=== PATIENT | male | born 1960 | race African-American/Black ===

== ENCOUNTER 2020-09-11 14:27 | Inpatient (IN) | payer MEDICAID, OTHER, SELFPAY ==
--- NOTE | 2020-09-11 18:25 | PC.NURSE ---
PATIENT'S VISUAL MERCHANDISING ASSISTANT EBENEZER CALLS AT THIS TIME INQUIRING ON STATUS OF PATIENT. EBENEZER LEAVES NUMBER TO CALL IF PATIENT IS ADMITTED, OR IF DISCHARGED FOR RIDE: [phone]
[2020-09-11 18:49] VITALS: BP 136/95; PULSE 124; RESP 18; TEMP 37.1; O2SAT 99; BMI 19.4
[2020-09-11] MEDS: 0.9 % Sodium Chloride 1,000 ML 999 ML IVCONT ×2 (20:47→23:33)
[2020-09-11 21:17] LABS: Basophils Percent Auto 0.5 % (0-2); MANUAL DIFF FLAG SCAN; Mean Corpuscular Hemoglobin 20.2 pg (27.0-33.0); SCAN SMEAR FLAG 1
[2020-09-11 21:19] LABS: Eosinophils Absolute Auto 0.3 X10*3/uL (0.0-0.4); Eosinophils Percent Auto 4.4 % (0-4); Hematocrit 30.9 % (42-52); Imm Gran Abs Auto 0.01 X10*3/uL (0.00-0.03); Imm Gran Pct Auto 0.2 % (0.0-0.4); Lymphocytes Percent Auto 16.2 % (20-40); Mean Corpuscular HGB Conc 32.4 g/dl (31.0-36.0); Monocytes Absolute Auto 0.6 X10*3/uL (0.1-1.2); Monocytes Percent Auto 10.3 % (2-11); Neutrophils Absolute Auto 4.2 X10*3/uL (2.0-8.3); Neutrophils Percent Auto 68.4 % (45-73); Red Blood Count 4.94 X10*6/uL (4.60-5.80); Red Cell Distribution Width 18.3 % (11.0-16.0); White Blood Count 6.1 X10*3/uL (4.8-10.8)
[2020-09-11 21:22] LABS: INTERNATIONAL NORM RATIO 2.1 (0.9-1.1); Prothrombin Time 24.6 SEC (10.8-13.0)
[2020-09-11 21:34] LABS: Alanine Aminotransferase 55 U/L (0-40); Albumin Level 3.2 g/dL (3.5-5.0); Alkaline Phosphatase 100 U/L (39-117); Anion Gap 16 (12-20); Aspartate Amino Transferase 66 U/L (5-37); Bilirubin Direct 3.8 mg/dL (0.0-0.5); Bilirubin Total 5.9 mg/dL (0.0-1.0); Blood Urea Nitrogen 33 mg/dL (9-16); Calcium 8.3 mg/dL (8.4-10.2); Carbon Dioxide 23 mmol/L (22-29); Chloride 95 mmol/L (96-108); Creatinine Clr Calc Pharmacy 41.8; Estimated Glomerular Filt Rate 47; Glucose Random 90 mg/dL (60-115); Lipase 53 U/L (8-78); Sodium 130 mmol/L (135-145); Total Protein 7.2 g/dL (6.5-8.0)
[2020-09-11 21:35] LABS: Mean Corpuscular Volume 62.6 fL (80-98)
[2020-09-11 21:36] LABS: NRBC Pct Auto 2.8 /100WBC (0.0-0.2); PLT ABN DIST 1; Platelet Count 78 X10*3/uL (160-400)
[2020-09-11 21:38] LABS: SLIDE REVIEW VERIFIED
[2020-09-11 22:04] LABS: Glucose Urine UA NEG (NEG); Leukocyte Esterase Urine NEG (NEG); Nitrite Urine POS (NEG); PH 5.5 (5.0-8.0); Urine Blood NEG (NEG); Urine Ketones NEG (NEG); Urine Protein TRACE MG/DL (NEG-TRACE)
[2020-09-11 22:05] LABS: Appearance Urine CLEAR; Color Urine YELLOW
[2020-09-11 22:11] LABS: Bacteria Urine 1+ /LPF; RBC Urine 0 /HPF (0); Squamous Epithelial Cell Urine TRACE /LPF; WBC Urine 0 /HPF (0-4)
--- NOTE | 2020-09-11 22:34 | CT_ITS ---
EXAMINATION: CT ABDOMEN AND PELVIS WITHOUT CONTRAST CLINICAL INFORMATION: Abdominal pain COMPARISON: None TECHNIQUE: Multidetector volumetric imaging was performed from the superior aspect of the liver through the pubic symphysis. Sagittal and coronal reformatted images were obtained on the technologist's workstation. This CT examination was performed using dose optimization techniques as appropriate, variously including the following: *Automated exposure control *Adjustment of mA and/or kV according to patient size (this includes techniques or standardized protocols for targeted exams where dose is matched to indication/reason for exam; i.e. extremities or head) *Use of iterative reconstruction technique DLP: 404 mGy-cm FINDINGS: LUNG BASES: Trace right pleural effusion. Cardiomegaly. Small pericardial effusion. LIVER, GALLBLADDER, AND BILIARY TREE: The liver is normal in size, shape, and attenuation. No focal hepatic lesion or biliary ductal dilatation is present. The gallbladder is unremarkable. PANCREAS: Grossly unremarkable. SPLEEN: Unremarkable. ADRENAL GLANDS: Unremarkable. KIDNEYS AND URETERS: The kidneys are normal in size, shape, and attenuation. No hydronephrosis, hydroureter, or calculi seen. No perinephric stranding. BLADDER: Partially distended with mildly thick-walled appearance. GASTROINTESTINAL TRACT: No evidence of bowel obstruction. There is mild mural prominence of the ascending colon, of uncertain clinical significance without focal luminal distention. Appendix is suspected to be nondilated. There is a moderate volume of ascites. No free air is seen. ABDOMINAL WALL: No significant hernia is appreciated. LYMPH NODES: Normal. VASCULAR: Mild scattered atherosclerotic calcifications noted. PELVIC VISCERA: Unremarkable. OSSEOUS STRUCTURES: Unremarkable. IMPRESSION: 1. Moderate volume ascites. 2. Mild mural prominence of the ascending colon, of uncertain clinical significance due to incomplete distention. In the proper clinical setting, a colitis cannot be excluded. This could also be reactive in the setting of ascites. 3. Cardiomegaly with small pericardial effusion. Trace right pleural effusion.
[2020-09-11 23:55] VITALS: BP 114/91; PULSE 100; RESP 16; TEMP 35.7; O2SAT 100
[2020-09-12] VITALS (14 sets, daily range): BP systolic 90–129; BP diastolic 61–80; PULSE 62–132; RESP 14–18; TEMP 35.3–37.1; O2SAT 98–100; BMI 20.9
--- NOTE | 2020-09-12 00:18 | ED_ITS ---
HPI - Abdominal Pain General Chief Complaint: Abdominal Pain Stated Complaint: LOW ABD PAIN,SEEN FOR SAME Time Seen by Provider: 09/11/20 20:06 History of Present Illness HPI narrative: Patient presents to ED for mild lower abdominal pain. Patient states also feeling constipated. Patient states no nausea, vomiting, fever, or chills. Patient denies any hematuria, flank pain, fever, or chills. Pain started today MD elicited complaint: abdominal pain Location: RLQ and LLQ Quality: sharp Radiation: none Related Data Home Medications Medication Instructions Recorded Confirmed benztropine 2 mg PO BID 09/12/20 09/12/20 digoxin [Digitek] 125 mcg PO DAILY 09/12/20 09/12/20 metoprolol tartrate 25 mg PO BID 09/12/20 09/12/20 midodrine 5 mg PO TID 09/12/20 09/12/20 omeprazole 40 mg PO DAILY 09/12/20 09/12/20 risperidone 2 mg PO BID 09/12/20 09/12/20 warfarin 7.5 mg PO DAILY 09/12/20 09/12/20 Allergies Allergy/AdvReac Type Severity Reaction Status Date / Time Fish Containing Products Allergy Unknown UNKNOWN Unverified 09/11/20 18:52 PEPPERS, JALAPENO Allergy Unknown UNKNOWN Uncoded 09/11/20 18:52 Review of Systems Review of Systems Yes all other systems are reviewed and are negative Constitutional: Reports as per HPI, Reports no additional constitutional complaints, Denies anorexia, Denies body ache(s), Denies chills, Denies fatigue, Denies increased appetite and Denies lethargy Eyes: Reports as per HPI and Reports no additional eye complaints Reports system reviewed and no additional complaints, except as documented and Reports as per HPI Cardiovascular: Reports as per HPI and Reports no additional cardiovascular complaints Respiratory: Reports as per HPI and Reports no additional respiratory complaints Gastrointestinal: Reports abdominal pain, Denies belching, Denies melena, Denies bloating, Denies hematochezia, Denies change in bowel habits, Denies tenesmus, Denies change in stool character, Denies coffee ground emesis and Reports constipation Genitourinary: Reports no additional male genitourinary complaints and Reports as per HPI Comments: dysuria Musculoskeletal: Reports no additional musculoskeletal complaints and Reports as per HPI Reports system reviewed and no additional complaints, except as documented and Denies confusion Psychiatric: Denies confusion Endocrine: Denies fatigue Physical Exam Vital Signs: Vital Signs: Vital Signs Temp Pulse Resp BP Pulse Ox 09/11/20 23:55 96.3 F L 100 16 114/91 H 100 09/11/20 18:49 98.7 F 124 H 18 136/95 H 99 Body Mass Index 19.4 Const: General: cooperative, healthy appearing, comfortable, no acute distress, well developed, alert, awake and Physically active; No acute distress or confusion Orientation/consciousness: patient oriented x3 and No confusion HENMT: Head: Yes normal to inspection Eyes: General: appearance normal, both eyes and all related structures Neck: Neck: Yes normal visual inspection, Yes full ROM, Yes no lymphadenopathy, No positive Brudzinski's sign and No positive Kernig's sign Chest: Chest palpation & inspection: normal inspection of the chest and normal palpation of entire chest wall Resp: Effort & Inspection: normal respiratory effort, able to speak in complete sentences, normal respiratory pattern, no audible wheezes, no cough, respiratory effort not decreased, no grunting, no nasal flaring and no paradoxical thoraco-abdom movements Cardio: Jugular venous distension: no JVD Heart sounds: S1 normal heart sound present and S2 normal heart sound present GI: Inspection: Yes distended ( history of ascites. Liver failure.) Palpation (GI): Soft to palpation, not firm, Tenderness to palpation present (GI) (mild) in the LLQ and in the RLQ, no guarding and not rigid : General: No CVA tenderness and Yes no CVA tenderness Back/Spine/Pelvis: Back: no CVA tenderness, No CVA tenderness and No back tenderness Skin: General skin exam: no rashes or lesions noted Neuro: General: patient oriented x3, CN's II-XI intact bilaterally and No confusion Cranial nerves: Yes CN's II-XII intact bilaterally Extrem: General: Yes normal to inspection, Yes full ROM and Yes capillary refill normal Psych: Appearance: grossly normal, well kempt and not disheveled Course Course Course Narrative: although patient has only mild left quadrant tenderness, p atient present with CT scan to rule out any diverticulitis any medical/surgical emergency. Patient given IV fluids. Reevaluation(s) Reevaluation #1: Patient labs show initial RUDY. Patient given 2 bags of fluid and will repeat chemistry. Patient's urine came back positive for UTI. CT scan shows moderate ascite. presently history physical exam does not indicate SBP. Patient does not have any gauring, rigindity, or perioneal signs. Patient is afebrile, and negative elevated white blood cell count. Once again patient states mild pain was only in the left and right lower quadrant. Patient was given colace. patient was adamant that he was constipated. patient had bowel movement after taking colace. Time: 00:25 Reevaluation #2: patient after 2 bags of fluid creatinine is still elevated. Patient if still in acute kidney Failure. Case presented to hospitalist who evaluated patient and accepted the case. She agrees clinically patient does not present as SBP. CT scan negative for pyelonephritis. Negative for CVA or flanks. Abdomen on re-evaluation is benign and nontender Time: 02:29 MDM - Abdominal Pain MDM Narrative Medical decision making narrative: acute kidney failure. UTI. Patient will be admitted. Lab Data Result diagrams: 09/11/20 20:47 09/12/20 00:41 Labs: Lab Results 09/11/20 09/11/20 09/11/20 Range/Units 20:47 20:47 20:47 WBC 6.1 (4.8-10.8) X10*3/uL RBC 4.94 (4.60-5.80) X10*6/uL Hgb 10.0 L (14.0-18.0) g/dl Hct 30.9 L (42-52) % MCV 62.6 L (80-98) fL MCH 20.2 L (27.0-33.0) pg MCHC 32.4 (31.0-36.0) g/dl RDW 18.3 H (11.0-16.0) % Plt Count 78 L (160-400) X10*3/uL MPV Not Reportable Immature Gran % (Auto) 0.2 (0.0-0.4) % Neut % (Auto) 68.4 (45-73) % Lymph % (Auto) 16.2 L (20-40) % [place] % (Auto) 10.3 (2-11) % Eos % (Auto) 4.4 H (0-4) % Baso % (Auto) 0.5 (0-2) % Lymph # (Auto) 1.0 L (1.2-4.9) X10*3/uL [place] # (Auto) 0.6 (0.1-1.2) X10*3/uL Eos # (Auto) 0.3 (0.0-0.4) X10*3/uL Baso # (Auto) 0.0 (0.0-0.2) X10*3/uL Abs Immat Gran (auto) 0.01 (0.00-0.03) X10*3/uL Absolute Neuts (auto) 4.2 (2.0-8.3) X10*3/uL Absolute Nucleated RBC 0.170 H (0.0-0.012) X10*3/uL Nucleated RBC % (auto) 2.8 H (0.0-0.2) /100WBC Smear Tech's Comments VERIFIED PT 24.6 H (10.8-13.0) SEC INR 2.1 H (0.9-1.1) APTT 36.0 (24.1-38.0) SEC Sodium 130 L (135-145) mmol/L Potassium 4.0 (3.3-5.1) mmol/l Chloride 95 L (96-108) mmol/L Carbon Dioxide 23 (22-29) mmol/L Anion Gap 16 (12-20) BUN 33 H (9-16) mg/dL Creatinine 1.53 H (0.5-1.4) mg/dL Estim Creat Clear Calc 41.8 Estimated GFR 47 Random Glucose 90 (60-115) mg/dL Calcium 8.3 L (8.4-10.2) mg/dL Total Bilirubin 5.9 H (0.0-1.0) mg/dL Direct Bilirubin 3.8 H (0.0-0.5) mg/dL AST 66 H (5-37) U/L ALT 55 H (0-40) U/L Alkaline Phosphatase 100 (39-117) U/L Total Protein 7.2 (6.5-8.0) g/dL Albumin 3.2 L (3.5-5.0) g/dL Lipase 53 (8-78) U/L Urine Color Urine Appearance Urine pH (5.0-8.0) Ur Specific [place] (1.005-1.025) Urine Protein (NEG-TRACE) MG/DL Urine Glucose (UA) (NEG) MG/DL Urine Ketones (NEG) MG/DL Urine Blood (NEG) Urine Nitrite (NEG) Ur Leukocyte Esterase (NEG) Urine RBC (0) /HPF Urine WBC (0-4) /HPF Ur Squamous Epith Cells /LPF Urine Bacteria /LPF 09/11/20 09/11/20 09/12/20 Range/Units 21:55 21:55 00:41 WBC (4.8-10.8) X10*3/uL RBC (4.60-5.80) X10*6/uL Hgb (14.0-18.0) g/dl Hct (42-52) % MCV (80-98) fL MCH (27.0-33.0) pg MCHC (31.0-36.0) g/dl RDW (11.0-16.0) % Plt Count (160-400) X10*3/uL MPV Immature Gran % (Auto) (0.0-0.4) % Neut % (Auto) (45-73) % Lymph % (Auto) (20-40) % [place] % (Auto) (2-11) % Eos % (Auto) (0-4) % Baso % (Auto) (0-2) % Lymph # (Auto) (1.2-4.9) X10*3/uL [place] # (Auto) (0.1-1.2) X10*3/uL Eos # (Auto) (0.0-0.4) X10*3/uL Baso # (Auto) (0.0-0.2) X10*3/uL Abs Immat Gran (auto) (0.00-0.03) X10*3/uL Absolute Neuts (auto) (2.0-8.3) X10*3/uL Absolute Nucleated RBC (0.0-0.012) X10*3/uL Nucleated RBC % (auto) (0.0-0.2) /100WBC Smear Tech's Comments PT (10.8-13.0) SEC INR (0.9-1.1) APTT (24.1-38.0) SEC Sodium 131 L (135-145) mmol/L Potassium 3.6 (3.3-5.1) mmol/l Chloride 99 (96-108) mmol/L Carbon Dioxide 22 (22-29) mmol/L Anion Gap 14 (12-20) BUN 31 H (9-16) mg/dL Creatinine 1.42 H (0.5-1.4) mg/dL Estim Creat Clear Calc 45.1 Estimated GFR 51 Random Glucose 91 (60-115) mg/dL Calcium 7.8 L (8.4-10.2) mg/dL Total Bilirubin 5.5 H (0.0-1.0) mg/dL Direct Bilirubin (0.0-0.5) mg/dL AST 55 H (5-37) U/L ALT 50 H (0-40) U/L Alkaline Phosphatase 92 (39-117) U/L Total Protein 6.4 L (6.5-8.0) g/dL Albumin 2.9 L (3.5-5.0) g/dL Lipase (8-78) U/L Urine Color YELLOW Cancelled Urine Appearance CLEAR Cancelled Urine pH 5.5 Cancelled (5.0-8.0) Ur Specific [place] 1.020 Cancelled (1.005-1.025) Urine Protein TRACE Cancelled (NEG-TRACE) MG/DL Urine Glucose (UA) NEG Cancelled (NEG) MG/DL Urine Ketones NEG Cancelled (NEG) MG/DL Urine Blood NEG Cancelled (NEG) Urine Nitrite POS H Cancelled (NEG) Ur Leukocyte Esterase NEG Cancelled (NEG) Urine RBC 0 (0) /HPF Urine WBC 0 (0-4) /HPF Ur Squamous Epith Cells TRACE /LPF Urine Bacteria 1+ /LPF Discharge Plan Discharge Clinical Impression: Acute kidney failure, Acute UTI Patient Disposition: Admitted As Inpatient [facility] Social History Social History Alcohol intake: never Smoking Status: Never smoker Smoked in Last 30 Days: No Use of substances other than those prescribed or required for medical reasons: No Advance Directives: No Advance Directives Information Provided: No
[2020-09-12] MEDS: Docusate Sodium 100 MG CAPSULE PO (00:44)
[2020-09-12 01:09] LABS: Alanine Aminotransferase 50 U/L (0-40); Albumin Level 2.9 g/dL (3.5-5.0); Alkaline Phosphatase 92 U/L (39-117); Anion Gap 14 (12-20); Aspartate Amino Transferase 55 U/L (5-37); Bilirubin Total 5.5 mg/dL (0.0-1.0); Blood Urea Nitrogen 31 mg/dL (9-16); Calcium 7.8 mg/dL (8.4-10.2); Carbon Dioxide 22 mmol/L (22-29); Chloride 99 mmol/L (96-108); Creatinine Clr Calc Pharmacy 45.1; Estimated Glomerular Filt Rate 51; Glucose Random 91 mg/dL (60-115); Potassium 3.6 mmol/l (3.3-5.1); Sodium 131 mmol/L (135-145); Total Protein 6.4 g/dL (6.5-8.0)
--- NOTE | 2020-09-12 01:14 | PC.NURSE ---
pt ambulated to bathroom steady gait, +bm, tolerating po well. asking to go home. abd soft and nontener, nad.
--- NOTE | 2020-09-12 03:49 | P.HPIM_ITS ---
History of Present Illness Date of Service: 09/12/20 Chief Complaint: abdominal pain this is a 60-year-old male with history of CHF, atrial fib, who presents to the hospital with complaints of abdominal pain. although pt is awake, he is a poor historian. He is able to answer some questions but not all. He tells me that he has been having abdominal pain and constipated and takes Colace. He keeps repeating this statement. He is unable to follow my questions appropriately but is able to tell me that he has been having nausea vomiting and when asked reports that has not been eating and drinking well.pointed to the abdominal pain As PA all over his abdomen. pain for the past 3 weeks. Nausea and vomiting. Patient denied any fever or chills, no diarrhea or constipation. I am unable to obtain review of system due to patient's clinical Status. on arrival to the ED patient's temperature is 98.7?, pulse rate of 124 respiratory rate of 18 blood pressure 136/95 satting 99% on room air labs are significant for hemoglobin of 10 which is around his baseline, BUN of 31, creatinine of 1.42, sodium of 131, calcium 7.8, total bili of 5.5, direct bili of 3.8, AST of 55, ALT of 50, albumin of 2.9 CT abdomen showed moderate volume ascites, mild mural prominence of the ascending colon of uncertain clinical significance due to incomplete distention. In the proper clinical setting of colitis cannot be excluded. history is obtained from chart as patient not cooperating with history taking past medical history: Heart failure with with preserved ejection fraction AFib on warfarin, severe mitral stenosis, schizophrenia, history of TBI, history of congestive hepatic hepatopathy past surgical history: unknown family history: The patient is unable to provide any family history social history: Lives with his sister, history of alcohol abuse in the past but not currently. Rest of social history is on Review of Systems Review of Systems: Yes all other systems are reviewed and are negative Neurologic: Reports system reviewed and no additional complaints, except as documented PMFSH Social History Alcohol intake: never Smoking Status: Never smoker Smoked in Last 30 Days: No Use of substances other than those prescribed or required for medical reasons: No Advance Directives: No Advance Directives Information Provided: No Meds Allergies Allergy/AdvReac Type Severity Reaction Status Date / Time Fish Containing Products Allergy Unknown UNKNOWN Unverified 09/11/20 18:52 PEPPERS, JALAPENO Allergy Unknown UNKNOWN Uncoded 09/11/20 18:52 Home Medications Medication Instructions Recorded Confirmed Type benztropine 2 mg PO BID 09/12/20 09/12/20 History digoxin [Digitek] 125 mcg PO DAILY 09/12/20 09/12/20 History metoprolol tartrate 25 mg PO BID 09/12/20 09/12/20 History midodrine 5 mg PO TID 09/12/20 09/12/20 History omeprazole 40 mg PO DAILY 09/12/20 09/12/20 History risperidone 2 mg PO BID 09/12/20 09/12/20 History warfarin 7.5 mg PO DAILY 09/12/20 09/12/20 History Physical Exam Vital Signs and Narrative: Vital Signs: Last Vital Signs Temp 98.7 F 09/12/20 02:00 Pulse 98 09/12/20 02:00 Resp 14 09/12/20 02:00 BP 110/80 09/12/20 02:00 Pulse Ox 98 09/12/20 02:00 Body Mass Index 19.4 Eyes: General: appearance normal, both eyes and all related structures Pupils: Equal, round and reactive pupils present Resp: Effort & Inspection: normal respiratory effort and able to speak in complete sentences Auscultation: clear to auscultation bilaterally Cardio: Rate: regular rate Rhythm: regular rhythm GI: Other: abdomen is soft but tender throughout, no rebound or guarding Palpation (GI): Soft to palpation Auscultation: normal bowel sounds Skin: General skin exam: no rashes or lesions noted Neuro: Cranial nerves: Yes Equal, round and reactive pupils present Cognition (Neuro): normal cognition Extrem: General: Yes normal to inspection and Yes no pedal edema Results Labs Labs: Laboratory Tests 09/11/20 09/11/20 09/11/20 20:47 20:47 20:47 WBC 6.1 RBC 4.94 Hgb 10.0 L Hct 30.9 L MCV 62.6 L MCH 20.2 L MCHC 32.4 RDW 18.3 H Plt Count 78 L MPV Not Reportable Immature Gran % (Auto) 0.2 Neut % (Auto) 68.4 Lymph % (Auto) 16.2 L [place] % (Auto) 10.3 Eos % (Auto) 4.4 H Baso % (Auto) 0.5 Lymph # (Auto) 1.0 L [place] # (Auto) 0.6 Eos # (Auto) 0.3 Baso # (Auto) 0.0 Abs Immat Gran (auto) 0.01 Absolute Neuts (auto) 4.2 Absolute Nucleated RBC 0.170 H Nucleated RBC % (auto) 2.8 H Smear Tech's Comments VERIFIED PT 24.6 H INR 2.1 H APTT 36.0 Sodium 130 L Potassium 4.0 Chloride 95 L Carbon Dioxide 23 Anion Gap 16 BUN 33 H Creatinine 1.53 H Estim Creat Clear Calc 41.8 Estimated GFR 47 Random Glucose 90 Calcium 8.3 L Total Bilirubin 5.9 H Direct Bilirubin 3.8 H AST 66 H ALT 55 H Alkaline Phosphatase 100 Total Protein 7.2 Albumin 3.2 L Lipase 53 Urine Color Urine Appearance Urine pH Ur Specific [place] Urine Protein Urine Glucose (UA) Urine Ketones Urine Blood Urine Nitrite Ur Leukocyte Esterase Urine RBC Urine WBC Ur Squamous Epith Cells Urine Bacteria 09/11/20 09/11/20 09/12/20 21:55 21:55 00:41 WBC RBC Hgb Hct MCV MCH MCHC RDW Plt Count MPV Immature Gran % (Auto) Neut % (Auto) Lymph % (Auto) [place] % (Auto) Eos % (Auto) Baso % (Auto) Lymph # (Auto) [place] # (Auto) Eos # (Auto) Baso # (Auto) Abs Immat Gran (auto) Absolute Neuts (auto) Absolute Nucleated RBC Nucleated RBC % (auto) Smear Tech's Comments PT INR APTT Sodium 131 L Potassium 3.6 Chloride 99 Carbon Dioxide 22 Anion Gap 14 BUN 31 H Creatinine 1.42 H Estim Creat Clear Calc 45.1 Estimated GFR 51 Random Glucose 91 Calcium 7.8 L Total Bilirubin 5.5 H Direct Bilirubin AST 55 H ALT 50 H Alkaline Phosphatase 92 Total Protein 6.4 L Albumin 2.9 L Lipase Urine Color YELLOW Cancelled Urine Appearance CLEAR Cancelled Urine pH 5.5 Cancelled Ur Specific [place] 1.020 Cancelled Urine Protein TRACE Cancelled Urine Glucose (UA) NEG Cancelled Urine Ketones NEG Cancelled Urine Blood NEG Cancelled Urine Nitrite POS H Cancelled Ur Leukocyte Esterase NEG Cancelled Urine RBC 0 Urine WBC 0 Ur Squamous Epith Cells TRACE Urine Bacteria 1+ Imaging CT scan - abdomen: Radiologist's impression: IMPRESSION: 1. Moderate volume ascites. 2. Mild mural prominence of the ascending colon, of uncertain clinical significance due to incomplete distention. In the proper clinical setting, a colitis cannot be excluded. This could also be reactive in the setting of ascites. 3. Cardiomegaly with small pericardial effusion. Trace right pleural effusion. Assessment and Plan (1) Colitis: Status: Acute (2) Acute kidney failure: Status: Acute (3) Acute UTI: Status: Acute (4) Afib: Status: Acute (5) CHF (congestive heart failure): Status: Acute 60-year-old male who presented to the hospital with complaints of abdominal pain found to have RUDY as well as colitis # abdominal pain - most likely secondary to colitis versus ascites, SBP less likely, - patient has no leukocytosis, afebrile - no abdominal rebound or guard - CT finding as above Plan - will start him on Flagyl and ceftriaxone # RUDY - most likely prerenal secondary to dehydration and poor oral intake - improved with IV fluids given in the ED - will continue IV fluid - urine sodium creatinine - follow BMP # UTI - patient urine positive for nitrates although no WBC and leukocyte Estrace plan - will start patient ceftriaxone for the above which will cover his UT # AFib - rate controlled - on warfarin with a therapeutic INR of 2.1 - will continue warfarin, and metoprolol # history of CHF with preserved ejection fraction - no acute exacerbate - continue metoprolol and digoxin DVT prophylaxis: Warfarin date of service 09/12/2020
[2020-09-12 06:44] LABS: Prothrombin Time 24.3 SEC (10.8-13.0)
[2020-09-12] MEDS: Enoxaparin Sodium 40 MG/0.4 ML SYRINGE SUBCUT (06:50)
[2020-09-12] MEDS: 0.9 % Sodium Chloride 1,000 ML 100 ML IVCONT ×2 (07:00→16:32)
[2020-09-12] MEDS: cefTRIAXone sodium 1 GM in 0.9 % Sodium Chloride 50 ML IV (07:00)
[2020-09-12] MEDS: metroNIDAZOLE/NS 500 MG/100 ML PIGGYBACK 100 MG IV ×2 (07:37→15:00)
[2020-09-12] MEDS: Digoxin 0.125 MG TABLET PO (08:23)
[2020-09-12] MEDS: Midodrine HCl 5 MG TABLET PO ×3 (08:24→22:17)
[2020-09-12] MEDS: risperiDONE 2 MG TABLET PO ×2 (08:24→22:20)
[2020-09-12] MEDS: Omeprazole 40 MG CAPSULE.DR PO (08:24)
[2020-09-12] MEDS: Metoprolol Tartrate 25 MG TABLET PO ×2 (08:24→22:20)
[2020-09-12 08:39] LABS: C Reactive Protein 2.03 mg/dL (< or = 0.50)
--- NOTE | 2020-09-12 08:48 | MHC.CM.PN ---
pt lives c his uncle and sister in their home. he reports that he is independent in his care. his family can help him c any additional needs he may have at dc including a ride home. pt denies the need for vna at dc. dc plan is home c family, no svcs. cm to cont. to follow.
[2020-09-12 10:09] LABS: INTERNATIONAL NORM RATIO 2.1 (0.9-1.1); Prothrombin Time 25.1 SEC (10.8-13.0)
[2020-09-12 12:29] LABS: Leukocytes Stool Qualitative NEGATIVE (NEGATIVE)
[2020-09-12] MEDS: Warfarin Sodium 7.5 MG TABLET PO (14:55)
--- NOTE | 2020-09-12 15:28 | P.PNIM_ITS ---
Subjective Subjective Date of Service: 09/12/20 Interval History: c/o abd pain but otherwise a very poor historian and as such ROS is limited Physical Exam Vital Signs: Vital Signs: Vital Signs Temp Pulse Resp BP Pulse Ox 09/12/20 14:56 102 H 90/61 09/12/20 12:00 97.2 F 62 18 118/74 98 09/12/20 08:24 92 129/80 09/12/20 08:23 92 09/12/20 07:25 97.2 F 92 18 129/80 99 09/12/20 05:31 97.8 F 115 H 18 113/76 100 09/12/20 02:00 98.7 F 98 14 110/80 98 09/11/20 23:55 96.3 F L 100 16 114/91 H 100 09/11/20 18:49 98.7 F 124 H 18 136/95 H 99 Body Mass Index 20.9 Const: General: no acute distress Resp: Effort & Inspection: normal respiratory effort Auscultation: clear to auscultation bilaterally Cardio: Rate: regular rate Rhythm: regular rhythm GI: Inspection: Yes normal to inspection Palpation (GI): Tenderness to palpation present (GI) (generazlied) with no rebound tenderness Extrem: General: Yes no clubbing, cyanosis or edema Objective Data Current Medications Generic Name Dose Route Start Last Admin Trade Name Freq PRN Reason Stop Dose Admin Acetaminophen 650 mg 09/12/20 05:30 Acetaminophen 325 Mg Tablet PO Q6H PRN Pain, Mild (Pain Scale 1-3) Digoxin 0.125 mg 09/12/20 09:00 09/12/20 08:23 Digoxin 0.125 Mg Tablet PO 0.125 mg DAILY EUSEBIO Administration Docusate Sodium 100 mg 09/12/20 05:30 Docusate Sodium 100 Mg Capsule PO DAILY PRN Constipation Sodium Chloride 1,000 mls @ 100 mls/hr 09/12/20 05:30 09/12/20 07:00 Ns IVCONT 100 mls/hr .Q10H EUSEBIO Administration Ceftriaxone Sodium 1 gm/ 50 mls @ 100 mls/hr 09/12/20 06:00 09/12/20 07:36 Sodium Chloride IV Infused Q24H EUSEBIO Infusion Metronidazole 500 mg in 100 mls @ 100 mls/hr 09/12/20 06:00 09/12/20 15:00 Flagyl IV 100 mls/hr Q8H EUSEBIO Administration Metoprolol Tartrate 25 mg 09/12/20 09:00 09/12/20 08:24 Metoprolol Tartrate 25 Mg Tablet PO 25 mg BID EUSEBIO Administration Protocol Midodrine 5 mg 09/12/20 09:00 09/12/20 14:56 Midodrine Hcl 5 Mg Tablet PO 5 mg TID EUSEBIO Administration Omeprazole 40 mg 09/12/20 09:00 09/12/20 08:24 Omeprazole 40 Mg Capsule.Dr PO 40 mg DAILY EUSEBIO Administration Ondansetron HCl 4 mg 09/12/20 05:30 Ondansetron Hcl 4 Mg/2 Ml Vial IVPUSH Q8H PRN Nausea and Vomiting Risperidone 2 mg 09/12/20 09:00 09/12/20 08:24 Risperidone 2 Mg Tablet PO 2 mg BID EUSEBIO Administration Sodium Chloride 3 ml 09/12/20 08:00 09/12/20 15:01 0.9 % Sodium Chloride Flush 3 Ml Syringe IVFLUSH Not Given QSHIFT [facility] Warfarin Sodium 7.5 mg 09/12/20 16:00 09/12/20 14:55 Warfarin Sodium 7.5 Mg Tablet PO 7.5 mg DAILY@1600 EUSEBIO Administration Labs CBC & Chem 7: 09/11/20 20:47 09/12/20 00:41 Labs: Laboratory Results - last 24 hr 09/11/20 09/11/20 09/11/20 20:47 20:47 20:47 MCV 62.6 L MCH 20.2 L MCHC 32.4 RDW 18.3 H Plt Count 78 L MPV Not Reportable Immature Gran % (Auto) 0.2 Neut % (Auto) 68.4 Lymph % (Auto) 16.2 L [place] % (Auto) 10.3 Eos % (Auto) 4.4 H Baso % (Auto) 0.5 Lymph # (Auto) 1.0 L [place] # (Auto) 0.6 Eos # (Auto) 0.3 Baso # (Auto) 0.0 Abs Immat Gran (auto) 0.01 Absolute Neuts (auto) 4.2 Absolute Nucleated RBC 0.170 H Nucleated RBC % (auto) 2.8 H Smear Tech's Comments VERIFIED PT 24.6 H INR 2.1 H APTT 36.0 Anion Gap 16 Estim Creat Clear Calc 41.8 Estimated GFR 47 Random Glucose 90 Calcium 8.3 L Total Bilirubin 5.9 H Direct Bilirubin 3.8 H AST 66 H ALT 55 H Alkaline Phosphatase 100 C-Reactive Protein Total Protein 7.2 Albumin 3.2 L Lipase 53 Urine Color Urine Appearance Urine pH Ur Specific [place] Urine Protein Urine Glucose (UA) Urine Ketones Urine Blood Urine Nitrite Ur Leukocyte Esterase Urine RBC Urine WBC Ur Squamous Epith Cells Urine Bacteria Stool Leukocytes, Qual 09/11/20 09/11/20 09/12/20 21:55 21:55 00:41 MCV MCH MCHC RDW Plt Count MPV Immature Gran % (Auto) Neut % (Auto) Lymph % (Auto) [place] % (Auto) Eos % (Auto) Baso % (Auto) Lymph # (Auto) [place] # (Auto) Eos # (Auto) Baso # (Auto) Abs Immat Gran (auto) Absolute Neuts (auto) Absolute Nucleated RBC Nucleated RBC % (auto) Smear Tech's Comments PT INR APTT Anion Gap 14 Estim Creat Clear Calc 45.1 Estimated GFR 51 Random Glucose 91 Calcium 7.8 L Total Bilirubin 5.5 H Direct Bilirubin AST 55 H ALT 50 H Alkaline Phosphatase 92 C-Reactive Protein 2.03 H Total Protein 6.4 L Albumin 2.9 L Lipase Urine Color YELLOW Cancelled Urine Appearance CLEAR Cancelled Urine pH 5.5 Cancelled Ur Specific [place] 1.020 Cancelled Urine Protein TRACE Cancelled Urine Glucose (UA) NEG Cancelled Urine Ketones NEG Cancelled Urine Blood NEG Cancelled Urine Nitrite POS H Cancelled Ur Leukocyte Esterase NEG Cancelled Urine RBC 0 Urine WBC 0 Ur Squamous Epith Cells TRACE Urine Bacteria 1+ Stool Leukocytes, Qual 09/12/20 09/12/20 09/12/20 06:01 08:40 09:18 MCV MCH MCHC RDW Plt Count MPV Immature Gran % (Auto) Neut % (Auto) Lymph % (Auto) [place] % (Auto) Eos % (Auto) Baso % (Auto) Lymph # (Auto) [place] # (Auto) Eos # (Auto) Baso # (Auto) Abs Immat Gran (auto) Absolute Neuts (auto) Absolute Nucleated RBC Nucleated RBC % (auto) Smear Tech's Comments PT 24.3 H 25.1 H INR 2.0 H 2.1 H APTT Anion Gap Estim Creat Clear Calc Estimated GFR Random Glucose Calcium Total Bilirubin Direct Bilirubin AST ALT Alkaline Phosphatase C-Reactive Protein Total Protein Albumin Lipase Urine Color Urine Appearance Urine pH Ur Specific [place] Urine Protein Urine Glucose (UA) Urine Ketones Urine Blood Urine Nitrite Ur Leukocyte Esterase Urine RBC Urine WBC Ur Squamous Epith Cells Urine Bacteria Stool Leukocytes, Qual NEGATIVE Microbiology Microbiology Results: Microbiology 09/11/20 22:05 Urine clean catch - Clean Catch Midstream Urine Culture - Preliminary No growth to date. Progress Note: A&P (1) Colitis: Status: Acute Assessment and Plan: hospital d#2 60yo M with schizophrenia, HFpEF, mitral stenosis, pHTN p/w abd pain admitted for colitis, [place] 60-year-old male who presented to the hospital with complaints of abdominal pain found to have RUDY as well as colitis # abd pain # colitis # ascites - suspect colitis, less likely SBP. ceftriaxone + metronidazole d#2. check stool Cx, C diff, WBCs - GI consultation - to consider paracentesis? hx congestive hepatopathy # RUDY - suspect prerenal, improving. d/c IV fluids given hx CHF # AF - continue metoprolol - continue warfarin, INR therapeutic # HFpEF - continue metoprolol, digoxin - avoid fluid overload # history of CHF with preserved ejection fraction - no acute exacerbation - continue metoprolol and digoxin
--- NOTE | 2020-09-12 16:03 | MHC.PIE ---
P: ~1600; Patient is hypothermic, Temp 95.5 rectally. I: Assessment, vitals. Dr. Lopez notified. Stat COVID test ordered. Bear huger placed on patient. E: Patient awake, A/O to person/place, vague to situation. Patient denies sob, chest pain or dizziness. Extremities cool to touch, sclera jaundice. Will transfer patient to pod c. Next nurse to re-evaluate.
[2020-09-12 19:11] LABS: SARS COV2 PCR INHOUSE NEGATIVE (Negative)
[2020-09-12] MEDS: Acetaminophen 325 MG TABLET 650 MG PO (22:19)
[2020-09-13] VITALS (9 sets, daily range): BP systolic 100–123; BP diastolic 71–86; PULSE 77–111; RESP 16–18; TEMP 35.6–36.4; O2SAT 97–100; BMI 22.2
[2020-09-13] MEDS: metroNIDAZOLE/NS 500 MG/100 ML PIGGYBACK 100 MG IV ×4 (00:42→21:19)
[2020-09-13] MEDS: 0.9 % Sodium Chloride Flush 3 ML SYRINGE IVFLUSH ×4 (02:20→21:20)
[2020-09-13] MEDS: cefTRIAXone sodium 1 GM in 0.9 % Sodium Chloride 50 ML IV (06:38)
[2020-09-13 06:46] LABS: Hematocrit 28.4 % (42-52); Hemoglobin 9.4 g/dl (14.0-18.0); Imm Gran Abs Auto 0.01 X10*3/uL (0.00-0.03); Imm Gran Pct Auto 0.2 % (0.0-0.4); MANUAL DIFF FLAG SCAN; Mean Corpuscular HGB Conc 33.1 g/dl (31.0-36.0); Mean Corpuscular Hemoglobin 20.5 pg (27.0-33.0); Red Blood Count 4.59 X10*6/uL (4.60-5.80); SCAN SMEAR FLAG 1; White Blood Count 5.1 X10*3/uL (4.8-10.8)
[2020-09-13 06:49] LABS: Basophils Percent Auto 0.6 % (0-2); Eosinophils Absolute Auto 0.4 X10*3/uL (0.0-0.4); Eosinophils Percent Auto 7.2 % (0-4); Lymphocytes Percent Auto 18.7 % (20-40); Monocytes Absolute Auto 0.6 X10*3/uL (0.1-1.2); Monocytes Percent Auto 11.7 % (2-11); Neutrophils Absolute Auto 3.2 X10*3/uL (2.0-8.3); Neutrophils Percent Auto 61.6 % (45-73); Red Cell Distribution Width 18.2 % (11.0-16.0)
[2020-09-13] MEDS: Docusate Sodium 100 MG CAPSULE PO (06:54)
[2020-09-13 07:06] LABS: Mean Corpuscular Volume 61.9 fL (80-98); Platelet Count 73 X10*3/uL (160-400)
[2020-09-13 07:07] LABS: PLT ABN DIST 1
[2020-09-13 07:09] LABS: Anion Gap 12 (12-20); Blood Urea Nitrogen 28 mg/dL (9-16); Calcium 7.5 mg/dL (8.4-10.2); Carbon Dioxide 22 mmol/L (22-29); Chloride 103 mmol/L (96-108); Creatinine Clr Calc Pharmacy 54.7; Estimated Glomerular Filt Rate 55; Glucose Random 75 mg/dL (60-115); NRBC Pct Auto 1.8 /100WBC (0.0-0.2); Potassium 3.4 mmol/l (3.3-5.1); Sodium 134 mmol/L (135-145)
--- NOTE | 2020-09-13 07:43 | MHC.PIE ---
P: PATIENT HAS HEART RATE 120-130, DOUBLE CHECKED FOR 120 BY AUSCULTATION, IRREGULARLY IRREGULAR, IS NOT A TELEMETRY PATIENT, HAS HISTORY OF A-FIB AND HISTORY OF HFPEF. 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 BREATHING IS EASY AND REGULAR, CLEAR LUNG SOUNDS WITH DIM BASES AND SPO2 IS 100% ON ROOM AIR. PATIENT WITH IVF RUNNING AT 100 CC/ HOUR, HAS APPARENT JVD. DISCUSSED WITH MD, NEW ORDER FOR TELEMETRY, PATIENT HR SEEN TO BE 125-143 ON MONITOR. ADMINISTERED SCHEDULED METOPROLOL. NEW ORDER FOR ONE TIME TYLENOL FOR 8/10 PAIN. E: PATIENT MOVED OUT OF COVID UNIT HIS TEST RETURNED NEGATIVE.
[2020-09-13 07:45] LABS: SLIDE REVIEW VERIFIED
[2020-09-13 08:21] LABS: INTERNATIONAL NORM RATIO 1.9 (0.9-1.1); Prothrombin Time 22.9 SEC (10.8-13.0)
[2020-09-13] MEDS: Metoprolol Tartrate 25 MG TABLET PO ×2 (09:44→21:20)
[2020-09-13] MEDS: Omeprazole 40 MG CAPSULE.DR PO (09:45)
[2020-09-13] MEDS: Digoxin 0.125 MG TABLET PO (09:45)
[2020-09-13] MEDS: risperiDONE 2 MG TABLET PO ×2 (09:45→21:20)
[2020-09-13] MEDS: Midodrine HCl 5 MG TABLET PO ×3 (09:45→21:20)
--- NOTE | 2020-09-13 10:15 | P.PNIM_ITS ---
Subjective Subjective Date of Service: 09/13/20 Interval History: Abd pain improved. 2 episodes diarrhea yesterday morning. Denies fever Denies chest pain Denies dyspnea or edema Denies hematochezia Physical Exam Vital Signs: Vital Signs: Vital Signs Temp Pulse Resp BP Pulse Ox 09/13/20 09:45 78 123/82 09/13/20 09:44 78 123/82 09/13/20 07:38 97.3 F 101 H 18 118/79 100 09/13/20 03:38 96.0 F L 88 16 121/71 99 09/12/20 23:39 97.8 F 99 18 106/63 99 09/12/20 22:20 132 H 98/80 09/12/20 22:17 132 H 98/80 09/12/20 20:00 98.1 F 120 H 18 98/80 100 09/12/20 18:38 98.3 F 09/12/20 16:14 95.9 F L 09/12/20 15:51 95.5 F L 80 18 117/65 100 09/12/20 14:56 102 H 90/61 09/12/20 12:00 97.2 F 62 18 118/74 98 Body Mass Index 22.2 Const: General: no acute distress Resp: Effort & Inspection: normal respiratory effort Auscultation: clear to auscultation bilaterally Cardio: Rate: regular rate Rhythm: regular rhythm GI: Inspection: Yes normal to inspection Palpation (GI): minimally tender epigastrium Extrem: General: Yes no clubbing, cyanosis or edema Psych: limited insight Objective Data Current Medications Generic Name Dose Route Start Last Admin Trade Name Eloy PRN Reason Stop Dose Admin Acetaminophen 650 mg 09/12/20 05:30 Acetaminophen 325 Mg Tablet PO Q6H PRN Pain, Mild (Pain Scale 1-3) Digoxin 0.125 mg 09/12/20 09:00 09/13/20 09:45 Digoxin 0.125 Mg Tablet PO 0.125 mg DAILY EUSEBIO Administration Docusate Sodium 100 mg 09/12/20 05:30 09/13/20 06:54 Docusate Sodium 100 Mg Capsule PO 100 mg DAILY PRN Administration Constipation Ceftriaxone Sodium 1 gm/ 50 mls @ 100 mls/hr 09/12/20 06:00 09/13/20 07:51 Sodium Chloride IV Infused Q24H EUSEBIO Infusion Metronidazole 500 mg in 100 mls @ 100 mls/hr 09/12/20 06:00 09/13/20 07:44 Flagyl IV 100 mls/hr Q8H EUSEBIO Administration Metoprolol Tartrate 25 mg 09/12/20 09:00 09/13/20 09:44 Metoprolol Tartrate 25 Mg Tablet PO 25 mg BID EUSEBIO Administration Protocol Midodrine 5 mg 09/12/20 09:00 09/13/20 09:45 Midodrine Hcl 5 Mg Tablet PO 5 mg TID EUSEBIO Administration Omeprazole 40 mg 09/12/20 09:00 09/13/20 09:45 Omeprazole 40 Mg Capsule. PO 40 mg DAILY EUSEBIO Administration Ondansetron HCl 4 mg 09/12/20 05:30 Ondansetron Hcl 4 Mg/2 Ml Vial IVPUSH Q8H PRN Nausea and Vomiting Risperidone 2 mg 09/12/20 09:00 09/13/20 09:45 Risperidone 2 Mg Tablet PO 2 mg BID EUSEBIO Administration Sodium Chloride 3 ml 09/12/20 08:00 09/13/20 07:51 0.9 % Sodium Chloride Flush 3 Ml Syringe IVFLUSH 3 ml QSHIFT EUSEBIO Administration Warfarin Sodium 7.5 mg 09/12/20 16:00 09/12/20 14:55 Warfarin Sodium 7.5 Mg Tablet PO 7.5 mg DAILY@1600 EUSEBIO Administration Labs CBC & Chem 7: 09/13/20 05:38 09/13/20 05:38 Labs: Laboratory Results - last 24 hr 09/12/20 09/12/20 09/12/20 08:40 16:50 18:08 MCV MCH MCHC RDW Plt Count MPV Immature Gran % (Auto) Neut % (Auto) Lymph % (Auto) [place] % (Auto) Eos % (Auto) Baso % (Auto) Lymph # (Auto) [place] # (Auto) Eos # (Auto) Baso # (Auto) Abs Immat Gran (auto) Absolute Neuts (auto) Absolute Nucleated RBC Nucleated RBC % (auto) Smear Tech's Comments PT INR Anion Gap Estim Creat Clear Calc Estimated GFR Random Glucose Calcium Stool Leukocytes, Qual NEGATIVE Coronavirus (PCR) Cancelled NEGATIVE 09/13/20 09/13/20 09/13/20 05:38 05:38 07:53 MCV 61.9 L MCH 20.5 L MCHC 33.1 RDW 18.2 H Plt Count 73 L MPV Not Reportable Immature Gran % (Auto) 0.2 Neut % (Auto) 61.6 Lymph % (Auto) 18.7 L [place] % (Auto) 11.7 H Eos % (Auto) 7.2 H Baso % (Auto) 0.6 Lymph # (Auto) 1.0 L [place] # (Auto) 0.6 Eos # (Auto) 0.4 Baso # (Auto) 0.0 Abs Immat Gran (auto) 0.01 Absolute Neuts (auto) 3.2 Absolute Nucleated RBC 0.090 H Nucleated RBC % (auto) 1.8 H Smear Tech's Comments VERIFIED PT 22.9 H INR 1.9 H Anion Gap 12 Estim Creat Clear Calc 54.7 Estimated GFR 55 Random Glucose 75 Calcium 7.5 L Stool Leukocytes, Qual Coronavirus (PCR) Microbiology Microbiology Results: Microbiology 09/12/20 09:55 Stool Stool Culture - Preliminary No stool pathogens to date. 09/11/20 22:05 Urine clean catch - Clean Catch Midstream Urine Culture - Final No growth. Progress Note: A&P (1) Colitis: Status: Acute Assessment and Plan: hospital d#3 60yo M with schizophrenia, HFpEF, mitral stenosis, pHTN, AF p/w abd pain admitted for colitis, RUDY # colitis - ceftriaxone + metronidazole d#2 - stool WBCs, Cx negative to date; awaiting C diff PCR # ascites - to consider paracentesis? hx congestive hepatopathy. GI Consultation # RUDY - prerenal, improving with fluids # AF - continue metoprolol - continue warfarin, INR 1.9 today # HFpEF - continue metoprolol, digoxin - avoid fluid overload
[2020-09-13 11:57] LABS: CDIFF Ag Negative (Negative); CDIFF Internal ctrl Dots and bkg OK (V); CDiff Toxin Negative (Negative)
--- NOTE | 2020-09-13 13:29 | MHC.CM.PN ---
per rounds no dc date at this time cm will contiinue to follow
[2020-09-13] MEDS: Warfarin Sodium 7.5 MG TABLET PO (15:55)
--- NOTE | 2020-09-13 17:41 | PM.EVENT ---
Event Note Event Note: GI Consult-Full note dictated. Hx via patient(limited), RN, and EMR. Imp: 60 yo with some reported diarrhea, although not having much in the way of loose stools today. There has been no sign of bleeding, N/V, nor fevers. His abdominal exam is soft with good BS, but with possibly some component of ascites in relation to his right-sided heart failure. His CT showed very nonspecific changes in the right colon but not definitive for colitis. This may have represented some underdistention of the colon or some colonic wall edema in relation to his right-sided heart failure. I don't think he has any definitive colitis at this time based on his clinical history and CT findings. Rec: Observe, check stool specs for C&S and Cdiff when they become available, I would hold antibiotics at this time, and allow diet as tolerated. I don't think he needs a colonoscopy at this time.Please call me if things worsen from a GI standpoint. Thanks.
--- NOTE | 2020-09-13 21:41 | CONS_ITS ---
DATE OF SERVICE: 09/13/2020 REQUESTING PHYSICIAN: Jayson Lopez MD REASON FOR CONSULTATION: Diarrhea and abnormal CT scan of colon. HISTORY OF PRESENT ILLNESS: This has been obtained from the patient, who is not a very good historian, from his nurse, and from the medical record. The patient is a 60-year-old male, admitted to the hospital on September 12, for evaluation of some abdominal discomfort. He reports some small amount of loose bowel movements. He describes the abdominal discomfort as somewhat generalized in the lower abdomen. He denies any associated nausea, vomiting, nor fevers. He has not noticed any hematochezia nor melena. He reports that his appetite is fair. He presently denies any significant abdominal pain. According to the nursing staff and the patient, he has had about 1 or 2 small bowel movements today. He has been eating fairly well. CURRENT MEDICATIONS: Include IV ceftriaxone, IV Flagyl, metoprolol, digoxin, midodrine, omeprazole, risperidone, warfarin, Colace p.r.n., Zofran p.r.n., and acetaminophen p.r.n. PAST MEDICAL HISTORY: Rheumatic heart disease with some right-sided heart failure, schizophrenia. He has some chronically elevated LFTs with a component of passive liver congestion in relation to right-sided heart failure. Atrial fibrillation. Congestive heart failure. Mitral valve stenosis. Elevated LFTs with some jaundice in relation to right-sided heart failure. He has had surgery on his leg in relation to an injury. He has a history of ascites. He has some type of a history of traumatic brain injury. There is no reported AR, diabetes, nor stroke. SOCIAL HISTORY: He lives with his sister. He does not smoke. There is a significant amount of alcohol. He is originally from [facility]. FAMILY HISTORY: Noncontributory. REVIEW OF SYSTEMS: CONSTITUTIONAL: He has been feeling somewhat weak and tired. CARDIAC: No chest pain. PULMONARY: No coughing nor hemoptysis. GI: As above. PHYSICAL EXAMINATION: GENERAL: The patient is alert, pleasant, comfortable appearing male, in no distress. SKIN: Warm and dry. HEENT: Anicteric sclerae. NECK: Supple. ABDOMEN: Soft and slightly distended. Bowel sounds are normal. There is no focal mass, rebound, or guarding. He may have some ascites based on his exam. LABORATORY DATA: White blood cell count 5.1, hemoglobin 9.4, platelets 72,000. In May, had a hemoglobin of 10.7 and on admission 2 days ago, his hemoglobin was 10.0. His sodium was 134, potassium 3.4, chloride 103, CO2 of 22, BUN 28, creatinine 1.3. LFTs from yesterday showed a total bilirubin of 5.5, AST 55, ALT 50, albumin 2.9. He did have a CAT scan of the abdomen and pelvis 2 days ago on admission, which revealed a trace right pleural effusion and cardiomegaly. There was a small pericardial effusion. Liver appeared normal without any biliary disease nor masses. The GI tract was notable for some mild bowel wall thickening in the ascending colon, but this was of uncertain clinical significance. There was no sign of any bowel obstruction, abscess, nor any definitive colitis. IMPRESSION: In regard to the patient's presentation and abnormal CAT scan report, in which there were some very mild changes involving the ascending colon, I suspect that he does not have actual colitis given no reported significant diarrhea and the clinical history. I suspect the CAT scan findings are in relation to either underdistention or possibly some component of bowel wall edema in relation to the right-sided heart failure. I do not think this represents inflammatory bowel disease nor infectious colitis. In this regard, I would recommend stopping his antibiotics, checking stool specimens for any type of pathogens such as culture and sensitivity and Clostridium difficile. I would allow him to eat as tolerated. I do not think a colonoscopy is required at this time. I would continue to observe him. Certainly, if anything changes for the worse with increasing diarrhea or other obvious signs of colitis, we could then always proceed with a colonoscopy at that time if need be. However, at this point, I do not think that is necessary. In regard to the passive right-sided heart failure, this seems to be stable based on his clinical appearance. He clearly does have some ascites and ongoing jaundice, but he has had this in the past as well. I do not think any other workup is required for that. MD GAMALIEL Luna/DEYANIRA / [phone]
[2020-09-14] VITALS (13 sets, daily range): BP systolic 106–130; BP diastolic 65–84; PULSE 65–103; RESP 16–20; TEMP 35.8–37.1; O2SAT 98–100; BMI 21.7
[2020-09-14] MEDS: metroNIDAZOLE/NS 500 MG/100 ML PIGGYBACK 100 MG IV (05:20)
[2020-09-14] MEDS: cefTRIAXone sodium 1 GM in 0.9 % Sodium Chloride 50 ML IV (05:20)
[2020-09-14 06:54] LABS: Basophils Percent Auto 0.6 % (0-2); Hemoglobin 9.8 g/dl (14.0-18.0); Imm Gran Abs Auto 0.01 X10*3/uL (0.00-0.03); Imm Gran Pct Auto 0.2 % (0.0-0.4); MANUAL DIFF FLAG SCAN; SCAN SMEAR FLAG 1
[2020-09-14 06:56] LABS: Eosinophils Absolute Auto 0.3 X10*3/uL (0.0-0.4); Eosinophils Percent Auto 6.6 % (0-4); Hematocrit 29.8 % (42-52); Lymphocytes Absolute Auto 0.9 X10*3/uL (1.2-4.9); Lymphocytes Percent Auto 17.5 % (20-40); Mean Corpuscular HGB Conc 32.9 g/dl (31.0-36.0); Mean Corpuscular Hemoglobin 20.4 pg (27.0-33.0); Monocytes Absolute Auto 0.5 X10*3/uL (0.1-1.2); Monocytes Percent Auto 9.7 % (2-11); Neutrophils Absolute Auto 3.3 X10*3/uL (2.0-8.3); Neutrophils Percent Auto 65.4 % (45-73); Red Cell Distribution Width 18.2 % (11.0-16.0)
[2020-09-14 06:57] LABS: INTERNATIONAL NORM RATIO 2.6 (0.9-1.1); Prothrombin Time 30.9 SEC (10.8-13.0)
[2020-09-14 07:12] LABS: Anion Gap 14 (12-20); Blood Urea Nitrogen 23 mg/dL (9-16); Calcium 7.9 mg/dL (8.4-10.2); Carbon Dioxide 23 mmol/L (22-29); Chloride 101 mmol/L (96-108); Creatinine Clr Calc Pharmacy 57.8; Estimated Glomerular Filt Rate 60; Glucose Random 93 mg/dL (60-115); Potassium 3.8 mmol/l (3.3-5.1); Sodium 134 mmol/L (135-145)
[2020-09-14 07:24] LABS: Mean Corpuscular Volume 62.1 fL (80-98)
[2020-09-14 07:25] LABS: NRBC Pct Auto 1.2 /100WBC (0.0-0.2); PLT ABN DIST 1
[2020-09-14] MEDS: Digoxin 0.125 MG TABLET PO (08:34)
[2020-09-14] MEDS: Metoprolol Tartrate 25 MG TABLET PO ×2 (08:35→21:09)
[2020-09-14] MEDS: 0.9 % Sodium Chloride Flush 3 ML SYRINGE IVFLUSH ×3 (08:35→21:10)
[2020-09-14] MEDS: risperiDONE 2 MG TABLET PO ×2 (08:35→21:09)
[2020-09-14] MEDS: Midodrine HCl 5 MG TABLET PO ×3 (08:35→21:09)
[2020-09-14] MEDS: Omeprazole 40 MG CAPSULE.DR PO (08:35)
[2020-09-14 08:57] LABS: Platelet Count 73 X10*3/uL (160-400); SLIDE REVIEW VERIFIED
[2020-09-14] MEDS: Furosemide 20 MG/2 ML VIAL IVPUSH ×2 (10:32→16:39)
--- NOTE | 2020-09-14 13:46 | P.PNIM_ITS ---
Subjective Subjective Date of Service: 09/13/20 Interval History: C/o leg swelling + abd distension. Denies fever Denies chest pain Denies dyspnea or edema Denies hematochezia, no further diarrhea Physical Exam Vital Signs: Vital Signs: Vital Signs Temp Pulse Resp BP Pulse Ox 09/14/20 11:22 98.2 F 65 20 129/69 98 09/14/20 08:35 103 H 130/84 09/14/20 08:34 103 H 09/14/20 07:49 98.7 F 103 H 20 130/84 100 09/14/20 03:36 98.5 F 87 18 110/77 100 09/14/20 00:50 123/82 09/14/20 00:00 98.3 F 84 18 100 09/13/20 21:20 82 120/86 09/13/20 19:40 96.7 F L 82 18 120/86 100 09/13/20 16:00 97.2 F 102 H 18 110/80 97 09/13/20 15:55 111 H 100/80 Body Mass Index 21.7 Const: General: no acute distress Resp: Effort & Inspection: normal respiratory effort Auscultation: clear to auscultation bilaterally Cardio: Rate: regular rate Rhythm: regular rhythm GI: Inspection: Yes normal to inspection Palpation (GI): minimally tender epigastrium with mild distension Extrem: 1+ pitting edema bilateral lower extremities, symmetric Psych: limited insight Objective Data Current Medications Generic Name Dose Route Start Last Admin Trade Name Freq PRN Reason Stop Dose Admin Acetaminophen 650 mg 09/12/20 05:30 Acetaminophen 325 Mg Tablet PO Q6H PRN Pain, Mild (Pain Scale 1-3) Digoxin 0.125 mg 09/12/20 09:00 09/14/20 08:34 Digoxin 0.125 Mg Tablet PO 0.125 mg DAILY EUSEBIO Administration Docusate Sodium 100 mg 09/12/20 05:30 09/13/20 06:54 Docusate Sodium 100 Mg Capsule PO 100 mg DAILY PRN Administration Constipation Furosemide 20 mg 09/14/20 10:25 09/14/20 10:32 Furosemide 20 Mg/2 Ml Vial IVPUSH 20 mg BID@0900,1800 [facility] Administration Protocol Metoprolol Tartrate 25 mg 09/12/20 09:00 09/14/20 08:35 Metoprolol Tartrate 25 Mg Tablet PO 25 mg BID EUSEBIO Administration Protocol Midodrine 5 mg 09/12/20 09:00 09/14/20 08:35 Midodrine Hcl 5 Mg Tablet PO 5 mg TID EUSEBIO Administration Omeprazole 40 mg 09/12/20 09:00 09/14/20 08:35 Omeprazole 40 Mg Capsule.Dr PO 40 mg DAILY EUSEBIO Administration Ondansetron HCl 4 mg 09/12/20 05:30 Ondansetron Hcl 4 Mg/2 Ml Vial IVPUSH Q8H PRN Nausea and Vomiting Risperidone 2 mg 09/12/20 09:00 09/14/20 08:35 Risperidone 2 Mg Tablet PO 2 mg BID EUSEBIO Administration Sodium Chloride 3 ml 09/12/20 08:00 09/14/20 08:35 0.9 % Sodium Chloride Flush 3 Ml Syringe IVFLUSH 3 ml QSHIFT [facility] Administration Warfarin Sodium 7.5 mg 09/12/20 16:00 09/13/20 15:55 Warfarin Sodium 7.5 Mg Tablet PO 7.5 mg DAILY@1600 [facility] Administration Labs CBC & Chem 7: 09/14/20 05:51 09/14/20 05:51 Microbiology Microbiology Results: Microbiology 09/12/20 09:55 Stool Stool Culture - Preliminary No stool pathogens to date. 09/11/20 22:05 Urine clean catch - Clean Catch Midstream Urine Culture - Final No growth. Assessment and Plan (1) CHF (congestive heart failure): Status: Acute Assessment and Plan: hospital d#4 60yo M with schizophrenia, HFpEF, mitral stenosis, pHTN, AF p/w abd pain admitted for suspected colitis, RUDY # acute/chornic HFpEF - will give IV furosemide, trend I/O + BNP + BMP + Mg - continue metoprolol # colitis, not - per GI unlikely; will observe off of ABX [got 2d of ceftriaxone + azithr omycin] - negative stool WBCs/C diff/Cx # ascites - diureses as above. likely congestive hepatopathy. therapeutic paracentesis if worsens # RUDY - prerenal; resolved # AF - continue metoprolol + digoxin - continue warfarin, INR therapeutic today
[2020-09-14] MEDS: Warfarin Sodium 7.5 MG TABLET PO (16:39)
[2020-09-14] MEDS: Docusate Sodium 100 MG CAPSULE PO (16:39)
--- NOTE | 2020-09-14 18:33 | PC.NURSE ---
Patient with ascites, distended firm abdomen. c/o feeling tight in my stomach and legs . notified this am, at bedside for assessment. lungs diminished throughout, pitting edema +1 noted to lower arms/hands & legs. 20mg iv lasix started bid for today. pt putting out what seems to be a good amount of urine, however unable to measure d/t non-compliance with urinal. urinal provided at bedside as well as in the bathroom with frequent reminding.
[2020-09-15] VITALS (10 sets, daily range): BP systolic 108–135; BP diastolic 66–86; PULSE 59–126; RESP 16–25; TEMP 35.9–36.7; O2SAT 98–100; BMI 21.5
[2020-09-15 06:30] LABS: Basophils Percent Auto 0.4 % (0-2); Imm Gran Abs Auto 0.01 X10*3/uL (0.00-0.03); Imm Gran Pct Auto 0.2 % (0.0-0.4); MANUAL DIFF FLAG SCAN; Monocytes Absolute Auto 0.5 X10*3/uL (0.1-1.2); SCAN SMEAR FLAG 1
[2020-09-15 06:32] LABS: Eosinophils Absolute Auto 0.4 X10*3/uL (0.0-0.4); Eosinophils Percent Auto 7.6 % (0-4); Hemoglobin 9.4 g/dl (14.0-18.0); Lymphocytes Absolute Auto 0.9 X10*3/uL (1.2-4.9); Lymphocytes Percent Auto 16.6 % (20-40); Mean Corpuscular HGB Conc 32.4 g/dl (31.0-36.0); Mean Corpuscular Hemoglobin 20.1 pg (27.0-33.0); Monocytes Percent Auto 8.5 % (2-11); NRBC Pct Auto 0.9 /100WBC (0.0-0.2); Neutrophils Absolute Auto 3.6 X10*3/uL (2.0-8.3); Neutrophils Percent Auto 66.7 % (45-73); Red Blood Count 4.68 X10*6/uL (4.60-5.80); Red Cell Distribution Width 18.2 % (11.0-16.0); White Blood Count 5.4 X10*3/uL (4.8-10.8)
[2020-09-15 06:40] LABS: INTERNATIONAL NORM RATIO 4.4 (0.9-1.1); Prothrombin Time 52.5 SEC (10.8-13.0)
[2020-09-15 06:43] LABS: C Reactive Protein 1.44 mg/dL (< or = 0.50); Magnesium 1.6 mg/dL (1.6-2.6)
[2020-09-15 06:47] LABS: B Type Natriuretic Peptide 1537 pg/mL (<100)
[2020-09-15 07:10] LABS: PLT ABN DIST 1; Platelet Count 68 X10*3/uL (160-400)
[2020-09-15] MEDS: risperiDONE 2 MG TABLET PO ×2 (07:39→20:13)
[2020-09-15] MEDS: Metoprolol Tartrate 25 MG TABLET PO ×2 (07:39→20:13)
[2020-09-15] MEDS: Omeprazole 40 MG CAPSULE.DR PO (07:40)
[2020-09-15] MEDS: Digoxin 0.125 MG TABLET PO (07:40)
[2020-09-15] MEDS: Midodrine HCl 5 MG TABLET PO ×3 (07:40→20:13)
[2020-09-15] MEDS: 0.9 % Sodium Chloride Flush 3 ML SYRINGE IVFLUSH ×2 (07:41→15:57)
[2020-09-15] MEDS: Furosemide 20 MG/2 ML VIAL IVPUSH ×2 (07:42→17:14)
[2020-09-15 07:48] LABS: SLIDE REVIEW VERIFIED
[2020-09-15 09:29] LABS: Anion Gap 14 (12-20); Blood Urea Nitrogen 20 mg/dL (9-16); Carbon Dioxide 24 mmol/L (22-29); Chloride 99 mmol/L (96-108); Creatinine Clr Calc Pharmacy 58.3; Estimated Glomerular Filt Rate > 60; Glucose Random 95 mg/dL (60-115); Potassium 3.3 mmol/l (3.3-5.1); Sodium 134 mmol/L (135-145)
--- NOTE | 2020-09-15 10:17 | HO.PM.IMPN ---
Subjective Subjective Date of Service: 09/15/20 Interval History: Abd + leg swelling improved. Denies fever Denies chest pain Denies dyspnea or edema Denies hematochezia, no further diarrhea. Keeps asking for laxatives though having multiple BMs/d Physical Exam Vital Signs: Vital Signs: Vital Signs Temp Pulse Resp BP Pulse Ox 09/15/20 08:00 98.0 F 126 H 16 108/86 98 09/15/20 07:40 125 H 108/86 09/15/20 07:39 125 H 108/86 09/15/20 03:55 96.7 F L 100 18 124/82 09/14/20 23:49 96.9 F 82 16 106/73 100 09/14/20 21:09 94 110/65 09/14/20 20:00 96.5 F L 94 18 110/65 100 09/14/20 19:19 96.5 F L 94 18 110/65 100 09/14/20 16:39 86 125/66 09/14/20 15:53 97.6 F 86 20 125/66 99 09/14/20 11:22 98.2 F 65 20 129/69 98 Body Mass Index 21.5 Const: General: no acute distress Resp: Effort & Inspection: normal respiratory effort Auscultation: clear to auscultation bilaterally Cardio: Rate: regular rate Rhythm: regular rhythm GI: Inspection: Yes normal to inspection Palpation (GI): soft, non-tender Extrem: trace edema bilateral lower extremities, symmetric Psych: limited insight Objective Data Current Medications Generic Name Dose Route Start Last Admin Trade Name Freq PRN Reason Stop Dose Admin Acetaminophen 650 mg 09/12/20 05:30 Acetaminophen 325 Mg Tablet PO Q6H PRN Pain, Mild (Pain Scale 1-3) Digoxin 0.125 mg 09/12/20 09:00 09/15/20 07:40 Digoxin 0.125 Mg Tablet PO 0.125 mg DAILY EUSEBIO Administration Docusate Sodium 100 mg 09/12/20 05:30 09/14/20 16:39 Docusate Sodium 100 Mg Capsule PO 100 mg DAILY PRN Administration Constipation Furosemide 20 mg 09/14/20 10:25 09/15/20 07:42 Furosemide 20 Mg/2 Ml Vial IVPUSH 20 mg BID@0900,1800 EUSEBIO Administration Protocol Metoprolol Tartrate 25 mg 09/12/20 09:00 09/15/20 07:39 Metoprolol Tartrate 25 Mg Tablet PO 25 mg BID EUSEBIO Administration Protocol Midodrine 5 mg 09/12/20 09:00 09/15/20 07:40 Midodrine Hcl 5 Mg Tablet PO 5 mg TID EUSEBIO Administration Omeprazole 40 mg 09/12/20 09:00 09/15/20 07:40 Omeprazole 40 Mg Capsule.Dr PO 40 mg DAILY EUSEBIO Administration Ondansetron HCl 4 mg 09/12/20 05:30 Ondansetron Hcl 4 Mg/2 Ml Vial IVPUSH Q8H PRN Nausea and Vomiting Risperidone 2 mg 09/12/20 09:00 09/15/20 07:39 Risperidone 2 Mg Tablet PO 2 mg BID EUSEBIO Administration Sodium Chloride 3 ml 09/12/20 08:00 09/15/20 07:41 0.9 % Sodium Chloride Flush 3 Ml Syringe IVFLUSH 3 ml QSHIFT EUSEBIO Administration Warfarin Sodium 7.5 mg 09/12/20 16:00 09/14/20 16:39 Warfarin Sodium 7.5 Mg Tablet PO 7.5 mg DAILY@1600 EUSEBIO Administration Labs CBC & Chem 7: 09/15/20 05:47 09/15/20 05:47 Microbiology Microbiology Results: Microbiology 09/12/20 09:55 Stool Stool Culture - Final 09/11/20 22:05 Urine clean catch - Clean Catch Midstream Urine Culture - Final No growth. Assessment and Plan (1) CHF (congestive heart failure): Status: Acute Assessment and Plan: hospital d#4 60yo M with schizophrenia, HFpEF, mitral stenosis, pHTN, AF p/w abd pain admitted for suspected colitis, RUDY # acute/chronic HFpEF - continue IV furosemide, switch to PO furosemide tomorrow, trend I/O + BNP + BMP + Mg - continue metoprolol # colitis, not - negative stool WBCs/C diff/Cx, ceftriaxone + azithromycin d/c'ed after 2d # ascites - due to congestive hepatopathy. continue diuresis. no paracentesis indicated # RUDY - prerenal; resolved # AF - continue metoprolol + digoxin - hold warfarin for INR 4.4 today, likely antibiotic effect, recheck INR tomorrow # chronic anemia - Hb stable # thrombocytopenia - recheck platelets in am, consider heme consult if drops further
[2020-09-15 10:20] LABS: Creatinine Urine 55.42 mg/dL
[2020-09-15] MEDS: Docusate Sodium 100 MG CAPSULE PO (20:14)
[2020-09-16] VITALS (7 sets, daily range): BP systolic 112–141; BP diastolic 76–90; PULSE 75–108; RESP 16–20; TEMP 35.9–36.7; O2SAT 97–100
[2020-09-16] MEDS: 0.9 % Sodium Chloride Flush 3 ML SYRINGE IVFLUSH ×4 (00:02→23:57)
[2020-09-16 07:17] LABS: Hemoglobin 9.5 g/dl (14.0-18.0); Imm Gran Abs Auto 0.01 X10*3/uL (0.00-0.03); Imm Gran Pct Auto 0.2 % (0.0-0.4); MANUAL DIFF FLAG SCAN; Mean Corpuscular Hemoglobin 20.1 pg (27.0-33.0); SCAN SMEAR FLAG 1
[2020-09-16 07:19] LABS: Basophils Percent Auto 0.6 % (0-2); Eosinophils Absolute Auto 0.6 X10*3/uL (0.0-0.4); Eosinophils Percent Auto 10.6 % (0-4); Lymphocytes Absolute Auto 0.9 X10*3/uL (1.2-4.9); Lymphocytes Percent Auto 17.2 % (20-40); Mean Corpuscular HGB Conc 32.8 g/dl (31.0-36.0); Monocytes Absolute Auto 0.5 X10*3/uL (0.1-1.2); Monocytes Percent Auto 9.8 % (2-11); NRBC Pct Auto 0.8 /100WBC (0.0-0.2); Neutrophils Absolute Auto 3.3 X10*3/uL (2.0-8.3); Neutrophils Percent Auto 61.6 % (45-73); Red Blood Count 4.72 X10*6/uL (4.60-5.80); Red Cell Distribution Width 18.1 % (11.0-16.0); White Blood Count 5.3 X10*3/uL (4.8-10.8)
[2020-09-16 07:21] LABS: Mean Corpuscular Volume 61.4 fL (80-98); PLT ABN DIST 1; Platelet Count 74 X10*3/uL (160-400)
[2020-09-16 07:24] LABS: INTERNATIONAL NORM RATIO 3.5 (0.9-1.1); Prothrombin Time 42.6 SEC (10.8-13.0)
[2020-09-16 07:45] LABS: B Type Natriuretic Peptide 1638 pg/mL (<100)
[2020-09-16 07:54] LABS: SLIDE REVIEW VERIFIED
[2020-09-16 07:54] LABS: Anion Gap 13 (12-20); Blood Urea Nitrogen 17 mg/dL (9-16); Calcium 8.1 mg/dL (8.4-10.2); Carbon Dioxide 27 mmol/L (22-29); Chloride 98 mmol/L (96-108); Creatinine Clr Calc Pharmacy 65.3; Estimated Glomerular Filt Rate > 60; Glucose Random 60 mg/dL (60-115); Magnesium 1.3 mg/dL (1.6-2.6); Sodium 135 mmol/L (135-145)
[2020-09-16] MEDS: Omeprazole 40 MG CAPSULE.DR PO (08:47)
[2020-09-16] MEDS: Digoxin 0.125 MG TABLET PO (08:47)
[2020-09-16] MEDS: risperiDONE 2 MG TABLET PO ×2 (08:47→21:31)
[2020-09-16] MEDS: Midodrine HCl 5 MG TABLET PO ×3 (08:47→21:32)
[2020-09-16] MEDS: Metoprolol Tartrate 25 MG TABLET PO ×2 (08:48→21:31)
[2020-09-16] MEDS: Potassium Chloride ER 20 MEQ TAB.ER.PRT 40 MEQ PO (08:48)
[2020-09-16] MEDS: Furosemide 20 MG/2 ML VIAL IVPUSH (08:48)
[2020-09-16] MEDS: Acetaminophen 325 MG TABLET 650 MG PO (08:52)
[2020-09-16] MEDS: Magnesium Sulfate/H2O 2 GM/50 ML PIGGYBACK IV ×2 (10:21→12:02)
--- NOTE | 2020-09-16 11:02 | MHC.CM.PN ---
Per ROUNDS discussion Patient is likely to be ready for dc tomorrow and will need Heart Failure Teaching. PCP is listed as Dr. Peggy Garcia. Patient is still receiving IV Dieresis. CM will follow.
--- NOTE | 2020-09-16 12:59 | HO.PM.IMPN ---
Subjective Subjective Date of Service: 09/16/20 Interval History: Abd + leg swelling continues to improve. Denies fever Denies chest pain Denies dyspnea Physical Exam Vital Signs: Vital Signs: Vital Signs Temp Pulse Resp BP Pulse Ox 09/16/20 08:47 98 09/16/20 07:50 97.0 F 91 20 120/81 100 09/16/20 04:00 96.6 F L 80 16 119/78 99 09/15/20 23:28 97.6 F 92 16 116/85 100 09/15/20 20:13 59 117/80 09/15/20 19:48 96.8 F 59 16 117/80 100 09/15/20 16:00 97.0 F 114 H 25 H 100 09/15/20 15:54 112 H 108/79 Body Mass Index 21.5 Const: General: no acute distress Resp: Effort & Inspection: normal respiratory effort Auscultation: clear to auscultation bilaterally Cardio: Rate: regular rate Rhythm: regular rhythm GI: Inspection: Yes normal to inspection Palpation (GI): soft, non-tender, mildly distended Extrem: trace edema bilateral lower extremities, symmetric Psych: limited insight Objective Data Current Medications Generic Name Dose Route Start Last Admin Trade Name Freq PRN Reason Stop Dose Admin Acetaminophen 650 mg 09/12/20 05:30 09/16/20 08:52 Acetaminophen 325 Mg Tablet PO 650 mg Q6H PRN Administration Pain, Mild (Pain Scale 1-3) Digoxin 0.125 mg 09/12/20 09:00 09/16/20 08:47 Digoxin 0.125 Mg Tablet PO 0.125 mg DAILY EUSEBIO Administration Docusate Sodium 100 mg 09/12/20 05:30 09/15/20 20:14 Docusate Sodium 100 Mg Capsule PO 100 mg DAILY PRN Administration Constipation Furosemide 20 mg 09/14/20 10:25 09/16/20 08:48 Furosemide 20 Mg/2 Ml Vial IVPUSH 20 mg BID@0900,1800 EUSEBIO Administration Protocol Magnesium Sulfate 2 gm in 50 mls @ 25 mls/hr 09/16/20 10:15 09/16/20 12:02 IV 09/16/20 14:14 25 mls/hr Q2H EUSEBIO Administration Metoprolol Tartrate 25 mg 09/12/20 09:00 09/16/20 08:48 Metoprolol Tartrate 25 Mg Tablet PO 25 mg BID [facility] Administration Protocol Midodrine 5 mg 09/12/20 09:00 09/16/20 08:47 Midodrine Hcl 5 Mg Tablet PO 5 mg TID EUSEBIO Administration Omeprazole 40 mg 09/12/20 09:00 09/16/20 08:47 Omeprazole 40 Mg Capsule. PO 40 mg DAILY EUSEBIO Administration Ondansetron HCl 4 mg 09/12/20 05:30 Ondansetron Hcl 4 Mg/2 Ml Vial IVPUSH Q8H PRN Nausea and Vomiting Risperidone 2 mg 09/12/20 09:00 09/16/20 08:47 Risperidone 2 Mg Tablet PO 2 mg BID EUSEBIO Administration Sodium Chloride 3 ml 09/12/20 08:00 09/16/20 08:48 0.9 % Sodium Chloride Flush 3 Ml Syringe IVFLUSH 3 ml QSHIFT [facility] Administration Warfarin Sodium 7.5 mg 09/12/20 16:00 09/14/20 16:39 Warfarin Sodium 7.5 Mg Tablet PO 7.5 mg DAILY@1600 [facility] Administration Labs CBC & Chem 7: 09/16/20 05:27 09/16/20 05:26 Microbiology Microbiology Results: Microbiology 09/12/20 09:55 Stool Stool Culture - Final 09/11/20 22:05 Urine clean catch - Clean Catch Midstream Urine Culture - Final No growth. Laboratory Results - last 24 hr 09/16/20 09/16/20 09/16/20 05:26 05:27 05:27 WBC RBC Hgb Hct MCV MCH MCHC RDW Plt Count MPV Immature Gran % (Auto) Neut % (Auto) Lymph % (Auto) Travis % (Auto) Eos % (Auto) Baso % (Auto) Lymph # (Auto) Travis # (Auto) Eos # (Auto) Baso # (Auto) Abs Immat Gran (auto) Absolute Neuts (auto) Absolute Nucleated RBC Nucleated RBC % (auto) Smear Tech's Comments PT 42.6 H INR 3.5 H Sodium 135 Potassium 3.0 L Chloride 98 Carbon Dioxide 27 Anion Gap 13 BUN 17 H Creatinine 1.09 Estim Creat Clear Calc 65.3 Estimated GFR > 60 Random Glucose 60 D Calcium 8.1 L Magnesium 1.3 L* B-Natriuretic Peptide 1638 H 09/16/20 05:27 WBC 5.3 RBC 4.72 Hgb 9.5 L Hct 29.0 L MCV 61.4 L MCH 20.1 L MCHC 32.8 RDW 18.1 H Plt Count 74 L MPV Not Reportable Immature Gran % (Auto) 0.2 Neut % (Auto) 61.6 Lymph % (Auto) 17.2 L Travis % (Auto) 9.8 Eos % (Auto) 10.6 H Baso % (Auto) 0.6 Lymph # (Auto) 0.9 L Travis # (Auto) 0.5 Eos # (Auto) 0.6 H Baso # (Auto) 0.0 Abs Immat Gran (auto) 0.01 Absolute Neuts (auto) 3.3 Absolute Nucleated RBC 0.040 H Nucleated RBC % (auto) 0.8 H Smear Tech's Comments VERIFIED PT INR Sodium Potassium Chloride Carbon Dioxide Anion Gap BUN Creatinine Estim Creat Clear Calc Estimated GFR Random Glucose Calcium Magnesium B-Natriuretic Peptide Assessment and Plan (1) CHF (congestive heart failure): Status: Acute Assessment and Plan: hospital d#5 60yo M with schizophrenia, HFpEF, mitral stenosis, pHTN, AF p/w abd pain admitted for suspected colitis but more likely ascites/volume overlioad RUDY, resolved # acute/chronic HFpEF - continue IV furosemide for 1 more day, switch to PO furosemide tomorrow - continue metoprolol # hypoK - replete, recheck in am # hypoMg - replete, recheck in am - continue IV furosemide, switch to PO furosemide tomorrow, trend I/O + BNP + BMP + Mg - continue metoprolol # colitis, not - negative stool WBCs/C diff/Cx, ceftriaxone + azithromycin d/c'ed after 2d # ascites - due to congestive hepatopathy. continue diuresis. no paracentesis indicated # RUDY - prerenal; resolved # AF - continue metoprolol + digoxin - hold warfarin for INR 3.5 today, likely antibiotic effect, recheck INR tomorrow # chronic anemia - Hb stable # thrombocytopenia - stable, recheck CBC in am
[2020-09-16] MEDS: Furosemide 20 MG/2 ML VIAL 40 MG IVPUSH (16:17)
[2020-09-16] MEDS: Docusate Sodium 100 MG CAPSULE PO (17:41)
[2020-09-17] VITALS (7 sets, daily range): BP systolic 96–126; BP diastolic 67–86; PULSE 79–109; RESP 18–20; TEMP 36.3–36.5; O2SAT 99–100; BMI 21.2
--- NOTE | 2020-09-17 04:45 | PC.NURSE ---
Alert and oriented x 2-3, forgetful at times. Denied chest pain or shortness of breath. Ambulates independently. Putting out adequate amount of urine. Controlled A-fib on tele. No acute issues noted overnight. Will continue care plan.
[2020-09-17 06:40] LABS: Hemoglobin 9.1 g/dl (14.0-18.0); Imm Gran Abs Auto 0.01 X10*3/uL (0.00-0.03); Imm Gran Pct Auto 0.2 % (0.0-0.4); MANUAL DIFF FLAG SCAN; SCAN SMEAR FLAG 1
[2020-09-17 06:43] LABS: Basophils Percent Auto 0.4 % (0-2); Eosinophils Absolute Auto 0.7 X10*3/uL (0.0-0.4); Eosinophils Percent Auto 13.3 % (0-4); Lymphocytes Absolute Auto 0.9 X10*3/uL (1.2-4.9); Lymphocytes Percent Auto 17.6 % (20-40); Mean Corpuscular HGB Conc 32.5 g/dl (31.0-36.0); Monocytes Absolute Auto 0.6 X10*3/uL (0.1-1.2); Monocytes Percent Auto 12.9 % (2-11); NRBC Pct Auto 0.8 /100WBC (0.0-0.2); Neutrophils Absolute Auto 2.7 X10*3/uL (2.0-8.3); Neutrophils Percent Auto 55.6 % (45-73); PLT CLUMP 1; Red Blood Count 4.55 X10*6/uL (4.60-5.80); Red Cell Distribution Width 18.4 % (11.0-16.0)
[2020-09-17 07:02] LABS: INTERNATIONAL NORM RATIO 2.7 (0.9-1.1); Prothrombin Time 32.7 SEC (10.8-13.0)
[2020-09-17 07:05] LABS: Anion Gap 13 (12-20); Blood Urea Nitrogen 18 mg/dL (9-16); Calcium 8.1 mg/dL (8.4-10.2); Carbon Dioxide 28 mmol/L (22-29); Chloride 99 mmol/L (96-108); Creatinine Clr Calc Pharmacy 66.5; Estimated Glomerular Filt Rate > 60; Glucose Random 76 mg/dL (60-115); Magnesium 1.9 mg/dL (1.6-2.6); Potassium 3.5 mmol/l (3.3-5.1); Sodium 136 mmol/L (135-145)
[2020-09-17 07:06] LABS: B Type Natriuretic Peptide 1423 pg/mL (<100)
[2020-09-17 07:20] LABS: Mean Corpuscular Volume 61.5 fL (80-98)
[2020-09-17 07:21] LABS: PLT ABN DIST 1
[2020-09-17 07:26] LABS: Platelet Count 71 X10*3/uL (160-400); SLIDE REVIEW VERIFIED
[2020-09-17] MEDS: Metoprolol Tartrate 25 MG TABLET PO ×2 (08:29→20:20)
[2020-09-17] MEDS: Midodrine HCl 5 MG TABLET PO ×3 (08:29→20:20)
[2020-09-17] MEDS: Furosemide 40 MG TABLET PO (08:29)
[2020-09-17] MEDS: Digoxin 0.125 MG TABLET PO (08:29)
[2020-09-17] MEDS: Omeprazole 40 MG CAPSULE.DR PO (08:29)
--- NOTE | 2020-09-17 08:29 | P.CDIC_ITS ---
CDI Concurrent Query Service Date: 09/17/20 Documentation Clarification: Please clarify if you are treating a proba ble/suspected/likely or confirmed: Consistency and clarity of documenation: Urinary tract infection Please specify if known PLEASE DO NOT DELETE/MODIFY EXISTING CONTENT Additional information is needed in order to code to the highest accuracy and appropriate Severity of Illness (SOI). Please clarify the information noted below in your progress notes and discharge summary. Risk Factors/Clinical Indicators/Treatments CDS: Kymberly Whaley Contact Number: Please Review the information above and exercise your independent professional judgment in responding to the query. If you concur, pleas document in the PROGRESS NOTES and DISCHARGE SUMMARY. If you do not agree with the query, please document in the query above. THIS QUERY IS PART OF THE PERMANENT MEDICAL RECORD
[2020-09-17] MEDS: risperiDONE 2 MG TABLET PO ×2 (08:30→20:20)
[2020-09-17] MEDS: 0.9 % Sodium Chloride Flush 3 ML SYRINGE IVFLUSH ×2 (08:31→15:57)
--- NOTE | 2020-09-17 08:36 | P.CDIC_ITS ---
CDI Concurrent Query Service Date: 09/19/20 Documentation Clarification: Please clarify if you are treating a proba ble/suspected/likely or confirmed: Malnutrition, mild, moderate or severe Please specify if known or other Mild Protein-Calorie malnutrition Provider Response: Mild Protein-Calorie Malnutrition PLEASE DO NOT DELETE/MODIFY EXISTING CONTENT Additional information is needed in order to code to the highest accuracy and appropriate Severity of Illness (SOI). Please clarify the information noted below in your progress notes and discharge summary. Risk Factors/Clinical Indicators/Treatments Body mass index: 19.4 Albumin 3.2 Nutrition adding 240 Ensure BID, Na, 2 gm diet. CDS: Kymberly Whaley CCS, CDIS Contact Number: [phone] Please Review the information above and exercise your independent professional judgment in responding to the query. If you concur, pleas document in the PROGRESS NOTES and DISCHARGE SUMMARY. If you do not agree with the query, please document in the query above. THIS QUERY IS PART OF THE PERMANENT MEDICAL RECORD
--- NOTE | 2020-09-17 16:53 | P.PNIM_ITS ---
Subjective Subjective Date of Service: 09/17/20 Interval History: seen and examined denies cp or breathing troubles reports constipation and swelling doesnt feel ready for discharge home Review of Systems General - no fevers or chills Cardiovascular - no chest pain Respiratory - no shortness of breath or cough Abdominal- no abdominal pain, nausea, vomiting, diarrhea; constipation ext - significant edema bilateral LE Physical Exam Vital Signs: Vital Signs: Vital Signs Temp Pulse Resp BP Pulse Ox 09/17/20 16:33 97.5 F 90 20 126/75 100 09/17/20 12:00 97.7 F 90 20 119/86 100 09/17/20 07:23 97.6 F 109 H 20 125/80 100 09/17/20 03:45 97.3 F 85 18 108/76 100 09/17/20 00:00 97.6 F 79 19 100/68 99 09/16/20 21:31 102 H 09/16/20 19:11 97.6 F 108 H 18 141/87 H 100 Body Mass Index 21.2 General - no acute distress, appears comfortable Cardiovascular - s1s2, IRR; +JVD Lungs - dim, no significant rales appreciated Abdomen - soft, nontender, no rebound regarding Extremities - 2-3+ bilateral PE Neuro - awake and alert, no focal deficits psych - limited insight Objective Data Current Medications Generic Name Dose Route Start Last Admin Trade Name Eloy PRN Reason Stop Dose Admin Acetaminophen 650 mg 09/12/20 05:30 09/16/20 08:52 Acetaminophen 325 Mg Tablet PO 650 mg Q6H PRN Administration Pain, Mild (Pain Scale 1-3) Bumetanide 1 mg 09/17/20 18:00 Bumetanide 1 Mg/4 Ml Vial IVPUSH BID@0800,1800 [facility] Protocol Digoxin 0.125 mg 09/12/20 09:00 09/17/20 08:29 Digoxin 0.125 Mg Tablet PO 0.125 mg DAILY EUSEBIO Administration Docusate Sodium 100 mg 09/12/20 05:30 09/16/20 17:41 Docusate Sodium 100 Mg Capsule PO 100 mg DAILY PRN Administration Constipation Metoprolol Tartrate 25 mg 09/12/20 09:00 09/17/20 08:29 Metoprolol Tartrate 25 Mg Tablet PO 25 mg BID EUSEBIO Administration Protocol Midodrine 5 mg 09/12/20 09:00 09/17/20 14:21 Midodrine Hcl 5 Mg Tablet PO 5 mg TID EUSEBIO Administration Omeprazole 40 mg 09/12/20 09:00 09/17/20 08:29 Omeprazole 40 Mg Capsule.Dr PO 40 mg DAILY EUSEBIO Administration Ondansetron HCl 4 mg 09/12/20 05:30 Ondansetron Hcl 4 Mg/2 Ml Vial IVPUSH Q8H PRN Nausea and Vomiting Risperidone 2 mg 09/12/20 09:00 09/17/20 08:30 Risperidone 2 Mg Tablet PO 2 mg BID EUSEBIO Administration Sodium Chloride 3 ml 09/12/20 08:00 09/17/20 15:57 0.9 % Sodium Chloride Flush 3 Ml Syringe IVFLUSH 3 ml QSHIFT EUSEBIO Administration Warfarin Sodium 7.5 mg 09/12/20 16:00 09/14/20 16:39 Warfarin Sodium 7.5 Mg Tablet PO 7.5 mg DAILY@1600 EUSEBIO Administration Labs CBC & Chem 7: 09/17/20 05:36 09/17/20 05:36 Microbiology Microbiology Results: Microbiology 09/12/20 09:55 Stool Stool Culture - Final 09/11/20 22:05 Urine clean catch - Clean Catch Midstream Urine Culture - Final No growth. Assessment and Plan (1) CHF (congestive heart failure): Status: Acute Assessment and Plan: hospital d#5 60yo M with schizophrenia, HFpEF, mitral stenosis, pHTN, AF who p/w abodminal pain which was initially thought to be secondary to colitis, but likely 2/2 to ascites/fluid overload. 1 Acute on chronic HFpEF change to IV bumex 1mg BID, po bumex (previously on this) in a day or two. If no improvement, may need bumex drip / cardiology consult continue bb 2. HypoK/HypoMg resolved will give 40meq po K, anticipate dropping with continuation of iv diuresis 3. ? Colitis on CT scan negative stool studies 4. Ascites due to congestive hepatopathy. continue diuresis. no paracentesis indicated no abd pain today 5. URDY resolved with diuresis 6. AF continue metoprolol + digoxin restart coumadin 7. chronic anemia Hb stable 8. thrombocytopenia stable Full Code DVT pptx, Coumadin
[2020-09-17] MEDS: Lactulose 20 GM/30 ML SOLUTION PO (17:13)
[2020-09-17] MEDS: Bumetanide 1 MG/4 ML VIAL IVPUSH (17:13)
[2020-09-17] MEDS: Warfarin Sodium 7.5 MG TABLET PO (17:41)
[2020-09-18] MEDS: 0.9 % Sodium Chloride Flush 3 ML SYRINGE IVFLUSH ×2 (00:54→08:43)
[2020-09-18 03:19] VITALS: BP 109/68; PULSE 83; RESP 18; TEMP 36.6; O2SAT 100
[2020-09-18 06:00] VITALS: BMI 20.8
[2020-09-18 06:58] LABS: INTERNATIONAL NORM RATIO 2.3 (0.9-1.1); Prothrombin Time 27.9 SEC (10.8-13.0)
[2020-09-18 07:58] VITALS: BP 114/81; PULSE 85; RESP 18; TEMP 36.5; O2SAT 100
[2020-09-18 08:42] VITALS: BP 114/81; PULSE 85
[2020-09-18] MEDS: risperiDONE 2 MG TABLET PO (08:42)
[2020-09-18] MEDS: Metoprolol Tartrate 25 MG TABLET PO (08:42)
[2020-09-18] MEDS: Digoxin 0.125 MG TABLET PO (08:42)
[2020-09-18] MEDS: Midodrine HCl 5 MG TABLET PO (08:42)
[2020-09-18] MEDS: Bumetanide 1 MG/4 ML VIAL IVPUSH (08:43)
[2020-09-18] MEDS: Omeprazole 40 MG CAPSULE.DR PO (08:43)
[2020-09-18] MEDS: Docusate Sodium 100 MG/10 ML LIQUID PO (09:03)
[2020-09-18 11:23] VITALS: BP 114/81; PULSE 94; RESP 18; TEMP 36.8; O2SAT 99
--- NOTE | 2020-09-18 11:41 | MHC.CM.NN ---
PT DCD HOME WITHOUT [facility]CE[facility] ,PTS INSURANCE DOES NOT COVER VNA
--- NOTE | 2020-09-18 11:54 | MHC.CM.PN ---
[facility] WILL ARRANGE FOR PTS INR TO BE DRAWN ON WEDNESDAY
--- NOTE | 2020-09-19 18:21 | PM.DS ---
DS: Providers Provider Date of admission: 09/12/20 03:46 Primary care physician: Peggy Benites MD Consults: 09/12/20 15:42 Consult to Gastroenterology Routine Consulting Provider: [facility] Reason for consultation: colitis? ascitis? Attending physician on discharge: Anthony Mcbride Anticipated date of discharge: 09/18/20 DS: Diagnosis Discharge Diagnosis (1) CHF (congestive heart failure): Status: Acute DS: Summary Hospital Course Hospital Course: From the admission H&P: this is a 60-year-old male with history of CHF, atrial fib, who presents to the hospital with complaints of abdominal pain. although pt is awake, he is a poor historian. He is able to answer some questions but not all. He tells me that he has been having abdominal pain and constipated and takes Colace. He keeps repeating this statement. He is unable to follow my questions appropriately but is able to tell me that he has been having nausea vomiting and when asked reports that has not been eating and drinking well.pointed to the abdominal pain As PA all over his abdomen. pain for the past 3 weeks. Nausea and vomiting. Patient denied any fever or chills, no diarrhea or constipation. I am unable to obtain review of system due to patient's clinical Status. on arrival to the ED patient's temperature is 98.7?, pulse rate of 124 respiratory rate of 18 blood pressure 136/95 satting 99% on room air labs are significant for hemoglobin of 10 which is around his baseline, BUN of 31, creatinine of 1.42, sodium of 131, calcium 7.8, total bili of 5.5, direct bili of 3.8, AST of 55, ALT of 50, albumin of 2.9 CT abdomen showed moderate volume ascites, mild mural prominence of the ascending colon of uncertain clinical significance due to incomplete distention. In the proper clinical setting of colitis cannot be excluded. history is obtained from chart as patient not cooperating with history taking past medical history: Heart failure with with preserved ejection fraction AFib on warfarin, severe mitral stenosis, schizophrenia, history of TBI, history of congestive hepatic hepatopathy Hposital Course: patient's initial presentation was suspicious for urinary tract infection versus colitis. Upon further review and hospital course, these were found to be negative and subsequently antibiotics were discontinued. Rather his presenting abdominal pain was attributed to fluid overload and congestive a hepatopathy secondary to acute on chronic congestive heart failure. Was initiated on IV Lasix and this was subsequently changed to IV Bumex. Over the course of 6 days in the hospital, he had significant improvement in his swelling as well as resolution of his abdominal symptoms. He will be transitioned back to his Bumex 2 mg daily. He is to continue his Coumadin as usual. His INR can be checked Wednesday09/23/2020. Time Spent with Patient Time attestation: Total time spent providing and/or coordinating discharge services: Physical Exam Vital Signs: Vital Signs: Body Mass Index 20.8 General - no acute distress, appears comfortable Cardiovascular - s1s2, IRR; +JVD Lungs - clear, no rales Abdomen - soft, nontender, no rebound regarding Extremities - edema improved Neuro - awake and alert, no focal deficits psych - limited insight Discharge Plan Discharge Patient Disposition: Home, Self-Care Referrals: Peggy Benites MD [Primary Care Provider] - Discharge Medications: New bumetanide 2 mg tablet 2 mg PO DAILY Qty: 60 RF: 0 Continued warfarin 7.5 mg Tablet 7.5 mg PO DAILY RF: 0 midodrine 5 mg Tablet 5 mg PO TID RF: 0 omeprazole 40 mg Capsule,Delayed Release(Dr/Ec) 40 mg PO DAILY RF: 0 risperidone 2 mg Tablet 2 mg PO BID RF: 0 benztropine 2 mg Tablet 2 mg PO BID RF: 0 digoxin [Digitek] 125 mcg (0.125 mg) Tablet 125 mcg PO DAILY RF: 0 metoprolol tartrate 25 mg Tablet 25 mg PO BID RF: 0 Discharge Orders: Discharge Order (Routine); Ordered 09/18/20 Ordered By: Anthony Mcbride Diet: advance to your usual diet Activity on Discharge: As tolerated Discharge Date/Time: 09/18/20 13:41 Visit Report Forms: Patient Portal Discharge page Care Plan Goals: To stay out of the hospital Health Concerns: CHF Plan of Treatment: Take Bumex 2mg daily
== END 2020-09-18 13:41 | disposition home or self-care (01) | DRG 194 ==
LOC: HO.ED 09-12 03:25 → HO.IMC 09-12 04:16
PROVIDERS: Family Medicine; Physician Assistant; Physician Assistant Medical; Admitting Provider Internal Medicine; Emergency Provider Emergency Medicine; PCP Internal Medicine; Visit Provider Family Medicine
DX: I50.33 Acute on chronic diastolic (congestive) heart failure (principal); N17.9 Acute kidney failure, unspecified; D69.6 Thrombocytopenia, unspecified; E83.42 Hypomagnesemia; F20.9 Schizophrenia, unspecified; E44.1 Mild protein-calorie malnutrition; I48.91 Unspecified atrial fibrillation; R18.8 Other ascites; K76.1 Chronic passive congestion of liver; E87.6 Hypokalemia; D64.9 Anemia, unspecified; Z20.828 Contact with and (suspected) exposure to other viral communicable diseases; Z68.1 Body mass index [BMI] 19.9 or less, adult; Z79.01 Long term (current) use of anticoagulants; Z79.899 Other long term (current) drug therapy
CPT/HCPCS: 36415; 74176; 80048; 80053; 80076; 81001; 81003; 83690; 83735; 83880; 84300; 85025; 85060; 85610; 85730; 86140; 87045; 87046; 87086; 87324; 87449; 87635; 89055; 96360; 96361; 97161; 99284; 99285; J1650; J1940; J3475

== ENCOUNTER 2020-09-29 09:23 | Inpatient (IN) | payer MEDICAID, OTHER, SELFPAY ==
[2020-09-29] VITALS (11 sets, daily range): BP systolic 113–130; BP diastolic 65–93; PULSE 68–128; RESP 14–20; TEMP 36.2–37.1; O2SAT 93–99; BMI 23.8
--- NOTE | 2020-09-29 09:28 | XR_ITS ---
EXAMINATION: XR CHEST CLINICAL INFORMATION: Shortness of breath COMPARISON: 07/25/2020 TECHNIQUE: Frontal view of the chest was obtained. FINDINGS: Cardiomegaly. Pulmonary vascularity within normal limits. No pulmonary edema. Lungs are clear. No pleural effusion or pneumothorax. XR/XR chest 1V IMPRESSION: Stable cardiomegaly without evidence of decompensated heart failure.
--- NOTE | 2020-09-29 09:28 | ECG_ITS ---
Test Reason : ALLERGIC REACTION Blood Pressure : / mmHG Vent. Rate : 123 BPM Atrial Rate : 113 BPM P-R Int : 000 ms QRS Dur : 104 ms QT Int : 360 ms P-R-T Axes : 000 118 -31 degrees QTc Int : 515 ms Atrial fibrillation with rapid ventricular response Incomplete right bundle branch block Right axis deviation Nonspecific T wave abnormality Abnormal QRS-T angle, consider primary T wave abnormality Abnormal ECG When compared with ECG of 25-JUL-2020 13:11, Nonspecific T wave abnormality now evident in Lateral leads Heart rate has increased Referred By: Sada Garza Electronically Signed By:BRIONNA SHIN MD
--- NOTE | 2020-09-29 09:41 | ED.ALLEREA ---
HPI - Allergic Reaction General Chief complaint: Allergic Reaction Stated complaint: allergic reaction Time Seen by Provider: 09/29/20 09:26 Source: patient Mode of arrival: EMS Limitations: no limitations History of Present Illness HPI narrative: this is a 60-year-old male with history of right-sided heart failure, schizophrenia, rheumatic heart disease, hepatic encephalopathy, atrial fibrillation, congestive heart failure. Came to the emergency department by EMS for allergic reaction to unknown offending agent patient had swelling of the tongue swelling of the face, patient initially reportedly by EMS was in tripod position, hypotensive, patient was given by EMS Solu-Medrol 125 mg, and Pepcid, and Benadryl 50 mg IV, and I a.m. 0.3 epinephrine and patient was transported to the emergency department, patient initially with swollen face / labs/throat /minor wheezing /minor stridor. patient was monitored for few minutes showed progressively improving. MD complaint: allergic reaction Onset (ago): hour(s) (1) Exposure: unknown Symptoms: facial swelling, lip swelling, difficulty swallowing, difficulty breathing, tongue swelling, hoarseness and other ( Hypotension.) Severity: similar to previous episodes Treatment prior to arrival: benadryl, epinephrine, bronchodilator, oxygen and steroids Previous Allergic Reaction History: anaphylaxis Related Data Home Medications Medication Instructions Recorded Confirmed benztropine 2 mg PO BID 09/12/20 09/12/20 digoxin [Digitek] 125 mcg PO DAILY 09/12/20 09/12/20 metoprolol tartrate 25 mg PO BID 09/12/20 09/12/20 midodrine 5 mg PO TID 09/12/20 09/12/20 omeprazole 40 mg PO DAILY 09/12/20 09/12/20 risperidone 2 mg PO BID 09/12/20 09/12/20 warfarin 7.5 mg PO DAILY 09/12/20 09/12/20 Previous Rx's Medication Instructions Recorded bumetanide 2 mg PO DAILY #60 tab 09/18/20 Allergies Allergy/AdvReac Type Severity Reaction Status Date / Time Fish Containing Products Allergy Unknown UNKNOWN Verified 09/12/20 07:09 PEPPERS, JALAPENO Allergy Unknown UNKNOWN Uncoded 09/12/20 07:09 Review of Systems Review of Systems: All other systems are reviewed and are negative Constitutional: Reports as per HPI and Reports no additional constitutional complaints Eyes: Reports as per HPI and Reports no additional eye complaints Reports system reviewed and no additional complaints, except as documented Cardiovascular: Reports as per HPI and Reports no additional cardiovascular complaints Respiratory: Reports as per HPI and Reports no additional respiratory complaints Gastrointestinal: Reports as per HPI and Reports no additional gastrointestinal complaints Genitourinary: Reports no additional female genitourinary complaints Musculoskeletal: Reports no additional musculoskeletal complaints Skin/Breast: Reports system reviewed and no additional complaints, except as docu Psychiatric: Reports no additional psychiatric complaints Endocrine: Reports no additional endocrine complaints Hematologic/Lymphatic: Reports no additional hematologic/lymphatic complaints Allergic/Immunologic: Reports no additional allergic/immunologic complaints Reports system reviewed and no additional complaints, except as documented and Reports Abnormal speech present [facility] Past Medical History Medical History Afib CHF (congestive heart failure) Hepatic encephalopathy Quit consuming alcohol in remote past Schizophrenia Severe mitral valve stenosis Traumatic brain injury Social History Social History Household Members: Other Housing: House Alcohol intake: never Smoking Status: Former smoker Use of substances other than those prescribed or required for medical reasons: No Advance Directives: No Advance Directives Information Provided: No service: No Current occupational status: unemployed Physical Exam Vital Signs: Vital Signs: Vital Signs Temp Pulse Resp BP Pulse Ox 09/29/20 10:55 112 H 14 125/93 H 99 09/29/20 10:54 98.8 F 68 18 121/79 96 09/29/20 09:27 98 F 128 H 18 114/85 98 Body Mass Index 23.8 vital signs have been reviewed as normal and appeared to be correct. Blood pressure normal. Tachycardia. Respiration rate normal. Temperature normal. Oxygen saturation normal. Appearance: Alert. Oriented with mild acute respiratory distress. Head: Normal external exam. Normocephalic. Atraumatic. No Gerber signs noted. No raccoon eyes noted Eyes: PERRLA. EOMI. Conjunctiva and sclera normal. Eyelids normal. ENT: EAC normal. TM's Normal. Pharynx normal. Uvula midline. Moist mucous membranes. No trismus noted. No drooling noted. No muffled voice noted. Neck: Normal inspection. Neck supple. FROM. No adenopathy. Thyroid Normal. No meningeal signs. No neck mass noted. no stridor, positive gag reflex. CVS: Tachycardia, irregular regular heart rate.. Heart sound normal. No murmurs noted. Pulses normal throughout. Respiratory: Mild respiratory distress. Painless inspiration. Breath sounds normal. No wheezes/rales/rhonchi noted. Chest nontender. No accessory muscle usage noted or decreased air movement noted. Abdomen: Soft and nontender. Bowel sounds normal in all 4 quadrants. distention noted secondary to ascites. No organomegaly noted. No visible injury noted. Back: No CVA tenderness. Full range of motion noted. Skin: Skin warm and dry. Normal skin color. Normal skin turgor. No rashes/lesions/lacerations noted. significant penile edema. Extremities: lower extremity +2 edema as a part of diffuse anasarca. Extremities exhibit normal range of motion. Extremities nontender. : Severe swelling and edema to the penis and scrotum as a part of generalized edema. Neuro: Oriented . No motor deficit. No sensory deficit. Reflexes normal. Course Course Course Narrative: 60 years old male presented with anaphylaxis reaction of unknown of offending agent, received epinephrine /albuterol/ Benadryl by EMS, patient started to improve in the emergency department. Cardiac monitoring, upper airway monitoring, if patient remains stable in the emergency department likely he will need observation for 24 hours. MDM - Allergic Reaction MDM Narrative Medical decision making narrative: assessment and plan. 60-year-old male presented with unknown offending agent, patient initially was hypotensive, with difficulty breathing, with facial swelling. Patient was given at the scene by EMS Solu-Medrol / epinephrine /albuterol/ Benadryl IV. Patient has been monitored in the emergency department. Patient has been stable with continuous monitoring his vital sign and air way Diffuse anasarca likely due to diffuse liver problem. Hypokalemia will replace potassium. Lab Data Result diagrams: 09/29/20 10:58 09/29/20 10:58 Labs: Lab Results 09/29/20 09/29/20 09/29/20 Range/Units 10:58 10:58 10:58 WBC 4.7 L (4.8-10.8) X10*3/uL RBC 4.81 (4.60-5.80) X10*6/uL Hgb 9.7 L (14.0-18.0) g/dl Hct 29.8 L (42-52) % MCV 62.0 L (80-98) fL MCH 20.2 L (27.0-33.0) pg MCHC 32.6 (31.0-36.0) g/dl RDW 19.9 H (11.0-16.0) % Plt Count 135 L D (160-400) X10*3/uL MPV Not Reportable Immature Gran % (Auto) 0.2 (0.0-0.4) % Neut % (Auto) 64.2 (45-73) % Lymph % (Auto) 17.6 L (20-40) % [place] % (Auto) 9.3 (2-11) % Eos % (Auto) 8.1 H (0-4) % Baso % (Auto) 0.6 (0-2) % Lymph # (Auto) 0.8 L (1.2-4.9) X10*3/uL [place] # (Auto) 0.4 (0.1-1.2) X10*3/uL Eos # (Auto) 0.4 (0.0-0.4) X10*3/uL Baso # (Auto) 0.0 (0.0-0.2) X10*3/uL Abs Immat Gran (auto) 0.01 (0.00-0.03) X10*3/uL Absolute Neuts (auto) 3.0 (2.0-8.3) X10*3/uL Absolute Nucleated RBC 0.230 H (0.0-0.012) X10*3/uL Nucleated RBC % (auto) 4.9 H (0.0-0.2) /100WBC Smear Tech's Comments VERIFIED PT (10.8-13.0) SEC INR (0.9-1.1) Sodium 131 L (135-145) mmol/L Potassium 2.9 L (3.3-5.1) mmol/l Chloride 95 L (96-108) mmol/L Carbon Dioxide 21 L (22-29) mmol/L Anion Gap 18 (12-20) BUN 31 H D (9-16) mg/dL Creatinine 1.74 H (0.5-1.4) mg/dL Estim Creat Clear Calc 43.2 Estimated GFR 41 Random Glucose 122 H D (60-115) mg/dL Calcium 7.3 L (8.4-10.2) mg/dL B-Natriuretic Peptide 2674 H (<100) pg/mL Lipase 77 (8-78) U/L 09/29/20 Range/Units 11:29 WBC (4.8-10.8) X10*3/uL RBC (4.60-5.80) X10*6/uL Hgb (14.0-18.0) g/dl Hct (42-52) % MCV (80-98) fL MCH (27.0-33.0) pg MCHC (31.0-36.0) g/dl RDW (11.0-16.0) % Plt Count (160-400) X10*3/uL MPV Immature Gran % (Auto) (0.0-0.4) % Neut % (Auto) (45-73) % Lymph % (Auto) (20-40) % [place] % (Auto) (2-11) % Eos % (Auto) (0-4) % Baso % (Auto) (0-2) % Lymph # (Auto) (1.2-4.9) X10*3/uL [place] # (Auto) (0.1-1.2) X10*3/uL Eos # (Auto) (0.0-0.4) X10*3/uL Baso # (Auto) (0.0-0.2) X10*3/uL Abs Immat Gran (auto) (0.00-0.03) X10*3/uL Absolute Neuts (auto) (2.0-8.3) X10*3/uL Absolute Nucleated RBC (0.0-0.012) X10*3/uL Nucleated RBC % (auto) (0.0-0.2) /100WBC Smear Tech's Comments PT 31.1 H (10.8-13.0) SEC INR 2.6 H (0.9-1.1) Sodium (135-145) mmol/L Potassium (3.3-5.1) mmol/l Chloride (96-108) mmol/L Carbon Dioxide (22-29) mmol/L Anion Gap (12-20) BUN (9-16) mg/dL Creatinine (0.5-1.4) mg/dL Estim Creat Clear Calc Estimated GFR Random Glucose (60-115) mg/dL Calcium (8.4-10.2) mg/dL B-Natriuretic Peptide (<100) pg/mL Lipase (8-78) U/L ECG Data Interpretation: atrial fibrillation with rapid ventricular response at 123 beats per minute, right ventricular hypertrophy, diffuse nonspecific T-wave flattening on V5, V6, III, AVF. Critical Care Time Critical Care Time Total Critical Care Time: 60 Attestation: Patient needed critical care level monitoring with direct care at the bedside, Reviewing labs. Discharge Plan Discharge Clinical Impression: Anaphylaxis, Angioedema, Anasarca, Acute hypokalemia Patient Disposition: Admitted As Inpatient
[2020-09-29] MEDS: Famotidine/PF 20 MG/2 ML VIAL IVPUSH ×2 (09:43→20:53)
[2020-09-29] MEDS: Lidocaine HCl 2 % Urojet 10 ML JEL.PF.APP TOPICAL (10:10)
[2020-09-29 11:12] LABS: Imm Gran Abs Auto 0.01 X10*3/uL (0.00-0.03); Imm Gran Pct Auto 0.2 % (0.0-0.4); MANUAL DIFF FLAG SCAN; SCAN SMEAR FLAG 1
[2020-09-29 11:14] LABS: Basophils Percent Auto 0.6 % (0-2); Eosinophils Absolute Auto 0.4 X10*3/uL (0.0-0.4); Eosinophils Percent Auto 8.1 % (0-4); Hematocrit 29.8 % (42-52); Hemoglobin 9.7 g/dl (14.0-18.0); Lymphocytes Absolute Auto 0.8 X10*3/uL (1.2-4.9); Lymphocytes Percent Auto 17.6 % (20-40); Mean Corpuscular HGB Conc 32.6 g/dl (31.0-36.0); Mean Corpuscular Hemoglobin 20.2 pg (27.0-33.0); Monocytes Absolute Auto 0.4 X10*3/uL (0.1-1.2); Monocytes Percent Auto 9.3 % (2-11); Neutrophils Percent Auto 64.2 % (45-73); PLT CLUMP 1; Red Blood Count 4.81 X10*6/uL (4.60-5.80); Red Cell Distribution Width 19.9 % (11.0-16.0)
[2020-09-29 11:17] LABS: NRBC Pct Auto 4.9 /100WBC (0.0-0.2); PLT ABN DIST 1
[2020-09-29 11:34] LABS: Platelet Count 135 X10*3/uL (160-400); White Blood Count 4.7 X10*3/uL (4.8-10.8)
[2020-09-29 11:35] LABS: SLIDE REVIEW VERIFIED
[2020-09-29 11:38] LABS: Anion Gap 18 (12-20); Blood Urea Nitrogen 31 mg/dL (9-16); Calcium 7.3 mg/dL (8.4-10.2); Carbon Dioxide 21 mmol/L (22-29); Chloride 95 mmol/L (96-108); Creatinine Clr Calc Pharmacy 43.2; Estimated Glomerular Filt Rate 41; Glucose Random 122 mg/dL (60-115); Lipase 77 U/L (8-78); Potassium 2.9 mmol/l (3.3-5.1); Sodium 131 mmol/L (135-145)
[2020-09-29 11:40] LABS: B Type Natriuretic Peptide 2674 pg/mL (<100)
[2020-09-29 11:59] LABS: INTERNATIONAL NORM RATIO 2.6 (0.9-1.1); Prothrombin Time 31.1 SEC (10.8-13.0)
--- NOTE | 2020-09-29 12:04 | PC.NURSE ---
DR SALINAS AT THE BEDSIDE FOR ADMISSION EVALUATION
--- NOTE | 2020-09-29 12:55 | P.HPIM_ITS ---
History of Present Illness Date of Service: 09/29/20 Chief Complaint: shortness of breath this is a 60-year-old male with history of TBI, CHF, AFib on Coumadin, schizophrenia who was brought to the emergency department for shortness of breath. EMS indicated to the emergency department that he was found in the tripod position and noted to have swelling of his lips. he was given epinephrine due to concern for anaphylaxis /angioedema. in the emergency department he was given Solu-Medrol, famotidine, epinephrine, Benadryl. His breathing significantly improved and swelling reportedly also improved. chest x-ray was unremarkable. He was referred for admission. On exam he was noted to have significant anasarca, BNP returned elevated at 2674. creatinine was also noted to be elevated at 1.74. Given patient's underlying psychiatric history and history of TBI he is unable to provide any significant history. Review of Systems Review of Systems: Yes Unobtainable due to mental condition PMFSH Medical History Afib CHF (congestive heart failure) Hepatic encephalopathy Quit consuming alcohol in remote past Schizophrenia Severe mitral valve stenosis Traumatic brain injury Functional capacity: independent ambulation Pertinent family history: This was reviewed with the patient and he is unable to provide any significant medical history Social History Household Members: Other Housing: House Alcohol intake: never Smoking Status: Former smoker Use of substances other than those prescribed or required for medical reasons: No Advance Directives: No Advance Directives Information Provided: No service: No Current occupational status: unemployed Meds Allergies Allergy/AdvReac Type Severity Reaction Status Date / Time Fish Containing Products Allergy Unknown UNKNOWN Verified 09/12/20 07:09 PEPPERS, JALAPENO Allergy Unknown UNKNOWN Uncoded 09/12/20 07:09 Home Medications Medication Instructions Recorded Confirmed Type benztropine 2 mg PO BID 09/12/20 09/12/20 History digoxin [Digitek] 125 mcg PO DAILY 09/12/20 09/12/20 History metoprolol tartrate 25 mg PO BID 09/12/20 09/12/20 History midodrine 5 mg PO TID 09/12/20 09/12/20 History omeprazole 40 mg PO DAILY 09/12/20 09/12/20 History risperidone 2 mg PO BID 09/12/20 09/12/20 History warfarin 7.5 mg PO DAILY 09/12/20 09/12/20 History Physical Exam Vital Signs and Narrative: Vital Signs: Last Vital Signs Temp 98.8 F 09/29/20 10:54 Pulse 112 H 09/29/20 10:55 Resp 14 09/29/20 10:55 BP 125/93 H 09/29/20 10:55 Pulse Ox 99 09/29/20 10:55 Body Mass Index 23.8 Const: General: alert and awake; No acute distress Nutritional Appearance: well nourished HENMT: Head: Yes normocephalic and Yes atraumatic Eyes: Sclerae: sclerae normal Chest: Chest palpation & inspection: normal inspection of the chest Resp: Effort & Inspection: normal respiratory effort and no respiratory distress Auscultation: clear to auscultation bilaterally Cardio: Rate: tachycardic Rhythm: abnormal rhythm irregularly irregular GI: Palpation (GI): Soft to palpation and nontender : Other: Alegre present draining small amount of clear urine Skin: General skin exam: no rashes or lesions noted Neuro: Cranial nerves: Yes CN's II-XII intact bilaterally and Yes Bilaterally intact EOM present Extrem: Other: anasarca General: Yes normal to inspection Results Labs Labs: Laboratory Tests 09/29/20 09/29/20 09/29/20 10:58 10:58 10:58 WBC 4.7 L RBC 4.81 Hgb 9.7 L Hct 29.8 L MCV 62.0 L MCH 20.2 L MCHC 32.6 RDW 19.9 H Plt Count 135 L D MPV Not Reportable Immature Gran % (Auto) 0.2 Neut % (Auto) 64.2 Lymph % (Auto) 17.6 L [place] % (Auto) 9.3 Eos % (Auto) 8.1 H Baso % (Auto) 0.6 Lymph # (Auto) 0.8 L [place] # (Auto) 0.4 Eos # (Auto) 0.4 Baso # (Auto) 0.0 Abs Immat Gran (auto) 0.01 Absolute Neuts (auto) 3.0 Absolute Nucleated RBC 0.230 H Nucleated RBC % (auto) 4.9 H Smear Tech's Comments VERIFIED PT INR Sodium 131 L Potassium 2.9 L Chloride 95 L Carbon Dioxide 21 L Anion Gap 18 BUN 31 H D Creatinine 1.74 H Estim Creat Clear Calc 43.2 Estimated GFR 41 Random Glucose 122 H D Calcium 7.3 L B-Natriuretic Peptide 2674 H Lipase 77 09/29/20 11:29 WBC RBC Hgb Hct MCV MCH MCHC RDW Plt Count MPV Immature Gran % (Auto) Neut % (Auto) Lymph % (Auto) [place] % (Auto) Eos % (Auto) Baso % (Auto) Lymph # (Auto) [place] # (Auto) Eos # (Auto) Baso # (Auto) Abs Immat Gran (auto) Absolute Neuts (auto) Absolute Nucleated RBC Nucleated RBC % (auto) Smear Tech's Comments PT 31.1 H INR 2.6 H Sodium Potassium Chloride Carbon Dioxide Anion Gap BUN Creatinine Estim Creat Clear Calc Estimated GFR Random Glucose Calcium B-Natriuretic Peptide Lipase Assessment and Plan (1) Anasarca: Status: Acute this is a 60-year-old male with history of heart failure with preserved ejection fraction, atrial fibrillation on Coumadin, severe mitral stenosis, branden izophrenia, history of TBI who was brought by ambulance to the emergency department for shortness of breath initially thought to be secondary to anaphylaxis/ angioedema found to be in CHF acute on chronic heart failure with preserved ejection fraction recurrent admissions for the same IV Bumex cardiology consult Alegre to monitor fluid status, low-sodium diet ?repeat echo- will defer to cardiology angioedema unclear precipitant not requiring supplemental oxygen, managing secretions continue IV Pepcid, Benadryl atrial fibrillation with rapid ventricular response likely precipitated by epinephrine will give dose of IV metoprolol and resume home p.o. digoxin, metoprolol continue anticoagulation with Coumadin, INR therapeutic at 2.6 hypokalemia likely related to diuretics tele monitoring replace, follow potassium daily acute kidney injury ?cardiorenal/decreased perfusion continue diuresis monitor renal function closely consider Nephrology consult if no improvement abdominal pain likely related to fluid overload should improve with diuresis no evidence of infection at this time thrombocytopenia chronic follow CBC schizophrenia continue risperidone, benztropine low BP continue home dose of midodrine DVT prophylaxis- coumadin this case was discussed with Dr. Cantrell
[2020-09-29 12:58] LABS: SARS COV2 PCR INHOUSE NEGATIVE (Negative)
[2020-09-29] MEDS: Potassium Chloride/H20 10 MEQ/100 ML PIGGYBACK 100 MEQ IV ×2 (13:44→14:55)
[2020-09-29] MEDS: Potassium Chloride ER 20 MEQ TAB.ER.PRT 40 MEQ PO (13:47)
[2020-09-29] MEDS: Potassium Chloride ER 20 MEQ TAB.ER.PRT PO (13:49)
[2020-09-29] MEDS: Metoprolol Tartrate 5 MG in 0.9 % Sodium Chloride 50 ML 200 MG IV (13:50)
[2020-09-29] MEDS: Bumetanide 1 MG/4 ML VIAL IVPUSH (13:56)
--- NOTE | 2020-09-29 15:15 | PC.NURSE ---
2ND CALL TO FLOOR, RN UNAVAILABLE FOR REPORT.
--- NOTE | 2020-09-29 17:03 | PM.EVENT ---
Event Note Event Note: 60-year-old gentleman with past medical history significant for right-sided heart failure with preserved EF, history of atrial fibrillation on Coumadin, severe mitral stenosis, schizophrenia presented to [facility] due to shortness of breath patient was noted to have lip swelling shortness of breath and EMS felt that patient has anaphylactic reaction and was treated with epinephrine IV steroids and Pepcid patient's lip swelling resolved in the ER patient complaining of abdominal discomfort otherwise he denies any shortness of breath and is not aware what happened to him earlier on examination patient has generalized anasarca assessment and plan acute on chronic heart failure with preserved EF patient was recently discharged from hospital with similar presentation and did not respond to IV Lasix ever patient will be treated with IV Bumex will continue Alegre catheter for fluid monitoring will obtain a Cardiology consultation echocardiogram due to recurrent a INR. Question angioedema unclear precipitant as per family patient had prior episode of angioedema of unknown causes will continue IV Pepcid and Benadryl acute kidney injury likely related to cardiorenal syndrome patient be continued on diuretics follow renal function closely. Abdominal pain patient was recently evaluated for similar presentation by Dr. Alberto and it was felt that patient ascites and bowel edema was related to fluid overload no further intervention was recommended will continue IV diuretics and follow clinical course chronic hypotension will continue midodrin
[2020-09-29] MEDS: Docusate Sodium 100 MG CAPSULE PO (17:27)
[2020-09-29] MEDS: diphenhydrAMINE HCL 25 MG TABLET PO ×2 (17:28→20:53)
[2020-09-29] MEDS: Midodrine HCl 5 MG TABLET PO ×2 (17:40→20:52)
[2020-09-29] MEDS: Warfarin Sodium 7.5 MG TABLET PO (17:41)
[2020-09-29] MEDS: 0.9 % Sodium Chloride Flush 3 ML SYRINGE IVFLUSH ×2 (17:41→20:54)
--- NOTE | 2020-09-29 19:53 | PC.NURSE ---
shift grossly edematous +4 pitting edema in legs, sob on exertion, lung sounds clear, poor urine output noted in wiley; updated dr garcia; dr saldivar at bedside at 1830 with mercedes paul; orders for 2 mg iv bumex; report given to oncoming rn cory;
[2020-09-29] MEDS: Bumetanide 1 MG/4 ML VIAL 2 MG IVPUSH (20:48)
[2020-09-29] MEDS: Metoprolol Tartrate 25 MG TABLET PO (20:49)
[2020-09-29] MEDS: risperiDONE 2 MG TABLET PO (20:53)
[2020-09-29] MEDS: Benztropine Mesylate 1 MG TABLET 2 MG PO (20:53)
[2020-09-29] MEDS: Acetaminophen 325 MG TABLET 650 MG PO (21:05)
[2020-09-30] VITALS (9 sets, daily range): BP systolic 98–114; BP diastolic 60–84; PULSE 79–102; RESP 16–20; TEMP 35.6–36.6; O2SAT 96–100
[2020-09-30] MEDS: Bumetanide 1 MG/4 ML VIAL 2 MG IVPUSH ×3 (00:04→21:12)
[2020-09-30] MEDS: Morphine Sulfate 2 MG/ML CARTRIDGE 1 MG IVPUSH (00:37)
[2020-09-30] MEDS: Albuterol Sulfate (0.042%) 1.25 MG/3 ML VIAL.NEB INHALE (02:48)
--- NOTE | 2020-09-30 05:00 | ECG_ITS ---
Test Reason : CP Blood Pressure : / mmHG Vent. Rate : 087 BPM Atrial Rate : 250 BPM P-R Int : 000 ms QRS Dur : 100 ms QT Int : 424 ms P-R-T Axes : 000 083 027 degrees QTc Int : 510 ms Atrial fibrillation with premature ventricular or aberrantly conducted complexes Incomplete right bundle branch block Nonspecific T wave abnormality Abnormal ECG When compared with ECG of 29-SEP-2020 09:39, Heart rate has decreased with with premature ventricular or aberrantly conducted complexes Referred By: Jose Luis Cantrell Electronically Signed By:BRIONNA SHIN MD
[2020-09-30 06:52] LABS: Anion Gap 18 (12-20); Blood Urea Nitrogen 32 mg/dL (9-16); Calcium 7.5 mg/dL (8.4-10.2); Carbon Dioxide 19 mmol/L (22-29); Chloride 97 mmol/L (96-108); Creatinine Clr Calc Pharmacy 48.8; Estimated Glomerular Filt Rate 47; Glucose Random 125 mg/dL (60-115); Potassium 3.9 mmol/l (3.3-5.1); Sodium 130 mmol/L (135-145)
[2020-09-30 06:54] LABS: B Type Natriuretic Peptide 3067 pg/mL (<100)
[2020-09-30 06:58] LABS: INTERNATIONAL NORM RATIO 1.9 (0.9-1.1); Prothrombin Time 23.1 SEC (10.8-13.0)
[2020-09-30] MEDS: 0.9 % Sodium Chloride Flush 3 ML SYRINGE IVFLUSH ×2 (08:20→16:16)
[2020-09-30] MEDS: Famotidine/PF 20 MG/2 ML VIAL IVPUSH ×2 (08:28→21:13)
[2020-09-30] MEDS: Benztropine Mesylate 1 MG TABLET 2 MG PO ×2 (08:29→21:13)
[2020-09-30] MEDS: risperiDONE 2 MG TABLET PO ×2 (08:29→21:13)
[2020-09-30] MEDS: Metoprolol Tartrate 25 MG TABLET PO (08:29)
[2020-09-30] MEDS: diphenhydrAMINE HCL 25 MG TABLET PO ×3 (08:29→21:13)
[2020-09-30] MEDS: Digoxin 0.125 MG TABLET PO (08:29)
[2020-09-30] MEDS: Midodrine HCl 5 MG TABLET PO (08:29)
--- NOTE | 2020-09-30 10:00 | CA_ITS ---
Transthoracic Echocardiogram Limited Patient (Last, First, Middle): Jose Ferris, Gender: Male Date of : 1960 Age: 60 Procedure Date: 09/30/2020 Procedure Type: Transthoracic Echocardiogram Limited Location: [facility] [place] Height: 162.56 cm Weight: 63.5 kg BSA: 1.68 m2 Heart Rate: bpm BP: 118 / 66 mmHg Belt Operator: Referring MD: Elder Mcdonald MD Symptoms: Right heart failure. Assess RV and PA pressures. Study Quality: Good ECG Rhythm: Atrial Fibrillation Findings Left Ventricle Normal left ventricular cavity size. There is normal left ventricular wall thickness. The left ventricular systolic function is low normal. The visually estimated ejection fraction is between 50-55%. There is a flattened septum in systole and diastole consistent with right ventricular pressure and volume overload. Diastolic function is indeterminate on the basis of available data. Right Ventricle Moderately increased right ventricular cavity size. There is severely decreased right ventricular systolic function. Atria Severe biatrial enlargement. Mitral Valve The mitral valve appears rheumatic. Tricuspid Valve There is moderate to severe tricuspid valve regurgitation. Significantly elevated right atrial pressure. Mild pulmonary hypertension is present. Venous The inferior vena cava is dilated and does not collapse with inspiration. Pericardium/Pleural Small to moderate pericardial effusion. No obvious tamponade physiology. Prior Study Comparison Significant changes compared to prior study dated: 05/07/2020. Severe RV dysfunction, small to moderate pericardial effusion, moderate to severe tricuspid valve regurgitation. Measurements 2D Linear Measurements RVIDd: 3.13 RVIDd Index: 1.86 IVSd: 0.82 0.6-0.9/0.6-1.0 cm LVIDd: 5.67 3.9-5.3/4.2-5.9 cm LVIDd Index: 3.38 2.4-3.2/2.2-3.1 cm/m2 LVIDs: 3.55 2.0-3.6 cm LVPWd: 0.92 0.7-1.1 cm LV Mass: 233.40 67-162/88-224 g LV Mass Index: 138.93 43-95/49-115 g/m2 Tricuspid Valve TR Pk Zaheer: 2.29 TR Pk Grad: 21.00 RVSP: 36.00 Updated in Other Vendor System with Status of Final Elder Mcdonald MD electronically signed on 09/30/2020 7:41:50 PM with status of Final
--- NOTE | 2020-09-30 10:39 | PM.CNCAR ---
History of Present Illness History of Present Illness Date of Consult: September 30, 2020 Requesting physician: Jose Luis Cantrell Chief complaint: Generalized anasarca, Anaphylaxis, Afib w/RVR Narrative: 60-year-old gentleman with known mitral stenosis due to rheumatic heart disease and known atrial fibrillation. He has background of schizophrenia and was deemed not a good candidate for any mitral valve interventions. He has been admitted to [facility] multiple times with heart failure. He is a poor historian. He is now admitted with what appears like generalized anasarca as well as concerns for anaphylaxis. No new medications were added as per discussion with the medical staff. He is saying his abdomen is distended and he has abdominal pain. He also has significant edema involving his lower extremities as well as genitalia. He is denying any other symptoms. Medication compliance is always a question in him but it appears he has been taking medications and his INR has been therapeutic. Review of Systems Review of Systems: Limited due to schizophrenia and being a poor historian. He is complaining of abdominal pain and distension and concern about lower extremity edema. [facility] Past Medical History Medical History (Updated 09/30/20 @ 10:47 by Elder Mcdonald MD) Afib CHF (congestive heart failure) Hepatic encephalopathy Quit consuming alcohol in remote past Schizophrenia Severe mitral valve stenosis Traumatic brain injury Functional capacity: independent ambulation Social History Social History Household Members: Family Housing: House Do you presently have visiting nurse or other home services: No Alcohol intake: never Smoking Status: Former smoker Use of substances other than those prescribed or required for medical reasons: No Currently Displaying Signs/Symptoms of Drug Intoxication Withdrawal: No Have you been hit, kicked, punched, or otherwise hurt by someone within the past year? If so, by whom?: No Do you feel safe in your current relationship?: No Is there a partner from a previous relationship who is making you feel unsafe now?: No Are you made to feel afraid or neglected: No Spiritual Healthcare Practices: confucianism Advance Directives: No Advance Directives Information Provided: No Advance Directives on File: No Do you have thoughts of harming others: None Do you have a plan to hurt others: No Plan Recently lost weight without trying: No service: No Current occupational status: unemployed Meds Allergies Allergy/AdvReac Type Severity Reaction Status Date / Time Fish Containing Products Allergy Unknown UNKNOWN Verified 09/12/20 07:09 PEPPERS, JALAPENO Allergy Unknown UNKNOWN Uncoded 09/12/20 07:09 Home Medications Medication Instructions Recorded Confirmed Type benztropine 2 mg PO BID 09/12/20 09/29/20 History digoxin [Digitek] 125 mcg PO DAILY 09/12/20 09/29/20 History metoprolol tartrate 25 mg PO BID 09/12/20 09/29/20 History midodrine 5 mg PO TID 09/12/20 09/29/20 History omeprazole 40 mg PO DAILY 09/12/20 09/29/20 History risperidone 2 mg PO BID 09/12/20 09/29/20 History warfarin 7.5 mg PO DAILY 09/12/20 09/29/20 History Physical Exam Vital Signs: Vital Signs: Vital Signs Temp Pulse Resp BP Pulse Ox 09/30/20 08:29 98 09/30/20 07:23 97.4 F 93 20 113/60 96 09/30/20 03:06 97.6 F 79 16 106/82 96 09/30/20 00:37 18 09/30/20 00:00 96.1 F L 80 18 102/84 100 09/29/20 20:52 96 130/82 09/29/20 20:49 96 130/82 09/29/20 20:00 18 123/85 09/29/20 19:35 97.2 F 105 H 18 113/65 98 09/29/20 17:40 87 120/78 09/29/20 17:30 84 20 93 09/29/20 16:00 98 F 91 18 128/93 H 09/29/20 13:57 97.8 F 18 119/92 H 96 09/29/20 10:55 112 H 14 125/93 H 99 09/29/20 10:54 98.8 F 68 18 121/79 96 Body Mass Index 23.8 GENERAL APPEARANCE: in no acute distress. HEENT: unremarkable. HEAD: normocephalic, atraumatic. NECK/THYROID: no carotid bruit, JVD 14 cm water. SKIN: no suspicious lesions, warm and dry. HEART: Early diastolic murmur at the apex, irregularly irregular rhythm, S1, S2 normal. LUNGS: mild expiratory wheezes. ABDOMEN: distended, tense, dull to percussion in flanks. EXTREMITIES: no clubbing, cyanosis. Significant edema of scrotum as well as lower extremities. PERIPHERAL PULSES: equal. NEUROLOGIC: Oriented to self. Moving all extremities. Results Labs and Meds Result diagrams: 09/29/20 10:58 09/30/20 05:44 Lab results: Laboratory Results - last 24 hr 09/29/20 09/29/20 09/29/20 10:58 10:58 10:58 WBC 4.7 L RBC 4.81 Hgb 9.7 L Hct 29.8 L MCV 62.0 L MCH 20.2 L MCHC 32.6 RDW 19.9 H Plt Count 135 L D MPV Not Reportable Immature Gran % (Auto) 0.2 Neut % (Auto) 64.2 Lymph % (Auto) 17.6 L Woodson % (Auto) 9.3 Eos % (Auto) 8.1 H Baso % (Auto) 0.6 Lymph # (Auto) 0.8 L Woodson # (Auto) 0.4 Eos # (Auto) 0.4 Baso # (Auto) 0.0 Abs Immat Gran (auto) 0.01 Absolute Neuts (auto) 3.0 Absolute Nucleated RBC 0.230 H Nucleated RBC % (auto) 4.9 H Smear Tech's Comments VERIFIED PT INR Sodium 131 L Potassium 2.9 L Chloride 95 L Carbon Dioxide 21 L Anion Gap 18 BUN 31 H D Creatinine 1.74 H Estim Creat Clear Calc 43.2 Estimated GFR 41 Random Glucose 122 H D Calcium 7.3 L B-Natriuretic Peptide 2674 H Lipase 77 Coronavirus (PCR) 09/29/20 09/29/20 09/30/20 11:01 11:29 05:44 WBC RBC Hgb Hct MCV MCH MCHC RDW Plt Count MPV Immature Gran % (Auto) Neut % (Auto) Lymph % (Auto) Woodson % (Auto) Eos % (Auto) Baso % (Auto) Lymph # (Auto) Woodson # (Auto) Eos # (Auto) Baso # (Auto) Abs Immat Gran (auto) Absolute Neuts (auto) Absolute Nucleated RBC Nucleated RBC % (auto) Smear Tech's Comments PT 31.1 H INR 2.6 H Sodium Potassium Chloride Carbon Dioxide Anion Gap BUN Creatinine Estim Creat Clear Calc Estimated GFR Random Glucose Calcium B-Natriuretic Peptide 3067 H Lipase Coronavirus (PCR) NEGATIVE 09/30/20 09/30/20 05:44 05:44 WBC RBC Hgb Hct MCV MCH MCHC RDW Plt Count MPV Immature Gran % (Auto) Neut % (Auto) Lymph % (Auto) Woodson % (Auto) Eos % (Auto) Baso % (Auto) Lymph # (Auto) Woodson # (Auto) Eos # (Auto) Baso # (Auto) Abs Immat Gran (auto) Absolute Neuts (auto) Absolute Nucleated RBC Nucleated RBC % (auto) Smear Tech's Comments PT 23.1 H D INR 1.9 H Sodium 130 L Potassium 3.9 D Chloride 97 Carbon Dioxide 19 L Anion Gap 18 BUN 32 H Creatinine 1.54 H Estim Creat Clear Calc 48.8 Estimated GFR 47 Random Glucose 125 H Calcium 7.5 L B-Natriuretic Peptide Lipase Coronavirus (PCR) Assessment and Plan (1) Anasarca: Status: Acute (2) Afib: Status: Acute (3) CHF (congestive heart failure): Status: Acute (4) Severe mitral valve stenosis: Status: Acute 60-year-old gentleman complex cardiovascular issues including severe mitral stenosis due to rheumatic heart disease, previous history of congestive heart failure, chronic atrial fibrillation for which he has been on Coumadin, digoxin and metoprolol and schizophrenia/traumatic brain injury who is here with the diffuse anasarca. There is also some concern for an allergic reaction and he received treatment for anaphylaxis. He is significantly volume overloaded by exam and has diffuse edema everywhere. I agree with IV diuretics. He has AFib with RVR but I think we should not titrate beta-blockers right now. I think we should assess the RV with a limited echocardiogram to make sure there is no significant RV dysfunction. If he does not have significant RV issues then I will titrate beta-blockers as we diurese him. If on the other hand he has significant RV dysfunction than I will not titrate beta-blockers. Please do not use Cardizem in him for AFib with RVR. Continue digoxin for now. My hope is that with diuresis we can improve his forward flow and hopefully his rapid ventricular response will improve. he also is on midodrine which I am not sure why he was started on. I will look into this and if there is no obvious indications then this must be stopped. 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 Thank you for allowing me to participate in the care of your patient. Please feel free to contact me if you have any questions.
--- NOTE | 2020-09-30 11:25 | HO.PM.IMPN ---
Physical Exam Vital Signs: Vital Signs: Vital Signs Temp Pulse Resp BP Pulse Ox 09/30/20 08:29 98 09/30/20 07:23 97.4 F 93 20 113/60 96 09/30/20 03:06 97.6 F 79 16 106/82 96 09/30/20 00:37 18 09/30/20 00:00 96.1 F L 80 18 102/84 100 09/29/20 20:52 96 130/82 09/29/20 20:49 96 130/82 09/29/20 20:00 18 123/85 09/29/20 19:35 97.2 F 105 H 18 113/65 98 09/29/20 17:40 87 120/78 09/29/20 17:30 84 20 93 09/29/20 16:00 98 F 91 18 128/93 H 09/29/20 13:57 97.8 F 18 119/92 H 96 Body Mass Index 23.8 Const: General: alert and awake; No acute distress Nutritional Appearance: well nourished HENMT: Head: Yes normocephalic and Yes atraumatic Eyes: Sclerae: sclerae normal Chest: Chest palpation & inspection: normal inspection of the chest Resp: Effort & Inspection: normal respiratory effort and no respiratory distress Auscultation: clear to auscultation bilaterally Cardio: Rate: tachycardic Rhythm: abnormal rhythm irregularly irregular GI: Palpation (GI): Soft to palpation and nontender : Other: Alegre present draining small amount of clear urine Skin: General skin exam: no rashes or lesions noted Neuro: Cranial nerves: Yes CN's II-XII intact bilaterally and Yes Bilaterally intact EOM present Extrem: Other: anasarca General: Yes normal to inspection Objective Data Current Medications Generic Name Dose Route Start Last Admin Trade Name Freq PRN Reason Stop Dose Admin Acetaminophen 650 mg 09/29/20 16:30 09/29/20 21:05 Acetaminophen 325 Mg Tablet PO 650 mg Q6H PRN Administration Pain, Mild (Pain Scale 1-3) Benztropine Mesylate 2 mg 09/29/20 21:00 09/30/20 08:29 Benztropine Mesylate 1 Mg Tablet PO 2 mg BID EUSEBIO Administration Bumetanide 2 mg 09/29/20 18:30 09/30/20 08:28 Bumetanide 1 Mg/4 Ml Vial IVPUSH 2 mg BID EUSEBIO Administration Protocol Digoxin 0.125 mg 09/30/20 09:00 09/30/20 08:29 Digoxin 0.125 Mg Tablet PO 0.125 mg DAILY EUSEBIO Administration Diphenhydramine HCl 25 mg 09/29/20 16:30 09/30/20 08:29 Diphenhydramine Hcl 25 Mg Tablet PO 10/01/20 16:29 25 mg TID EUSEBIO Administration Docusate Sodium 100 mg 09/29/20 16:30 09/29/20 17:27 Docusate Sodium 100 Mg Capsule PO 100 mg DAILY PRN Administration Constipation Famotidine 20 mg 09/29/20 21:00 09/30/20 08:28 Famotidine/Pf 20 Mg/2 Ml Vial IVPUSH 20 mg BID EUSEBIO Administration Metoprolol Tartrate 25 mg 09/29/20 21:00 09/30/20 08:29 Metoprolol Tartrate 25 Mg Tablet PO 25 mg BID EUSEBIO Administration Protocol Midodrine 5 mg 09/29/20 16:30 09/30/20 08:29 Midodrine Hcl 5 Mg Tablet PO 5 mg TID EUSEBIO Administration Ondansetron HCl 4 mg 09/29/20 16:30 Ondansetron Hcl 4 Mg/2 Ml Vial IVPUSH Q8H PRN Nausea and Vomiting Pharmacy Consult 1 each 09/29/20 10:47 Consult Rx Perform Med Rec MISCELLANE ONCE PRN Consult order Risperidone 2 mg 09/29/20 21:00 09/30/20 08:29 Risperidone 2 Mg Tablet PO 2 mg BID EUSEBIO Administration Sodium Chloride 3 ml 09/29/20 16:30 09/30/20 08:20 0.9 % Sodium Chloride Flush 3 Ml Syringe IVFLUSH 3 ml QSHIFT EUSEBIO Administration Warfarin Sodium 7.5 mg 09/29/20 18:00 09/29/20 17:41 Warfarin Sodium 7.5 Mg Tablet PO 7.5 mg DAILY@1800 EUSEBIO Administration Labs CBC & Chem 7: 09/29/20 10:58 09/30/20 05:44 Assessment and Plan (1) Anasarca: Status: Acute Assessment and Plan: 60-year-old male with history of heart failure with preserved ejection fraction, atrial fibrillation on Coumadin, severe mitral stenosis, schizophrenia, history of TBI who was brought by ambulance to the emergency department for shortness of breath initially thought to be secondary to anaphylaxis/ angioedema found to be in CHF acute on chronic heart failure with preserved ejection fraction recurrent admissions for the same IV Bumex cardiology consult input noted Alegre to monitor fluid status, low-sodium diet limited echo to evaluate RV monitor weight and I/O angioedema unclear precipitant not requiring supplemental oxygen, managing secretions continue IV Pepcid, Benadryl atrial fibrillation with rapid ventricular response likely precipitated by epinephrine continue digoxin, avoid titrating BB per cardiology. Avoid Cardizem continue coumadin hypokalemia--Resolved, follow closely while on diuretic acute kidney injury ?cardiorenal/decreased perfusion, improved continue diuresis monitor renal function closely consider Nephrology consult if no improvement abdominal pain likely related to fluid overload should improve with diuresis no evidence of infection at this time thrombocytopenia chronic follow CBC schizophrenia continue risperidone, benztropine low BP continue home dose of midodrine DVT prophylaxis- coumadin this case was discussed with Dr. Cantrell
--- NOTE | 2020-09-30 12:13 | MHC.CM.PN ---
CM met with patient at the bedside who is independent, lives with his sister Michelle and nephew Syed. Patient does have a guardian on file. Discussed discharge plan, discharge home to sister and nephew with services from [facility] [employer]. Nephew Syed will provide transport [phone]. CM will continue to follow for discharge needs.
[2020-09-30] MEDS: Warfarin Sodium 7.5 MG TABLET PO (16:16)
[2020-10-01] VITALS (7 sets, daily range): BP systolic 110–182; BP diastolic 68–93; PULSE 57–108; RESP 16–22; TEMP 36.1–36.6; O2SAT 97–100
[2020-10-01] MEDS: 0.9 % Sodium Chloride Flush 3 ML SYRINGE IVFLUSH ×3 (00:29→16:05)
[2020-10-01 06:30] LABS: Hemoglobin 9.3 g/dl (14.0-18.0); Mean Corpuscular HGB Conc 33.2 g/dl (31.0-36.0); Mean Corpuscular Hemoglobin 20.2 pg (27.0-33.0); PLT CLUMP 1; Red Blood Count 4.61 X10*6/uL (4.60-5.80); Red Cell Distribution Width 19.6 % (11.0-16.0)
[2020-10-01 06:33] LABS: Mean Corpuscular Volume 60.7 fL (80-98); NRBC Pct Auto 3.4 /100WBC (0.0-0.2); PLT ABN DIST 1
[2020-10-01 06:55] LABS: Anion Gap 19 (12-20); Blood Urea Nitrogen 38 mg/dL (9-16); Calcium 7.3 mg/dL (8.4-10.2); Carbon Dioxide 19 mmol/L (22-29); Chloride 97 mmol/L (96-108); Creatinine Clr Calc Pharmacy 50.8; Estimated Glomerular Filt Rate 49; Glucose Random 93 mg/dL (60-115); Potassium 3.7 mmol/l (3.3-5.1); Sodium 131 mmol/L (135-145)
[2020-10-01 07:34] LABS: Platelet Count 122 X10*3/uL (160-400)
[2020-10-01] MEDS: Bumetanide 1 MG/4 ML VIAL 2 MG IVPUSH ×2 (09:10→21:31)
[2020-10-01] MEDS: risperiDONE 2 MG TABLET PO ×2 (09:13→21:32)
[2020-10-01] MEDS: Benztropine Mesylate 1 MG TABLET 2 MG PO ×2 (09:13→21:32)
[2020-10-01] MEDS: Famotidine/PF 20 MG/2 ML VIAL IVPUSH ×2 (09:14→21:31)
[2020-10-01] MEDS: diphenhydrAMINE HCL 25 MG TABLET PO ×2 (09:14→16:01)
[2020-10-01] MEDS: Digoxin 0.125 MG TABLET PO (09:14)
[2020-10-01 09:32] LABS: INTERNATIONAL NORM RATIO 2.1 (0.9-1.1); Prothrombin Time 25.6 SEC (10.8-13.0)
--- NOTE | 2020-10-01 11:43 | HO.PM.IMPN ---
Subjective Subjective Date of Service: 10/01/20 Interval History: Seen in f/u for heart failure, anasarca. Still fairly swollen. confused Review of Systems confused Review of Systems: Yes Unobtainable due to mental status Physical Exam Vital Signs: Vital Signs: Vital Signs Temp Pulse Resp BP Pulse Ox 10/01/20 11:28 97.2 F 98 19 127/87 100 10/01/20 08:00 97.8 F 108 H 22 H 161/90 H 100 10/01/20 04:04 110/68 10/01/20 03:53 96.9 F 104 H 22 H 182/93 H 100 09/30/20 23:22 96.8 F 95 18 114/80 100 09/30/20 19:51 97.8 F 79 20 110/65 100 09/30/20 15:25 97.8 F 79 20 101/70 100 Body Mass Index 23.8 General: Alert, no oriented, no distress Resp: rales at bases CVS: ireg, meenu 2+ leg edema GI: +BS, NT, no distention Skin: No rash Neuro: motor grossly intact, yet confused Psych: flat affect Const: General: alert : Other: Extrem: Other: anasarca Objective Data Current Medications Generic Name Dose Route Start Last Admin Trade Name Freq PRN Reason Stop Dose Admin Acetaminophen 650 mg 09/29/20 16:30 09/29/20 21:05 Acetaminophen 325 Mg Tablet PO 650 mg Q6H PRN Administration Pain, Mild (Pain Scale 1-3) Benztropine Mesylate 2 mg 09/29/20 21:00 10/01/20 09:13 Benztropine Mesylate 1 Mg Tablet PO 2 mg BID EUSEBIO Administration Bumetanide 2 mg 09/29/20 18:30 10/01/20 09:10 Bumetanide 1 Mg/4 Ml Vial IVPUSH 2 mg BID EUSEBIO Administration Protocol Digoxin 0.125 mg 09/30/20 09:00 10/01/20 09:14 Digoxin 0.125 Mg Tablet PO 0.125 mg DAILY EUSEBIO Administration Diphenhydramine HCl 25 mg 09/29/20 16:30 10/01/20 09:14 Diphenhydramine Hcl 25 Mg Tablet PO 10/01/20 16:29 25 mg TID EUSEBIO Administration Docusate Sodium 100 mg 09/29/20 16:30 09/29/20 17:27 Docusate Sodium 100 Mg Capsule PO 100 mg DAILY PRN Administration Constipation Famotidine 20 mg 09/29/20 21:00 10/01/20 09:14 Famotidine/Pf 20 Mg/2 Ml Vial IVPUSH 20 mg BID EUSEBIO Administration Ondansetron HCl 4 mg 09/29/20 16:30 Ondansetron Hcl 4 Mg/2 Ml Vial IVPUSH Q8H PRN Nausea and Vomiting Pharmacy Consult 1 each 09/29/20 10:47 Consult Rx Perform Med Rec MISCELLANE ONCE PRN Consult order Risperidone 2 mg 09/29/20 21:00 10/01/20 09:13 Risperidone 2 Mg Tablet PO 2 mg BID EUSEBIO Administration Sodium Chloride 3 ml 09/29/20 16:30 10/01/20 09:14 0.9 % Sodium Chloride Flush 3 Ml Syringe IVFLUSH 3 ml QSHIFT EUSEBIO Administration Warfarin Sodium 7.5 mg 09/29/20 18:00 09/30/20 16:16 Warfarin Sodium 7.5 Mg Tablet PO 7.5 mg DAILY@1800 EUSEBIO Administration Labs CBC & Chem 7: 10/01/20 05:17 10/01/20 05:17 Assessment and Plan (1) Anasarca: Status: Acute Assessment and Plan: 60-year-old male with history of heart failure with preserved ejection fraction, atrial fibrillation on Coumadin, severe mitral stenosis, schizophrenia, history of TBI who was brought by ambulance to the emergency department for shortness of breath initially thought to be secondary to anaphylaxis/ angioedema found to be in CHF acute on chronic heart failure with preserved ejection fraction recurrent admissions for the same IV Bumex cardiology consult input noted Codey to monitor fluid status, low-sodium diet monitor weight and I/O avoid titrating BB due RV issues avoid CCB angioedema unclear precipitant, seems to have resolved atrial fibrillation rate seems ok continue digoxin, avoid titrating BB per cardiology. Avoid Cardizem continue coumadin hypokalemia--Resolved, follow closely while on diuretic acute kidney injury ?cardiorenal/decreased perfusion, improved continue diuresis monitor renal function closely consider Nephrology consult if no improvement abdominal pain likely related to fluid overload should improve with diuresis no evidence of infection at this time thrombocytopenia chronic follow CBC schizophrenia continue risperidone, benztropine low BP continue home dose of midodrine DVT prophylaxis- coumadin this case was discussed with Dr. Cantrell
--- NOTE | 2020-10-01 11:46 | P.PNCAR_ITS ---
Subjective Subjective Interval history: Was agitated this morning. Currently sleeping. Review of Systems Review of Systems Review of systems limited due to somnolence Physical Exam Vital Signs: Vital Signs Temp Pulse Resp BP Pulse Ox 10/01/20 11:28 97.2 F 98 19 127/87 100 10/01/20 08:00 97.8 F 108 H 22 H 161/90 H 100 10/01/20 04:04 110/68 10/01/20 03:53 96.9 F 104 H 22 H 182/93 H 100 09/30/20 23:22 96.8 F 95 18 114/80 100 09/30/20 19:51 97.8 F 79 20 110/65 100 09/30/20 15:25 97.8 F 79 20 101/70 100 Body Mass Index 23.8 GENERAL APPEARANCE: in no acute distress, sleepy but arousable. HEENT: unremarkable. HEAD: normocephalic, atraumatic. NECK/THYROID: no carotid bruit, JVD + SKIN: no suspicious lesions, warm and dry. HEART: diastolic murmur at the apex, irregularly irregular rhythm, S1, S2 normal. LUNGS: clear to auscultation bilaterally. ABDOMEN: tense, distended. EXTREMITIES: no clubbing, cyanosis. 1 to 2+ edema. PERIPHERAL PULSES: equal. NEUROLOGIC: sleepy and drowsy this morning. Arousable. Moving all extremities. Results Labs and Meds Result diagrams: 10/01/20 05:17 10/01/20 05:17 Lab results: Laboratory Results - last 24 hr 10/01/20 10/01/20 10/01/20 05:17 05:17 05:17 WBC 9.0 RBC 4.61 Hgb 9.3 L Hct 28.0 L MCV 60.7 L MCH 20.2 L MCHC 33.2 RDW 19.6 H Plt Count 122 L MPV Not Reportable Absolute Nucleated RBC 0.310 H Nucleated RBC % (auto) 3.4 H PT 25.6 H INR 2.1 H Sodium 131 L Potassium 3.7 Chloride 97 Carbon Dioxide 19 L Anion Gap 19 BUN 38 H Creatinine 1.48 H Estim Creat Clear Calc 50.8 Estimated GFR 49 Random Glucose 93 Calcium 7.3 L Cardiology Testing Echo: other (Left Ventricle Normal left ventricular cavity size. There is normal left ventricular wall thickness. The left ventricular systolic function is low normal. The visually estimated ejection fraction is between 50-55%. There is a flattened septum in systole and diastole consistent with right ventric) Progress Note: A&P Assessment and plan (1) Severe mitral valve stenosis: Status: Acute (2) Anaphylaxis: Status: Acute (3) Anasarca: Status: Acute (4) Afib: Status: Acute (5) Right ventricular failure: Status: Acute Assessment and Plan: 60-year-old gentleman with complex cardiovascular issues including severe rheumatic mitral valve stenosis for which she was deemed not a candidate for any interventions due to history of traumatic band injury and schizophrenia. He is presenting now with significant edema all over the body and severe RV dysfuncti on on echocardiogram. He was on midodrine for unclear reasons and was on metoprolol and digoxin for atrial fibrillation. Given RV dysfunction have stopped his beta-tammy right now. I think we continue the IV diuretics for now. He should have a digoxin level checked tomorrow morning. If he has AFib with RVR, please do not push IV metoprolol or Cardizem because he will not tolerate that. Clinically still volume overloaded and I think we continue the diuretics. His electrolytes need to be monitored closely as he is on digoxin. In particular hypokalemia can increase chance of dig toxicity in him. He came with the concern for angioedema and lip swelling. He is currently on Benadryl and Pepcid. He is very somnolent and quite agitated. I think we should reconsider using further Benadryl in him. We will follow along with you. Thank you for allowing me to participate in the care of your patient. Please feel free to contact me if you have any questions. Fall Risk Details Current Medications: Current Medications Generic Name Dose Route Start Last Admin Trade Name Freq PRN Reason Stop Dose Admin Acetaminophen 650 mg 09/29/20 16:30 09/29/20 21:05 Acetaminophen 325 Mg Tablet PO 650 mg Q6H PRN Administration Pain, Mild (Pain Scale 1-3) Benztropine Mesylate 2 mg 09/29/20 21:00 10/01/20 09:13 Benztropine Mesylate 1 Mg Tablet PO 2 mg BID EUSEBIO Administration Bumetanide 2 mg 09/29/20 18:30 10/01/20 09:10 Bumetanide 1 Mg/4 Ml Vial IVPUSH 2 mg BID EUSEBIO Administration Protocol Digoxin 0.125 mg 09/30/20 09:00 10/01/20 09:14 Digoxin 0.125 Mg Tablet PO 0.125 mg DAILY EUSEBIO Administration Diphenhydramine HCl 25 mg 09/29/20 16:30 10/01/20 09:14 Diphenhydramine Hcl 25 Mg Tablet PO 10/01/20 16:29 25 mg TID EUSEBIO Administration Docusate Sodium 100 mg 09/29/20 16:30 09/29/20 17:27 Docusate Sodium 100 Mg Capsule PO 100 mg DAILY PRN Administration Constipation Famotidine 20 mg 09/29/20 21:00 10/01/20 09:14 Famotidine/Pf 20 Mg/2 Ml Vial IVPUSH 20 mg BID EUSEBIO Administration Ondansetron HCl 4 mg 09/29/20 16:30 Ondansetron Hcl 4 Mg/2 Ml Vial IVPUSH Q8H PRN Nausea and Vomiting Pharmacy Consult 1 each 09/29/20 10:47 Consult Rx Perform Med Rec MISCELLANE ONCE PRN Consult order Risperidone 2 mg 09/29/20 21:00 10/01/20 09:13 Risperidone 2 Mg Tablet PO 2 mg BID EUSEBIO Administration Sodium Chloride 3 ml 09/29/20 16:30 10/01/20 09:14 0.9 % Sodium Chloride Flush 3 Ml Syringe IVFLUSH 3 ml QSHIFT EUSEBIO Administration Warfarin Sodium 7.5 mg 09/29/20 18:00 09/30/20 16:16 Warfarin Sodium 7.5 Mg Tablet PO 7.5 mg DAILY@1800 EUSEBIO Administration Time Spent With Patient Time: Total time spent is greater than 50% in coordination of care (as documented) at patient's floor/unit and/or counseling patient: Time with patient: less than 15 minutes
--- NOTE | 2020-10-01 15:34 | MHC.CM.PN ---
THERESE called Darlin Regalado from [facility] at [facility] at [phone]. LM patient admitted for CHF.
--- NOTE | 2020-10-01 17:52 | PM.EVENT ---
Event Note Event Note: I had goals of care conversation with patient's brother Dionna Ferris (HCP) over the phone at phone number [phone] during which time we discussed patient's ongoing medical issues and overall poor prognosis with progressive heart failure and progressive confusion and further discussed risks and benefits of CPR and intubation and brother concluded that CPR and mechanical ventilation would not be in the brother's interest and therefore elected for DNR/DNI. CHICA Ahumada was part of the conversation. Will change status to DNR and try and get form faxed to brother in the AM.
[2020-10-01] MEDS: Warfarin Sodium 7.5 MG TABLET PO (17:53)
--- NOTE | 2020-10-01 18:23 | PC.NURSE ---
This RN witnessed conversation with Dionna Navarreten (Jose's brother/HCP) and Dr. Gonzalez in which the decision was made to change code status to DNR/DNI.
[2020-10-02] VITALS (9 sets, daily range): BP systolic 110–135; BP diastolic 69–82; PULSE 73–127; RESP 12–20; TEMP 36.1–36.6; O2SAT 97–100
[2020-10-02] MEDS: 0.9 % Sodium Chloride Flush 3 ML SYRINGE IVFLUSH ×4 (00:54→21:53)
[2020-10-02] MEDS: LORazepam 2 MG/ML VIAL 1 MG IVPUSH (01:44)
--- NOTE | 2020-10-02 09:15 | P.PNCAR_ITS ---
Subjective Subjective Interval history: Congestive heart failure follow up. Sleepy, moaning. Still with anasarca, JVD. No acute resp distress noted. Review of Systems Review of Systems Yes Unobtainable due to mental condition Physical Exam Vital Signs: Vital Signs Temp Pulse Resp BP Pulse Ox 10/02/20 07:01 97.8 F 100 16 135/69 100 10/02/20 03:36 97.2 F 86 18 120/82 98 10/01/20 23:07 97.8 F 57 16 130/80 99 10/01/20 20:00 106 H 147/74 H 97 10/01/20 16:00 97.1 F 68 22 H 119/76 100 10/01/20 11:28 97.2 F 98 19 127/87 100 Body Mass Index 23.8 Const Other: Sleepy, moans with trying to awaken him. No acute distress noted. Not following commands at this time HENMT Other: JVD present to jawline Head: Yes normal to inspection Neck Carotids: carotid upstroke abnormal Resp Effort & Inspection: normal respiratory effort and no retractions Auscultation: crackles (anterior chest, dim bases posteriorly), no rhonchi and no wheezes Cardio Rate: abnormal rate (irregular rapid, no distinct murmur noted) Heart sounds: S1 normal heart sound present and S2 normal heart sound present Peripheral pulses: Peripheral pulses 2+ throughout (Tight lower leg edema, Pitting edema over body, +2 of lateral chest ) GI Inspection: Yes normal to inspection Skin General skin exam: no rashes or lesions noted Extrem General: No cyanosis and Yes edema Results Labs and Meds Result diagrams: 10/01/20 05:17 10/01/20 05:17 Lab results: Laboratory Results - last 24 hr 10/01/20 10/01/20 05:17 05:17 Smear Path Review SEE NOTE PT 25.6 H INR 2.1 H Progress Note: A&P Assessment and plan (1) Right ventricular failure: Status: Acute Assessment and Plan: Hx of diastolic HF. Admit with concern for anaphylaxis which was treated, then noted to have acute on chronic CHF. Has generalized anasarca which persists. He is being diuresed with IV Bumex and fluid balance neg 4 liters since admit. Echo showed EF 50-55%, RV pressure overload, severe decrease in RV systolic function, severe biatrial enlargement, mod to severe TR, small to mod effusion. He has carrie oing JVD, rales, edema on exam. Needs further diuresis. Continue Bumex 2 mg bid. Ongoing strict I+O monitoring. Close monitoring of electrolyte and kidney function. Avoid BB/ CCB use due to acute HF. (2) Severe mitral valve stenosis: Status: Acute Assessment and Plan: Hx of severe MS - not noted on his limited echo. Not a candidate for surgical intervention due to his dementia, TBI. (3) Anasarca: Status: Acute (4) Afib: Status: Acute Assessment and Plan: Hx chronic afib, treated with rate control. Had been on Metoprolol and Digoxin. Metoprolol stopped this admit in setting of acute right HF. He continues on digoxin. Tele this am shows Afib, rates 105-120. Ongoing Tele monitoring. Will check Digoxin level. He is normally on coumadin for anticoagulation. INR elevated few days ago and coumadin held. INR 2.1 yesterday. Coumadin can be restarted. INR goal 2-3. (5) CHF (congestive heart failure): Status: Acute Fall Risk Details Current Medications: Current Medications Generic Name Dose Route Start Last Admin Trade Name Freq PRN Reason Stop Dose Admin Acetaminophen 650 mg 09/29/20 16:30 09/29/20 21:05 Acetaminophen 325 Mg Tablet PO 650 mg Q6H PRN Administration Pain, Mild (Pain Scale 1-3) Benztropine Mesylate 2 mg 09/29/20 21:00 10/01/20 21:32 Benztropine Mesylate 1 Mg Tablet PO 2 mg BID EUSEBIO Administration Bumetanide 2 mg 09/29/20 18:30 10/01/20 21:31 Bumetanide 1 Mg/4 Ml Vial IVPUSH 2 mg BID EUSEBIO Administration Protocol Digoxin 0.125 mg 09/30/20 09:00 10/01/20 09:14 Digoxin 0.125 Mg Tablet PO 0.125 mg DAILY EUSEBIO Administration Docusate Sodium 100 mg 09/29/20 16:30 09/29/20 17:27 Docusate Sodium 100 Mg Capsule PO 100 mg DAILY PRN Administration Constipation Famotidine 20 mg 09/29/20 21:00 10/01/20 21:31 Famotidine/Pf 20 Mg/2 Ml Vial IVPUSH 20 mg BID EUSEBIO Administration Ondansetron HCl 4 mg 09/29/20 16:30 Ondansetron Hcl 4 Mg/2 Ml Vial IVPUSH Q8H PRN Nausea and Vomiting Pharmacy Consult 1 each 09/29/20 10:47 Consult Rx Perform Med Rec MISCELLANE ONCE PRN Consult order Risperidone 2 mg 09/29/20 21:00 10/01/20 21:32 Risperidone 2 Mg Tablet PO 2 mg BID EUSEBIO Administration Sodium Chloride 3 ml 09/29/20 16:30 10/02/20 00:54 0.9 % Sodium Chloride Flush 3 Ml Syringe IVFLUSH 3 ml QSHIFT EUSEBIO Administration Warfarin Sodium 7.5 mg 09/29/20 18:00 10/01/20 17:53 Warfarin Sodium 7.5 Mg Tablet PO 7.5 mg DAILY@1800 EUSEBIO Administration Time Spent With Patient Time: 12 minutes with patient Time with patient: less than 15 minutes
[2020-10-02] MEDS: Bumetanide 1 MG/4 ML VIAL 2 MG IVPUSH ×2 (09:43→21:52)
[2020-10-02] MEDS: Famotidine/PF 20 MG/2 ML VIAL IVPUSH ×2 (09:44→21:53)
--- NOTE | 2020-10-02 10:57 | MHC.CM.PN ---
Male 60 DX HF. Code status change 10/01/20 DNR. Pt may need hospice. DP home with Family. Transportation will be provided by Nephew. CM will follow.
[2020-10-02] MEDS: risperiDONE 2 MG TABLET PO ×2 (11:01→21:52)
[2020-10-02] MEDS: Benztropine Mesylate 1 MG TABLET 2 MG PO ×2 (11:01→21:52)
[2020-10-02] MEDS: Digoxin 0.125 MG TABLET PO (11:01)
[2020-10-02 11:03] LABS: INTERNATIONAL NORM RATIO 3.3 (0.9-1.1); Prothrombin Time 40.2 SEC (10.8-13.0)
--- NOTE | 2020-10-02 11:59 | HO.PM.IMPN ---
Subjective Subjective Date of Service: 10/02/20 Interval History: Seen in f/u for heart failure exacerbation and progressive confusion. He reportedly was very agitated confused, restless overnight and was given ativan and is been fairly l Review of Systems Review of Systems: Yes Unobtainable due to mental status Physical Exam Vital Signs: Vital Signs: Vital Signs Temp Pulse Resp BP Pulse Ox 10/02/20 11:18 97.2 F 127 H 18 110/77 100 10/02/20 11:01 120 H 10/02/20 07:01 97.8 F 100 16 135/69 100 10/02/20 03:36 97.2 F 86 18 120/82 98 10/01/20 23:07 97.8 F 57 16 130/80 99 10/01/20 20:00 106 H 147/74 H 97 10/01/20 16:00 97.1 F 68 22 H 119/76 100 General: Very somnolent, easily aroused, confused Resp: rales at bases CVS: ireg, meenu 2+ leg edema GI: +BS, NT, no distention Skin: No rash Neuro: motor grossly intact, yet confused Psych: flat affect Objective Data Current Medications Generic Name Dose Route Start Last Admin Trade Name Freq PRN Reason Stop Dose Admin Acetaminophen 650 mg 09/29/20 16:30 09/29/20 21:05 Acetaminophen 325 Mg Tablet PO 650 mg Q6H PRN Administration Pain, Mild (Pain Scale 1-3) Benztropine Mesylate 2 mg 09/29/20 21:00 10/02/20 11:01 Benztropine Mesylate 1 Mg Tablet PO 2 mg BID EUSEBIO Administration Bumetanide 2 mg 09/29/20 18:30 10/02/20 09:43 Bumetanide 1 Mg/4 Ml Vial IVPUSH 2 mg BID EUSEBIO Administration Protocol Docusate Sodium 100 mg 09/29/20 16:30 09/29/20 17:27 Docusate Sodium 100 Mg Capsule PO 100 mg DAILY PRN Administration Constipation Famotidine 20 mg 09/29/20 21:00 10/02/20 09:44 Famotidine/Pf 20 Mg/2 Ml Vial IVPUSH 20 mg BID EUSEBIO Administration Ondansetron HCl 4 mg 09/29/20 16:30 Ondansetron Hcl 4 Mg/2 Ml Vial IVPUSH Q8H PRN Nausea and Vomiting Pharmacy Consult 1 each 09/29/20 10:47 Consult Rx Perform Med Rec MISCELLANE ONCE PRN Consult order Risperidone 2 mg 09/29/20 21:00 10/02/20 11:01 Risperidone 2 Mg Tablet PO 2 mg BID EUSEBIO Administration Sodium Chloride 3 ml 09/29/20 16:30 10/02/20 09:44 0.9 % Sodium Chloride Flush 3 Ml Syringe IVFLUSH 3 ml QSHIFT EUSEBIO Administration Warfarin Sodium 7.5 mg 09/29/20 18:00 10/01/20 17:53 Warfarin Sodium 7.5 Mg Tablet PO 7.5 mg DAILY@1800 EUSEBIO Administration Labs CBC & Chem 7: 10/01/20 05:17 10/01/20 05:17 Assessment and Plan (1) Anasarca: Status: Acute Assessment and Plan: 60-year-old male with history of heart failure with preserved ejection fraction, atrial fibrillation on Coumadin, severe mitral stenosis, schizophrenia, history of TBI who was brought by ambulance to the emergency department for shortness of breath initially thought to be secondary to anaphylaxis/ angioedema found to be in CHF acute on chronic heart failure with preserved ejection fraction recurrent admissions for the same IV Bumex cardiology consult input noted Alegre to monitor fluid status, low-sodium diet monitor weight and I/O avoid titrating BB due RV issues avoid CCB per card angioedema unclear precipitant, seems to have resolved atrial fibrillation rate seems --generally rate controlled when patient is not agitated. Continue BB. Cardiology want dig discontinued hypokalemia--Resolved, follow closely while on diuretic Acute kidney injury ?cardiorenal/decreased perfusion, improved continue diuresis monitor renal function closely consider Nephrology consult if no improvement abdominal pain likely related to fluid overload should improve with diuresis no evidence of infection at this time thrombocytopenia chronic follow CBC schizophrenia continue risperidone, benztropine low BP continue home dose of midodrine confusion/altered mental status--this has been an ongoing thing and is worsening..? due to acute illness, underlying congnitive impairment, check liver function and ammonia. His prognosis continue to be very bad.. DVT prophylaxis- coumadin this case was discussed with Dr. Cantrell
[2020-10-02 12:58] LABS: Ammonia 27 umol/L (13-55)
[2020-10-02 13:07] LABS: Alanine Aminotransferase 31 U/L (0-40); Albumin Level 2.9 g/dL (3.5-5.0); Alkaline Phosphatase 98 U/L (39-117); Aspartate Amino Transferase 44 U/L (5-37); Bilirubin Direct 2.5 mg/dL (0.0-0.5); Bilirubin Total 3.6 mg/dL (0.0-1.0); Total Protein 6.2 g/dL (6.5-8.0)
--- NOTE | 2020-10-02 18:17 | PC.NURSE ---
Attemted removing wiley at 0900 and using [place] cath on pt. Pt was voiding but became restless and agitated. . Pt bladder scanned for about 800mls. Notifed ricardo PAREDES to put wiley in. Put 18 uzbek in at 1445, pt tolerated ok.
[2020-10-02] MEDS: Morphine Sulfate 2 MG/ML CARTRIDGE IVPUSH (18:26)
[2020-10-03 03:33] VITALS: BP 120/85; PULSE 91; RESP 17; TEMP 36.3; O2SAT 100
[2020-10-03 06:47] LABS: Digoxin 0.3 ng/mL (0.8-2.0)
[2020-10-03 07:11] VITALS: BP 110/69; PULSE 86; RESP 18; TEMP 521.6; TEMP 971; O2SAT 100
[2020-10-03] MEDS: 0.9 % Sodium Chloride Flush 3 ML SYRINGE IVFLUSH ×3 (07:32→23:33)
[2020-10-03 08:00] VITALS: RESP 20
[2020-10-03 09:02] LABS: INTERNATIONAL NORM RATIO 3.8 (0.9-1.1)
[2020-10-03 09:36] LABS: Anion Gap 13 (12-20); Blood Urea Nitrogen 19 mg/dL (9-16); Carbon Dioxide 34 mmol/L (22-29); Chloride 98 mmol/L (96-108); Creatinine Clr Calc Pharmacy 89.6; Estimated Glomerular Filt Rate > 60; Glucose Random 68 mg/dL (60-115); Potassium 2.5 mmol/l (3.3-5.1); Sodium 142 mmol/L (135-145)
--- NOTE | 2020-10-03 10:05 | PM.PNCARD ---
Subjective Subjective Interval history: Cardiology follow up for HF exacerbation. Awake, no acute distress. Breathing more comfortable. Still has pitting edema. Sitter at his bedside Review of Systems Review of Systems Yes Unobtainable due to mental condition (confusion, TBI) Physical Exam Vital Signs: Vital Signs Temp Pulse Resp BP Pulse Ox 10/03/20 08:00 20 10/03/20 07:11 971 F H 86 18 110/69 100 10/03/20 03:33 97.4 F 91 17 120/85 100 10/02/20 23:57 97.0 F 86 16 128/78 99 10/02/20 19:36 12 10/02/20 19:05 97.6 F 98 18 124/74 100 10/02/20 18:26 20 10/02/20 15:02 97.1 F 73 20 112/76 97 10/02/20 11:18 97.2 F 127 H 18 110/77 100 10/02/20 11:01 120 H Body Mass Index 23.8 Const Other: Speaking but difficult to understand, unclear full orientation General: no acute distress, alert and awake HENMT Other: JVD present to jaw Neck Carotids: carotid upstroke abnormal Chest Other: pitting edema to each lateral thorax Resp Effort & Inspection: normal respiratory effort (HOB elevated, no cough, seems unlabored, Fine rales anterior upper chest) Auscultation: no rhonchi and no wheezes Cardio Rhythm: abnormal rhythm (irreg with afib) Heart sounds: S1 normal heart sound present (Known severe MS and mod to severe TR, no clear murmur noted) and S2 normal heart sound present GI Inspection: Yes normal to inspection Skin General skin exam: no rashes or lesions noted Extrem Other: generalized anasarca improving. Still with at least +1 pitting to lower legs and 2+ lateral chest stovall Results Labs and Meds Result diagrams: 10/01/20 05:17 10/03/20 08:07 Lab results: Laboratory Results - last 24 hr 10/02/20 10/02/20 10/02/20 10:33 12:07 12:07 PT 40.2 H D INR 3.3 H Sodium Potassium Chloride Carbon Dioxide Anion Gap BUN Creatinine Estim Creat Clear Calc Estimated GFR Random Glucose Calcium Total Bilirubin 3.6 H Direct Bilirubin 2.5 H AST 44 H ALT 31 Alkaline Phosphatase 98 Ammonia 27 Total Protein 6.2 L Albumin 2.9 L Digoxin 10/03/20 10/03/20 10/03/20 05:35 08:07 08:07 PT 46.0 H INR 3.8 H Sodium 142 Potassium 2.5 L* D Chloride 98 Carbon Dioxide 34 H Anion Gap 13 BUN 19 H Creatinine 0.84 Estim Creat Clear Calc 89.6 Estimated GFR > 60 Random Glucose 68 Calcium 7.0 L Total Bilirubin Direct Bilirubin AST ALT Alkaline Phosphatase Ammonia Total Protein Albumin Digoxin 0.3 L Progress Note: A&P Assessment and plan (1) CHF (congestive heart failure): Status: Acute Assessment and Plan: Admit with acute on chronic diastolic CHF, anasarca. Echo shows EF 50-55%, signs of volume overload, small to mod pericardial effusion, mod to severe TR. Being diuresed and gradually improving. Fluid balance Neg 10 liters since admit. Breathing seems less labored, still has JVD and generalized pitting edema. Electrolytes added to labs this am and K 2.5. Cortexed hospitalist with request for replacement. Continue IV Bumex. Ongoing Strict I+O monitoring, Daily weights, close monitoring of electrolyte and kidney function. (2) Right ventricular failure: Status: Acute (3) Severe mitral valve stenosis: Status: Acute Assessment and Plan: Followed as outpt in our office. Not a candidate for surgical intervention due to TBI, dementia. (4) Anasarca: Status: Acute (5) Acute hypokalemia: Status: Acute Assessment and Plan: K 2.5 today. Hospitalist confirmed he will order replacement. Needs close monitoring (6) Afib: Status: Acute Assessment and Plan: Hx chronic afib. Metoprolol held on admit due to CHF. Has been on digoxin for rate control. Rates have been elevated at times with his agitation. At rest, rates go into 80s. Dig level 0.3. Continue Digoxin at 0.125mg daily. Ongoing tele monitoring. On coumadin for anticoagulation. INR goal 2-3. INR today 3.3. adjustments managed by hospitalist. Fall Risk Details Current Medications: Current Medications Generic Name Dose Route Start Last Admin Trade Name Freq PRN Reason Stop Dose Admin Acetaminophen 650 mg 09/29/20 16:30 09/29/20 21:05 Acetaminophen 325 Mg Tablet PO 650 mg Q6H PRN Administration Pain, Mild (Pain Scale 1-3) Benztropine Mesylate 2 mg 09/29/20 21:00 10/02/20 21:52 Benztropine Mesylate 1 Mg Tablet PO 2 mg BID EUSEBIO Administration Bumetanide 2 mg 09/29/20 18:30 10/02/20 21:52 Bumetanide 1 Mg/4 Ml Vial IVPUSH 2 mg BID EUSEBIO Administration Protocol Docusate Sodium 100 mg 09/29/20 16:30 09/29/20 17:27 Docusate Sodium 100 Mg Capsule PO 100 mg DAILY PRN Administration Constipation Famotidine 20 mg 09/29/20 21:00 10/02/20 21:53 Famotidine/Pf 20 Mg/2 Ml Vial IVPUSH 20 mg BID EUSEBIO Administration Morphine Sulfate 2 mg 10/02/20 15:08 10/02/20 18:26 Morphine Sulfate 2 Mg/Ml Cartridge IVPUSH 2 mg Q6H PRN Administration Pain, Severe (Pain Scale 7-10) Ondansetron HCl 4 mg 09/29/20 16:30 Ondansetron Hcl 4 Mg/2 Ml Vial IVPUSH Q8H PRN Nausea and Vomiting Pharmacy Consult 1 each 09/29/20 10:47 Consult Rx Perform Med Rec MISCELLANE ONCE PRN Consult order Risperidone 2 mg 09/29/20 21:00 10/02/20 21:52 Risperidone 2 Mg Tablet PO 2 mg BID EUSEBIO Administration Sodium Chloride 3 ml 09/29/20 16:30 10/03/20 07:32 0.9 % Sodium Chloride Flush 3 Ml Syringe IVFLUSH 3 ml QSHIFT [facility] Administration Warfarin Sodium 7.5 mg 09/29/20 18:00 10/02/20 18:31 Warfarin Sodium 7.5 Mg Tablet PO Not Given DAILY@1800 [facility] Time Spent With Patient Time: Total time spent is greater than 50% in coordination of care (as documented) at patient's floor/unit and/or counseling patient: 12 Time with patient: less than 15 minutes
[2020-10-03] MEDS: Bumetanide 1 MG/4 ML VIAL 2 MG IVPUSH ×2 (10:34→22:14)
[2020-10-03] MEDS: Benztropine Mesylate 1 MG TABLET 2 MG PO ×2 (10:34→22:17)
[2020-10-03] MEDS: risperiDONE 2 MG TABLET PO ×2 (10:34→22:18)
[2020-10-03] MEDS: Famotidine/PF 20 MG/2 ML VIAL IVPUSH ×2 (10:34→22:18)
[2020-10-03] MEDS: Potassium Chloride/H20 10 MEQ/100 ML PIGGYBACK 100 MEQ IV ×2 (10:35→11:38)
[2020-10-03] MEDS: Potassium Chloride Packet 20 MEQ PACKET 40 MEQ PO ×3 (10:53→22:14)
[2020-10-03 10:59] LABS: Magnesium 1.3 mg/dL (1.6-2.6)
--- NOTE | 2020-10-03 11:38 | P.PNIM_ITS ---
Subjective Subjective Date of Service: 10/03/20 Interval History: Seen in follow up for HF exacerbation and increasing confusion. He is more alert today and phsycically look better, progressing to baseline. Breathing is more comfortable. swelling is less Review of Systems gen: no fever CV: +BROWNE, swelling in legs Neuro: confusion (close to baseline) Physical Exam Vital Signs: Vital Signs: Vital Signs Temp Pulse Resp BP Pulse Ox 10/03/20 08:00 20 10/03/20 07:11 971 F H 86 18 110/69 100 10/03/20 03:33 97.4 F 91 17 120/85 100 10/02/20 23:57 97.0 F 86 16 128/78 99 10/02/20 19:36 12 10/02/20 19:05 97.6 F 98 18 124/74 100 10/02/20 18:26 20 10/02/20 15:02 97.1 F 73 20 112/76 97 Body Mass Index 23.8 General: more alert, less confused, less agitation Resp: rales at bases CVS: ireg, meenu 2+ leg edema GI: +BS, NT, no distention Skin: No rash Neuro: motor grossly intact, less confused Psych: flat affect Objective Data Current Medications Generic Name Dose Route Start Last Admin Trade Name Freq PRN Reason Stop Dose Admin Acetaminophen 650 mg 09/29/20 16:30 09/29/20 21:05 Acetaminophen 325 Mg Tablet PO 650 mg Q6H PRN Administration Pain, Mild (Pain Scale 1-3) Benztropine Mesylate 2 mg 09/29/20 21:00 10/03/20 10:34 Benztropine Mesylate 1 Mg Tablet PO 2 mg BID EUSEBIO Administration Bumetanide 2 mg 09/29/20 18:30 10/03/20 10:34 Bumetanide 1 Mg/4 Ml Vial IVPUSH 2 mg BID EUSEBIO Administration Protocol Digoxin 0.125 mg 10/03/20 14:00 Digoxin 0.125 Mg Tablet PO DAILY EUSEBIO Docusate Sodium 100 mg 09/29/20 16:30 09/29/20 17:27 Docusate Sodium 100 Mg Capsule PO 100 mg DAILY PRN Administration Constipation Famotidine 20 mg 09/29/20 21:00 10/03/20 10:34 Famotidine/Pf 20 Mg/2 Ml Vial IVPUSH 20 mg BID EUSEBIO Administration Potassium Chloride 10 meq in 100 mls @ 100 mls/hr 10/03/20 10:30 10/03/20 10:35 IV 10/03/20 12:29 100 mls/hr Q1H EUSEBIO Administration Magnesium Sulfate 2 gm in 50 mls @ 25 mls/hr 10/03/20 11:19 IV 10/03/20 13:18 ONCE ONE Morphine Sulfate 2 mg 10/02/20 15:08 10/02/20 18:26 Morphine Sulfate 2 Mg/Ml Cartridge IVPUSH 2 mg Q6H PRN Administration Pain, Severe (Pain Scale 7-10) Ondansetron HCl 4 mg 09/29/20 16:30 Ondansetron Hcl 4 Mg/2 Ml Vial IVPUSH Q8H PRN Nausea and Vomiting Pharmacy Consult 1 each 09/29/20 10:47 Consult Rx Perform Med Rec MISCELLANE ONCE PRN Consult order Potassium Chloride 40 meq 10/03/20 10:30 10/03/20 10:53 Potassium Chloride Packet 20 Meq Packet PO 10/04/20 09:01 40 meq TID EUSEBIO Administration Risperidone 2 mg 09/29/20 21:00 10/03/20 10:34 Risperidone 2 Mg Tablet PO 2 mg BID EUSEBIO Administration Sodium Chloride 3 ml 09/29/20 16:30 10/03/20 07:32 0.9 % Sodium Chloride Flush 3 Ml Syringe IVFLUSH 3 ml QSHIFT EUSEBIO Administration Warfarin Sodium 7.5 mg 09/29/20 18:00 10/02/20 18:31 Warfarin Sodium 7.5 Mg Tablet PO Not Given DAILY@1800 [facility] Labs CBC & Chem 7: 10/01/20 05:17 10/03/20 08:07 Assessment and Plan (1) Anasarca: Status: Acute Assessment and Plan: 60-year-old male with history of heart failure with preserved ejection fraction, atrial fibrillation on Coumadin, severe mitral stenosis, schizophrenia, history of TBI who was brought by ambulance to the emergency department for shortness of breath initially thought to be secondary to anaphylaxis/ angioedema found to be in CHF acute on chronic right heart failure with preserved ejection fraction recurrent admissions for the same IV Bumex cardiology helping with management Alegre to monitor fluid status, low-sodium diet monitor weight and I/O avoid titrating BB due RV issues avoid CCB per card angioedema unclear precipitant, seems to have resolved atrial fibrillation rate seems --generally rate controlled when patient is not agitated. Continue BB. Continue Dig hypokalemia--2. 5 today, replace with IV and PO K, correct Magenesium as well. Repeat K at 2 pm Acute kidney injury ?cardiorenal/decreased perfusion, resolved monitor renal function closely abdominal pain--improved likely related to fluid overload should improve with diuresis no evidence of infection at this time thrombocytopenia chronic follow CBC schizophrenia continue risperidone, benztropine Low BP is better, off Midodrine as can worsen heart condition confusion/altered mental status--this has been an ongoing thing and is worsening..? due to acute illness, underlying congnitive impairment, check liver function and ammonia. His prognosis continue to be very bad.. DVT prophylaxis- coumadin this case was discussed with Dr. Cantrell
[2020-10-03 12:00] VITALS: BP 100/89; PULSE 68; RESP 18; TEMP 36.4; O2SAT 100
--- NOTE | 2020-10-03 12:18 | PC.NURSE ---
IV ACCESS NUMBER [id number] LEFT AC REMOVED,WAS LEAKING,APPEARED OUTDATED WITH SCANT YELLOW DRAINAGE. AREA CLINNED WITH ALCOHOL AND BETADINE,DSD APPLIED,SECURED WITH TEGADERM.
[2020-10-03] MEDS: Digoxin 0.125 MG TABLET PO (12:52)
[2020-10-03] MEDS: Magnesium Sulfate/H2O 2 GM/50 ML PIGGYBACK IV (12:52)
[2020-10-03 14:17] LABS: Anion Gap 16 (12-20); Carbon Dioxide 28 mmol/L (22-29); Chloride 98 mmol/L (96-108); Potassium 3.8 mmol/l (3.3-5.1); Sodium 138 mmol/L (135-145)
[2020-10-03 22:18] VITALS: BP 112/62; PULSE 69; RESP 17; TEMP 36.6; O2SAT 100
[2020-10-04] VITALS (7 sets, daily range): BP systolic 112–152; BP diastolic 66–82; PULSE 79–118; RESP 16–20; TEMP 36.6–37.1; O2SAT 98–100
[2020-10-04 08:57] LABS: Hematocrit 28.2 % (42-52); Hemoglobin 9.2 g/dl (14.0-18.0); Mean Corpuscular HGB Conc 32.6 g/dl (31.0-36.0); PLT CLUMP 1; Red Blood Count 4.59 X10*6/uL (4.60-5.80); Red Cell Distribution Width 20.3 % (11.0-16.0)
[2020-10-04 08:58] LABS: Mean Corpuscular Volume 61.4 fL (80-98); NRBC Pct Auto 1.4 /100WBC (0.0-0.2)
[2020-10-04 08:59] LABS: INTERNATIONAL NORM RATIO 3.1 (0.9-1.1); Prothrombin Time 37.2 SEC (10.8-13.0)
[2020-10-04 09:26] LABS: Platelet Count 116 X10*3/uL (160-400); White Blood Count 9.3 X10*3/uL (4.8-10.8)
--- NOTE | 2020-10-04 09:39 | P.PNCA_ITS ---
Subjective Subjective Interval history: Cardiology follow up for CHF exacerbation. Sleepy this am, moaning when I try to wake him. Breathing seems unlabored. Still has some anasarca but it is improving compared to prior days. Review of Systems Review of Systems Yes Unobtainable due to mental condition Physical Exam Vital Signs: Last Vital Signs Temp 98 F 10/04/20 07:48 Pulse 79 10/04/20 07:48 Resp 19 10/04/20 07:48 BP 152/74 H 10/04/20 07:48 Pulse Ox 98 10/04/20 07:48 Body Mass Index 23.8 Const Other: Sleepy, moans to attempt at waking him. No acute distress at present. HENMT Other: JVD to level of jaw Neck Carotids: carotid upstroke abnormal Resp Other: no cough, lungs with fine rales heard anteriorly upper lung jiang, more dim posterior lower lobes, no distinct rales posteriorly, some fine wheezes Effort & Inspection: normal respiratory effort Auscultation: no rhonchi Cardio Palpation: other (heart tones distant. Has known MS and TR, murmurs difficult to hear) GI Other: not distended, no facial grimace to palpation Other: Alegre cath in place, clear yellow urine Skin Other: Pitting edema of right arm, each sides of his chest stovall, legs less edematous General skin exam: no rashes or lesions noted Results Labs and Meds Result diagrams: 10/04/20 08:28 10/03/20 13:27 Lab results: Laboratory Results - last 24 hr 10/03/20 10/03/20 10/04/20 08:07 13:27 08:28 WBC 9.3 RBC 4.59 L Hgb 9.2 L Hct 28.2 L MCV 61.4 L MCH 20.0 L MCHC 32.6 RDW 20.3 H Plt Count 116 L MPV Not Reportable Absolute Nucleated RBC 0.130 H Nucleated RBC % (auto) 1.4 H PT INR Sodium 138 Potassium 3.8 D Chloride 98 Carbon Dioxide 28 Anion Gap 16 Magnesium 1.3 L* Crossmatch 10/04/20 10/04/20 08:28 08:33 WBC RBC Hgb Hct MCV MCH MCHC RDW Plt Count MPV Absolute Nucleated RBC Nucleated RBC % (auto) PT 37.2 H INR 3.1 H Sodium Potassium Chloride Carbon Dioxide Anion Gap Magnesium Crossmatch See Detail Progress Note: A&P Assessment and plan (1) CHF (congestive heart failure): Problem details: acute on chronic HFpEF Status: Acute Assessment and Plan: Continues to diurese well. Breathing seems more comfortable at present. Less edema, still has some pitting of right arm and lateral chest stovall. O2 sat 100% on RA. Fluid balance neg [id number] since admit. Echo had shown EF 50-55%, mod to severe TR, volume overload. Continue to diurese with IV Bumex. Strict I+O monitoring. Continue Alegre catheter for accurate I+O monitoring. Close monitori ng of electrolyte and kidney function. Electrolyte replacement as needed. Yesterday K was 2.5 and he did recieve supplement. Mag was 1.3 and he did recieve supplement. BMP and Mg ordered for this am. (2) Right ventricular failure: Status: Acute (3) Severe mitral valve stenosis: Status: Acute Assessment and Plan: Known hx severe MS. Not a surgical candidate due to dementia, TBI. Followed through our outpt office. (4) Anasarca: Status: Acute Assessment and Plan: Improving with diuresing. (5) Afib: Status: Acute Assessment and Plan: Chronic afib. Currently on Digoxin only for rate control. Tele showing afib rates 70-low 100s. Dig level 0.3 yesterday. Continue Digoxin. On coumadin for anticoagulation. INR goal 2-3. INR today 3.8. Coumadin is on hold. Plan to resume once INR in goal range. (6) Acute hypokalemia: Status: Acute Assessment and Plan: Treated with K supplements yesterday. Rechecking today. Fall Risk Details Current Medications: Current Medications Generic Name Dose Route Start Last Admin Trade Name Freq PRN Reason Stop Dose Admin Acetaminophen 650 mg 09/29/20 16:30 09/29/20 21:05 Acetaminophen 325 Mg Tablet PO 650 mg Q6H PRN Administration Pain, Mild (Pain Scale 1-3) Benztropine Mesylate 2 mg 09/29/20 21:00 10/03/20 22:17 Benztropine Mesylate 1 Mg Tablet PO 2 mg BID [facility] Administration Bumetanide 2 mg 09/29/20 18:30 10/03/20 22:14 Bumetanide 1 Mg/4 Ml Vial IVPUSH 2 mg BID EUSEBIO Administration Protocol Digoxin 0.125 mg 10/03/20 14:00 10/03/20 12:52 Digoxin 0.125 Mg Tablet PO 0.125 mg DAILY [facility] Administration Docusate Sodium 100 mg 09/29/20 16:30 09/29/20 17:27 Docusate Sodium 100 Mg Capsule PO 100 mg DAILY PRN Administration Constipation Famotidine 20 mg 09/29/20 21:00 10/03/20 22:18 Famotidine/Pf 20 Mg/2 Ml Vial IVPUSH 20 mg BID EUSEBIO Administration Morphine Sulfate 2 mg 10/02/20 15:08 10/02/20 18:26 Morphine Sulfate 2 Mg/Ml Cartridge IVPUSH 2 mg Q6H PRN Administration Pain, Severe (Pain Scale 7-10) Ondansetron HCl 4 mg 09/29/20 16:30 Ondansetron Hcl 4 Mg/2 Ml Vial IVPUSH Q8H PRN Nausea and Vomiting Pharmacy Consult 1 each 09/29/20 10:47 Consult Rx Perform Med Rec MISCELLANE ONCE PRN Consult order Risperidone 2 mg 09/29/20 21:00 10/03/20 22:18 Risperidone 2 Mg Tablet PO 2 mg BID EUSEBIO Administration Sodium Chloride 3 ml 09/29/20 16:30 10/03/20 23:33 0.9 % Sodium Chloride Flush 3 Ml Syringe IVFLUSH 3 ml QSHIFT [facility] Administration Warfarin Sodium 7.5 mg 09/29/20 18:00 10/02/20 18:31 Warfarin Sodium 7.5 Mg Tablet PO Not Given DAILY@1800 [facility] Time Spent With Patient Time: Total time spent is greater than 50% in coordination of care (as documented) at patient's floor/unit and/or counseling patient: 16 Time with patient: 15 - 24 minutes
[2020-10-04 09:45] LABS: Anion Gap 12 (12-20); Blood Urea Nitrogen 15 mg/dL (9-16); Calcium 7.5 mg/dL (8.4-10.2); Carbon Dioxide 33 mmol/L (22-29); Chloride 100 mmol/L (96-108); Estimated Glomerular Filt Rate > 60; Glucose Random 79 mg/dL (60-115); Magnesium 1.6 mg/dL (1.6-2.6); Potassium 3.5 mmol/l (3.3-5.1); Sodium 141 mmol/L (135-145)
[2020-10-04] MEDS: 0.9 % Sodium Chloride Flush 3 ML SYRINGE IVFLUSH ×2 (10:02→16:50)
[2020-10-04] MEDS: Potassium Chloride Packet 20 MEQ PACKET 40 MEQ PO ×2 (10:03→18:42)
[2020-10-04] MEDS: Digoxin 0.125 MG TABLET PO (10:03)
[2020-10-04] MEDS: risperiDONE 2 MG TABLET PO ×2 (10:03→20:39)
[2020-10-04] MEDS: Benztropine Mesylate 1 MG TABLET 2 MG PO ×2 (10:03→20:39)
[2020-10-04] MEDS: Bumetanide 1 MG/4 ML VIAL 2 MG IVPUSH ×2 (10:04→20:39)
[2020-10-04] MEDS: Famotidine/PF 20 MG/2 ML VIAL IVPUSH ×2 (10:04→20:39)
--- NOTE | 2020-10-04 12:01 | HO.PM.IMPN ---
Subjective Subjective Date of Service: 10/04/20 Interval History: f/u on CHF exacerbation. Overall better, sleepy in the morning but comfortable. Anasarc is visibly better Review of Systems gen: no fever cv: no chest pain, +scott Physical Exam Vital Signs: Vital Signs: Last Vital Signs Temp 98 F 10/04/20 11:33 Pulse 118 H 10/04/20 11:33 Resp 19 10/04/20 11:33 BP 120/82 10/04/20 11:33 Pulse Ox 100 10/04/20 11:33 Body Mass Index 23.8 General: more alert, less confused, less agitation Resp: rales at bases CVS: ireg, meenu 2+ leg edema GI: +BS, NT, no distention Skin: No rash Neuro: motor grossly intact, less confused Psych: flat affect Objective Data Current Medications Generic Name Dose Route Start Last Admin Trade Name Freq PRN Reason Stop Dose Admin Acetaminophen 650 mg 09/29/20 16:30 09/29/20 21:05 Acetaminophen 325 Mg Tablet PO 650 mg Q6H PRN Administration Pain, Mild (Pain Scale 1-3) Benztropine Mesylate 2 mg 09/29/20 21:00 10/04/20 10:03 Benztropine Mesylate 1 Mg Tablet PO 2 mg BID EUSEBIO Administration Bumetanide 2 mg 09/29/20 18:30 10/04/20 10:04 Bumetanide 1 Mg/4 Ml Vial IVPUSH 2 mg BID EUSEBIO Administration Protocol Digoxin 0.125 mg 10/03/20 14:00 10/04/20 10:03 Digoxin 0.125 Mg Tablet PO 0.125 mg DAILY [facility]SE[facility] Administration Docusate Sodium 100 mg 09/29/20 16:30 09/29/20 17:27 Docusate Sodium 100 Mg Capsule PO 100 mg DAILY PRN Administration Constipation Famotidine 20 mg 09/29/20 21:00 10/04/20 10:04 Famotidine/Pf 20 Mg/2 Ml Vial IVPUSH 20 mg BID EUSEBIO Administration Morphine Sulfate 2 mg 10/02/20 15:08 10/02/20 18:26 Morphine Sulfate 2 Mg/Ml Cartridge IVPUSH 2 mg Q6H PRN Administration Pain, Severe (Pain Scale 7-10) Ondansetron HCl 4 mg 09/29/20 16:30 Ondansetron Hcl 4 Mg/2 Ml Vial IVPUSH Q8H PRN Nausea and Vomiting Pharmacy Consult 1 each 09/29/20 10:47 Consult Rx Perform Med Rec MISCELLANE ONCE PRN Consult order Risperidone 2 mg 09/29/20 21:00 10/04/20 10:03 Risperidone 2 Mg Tablet PO 2 mg BID EUSEBIO Administration Sodium Chloride 3 ml 09/29/20 16:30 10/04/20 10:02 0.9 % Sodium Chloride Flush 3 Ml Syringe IVFLUSH 3 ml QSHIFT [facility] Administration Warfarin Sodium 7.5 mg 09/29/20 18:00 10/02/20 18:31 Warfarin Sodium 7.5 Mg Tablet PO Not Given DAILY@1800 [facility] Labs CBC & Chem 7: 10/04/20 08:28 10/04/20 08:28 Assessment and Plan (1) Anasarca: Status: Acute Assessment and Plan: 60-year-old male with history of heart failure with preserved ejection fraction, atrial fibrillation on Coumadin, severe mitral stenosis, schizophrenia, history of TBI who was brought by ambulance to the emergency department for shortness of breath initially thought to be secondary to anaphylaxis/ angioedema found to be in CHF acute on chronic right heart failure with preserved ejection fraction, anasarca recurrent admissions for the same making progress, thus far negative 11L IV Bumex cardiology helping with management Alegre to monitor fluid status, low-sodium diet monitor weight and I/O avoid titrating BB due RV issues avoid CCB per card keep eye on K angioedema unclear precipitant, seems to have resolved atrial fibrillation rate seems --generally rate controlled when patient is not agitated. Continue BB. Continue Dig hypokalemia--3.5 today, will give some today Acute kidney injury ?cardiorenal/decreased perfusion, resolved monitor renal function closely abdominal pain--improved likely related to fluid overload should improve with diuresis no evidence of infection at this time thrombocytopenia chronic follow CBC schizophrenia continue risperidone, benztropine Low BP is better, off Midodrine as can worsen heart condition confusion/altered mental status--this has been an ongoing thing and is worsening..? due to acute illness, underlying congnitive impairment, overall better DVT prophylaxis- coumadin this case was discussed with Dr. Cantrell
--- NOTE | 2020-10-04 15:39 | MHC.CM.PN ---
DP HOME WITH FAMILY VIA FAMILY TRANSPORT. PERMANENT [facility]IAN[facility] MEETING SCHEDULED FOR TODAY WILL BE RESCHEDULED.
[2020-10-04] MEDS: Magnesium Sulfate/H2O 2 GM/50 ML PIGGYBACK IV (18:43)
[2020-10-05] VITALS (8 sets, daily range): BP systolic 102–134; BP diastolic 61–85; PULSE 59–113; RESP 16–19; TEMP 35.8–36.7; O2SAT 97–100
[2020-10-05] MEDS: 0.9 % Sodium Chloride Flush 3 ML SYRINGE IVFLUSH ×4 (02:35→21:32)
--- NOTE | 2020-10-05 09:33 | PM.PNCARD ---
Subjective Subjective Interval history: f/u on CHF exacerbation. Sitting up, alert. No respiratory distress. Edema improving. Review of Systems Review of Systems Yes Unobtainable due to mental condition Physical Exam Vital Signs: Last Vital Signs Temp 98.0 F 10/05/20 08:00 Pulse 60 10/05/20 08:00 Resp 18 10/05/20 08:00 BP 124/85 10/05/20 08:00 Pulse Ox 98 10/05/20 08:00 Body Mass Index 23.8 Const Other: Awake, speech difficult to understand, unclear full orientation. Does report feeling weak. ZACARIAS, sitting on edge of bed. HENMT Other: Sitting, still has JVD present Neck Carotids: carotid upstroke abnormal Resp Other: less fine rales anteriorly, lungs posterior with dim bases Effort & Inspection: normal respiratory effort and not labored Auscultation: no rhonchi and no wheezes Cardio Other: Rapid and irregular Heart sounds: S1 normal heart sound present, S2 normal heart sound present and no murmurs GI Inspection: Yes normal to inspection Skin Other: Pitting edema of extremeties much improved. still has pitting edema to lateral chest stovall General skin exam: no rashes or lesions noted Results Labs and Meds Result diagrams: 10/04/20 08:28 10/04/20 08:28 Lab results: Laboratory Results - last 24 hr 10/04/20 10/04/20 08:28 08:33 Sodium 141 Potassium 3.5 Chloride 100 Carbon Dioxide 33 H Anion Gap 12 BUN 15 Creatinine 0.94 Estim Creat Clear Calc 80.0 Estimated GFR > 60 Random Glucose 79 Calcium 7.5 L D Magnesium 1.6 Blood Type B Positive Antibody Screen NEGATIVE Crossmatch See Detail Progress Note: A&P Assessment and plan (1) CHF (congestive heart failure): Problem details: acute on chronic HFpEF Status: Acute Assessment and Plan: Diuresing well. Condition gradually improving. Still has JVD and some pitting edema of lateral chest stovall. Breathing unlabored. Sat 98% on RA. No labs yet today for review. Fluid balance neg [id number] so far since admit. Continue IV Bumex through today. Can likely change to po Bumex tomorrow. Ongoing strict I+O monitoring, Close monitoring of electrolyte and kidney function. Electrolyte replacement as warranted. Increase mobility as tolerated. Recommend Home med mgt/ CHF education discussion with care providers prior to his discharge. (2) Right ventricular failure: Status: Acute (3) Severe mitral valve stenosis: Status: Acute Assessment and Plan: Known hx of severe MS. Not a candidate for surgical intervention due to dementia, TBI. Followed as outpt through our office (4) Afib: Status: Acute Assessment and Plan: Chronic afib. Tele showing Afib, rates up to 120s this am and up to 150 with activity. Is on Digoxin for rate control. Metoprolol had been held due to HF which is improving. Will restart Metoprolol tartrate 25mg bid. Continue Digoxin. Ongoing tele monitorin. On coumadin for anticoagulation. INR goal 2-3. Adjustments in dose managed by hospitalist. (5) Anasarca: Status: Acute (6) Acute hypokalemia: Status: Acute Assessment and Plan: Has had low K this admit, down to 2.5 which was treated with supplement. Recommend recheck today as he continues to recieve IV Bumex. Fall Risk Details Current Medications: Current Medications Generic Name Dose Route Start Last Admin Trade Name Freq PRN Reason Stop Dose Admin Acetaminophen 650 mg 09/29/20 16:30 09/29/20 21:05 Acetaminophen 325 Mg Tablet PO 650 mg Q6H PRN Administration Pain, Mild (Pain Scale 1-3) Benztropine Mesylate 2 mg 09/29/20 21:00 10/04/20 20:39 Benztropine Mesylate 1 Mg Tablet PO 2 mg BID EUSEBIO Administration Bumetanide 2 mg 09/29/20 18:30 10/04/20 20:39 Bumetanide 1 Mg/4 Ml Vial IVPUSH 2 mg BID EUSEBIO Administration Protocol Digoxin 0.125 mg 10/03/20 14:00 10/04/20 10:03 Digoxin 0.125 Mg Tablet PO 0.125 mg DAILY EUSEBIO Administration Docusate Sodium 100 mg 09/29/20 16:30 09/29/20 17:27 Docusate Sodium 100 Mg Capsule PO 100 mg DAILY PRN Administration Constipation Famotidine 20 mg 09/29/20 21:00 10/04/20 20:39 Famotidine/Pf 20 Mg/2 Ml Vial IVPUSH 20 mg BID EUSEBIO Administration Morphine Sulfate 2 mg 10/02/20 15:08 10/02/20 18:26 Morphine Sulfate 2 Mg/Ml Cartridge IVPUSH 2 mg Q6H PRN Administration Pain, Severe (Pain Scale 7-10) Ondansetron HCl 4 mg 09/29/20 16:30 Ondansetron Hcl 4 Mg/2 Ml Vial IVPUSH Q8H PRN Nausea and Vomiting Pharmacy Consult 1 each 09/29/20 10:47 Consult Rx Perform Med Rec MISCELLANE ONCE PRN Consult order Risperidone 2 mg 09/29/20 21:00 10/04/20 20:39 Risperidone 2 Mg Tablet PO 2 mg BID EUSEBIO Administration Sodium Chloride 3 ml 09/29/20 16:30 10/05/20 02:35 0.9 % Sodium Chloride Flush 3 Ml Syringe IVFLUSH 3 ml QSHIFT [facility] Administration Warfarin Sodium 7.5 mg 09/29/20 18:00 10/02/20 18:31 Warfarin Sodium 7.5 Mg Tablet PO Not Given DAILY@1800 [facility] Time Spent With Patient Time: Total time spent is greater than 50% in coordination of care (as documented) at patient's floor/unit and/or counseling patient: 15 Time with patient: 15 - 24 minutes
[2020-10-05] MEDS: Bumetanide 1 MG/4 ML VIAL 2 MG IVPUSH ×2 (09:54→21:28)
[2020-10-05] MEDS: Famotidine/PF 20 MG/2 ML VIAL IVPUSH ×2 (09:54→21:32)
[2020-10-05] MEDS: Benztropine Mesylate 1 MG TABLET 2 MG PO ×2 (09:54→21:30)
[2020-10-05] MEDS: risperiDONE 2 MG TABLET PO ×2 (09:54→21:30)
[2020-10-05] MEDS: Digoxin 0.125 MG TABLET PO (09:54)
--- NOTE | 2020-10-05 10:00 | HO.PM.IMPN ---
Subjective Subjective Date of Service: 10/05/20 Interval History: f/u on CHF exacerbation. Sitting up, alert. No respiratory distress. Edema improving. Review of Systems no sob no fever Physical Exam Vital Signs: Vital Signs: Last Vital Signs Temp 98.0 F 10/05/20 08:00 Pulse 60 10/05/20 08:00 Resp 18 10/05/20 08:00 BP 124/85 10/05/20 08:00 Pulse Ox 98 10/05/20 08:00 Body Mass Index 23.8 General: more alert, less confused, less agitation Resp: rales at bases CVS: ireg, meenu 2+ leg edema GI: +BS, NT, no distention Skin: No rash Neuro: motor grossly intact, less confused Psych: flat affect Objective Data Current Medications Generic Name Dose Route Start Last Admin Trade Name Freq PRN Reason Stop Dose Admin Acetaminophen 650 mg 09/29/20 16:30 09/29/20 21:05 Acetaminophen 325 Mg Tablet PO 650 mg Q6H PRN Administration Pain, Mild (Pain Scale 1-3) Benztropine Mesylate 2 mg 09/29/20 21:00 10/04/20 20:39 Benztropine Mesylate 1 Mg Tablet PO 2 mg BID EUSEBIO Administration Bumetanide 2 mg 09/29/20 18:30 10/04/20 20:39 Bumetanide 1 Mg/4 Ml Vial IVPUSH 2 mg BID EUSEBIO Administration Protocol Digoxin 0.125 mg 10/03/20 14:00 10/04/20 10:03 Digoxin 0.125 Mg Tablet PO 0.125 mg DAILY EUSE[facility] Administration Docusate Sodium 100 mg 09/29/20 16:30 09/29/20 17:27 Docusate Sodium 100 Mg Capsule PO 100 mg DAILY PRN Administration Constipation Famotidine 20 mg 09/29/20 21:00 10/04/20 20:39 Famotidine/Pf 20 Mg/2 Ml Vial IVPUSH 20 mg BID EUSEBIO Administration Morphine Sulfate 2 mg 10/02/20 15:08 10/02/20 18:26 Morphine Sulfate 2 Mg/Ml Cartridge IVPUSH 2 mg Q6H PRN Administration Pain, Severe (Pain Scale 7-10) Ondansetron HCl 4 mg 09/29/20 16:30 Ondansetron Hcl 4 Mg/2 Ml Vial IVPUSH Q8H PRN Nausea and Vomiting Pharmacy Consult 1 each 09/29/20 10:47 Consult Rx Perform Med Rec MISCELLANE ONCE PRN Consult order Risperidone 2 mg 09/29/20 21:00 10/04/20 20:39 Risperidone 2 Mg Tablet PO 2 mg BID EUSEBIO Administration Sodium Chloride 3 ml 09/29/20 16:30 10/05/20 02:35 0.9 % Sodium Chloride Flush 3 Ml Syringe IVFLUSH 3 ml QSHIFT [facility]SE[facility] Administration Warfarin Sodium 7.5 mg 09/29/20 18:00 10/02/20 18:31 Warfarin Sodium 7.5 Mg Tablet PO Not Given DAILY@1800 [facility] Labs CBC & Chem 7: 10/04/20 08:28 10/04/20 08:28 Assessment and Plan (1) Anasarca: Status: Acute Assessment and Plan: 60-year-old male with history of heart failure with preserved ejection fraction, atrial fibrillation on Coumadin, severe mitral stenosis, schizophrenia, history of TBI who was brought by ambulance to the emergency department for shortness of breath initially thought to be secondary to anaphylaxis/ angioedema found to be in CHF acute on chronic right heart failure with preserved ejection fraction, anasarca recurrent admissions for the same making progress, thus far negative 11L IV Bumex probably change to PO today cardiology helping with management Alegre to monitor fluid status, low-sodium diet monitor weight and I/O restarting low dose BB avoid CCB per card keep eye on K angioedema unclear precipitant, seems to have resolved atrial fibrillation rate seems --generally rate controlled when patient is not agitated. Continue BB. Continue Dig hypokalemia--3.5 today, will give some today Acute kidney injury ?cardiorenal/decreased perfusion, resolved monitor renal function closely abdominal pain--improved likely related to fluid overload should improve with diuresis no evidence of infection at this time thrombocytopenia chronic follow CBC schizophrenia continue risperidone, benztropine Low BP is better, off Midodrine as can worsen heart condition confusion/altered mental status--this has been an ongoing thing and is worsening..? due to acute illness, underlying congnitive impairment, overall better DVT prophylaxis- coumadin this case was discussed with Dr. Cantrell
[2020-10-05 11:27] LABS: Anion Gap 15 (12-20); Blood Urea Nitrogen 15 mg/dL (9-16); Calcium 7.6 mg/dL (8.4-10.2); Carbon Dioxide 30 mmol/L (22-29); Chloride 96 mmol/L (96-108); Creatinine Clr Calc Pharmacy 83.6; Estimated Glomerular Filt Rate > 60; Glucose Random 105 mg/dL (60-115); Potassium 3.8 mmol/l (3.3-5.1); Sodium 137 mmol/L (135-145)
[2020-10-05 11:39] LABS: INTERNATIONAL NORM RATIO 2.2 (0.9-1.1); Prothrombin Time 26.6 SEC (10.8-13.0)
[2020-10-05] MEDS: Metoprolol Tartrate 25 MG TABLET PO ×2 (11:48→21:30)
[2020-10-05] MEDS: Warfarin Sodium 7.5 MG TABLET PO (19:49)
[2020-10-06] VITALS (7 sets, daily range): BP systolic 90–145; BP diastolic 59–83; PULSE 62–112; RESP 14–20; TEMP 35.8–36.6; O2SAT 93–98
[2020-10-06] MEDS: Morphine Sulfate 2 MG/ML CARTRIDGE IVPUSH (01:47)
[2020-10-06] MEDS: Metoprolol Tartrate 25 MG TABLET PO (08:44)
[2020-10-06] MEDS: Famotidine/PF 20 MG/2 ML VIAL IVPUSH ×2 (08:45→21:12)
[2020-10-06] MEDS: risperiDONE 2 MG TABLET PO ×2 (08:45→21:12)
[2020-10-06] MEDS: Benztropine Mesylate 1 MG TABLET 2 MG PO ×2 (08:45→21:12)
[2020-10-06] MEDS: Digoxin 0.125 MG TABLET PO (08:45)
[2020-10-06] MEDS: Bumetanide 1 MG/4 ML VIAL 2 MG IVPUSH (08:45)
[2020-10-06] MEDS: 0.9 % Sodium Chloride Flush 3 ML SYRINGE IVFLUSH ×2 (08:45→16:12)
[2020-10-06 09:11] LABS: INTERNATIONAL NORM RATIO 1.9 (0.9-1.1); Prothrombin Time 22.4 SEC (10.8-13.0)
--- NOTE | 2020-10-06 09:47 | P.PNIM_ITS ---
Subjective Subjective Date of Service: 10/06/20 Interval History: f/u on CHF exacerbation. Sitting up, alert. No respiratory distress. He's at his baseline Review of Systems Review of Systems: Yes Unobtainable due to mental status Physical Exam Vital Signs: Vital Signs: Last Vital Signs Temp 97.7 F 10/06/20 07:36 Pulse 84 10/06/20 07:36 Resp 20 10/06/20 07:36 BP 116/77 10/06/20 07:36 Pulse Ox 98 10/06/20 07:36 General: more alert, less confused, less agitation Resp: rales at bases CVS: ireg, meenu 2+ leg edema GI: +BS, NT, no distention Skin: No rash Neuro: motor grossly intact, less confused Psych: flat affect Objective Data Current Medications Generic Name Dose Route Start Last Admin Trade Name Freq PRN Reason Stop Dose Admin Acetaminophen 650 mg 09/29/20 16:30 09/29/20 21:05 Acetaminophen 325 Mg Tablet PO 650 mg Q6H PRN Administration Pain, Mild (Pain Scale 1-3) Benztropine Mesylate 2 mg 09/29/20 21:00 10/06/20 08:45 Benztropine Mesylate 1 Mg Tablet PO 2 mg BID EUSEBIO Administration Bumetanide 2 mg 09/29/20 18:30 10/06/20 08:45 Bumetanide 1 Mg/4 Ml Vial IVPUSH 2 mg BID EUSEBIO Administration Protocol Digoxin 0.125 mg 10/03/20 14:00 10/06/20 08:45 Digoxin 0.125 Mg Tablet PO 0.125 mg DAILY [facility] Administration Docusate Sodium 100 mg 09/29/20 16:30 09/29/20 17:27 Docusate Sodium 100 Mg Capsule PO 100 mg DAILY PRN Administration Constipation Famotidine 20 mg 09/29/20 21:00 10/06/20 08:45 Famotidine/Pf 20 Mg/2 Ml Vial IVPUSH 20 mg BID EUSEBIO Administration Metoprolol Tartrate 25 mg 10/05/20 10:15 10/06/20 08:44 Metoprolol Tartrate 25 Mg Tablet PO 25 mg BID EUSE[facility] Administration Protocol Morphine Sulfate 2 mg 10/02/20 15:08 10/06/20 01:47 Morphine Sulfate 2 Mg/Ml Cartridge IVPUSH 2 mg Q6H PRN Administration Pain, Severe (Pain Scale 7-10) Ondansetron HCl 4 mg 09/29/20 16:30 Ondansetron Hcl 4 Mg/2 Ml Vial IVPUSH Q8H PRN Nausea and Vomiting Pharmacy Consult 1 each 09/29/20 10:47 Consult Rx Perform Med Rec MISCELLANE ONCE PRN Consult order Risperidone 2 mg 09/29/20 21:00 10/06/20 08:45 Risperidone 2 Mg Tablet PO 2 mg BID EUSE[facility] Administration Sodium Chloride 3 ml 09/29/20 16:30 10/06/20 08:45 0.9 % Sodium Chloride Flush 3 Ml Syringe IVFLUSH 3 ml QSHIFT [facility] Administration Warfarin Sodium 7.5 mg 09/29/20 18:00 10/05/20 19:49 Warfarin Sodium 7.5 Mg Tablet PO 7.5 mg DAILY@1800 [facility] Administration Labs CBC & Chem 7: 10/04/20 08:28 10/08/20 08:52 Assessment and Plan (1) Anasarca: Status: Acute (2) Afib: Status: Acute Assessment and Plan: 60-year-old male with history of heart failure with preserved ejection fraction, atrial fibrillation on Coumadin, severe mitral stenosis, schizophrenia, history of TBI who was brought by ambulance to the emergency department for shortness of breath initially thought to be secondary to anaphylaxis/ angioedema found to be in CHF acute on chronic right heart failure with preserved ejection fraction, a nasarca--seems compensated no recurrent admissions for the same making progress, thus far negative 16.3 L IV Bumex to PO Bumex toda cardiology helping with management Alegre to monitor fluid status, low-sodium diet monitor weight and I/O low dose BB avoid CCB per card keep eye on K, Mag angioedema unclear precipitant, seems to have resolved atrial fibrillation rate seems --generally rate controlled when patient is not agitated. Continue BB. Continue Dig. Contineu coumadin hypokalemia--3. today, will give some today Acute kidney injury ?cardiorenal/decreased perfusion, resolved monitor renal function closely abdominal pain--improved likely related to fluid overload should improve with diuresis no evidence of infection at this time thrombocytopenia chronic follow CBC schizophrenia continue risperidone, benztropine Low BP is better, off Midodrine as can worsen heart condition, BP has been better confusion: at baseline now with chroic schizophrenia and probable early dementia DVT prophylaxis- coumadin
[2020-10-06 10:22] LABS: Anion Gap 16 (12-20); Blood Urea Nitrogen 14 mg/dL (9-16); Calcium 8.2 mg/dL (8.4-10.2); Carbon Dioxide 27 mmol/L (22-29); Chloride 96 mmol/L (96-108); Creatinine Clr Calc Pharmacy 79.2; Estimated Glomerular Filt Rate > 60; Glucose Random 102 mg/dL (60-115); Magnesium 1.7 mg/dL (1.6-2.6); Potassium 3.6 mmol/l (3.3-5.1); Sodium 135 mmol/L (135-145)
[2020-10-06] MEDS: ondansetron HCL 4 MG/2 ML VIAL IVPUSH (17:25)
[2020-10-06] MEDS: Bumetanide 1 MG TABLET 2 MG PO (17:25)
[2020-10-06] MEDS: Warfarin Sodium 7.5 MG TABLET PO (17:25)
[2020-10-07 03:49] VITALS: BP 90/65; PULSE 95; RESP 18; TEMP 36.8; O2SAT 98
[2020-10-07] MEDS: 0.9 % Sodium Chloride Flush 3 ML SYRINGE IVFLUSH ×3 (04:32→17:21)
[2020-10-07 04:37] LABS: Glucose, Whole Blood 94 mg/dL (60-115)
[2020-10-07 07:02] VITALS: BP 96/60; PULSE 97; RESP 18; TEMP 36.6; O2SAT 96
[2020-10-07 09:30] VITALS: BP 120/72; PULSE 96
[2020-10-07] MEDS: Metoprolol Succinate ER 12.5 MG HALFTAB.ER.24H PO (09:30)
[2020-10-07] MEDS: Digoxin 0.125 MG TABLET PO (09:30)
[2020-10-07] MEDS: Bumetanide 1 MG TABLET 2 MG PO ×2 (09:30→17:21)
[2020-10-07] MEDS: Famotidine/PF 20 MG/2 ML VIAL IVPUSH ×2 (09:30→22:04)
[2020-10-07] MEDS: risperiDONE 2 MG TABLET PO ×2 (09:30→22:06)
[2020-10-07] MEDS: Benztropine Mesylate 1 MG TABLET 2 MG PO ×2 (09:31→22:05)
[2020-10-07 10:01] LABS: INTERNATIONAL NORM RATIO 2.8 (0.9-1.1); Prothrombin Time 33.7 SEC (10.8-13.0)
[2020-10-07 10:18] LABS: Anion Gap 12 (12-20); Blood Urea Nitrogen 18 mg/dL (9-16); C Reactive Protein 5.05 mg/dL (< or = 0.50); Carbon Dioxide 34 mmol/L (22-29); Chloride 96 mmol/L (96-108); Estimated Glomerular Filt Rate > 60; Glucose Random 83 mg/dL (60-115); Magnesium 1.5 mg/dL (1.6-2.6); Potassium 3.5 mmol/l (3.3-5.1); Sodium 138 mmol/L (135-145)
[2020-10-07 11:02] VITALS: BP 104/70; PULSE 82; RESP 19; TEMP 35.9; O2SAT 100
[2020-10-07 11:26] LABS: Erythrocyte Sedimentation Rate 13 MM/HR (0-15)
--- NOTE | 2020-10-07 11:34 | P.PNCA_ITS ---
Subjective Subjective Interval history: f/u on CHF exacerbation. Sitting up, Somnolent. denies any shortness of breath. Denies any palpitations. Complains of pain in the penis Review of Systems Review of Systems Yes Other ( difficult to obtain as patient drifts off to asleep) Constitutional: Reports malaise and Reports weakness Eyes: Reports no additional eye complaints Cardiovascular: Reports Abdominal Distension, Denies rapid heart rate, Denies leg edema, Denies dyspnea and Denies orthopnea Respiratory: Reports no additional respiratory complaints and Denies dyspnea Genitourinary: Reports genital pain Reports system reviewed and no additional complaints, except as documented, Reports confusion and Reports weakness Psychiatric: Reports confusion Physical Exam Vital Signs: Last Vital Signs Temp 96.7 F L 10/07/20 11:02 Pulse 82 10/07/20 11:02 Resp 19 10/07/20 11:02 BP 104/70 10/07/20 11:02 Pulse Ox 100 10/07/20 11:02 Body Mass Index 23.8 Const General: comfortable, no acute distress, confusion and ill appearing Nutritional Appearance: cachectic Orientation/consciousness: confusion HENMT Head: Yes normocephalic and Yes atraumatic Neck Neck: Yes trachea midline, Yes supple and Yes JVD ( prominent V-waves due to TR) Chest Chest palpation & inspection: normal inspection of the chest Resp Effort & Inspection: decreased respiratory effort Auscultation: no rales and diminished lung sounds Cardio Palpation: abnormal PMI displaced PMI and heave Rhythm: abnormal rhythm irregularly irregular Heart sounds: S1 normal heart sound present, S2 normal heart sound present and Murmur heart sound present diastolic holo and at the apex GI Inspection: Yes normal to inspection and Yes distended Auscultation: Hypoactive bowel sounds present Skin General skin exam: ecchymosis Neuro General: no focal motor deficits and confusion Speech: Other speech findings present (Neuro) Extrem General: No edema Psych Speech and movement: Slurred speech present Affect: Depressed mood present Results Labs and Meds Result diagrams: 10/04/20 08:28 10/07/20 08:58 Lab results: Laboratory Results - last 24 hr 10/07/20 10/07/20 10/07/20 04:32 08:54 08:58 ESR 13 PT 33.7 H D INR 2.8 H Sodium Potassium Chloride Carbon Dioxide Anion Gap BUN Creatinine Estim Creat Clear Calc Estimated GFR POC Glucose 94 Random Glucose Calcium Magnesium C-Reactive Protein 10/07/20 10/07/20 08:58 08:59 ESR PT INR Sodium 138 Cancelled Potassium 3.5 Cancelled Chloride 96 Cancelled Carbon Dioxide 34 H Cancelled Anion Gap 12 Cancelled BUN 18 H Cancelled Creatinine 1.09 Cancelled Estim Creat Clear Calc 69.0 Cancelled Estimated GFR > 60 Cancelled POC Glucose Random Glucose 83 Cancelled Calcium 8.0 L Cancelled Magnesium 1.5 L Cancelled C-Reactive Protein 5.05 H Progress Note: A&P Assessment and plan (1) Right ventricular failure: Status: Acute Assessment and Plan: severe right heart failure with RV enlargement and failure secondary to severe mitral stenosis. In the past as not being considered to be a candidate for mi tral valve intervention due to psychosocial issues. Currently today appears to be clinically euvolemic and well compensated. He has diuresed overall 17 L. not sure as to the reason for decompensation this time, related to social factors. Agree with switch to p.o. Bumex. Plan for discharge. Heart failure education should be provided. PT consult should be considered. Will sign of the case at current time. (2) Severe mitral valve stenosis: Status: Acute Assessment and Plan: Severe rheumatic mitral stenosis, causing heart failure syndrome. In the past as not been considered a candidate for mitral valve intervention. Continue Coumadin with target INR between 2 and 3. SBE prophylaxis as per ACC/ aha guidelines. Prognosis is guarded (3) Afib: Status: Acute Assessment and Plan: currently rate control on low-dose metoprolol and digoxin. Blood pressure is well optimized. Continue Coumadin with target INR between 2 and 3. Fall Risk Details Current Medications: Current Medications Generic Name Dose Route Start Last Admin Trade Name Freq PRN Reason Stop Dose Admin Acetaminophen 650 mg 09/29/20 16:30 09/29/20 21:05 Acetaminophen 325 Mg Tablet PO 650 mg Q6H PRN Administration Pain, Mild (Pain Scale 1-3) Benztropine Mesylate 2 mg 09/29/20 21:00 10/07/20 09:31 Benztropine Mesylate 1 Mg Tablet PO 2 mg BID EUSEBIO Administration Bumetanide 2 mg 10/06/20 17:00 10/07/20 09:30 Bumetanide 1 Mg Tablet PO 2 mg BID@0800,1700 EUSEBIO Administration Protocol Digoxin 0.125 mg 10/03/20 14:00 10/07/20 09:30 Digoxin 0.125 Mg Tablet PO 0.125 mg DAILY EUSEBIO Administration Docusate Sodium 100 mg 09/29/20 16:30 09/29/20 17:27 Docusate Sodium 100 Mg Capsule PO 100 mg DAILY PRN Administration Constipation Famotidine 20 mg 09/29/20 21:00 10/07/20 09:30 Famotidine/Pf 20 Mg/2 Ml Vial IVPUSH 20 mg BID EUSEBIO Administration Metoprolol Succinate 12.5 mg 10/07/20 09:00 10/07/20 09:30 Metoprolol Succinate Er 12.5 Mg Halftab.Er.24h PO 12.5 mg DAILY EUSEBIO Administration Protocol Morphine Sulfate 2 mg 10/02/20 15:08 10/06/20 01:47 Morphine Sulfate 2 Mg/Ml Cartridge IVPUSH 2 mg Q6H PRN Administration Pain, Severe (Pain Scale 7-10) Ondansetron HCl 4 mg 09/29/20 16:30 10/06/20 17:25 Ondansetron Hcl 4 Mg/2 Ml Vial IVPUSH 4 mg Q8H PRN Administration Nausea and Vomiting Pharmacy Consult 1 each 09/29/20 10:47 Consult Rx Perform Med Rec MISCELLANE ONCE PRN Consult order Risperidone 2 mg 09/29/20 21:00 10/07/20 09:30 Risperidone 2 Mg Tablet PO 2 mg BID EUSEBIO Administration Sodium Chloride 3 ml 09/29/20 16:30 10/07/20 09:31 0.9 % Sodium Chloride Flush 3 Ml Syringe IVFLUSH 3 ml QSHIFT EUSEBIO Administration Warfarin Sodium 7.5 mg 09/29/20 18:00 10/06/20 17:25 Warfarin Sodium 7.5 Mg Tablet PO 7.5 mg DAILY@1800 EUSEBIO Administration Time Spent With Patient Time: Total time spent is greater than 50% in coordination of care (as documented) at patient's floor/unit and/or counseling patient: Time with patient: 25 - 35 minutes
--- NOTE | 2020-10-07 13:01 | MHC.CM.PN ---
PT WILL BE DCD HOME WHEN MEDICALLY STABLE WILL BE FOLLOWED BY [facility]
--- NOTE | 2020-10-07 13:02 | MHC.CM.PN ---
PER ROUNDS DC EXPECTED TOWARD THE END OF THE WEEK ?STR PENDING PT EVAL
[2020-10-07 15:17] VITALS: BP 109/62; PULSE 102; RESP 18; TEMP 36.7; O2SAT 96
--- NOTE | 2020-10-07 16:50 | HO.PM.IMPN ---
Subjective Subjective Date of Service: 10/07/20 Interval History: Only c/o is of vague dysuria which he says has been present for a month. Denies dyspnea or edema but not a very reliable historian due to chronic mental illness. Physical Exam Vital Signs: Vital Signs: Last Vital Signs Temp 98.1 F 10/07/20 15:17 Pulse 102 H 10/07/20 15:17 Resp 18 10/07/20 15:17 BP 109/62 10/07/20 15:17 Pulse Ox 96 10/07/20 15:17 Body Mass Index 23.8 Const: General: cooperative and no acute distress Chest: Chest palpation & inspection: normal inspection of the chest Resp: Effort & Inspection: normal respiratory effort Auscultation: clear to auscultation bilaterally Cardio: Rate: Other (irregular) Rhythm: other GI: Palpation (GI): Soft to palpation and nontender Extrem: General: No edema Objective Data Current Medications Generic Name Dose Route Start Last Admin Trade Name Freq PRN Reason Stop Dose Admin Acetaminophen 650 mg 09/29/20 16:30 09/29/20 21:05 Acetaminophen 325 Mg Tablet PO 650 mg Q6H PRN Administration Pain, Mild (Pain Scale 1-3) Benztropine Mesylate 2 mg 09/29/20 21:00 10/07/20 09:31 Benztropine Mesylate 1 Mg Tablet PO 2 mg BID EUSEBIO Administration Bumetanide 2 mg 10/06/20 17:00 10/07/20 09:30 Bumetanide 1 Mg Tablet PO 2 mg BID@0800,1700 EUSEBIO Administration Protocol Digoxin 0.125 mg 10/03/20 14:00 10/07/20 09:30 Digoxin 0.125 Mg Tablet PO 0.125 mg DAILY EUSEBIO Administration Docusate Sodium 100 mg 09/29/20 16:30 09/29/20 17:27 Docusate Sodium 100 Mg Capsule PO 100 mg DAILY PRN Administration Constipation Famotidine 20 mg 09/29/20 21:00 10/07/20 09:30 Famotidine/Pf 20 Mg/2 Ml Vial IVPUSH 20 mg BID EUSEBIO Administration Metoprolol Succinate 12.5 mg 10/07/20 09:00 10/07/20 09:30 Metoprolol Succinate Er 12.5 Mg Halftab.Er.24h PO 12.5 mg DAILY EUSEBIO Administration Protocol Ondansetron HCl 4 mg 09/29/20 16:30 10/06/20 17:25 Ondansetron Hcl 4 Mg/2 Ml Vial IVPUSH 4 mg Q8H PRN Administration Nausea and Vomiting Pharmacy Consult 1 each 09/29/20 10:47 Consult Rx Perform Med Rec MISCELLANE ONCE PRN Consult order Risperidone 2 mg 09/29/20 21:00 10/07/20 09:30 Risperidone 2 Mg Tablet PO 2 mg BID EUSEBIO Administration Sodium Chloride 3 ml 09/29/20 16:30 10/07/20 09:31 0.9 % Sodium Chloride Flush 3 Ml Syringe IVFLUSH 3 ml QSHIFT EUSEBIO Administration Warfarin Sodium 7.5 mg 09/29/20 18:00 10/06/20 17:25 Warfarin Sodium 7.5 Mg Tablet PO 7.5 mg DAILY@1800 EUSEBIO Administration Labs CBC & Chem 7: 10/04/20 08:28 10/07/20 08:58 Assessment and Plan (1) Anasarca: Status: Acute Assessment and Plan: hospital d#9 60yo M with R-sided HF, AF on warfarin, sev mitral stenosis, schizophrenia, hx TBI brought in for possible angioedema but found to be in CHF # R-sided HF, acute/chronic - diuresed -18L this admission, changed IV to PO bumetanide - continue B-tammy, digoxin - appears euvolemic now # AF - rate controlled on metoprolol + digoxin - anticoagulated with warfarin and INR therapeutic # possible angioedema - unclear cause, not on an ROBBY-I, will check C4/ESR/CRP and refer to allergy as outpt # hypoK - repleted # RUDY - resolved, likely was cardiorenal # abd pain - likely due to cardiac ascites, resolved # thrombocytopenia - mild, resolved # schizophrenia - continue risperidone, benztropine # dispo - unfortunately no payor source for STR so best option is home with community navigator
[2020-10-07] MEDS: Warfarin Sodium 7.5 MG TABLET PO (17:21)
[2020-10-07 19:14] VITALS: BP 106/75; PULSE 94; RESP 18; TEMP 37.2; O2SAT 98
[2020-10-08] VITALS: BP 104/62; PULSE 96; RESP 18; TEMP 36.1; O2SAT 99
[2020-10-08] MEDS: 0.9 % Sodium Chloride Flush 3 ML SYRINGE IVFLUSH ×2 (00:14→09:05)
[2020-10-08 03:07] VITALS: BP 114/86; PULSE 104; RESP 16; TEMP 36.1; O2SAT 99
[2020-10-08 07:17] LABS: INTERNATIONAL NORM RATIO 3.7 (0.9-1.1); Prothrombin Time 45.1 SEC (10.8-13.0)
[2020-10-08 07:40] VITALS: BP 118/73; PULSE 97; RESP 20; TEMP 36.2; O2SAT 100
[2020-10-08] MEDS: risperiDONE 2 MG TABLET PO (09:05)
[2020-10-08] MEDS: Benztropine Mesylate 1 MG TABLET 2 MG PO (09:05)
[2020-10-08] MEDS: Bumetanide 1 MG TABLET 2 MG PO (09:05)
[2020-10-08 09:07] VITALS: BP 118/73; PULSE 97
[2020-10-08] MEDS: Digoxin 0.125 MG TABLET PO (09:07)
[2020-10-08] MEDS: Famotidine/PF 20 MG/2 ML VIAL IVPUSH (09:07)
[2020-10-08] MEDS: Metoprolol Succinate ER 12.5 MG HALFTAB.ER.24H PO (09:07)
[2020-10-08 09:27] LABS: Anion Gap 10 (12-20); Blood Urea Nitrogen 17 mg/dL (9-16); Calcium 8.1 mg/dL (8.4-10.2); Carbon Dioxide 36 mmol/L (22-29); Chloride 95 mmol/L (96-108); Creatinine Clr Calc Pharmacy 76.8; Estimated Glomerular Filt Rate > 60; Glucose Random 99 mg/dL (60-115); Magnesium 1.5 mg/dL (1.6-2.6); Potassium 3.7 mmol/l (3.3-5.1); Sodium 137 mmol/L (135-145)
--- NOTE | 2020-10-08 10:21 | PC.NURSE ---
Alegre removed at 1020 with minimal discomfort - patient due to void by 1620. Will continue to monitor.
[2020-10-08 11:20] VITALS: BP 109/77; PULSE 89; RESP 20; TEMP 36.8; O2SAT 98
--- NOTE | 2020-10-08 12:32 | PM.DS ---
DS: Providers Provider Date of admission: 09/29/20 12:33 Primary care physician: Rajan Brown MD Consults: 09/29/20 16:30 Consult to Cardiology Routine Consulting Provider: Kobe Melo Reason for consultation: chf Has provider been notified: No DS: Diagnosis Discharge Diagnosis (1) Anasarca: Status: Acute (2) Right ventricular failure: Status: Acute (3) Severe mitral valve stenosis: Status: Acute (4) Angioedema: Status: Acute (5) Acute hypokalemia: Status: Acute (6) Afib: Status: Acute (7) CHF (congestive heart failure): Status: Acute Problem details: acute on chronic HFpEF DS: Summary Hospital Course Hospital Course: The patient was admitted to the [facility] for decompensated heart failure. He was diuresed with IV bumetanide and transitioned to oral bumetanide at increased frequency from his home dose. Beta-tammy dosage was decreased due to soft blood pressure. He was continued on digoxin. As for atrial fibrillation, he was rate controlled on metoprolol and digoxin. Warfarin was continued; INR was supratherapeutic on the day of discharge and will need to be recheck daily unil it is less than 3 then resumed. As far possible angioedema, history is unclear and there is no known precipitant; he is not on an ROBBY-inhibitor. C4 level was checked and is pending at the time of discharge. He was started on cetirizine and prescribed an EpiPen; he should be referred to an construction site manager as an outpatient. Low potassium was repleted. Acute kidney injury on admission resolved with diuresis and was likely due to cardiorenal syndrome. Abdominal discomfort was attributed to cardiac ascites and resolved with diuresis. Unfortunately, due to limited insurance, there is no payor source for rehabilitation or visiting nursing services. He was discharged home with community navigator to follow-up. Time Spent with Patient Time attestation: Total time spent providing and/or coordinating discharge services: 40 Physical Exam Vital Signs: Vital Signs: Last Vital Signs Temp 98.2 F 10/08/20 11:20 Pulse 89 10/08/20 11:20 Resp 20 10/08/20 11:20 BP 109/77 10/08/20 11:20 Pulse Ox 98 10/08/20 11:20 Body Mass Index 23.8 Const: General: cooperative and no acute distress Chest: Chest palpation & inspection: normal inspection of the chest Resp: Effort & Inspection: normal respiratory effort Auscultation: clear to auscultation bilaterally Cardio: Rate: Other (irregular) Rhythm: other GI: Palpation (GI): Soft to palpation and nontender Extrem: General: No edema DS: Data Data Completed and Pending Labs on day of discharge: Laboratory Results - last 24 hr 10/04/20 10/07/20 10/08/20 08:33 08:58 06:06 PT 45.1 H D INR 3.7 H Sodium Potassium Chloride Carbon Dioxide Anion Gap BUN Creatinine Estim Creat Clear Calc Estimated GFR Random Glucose Calcium Magnesium Complement C4 21 Crossmatch See Detail 10/08/20 08:52 PT INR Sodium 137 Potassium 3.7 Chloride 95 L Carbon Dioxide 36 H Anion Gap 10 L BUN 17 H Creatinine 0.98 Estim Creat Clear Calc 76.8 Estimated GFR > 60 Random Glucose 99 Calcium 8.1 L Magnesium 1.5 L Complement C4 Crossmatch Discharge Plan Discharge Patient Disposition: Home Health Service Referrals: Brett Lewis DO [Physician] - Rajan Brown MD [Physician] - Kelvin Johnson MD [Physician] - Physician,Unknown [Primary Care Provider] - Jasper Campuzano [Physician] - (question of angioedema ) Discharge Medications: New metoprolol succinate 25 mg tablet extended release 24 hr 12.5 mg PO DAILY Qty: 15 RF: 1 bumetanide 1 mg Tablet 2 mg PO BID@0800,1700 Qty: 60 RF: 0 cetirizine 10 mg tablet 10 mg PO DAILY Qty: 30 RF: 0 epinephrine [EpiPen 2-Sumeet] 0.3 mg/0.3 mL auto-injector 0.3 mg IM Q10M PRN (Reason: anaphylaxis) Qty: 2 RF: 0 Continued omeprazole 40 mg Capsule,Delayed Release(Dr/Ec) 40 mg PO DAILY RF: 0 risperidone 2 mg Tablet 2 mg PO BID RF: 0 benztropine 2 mg Tablet 2 mg PO BID RF: 0 digoxin [Digitek] 125 mcg (0.125 mg) Tablet 125 mcg PO DAILY RF: 0 Held warfarin 7.5 mg Tablet 7.5 mg PO DAILY RF: 0 Hold Instructions: Resume on 10/10/20. hold until INR is <3, then resume Discontinued midodrine 5 mg Tablet 5 mg PO TID RF: 0 metoprolol tartrate 25 mg Tablet 25 mg PO BID RF: 0 bumetanide 2 mg tablet 2 mg PO DAILY Qty: 60 RF: 0 Discharge Orders: Discharge Order (Routine); Ordered 10/08/20 Ordered By: Jayson Lopez Diet: low salt diet Activity on Discharge: As tolerated Patient Instructions: Bumetanide (By mouth), Heart Failure (DC) Stand Alone Forms: Community Support Other Ambulatory Orders: Prothrombin Time INR (DAILY) Timeframe: 20201010 Facility: [facility] - Location: Laboratory Ordered By: Jayson Lopez Prothrombin Time INR (DAILY) Timeframe: 20201011 Facility: [facility] - Location: Laboratory Ordered By: Jayson Lopez Prothrombin Time INR (DAILY) Timeframe: 20201012 Facility: [facility] - Location: Laboratory Ordered By: Jayson Lopez Visit Report Forms: Patient Portal Discharge page Care Plan Goals: relief of swelling Health Concerns: heart failure, atrial fibrillation, possible angioedema Plan of Treatment: heart failure: bumetanide increased to 2 mg twice daily. limit sodium to 2000 mg/day. atrial fibrillation: metoprolol tartrate dose reduced to 12.5 mg daily. CHECK INR DAILY UNTIL <3 then resume warfarin at prior dosing. continue digoxin. follow up with Dr Johnson [place]] in 2 weeks. possible angioedema: follow up with Allergy [referred]. pending laboratory study: C4 level. Epi-pen prescribed in case of difficulty breathing. take cetirizine 10 mg daily.
--- NOTE | 2020-10-08 12:46 | MHC.CM.PN ---
pt dcd home with community navigation and daily inr thru [facility] pt lives with family
--- NOTE | 2020-10-08 12:52 | MHC.CM.PN ---
guardianship paperwork printed and placed in medical record
== END 2020-10-08 14:21 | disposition home health service (06) | DRG 194 ==
LOC: HO.ED 12:41 → HO.IMC 15:24
PROVIDERS: Internal Medicine; Nurse Practitioner Family; Physician Assistant Medical; Admitting Provider Hospitalist; Emergency Provider Emergency Medicine; Visit Provider Family Medicine
DX: I50.33 Acute on chronic diastolic (congestive) heart failure (principal); I95.89 Other hypotension; N17.9 Acute kidney failure, unspecified; D69.6 Thrombocytopenia, unspecified; F20.9 Schizophrenia, unspecified; I05.0 Rheumatic mitral stenosis; T78.3XXA Angioneurotic edema, initial encounter; I48.20 Chronic atrial fibrillation, unspecified; E87.6 Hypokalemia; Z20.828 Contact with and (suspected) exposure to other viral communicable diseases; Z87.820 Personal history of traumatic brain injury; Z79.01 Long term (current) use of anticoagulants; Z79.899 Other long term (current) drug therapy; Z66 Do not resuscitate
CPT/HCPCS: 36415; 71045; 80048; 80051; 80076; 80162; 82140; 82947; 83690; 83735; 83880; 85025; 85027; 85060; 85610; 85652; 86140; 86160; 86850; 86900; 86901; 86920; 86923; 93005; 93321; 94640; 96372; 96374; 96375; 99225; 99285; 99291; J2060; J2270; J2405; J3475; Q0163; U0003

== ENCOUNTER 2020-11-03 17:19 | Inpatient (IN) | payer MEDICAID, SELFPAY ==
--- NOTE | 2020-11-03 | CT_ITS ---
EXAMINATION: CT ABDOMEN AND PELVIS WITHOUT CONTRAST CLINICAL INFORMATION: Abdominal pain COMPARISON: 09/11/2020 TECHNIQUE: Multidetector volumetric imaging was performed from the superior aspect of the liver through the pubic symphysis. Sagittal and coronal reformatted images were obtained on the technologist's workstation. This CT examination was performed using dose optimization techniques as appropriate, variously including the following: *Automated exposure control *Adjustment of mA and/or kV according to patient size (this includes techniques or standardized protocols for targeted exams where dose is matched to indication/reason for exam; i.e. extremities or head) *Use of iterative reconstruction technique DLP: 436 mGy-cm FINDINGS: LUNG BASES: Small right pleural effusion, increased from prior, with adjacent subsegmental atelectasis. Cardiomegaly with partially visualized mild to moderate pericardial effusion. LIVER, GALLBLADDER, AND BILIARY TREE: The liver is normal in size, shape, and attenuation. No focal hepatic lesion or biliary ductal dilatation is present. The gallbladder is unremarkable. PANCREAS: There is a cystic lesion of the distal pancreas measuring up to 1.7 cm as seen on axial image 20/95, coronal image 39. This appears similar to prior study of 03/15/2020. SPLEEN: Unremarkable. ADRENAL GLANDS: Unremarkable. KIDNEYS AND URETERS: The kidneys are normal in size, shape, and attenuation. No hydronephrosis, hydroureter, or calculi seen. No perinephric stranding. BLADDER: Decompressed with a Alegre catheter. GASTROINTESTINAL TRACT: The small and large bowel are unremarkable. The appendix is unremarkable. Moderate volume of ascites is present. ABDOMINAL WALL: Anasarca is noted, increased from prior. LYMPH NODES: No lymphadenopathy is seen, though assessment is limited in the absence of intravenous contrast. VASCULAR: Grossly unremarkable on this noncontrast exam. PELVIC VISCERA: Unremarkable. OSSEOUS STRUCTURES: Unremarkable. CT/CT abdomen pelvis wo con IMPRESSION: 1. Moderate volume ascites, similar to 09/11/2020. Anasarca has increased since that time. 2. Small right pleural effusion, increased from prior. 3. Redemonstrated cardiomegaly. Partially visualized pericardial effusion, suspected to be small to moderate in volume. 4. Cystic lesion of the distal pancreas measuring up to 1.7 cm, similar to prior study of 03/15/2020. As noted at that time, this may be further assessed with MRI/MRCP.
[2020-11-03 17:34] VITALS: BP 90/60; PULSE 52; O2SAT 99; BMI 22.4
--- NOTE | 2020-11-03 18:25 | XR_ITS ---
EXAMINATION: XR CHEST CLINICAL INFORMATION: Evaluate for congestion, lower extremity swelling COMPARISON: 09/29/2020 TECHNIQUE: Frontal view of the chest was obtained. FINDINGS: Again noted is cardiomegaly without CHF. No effusions, infiltrates or lung masses are seen. Right basilar atelectasis is present. XR/XR chest 1V IMPRESSION: Cardiomegaly without CHF
--- NOTE | 2020-11-03 18:26 | ECG_ITS ---
Test Reason : URINE PROBLEM Blood Pressure : / mmHG Vent. Rate : 106 BPM Atrial Rate : 111 BPM P-R Int : 000 ms QRS Dur : 104 ms QT Int : 418 ms P-R-T Axes : 000 105 012 degrees QTc Int : 555 ms Atrial fibrillation with rapid ventricular response with premature ventricular or aberrantly conducted complexes Rightward axis Prolonged QT Abnormal ECG When compared with ECG of 30-SEP-2020 07:59, QT has lengthened Referred By: Anca Junior Electronically Signed By:THOMAS JIMENEZ MD
--- NOTE | 2020-11-03 18:29 | ED.MALEGU ---
HPI - Male Genitourinary General Chief complaint: Urogenital-Male Stated complaint: PENILE SWELLING,UNABLE TO URINATE Time Seen by Provider: 11/03/20 17:58 Source: EMS Mode of arrival: EMS Limitations: no limitations History of Present Illness HPI Narrative: 60 yo male with past medical history of afib on coumadin, CHF, TBI, schizophrenia here with penile swelling and difficulty urinating. Patient tells me he has had penile swelling for some time however worsened over the last few days. Only able to dribble urine and not empty his bladder. On bumex 2mg BID and compliant. Also c/o acute on chronic leg swelling and pain. No abdominal pain/shortness of breath or cough or chest pain. MD Complaint: testicle swelling Onset (ago): day(s) Duration: constant Location: penis Relieving factors: none Exacerbating factors: none Associated symptoms: Reports denies other symptoms Related Data Home Medications Medication Instructions Recorded Confirmed benztropine 2 mg PO BID 09/12/20 09/29/20 digoxin [Digitek] 125 mcg PO DAILY 09/12/20 09/29/20 omeprazole 40 mg PO DAILY 09/12/20 09/29/20 risperidone 2 mg PO BID 09/12/20 09/29/20 warfarin 7.5 mg PO DAILY 09/12/20 09/29/20 Previous Rx's Medication Instructions Recorded bumetanide 2 mg PO BID@0800,1700 #60 tab 10/08/20 cetirizine 10 mg PO DAILY #30 tab 10/08/20 epinephrine [EpiPen 2-Sumeet] 0.3 mg IM Q10M PRN #2 ea 10/08/20 metoprolol succinate 12.5 mg PO DAILY #15 tab 10/08/20 Allergies Allergy/AdvReac Type Severity Reaction Status Date / Time Fish Containing Products Allergy Unknown UNKNOWN Verified 09/12/20 07:09 PEPPERS, JALAPENO Allergy Unknown UNKNOWN Uncoded 09/12/20 07:09 Review of Systems Review of Systems: Yes all other systems are reviewed and are negative Constitutional: Constitutional: Reports no additional constitutional complaints, Denies body ache(s), Denies chills, Denies fever(s), Denies headache(s) and Denies weakness Eyes: Eyes: Reports no additional eye complaints and Denies change in vision ENT: Reports system reviewed and no additional complaints, except as documented, Denies dizziness, Denies headache(s), Denies nasal congestion, Denies nasal discharge and Denies neck pain Cardiovascular: Cardiovascular: Reports no additional cardiovascular complaints, Denies chest pain, Reports leg edema and Denies dyspnea Respiratory: Respiratory: Reports no additional respiratory complaints, Denies cough and Denies dyspnea Gastrointestinal: Gastrointestinal: Reports no additional gastrointestinal complaints, Denies abdominal pain, Denies diarrhea, Denies nausea and Denies vomiting Genitourinary: Genitourinary: Denies urinary incontinence Comments: Penile swelling, urine dribbling Musculoskeletal: Musculoskeletal: Reports no additional musculoskeletal complaints, Denies back pain, Denies arthralgias, Denies joint swelling, Denies neck pain, Denies numbness and Denies tingling Integumentary/Breasts: Skin/Breast: Reports system reviewed and no additional complaints, except as docu and Denies rash Neurologic: Reports system reviewed and no additional complaints, except as documented, Denies Abnormal speech present, Denies dizziness, Denies headache(s), Denies numbness, Denies tingling and Denies weakness PMFSH Past Medical History Attestation statement: The following information was validated with the patient. Source: old records reviewed and nursing notes reviewed Medical History Afib CHF (congestive heart failure) Hepatic encephalopathy Quit consuming alcohol in remote past Schizophrenia Severe mitral valve stenosis Traumatic brain injury Family History Family History Father No problems noted. Mother HTN (hypertension) Social History Social History Household Members: Family Housing: House Alcohol intake: never Smoking Status: Former smoker Smoked in Last 30 Days: No Use of substances other than those prescribed or required for medical reasons: No Advance Directives: No Advance Directives Information Provided: Yes service: No Current occupational status: unemployed Physical Exam Vital Signs: Vital Signs: Last Vital Signs Temp 98.0 F 11/03/20 21:21 Pulse 116 H 11/03/20 21:21 Resp 18 11/03/20 21:21 BP 122/68 11/03/20 21:21 Pulse Ox 98 11/03/20 21:21 Body Mass Index 22.4 Const: General: cooperative, healthy appearing, comfortable and no acute distress Orientation/consciousness: patient oriented x3 Limitations: no limitations HENMT: Head: Yes normal to inspection Ears: hearing grossly normal bilaterally General nose exam: Normal external nose present Face and sinus: Yes normal facial exam Mouth: Normal oral and palatal mucosa present Throat: Yes posterior oropharynx normal Eyes: General: appearance normal, both eyes and all related structures Pupils: Equal, round and reactive pupils present Neck: Neck: Yes normal visual inspection Chest: Chest palpation & inspection: normal inspection of the chest Resp: Effort & Inspection: normal respiratory effort Auscultation: clear to auscultation bilaterally Cardio: Rate: regular rate Rhythm: regular rhythm Peripheral pulses: Peripheral pulses 2+ throughout GI: Inspection: Yes normal to inspection Palpation (GI): Soft to palpation and nontender Auscultation: normal bowel sounds : Other: Extensive pitting edema of the scrotum and penis. Unable to retract foreskin or visualize urethra Back/Spine/Pelvis: Thoracic/Lumbar Spine: thoracic and lumbar spine normal to inspection Skin: General skin exam: no rashes or lesions noted Neuro: General: patient oriented x3, no focal motor deficits and normal sensation to monofilament Cranial nerves: Yes Equal, round and reactive pupils present Cognition (Neuro): normal cognition Speech: No Abnormal speech present Gait exam (Neuro): Normal gait present Motor exam (neuro): 5/5 motor strength present throughout Extrem: General: Yes edema (pitting edema to bilateral thighs extending to scrotum and penis. ) Course Course Course Narrative: 60 yo male here with LE swelling which extends to genitals now with difficulty voiding. Only able to dribble urine. PVR in ED >300ml. Patient will need wiley placement, labs, UA, EKG, CXR. 2029-Multiple attempts by nursing to place catheter but unable d/t swelling. Able to place a 14fr wiley catheter although difficult d/t swelling. . 2042-Labs show CAMERON at baseline, hyponatremia 126, RUDY, acute on chronic LFTS likely secondary to CHF, BNP 2580. EKG shows afib with rate 106. CXR c/w with central vascular congestion. Patient will need admission for fluid management. 2099-Discussed with Dr Solis who accepted admission. Add on troponin added per request and medicine will follow. Bumex 2mg IV ordered with gentle NSB 500ml. MDM - Male Genitourinary Medical Records Attestation: I reviewed the patient's medical records. Lab Data Attestation: I reviewed the patient's lab results. Result diagrams: 11/03/20 19:50 11/03/20 19:50 Labs: Lab Results 11/03/20 11/03/20 11/03/20 Range/Units 19:50 19:50 19:50 WBC 6.1 (4.8-10.8) X10*3/uL RBC 4.59 L (4.60-5.80) X10*6/uL Hgb 9.3 L (14.0-18.0) g/dl Hct 27.2 L (42-52) % MCV 59.3 L (80-98) fL MCH 20.3 L (27.0-33.0) pg MCHC 34.2 (31.0-36.0) g/dl RDW 21.3 H (11.0-16.0) % Plt Count 71 L D (160-400) X10*3/uL MPV Not Reportable Immature Gran % (Auto) Cancelled Neut % (Auto) Cancelled Lymph % (Auto) Cancelled [place] % (Auto) Cancelled Eos % (Auto) Cancelled Baso % (Auto) Cancelled Lymph # (Auto) Cancelled [place] # (Auto) Cancelled Eos # (Auto) Cancelled Baso # (Auto) Cancelled Abs Immat Gran (auto) Cancelled Absolute Neuts (auto) Cancelled Absolute Nucleated RBC 0.280 H (0.0-0.012) X10*3/uL Nucleated RBC % (auto) 4.6 H (0.0-0.2) /100WBC Neutrophils % (Manual) 68 (45-73) % Band Neutrophils % 0 L (3-5) % Lymphocytes % (Manual) 14 L (20-40) % Monocytes % (Manual) 12 H (2-11) % Eosinophils % (Manual) 6 H (0-4) % Abs Neuts (Manual) 4.1 (2.2-7.9) X10*3/uL Lymphocytes # (Manual) 0.9 (0.6-4.8) X10*3/uL Monocytes # (Manual) 0.7 (0.0-1.2) X10*3/uL Eosinophils # (Manual) 0.4 (0.0-0.8) X10*3/UL Nucleated RBCs 6 H (0-0) /100WBC Platelet Estimate DECREASED (NORMAL) Large Platelets PRESENT Plt Morphology Comment NOTED RBC Morphology NOTED Hypochromasia 2+ Microcytosis 2+ Target Cells 1+ Acanthocytes (Spur) 2+ PT (10.8-13.0) SEC INR (0.9-1.1) Hold Blue Top SEE NOTE Sodium 126 L (135-145) mmol/L Potassium 4.0 (3.3-5.1) mmol/l Chloride 91 L (96-108) mmol/L Carbon Dioxide 18 L (22-29) mmol/L Anion Gap 21 H (12-20) BUN 40 H D (9-16) mg/dL Creatinine 1.70 H (0.5-1.4) mg/dL Estim Creat Clear Calc 43.4 Estimated GFR 42 Random Glucose 67 (60-115) mg/dL Calcium 8.5 (8.4-10.2) mg/dL Magnesium 1.8 (1.6-2.6) mg/dL Total Bilirubin 8.7 H (0.0-1.0) mg/dL Direct Bilirubin 5.5 H (0.0-0.5) mg/dL AST 67 H (5-37) U/L ALT 62 H (0-40) U/L Alkaline Phosphatase 143 H D (39-117) U/L Troponin I High Sens (<3.5-35.0) ng/L B-Natriuretic Peptide (<100) pg/mL Total Protein 6.5 (6.5-8.0) g/dL Albumin 2.8 L (3.5-5.0) g/dL Urine Color Urine Appearance Urine pH (5.0-8.0) Ur Specific [place] (1.005-1.025) Urine Protein (NEG-TRACE) MG/DL Urine Glucose (UA) (NEG) MG/DL Urine Ketones (NEG) MG/DL Urine Blood (NEG) Urine Nitrite (NEG) Ur Leukocyte Esterase (NEG) Urine RBC (0) /HPF Urine WBC (0-4) /HPF Ur Squamous Epith Cells /LPF Urine Bacteria /LPF COVID-19 ([facility]) (Negative) COVID-19 Clin Com 11/03/20 11/03/20 11/03/20 Range/Units 19:50 19:50 19:55 WBC (4.8-10.8) X10*3/uL RBC (4.60-5.80) X10*6/uL Hgb (14.0-18.0) g/dl Hct (42-52) % MCV (80-98) fL MCH (27.0-33.0) pg MCHC (31.0-36.0) g/dl RDW (11.0-16.0) % Plt Count (160-400) X10*3/uL MPV Immature Gran % (Auto) Neut % (Auto) Lymph % (Auto) [place] % (Auto) Eos % (Auto) Baso % (Auto) Lymph # (Auto) [place] # (Auto) Eos # (Auto) Baso # (Auto) Abs Immat Gran (auto) Absolute Neuts (auto) Absolute Nucleated RBC (0.0-0.012) X10*3/uL Nucleated RBC % (auto) (0.0-0.2) /100WBC Neutrophils % (Manual) (45-73) % Band Neutrophils % (3-5) % Lymphocytes % (Manual) (20-40) % Monocytes % (Manual) (2-11) % Eosinophils % (Manual) (0-4) % Abs Neuts (Manual) (2.2-7.9) X10*3/uL Lymphocytes # (Manual) (0.6-4.8) X10*3/uL Monocytes # (Manual) (0.0-1.2) X10*3/uL Eosinophils # (Manual) (0.0-0.8) X10*3/UL Nucleated RBCs (0-0) /100WBC Platelet Estimate (NORMAL) Large Platelets Plt Morphology Comment RBC Morphology Hypochromasia Microcytosis Target Cells Acanthocytes (Spur) PT 37.2 H (10.8-13.0) SEC INR 3.1 H (0.9-1.1) Hold Blue Top Sodium (135-145) mmol/L Potassium (3.3-5.1) mmol/l Chloride (96-108) mmol/L Carbon Dioxide (22-29) mmol/L Anion Gap (12-20) BUN (9-16) mg/dL Creatinine (0.5-1.4) mg/dL Estim Creat Clear Calc Estimated GFR Random Glucose (60-115) mg/dL Calcium (8.4-10.2) mg/dL Magnesium (1.6-2.6) mg/dL Total Bilirubin (0.0-1.0) mg/dL Direct Bilirubin (0.0-0.5) mg/dL AST (5-37) U/L ALT (0-40) U/L Alkaline Phosphatase (39-117) U/L Troponin I High Sens 36.3 H (<3.5-35.0) ng/L B-Natriuretic Peptide 2580 H (<100) pg/mL Total Protein (6.5-8.0) g/dL Albumin (3.5-5.0) g/dL Urine Color YELLOW Urine Appearance CLEAR Urine pH 5.5 (5.0-8.0) Ur Specific [place] 1.020 (1.005-1.025) Urine Protein 1+ H (NEG-TRACE) MG/DL Urine Glucose (UA) NEG (NEG) MG/DL Urine Ketones NEG (NEG) MG/DL Urine Blood TRACE (NEG) Urine Nitrite NEG (NEG) Ur Leukocyte Esterase NEG (NEG) Urine RBC 1-4 (0) /HPF Urine WBC 0-2 (0-4) /HPF Ur Squamous Epith Cells TRACE /LPF Urine Bacteria TRACE /LPF COVID-19 ([facility]) (Negative) COVID-19 Clin Com 11/03/20 Range/Units 21:05 WBC (4.8-10.8) X10*3/uL RBC (4.60-5.80) X10*6/uL Hgb (14.0-18.0) g/dl Hct (42-52) % MCV (80-98) fL MCH (27.0-33.0) pg MCHC (31.0-36.0) g/dl RDW (11.0-16.0) % Plt Count (160-400) X10*3/uL MPV Immature Gran % (Auto) Neut % (Auto) Lymph % (Auto) [place] % (Auto) Eos % (Auto) Baso % (Auto) Lymph # (Auto) [place] # (Auto) Eos # (Auto) Baso # (Auto) Abs Immat Gran (auto) Absolute Neuts (auto) Absolute Nucleated RBC (0.0-0.012) X10*3/uL Nucleated RBC % (auto) (0.0-0.2) /100WBC Neutrophils % (Manual) (45-73) % Band Neutrophils % (3-5) % Lymphocytes % (Manual) (20-40) % Monocytes % (Manual) (2-11) % Eosinophils % (Manual) (0-4) % Abs Neuts (Manual) (2.2-7.9) X10*3/uL Lymphocytes # (Manual) (0.6-4.8) X10*3/uL Monocytes # (Manual) (0.0-1.2) X10*3/uL Eosinophils # (Manual) (0.0-0.8) X10*3/UL Nucleated RBCs (0-0) /100WBC Platelet Estimate (NORMAL) Large Platelets Plt Morphology Comment RBC Morphology Hypochromasia Microcytosis Target Cells Acanthocytes (Spur) PT (10.8-13.0) SEC INR (0.9-1.1) Hold Blue Top Sodium (135-145) mmol/L Potassium (3.3-5.1) mmol/l Chloride (96-108) mmol/L Carbon Dioxide (22-29) mmol/L Anion Gap (12-20) BUN (9-16) mg/dL Creatinine (0.5-1.4) mg/dL Estim Creat Clear Calc Estimated GFR Random Glucose (60-115) mg/dL Calcium (8.4-10.2) mg/dL Magnesium (1.6-2.6) mg/dL Total Bilirubin (0.0-1.0) mg/dL Direct Bilirubin (0.0-0.5) mg/dL AST (5-37) U/L ALT (0-40) U/L Alkaline Phosphatase (39-117) U/L Troponin I High Sens (<3.5-35.0) ng/L B-Natriuretic Peptide (<100) pg/mL Total Protein (6.5-8.0) g/dL Albumin (3.5-5.0) g/dL Urine Color Urine Appearance Urine pH (5.0-8.0) Ur Specific [place] (1.005-1.025) Urine Protein (NEG-TRACE) MG/DL Urine Glucose (UA) (NEG) MG/DL Urine Ketones (NEG) MG/DL Urine Blood (NEG) Urine Nitrite (NEG) Ur Leukocyte Esterase (NEG) Urine RBC (0) /HPF Urine WBC (0-4) /HPF Ur Squamous Epith Cells /LPF Urine Bacteria /LPF COVID-19 ([facility]) Negative (Negative) COVID-19 Clin Com See Note Imaging Data Chest x-ray: Attestation: I personally reviewed and interpreted this imaging study as follows: Radiologist's impression: EXAMINATION: XR CHEST CLINICAL INFORMATION: Evaluate for congestion, lower extremity swelling COMPARISON: 09/29/2020 TECHNIQUE: Frontal view of the chest was obtained. FINDINGS: Again noted is cardiomegaly without CHF. No effusions, infiltrates or lung masses are seen. Right basilar atelectasis is present. XR/XR chest 1V IMPRESSION: Cardiomegaly without CHF ECG Data Attestation: I personally reviewed and interpreted this ECG as follows: ECG interpretation date: 11/03/20 ECG interpretation time: 19:40 Interpretation: afib with rvr rate 106, normal qrs, normal qt Discharge Plan Discharge Clinical Impression: CHF (congestive heart failure), Anasarca, Acute retention of urine, Hyponatremia, RUDY (acute kidney injury), Elevated LFTs Prescriptions: No Action warfarin 7.5 mg Tablet 7.5 mg PO DAILY RF: 0 Hold Instructions: Resume on 10/10/20. hold until INR is <3, then resume omeprazole 40 mg Capsule,Delayed Release(Dr/Ec) 40 mg PO DAILY RF: 0 risperidone 2 mg Tablet 2 mg PO BID RF: 0 benztropine 2 mg Tablet 2 mg PO BID RF: 0 digoxin [Digitek] 125 mcg (0.125 mg) Tablet 125 mcg PO DAILY RF: 0 metoprolol succinate 25 mg tablet extended release 24 hr 12.5 mg PO DAILY Qty: 15 RF: 1 bumetanide 1 mg Tablet 2 mg PO BID@0800,1700 Qty: 60 RF: 0 cetirizine 10 mg tablet 10 mg PO DAILY Qty: 30 RF: 0 epinephrine [EpiPen 2-Sumeet] 0.3 mg/0.3 mL auto-injector 0.3 mg IM Q10M PRN (Reason: anaphylaxis) Qty: 2 RF: 0
[2020-11-03] MEDS: Lidocaine HCl 2 % Urojet 10 ML JEL.PF.APP TOPICAL ×2 (18:40→19:30)
--- NOTE | 2020-11-03 19:27 | PC.NURSE ---
providers at bedside attempting cath, urology has been called
[2020-11-03 20:01] LABS: Glucose Urine UA NEG (NEG); Leukocyte Esterase Urine NEG (NEG); Nitrite Urine NEG (NEG); PH 5.5 (5.0-8.0); Urine Blood TRACE (NEG); Urine Ketones NEG (NEG); Urine Protein 1+ MG/DL (NEG-TRACE)
[2020-11-03 20:01] LABS: Hemoglobin 9.3 g/dl (14.0-18.0)
[2020-11-03 20:03] LABS: Appearance Urine CLEAR; Color Urine YELLOW
[2020-11-03 20:03] LABS: Hematocrit 27.2 % (42-52); Mean Corpuscular HGB Conc 34.2 g/dl (31.0-36.0); Mean Corpuscular Hemoglobin 20.3 pg (27.0-33.0); Red Blood Count 4.59 X10*6/uL (4.60-5.80); Red Cell Distribution Width 21.3 % (11.0-16.0); White Blood Count 6.1 X10*3/uL (4.8-10.8)
[2020-11-03 20:07] LABS: INTERNATIONAL NORM RATIO 3.1 (0.9-1.1); Prothrombin Time 37.2 SEC (10.8-13.0)
[2020-11-03 20:09] LABS: Bacteria Urine TRACE /LPF; Squamous Epithelial Cell Urine TRACE /LPF; WBC Urine 0-2 /HPF (0-4)
[2020-11-03 20:20] LABS: Mean Corpuscular Volume 59.3 fL (80-98); NRBC Pct Auto 4.6 /100WBC (0.0-0.2); PLT ABN DIST 1; Platelet Count 71 X10*3/uL (160-400)
[2020-11-03 20:24] LABS: B Type Natriuretic Peptide 2580 pg/mL (<100)
[2020-11-03 20:28] LABS: Eosinophils Absolute Manual 0.4 X10*3/UL (0.0-0.8); Eosinophils Percent Manual 6 % (0-4); Lymphocytes Absolute Manual 0.9 X10*3/uL (0.6-4.8); Lymphocytes Percent Manual 14 % (20-40); Monocytes Absolute Manual 0.7 X10*3/uL (0.0-1.2); Monocytes Percent Manual 12 % (2-11); Neutrophils Percent Manual 68 % (45-73); Nucleated Red Blood Cells 6 /100WBC (0-0)
[2020-11-03 20:29] LABS: Hypochromasia 2+; Microcytosis 2+; RBC Morphology NOTED
[2020-11-03 20:30] LABS: Acanthocytes 2+; Target Cells 1+
[2020-11-03 20:31] LABS: Large Platelet PRESENT; Platelet Estimate DECREASED (NORMAL); Platelet Morphology Comment NOTED
[2020-11-03 20:32] LABS: Band Neutrophils Percent 0 % (3-5); Neutrophils Absolute Manual 4.1 X10*3/uL (2.2-7.9)
[2020-11-03 20:35] LABS: Alanine Aminotransferase 62 U/L (0-40); Albumin Level 2.8 g/dL (3.5-5.0); Alkaline Phosphatase 143 U/L (39-117); Anion Gap 21 (12-20); Aspartate Amino Transferase 67 U/L (5-37); Bilirubin Direct 5.5 mg/dL (0.0-0.5); Bilirubin Total 8.7 mg/dL (0.0-1.0); Blood Urea Nitrogen 40 mg/dL (9-16); Calcium 8.5 mg/dL (8.4-10.2); Carbon Dioxide 18 mmol/L (22-29); Chloride 91 mmol/L (96-108); Creatinine Clr Calc Pharmacy 43.4; Estimated Glomerular Filt Rate 42; Glucose Random 67 mg/dL (60-115); Magnesium 1.8 mg/dL (1.6-2.6); Sodium 126 mmol/L (135-145); Total Protein 6.5 g/dL (6.5-8.0)
[2020-11-03 21:03] VITALS: BP 114/86; PULSE 99; RESP 20; O2SAT 100
--- NOTE | 2020-11-03 21:06 | PC.NURSE ---
covid swab obtained
[2020-11-03] MEDS: 0.9 % Sodium Chloride 500 ML 999 ML IV (21:14)
[2020-11-03] MEDS: Bumetanide 1 MG/4 ML VIAL 2 MG IVPUSH ×2 (21:20→23:01)
[2020-11-03 21:21] VITALS: BP 122/68; PULSE 116; RESP 18; TEMP 36.7; O2SAT 98
--- NOTE | 2020-11-03 21:25 | PC.NURSE ---
iv inserted, pt medicated per order, pipe coremaker sinus tach 99-115, will continue to monitor.
[2020-11-03 21:26] LABS: COVID-19 Test Negative (Negative); IDNOW Serial# 9DD0AD1C
--- NOTE | 2020-11-03 21:35 | PC.NURSE ---
patient is an unreliable historian for medications as this nurse attempted to do med req with patient, pt did have 1 prescription bottle with him and was able to state he had taken that med at 8am this morning, this nurse reached out to sister dimas with patients permission [phone] who did not answer the phone to get a list of meds, will notify floor nurse upon admission.
[2020-11-03 21:38] LABS: Troponin-I High Sensitivity 36.3 ng/L (<3.5-35.0)
[2020-11-03 22:25] VITALS: BP 103/83; PULSE 109; RESP 16; O2SAT 99
--- NOTE | 2020-11-03 22:48 | PC.NURSE ---
report called, pt to be transported to the floor
[2020-11-03] MEDS: 0.9 % Sodium Chloride Flush 3 ML SYRINGE IVFLUSH (23:01)
[2020-11-03 23:02] VITALS: BP 118/78; PULSE 108; RESP 18; TEMP 36.7; O2SAT 99
[2020-11-04] VITALS (10 sets, daily range): BP systolic 103–146; BP diastolic 61–82; PULSE 55–102; RESP 16–20; TEMP 35.2–36.8; O2SAT 92–100; BMI 21.8
[2020-11-04 04:42] LABS: MANUAL DIFF FLAG SCAN; PLT ABN DIST 1; SCAN SMEAR FLAG 1
[2020-11-04 04:44] LABS: Basophils Absolute Auto 0.1 X10*3/uL (0.0-0.2); Basophils Percent Auto 0.9 % (0-2); Eosinophils Absolute Auto 0.8 X10*3/uL (0.0-0.4); Eosinophils Percent Auto 13.6 % (0-4); Hematocrit 28.9 % (42-52); Hemoglobin 9.4 g/dl (14.0-18.0); Imm Gran Abs Auto 0.02 X10*3/uL (0.00-0.03); Imm Gran Pct Auto 0.3 % (0.0-0.4); Lymphocytes Absolute Auto 0.9 X10*3/uL (1.2-4.9); Lymphocytes Percent Auto 15.9 % (20-40); Mean Corpuscular HGB Conc 32.5 g/dl (31.0-36.0); Mean Corpuscular Hemoglobin 20.1 pg (27.0-33.0); Mean Corpuscular Volume 61.9 fL (80-98); Monocytes Absolute Auto 0.9 X10*3/uL (0.1-1.2); Monocytes Percent Auto 15.5 % (2-11); NRBC Pct Auto 4.4 /100WBC (0.0-0.2); Neutrophils Absolute Auto 3.1 X10*3/uL (2.0-8.3); Neutrophils Percent Auto 53.8 % (45-73); Red Blood Count 4.67 X10*6/uL (4.60-5.80); Red Cell Distribution Width 21.7 % (11.0-16.0); White Blood Count 5.7 X10*3/uL (4.8-10.8)
[2020-11-04 05:01] LABS: Platelet Count 79 X10*3/uL (160-400)
[2020-11-04 05:02] LABS: SLIDE REVIEW VERIFIED
[2020-11-04 05:04] LABS: Anion Gap 19 (12-20); Blood Urea Nitrogen 40 mg/dL (9-16); Calcium 8.1 mg/dL (8.4-10.2); Carbon Dioxide 15 mmol/L (22-29); Chloride 95 mmol/L (96-108); Creatinine Clr Calc Pharmacy 46.7; Estimated Glomerular Filt Rate 45; Glucose Random 99 mg/dL (60-115); Potassium 3.9 mmol/l (3.3-5.1); Sodium 125 mmol/L (135-145)
--- NOTE | 2020-11-04 05:17 | P.HPHOSP_ITS ---
History of Present Illness Date of Service: 11/03/20 Chief Complaint: lower extremity swelling this is a 60-year-old male with past medical history of CHF with preserved ejection fraction, AFib on warfarin, severe mitral stenosis, schizophrenia, history of TBI, history of congestive hepatic disease who presents to the hospital with complaints of lower extremity edema up to the scrotum. Patient reports that this started about a week ago, he is not cooperative although alert and oriented x3. He is also complaining of diffuse abdominal pain and distension, that has not changed, he feels very constipated although last bowel movement was the day prior to arrival, he denies any fever, chills, no chest pain, shortness of breath, no diarrhea constipation, he endorses nausea and vomiting, reports difficulty urinating due to the swelling in his scrotum. He otherwise denies any other symptoms on arrival to the ED hemodynamically stable with no significant abnormal vitals, labs are significant for hemoglobin of 9.4, hematocrit of 28.9 (around his baseline), PT of 37, INR 3.1, sodium of 125 ( 137 on 10/08 ), BUN of 40, creatinine of 1.70 ( baseline is around 0.98 from 10/08), bilirubin of 8.7, di rect bili of 5.5, AST of 67 ALT of 62, alk-phos of 143, high sensitivity troponin of 36.3, BNP of 2580, albumin of 2.8, urine that is negative, chest x- ray that shows cardiomegaly without CHF, CT abdomen showed moderate volume ascites, anasarca has increased since last CT which was 09/11, small right pleural effusion, redemonstration of cardiomegaly, partially visualized pericardial effusion suspected to be small to moderate in volume. Cystic lesion of the distal pancreas which was present previously past medical history: Heart failure with with preserved ejection fraction, AFib on warfarin, severe mitral stenosis, schizophrenia, history of TBI, history of congestive hepatopathy past surgical history: unknown family history: The patient is unable to provide any family history social history: Lives with his sister, history of alcohol abuse in the past but not currently. Review of Systems Review of Systems: Yes all other systems are reviewed and are negative Constitutional: Constitutional: Denies headache(s) and Denies weakness ENT: Denies dizziness and Denies headache(s) Musculoskeletal: Musculoskeletal: Denies numbness and Denies tingling Neurologic: Reports system reviewed and no additional complaints, except as documented, Denies Abnormal speech present, Denies dizziness, Denies headache(s), Denies numbness, Denies tingling and Denies weakness PMF Medical History Afib CHF (congestive heart failure) Hepatic encephalopathy Quit consuming alcohol in remote past Schizophrenia Severe mitral valve stenosis Traumatic brain injury Family History Father No problems noted. Mother HTN (hypertension) Social History Household Members: Family Housing: House Alcohol intake: never Smoking Status: Never smoker Smoked in Last 30 Days: No Use of substances other than those prescribed or required for medical reasons: No Currently Displaying Signs/Symptoms of Drug Intoxication Withdrawal: No Have you been hit, kicked, punched, or otherwise hurt by someone within the past year? If so, by whom?: No Do you feel safe in your current relationship?: No Current Relationship Are you made to feel afraid or neglected: No Advance Directives: No Advance Directives Information Provided: Yes Do you have thoughts of harming others: None Do you have a plan to hurt others: No Plan service: No Current occupational status: unemployed Meds Allergies Allergy/AdvReac Type Severity Reaction Status Date / Time Fish Containing Products Allergy Unknown UNKNOWN Verified 09/12/20 07:09 PEPPERS, JALAPENO Allergy Unknown UNKNOWN Uncoded 09/12/20 07:09 Home Medications Medication Instructions Recorded Confirmed Type benztropine 2 mg PO BID 09/12/20 09/29/20 History digoxin [Digitek] 125 mcg PO DAILY 09/12/20 09/29/20 History omeprazole 40 mg PO DAILY 09/12/20 09/29/20 History risperidone 2 mg PO BID 09/12/20 09/29/20 History warfarin 7.5 mg PO DAILY 09/12/20 09/29/20 History Physical Exam Vital Signs and Narrative: Vital Signs: Last Vital Signs Temp 97.8 F 11/04/20 03:19 Pulse 102 H 11/04/20 03:19 Resp 16 11/04/20 03:19 BP 103/77 11/04/20 03:19 Pulse Ox 97 11/04/20 03:19 Body Mass Index 22.4 Const: General: cooperative and no acute distress Orientation/consciousness: patient oriented x3 HENMT: Other: JVD present Eyes: General: appearance normal, both eyes and all related structures Pupils: Equal, round and reactive pupils present Resp: Effort & Inspection: normal respiratory effort and able to speak in complete sentences Auscultation: clear to auscultation bilaterally Cardio: Rate: regular rate Rhythm: regular rhythm GI: Other: very hard abdomen, no significant distension, no significant tenderness on palpation, no rebound, no guarding Auscultation: normal bowel sounds Skin: General skin exam: no rashes or lesions noted Neuro: General: patient oriented x3 Cranial nerves: Yes Equal, round and reactive pupils present Cognition (Neuro): normal cognition Speech: No Abnormal speech present Extrem: Other: 3+ pedal edema General: Yes normal to inspection Results Labs CBC and Chem 7: 11/04/20 04:12 11/04/20 04:12 Labs: Laboratory Results - last 24 hr 11/03/20 11/03/20 11/03/20 19:50 19:50 19:50 MCV 59.3 L MCH 20.3 L MCHC 34.2 RDW 21.3 H Plt Count 71 L D MPV Not Reportable Immature Gran % (Auto) Cancelled Neut % (Auto) Cancelled Lymph % (Auto) Cancelled [place] % (Auto) Cancelled Eos % (Auto) Cancelled Baso % (Auto) Cancelled Lymph # (Auto) Cancelled [place] # (Auto) Cancelled Eos # (Auto) Cancelled Baso # (Auto) Cancelled Abs Immat Gran (auto) Cancelled Absolute Neuts (auto) Cancelled Absolute Nucleated RBC 0.280 H Nucleated RBC % (auto) 4.6 H Neutrophils % (Manual) 68 Band Neutrophils % 0 L Lymphocytes % (Manual) 14 L Monocytes % (Manual) 12 H Eosinophils % (Manual) 6 H Abs Neuts (Manual) 4.1 Lymphocytes # (Manual) 0.9 Monocytes # (Manual) 0.7 Eosinophils # (Manual) 0.4 Nucleated RBCs 6 H Platelet Estimate DECREASED Large Platelets PRESENT Plt Morphology Comment NOTED RBC Morphology NOTED Hypochromasia 2+ Microcytosis 2+ Target Cells 1+ Acanthocytes (Spur) 2+ Smear Tech's Comments PT INR Hold Blue Top SEE NOTE Anion Gap 21 H Estim Creat Clear Calc 43.4 Estimated GFR 42 Random Glucose 67 Calcium 8.5 Magnesium 1.8 Total Bilirubin 8.7 H Direct Bilirubin 5.5 H AST 67 H ALT 62 H Alkaline Phosphatase 143 H D Troponin I High Sens B-Natriuretic Peptide Total Protein 6.5 Albumin 2.8 L Urine Color Urine Appearance Urine pH Ur Specific [place] Urine Protein Urine Glucose (UA) Urine Ketones Urine Blood Urine Nitrite Ur Leukocyte Esterase Urine RBC Urine WBC Ur Squamous Epith Cells Urine Bacteria COVID-19 ([facility]) COVID-19 [employer] 11/03/20 11/03/20 11/03/20 19:50 19:50 19:55 MCV MCH MCHC RDW Plt Count MPV Immature Gran % (Auto) Neut % (Auto) Lymph % (Auto) [place] % (Auto) Eos % (Auto) Baso % (Auto) Lymph # (Auto) [place] # (Auto) Eos # (Auto) Baso # (Auto) Abs Immat Gran (auto) Absolute Neuts (auto) Absolute Nucleated RBC Nucleated RBC % (auto) Neutrophils % (Manual) Band Neutrophils % Lymphocytes % (Manual) Monocytes % (Manual) Eosinophils % (Manual) Abs Neuts (Manual) Lymphocytes # (Manual) Monocytes # (Manual) Eosinophils # (Manual) Nucleated RBCs Platelet Estimate Large Platelets Plt Morphology Comment RBC Morphology Hypochromasia Microcytosis Target Cells Acanthocytes (Spur) Smear Tech's Comments PT 37.2 H INR 3.1 H Hold Blue Top Anion Gap Estim Creat Clear Calc Estimated GFR Random Glucose Calcium Magnesium Total Bilirubin Direct Bilirubin AST ALT Alkaline Phosphatase Troponin I High Sens 36.3 H B-Natriuretic Peptide 2580 H Total Protein Albumin Urine Color YELLOW Urine Appearance CLEAR Urine pH 5.5 Ur Specific [place] 1.020 Urine Protein 1+ H Urine Glucose (UA) NEG Urine Ketones NEG Urine Blood TRACE Urine Nitrite NEG Ur Leukocyte Esterase NEG Urine RBC 1-4 Urine WBC 0-2 Ur Squamous Epith Cells TRACE Urine Bacteria TRACE COVID-19 ([facility]) COVID-19 [employer] 11/03/20 11/04/20 11/04/20 21:05 04:12 04:12 MCV 61.9 L MCH 20.1 L MCHC 32.5 RDW 21.7 H Plt Count 79 L MPV Not Reportable Immature Gran % (Auto) 0.3 Neut % (Auto) 53.8 Lymph % (Auto) 15.9 L [place] % (Auto) 15.5 H Eos % (Auto) 13.6 H Baso % (Auto) 0.9 Lymph # (Auto) 0.9 L [place] # (Auto) 0.9 Eos # (Auto) 0.8 H Baso # (Auto) 0.1 Abs Immat Gran (auto) 0.02 Absolute Neuts (auto) 3.1 Absolute Nucleated RBC 0.250 H Nucleated RBC % (auto) 4.4 H Neutrophils % (Manual) Band Neutrophils % Lymphocytes % (Manual) Monocytes % (Manual) Eosinophils % (Manual) Abs Neuts (Manual) Lymphocytes # (Manual) Monocytes # (Manual) Eosinophils # (Manual) Nucleated RBCs Platelet Estimate Large Platelets Plt Morphology Comment RBC Morphology Hypochromasia Microcytosis Target Cells Acanthocytes (Spur) Smear Tech's Comments VERIFIED PT INR Hold Blue Top Anion Gap 19 Estim Creat Clear Calc 46.7 Estimated GFR 45 Random Glucose 99 D Calcium 8.1 L Magnesium Total Bilirubin Direct Bilirubin AST ALT Alkaline Phosphatase Troponin I High Sens B-Natriuretic Peptide Total Protein Albumin Urine Color Urine Appearance Urine pH Ur Specific [place] Urine Protein Urine Glucose (UA) Urine Ketones Urine Blood Urine Nitrite Ur Leukocyte Esterase Urine RBC Urine WBC Ur Squamous Epith Cells Urine Bacteria COVID-19 ([facility]) Negative COVID-19 Clin Com See Note Imaging Radiologist's Impressions: Impressions Abdomen/Pelvis CT 11/03/20 00:00 IMPRESSION: 1. Moderate volume ascites, similar to 09/11/2020. Anasarca has increased since that time. 2. Small right pleural effusion, increased from prior. 3. Redemonstrated cardiomegaly. Partially visualized pericardial effusion, suspected to be small to moderate in volume. 4. Cystic lesion of the distal pancreas measuring up to 1.7 cm, similar to prior study of 03/15/2020. As noted at that time, this may be further assessed with MRI/MRCP. Chest X-Ray 11/03/20 18:25 IMPRESSION: Cardiomegaly without CHF Assessment and Plan (1) CHF (congestive heart failure): Problem details: acute on chronic HFpEF Status: Acute (2) Hyponatremia: Status: Acute (3) RUDY (acute kidney injury): Status: Acute (4) Elevated LFTs: Status: Acute (5) Right ventricular failure: Status: Acute (6) Severe mitral valve stenosis: Status: Acute (7) Anasarca: Status: Acute (8) Afib: Status: Acute # acute CHF exacerbation - presents with lower extremity edema, anasarca that has worsened from prior presentation, elevated BNP, mildly elevated troponin, pleural effusion on CT findings as well as pericardial effusion - patient on Bumex 2 mg b.i.d. and reports compliance plan: - Will start him on Bumex 2 mg IV b.i.d. - follow I&O, low-sodium diet, daily weight - echocardiogram - cardiology consulted - admit to telemetry # abdominal pain - most likely secondary to ascites, SBP less likely, - patient has no leukocytosis, afebrile - no abdominal rebound or guarding - CT finding as above Plan - may require therapeutic paracentesis prior to discharge - supportive measure # RUDY - most likely prerenal due to CHF exacerbation - will follow BMP # hyponatremia - unclear etiology - normal in the past plan: - Consult Nephrology, follow BMP, will not start him on fluids given his CHF exacerbation # elevated LFTs including hyperbilirubinemia - unclear etiology, CT abdomen does show pancreatic lesion with no hepatic steatosis - patient does have congestive hepatopathy which may be contributing to the elevated bilirubin although appears to be acute since last discharge plan: - Follow bilirubin - if continues to increase, will consult Gastroenterology, possible MRCP ERCP as recommended by CT # AFib - rate controlled - on warfarin with a therapeutic INR - will continue warfarin, and metoprolol DVT prophylaxis: Warfarin
[2020-11-04 07:16] LABS: Alanine Aminotransferase 56 U/L (0-40); Albumin Level 2.7 g/dL (3.5-5.0); Alkaline Phosphatase 134 U/L (39-117); Aspartate Amino Transferase 61 U/L (5-37); Bilirubin Direct 5.3 mg/dL (0.0-0.5); Bilirubin Total 7.9 mg/dL (0.0-1.0); Total Protein 6.4 g/dL (6.5-8.0)
[2020-11-04] MEDS: 0.9 % Sodium Chloride Flush 3 ML SYRINGE IVFLUSH (07:58)
--- NOTE | 2020-11-04 09:48 | P.CONCA_ITS ---
History of Present Illness History of Present Illness Date of Service: 11/04/20 Chief complaint: PENILE SWELLING,UNABLE TO URINATE Narrative: this is a 54-year-old gentleman with severe mitral stenosis. He also has schizophrenia. There a lot of compliance issues as well as social support. He has had several hospitalizations for congestive heart failure. He states that the current admission is because abdominal pain as well as distension. He feels very constipated. Additionally lower extremity edema up to the scrotum as well as penis. Some difficulty urinating. Hence he has been admitted. No clear anginal-type chest pains but difficult to get a full history because of his mental health issues. Shortness of breath seems to be at baseline. Review of Systems Review of Systems: Yes all other systems are reviewed and are negative Constitutional: Constitutional: Denies headache(s) and Denies weakness ENT: Denies dizziness and Denies headache(s) Cardiovascular: Cardiovascular: Reports as per HPI, Reports no additional cardiovascular complaints, Reports Abdominal Distension, Reports leg edema and Reports dyspnea Respiratory: Respiratory: Reports dyspnea Genitourinary: Genitourinary: Reports scrotal swelling Musculoskeletal: Musculoskeletal: Denies numbness and Denies tingling Neurologic: Reports system reviewed and no additional complaints, except as documented, Denies dizziness, Denies headache(s), Denies numbness, Denies tingling and Denies weakness PMFSH Past Medical History Medical History Afib CHF (congestive heart failure) Hepatic encephalopathy Quit consuming alcohol in remote past Schizophrenia Severe mitral valve stenosis Traumatic brain injury Family History Family History Father No problems noted. Mother HTN (hypertension) Social History Social History Household Members: Family Housing: House Alcohol intake: never Smoking Status: Never smoker Smoked in Last 30 Days: No Use of substances other than those prescribed or required for medical reasons: No Currently Displaying Signs/Symptoms of Drug Intoxication Withdrawal: No Have you been hit, kicked, punched, or otherwise hurt by someone within the past year? If so, by whom?: No Do you feel safe in your current relationship?: No Current Relationship Are you made to feel afraid or neglected: No Advance Directives: No Advance Directives Information Provided: Yes Do you have thoughts of harming others: None Do you have a plan to hurt others: No Plan service: No Current occupational status: unemployed Meds Allergies Allergy/AdvReac Type Severity Reaction Status Date / Time Fish Containing Products Allergy Unknown UNKNOWN Verified 09/12/20 07:09 PEPPERS, JALAPENO Allergy Unknown UNKNOWN Uncoded 09/12/20 07:09 Home Medications Medication Instructions Recorded Confirmed Type digoxin [Digitek] 125 mcg PO DAILY 09/12/20 11/04/20 History omeprazole 40 mg PO DAILY 09/12/20 11/04/20 History risperidone 2 mg PO BID 09/12/20 11/04/20 History warfarin 7.5 mg PO DAILY 09/12/20 09/29/20 History clotrimazole 1 appl TOPICAL BID 11/04/20 11/04/20 History Physical Exam Vital Signs: Vital Signs: Last Vital Signs Temp 97.9 F 11/04/20 07:14 Pulse 97 11/04/20 07:14 Resp 18 11/04/20 07:14 BP 115/62 11/04/20 07:14 Pulse Ox 100 11/04/20 07:14 Body Mass Index 21.8 Const: General: comfortable and no acute distress HENMT: Other: Unremarkable Neck: Neck: Yes normal visual inspection and Yes JVD (+ve) Chest: Chest palpation & inspection: normal inspection of the chest Resp: Auscultation: clear to auscultation bilaterally, no crackles and no wheezes Cardio: Heart sounds: S1 normal heart sound present, S2 normal heart sound present, no gallops, no murmurs and no rubs GI: Palpation (GI): Soft to palpation Back/Spine/Pelvis: Other: unremarkable Skin: General skin exam: no rashes or lesions noted Extrem: General: Yes edema Psych: Mental Status: mental status grossly normal Results Labs and Meds Result diagrams: 11/04/20 04:12 11/04/20 04:12 Lab results: Laboratory Results - last 24 hr 11/03/20 11/03/20 11/03/20 19:50 19:50 19:50 WBC 6.1 RBC 4.59 L Hgb 9.3 L Hct 27.2 L MCV 59.3 L MCH 20.3 L MCHC 34.2 RDW 21.3 H Plt Count 71 L D MPV Not Reportable Immature Gran % (Auto) Cancelled Neut % (Auto) Cancelled Lymph % (Auto) Cancelled [place] % (Auto) Cancelled Eos % (Auto) Cancelled Baso % (Auto) Cancelled Lymph # (Auto) Cancelled [place] # (Auto) Cancelled Eos # (Auto) Cancelled Baso # (Auto) Cancelled Abs Immat Gran (auto) Cancelled Absolute Neuts (auto) Cancelled Absolute Nucleated RBC 0.280 H Nucleated RBC % (auto) 4.6 H Neutrophils % (Manual) 68 Band Neutrophils % 0 L Lymphocytes % (Manual) 14 L Monocytes % (Manual) 12 H Eosinophils % (Manual) 6 H Abs Neuts (Manual) 4.1 Lymphocytes # (Manual) 0.9 Monocytes # (Manual) 0.7 Eosinophils # (Manual) 0.4 Nucleated RBCs 6 H Platelet Estimate DECREASED Large Platelets PRESENT Plt Morphology Comment NOTED RBC Morphology NOTED Hypochromasia 2+ Microcytosis 2+ Target Cells 1+ Acanthocytes (Spur) 2+ Smear Tech's Comments PT INR Hold Blue Top SEE NOTE Sodium 126 L Potassium 4.0 Chloride 91 L Carbon Dioxide 18 L Anion Gap 21 H BUN 40 H D Creatinine 1.70 H Estim Creat Clear Calc 43.4 Estimated GFR 42 Random Glucose 67 Calcium 8.5 Magnesium 1.8 Total Bilirubin 8.7 H Direct Bilirubin 5.5 H AST 67 H ALT 62 H Alkaline Phosphatase 143 H D Troponin I High Sens B-Natriuretic Peptide Total Protein 6.5 Albumin 2.8 L Urine Color Urine Appearance Urine pH Ur Specific [place] Urine Protein Urine Glucose (UA) Urine Ketones Urine Blood Urine Nitrite Ur Leukocyte Esterase Urine RBC Urine WBC Ur Squamous Epith Cells Urine Bacteria COVID-19 ([facility]) COVID-19 Clin Com 11/03/20 11/03/20 11/03/20 19:50 19:50 19:55 WBC RBC Hgb Hct MCV MCH MCHC RDW Plt Count MPV Immature Gran % (Auto) Neut % (Auto) Lymph % (Auto) [place] % (Auto) Eos % (Auto) Baso % (Auto) Lymph # (Auto) [place] # (Auto) Eos # (Auto) Baso # (Auto) Abs Immat Gran (auto) Absolute Neuts (auto) Absolute Nucleated RBC Nucleated RBC % (auto) Neutrophils % (Manual) Band Neutrophils % Lymphocytes % (Manual) Monocytes % (Manual) Eosinophils % (Manual) Abs Neuts (Manual) Lymphocytes # (Manual) Monocytes # (Manual) Eosinophils # (Manual) Nucleated RBCs Platelet Estimate Large Platelets Plt Morphology Comment RBC Morphology Hypochromasia Microcytosis Target Cells Acanthocytes (Spur) Smear Tech's Comments PT 37.2 H INR 3.1 H Hold Blue Top Sodium Potassium Chloride Carbon Dioxide Anion Gap BUN Creatinine Estim Creat Clear Calc Estimated GFR Random Glucose Calcium Magnesium Total Bilirubin Direct Bilirubin AST ALT Alkaline Phosphatase Troponin I High Sens 36.3 H B-Natriuretic Peptide 2580 H Total Protein Albumin Urine Color YELLOW Urine Appearance CLEAR Urine pH 5.5 Ur Specific [place] 1.020 Urine Protein 1+ H Urine Glucose (UA) NEG Urine Ketones NEG Urine Blood TRACE Urine Nitrite NEG Ur Leukocyte Esterase NEG Urine RBC 1-4 Urine WBC 0-2 Ur Squamous Epith Cells TRACE Urine Bacteria TRACE COVID-19 ([facility]) COVID-19 Clin Com 11/03/20 11/04/20 11/04/20 21:05 04:12 04:12 WBC 5.7 RBC 4.67 Hgb 9.4 L Hct 28.9 L MCV 61.9 L MCH 20.1 L MCHC 32.5 RDW 21.7 H Plt Count 79 L MPV Not Reportable Immature Gran % (Auto) 0.3 Neut % (Auto) 53.8 Lymph % (Auto) 15.9 L [place] % (Auto) 15.5 H Eos % (Auto) 13.6 H Baso % (Auto) 0.9 Lymph # (Auto) 0.9 L [place] # (Auto) 0.9 Eos # (Auto) 0.8 H Baso # (Auto) 0.1 Abs Immat Gran (auto) 0.02 Absolute Neuts (auto) 3.1 Absolute Nucleated RBC 0.250 H Nucleated RBC % (auto) 4.4 H Neutrophils % (Manual) Band Neutrophils % Lymphocytes % (Manual) Monocytes % (Manual) Eosinophils % (Manual) Abs Neuts (Manual) Lymphocytes # (Manual) Monocytes # (Manual) Eosinophils # (Manual) Nucleated RBCs Platelet Estimate Large Platelets Plt Morphology Comment RBC Morphology Hypochromasia Microcytosis Target Cells Acanthocytes (Spur) Smear Tech's Comments VERIFIED PT INR Hold Blue Top Sodium 125 L Potassium 3.9 Chloride 95 L Carbon Dioxide 15 L Anion Gap 19 BUN 40 H Creatinine 1.58 H Estim Creat Clear Calc 46.7 Estimated GFR 45 Random Glucose 99 D Calcium 8.1 L Magnesium Total Bilirubin Direct Bilirubin AST ALT Alkaline Phosphatase Troponin I High Sens B-Natriuretic Peptide Total Protein Albumin Urine Color Urine Appearance Urine pH Ur Specific [place] Urine Protein Urine Glucose (UA) Urine Ketones Urine Blood Urine Nitrite Ur Leukocyte Esterase Urine RBC Urine WBC Ur Squamous Epith Cells Urine Bacteria COVID-19 ([facility]) Negative COVID-19 Clin Com See Note 11/04/20 05:42 WBC RBC Hgb Hct MCV MCH MCHC RDW Plt Count MPV Immature Gran % (Auto) Neut % (Auto) Lymph % (Auto) [place] % (Auto) Eos % (Auto) Baso % (Auto) Lymph # (Auto) [place] # (Auto) Eos # (Auto) Baso # (Auto) Abs Immat Gran (auto) Absolute Neuts (auto) Absolute Nucleated RBC Nucleated RBC % (auto) Neutrophils % (Manual) Band Neutrophils % Lymphocytes % (Manual) Monocytes % (Manual) Eosinophils % (Manual) Abs Neuts (Manual) Lymphocytes # (Manual) Monocytes # (Manual) Eosinophils # (Manual) Nucleated RBCs Platelet Estimate Large Platelets Plt Morphology Comment RBC Morphology Hypochromasia Microcytosis Target Cells Acanthocytes (Spur) Smear Tech's Comments PT INR Hold Blue Top Sodium Potassium Chloride Carbon Dioxide Anion Gap BUN Creatinine Estim Creat Clear Calc Estimated GFR Random Glucose Calcium Magnesium Total Bilirubin 7.9 H Direct Bilirubin 5.3 H AST 61 H ALT 56 H Alkaline Phosphatase 134 H Troponin I High Sens B-Natriuretic Peptide Total Protein 6.4 L Albumin 2.7 L Urine Color Urine Appearance Urine pH Ur Specific [place] Urine Protein Urine Glucose (UA) Urine Ketones Urine Blood Urine Nitrite Ur Leukocyte Esterase Urine RBC Urine WBC Ur Squamous Epith Cells Urine Bacteria COVID-19 ([facility]) COVID-19 Clin Com EKG Interpretation Telemetry: atrial fibrillation EKG Comments: EKG with atrial fibrillation at 106/Min; apparently conducted complexes versus PVC. Assessment and Plan (1) Rheumatic mitral stenosis: Status: Acute (2) Pulmonary hypertension: Status: Acute (3) Acute on chronic right heart failure: Status: Acute (4) Persistent atrial fibrillation: Status: Acute Agree with Bumex drip as he is currently on. Continue beta-blockers and digoxin for rate control. Continue anticoagulation. Guarded prognosis. Consider palliative care. He is not a candidate for any cardiac interventions due to mental health issues.
[2020-11-04] MEDS: Bumetanide 25 MG in Container,Empty 0 ML IVCONT (10:53)
[2020-11-04] MEDS: Metoprolol Succinate ER 25 MG TAB.ER.24H 12.5 MG PO (10:58)
[2020-11-04] MEDS: Digoxin 0.125 MG TABLET PO (10:58)
[2020-11-04] MEDS: risperiDONE 2 MG TABLET PO ×2 (10:58→20:17)
[2020-11-04] MEDS: Omeprazole 40 MG CAPSULE.DR PO (11:00)
--- NOTE | 2020-11-04 11:38 | MHC.CM.PN ---
CM met with patient at the bedside who reports he lives with his sister and nephew, amb independently. Discussed discharge plan, home no services. Nephew Syed [phone] will provide transport. CM will continue to follow patient for discharge needs.
[2020-11-04 13:35] LABS: Osmolality, Serum 278 mosm/kg (281-305)
[2020-11-04] MEDS: Docusate Sodium 100 MG CAPSULE PO (14:06)
[2020-11-04 16:54] LABS: Osmolality Urine 276 mosm/kg (373-1093)
[2020-11-04 17:04] LABS: Creatinine Urine 34.28 mg/dL; Sodium Urine Random < 20.0 mmol/L; Total Protein Urine Random 11 mg/dL (<12)
--- NOTE | 2020-11-04 19:06 | PC.NURSE ---
Pt temp 95.4 rectally. made aware.
[2020-11-05] VITALS (8 sets, daily range): BP systolic 96–143; BP diastolic 48–85; PULSE 60–105; RESP 18–20; TEMP 36.6–36.9; O2SAT 94–100; BMI 21.2
[2020-11-05] MEDS: Omeprazole 40 MG CAPSULE.DR PO (05:31)
[2020-11-05 06:42] LABS: Basophils Percent Auto 0.7 % (0-2); Hemoglobin 8.9 g/dl (14.0-18.0); Imm Gran Abs Auto 0.02 X10*3/uL (0.00-0.03); Imm Gran Pct Auto 0.3 % (0.0-0.4); Monocytes Absolute Auto 0.6 X10*3/uL (0.1-1.2); Monocytes Percent Auto 10.3 % (2-11); Red Cell Distribution Width 21.2 % (11.0-16.0)
[2020-11-05 06:44] LABS: Eosinophils Absolute Auto 0.9 X10*3/uL (0.0-0.4); Eosinophils Percent Auto 14.4 % (0-4); Hematocrit 26.8 % (42-52); Lymphocytes Absolute Auto 0.8 X10*3/uL (1.2-4.9); Lymphocytes Percent Auto 13.5 % (20-40); Mean Corpuscular HGB Conc 33.2 g/dl (31.0-36.0); Mean Corpuscular Hemoglobin 19.7 pg (27.0-33.0); Neutrophils Absolute Auto 3.6 X10*3/uL (2.0-8.3); Neutrophils Percent Auto 60.8 % (45-73); Red Blood Count 4.51 X10*6/uL (4.60-5.80); White Blood Count 5.9 X10*3/uL (4.8-10.8)
[2020-11-05 06:47] LABS: Mean Corpuscular Volume 59.4 fL (80-98); NRBC Pct Auto 1.2 /100WBC (0.0-0.2); Platelet Count 61 X10*3/uL (160-400)
[2020-11-05 07:01] LABS: INTERNATIONAL NORM RATIO 2.1 (0.9-1.1); Prothrombin Time 25.3 SEC (10.8-13.0)
[2020-11-05 07:18] LABS: Anion Gap 18 (12-20); Blood Urea Nitrogen 34 mg/dL (9-16); Carbon Dioxide 20 mmol/L (22-29); Chloride 94 mmol/L (96-108); Creatinine Clr Calc Pharmacy 55.4; Estimated Glomerular Filt Rate 59; Glucose Fasting 59 mg/dL (60-99); Magnesium 1.7 mg/dL (1.6-2.6); Potassium 3.4 mmol/l (3.3-5.1); Sodium 129 mmol/L (135-145)
[2020-11-05 08:50] LABS: Glucose, Whole Blood 133 mg/dL (60-115)
[2020-11-05] MEDS: risperiDONE 2 MG TABLET PO ×2 (08:51→20:54)
[2020-11-05] MEDS: Metoprolol Succinate ER 25 MG TAB.ER.24H 12.5 MG PO (08:51)
[2020-11-05] MEDS: Digoxin 0.125 MG TABLET PO (08:52)
--- NOTE | 2020-11-05 10:00 | PM.PNCARD ---
Subjective Subjective Date of Service: 11/05/20 Interval history: Scrotal and penile swelling is still present. Breathing seems to be okay. No anginal-type chest pains. Not feeling dizzy or syncopal. Review of Systems Constitutional: Denies headache(s) and Denies weakness Denies dizziness and Denies headache(s) Musculoskeletal: Denies numbness and Denies tingling Reports system reviewed and no additional complaints, except as documented, Denies Abnormal speech present, Denies dizziness, Denies headache(s), Denies numbness, Denies tingling and Denies weakness Physical Exam Vital Signs: Last Vital Signs Temp 98.2 F 11/05/20 07:27 Pulse 60 11/05/20 08:52 Resp 18 11/05/20 07:27 BP 123/85 11/05/20 08:51 Pulse Ox 97 11/05/20 07:27 Body Mass Index 21.2 Const General: comfortable and no acute distress [facility] Other: Unremarkable Neck Neck: Yes normal visual inspection and Yes JVD (+ve) Chest Chest palpation & inspection: normal inspection of the chest Resp Auscultation: clear to auscultation bilaterally, no crackles and no wheezes Cardio Heart sounds: S1 normal heart sound present, S2 normal heart sound present, Gallop heart sound present (suspect RV gallop), no murmurs and no rubs GI Palpation (GI): Soft to palpation Back/Spine/Pelvis Other: unremarkable Skin General skin exam: no rashes or lesions noted Neuro Speech: No Abnormal speech present Extrem General: Yes edema Psych Mental Status: mental status grossly normal Results Labs and Meds Result diagrams: 11/05/20 05:16 11/05/20 05:16 Lab results: Laboratory Tests 11/03/20 11/03/20 11/04/20 19:50 21:05 05:42 INR BUN Creatinine AST 61 H ALT 56 H Alkaline Phosphatase 134 H Troponin I High Sens 36.3 H B-Natriuretic Peptide 2580 H Albumin 2.7 L COVID-19 ([facility]) Negative 11/05/20 11/05/20 05:16 05:16 INR 2.1 H BUN 34 H Creatinine 1.26 AST ALT Alkaline Phosphatase Troponin I High Sens B-Natriuretic Peptide Albumin COVID-19 ([facility]) EKG Interpretation Telemetry: atrial fibrillation EKG Comments: Telemetry shows atrial fibrillation with a rate around 100 to 105/Min. Progress Note: A&P Assessment and plan (1) Rheumatic mitral stenosis: Status: Acute (2) Pulmonary hypertension: Status: Acute (3) Acute on chronic right heart failure: Status: Acute (4) Persistent atrial fibrillation: Status: Acute Assessment and Plan: Agree with Bumex drip as he is currently on. Continue beta-blockers and digoxin for rate control. Continue anticoagulation. Guarded prognosis. Consider palliative care. He is not a candidate for any cardiac interventions due to mental health issues. Discussed with Dr. Ortega. Fall Risk Details Current Medications: Current Medications Generic Name Dose Route Start Last Admin Trade Name Freq PRN Reason Stop Dose Admin Acetaminophen 650 mg 11/03/20 22:45 Acetaminophen 325 Mg Tablet PO Q6H PRN Pain, Mild (Pain Scale 1-3) Digoxin 0.125 mg 11/04/20 09:00 11/05/20 08:52 Digoxin 0.125 Mg Tablet PO 0.125 mg DAILY [facility] Administration Docusate Sodium 100 mg 11/03/20 22:45 11/04/20 14:06 Docusate Sodium 100 Mg Capsule PO 100 mg DAILY PRN Administration Constipation Bumetanide 25 mg/ IV 100 mls @ 2 mls/hr 11/04/20 08:45 11/04/20 10:53 Miscellaneous Supplies IVCONT 0.5 mg/hr .Q24H [facility] 2 mls/hr Administration 0.5 MG/HR Metoprolol Succinate 12.5 mg 11/04/20 09:00 11/05/20 08:51 Metoprolol Succinate Er 25 Mg Tab.Er.24h PO 12.5 mg DAILY [facility] Administration Protocol Omeprazole 40 mg 11/04/20 09:00 11/05/20 05:31 Omeprazole 40 Mg Capsule.Dr PO 40 mg DAILY@0630 [facility] Administration Ondansetron HCl 4 mg 11/03/20 22:45 Ondansetron Hcl 4 Mg/2 Ml Vial IVPUSH Q8H PRN Nausea and Vomiting Pharmacy Consult 1 each 11/03/20 20:40 Consult Rx Perform Med Rec MISCELLANE ONCE PRN Consult order Risperidone 2 mg 11/04/20 09:00 11/05/20 08:51 Risperidone 2 Mg Tablet PO 2 mg BID [facility] Administration Sodium Chloride 3 ml 11/04/20 00:00 11/05/20 08:52 0.9 % Sodium Chloride Flush 3 Ml Syringe IVFLUSH Not Given QSHIFT [facility] Warfarin Sodium 5 mg 11/04/20 18:00 Warfarin Sodium 5 Mg Tablet PO DAILY@1800 [facility] Time Spent With Patient Time: Total time spent is greater than 50% in coordination of care (as documented) at patient's floor/unit and/or counseling patient: Time with patient: 15 - 24 minutes
[2020-11-05] MEDS: Bumetanide 25 MG in Container,Empty 0 ML IVCONT (11:10)
--- NOTE | 2020-11-05 11:33 | P.PNIM_ITS ---
Subjective Subjective Date of Service: 11/05/20 Interval History: feeling less bloated Cardiovascular Cardiovascular: Reports no additional cardiovascular complaints Respiratory Respiratory: Reports no additional respiratory complaints Physical Exam Vital Signs: Vital Signs: Last Vital Signs Temp 98.1 F 11/05/20 10:57 Pulse 90 11/05/20 10:57 Resp 18 11/05/20 10:57 BP 98/62 11/05/20 10:58 Pulse Ox 100 11/05/20 10:57 Body Mass Index 21.2 General: AO X 3, no acute distress Resp: CTA bilateral CVS: S1,S2,RRR, scrotal swelling, facial swelling GI: soft, non tender, non distended Neuro: motor grossly intact Psych: impaired insight Objective Data Current Medications Generic Name Dose Route Start Last Admin Trade Name Freq PRN Reason Stop Dose Admin Acetaminophen 650 mg 11/03/20 22:45 Acetaminophen 325 Mg Tablet PO Q6H PRN Pain, Mild (Pain Scale 1-3) Digoxin 0.125 mg 11/04/20 09:00 11/05/20 08:52 Digoxin 0.125 Mg Tablet PO 0.125 mg DAILY [facility] Administration Docusate Sodium 100 mg 11/03/20 22:45 11/04/20 14:06 Docusate Sodium 100 Mg Capsule PO 100 mg DAILY PRN Administration Constipation Bumetanide 25 mg/ IV 100 mls @ 2 mls/hr 11/04/20 08:45 11/05/20 11:10 Miscellaneous Supplies IVCONT 0.5 mg/hr .Q24H [facility] 2 mls/hr Administration 0.5 MG/HR Metoprolol Succinate 12.5 mg 11/04/20 09:00 11/05/20 08:51 Metoprolol Succinate Er 25 Mg Tab.Er.24h PO 12.5 mg DAILY [facility] Administration Protocol Omeprazole 40 mg 11/04/20 09:00 11/05/20 05:31 Omeprazole 40 Mg Capsule.Dr PO 40 mg DAILY@0630 [facility] Administration Ondansetron HCl 4 mg 11/03/20 22:45 Ondansetron Hcl 4 Mg/2 Ml Vial IVPUSH Q8H PRN Nausea and Vomiting Pharmacy Consult 1 each 11/03/20 20:40 Consult Rx Perform Med Rec MISCELLANE ONCE PRN Consult order Risperidone 2 mg 11/04/20 09:00 11/05/20 08:51 Risperidone 2 Mg Tablet PO 2 mg BID [facility] Administration Sodium Chloride 3 ml 11/04/20 00:00 11/05/20 08:52 0.9 % Sodium Chloride Flush 3 Ml Syringe IVFLUSH Not Given QSHIFT [facility] Warfarin Sodium 5 mg 11/04/20 18:00 Warfarin Sodium 5 Mg Tablet PO DAILY@1800 [facility] Labs CBC & Chem 7: 11/05/20 05:16 11/05/20 05:16 Assessment and Plan (1) CHF (congestive heart failure): Problem details: acute on chronic HFpEF Status: Acute (2) Hyponatremia: Status: Acute (3) RUDY (acute kidney injury): Status: Acute (4) Elevated LFTs: Status: Acute (5) Right ventricular failure: Status: Acute (6) Severe mitral valve stenosis: Status: Acute (7) Anasarca: Status: Acute (8) Afib: Status: Acute Assessment and Plan: 52-year-old male presented with difficulty urinating and swelling acute on chronic diastolic CHF with right-sided heart failure and hepatic congestion due to severe mitral stenosis continue Bumex drip monitor electrolytes acute kidney injury due to urinary retention due to penile swelling and cardiorenal continue Alegre catheter until swelling reduced, renal function improving AFib continue Coumadin and metoprolol overall poor prognosis
--- NOTE | 2020-11-05 11:39 | PM.PNNEP ---
Subjective Subjective Date of Service: 11/05/20 Interval history: Eventsnoted Feels a little better Physical Exam Vital Signs: Vital Signs: Last Vital Signs Temp 98.1 F 11/05/20 10:57 Pulse 90 11/05/20 10:57 Resp 18 11/05/20 10:57 BP 98/62 11/05/20 10:58 Pulse Ox 100 11/05/20 10:57 Body Mass Index 21.2 Const: General: cooperative Orientation/consciousness: oriented to person Resp: Auscultation: diminished lung sounds Cardio: Heart sounds: no gallops and no rubs GI: Palpation (GI): Soft to palpation Auscultation: normal bowel sounds Skin: General skin exam: dry skin Neuro: General: oriented to person Motor exam (neuro): no asterixis Extrem: Right upper extremity: edema Assessment & Plan Assessment and plan (1) Hyponatremia: Status: Acute (2) RUDY (acute kidney injury): Status: Acute Assessment and Plan: REnal function is improving Keep on Bumex drip and O > I by 1-2 L per 24 hrs Restrict hypotonic fluids to correct hyponatremia Liver failure/Pancytopenic Excessive total body water
[2020-11-05] MEDS: Warfarin Sodium 5 MG TABLET PO (17:34)
[2020-11-05] MEDS: Docusate Sodium 100 MG CAPSULE PO (20:54)
[2020-11-05] MEDS: Acetaminophen 325 MG TABLET 650 MG PO (20:54)
[2020-11-05] MEDS: 0.9 % Sodium Chloride Flush 3 ML SYRINGE IVFLUSH (20:57)
[2020-11-06] VITALS (10 sets, daily range): BP systolic 113–147; BP diastolic 63–86; PULSE 53–93; RESP 18–22; TEMP 35.8–37.1; O2SAT 98–100; BMI 21.3
[2020-11-06] MEDS: Omeprazole 40 MG CAPSULE.DR PO (05:39)
[2020-11-06 07:27] LABS: INTERNATIONAL NORM RATIO 1.8 (0.9-1.1); Prothrombin Time 21.2 SEC (10.8-13.0)
[2020-11-06 07:30] LABS: Hemoglobin 8.9 g/dl (14.0-18.0); Imm Gran Abs Auto 0.02 X10*3/uL (0.00-0.03); Imm Gran Pct Auto 0.4 % (0.0-0.4); MANUAL DIFF FLAG SCAN; SCAN SMEAR FLAG 1
[2020-11-06 07:32] LABS: Basophils Percent Auto 0.4 % (0-2); Eosinophils Absolute Auto 0.8 X10*3/uL (0.0-0.4); Eosinophils Percent Auto 13.7 % (0-4); Hematocrit 26.2 % (42-52); Lymphocytes Absolute Auto 0.8 X10*3/uL (1.2-4.9); Lymphocytes Percent Auto 14.2 % (20-40); Mean Corpuscular Hemoglobin 20.1 pg (27.0-33.0); Monocytes Absolute Auto 0.6 X10*3/uL (0.1-1.2); Monocytes Percent Auto 10.4 % (2-11); NRBC Pct Auto 0.7 /100WBC (0.0-0.2); Neutrophils Absolute Auto 3.4 X10*3/uL (2.0-8.3); Neutrophils Percent Auto 60.9 % (45-73); Red Blood Count 4.43 X10*6/uL (4.60-5.80); Red Cell Distribution Width 21.4 % (11.0-16.0); White Blood Count 5.6 X10*3/uL (4.8-10.8)
[2020-11-06 07:55] LABS: Magnesium 1.6 mg/dL (1.6-2.6)
[2020-11-06 08:40] LABS: Anion Gap 17 (12-20); Blood Urea Nitrogen 25 mg/dL (9-16); Calcium 7.4 mg/dL (8.4-10.2); Carbon Dioxide 23 mmol/L (22-29); Chloride 94 mmol/L (96-108); Estimated Glomerular Filt Rate > 60; Glucose Fasting 57 mg/dL (60-99); Potassium 2.7 mmol/l (3.3-5.1); Sodium 131 mmol/L (135-145)
[2020-11-06] MEDS: Digoxin 0.125 MG TABLET PO (09:00)
[2020-11-06] MEDS: Magnesium Oxide 400 MG TABLET 800 MG PO (09:00)
[2020-11-06] MEDS: Metoprolol Succinate ER 25 MG TAB.ER.24H 12.5 MG PO (09:01)
[2020-11-06] MEDS: risperiDONE 2 MG TABLET PO ×2 (09:01→20:25)
[2020-11-06] MEDS: Potassium Chloride Packet 20 MEQ PACKET 40 MEQ PO ×2 (09:03→16:53)
--- NOTE | 2020-11-06 09:16 | PM.PNNEP ---
Subjective Subjective Date of Service: 11/06/20 Interval history: Events noted Diuresing well r Physical Exam Vital Signs: Vital Signs: Last Vital Signs Temp 97.8 F 11/06/20 07:28 Pulse 91 11/06/20 09:01 Resp 18 11/06/20 07:28 BP 113/69 11/06/20 09:01 Pulse Ox 100 11/06/20 07:28 Body Mass Index 21.3 Const: General: cooperative Orientation/consciousness: oriented to person Resp: Auscultation: diminished lung sounds Cardio: Heart sounds: no gallops and no rubs GI: Palpation (GI): Soft to palpation Auscultation: normal bowel sounds Skin: General skin exam: dry skin Neuro: General: oriented to person Motor exam (neuro): no asterixis Extrem: Right upper extremity: edema Assessment & Plan Assessment and plan (1) Hyponatremia: Status: Acute (2) RUDY (acute kidney injury): Status: Acute Assessment and Plan: REnal function is improving Keep on Bumex drip and O > I by 1-2 L per 24 hrs Restrict hypotonic fluids to correct hyponatremia Replace K orally Liver failure/Pancytopenic Excessive total body water
[2020-11-06 09:51] LABS: Mean Corpuscular Volume 59.1 fL (80-98); Platelet Count 54 X10*3/uL (160-400)
[2020-11-06 09:52] LABS: PLT ABN DIST 1
[2020-11-06 09:53] LABS: SLIDE REVIEW VERIFIED
--- NOTE | 2020-11-06 10:01 | P.PNCA_ITS ---
Subjective Subjective Date of Service: 11/06/20 Interval history: He states that he is feeling slightly better. Scrotal and penile swelling has come down a bit. Leg swelling is also improved. He complains of constipation. Review of Systems Review of Systems Yes all other systems are reviewed and are negative Constitutional: Denies headache(s) and Denies weakness Denies dizziness and Denies headache(s) Cardiovascular: Reports as per HPI, Reports Abdominal Distension, Denies cool extremities, Denies chest pain, Denies chest pain at rest, Denies chest pain with activity, Denies diaphoresis, Denies syncope, Reports leg edema and Reports dyspnea on exertion Respiratory: Reports dyspnea on exertion Gastrointestinal: Reports constipation Musculoskeletal: Denies numbness and Denies tingling Reports system reviewed and no additional complaints, except as documented, Denies Abnormal speech present, Denies dizziness, Denies syncope, Denies headache(s), Denies numbness, Denies tingling and Denies weakness Physical Exam Vital Signs: Last Vital Signs Temp 97.8 F 11/06/20 07:28 Pulse 91 11/06/20 09:01 Resp 18 11/06/20 07:28 BP 113/69 11/06/20 09:01 Pulse Ox 100 11/06/20 07:28 Body Mass Index 21.3 Const General: comfortable and no acute distress [facility] Other: Unremarkable Neck Neck: Yes normal visual inspection and Yes JVD (+ve) Chest Chest palpation & inspection: normal inspection of the chest Resp Auscultation: clear to auscultation bilaterally, no crackles and no wheezes Cardio Heart sounds: S1 normal heart sound present, S2 normal heart sound present, Gallop heart sound present (suspect RV gallop), no murmurs and no rubs GI Palpation (GI): Soft to palpation Back/Spine/Pelvis Other: unremarkable Skin General skin exam: no rashes or lesions noted Neuro Speech: No Abnormal speech present Extrem General: Yes edema Psych Mental Status: mental status grossly normal Results Labs and Meds Result diagrams: 11/06/20 05:24 11/06/20 05:24 Progress Note: A&P Assessment and plan (1) Rheumatic mitral stenosis: Status: Acute (2) Pulmonary hypertension: Status: Acute (3) Acute on chronic right heart failure: Status: Acute (4) Persistent atrial fibrillation: Status: Acute Assessment and Plan: So far, he has negative 2.5 L since admission. We can stop the Bumex drip. Correct potassium aggressively. Rare switched to b.i.d. Bumex for another day or so starting later in the day after the potassium is corrected. Continue beta-blockers and digoxin for rate control. Continue anticoagulation. Guarded prognosis. Consider palliative care. He is not a candidate for any cardiac interventions due to mental health issues. Discussed with Dr. Ortega. Fall Risk Details Current Medications: Current Medications Generic Name Dose Route Start Last Admin Trade Name Freq PRN Reason Stop Dose Admin Acetaminophen 650 mg 11/03/20 22:45 11/05/20 20:54 Acetaminophen 325 Mg Tablet PO 650 mg Q6H PRN Administration Pain, Mild (Pain Scale 1-3) Digoxin 0.125 mg 11/04/20 09:00 11/06/20 09:00 Digoxin 0.125 Mg Tablet PO 0.125 mg DAILY [facility] Administration Docusate Sodium 100 mg 11/03/20 22:45 11/05/20 20:54 Docusate Sodium 100 Mg Capsule PO 100 mg DAILY PRN Administration Constipation Bumetanide 25 mg/ IV 100 mls @ 2 mls/hr 11/04/20 08:45 11/05/20 11:10 Miscellaneous Supplies IVCONT 0.5 mg/hr .Q24H [facility] 2 mls/hr Administration 0.5 MG/HR Metoprolol Succinate 12.5 mg 11/04/20 09:00 11/06/20 09:01 Metoprolol Succinate Er 25 Mg Tab.Er.24h PO 12.5 mg DAILY [facility] Administration Protocol Omeprazole 40 mg 11/04/20 09:00 11/06/20 05:39 Omeprazole 40 Mg Capsule.Dr PO 40 mg DAILY@0630 [facility] Administration Ondansetron HCl 4 mg 11/03/20 22:45 Ondansetron Hcl 4 Mg/2 Ml Vial IVPUSH Q8H PRN Nausea and Vomiting Pharmacy Consult 1 each 11/03/20 20:40 Consult Rx Perform Med Rec MISCELLANE ONCE PRN Consult order Risperidone 2 mg 11/04/20 09:00 11/06/20 09:01 Risperidone 2 Mg Tablet PO 2 mg BID [facility] Administration Sodium Chloride 3 ml 11/04/20 00:00 11/06/20 09:02 0.9 % Sodium Chloride Flush 3 Ml Syringe IVFLUSH Not Given QSHIFT [facility] Warfarin Sodium 5 mg 11/04/20 18:00 11/05/20 17:34 Warfarin Sodium 5 Mg Tablet PO 5 mg DAILY@1800 [facility] Administration Time Spent With Patient Time: Total time spent is greater than 50% in coordination of care (as documented) at patient's floor/unit and/or counseling patient: Time with patient: less than 15 minutes
--- NOTE | 2020-11-06 11:03 | P.PNIM_ITS ---
Subjective Subjective Date of Service: 11/06/20 Interval History: improving Cardiovascular Cardiovascular: Reports no additional cardiovascular complaints Respiratory Respiratory: Reports no additional respiratory complaints Physical Exam Vital Signs: Vital Signs: Last Vital Signs Temp 97.8 F 11/06/20 07:28 Pulse 91 11/06/20 09:01 Resp 18 11/06/20 07:28 BP 113/69 11/06/20 09:01 Pulse Ox 100 11/06/20 07:28 Body Mass Index 21.3 General: AO X 3, anasarca improving, penile swelling present but better Resp: CTA bilateral CVS: S1,S2,RRR GI: soft, non tender, non distended Neuro: motor grossly intact Psych: impaired insight Objective Data Current Medications Generic Name Dose Route Start Last Admin Trade Name Freq PRN Reason Stop Dose Admin Acetaminophen 650 mg 11/03/20 22:45 11/05/20 20:54 Acetaminophen 325 Mg Tablet PO 650 mg Q6H PRN Administration Pain, Mild (Pain Scale 1-3) Bumetanide 3 mg 11/06/20 21:00 Bumetanide 1 Mg/4 Ml Vial IVPUSH BID [facility] Protocol Digoxin 0.125 mg 11/04/20 09:00 11/06/20 09:00 Digoxin 0.125 Mg Tablet PO 0.125 mg DAILY [facility] Administration Docusate Sodium 100 mg 11/03/20 22:45 11/05/20 20:54 Docusate Sodium 100 Mg Capsule PO 100 mg DAILY PRN Administration Constipation Metoprolol Succinate 12.5 mg 11/04/20 09:00 11/06/20 09:01 Metoprolol Succinate Er 25 Mg Tab.Er.24h PO 12.5 mg DAILY [facility] Administration Protocol Omeprazole 40 mg 11/04/20 09:00 11/06/20 05:39 Omeprazole 40 Mg Capsule.Dr PO 40 mg DAILY@0630 [facility] Administration Ondansetron HCl 4 mg 11/03/20 22:45 Ondansetron Hcl 4 Mg/2 Ml Vial IVPUSH Q8H PRN Nausea and Vomiting Pharmacy Consult 1 each 11/03/20 20:40 Consult Rx Perform Med Rec MISCELLANE ONCE PRN Consult order Potassium Chloride 40 meq 11/06/20 18:24 Potassium Chloride Packet 20 Meq Packet PO 11/06/20 18:25 ONCE ONE Risperidone 2 mg 11/04/20 09:00 11/06/20 09:01 Risperidone 2 Mg Tablet PO 2 mg BID [facility] Administration Sodium Chloride 3 ml 11/04/20 00:00 11/06/20 09:02 0.9 % Sodium Chloride Flush 3 Ml Syringe IVFLUSH Not Given QSHIFT [facility] Warfarin Sodium 5 mg 11/04/20 18:00 11/05/20 17:34 Warfarin Sodium 5 Mg Tablet PO 5 mg DAILY@1800 [facility] Administration Labs CBC & Chem 7: 11/06/20 05:24 11/06/20 05:24 Assessment and Plan (1) CHF (congestive heart failure): Problem details: acute on chronic HFpEF Status: Acute (2) Hyponatremia: Status: Acute (3) RUDY (acute kidney injury): Status: Acute (4) Elevated LFTs: Status: Acute (5) Right ventricular failure: Status: Acute (6) Severe mitral valve stenosis: Status: Acute (7) Anasarca: Status: Acute (8) Afib: Status: Acute Assessment and Plan: 52-year-old male presented with difficulty urinating and swelling acute on chronic diastolic CHF with right-sided heart failure and hepatic congestion due to severe mitral stenosis hold drip and start iv 3mg bid starting this evening monitor electrolytes hypokalemia, hypomagnesemia replace and monitor acute kidney injury due to urinary retention due to penile swelling and cardiorenal continue Alegre catheter until swelling reduced, renal function improving AFib continue Coumadin and metoprolol overall poor prognosis
--- NOTE | 2020-11-06 13:09 | MHC.CM.PN ---
Patient continues on IV Bumex for CHF. Discharge pplan is home no services. nephew will provide transport. CM will continue to follow patient for discharge needs.
[2020-11-06] MEDS: 0.9 % Sodium Chloride Flush 3 ML SYRINGE IVFLUSH ×2 (16:53→20:26)
[2020-11-06] MEDS: Warfarin Sodium 5 MG TABLET PO (16:53)
[2020-11-06] MEDS: Bumetanide 1 MG/4 ML VIAL 3 MG IVPUSH (20:25)
[2020-11-07] VITALS (7 sets, daily range): BP systolic 116–146; BP diastolic 63–99; PULSE 81–108; RESP 18; TEMP 36.3–37.2; O2SAT 98–100; BMI 21.4
[2020-11-07] MEDS: Omeprazole 40 MG CAPSULE.DR PO (05:31)
[2020-11-07 06:43] LABS: Basophils Percent Auto 0.3 % (0-2); Hemoglobin 9.1 g/dl (14.0-18.0); Imm Gran Abs Auto 0.01 X10*3/uL (0.00-0.03); Imm Gran Pct Auto 0.2 % (0.0-0.4); MANUAL DIFF FLAG SCAN; SCAN SMEAR FLAG 1
[2020-11-07 06:45] LABS: Eosinophils Absolute Auto 0.7 X10*3/uL (0.0-0.4); Hematocrit 26.7 % (42-52); Lymphocytes Absolute Auto 0.8 X10*3/uL (1.2-4.9); Lymphocytes Percent Auto 12.3 % (20-40); Mean Corpuscular HGB Conc 34.1 g/dl (31.0-36.0); Mean Corpuscular Hemoglobin 20.2 pg (27.0-33.0); Monocytes Absolute Auto 0.7 X10*3/uL (0.1-1.2); Monocytes Percent Auto 10.9 % (2-11); Neutrophils Percent Auto 65.3 % (45-73); Red Blood Count 4.51 X10*6/uL (4.60-5.80); Red Cell Distribution Width 21.7 % (11.0-16.0); White Blood Count 6.2 X10*3/uL (4.8-10.8)
[2020-11-07 06:54] LABS: INTERNATIONAL NORM RATIO 1.8 (0.9-1.1); Prothrombin Time 21.2 SEC (10.8-13.0)
[2020-11-07 07:10] LABS: Mean Corpuscular Volume 59.2 fL (80-98); NRBC Pct Auto 1.1 /100WBC (0.0-0.2); PLT ABN DIST 1; Platelet Count 53 X10*3/uL (160-400)
[2020-11-07 07:27] LABS: Anion Gap 15 (12-20); Blood Urea Nitrogen 20 mg/dL (9-16); Calcium 7.6 mg/dL (8.4-10.2); Carbon Dioxide 24 mmol/L (22-29); Chloride 95 mmol/L (96-108); Estimated Glomerular Filt Rate > 60; Glucose Fasting 54 mg/dL (60-99); Magnesium 1.5 mg/dL (1.6-2.6); Potassium 3.5 mmol/l (3.3-5.1); Sodium 130 mmol/L (135-145)
[2020-11-07 08:10] LABS: SLIDE REVIEW VERIFIED
[2020-11-07] MEDS: Bumetanide 1 MG/4 ML VIAL 3 MG IVPUSH (09:40)
[2020-11-07] MEDS: 0.9 % Sodium Chloride Flush 3 ML SYRINGE IVFLUSH ×2 (09:40→16:14)
[2020-11-07] MEDS: Metoprolol Succinate ER 25 MG TAB.ER.24H 12.5 MG PO (09:41)
[2020-11-07] MEDS: Digoxin 0.125 MG TABLET PO (09:42)
[2020-11-07] MEDS: risperiDONE 2 MG TABLET PO ×2 (09:42→21:42)
--- NOTE | 2020-11-07 09:42 | PM.PNNEP ---
Subjective Subjective Date of Service: 11/07/20 Interval history: Events noted Feels ok Physical Exam Vital Signs: Vital Signs: Last Vital Signs Temp 97.5 F 11/07/20 07:20 Pulse 108 H 11/07/20 09:42 Resp 18 11/07/20 07:20 BP 116/63 11/07/20 09:41 Pulse Ox 98 11/07/20 07:20 Body Mass Index 21.4 Const: General: cooperative Orientation/consciousness: oriented to person Resp: Auscultation: diminished lung sounds Cardio: Heart sounds: no gallops and no rubs GI: Palpation (GI): Soft to palpation Auscultation: normal bowel sounds Skin: General skin exam: dry skin Neuro: General: oriented to person Motor exam (neuro): no asterixis Extrem: Right upper extremity: edema Assessment & Plan Assessment and plan (1) Hyponatremia: Status: Acute (2) RUDY (acute kidney injury): Status: Acute Assessment and Plan: Renal function is improving Keep on Bumex and O > I by 1-2 L per 24 hrs Restrict hypotonic fluids to correct hyponatremia Liver failure/Pancytopenic Excessive total body water Time Spent With Patient Time: Total time spent is greater than 50% in coordination of care (as documented) at patient's floor/unit and/or counseling patient:
--- NOTE | 2020-11-07 09:48 | P.PNCA_ITS ---
Subjective Subjective Date of Service: 11/07/20 Interval history: Patient states that he feels okay. No new complaints. Shortness of breath is at baseline. Leg swelling is better. Scrotal and penile swelling is also better. Review of Systems Review of Systems Yes all other systems are reviewed and are negative Constitutional: Denies headache(s) and Denies weakness Denies dizziness and Denies headache(s) Cardiovascular: Reports as per HPI, Reports no additional cardiovascular complaints, Reports Abdominal Distension, Denies cool extremities, Denies painful fingertips, Denies chest pain, Denies chest pain at rest, Denies chest pain with activity, Denies diaphoresis, Denies syncope, Denies rapid heart rate, Denies pedal edema, Reports edema, Reports irregular heart rhythm, Denies claudication, Denies leg ulcers, Denies lightheadedness, Denies Loss of Consciousness, Denies radiating jaw, neck or arm pain, Reports dyspnea on exertion, Denies orthopnea and Denies paroxysmal nocturnal dyspnea Respiratory: Reports dyspnea on exertion Musculoskeletal: Denies numbness and Denies tingling Denies Abnormal speech present, Denies dizziness, Denies syncope, Denies headache(s), Denies numbness, Denies tingling and Denies weakness Physical Exam Vital Signs: Last Vital Signs Temp 97.5 F 11/07/20 07:20 Pulse 108 H 11/07/20 09:42 Resp 18 11/07/20 07:20 BP 116/63 11/07/20 09:41 Pulse Ox 98 11/07/20 07:20 Body Mass Index 21.4 Const General: comfortable and no acute distress [facility] Other: Unremarkable Neck Neck: Yes normal visual inspection and Yes JVD (+ve) Chest Chest palpation & inspection: normal inspection of the chest Resp Auscultation: clear to auscultation bilaterally, no crackles and no wheezes Cardio Heart sounds: S1 normal heart sound present, S2 normal heart sound present, Gal lop heart sound present (suspect RV gallop), no murmurs and no rubs GI Palpation (GI): Soft to palpation Back/Spine/Pelvis Other: unremarkable Skin General skin exam: no rashes or lesions noted Neuro Speech: No Abnormal speech present Extrem General: Yes edema Psych Mental Status: mental status grossly normal Results Labs and Meds Result diagrams: 11/07/20 05:31 11/07/20 05:31 Lab results: Laboratory Results - last 24 hr 11/06/20 11/07/20 11/07/20 05:24 05:31 05:31 WBC 5.6 6.2 RBC 4.43 L 4.51 L Hgb 8.9 L 9.1 L Hct 26.2 L 26.7 L MCV 59.1 L 59.2 L MCH 20.1 L 20.2 L MCHC 34.0 34.1 RDW 21.4 H 21.7 H Plt Count 54 L 53 L MPV TNP Not Reportable Immature Gran % (Auto) 0.4 0.2 Neut % (Auto) 60.9 65.3 Lymph % (Auto) 14.2 L 12.3 L [place] % (Auto) 10.4 10.9 Eos % (Auto) 13.7 H 11.0 H Baso % (Auto) 0.4 0.3 Lymph # (Auto) 0.8 L 0.8 L [place] # (Auto) 0.6 0.7 Eos # (Auto) 0.8 H 0.7 H Baso # (Auto) 0.0 0.0 Abs Immat Gran (auto) 0.02 0.01 Absolute Neuts (auto) 3.4 4.0 Absolute Nucleated RBC 0.040 H 0.070 H Nucleated RBC % (auto) 0.7 H 1.1 H Smear Tech's Comments VERIFIED VERIFIED PT INR Sodium 130 L Potassium 3.5 D Chloride 95 L Carbon Dioxide 24 Anion Gap 15 BUN 20 H Creatinine 0.84 Estim Creat Clear Calc 84.0 Estimated GFR > 60 Fasting Glucose 54 L* Calcium 7.6 L Magnesium 1.5 L 11/07/20 05:31 WBC RBC Hgb Hct MCV MCH MCHC RDW Plt Count MPV Immature Gran % (Auto) Neut % (Auto) Lymph % (Auto) [place] % (Auto) Eos % (Auto) Baso % (Auto) Lymph # (Auto) [place] # (Auto) Eos # (Auto) Baso # (Auto) Abs Immat Gran (auto) Absolute Neuts (auto) Absolute Nucleated RBC Nucleated RBC % (auto) Smear Tech's Comments PT 21.2 H INR 1.8 H Sodium Potassium Chloride Carbon Dioxide Anion Gap BUN Creatinine Estim Creat Clear Calc Estimated GFR Fasting Glucose Calcium Magnesium Progress Note: A&P Assessment and plan (1) Rheumatic mitral stenosis: Status: Acute (2) Pulmonary hypertension: Status: Acute (3) Acute on chronic right heart failure: Status: Acute (4) Persistent atrial fibrillation: Status: Acute Assessment and Plan: So far, he has negative 2.9 L since admission. Can stop Bumex IV and switch to oral Bumex 3mg bid. Continue beta-blockers and digoxin for rate control. Continue anticoagulation. Guarded prognosis. Consider palliative care. He is not a candidate for any cardiac interventions due to mental health issues. D iscussed with Dr. Ortega. Fall Risk Details Current Medications: Current Medications Generic Name Dose Route Start Last Admin Trade Name Freq PRN Reason Stop Dose Admin Acetaminophen 650 mg 11/03/20 22:45 11/05/20 20:54 Acetaminophen 325 Mg Tablet PO 650 mg Q6H PRN Administration Pain, Mild (Pain Scale 1-3) Bumetanide 3 mg 11/06/20 21:00 11/07/20 09:40 Bumetanide 1 Mg/4 Ml Vial IVPUSH 3 mg BID EUSEBIO Administration Protocol Digoxin 0.125 mg 11/04/20 09:00 11/07/20 09:42 Digoxin 0.125 Mg Tablet PO 0.125 mg DAILY EUSEBIO Administration Docusate Sodium 100 mg 11/03/20 22:45 11/05/20 20:54 Docusate Sodium 100 Mg Capsule PO 100 mg DAILY PRN Administration Constipation Metoprolol Succinate 12.5 mg 11/04/20 09:00 11/07/20 09:41 Metoprolol Succinate Er 25 Mg Tab.Er.24h PO 12.5 mg DAILY EUSEBIO Administration Protocol Omeprazole 40 mg 11/04/20 09:00 11/07/20 05:31 Omeprazole 40 Mg Capsule. PO 40 mg DAILY@0630 EUSEBIO Administration Ondansetron HCl 4 mg 11/03/20 22:45 Ondansetron Hcl 4 Mg/2 Ml Vial IVPUSH Q8H PRN Nausea and Vomiting Pharmacy Consult 1 each 11/03/20 20:40 Consult Rx Perform Med Rec MISCELLANE ONCE PRN Consult order Risperidone 2 mg 11/04/20 09:00 11/07/20 09:42 Risperidone 2 Mg Tablet PO 2 mg BID EUSEBIO Administration Sodium Chloride 3 ml 11/04/20 00:00 11/07/20 09:40 0.9 % Sodium Chloride Flush 3 Ml Syringe IVFLUSH 3 ml QSHIFT EUSEBIO Administration Warfarin Sodium 5 mg 11/04/20 18:00 11/06/20 16:53 Warfarin Sodium 5 Mg Tablet PO 5 mg DAILY@1800 EUSE[facility] Administration Time Spent With Patient Time: Total time spent is greater than 50% in coordination of care (as documented) at patient's floor/unit and/or counseling patient: Time with patient: less than 15 minutes
--- NOTE | 2020-11-07 10:02 | HO.PM.IMPN ---
Subjective Subjective Date of Service: 11/07/20 Interval History: feeling better Cardiovascular Cardiovascular: Reports no additional cardiovascular complaints Respiratory Respiratory: Reports no additional respiratory complaints Physical Exam Vital Signs: Vital Signs: Last Vital Signs Temp 97.5 F 11/07/20 07:20 Pulse 108 H 11/07/20 09:42 Resp 18 11/07/20 07:20 BP 116/63 11/07/20 09:41 Pulse Ox 98 11/07/20 07:20 Body Mass Index 21.4 General: AO X 3, no acute distress, edema improving Resp: CTA bilateral CVS: S1,S2,RRR GI: soft, non tender, non distended Neuro: motor grossly intact Psych: impaired insight Objective Data Current Medications Generic Name Dose Route Start Last Admin Trade Name Freq PRN Reason Stop Dose Admin Acetaminophen 650 mg 11/03/20 22:45 11/05/20 20:54 Acetaminophen 325 Mg Tablet PO 650 mg Q6H PRN Administration Pain, Mild (Pain Scale 1-3) Bumetanide 3 mg 11/06/20 21:00 11/07/20 09:40 Bumetanide 1 Mg/4 Ml Vial IVPUSH 3 mg BID EUSEBIO Administration Protocol Digoxin 0.125 mg 11/04/20 09:00 11/07/20 09:42 Digoxin 0.125 Mg Tablet PO 0.125 mg DAILY EUSEBIO Administration Docusate Sodium 100 mg 11/03/20 22:45 11/05/20 20:54 Docusate Sodium 100 Mg Capsule PO 100 mg DAILY PRN Administration Constipation Metoprolol Succinate 12.5 mg 11/04/20 09:00 11/07/20 09:41 Metoprolol Succinate Er 25 Mg Tab.Er.24h PO 12.5 mg DAILY EUSEBIO Administration Protocol Omeprazole 40 mg 11/04/20 09:00 11/07/20 05:31 Omeprazole 40 Mg Capsule.Dr PO 40 mg DAILY@0630 EUSEBIO Administration Ondansetron HCl 4 mg 11/03/20 22:45 Ondansetron Hcl 4 Mg/2 Ml Vial IVPUSH Q8H PRN Nausea and Vomiting Pharmacy Consult 1 each 11/03/20 20:40 Consult Rx Perform Med Rec MISCELLANE ONCE PRN Consult order Risperidone 2 mg 11/04/20 09:00 11/07/20 09:42 Risperidone 2 Mg Tablet PO 2 mg BID EUSEBIO Administration Sodium Chloride 3 ml 11/04/20 00:00 11/07/20 09:40 0.9 % Sodium Chloride Flush 3 Ml Syringe IVFLUSH 3 ml QSHIFT EUSEBIO Administration Warfarin Sodium 5 mg 11/04/20 18:00 11/06/20 16:53 Warfarin Sodium 5 Mg Tablet PO 5 mg DAILY@1800 EUSEBIO Administration Labs CBC & Chem 7: 11/07/20 05:31 11/07/20 05:31 Assessment and Plan (1) CHF (congestive heart failure): Problem details: acute on chronic HFpEF Status: Acute (2) Hyponatremia: Status: Acute (3) RUDY (acute kidney injury): Status: Acute (4) Elevated LFTs: Status: Acute (5) Right ventricular failure: Status: Acute (6) Severe mitral valve stenosis: Status: Acute (7) Anasarca: Status: Acute (8) Afib: Status: Acute Assessment and Plan: 52-year-old male presented with difficulty urinating and swelling acute on chronic diastolic CHF with right-sided heart failure and hepatic congestion due to severe mitral stenosis change to po bumex 3mg bid monitor electrolytes hypokalemia, hypomagnesemia replace and monitor acute kidney injury due to urinary retention due to penile swelling and cardiorenal resolved penile edema improved, voiding trial AFib continue Coumadin and metoprolol overall poor prognosis
[2020-11-07] MEDS: Potassium Chloride Packet 20 MEQ PACKET 40 MEQ PO (10:26)
[2020-11-07] MEDS: Magnesium Oxide 400 MG TABLET 800 MG PO (10:26)
[2020-11-07] MEDS: Bumetanide 1 MG TABLET 3 MG PO (17:21)
[2020-11-07] MEDS: Warfarin Sodium 5 MG TABLET PO (17:21)
[2020-11-07] MEDS: Potassium Chloride ER 20 MEQ TAB.ER.PRT PO (21:42)
[2020-11-08] VITALS (8 sets, daily range): BP systolic 98–147; BP diastolic 57–82; PULSE 82–100; RESP 18–20; TEMP 36.2–36.4; O2SAT 100; BMI 21.2
[2020-11-08] MEDS: 0.9 % Sodium Chloride Flush 3 ML SYRINGE IVFLUSH ×3 (00:06→17:29)
[2020-11-08] MEDS: Omeprazole 40 MG CAPSULE.DR PO (05:56)
[2020-11-08 06:38] LABS: Basophils Percent Auto 0.6 % (0-2); MANUAL DIFF FLAG SCAN; NRBC Pct Auto 0.6 /100WBC (0.0-0.2); Red Cell Distribution Width 21.8 % (11.0-16.0); SCAN SMEAR FLAG 1
[2020-11-08 06:39] LABS: INTERNATIONAL NORM RATIO 2.4 (0.9-1.1); Prothrombin Time 28.9 SEC (10.8-13.0)
[2020-11-08 06:40] LABS: Eosinophils Absolute Auto 0.9 X10*3/uL (0.0-0.4); Eosinophils Percent Auto 12.9 % (0-4); Hematocrit 26.6 % (42-52); Imm Gran Abs Auto 0.03 X10*3/uL (0.00-0.03); Imm Gran Pct Auto 0.5 % (0.0-0.4); Lymphocytes Absolute Auto 0.9 X10*3/uL (1.2-4.9); Lymphocytes Percent Auto 13.2 % (20-40); Mean Corpuscular HGB Conc 33.8 g/dl (31.0-36.0); Mean Corpuscular Hemoglobin 20.2 pg (27.0-33.0); Monocytes Absolute Auto 0.7 X10*3/uL (0.1-1.2); Monocytes Percent Auto 11.2 % (2-11); Neutrophils Absolute Auto 4.1 X10*3/uL (2.0-8.3); Neutrophils Percent Auto 61.6 % (45-73); Red Blood Count 4.45 X10*6/uL (4.60-5.80); White Blood Count 6.6 X10*3/uL (4.8-10.8)
[2020-11-08 06:56] LABS: Anion Gap 13 (12-20); Blood Urea Nitrogen 21 mg/dL (9-16); Calcium 7.6 mg/dL (8.4-10.2); Carbon Dioxide 27 mmol/L (22-29); Chloride 94 mmol/L (96-108); Creatinine Clr Calc Pharmacy 69.3; Estimated Glomerular Filt Rate > 60; Glucose Fasting 68 mg/dL (60-99); Magnesium 1.5 mg/dL (1.6-2.6); Sodium 130 mmol/L (135-145)
[2020-11-08 07:18] LABS: Mean Corpuscular Volume 59.8 fL (80-98); Platelet Count 53 X10*3/uL (160-400)
[2020-11-08 07:21] LABS: PLT ABN DIST 1
[2020-11-08 07:22] LABS: SLIDE REVIEW VERIFIED
--- NOTE | 2020-11-08 09:32 | P.PNNP_ITS ---
Subjective Subjective Date of Service: 11/08/20 Interval history: Tolerating Bumex Physical Exam Vital Signs: Vital Signs: Last Vital Signs Temp 97.5 F 11/08/20 07:43 Pulse 85 11/08/20 07:43 Resp 18 11/08/20 07:43 BP 134/82 11/08/20 07:43 Pulse Ox 100 11/08/20 07:43 Body Mass Index 21.2 Const: General: cooperative Orientation/consciousness: oriented to person Resp: Auscultation: diminished lung sounds Cardio: Heart sounds: no gallops and no rubs GI: Palpation (GI): Soft to palpation Auscultation: normal bowel sounds Skin: General skin exam: dry skin Neuro: General: oriented to person Motor exam (neuro): no asterixis Extrem: Right upper extremity: edema Objective Data Labs CBC & Chem 7: 11/08/20 05:19 11/08/20 05:19 Labs: Laboratory Results - last 24 hr 11/08/20 11/08/20 11/08/20 05:19 05:19 05:19 WBC 6.6 RBC 4.45 L Hgb 9.0 L Hct 26.6 L MCV 59.8 L MCH 20.2 L MCHC 33.8 RDW 21.8 H Plt Count 53 L MPV Not Reportable Immature Gran % (Auto) 0.5 H Neut % (Auto) 61.6 Lymph % (Auto) 13.2 L [place] % (Auto) 11.2 H Eos % (Auto) 12.9 H Baso % (Auto) 0.6 Lymph # (Auto) 0.9 L [place] # (Auto) 0.7 Eos # (Auto) 0.9 H Baso # (Auto) 0.0 Abs Immat Gran (auto) 0.03 Absolute Neuts (auto) 4.1 Absolute Nucleated RBC 0.040 H Nucleated RBC % (auto) 0.6 H Smear Tech's Comments VERIFIED PT 28.9 H D INR 2.4 H Sodium 130 L Potassium 4.0 Chloride 94 L Carbon Dioxide 27 Anion Gap 13 BUN 21 H Creatinine 1.01 Estim Creat Clear Calc 69.3 Estimated GFR > 60 Fasting Glucose 68 Calcium 7.6 L Magnesium 1.5 L Assessment & Plan Assessment and plan (1) Hyponatremia: Status: Acute (2) RUDY (acute kidney injury): Status: Acute Assessment and Plan: Renal function is improving Keep on Bumex and O > I by 1-2 L per 24 hrs Hypervolemic hyponatremia- responding to loop diuretics Restrict hypotonic fluids to correct hyponatremia Liver failure/Pancytopenic Excessive total body water Time Spent With Patient Time: Total time spent is greater than 50% in coordination of care (as documented) at patient's floor/unit and/or counseling patient:
--- NOTE | 2020-11-08 09:52 | P.PNCA_ITS ---
Subjective Subjective Date of Service: 11/08/20 Interval history: He states that he is feeling better. Shortness of breath is improved. Penile swelling is improved. Leg swelling is also improved. Review of Systems Review of Systems Yes all other systems are reviewed and are negative Constitutional: Reports as per HPI, Denies headache(s) and Denies weakness Denies dizziness and Denies headache(s) Cardiovascular: Reports as per HPI, Reports no additional cardiovascular complaints, Denies cool extremities, Denies painful fingertips, Denies chest pain, Denies chest pain at rest, Denies diaphoresis, Denies syncope, Denies rapid heart rate, Reports pedal edema, Reports edema, Denies irregular heart rhythm, Denies claudication, Reports leg edema, Denies lightheadedness, Denies Loss of Consciousness, Denies radiating jaw, neck or arm pain, Reports dyspnea on exertion, Denies orthopnea, Denies paroxysmal nocturnal dyspnea and Denies slow heart rate Respiratory: Reports dyspnea on exertion Musculoskeletal: Denies numbness and Denies tingling Reports system reviewed and no additional complaints, except as documented, Denies Abnormal speech present, Denies dizziness, Denies syncope, Denies headache(s), Denies numbness, Denies tingling and Denies weakness Physical Exam Vital Signs: Last Vital Signs Temp 97.5 F 11/08/20 07:43 Pulse 85 11/08/20 07:43 Resp 18 11/08/20 07:43 BP 134/82 11/08/20 07:43 Pulse Ox 100 11/08/20 07:43 Body Mass Index 21.2 Const General: comfortable and no acute distress [facility] Other: Unremarkable Neck Neck: Yes normal visual inspection and Yes JVD (+ve) Chest Chest palpation & inspection: normal inspection of the chest Resp Auscultation: clear to auscultation bilaterally, no crackles and no wheezes Cardio Heart sounds: S1 normal heart sound present, S2 normal heart sound present, Gallop heart sound present (suspect RV gallop), no murmurs and no rubs GI Palpation (GI): Soft to palpation Back/Spine/Pelvis Other: unremarkable Skin General skin exam: no rashes or lesions noted Neuro Speech: No Abnormal speech present Extrem General: Yes edema Psych Mental Status: mental status grossly normal Results Labs and Meds Result diagrams: 11/08/20 05:19 11/08/20 05:19 Lab results: Laboratory Results - last 24 hr 11/08/20 11/08/20 11/08/20 05:19 05:19 05:19 WBC 6.6 RBC 4.45 L Hgb 9.0 L Hct 26.6 L MCV 59.8 L MCH 20.2 L MCHC 33.8 RDW 21.8 H Plt Count 53 L MPV Not Reportable Immature Gran % (Auto) 0.5 H Neut % (Auto) 61.6 Lymph % (Auto) 13.2 L [place] % (Auto) 11.2 H Eos % (Auto) 12.9 H Baso % (Auto) 0.6 Lymph # (Auto) 0.9 L [place] # (Auto) 0.7 Eos # (Auto) 0.9 H Baso # (Auto) 0.0 Abs Immat Gran (auto) 0.03 Absolute Neuts (auto) 4.1 Absolute Nucleated RBC 0.040 H Nucleated RBC % (auto) 0.6 H Smear Tech's Comments VERIFIED PT 28.9 H D INR 2.4 H Sodium 130 L Potassium 4.0 Chloride 94 L Carbon Dioxide 27 Anion Gap 13 BUN 21 H Creatinine 1.01 Estim Creat Clear Calc 69.3 Estimated GFR > 60 Fasting Glucose 68 Calcium 7.6 L Magnesium 1.5 L Progress Note: A&P Assessment and plan (1) Rheumatic mitral stenosis: Status: Acute (2) Pulmonary hypertension: Status: Acute (3) Acute on chronic right heart failure: Status: Acute (4) Persistent atrial fibrillation: Status: Acute Assessment and Plan: So far, he has negative 2.7 L since admission. Switched to oral Bumex 3mg bid. Continue beta-blockers and digoxin for rate control. Telemetry with controlled atrial fibrillation. Continue anticoagulation. Guarded prognosis. He is not a candidate for any cardiac interventions due to mental health issues. Discharge planning. Discussed with Dr. Ortega. Fall Risk Details Current Medications: Current Medications Generic Name Dose Route Start Last Admin Trade Name Freq PRN Reason Stop Dose Admin Acetaminophen 650 mg 11/03/20 22:45 11/05/20 20:54 Acetaminophen 325 Mg Tablet PO 650 mg Q6H PRN Administration Pain, Mild (Pain Scale 1-3) Bumetanide 3 mg 11/07/20 17:00 11/07/20 17:21 Bumetanide 1 Mg Tablet PO 3 mg BID@0800,1700 [facility] Administration Protocol Digoxin 0.125 mg 11/04/20 09:00 11/07/20 09:42 Digoxin 0.125 Mg Tablet PO 0.125 mg DAILY EUSEBIO Administration Docusate Sodium 100 mg 11/03/20 22:45 11/05/20 20:54 Docusate Sodium 100 Mg Capsule PO 100 mg DAILY PRN Administration Constipation Metoprolol Succinate 12.5 mg 11/04/20 09:00 11/07/20 09:41 Metoprolol Succinate Er 25 Mg Tab.Er.24h PO 12.5 mg DAILY EUSEBIO Administration Protocol Omeprazole 40 mg 11/04/20 09:00 11/08/20 05:56 Omeprazole 40 Mg Capsule.Dr PO 40 mg DAILY@0630 [facility] Administration Ondansetron HCl 4 mg 11/03/20 22:45 Ondansetron Hcl 4 Mg/2 Ml Vial IVPUSH Q8H PRN Nausea and Vomiting Pharmacy Consult 1 each 11/03/20 20:40 Consult Rx Perform Med Rec MISCELLANE ONCE PRN Consult order Potassium Chloride 20 meq 11/07/20 21:00 11/07/20 21:42 Potassium Chloride Er 20 Meq Tab.Er.Prt PO 20 meq BID EUSEBIO Administration Risperidone 2 mg 11/04/20 09:00 11/07/20 21:42 Risperidone 2 Mg Tablet PO 2 mg BID EUSEBIO Administration Sodium Chloride 3 ml 11/04/20 00:00 11/08/20 00:06 0.9 % Sodium Chloride Flush 3 Ml Syringe IVFLUSH 3 ml QSHIFT [facility] Administration Warfarin Sodium 4 mg 11/08/20 18:00 Warfarin Sodium 4 Mg Tablet PO DAILY@1800 [facility] Time Spent With Patient Time: Total time spent is greater than 50% in coordination of care (as documented) at patient's floor/unit and/or counseling patient: Time with patient: less than 15 minutes
--- NOTE | 2020-11-08 09:53 | HO.PM.IMPN ---
Subjective Subjective Date of Service: 11/08/20 Interval History: Feeling tired today, was able to urinate after removal [place], does not feel comfortable going home today. Cardiovascular Cardiovascular: Reports no additional cardiovascular complaints Respiratory Respiratory: Reports no additional respiratory complaints Physical Exam Vital Signs: Vital Signs: Last Vital Signs Temp 97.5 F 11/08/20 07:43 Pulse 85 11/08/20 07:43 Resp 18 11/08/20 07:43 BP 134/82 11/08/20 07:43 Pulse Ox 100 11/08/20 07:43 Body Mass Index 21.2 General: lethargic, reduced swelling Resp: CTA bilateral CVS: S1,S2,RRR GI: soft, non tender, non distended Neuro: motor grossly intact Psych: impaired insight Objective Data Current Medications Generic Name Dose Route Start Last Admin Trade Name Freq PRN Reason Stop Dose Admin Acetaminophen 650 mg 11/03/20 22:45 11/05/20 20:54 Acetaminophen 325 Mg Tablet PO 650 mg Q6H PRN Administration Pain, Mild (Pain Scale 1-3) Bumetanide 3 mg 11/07/20 17:00 11/07/20 17:21 Bumetanide 1 Mg Tablet PO 3 mg BID@0800,1700 [facility]SE[facility] Administration Protocol Digoxin 0.125 mg 11/04/20 09:00 11/07/20 09:42 Digoxin 0.125 Mg Tablet PO 0.125 mg DAILY EUSEBIO Administration Docusate Sodium 100 mg 11/03/20 22:45 11/05/20 20:54 Docusate Sodium 100 Mg Capsule PO 100 mg DAILY PRN Administration Constipation Metoprolol Succinate 12.5 mg 11/04/20 09:00 11/07/20 09:41 Metoprolol Succinate Er 25 Mg Tab.Er.24h PO 12.5 mg DAILY EUSEBIO Administration Protocol Omeprazole 40 mg 11/04/20 09:00 11/08/20 05:56 Omeprazole 40 Mg Capsule.Dr PO 40 mg DAILY@0630 EUSEBIO Administration Ondansetron HCl 4 mg 11/03/20 22:45 Ondansetron Hcl 4 Mg/2 Ml Vial IVPUSH Q8H PRN Nausea and Vomiting Pharmacy Consult 1 each 11/03/20 20:40 Consult Rx Perform Med Rec MISCELLANE ONCE PRN Consult order Potassium Chloride 20 meq 11/07/20 21:00 11/07/20 21:42 Potassium Chloride Er 20 Meq Tab.Er.Prt PO 20 meq BID EUSEBIO Administration Risperidone 2 mg 11/04/20 09:00 11/07/20 21:42 Risperidone 2 Mg Tablet PO 2 mg BID EUSEBIO Administration Sodium Chloride 3 ml 11/04/20 00:00 11/08/20 00:06 0.9 % Sodium Chloride Flush 3 Ml Syringe IVFLUSH 3 ml QSHIFT EUSEBIO Administration Warfarin Sodium 4 mg 11/08/20 18:00 Warfarin Sodium 4 Mg Tablet PO DAILY@1800 [facility] Labs CBC & Chem 7: 11/08/20 05:19 11/08/20 05:19 Assessment and Plan (1) CHF (congestive heart failure): Problem details: acute on chronic HFpEF Status: Acute (2) Hyponatremia: Status: Acute (3) RUDY (acute kidney injury): Status: Acute (4) Elevated LFTs: Status: Acute (5) Right ventricular failure: Status: Acute (6) Severe mitral valve stenosis: Status: Acute (7) Anasarca: Status: Acute (8) Afib: Status: Acute Assessment and Plan: 52-year-old male presented with difficulty urinating and swelling acute on chronic diastolic CHF with right-sided heart failure and hepatic congestion due to severe mitral stenosis changed to po bumex 3mg bid, will continue to monitor inpatient monitor electrolytes hypokalemia, hypomagnesemia replace and monitor acute kidney injury due to urinary retention due to penile swelling and cardiorenal resolved penile edema improved, appears to be doing okay after removal [place], continue to monitor AFib continue Coumadin and metoprolol overall poor prognosis
[2020-11-08] MEDS: Metoprolol Succinate ER 25 MG TAB.ER.24H 12.5 MG PO (10:02)
[2020-11-08] MEDS: Potassium Chloride ER 20 MEQ TAB.ER.PRT PO ×2 (10:02→20:56)
[2020-11-08] MEDS: Digoxin 0.125 MG TABLET PO (10:03)
[2020-11-08] MEDS: risperiDONE 2 MG TABLET PO ×2 (10:03→20:56)
[2020-11-08] MEDS: Bumetanide 1 MG TABLET 3 MG PO ×2 (10:03→17:29)
[2020-11-08] MEDS: Magnesium Oxide 400 MG TABLET 800 MG PO (10:03)
[2020-11-08] MEDS: Warfarin Sodium 4 MG TABLET PO (17:29)
[2020-11-09] MEDS: 0.9 % Sodium Chloride Flush 3 ML SYRINGE IVFLUSH ×2 (00:07→07:46)
[2020-11-09 04:00] VITALS: BP 115/64; PULSE 89; RESP 18; TEMP 36.5; O2SAT 100
[2020-11-09] MEDS: Omeprazole 40 MG CAPSULE.DR PO (05:33)
[2020-11-09 06:00] VITALS: BMI 20.9
[2020-11-09 06:55] LABS: Basophils Percent Auto 0.5 % (0-2); Eosinophils Absolute Auto 0.8 X10*3/uL (0.0-0.4); Hemoglobin 8.6 g/dl (14.0-18.0); Imm Gran Abs Auto 0.01 X10*3/uL (0.00-0.03); Imm Gran Pct Auto 0.2 % (0.0-0.4); MANUAL DIFF FLAG SCAN; SCAN SMEAR FLAG 1
[2020-11-09 06:56] LABS: INTERNATIONAL NORM RATIO 2.9 (0.9-1.1); Prothrombin Time 35.2 SEC (10.8-13.0)
[2020-11-09 06:58] LABS: Eosinophils Percent Auto 13.1 % (0-4); Hematocrit 26.1 % (42-52); Lymphocytes Absolute Auto 0.8 X10*3/uL (1.2-4.9); Mean Corpuscular Hemoglobin 19.8 pg (27.0-33.0); Monocytes Absolute Auto 0.7 X10*3/uL (0.1-1.2); Monocytes Percent Auto 12.3 % (2-11); NRBC Pct Auto 0.7 /100WBC (0.0-0.2); Neutrophils Absolute Auto 3.4 X10*3/uL (2.0-8.3); Neutrophils Percent Auto 59.9 % (45-73); Red Blood Count 4.35 X10*6/uL (4.60-5.80); Red Cell Distribution Width 21.8 % (11.0-16.0); White Blood Count 5.7 X10*3/uL (4.8-10.8)
[2020-11-09 07:14] LABS: Platelet Count 47 X10*3/uL (160-400)
[2020-11-09 07:15] LABS: PLT ABN DIST 1
[2020-11-09 07:30] LABS: Anion Gap 13 (12-20); Blood Urea Nitrogen 20 mg/dL (9-16); Calcium 7.5 mg/dL (8.4-10.2); Carbon Dioxide 25 mmol/L (22-29); Chloride 96 mmol/L (96-108); Creatinine Clr Calc Pharmacy 78.5; Estimated Glomerular Filt Rate > 60; Glucose Fasting 57 mg/dL (60-99); Magnesium 1.5 mg/dL (1.6-2.6); Potassium 3.4 mmol/l (3.3-5.1); Sodium 131 mmol/L (135-145)
[2020-11-09 07:46] LABS: SLIDE REVIEW VERIFIED
[2020-11-09 08:00] VITALS: BP 126/66; PULSE 89; RESP 20; TEMP 36.8; O2SAT 99
[2020-11-09] MEDS: Bumetanide 1 MG TABLET 3 MG PO (08:40)
[2020-11-09] MEDS: Magnesium Oxide 400 MG TABLET 800 MG PO (08:40)
[2020-11-09 08:42] VITALS: BP 126/66; PULSE 89
[2020-11-09] MEDS: Metoprolol Succinate ER 25 MG TAB.ER.24H 12.5 MG PO (08:42)
[2020-11-09] MEDS: Potassium Chloride ER 20 MEQ TAB.ER.PRT PO (08:42)
[2020-11-09] MEDS: Digoxin 0.125 MG TABLET PO (08:42)
[2020-11-09] MEDS: risperiDONE 2 MG TABLET PO (08:42)
[2020-11-09 09:40] LABS: Glucose, Whole Blood 119 mg/dL (60-115)
--- NOTE | 2020-11-09 10:02 | P.DS_ITS ---
DS: Providers Provider Date of admission: 11/03/20 21:50 Primary care physician: Unknown Physician Consults: 11/03/20 22:45 Consult to Cardiology Routine Consulting Provider: Kobe Melo Reason for consultation: CHF exacerbation Has provider been notified: No 11/04/20 05:22 Consult to Nephrology Routine Consulting Provider: [facility] Reason for consultation: hyponatremia Has provider been notified: No DS: Diagnosis Discharge Diagnosis (1) Rheumatic mitral stenosis: Status: Acute (2) Pulmonary hypertension: Status: Acute (3) Acute on chronic right heart failure: Status: Acute (4) Persistent atrial fibrillation: Status: Acute DS: Medications Discharge Medications Home Medications: Home Medications Medication Instructions Recorded Confirmed digoxin [Digitek] 125 mcg PO DAILY 09/12/20 11/04/20 omeprazole 40 mg PO DAILY 09/12/20 11/04/20 risperidone 2 mg PO BID 09/12/20 11/04/20 warfarin 7.5 mg PO DAILY 09/12/20 11/05/20 clotrimazole 1 appl TOPICAL BID 11/04/20 11/04/20 Previous Rx's Medication Instructions Recorded cetirizine 10 mg PO DAILY #30 tab 10/08/20 epinephrine [EpiPen 2-Sumeet] 0.3 mg IM Q10M PRN #2 ea 10/08/20 metoprolol succinate 12.5 mg PO DAILY #15 tab 10/08/20 bumetanide 3 mg PO BID@0800,1700 #60 tab 11/09/20 magnesium oxide 800 mg PO DAILY #30 tab 11/09/20 potassium chloride [Klor-Con M20] 20 meq PO BID #60 tab 11/09/20 DS: Summary Hospital Course Hospital Course: Patient was admitted for acute on chronic diastolic CHF and right-sided heart failure due to severe mitral stenosis complicated by hepatic congestion, penile swelling causing urinary retention and acute kidney injury. Patient was started on Bumex drip and diuresed well. His edema improved, Alegre was able to be removed and patient able to urinate freely, renal function returned to baseline. Patient's Bumex was increased from 2 mg b.i.d. to 3 mg b.i.d.. He will be continued on potassium and magnesium supplements. He will be discharged home. Time Spent with Patient Time attestation: Total time spent providing and/or coordinating discharge services: Physical Exam Vital Signs: Vital Signs: Last Vital Signs Temp 98.2 F 11/09/20 08:00 Pulse 89 11/09/20 08:42 Resp 20 11/09/20 08:00 BP 126/66 11/09/20 08:42 Pulse Ox 99 11/09/20 08:00 Body Mass Index 20.9 General: AO X 3, no acute distress Resp: CTA bilateral CVS: S1,S2,RRR GI: soft, non tender, non distended Neuro: motor grossly intact Psych: impaired insight DS: Data Data Completed and Pending Labs on day of discharge: 11/03/20 CT abdomen pelvis wo con Stat 11/03/20 Breakfast Low Sodium Diet 11/03/20 18:13 Lidocaine HCl 2 % Urojet [Xylocaine 2 % Urojet] 10 ml TOPICAL ONCE ONE 11/03/20 18:25 XR chest 1V Stat 11/03/20 18:26 ECG 12 lead EKG Stat EKG Documentation DIRECTED 11/03/20 19:10 Lidocaine HCl 2 % Urojet [Xylocaine 2 % Urojet] 10 ml TOPICAL ONCE ONE 11/03/20 19:13 Lidocaine HCl 2 % Urojet [Xylocaine 2 % Urojet] 10 ml .ROUTE .STK-MED ONE 11/03/20 19:50 B Type Natriuretic Peptide Stat Basic Metabolic Panel Stat Complete Blood Count Man Dif Stat Hold Lt Blue - Possible Coag Stat Liver Panel Stat Magnesium Stat Prothrombin Time INR Stat Troponin-I High Sensitivity Stat 11/03/20 20:40 0.9 % Sodium Chloride [Ns] 500 ml IV 999 mls/hr 11/03/20 21:05 COVID-19 ID NOW (Covarrubias) Stat 11/03/20 21:12 Bumetanide [Bumex] 1 mg IVPUSH ONCE ONE 11/03/20 21:14 Bumetanide [Bumex] 2 mg IVPUSH ONCE ONE 11/03/20 21:21 Add Laboratory Test Stat 11/03/20 21:40 Transfer Order Routine 11/03/20 22:45 Bumetanide [Bumex] 2 mg IVPUSH BID ONE 11/03/20 22:45 IV insert/maintain Q4HR Intake and Output Q8HR Vital Signs Q4HR 11/04/20 04:12 Basic Metabolic Panel Routine Complete Blood Count Auto Diff Routine SLIDE REVIEW Routine 11/04/20 05:42 Liver Panel DAILY@0600 11/04/20 08:45 Container,Empty 0 ml Bumetanide [Bumex] 25 mg IVCONT 0.5 mg/hr 11/04/20 12:50 Osmolality, Serum Routine 11/04/20 15:25 Creatinine Urine Routine Osmolality Urine Routine Sodium Urine Random Routine Total Protein Urine Random Routine 11/04/20 18:00 Warfarin Sodium [Coumadin] 5 mg PO DAILY@1800 11/05/20 05:16 BMP [Basic Metabolic Panel Fasting] Routine Complete Blood Count Auto Diff Routine Magnesium Routine Prothrombin Time INR DAILY@0600 11/05/20 08:44 Glucose, Whole Blood Routine 11/06/20 05:24 BMP [Basic Metabolic Panel Fasting] Routine Complete Blood Count Auto Diff Routine Magnesium Routine Prothrombin Time INR DAILY@0600 SLIDE REVIEW Routine 11/06/20 08:41 Magnesium Oxide [Mag-Ox] 800 mg PO ONCE ONE Potassium Chloride Packet [Klor-Con Packet] 40 meq PO ONCE ONE 11/06/20 18:24 Potassium Chloride Packet [Klor-Con Packet] 40 meq PO ONCE ONE 11/06/20 21:00 Bumetanide [Bumex] 3 mg IVPUSH BID 11/07/20 05:31 BMP [Basic Metabolic Panel Fasting] Routine Complete Blood Count Auto Diff Routine Magnesium Routine Prothrombin Time INR DAILY@0600 SLIDE REVIEW Routine 11/07/20 09:31 Magnesium Oxide [Mag-Ox] 800 mg PO ONCE ONE Potassium Chloride Packet [Klor-Con Packet] 40 meq PO ONCE ONE 11/08/20 05:19 BMP [Basic Metabolic Panel Fasting] Routine Complete Blood Count Auto Diff Routine Magnesium Routine Prothrombin Time INR DAILY@0600 SLIDE REVIEW Routine 11/08/20 07:06 Magnesium Oxide [Mag-Ox] 800 mg PO ONCE ONE 11/09/20 05:38 Prothrombin Time INR DAILY@0600 11/09/20 05:39 BMP [Basic Metabolic Panel Fasting] Routine Complete Blood Count Auto Diff Routine Magnesium Routine SLIDE REVIEW Routine 11/09/20 09:35 Glucose, Whole Blood Routine Laboratory Last Values WBC 5.7 X10*3/uL (4.8-10.8) 11/09/20 05:39 RBC 4.35 X10*6/uL (4.60-5.80) L 11/09/20 05:39 Hgb 8.6 g/dl (14.0-18.0) L 11/09/20 05:39 Hct 26.1 % (42-52) L 11/09/20 05:39 MCV 60.0 fL (80-98) L 11/09/20 05:39 MCH 19.8 pg (27.0-33.0) L 11/09/20 05:39 MCHC 33.0 g/dl (31.0-36.0) 11/09/20 05:39 RDW 21.8 % (11.0-16.0) H 11/09/20 05:39 Plt Count 47 X10*3/uL (160-400) L 11/09/20 05:39 MPV Not Reportable 11/09/20 05:39 Immature Gran % (Auto) 0.2 % (0.0-0.4) 11/09/20 05:39 Neut % (Auto) 59.9 % (45-73) 11/09/20 05:39 Lymph % (Auto) 14.0 % (20-40) L 11/09/20 05:39 Leake % (Auto) 12.3 % (2-11) H 11/09/20 05:39 Eos % (Auto) 13.1 % (0-4) H 11/09/20 05:39 Baso % (Auto) 0.5 % (0-2) 11/09/20 05:39 Lymph # (Auto) 0.8 X10*3/uL (1.2-4.9) L 11/09/20 05:39 Leake # (Auto) 0.7 X10*3/uL (0.1-1.2) 11/09/20 05:39 Eos # (Auto) 0.8 X10*3/uL (0.0-0.4) H 11/09/20 05:39 Baso # (Auto) 0.0 X10*3/uL (0.0-0.2) 11/09/20 05:39 Abs Immat Gran (auto) 0.01 X10*3/uL (0.00-0.03) 11/09/20 05:39 Absolute Neuts (auto) 3.4 X10*3/uL (2.0-8.3) 11/09/20 05:39 Absolute Nucleated RBC 0.040 X10*3/uL (0.0-0.012) H 11/09/20 05:39 Nucleated RBC % (auto) 0.7 /100WBC (0.0-0.2) H 11/09/20 05:39 Neutrophils % (Manual) 68 % (45-73) 11/03/20 19:50 Band Neutrophils % 0 % (3-5) L 11/03/20 19:50 Lymphocytes % (Manual) 14 % (20-40) L 11/03/20 19:50 Monocytes % (Manual) 12 % (2-11) H 11/03/20 19:50 Eosinophils % (Manual) 6 % (0-4) H 11/03/20 19:50 Abs Neuts (Manual) 4.1 X10*3/uL (2.2-7.9) 11/03/20 19:50 Lymphocytes # (Manual) 0.9 X10*3/uL (0.6-4.8) 11/03/20 19:50 Monocytes # (Manual) 0.7 X10*3/uL (0.0-1.2) 11/03/20 19:50 Eosinophils # (Manual) 0.4 X10*3/UL (0.0-0.8) 11/03/20 19:50 Nucleated RBCs 6 /100WBC (0-0) H 11/03/20 19:50 Platelet Estimate DECREASED (NORMAL) 11/03/20 19:50 Large Platelets PRESENT 11/03/20 19:50 Plt Morphology Comment NOTED 11/03/20 19:50 RBC Morphology NOTED 11/03/20 19:50 Hypochromasia 2+ 11/03/20 19:50 Microcytosis 2+ 11/03/20 19:50 Target Cells 1+ 11/03/20 19:50 Acanthocytes (Spur) 2+ 11/03/20 19:50 Smear Tech's Comments VERIFIED 11/09/20 05:39 Smear Path Review SEE NOTE 11/03/20 19:50 PT 35.2 SEC (10.8-13.0) H D 11/09/20 05:38 INR 2.9 (0.9-1.1) H 11/09/20 05:38 Hold Blue Top SEE NOTE 11/03/20 19:50 Sodium 131 mmol/L (135-145) L 11/09/20 05:39 Potassium 3.4 mmol/l (3.3-5.1) 11/09/20 05:39 Chloride 96 mmol/L (96-108) 11/09/20 05:39 Carbon Dioxide 25 mmol/L (22-29) 11/09/20 05:39 Anion Gap 13 (12-20) 11/09/20 05:39 BUN 20 mg/dL (9-16) H 11/09/20 05:39 Creatinine 0.88 mg/dL (0.5-1.4) 11/09/20 05:39 Estim Creat Clear Calc 78.5 11/09/20 05:39 Estimated GFR > 60 11/09/20 05:39 POC Glucose 119 mg/dL (60-115) H 11/09/20 09:35 Random Glucose 99 mg/dL (60-115) D 11/04/20 04:12 Fasting Glucose 57 mg/dL (60-99) L* 11/09/20 05:39 Osmolality 278 mosm/kg (281-305) L 11/04/20 12:50 Calcium 7.5 mg/dL (8.4-10.2) L 11/09/20 05:39 Magnesium 1.5 mg/dL (1.6-2.6) L 11/09/20 05:39 Total Bilirubin 7.9 mg/dL (0.0-1.0) H 11/04/20 05:42 Direct Bilirubin 5.3 mg/dL (0.0-0.5) H 11/04/20 05:42 AST 61 U/L (5-37) H 11/04/20 05:42 ALT 56 U/L (0-40) H 11/04/20 05:42 Alkaline Phosphatase 134 U/L (39-117) H 11/04/20 05:42 Troponin I High Sens 36.3 ng/L (<3.5-35.0) H 11/03/20 19:50 B-Natriuretic Peptide 2580 pg/mL (<100) H 11/03/20 19:50 Total Protein 6.4 g/dL (6.5-8.0) L 11/04/20 05:42 Albumin 2.7 g/dL (3.5-5.0) L 11/04/20 05:42 Urine Color YELLOW 11/03/20 19:55 Urine Appearance CLEAR 11/03/20 19:55 Urine pH 5.5 (5.0-8.0) 11/03/20 19:55 Ur Specific [place] 1.020 (1.005-1.025) 11/03/20 19:55 Urine Protein 1+ MG/DL (NEG-TRACE) H 11/03/20 19:55 Urine Glucose (UA) NEG MG/DL (NEG) 11/03/20 19:55 Urine Ketones NEG MG/DL (NEG) 11/03/20 19:55 Urine Blood TRACE (NEG) 11/03/20 19:55 Urine Nitrite NEG (NEG) 11/03/20 19:55 Ur Leukocyte Esterase NEG (NEG) 11/03/20 19:55 Urine RBC 1-4 /HPF (0) 11/03/20 19:55 Urine WBC 0-2 /HPF (0-4) 11/03/20 19:55 Ur Squamous Epith Cells TRACE /LPF 11/03/20 19:55 Urine Bacteria TRACE /LPF 11/03/20 19:55 Urine Osmolality 276 mosm/kg (373-1093) L 11/04/20 15:25 U Random Total Protein 11 mg/dL (<12) 11/04/20 15:25 Ur Random Sodium < 20.0 mmol/L 11/04/20 15:25 Urine Creatinine 34.28 mg/dL 11/04/20 15:25 COVID-19 ([facility]) Negative (Negative) 11/03/20 21:05 COVID-19 Clin Com See Note 11/03/20 21:05 Discharge Plan Discharge Patient Disposition: Home, Self-Care Referrals: Peggy Benites MD [Physician] - 1 Week (Nurse will call you with a follow up appointment) Discharge Medications: New potassium chloride [Klor-Con M20] 20 mEq Tablet,Er Particles/Crystals 20 meq PO BID Qty: 60 RF: 0 magnesium oxide 400 mg (241.3 mg magnesium) Tablet 800 mg PO DAILY Qty: 30 RF: 0 Continued clotrimazole 1 % Cream 1 appl TOPICAL BID RF: 0 warfarin 7.5 mg Tablet 7.5 mg PO DAILY RF: 0 Hold Instructions: Resume on 10/10/20. hold until INR is <3, then resume omeprazole 40 mg Capsule,Delayed Release(Dr/Ec) 40 mg PO DAILY RF: 0 risperidone 2 mg Tablet 2 mg PO BID RF: 0 digoxin [Digitek] 125 mcg (0.125 mg) Tablet 125 mcg PO DAILY RF: 0 metoprolol succinate 25 mg tablet extended release 24 hr 12.5 mg PO DAILY Qty: 15 RF: 1 cetirizine 10 mg tablet 10 mg PO DAILY Qty: 30 RF: 0 epinephrine [EpiPen 2-Sumeet] 0.3 mg/0.3 mL auto-injector 0.3 mg IM Q10M PRN (Reason: anaphylaxis) Qty: 2 RF: 0 Changed bumetanide 1 mg Tablet 3 mg PO BID@0800,1700 Qty: 60 RF: 0 Discharge Orders: Discharge Order (Routine); Ordered 11/09/20 Ordered By: Mehdi Ortega Activity on Discharge: As tolerated Visit Report Forms: Patient Portal Discharge page Care Plan Goals: avoid fluid overload Health Concerns: chf Plan of Treatment: increased bumex to 3mg bid, k and mg supplement
--- NOTE | 2020-11-09 10:11 | MHC.CM.PN ---
Pt cleared for DC today. CM attempted to contact his nephew Syed ([phone]) who will be providing pts transportation at DC per notes. Pts sister, Michelle answered the call and reported Syed would be picking the pt up. She asks that they be called when the pt is ready
== END 2020-11-09 12:05 | disposition home or self-care (01) | DRG 194 ==
LOC: HO.ED 18:34 → HO.IMC 22:04
PROVIDERS: Internal Medicine Hypertension Specialist; Nurse Practitioner Family; Admitting Provider Internal Medicine; Emergency Provider Emergency Medicine; Visit Provider Internal Medicine
DX: I50.33 Acute on chronic diastolic (congestive) heart failure (principal); N17.9 Acute kidney failure, unspecified; D61.818 Other pancytopenia; I27.20 Pulmonary hypertension, unspecified; E87.1 Hypo-osmolality and hyponatremia; Z79.01 Long term (current) use of anticoagulants; I48.19 Other persistent atrial fibrillation; I05.0 Rheumatic mitral stenosis; K76.1 Chronic passive congestion of liver; Z20.828 Contact with and (suspected) exposure to other viral communicable diseases; Z87.820 Personal history of traumatic brain injury; Z79.899 Other long term (current) drug therapy
CPT/HCPCS: 36415; 51798; 71045; 74176; 80048; 80076; 81001; 81003; 82947; 83735; 83880; 83930; 83935; 84156; 84300; 84484; 85007; 85025; 85027; 85060; 85610; 87635; 93005; 96374; 96375; 99225; 99285

== ENCOUNTER 2020-11-19 10:03 | Inpatient (IN) | payer MEDICAID, SELFPAY ==
[2020-11-19] VITALS (15 sets, daily range): BP systolic 88–122; BP diastolic 46–75; PULSE 64–99; RESP 7–20; TEMP 32.2–36.4; O2SAT 94–100; BMI 22.6
--- NOTE | 2020-11-19 10:16 | ECG_ITS ---
Test Reason : HYPO Blood Pressure : / mmHG Vent. Rate : 071 BPM Atrial Rate : 101 BPM P-R Int : 000 ms QRS Dur : 112 ms QT Int : 472 ms P-R-T Axes : 000 112 027 degrees QTc Int : 512 ms Atrial fibrillation Right axis deviation Pulmonary disease pattern Prolonged QT Abnormal ECG When compared with ECG of 03-NOV-2020 19:40, Vent. rate has decreased BY 35 BPM Referred By: Elisha Cleveland Electronically Signed By:THOMAS JIMENEZ MD
--- NOTE | 2020-11-19 10:24 | CT_ITS ---
EXAMINATION: CT CHEST, ABDOMEN AND PELVIS WITHOUT IV CONTRAST CLINICAL INFORMATION: Shortness of breath and fluid overload. Anasarca. COMPARISON: Previous CT of the abdomen and pelvis most recent 11/03/2020 and previous chest x-rays most recent 11/03/2020 TECHNIQUE: Axial images through the chest, abdomen and pelvis without oral or IV contrast. Sagittal and coronal reconstructions on the technologist workstation were performed. Patient dose 331 + 1004 mgy/cm. This CT examination was performed using dose optimization techniques as appropriate, variously including the following: *Automated exposure control *Adjustment of mA and/or kV according to patient size (this includes techniques or standardized protocols for targeted exams where dose is matched to indication/reason for exam; i.e. extremities or head) *Use of iterative reconstruction technique FINDINGS: Chest: The heart is enlarged. There is a small to moderate pericardial effusion. Thoracic aorta is normal in caliber. No enlarged hilar or mediastinal lymph nodes are seen. There is compressive atelectasis of the left lower lobe adjacent to the effusion. The lungs are otherwise clear. There is a moderate to large right pleural effusion. There is a very small left pleural effusion. No chest wall mass or enlarged axillary lymph nodes are seen. There is diffuse anasarca. Abdomen and pelvis: The liver is unremarkable. The gallbladder is unremarkable. There is no biliary duct dilatation. The spleen is unremarkable. The pancreas is unremarkable. The adrenal glands and kidneys are unremarkable. Bladder is unremarkable. The prostate gland does not appear enlarged. Small and large bowel is unremarkable. The appendix is unremarkable. There is a large amount of ascites. No adenopathy is seen. No hernia is seen. There is diffuse anasarca. There is slight loss of height of the L1 and L3 vertebral body suggestive of mild old compression fractures. There are right lateral lower left rib fractures. CT/CT abdomen pelvis wo con IMPRESSION: Chest: Enlarged heart and small to moderate pericardial effusion. Large right pleural effusion. Tiny left pleural effusion. Abdomen and pelvis: Large amount of ascites. Findings diffuse soft tissue edema or anasarca.
--- NOTE | 2020-11-19 10:24 | CT_ITS ---
EXAMINATION: CT HEAD WITHOUT CONTRAST CLINICAL INFORMATION: Slurred speech. COMPARISON: Previous exam May 2018 TECHNIQUE: Contiguous axial imaging was performed from the skull base to vertex without intravenous administration of contrast. This CT examination was performed using dose optimization techniques as appropriate, variously including the following: *Automated exposure control *Adjustment of mA and/or kV according to patient size (this includes techniques or standardized protocols for targeted exams where dose is matched to indication/reason for exam; i.e. extremities or head) *Use of iterative reconstruction technique DLP: 724 mGy-cm FINDINGS: There is no evidence of acute intracranial hemorrhage or territorial infarction. No abnormal mass effect or midline shift is seen. Rosen to white matter differentiation is well preserved. No extra-axial fluid collections are identified. The ventricles are normal in size. There is no abnormal attenuation within the brain parenchyma. The osseous structures and soft tissues are normal. The mastoid air cells and visualized portions of the paranasal sinuses are well aerated. CT/CT head/brain wo con IMPRESSION: No acute intracranial pathology.
--- NOTE | 2020-11-19 10:24 | ED.GENADULT ---
HPI - General Adult General Chief complaint: General Medical Stated complaint: abd swelling Time Seen by Provider: 11/19/20 10:15 Source: patient and EMS Mode of arrival: EMS Limitations: altered mental status History of Present Illness HPI narrative: 60 yo male with history of right sided heart failure, anasarca, pulmonary HTN, afib on Coumadin and digoxin, mitral stenosis 2/2 Rheumatic heart disease, hx TBI, schizophrenia presenting with abdominal pain. He is a very vague historian. He states he has had abdominal pain and fluid overload for 2 years. He was recently admitted here from 11/04 -11/09 for fluid overload/CHF as well as 09/29-10/08. He was discharged on Bumex 3 mg PO BID. Known to be poorly compliant. He reports chronic SOB, worse when laying flat. He states his abdomen has been getting bigger and more painful lately but is unable to further characterize. He denies N/V/D, fever chills. He denies chest pain. MD complaint: abdominal pain Onset (ago): month(s) Location: abdomen Radiation: non-radiation Severity: moderate Quality: aching Pain Consistency: constant Relieving factors: none Exacerbating factors: none Associated symptoms: denies other symptoms Treatments prior to arrival: none Related Data Home Medications Medication Instructions Recorded Confirmed digoxin [Digitek] 125 mcg PO DAILY 09/12/20 11/04/20 omeprazole 40 mg PO DAILY 09/12/20 11/04/20 risperidone 2 mg PO BID 09/12/20 11/04/20 warfarin 7.5 mg PO DAILY 09/12/20 11/05/20 clotrimazole 1 appl TOPICAL BID 11/04/20 11/04/20 Previous Rx's Medication Instructions Recorded cetirizine 10 mg PO DAILY #30 tab 10/08/20 epinephrine [EpiPen 2-Sumeet] 0.3 mg IM Q10M PRN #2 ea 10/08/20 metoprolol succinate 12.5 mg PO DAILY #15 tab 10/08/20 bumetanide 3 mg PO BID@0800,1700 #60 tab 11/09/20 magnesium oxide 800 mg PO DAILY #30 tab 11/09/20 potassium chloride [Klor-Con M20] 20 meq PO BID #60 tab 11/09/20 Allergies Allergy/AdvReac Type Severity Reaction Status Date / Time Fish Containing Products Allergy Unknown UNKNOWN Verified 09/12/20 07:09 PEPPERS, JALAPENO Allergy Unknown UNKNOWN Uncoded 09/12/20 07:09 Review of Systems Review of Systems: Constitutional: No Fever, No Chills ENT/Mouth: No sore throat, No Rhinorrhea, No Swallowing Difficulty Eyes: No Eye Pain, No Swelling, No Redness Cardiovascular: No Chest Pain, + SOB, + Orthopnea, + Edema Respiratory: No Cough, No Sputum, No Wheezing, No dyspnea Gastrointestinal: No Nausea, No Vomiting, No Diarrhea, + abdominal Pain, No Hematochezia, No Melena Genitourinary: No Dysuria, No Urinary Frequency, No Hematuria Musculoskeletal: No joint pain, + Myalgias Skin: No Skin Lesions, No rash, +swelling Neuro: + Weakness, No Numbness, No Dizziness, No Headache Psych: No Anxiety/Panic, No Depression Heme/Lymph: No Bruising, No Lymphadenopathy Endocrine: No Polyuria, No Polydipsia PMFSH Past Medical History Attestation statement: The following information was validated with the patient. Medical History Acute on chronic right heart failure Afib CHF (congestive heart failure) Hepatic encephalopathy Persistent atrial fibrillation Pulmonary hypertension Quit consuming alcohol in remote past Rheumatic mitral stenosis Schizophrenia Severe mitral valve stenosis Traumatic brain injury Family History Family History Father No problems noted. Mother HTN (hypertension) Social History Social History Household Members: Family Housing: House Alcohol intake: unknown Smoking Status: Current every day smoker Smoked in Last 30 Days: Yes Use of substances other than those prescribed or required for medical reasons: Unknown Advance Directives: No Advance Directives Information Provided: Yes service: No Current occupational status: unemployed Physical Exam Vital Signs: Vital Signs: Last Vital Signs Temp 95.0 F L 11/19/20 15:25 Pulse 74 11/19/20 15:25 Resp 13 11/19/20 15:25 BP 96/46 L 11/19/20 15:25 Pulse Ox 99 11/19/20 15:25 Body Mass Index 22.6 Appearance: Chronically ill appearing, no distress, awake and alert Eyes: Pupils equal, round and reactive to light. Mild scleral icterus ENT: Pharynx normal. Neck: Normal inspection. Neck supple. No JVD appreciated CVS: irregularly irregular, regular rate, distant heart sounds with +mumur Respiratory: No respiratory distress. Significantly diminished throughout, shallow breathing. Abdomen: Distended and tense with mild diffuse tenderness. Pitting edema with diffuse anasarca with extending from thighs to upper chest Skin: Skin cool and dry. Normal skin color. Increased skin turgor. Extremities: thin, cool with 2+ pitting edema, chronic venous stasis changes of bilateral LE. Neuro: Oriented X 3. Generalized weakness. Non-focal. Speech is slurred at times and difficult to understand. Follows commands and moves all extremities Course Course Course Narrative: 60 y/o chronically ill male with multiple comorbidities and several admissions here for CHF/fluid overload presenting with abdominal pain and distention. Found to be hypothermic to 90 degrees rectally on arrival with diffuse anasarca and pitting edema up to his chest. No respiratory distress and hemodynamically stable. Will panculture, panscan and give IV bumex now. Will require admission. Reevaluation(s) Reevaluation #1: 12:40 - spoke with Dr. Barrios for evaluation and possible ICU admission - patient has acute renal failure, persistent hypothermia despite Fransico hugger and soft BP 80-90s systolic. Likely all related to volume overload/anasarca and medication non-compliance. Doubt sepsis. He has made minimal urine after 2 mg IVP Bumex. Concern for cardiorenal syndrome. TSH elevated but T4 is normal. Doubt myxedema coma, HR normal. Cortisol pending. He is no respiratory distress and not hypoxic. Dr. Barrios is recommending slow warming, Cardiology evaluation, ECHO and admission to IMC. If he decompensates further will require upgrade to ICU level of care. Cards pages and ECHO ordered. Reevaluation #2: 2:16 - BP remains soft 91/71, temperature slowly rising. Getting 3rd albumin bolus. Bumex gtt ordered. Spoke with Dr. Melo from Cardiology who is recommending fluid removal and ECHO. Prognosis is poor given known non-compliance and advanced heart failure. Hospitalist made aware of ICU recommendation to admit to IMC. Will get to goal temp of 95 degress and continue to monitor hemodynamics closely as he is warmed. Attempted to call patient's brother who is now his legal decision maker but there was no answer. Reevaluation #3: 2:56: BP stabilizing after albumin, SBP now 101. UOP 75cc so far. Bumex drip is hung. 4:20pm - spoke with Manager Of Employee Relations given poor response to Bumex - recommended adding Diuril and reassessing response in the morning and having further discussions about [employer] and goals of care at that time. Hospitalist [place] [facility] [place] Medical Decision Making Lab Data Result diagrams: 11/19/20 10:59 11/19/20 10:59 Labs: Lab Results 11/19/20 11/19/20 11/19/20 Range/Units 10:56 10:56 10:57 WBC (4.8-10.8) X10*3/uL RBC (4.60-5.80) X10*6/uL Hgb (14.0-18.0) g/dl Hct (42-52) % MCV (80-98) fL MCH (27.0-33.0) pg MCHC (31.0-36.0) g/dl RDW (11.0-16.0) % Plt Count (160-400) X10*3/uL MPV Immature Gran % (Auto) (0.0-0.4) % Neut % (Auto) (45-73) % Lymph % (Auto) (20-40) % [place] % (Auto) (2-11) % Eos % (Auto) (0-4) % Baso % (Auto) (0-2) % Lymph # (Auto) (1.2-4.9) X10*3/uL [place] # (Auto) (0.1-1.2) X10*3/uL Eos # (Auto) (0.0-0.4) X10*3/uL Baso # (Auto) (0.0-0.2) X10*3/uL Abs Immat Gran (auto) (0.00-0.03) X10*3/uL Absolute Neuts (auto) (2.0-8.3) X10*3/uL Absolute Nucleated RBC (0.0-0.012) X10*3/uL Nucleated RBC % (auto) (0.0-0.2) /100WBC Smear Tech's Comments PT (10.8-13.0) SEC INR (0.9-1.1) APTT (24.1-38.0) SEC VBG pH (7.32-7.43) VBG pCO2 mmhg VBG pO2 mmhg VBG HCO3 mmol/L VBG O2 Saturation % VBG Base Excess mmol/L Sodium Potassium Chloride Carbon Dioxide Anion Gap BUN Creatinine Estim Creat Clear Calc Estimated GFR Random Glucose Lactic Acid 2.1 H* (0.5-2.0) mmol/L Lactic Acid Fup @ 2Hr (0.5-2.0) mmol/L Calcium Magnesium (1.6-2.6) mg/dL Total Bilirubin (0.0-1.0) mg/dL Direct Bilirubin (0.0-0.5) mg/dL AST (5-37) U/L ALT (0-40) U/L Alkaline Phosphatase (39-117) U/L Ammonia (13-55) umol/L Lactate Dehydrogenase Troponin I High Sens 20.7 (<3.5-35.0) ng/L B-Natriuretic Peptide 1951 H (<100) pg/mL Total Protein (6.5-8.0) g/dL Albumin (3.5-5.0) g/dL Lipase (8-78) U/L Procalcitonin 0.52 ng/mL TSH (0.32-4.0) mIU/mL Free T4 (0.71-1.85) ng/dL Free Cortisol Urine Color Urine Appearance Urine pH (5.0-8.0) Ur Specific [place] (1.005-1.025) Urine Protein (NEG-TRACE) MG/DL Urine Glucose (UA) (NEG) MG/DL Urine Ketones (NEG) MG/DL Urine Blood (NEG) Urine Nitrite (NEG) Ur Leukocyte Esterase (NEG) Urine RBC (0) /HPF Urine WBC (0-4) /HPF Ur Squamous Epith Cells /LPF Amorphous Sediment /LPF Urine Bacteria /LPF Hyaline Casts /LPF Digoxin (0.8-2.0) ng/mL Ethyl Alcohol mg/dL Coronavirus (PCR) (Negative) COVID-19 ([facility]) (Negative) COVID-19 Clin Com Influenza Type A (PCR) (Negative) Influenza Type B (PCR) (Negative) RSV RNA Qual (PCR) (Negative) 11/19/20 11/19/20 11/19/20 Range/Units 10:58 10:58 10:59 WBC 4.6 L (4.8-10.8) X10*3/uL RBC 4.26 L (4.60-5.80) X10*6/uL Hgb 8.6 L (14.0-18.0) g/dl Hct 25.9 L (42-52) % MCV 60.8 L (80-98) fL MCH 20.2 L (27.0-33.0) pg MCHC 33.2 (31.0-36.0) g/dl RDW 22.4 H (11.0-16.0) % Plt Count 59 L D (160-400) X10*3/uL MPV Not Reportable Immature Gran % (Auto) 0.2 (0.0-0.4) % Neut % (Auto) 70.8 (45-73) % Lymph % (Auto) 8.7 L (20-40) % [place] % (Auto) 10.6 (2-11) % Eos % (Auto) 9.3 H (0-4) % Baso % (Auto) 0.4 (0-2) % Lymph # (Auto) 0.4 L (1.2-4.9) X10*3/uL [place] # (Auto) 0.5 (0.1-1.2) X10*3/uL Eos # (Auto) 0.4 (0.0-0.4) X10*3/uL Baso # (Auto) 0.0 (0.0-0.2) X10*3/uL Abs Immat Gran (auto) 0.01 (0.00-0.03) X10*3/uL Absolute Neuts (auto) 3.3 (2.0-8.3) X10*3/uL Absolute Nucleated RBC 0.160 H (0.0-0.012) X10*3/uL Nucleated RBC % (auto) 3.5 H (0.0-0.2) /100WBC Smear Tech's Comments VERIFIED PT (10.8-13.0) SEC INR (0.9-1.1) APTT (24.1-38.0) SEC VBG pH (7.32-7.43) VBG pCO2 mmhg VBG pO2 mmhg VBG HCO3 mmol/L VBG O2 Saturation % VBG Base Excess mmol/L Sodium Potassium Chloride Carbon Dioxide Anion Gap BUN Creatinine Estim Creat Clear Calc Estimated GFR Random Glucose Lactic Acid (0.5-2.0) mmol/L Lactic Acid Fup @ 2Hr (0.5-2.0) mmol/L Calcium Magnesium (1.6-2.6) mg/dL Total Bilirubin (0.0-1.0) mg/dL Direct Bilirubin (0.0-0.5) mg/dL AST (5-37) U/L ALT (0-40) U/L Alkaline Phosphatase (39-117) U/L Ammonia (13-55) umol/L Lactate Dehydrogenase Cancelled Troponin I High Sens (<3.5-35.0) ng/L B-Natriuretic Peptide (<100) pg/mL Total Protein (6.5-8.0) g/dL Albumin (3.5-5.0) g/dL Lipase (8-78) U/L Procalcitonin ng/mL TSH (0.32-4.0) mIU/mL Free T4 (0.71-1.85) ng/dL Free Cortisol Urine Color Urine Appearance Urine pH (5.0-8.0) Ur Specific [place] (1.005-1.025) Urine Protein (NEG-TRACE) MG/DL Urine Glucose (UA) (NEG) MG/DL Urine Ketones (NEG) MG/DL Urine Blood (NEG) Urine Nitrite (NEG) Ur Leukocyte Esterase (NEG) Urine RBC (0) /HPF Urine WBC (0-4) /HPF Ur Squamous Epith Cells /LPF Amorphous Sediment /LPF Urine Bacteria /LPF Hyaline Casts /LPF Digoxin (0.8-2.0) ng/mL Ethyl Alcohol < 10 mg/dL Coronavirus (PCR) (Negative) COVID-19 ([facility]) (Negative) COVID-19 Clin Com Influenza Type A (PCR) (Negative) Influenza Type B (PCR) (Negative) RSV RNA Qual (PCR) (Negative) 11/19/20 11/19/20 11/19/20 Range/Units 10:59 10:59 10:59 WBC (4.8-10.8) X10*3/uL RBC (4.60-5.80) X10*6/uL Hgb (14.0-18.0) g/dl Hct (42-52) % MCV (80-98) fL MCH (27.0-33.0) pg MCHC (31.0-36.0) g/dl RDW (11.0-16.0) % Plt Count (160-400) X10*3/uL MPV Immature Gran % (Auto) (0.0-0.4) % Neut % (Auto) (45-73) % Lymph % (Auto) (20-40) % [place] % (Auto) (2-11) % Eos % (Auto) (0-4) % Baso % (Auto) (0-2) % Lymph # (Auto) (1.2-4.9) X10*3/uL [place] # (Auto) (0.1-1.2) X10*3/uL Eos # (Auto) (0.0-0.4) X10*3/uL Baso # (Auto) (0.0-0.2) X10*3/uL Abs Immat Gran (auto) (0.00-0.03) X10*3/uL Absolute Neuts (auto) (2.0-8.3) X10*3/uL Absolute Nucleated RBC (0.0-0.012) X10*3/uL Nucleated RBC % (auto) (0.0-0.2) /100WBC Smear Tech's Comments PT (10.8-13.0) SEC INR (0.9-1.1) APTT (24.1-38.0) SEC VBG pH (7.32-7.43) VBG pCO2 mmhg VBG pO2 mmhg VBG HCO3 mmol/L VBG O2 Saturation % VBG Base Excess mmol/L Sodium Cancelled Potassium Cancelled Chloride Cancelled Carbon Dioxide Cancelled Anion Gap Cancelled BUN Cancelled Creatinine Cancelled Estim Creat Clear Calc Cancelled Estimated GFR Cancelled Random Glucose Cancelled Lactic Acid (0.5-2.0) mmol/L Lactic Acid Fup @ 2Hr (0.5-2.0) mmol/L Calcium Cancelled Magnesium (1.6-2.6) mg/dL Total Bilirubin (0.0-1.0) mg/dL Direct Bilirubin (0.0-0.5) mg/dL AST (5-37) U/L ALT (0-40) U/L Alkaline Phosphatase (39-117) U/L Ammonia 32 (13-55) umol/L Lactate Dehydrogenase Troponin I High Sens (<3.5-35.0) ng/L B-Natriuretic Peptide (<100) pg/mL Total Protein (6.5-8.0) g/dL Albumin (3.5-5.0) g/dL Lipase (8-78) U/L Procalcitonin ng/mL TSH (0.32-4.0) mIU/mL Free T4 (0.71-1.85) ng/dL Free Cortisol Urine Color Urine Appearance Urine pH (5.0-8.0) Ur Specific [place] (1.005-1.025) Urine Protein (NEG-TRACE) MG/DL Urine Glucose (UA) (NEG) MG/DL Urine Ketones (NEG) MG/DL Urine Blood (NEG) Urine Nitrite (NEG) Ur Leukocyte Esterase (NEG) Urine RBC (0) /HPF Urine WBC (0-4) /HPF Ur Squamous Epith Cells /LPF Amorphous Sediment /LPF Urine Bacteria /LPF Hyaline Casts /LPF Digoxin < 0.3 L (0.8-2.0) ng/mL Ethyl Alcohol mg/dL Coronavirus (PCR) (Negative) COVID-19 ([facility]) (Negative) COVID-19 Clin Com Influenza Type A (PCR) (Negative) Influenza Type B (PCR) (Negative) RSV RNA Qual (PCR) (Negative) 11/19/20 11/19/20 11/19/20 Range/Units 10:59 10:59 10:59 WBC (4.8-10.8) X10*3/uL RBC (4.60-5.80) X10*6/uL Hgb (14.0-18.0) g/dl Hct (42-52) % MCV (80-98) fL MCH (27.0-33.0) pg MCHC (31.0-36.0) g/dl RDW (11.0-16.0) % Plt Count (160-400) X10*3/uL MPV Immature Gran % (Auto) (0.0-0.4) % Neut % (Auto) (45-73) % Lymph % (Auto) (20-40) % [place] % (Auto) (2-11) % Eos % (Auto) (0-4) % Baso % (Auto) (0-2) % Lymph # (Auto) (1.2-4.9) X10*3/uL [place] # (Auto) (0.1-1.2) X10*3/uL Eos # (Auto) (0.0-0.4) X10*3/uL Baso # (Auto) (0.0-0.2) X10*3/uL Abs Immat Gran (auto) (0.00-0.03) X10*3/uL Absolute Neuts (auto) (2.0-8.3) X10*3/uL Absolute Nucleated RBC (0.0-0.012) X10*3/uL Nucleated RBC % (auto) (0.0-0.2) /100WBC Smear Tech's Comments PT 44.0 H D (10.8-13.0) SEC INR 3.7 H (0.9-1.1) APTT 49.0 H D (24.1-38.0) SEC VBG pH (7.32-7.43) VBG pCO2 mmhg VBG pO2 mmhg VBG HCO3 mmol/L VBG O2 Saturation % VBG Base Excess mmol/L Sodium 126 L Potassium 5.3 H D Chloride 93 L Carbon Dioxide 21 L Anion Gap 17 BUN 59 H D Creatinine 2.22 H Estim Creat Clear Calc 34.5 Estimated GFR 31 Random Glucose 102 Lactic Acid (0.5-2.0) mmol/L Lactic Acid Fup @ 2Hr (0.5-2.0) mmol/L Calcium 8.2 L D Magnesium 2.3 (1.6-2.6) mg/dL Total Bilirubin 5.6 H (0.0-1.0) mg/dL Direct Bilirubin 4.1 H (0.0-0.5) mg/dL AST 118 H (5-37) U/L ALT 67 H (0-40) U/L Alkaline Phosphatase 130 H (39-117) U/L Ammonia (13-55) umol/L Lactate Dehydrogenase 524 H Troponin I High Sens (<3.5-35.0) ng/L B-Natriuretic Peptide (<100) pg/mL Total Protein 6.4 L (6.5-8.0) g/dL Albumin 2.7 L (3.5-5.0) g/dL Lipase 66 (8-78) U/L Procalcitonin ng/mL TSH 22.39 H (0.32-4.0) mIU/mL Free T4 0.95 (0.71-1.85) ng/dL Free Cortisol Cancelled Urine Color Urine Appearance Urine pH (5.0-8.0) Ur Specific [place] (1.005-1.025) Urine Protein (NEG-TRACE) MG/DL Urine Glucose (UA) (NEG) MG/DL Urine Ketones (NEG) MG/DL Urine Blood (NEG) Urine Nitrite (NEG) Ur Leukocyte Esterase (NEG) Urine RBC (0) /HPF Urine WBC (0-4) /HPF Ur Squamous Epith Cells /LPF Amorphous Sediment /LPF Urine Bacteria /LPF Hyaline Casts /LPF Digoxin (0.8-2.0) ng/mL Ethyl Alcohol mg/dL Coronavirus (PCR) (Negative) COVID-19 ([facility]) (Negative) COVID-19 Clin Com Influenza Type A (PCR) (Negative) Influenza Type B (PCR) (Negative) RSV RNA Qual (PCR) (Negative) 11/19/20 11/19/20 11/19/20 Range/Units 11:05 11:42 11:43 WBC (4.8-10.8) X10*3/uL RBC (4.60-5.80) X10*6/uL Hgb (14.0-18.0) g/dl Hct (42-52) % MCV (80-98) fL MCH (27.0-33.0) pg MCHC (31.0-36.0) g/dl RDW (11.0-16.0) % Plt Count (160-400) X10*3/uL MPV Immature Gran % (Auto) (0.0-0.4) % Neut % (Auto) (45-73) % Lymph % (Auto) (20-40) % [place] % (Auto) (2-11) % Eos % (Auto) (0-4) % Baso % (Auto) (0-2) % Lymph # (Auto) (1.2-4.9) X10*3/uL [place] # (Auto) (0.1-1.2) X10*3/uL Eos # (Auto) (0.0-0.4) X10*3/uL Baso # (Auto) (0.0-0.2) X10*3/uL Abs Immat Gran (auto) (0.00-0.03) X10*3/uL Absolute Neuts (auto) (2.0-8.3) X10*3/uL Absolute Nucleated RBC (0.0-0.012) X10*3/uL Nucleated RBC % (auto) (0.0-0.2) /100WBC Smear Tech's Comments PT (10.8-13.0) SEC INR (0.9-1.1) APTT (24.1-38.0) SEC VBG pH (7.32-7.43) VBG pCO2 mmhg VBG pO2 mmhg VBG HCO3 mmol/L VBG O2 Saturation % VBG Base Excess mmol/L Sodium Potassium Chloride Carbon Dioxide Anion Gap BUN Creatinine Estim Creat Clear Calc Estimated GFR Random Glucose Lactic Acid (0.5-2.0) mmol/L Lactic Acid Fup @ 2Hr (0.5-2.0) mmol/L Calcium Magnesium (1.6-2.6) mg/dL Total Bilirubin (0.0-1.0) mg/dL Direct Bilirubin (0.0-0.5) mg/dL AST (5-37) U/L ALT (0-40) U/L Alkaline Phosphatase (39-117) U/L Ammonia (13-55) umol/L Lactate Dehydrogenase Troponin I High Sens (<3.5-35.0) ng/L B-Natriuretic Peptide (<100) pg/mL Total Protein (6.5-8.0) g/dL Albumin (3.5-5.0) g/dL Lipase (8-78) U/L Procalcitonin ng/mL TSH (0.32-4.0) mIU/mL Free T4 (0.71-1.85) ng/dL Free Cortisol Urine Color YELLOW Urine Appearance HAZY Urine pH 5.5 (5.0-8.0) Ur Specific [place] 1.015 (1.005-1.025) Urine Protein NEG (NEG-TRACE) MG/DL Urine Glucose (UA) NEG (NEG) MG/DL Urine Ketones NEG (NEG) MG/DL Urine Blood 3+ H (NEG) Urine Nitrite NEG (NEG) Ur Leukocyte Esterase NEG (NEG) Urine RBC 15-29 H (0) /HPF Urine WBC 0-2 (0-4) /HPF Ur Squamous Epith Cells NONE /LPF Amorphous Sediment 1+ /LPF Urine Bacteria TRACE /LPF Hyaline Casts 0-2 /LPF Digoxin (0.8-2.0) ng/mL Ethyl Alcohol mg/dL Coronavirus (PCR) NEGATIVE (Negative) COVID-19 ([facility]) Negative (Negative) COVID-19 Clin Com See Note Influenza Type A (PCR) NEGATIVE (Negative) Influenza Type B (PCR) NEGATIVE (Negative) RSV RNA Qual (PCR) NEGATIVE (Negative) 11/19/20 11/19/20 Range/Units 12:00 15:03 WBC (4.8-10.8) X10*3/uL RBC (4.60-5.80) X10*6/uL Hgb (14.0-18.0) g/dl Hct (42-52) % MCV (80-98) fL MCH (27.0-33.0) pg MCHC (31.0-36.0) g/dl RDW (11.0-16.0) % Plt Count (160-400) X10*3/uL MPV Immature Gran % (Auto) (0.0-0.4) % Neut % (Auto) (45-73) % Lymph % (Auto) (20-40) % [place] % (Auto) (2-11) % Eos % (Auto) (0-4) % Baso % (Auto) (0-2) % Lymph # (Auto) (1.2-4.9) X10*3/uL [place] # (Auto) (0.1-1.2) X10*3/uL Eos # (Auto) (0.0-0.4) X10*3/uL Baso # (Auto) (0.0-0.2) X10*3/uL Abs Immat Gran (auto) (0.00-0.03) X10*3/uL Absolute Neuts (auto) (2.0-8.3) X10*3/uL Absolute Nucleated RBC (0.0-0.012) X10*3/uL Nucleated RBC % (auto) (0.0-0.2) /100WBC Smear Tech's Comments PT (10.8-13.0) SEC INR (0.9-1.1) APTT (24.1-38.0) SEC VBG pH 7.36 (7.32-7.43) VBG pCO2 39 mmhg VBG pO2 107 mmhg VBG HCO3 21 mmol/L VBG O2 Saturation 97.4 % VBG Base Excess -3.7 mmol/L Sodium Potassium Chloride Carbon Dioxide Anion Gap BUN Creatinine Estim Creat Clear Calc Estimated GFR Random Glucose Lactic Acid (0.5-2.0) mmol/L Lactic Acid Fup @ 2Hr 1.8 (0.5-2.0) mmol/L Calcium Magnesium (1.6-2.6) mg/dL Total Bilirubin (0.0-1.0) mg/dL Direct Bilirubin (0.0-0.5) mg/dL AST (5-37) U/L ALT (0-40) U/L Alkaline Phosphatase (39-117) U/L Ammonia (13-55) umol/L Lactate Dehydrogenase Troponin I High Sens (<3.5-35.0) ng/L B-Natriuretic Peptide (<100) pg/mL Total Protein (6.5-8.0) g/dL Albumin (3.5-5.0) g/dL Lipase (8-78) U/L Procalcitonin ng/mL TSH (0.32-4.0) mIU/mL Free T4 (0.71-1.85) ng/dL Free Cortisol Urine Color Urine Appearance Urine pH (5.0-8.0) Ur Specific [place] (1.005-1.025) Urine Protein (NEG-TRACE) MG/DL Urine Glucose (UA) (NEG) MG/DL Urine Ketones (NEG) MG/DL Urine Blood (NEG) Urine Nitrite (NEG) Ur Leukocyte Esterase (NEG) Urine RBC (0) /HPF Urine WBC (0-4) /HPF Ur Squamous Epith Cells /LPF Amorphous Sediment /LPF Urine Bacteria /LPF Hyaline Casts /LPF Digoxin (0.8-2.0) ng/mL Ethyl Alcohol mg/dL Coronavirus (PCR) (Negative) COVID-19 ([facility]) (Negative) COVID-19 Clin Com Influenza Type A (PCR) (Negative) Influenza Type B (PCR) (Negative) RSV RNA Qual (PCR) (Negative) ECG Data Attestation: I personally reviewed and interpreted this ECG as follows: Interpretation: atrial fibrillation, HR 71, right axis deviation, low voltage QRS, prolonged QTc 512ms Critical Care Time Critical Care Time Critical Care Time: Yes Total Critical Care Time: 65 Attestation: I attest to bedside care of this critically ill patient - frequent reassessments and hemodynamic monitoring as well as severe hypothermia. Patient is at risk of life-threatening illness and . Discharge Plan Discharge Clinical Impression: Anasarca, RUDY (acute kidney injury), Acute on chronic right-sided congestive heart failure, Acute pericardial effusion, Pleural effusion, Medical non-compliance Hypothermia Qualifiers: Encounter type: initial encounter Qualified Code(s): T68.XXXA - Hypothermia, initial encounter Patient Disposition: Admitted As Inpatient
[2020-11-19 11:15] LABS: INTERNATIONAL NORM RATIO 3.7 (0.9-1.1)
[2020-11-19 11:17] LABS: Basophils Percent Auto 0.4 % (0-2); Eosinophils Absolute Auto 0.4 X10*3/uL (0.0-0.4); Eosinophils Percent Auto 9.3 % (0-4); Hematocrit 25.9 % (42-52); Hemoglobin 8.6 g/dl (14.0-18.0); Imm Gran Abs Auto 0.01 X10*3/uL (0.00-0.03); Imm Gran Pct Auto 0.2 % (0.0-0.4); Lymphocytes Absolute Auto 0.4 X10*3/uL (1.2-4.9); Lymphocytes Percent Auto 8.7 % (20-40); MANUAL DIFF FLAG SCAN; Mean Corpuscular HGB Conc 33.2 g/dl (31.0-36.0); Mean Corpuscular Hemoglobin 20.2 pg (27.0-33.0); Monocytes Absolute Auto 0.5 X10*3/uL (0.1-1.2); Monocytes Percent Auto 10.6 % (2-11); Neutrophils Absolute Auto 3.3 X10*3/uL (2.0-8.3); Neutrophils Percent Auto 70.8 % (45-73); Red Blood Count 4.26 X10*6/uL (4.60-5.80); Red Cell Distribution Width 22.4 % (11.0-16.0); SCAN SMEAR FLAG 1; White Blood Count 4.6 X10*3/uL (4.8-10.8)
[2020-11-19 11:19] LABS: Mean Corpuscular Volume 60.8 fL (80-98); NRBC Pct Auto 3.5 /100WBC (0.0-0.2); Platelet Count 59 X10*3/uL (160-400)
[2020-11-19 11:31] LABS: Ammonia 32 umol/L (13-55)
[2020-11-19] MEDS: Albumin Human 25 % 50 ML 100 ML IV (11:33)
[2020-11-19] MEDS: cefTRIAXone sodium 1 GM in 0.9 % Sodium Chloride 50 ML IV (11:33)
[2020-11-19] MEDS: Bumetanide 1 MG/4 ML VIAL 2 MG IVPUSH (11:34)
[2020-11-19 11:43] LABS: Ethanol < 10 mg/dL
[2020-11-19 11:44] LABS: B Type Natriuretic Peptide 1951 pg/mL (<100); Troponin-I High Sensitivity 20.7 ng/L (<3.5-35.0)
[2020-11-19 11:51] LABS: Glucose Urine UA NEG (NEG); Leukocyte Esterase Urine NEG (NEG); Nitrite Urine NEG (NEG); PH 5.5 (5.0-8.0); Specific Gravity - Urine 1.015 (1.005-1.025); Urine Blood 3+ (NEG); Urine Ketones NEG (NEG); Urine Protein NEG (NEG-TRACE)
[2020-11-19 11:52] LABS: Appearance Urine HAZY; Color Urine YELLOW
[2020-11-19 11:52] LABS: Alanine Aminotransferase 67 U/L (0-40); Albumin Level 2.7 g/dL (3.5-5.0); Alkaline Phosphatase 130 U/L (39-117); Anion Gap 17 (12-20); Aspartate Amino Transferase 118 U/L (5-37); Bilirubin Direct 4.1 mg/dL (0.0-0.5); Bilirubin Total 5.6 mg/dL (0.0-1.0); Blood Urea Nitrogen 59 mg/dL (9-16); Calcium 8.2 mg/dL (8.4-10.2); Carbon Dioxide 21 mmol/L (22-29); Chloride 93 mmol/L (96-108); Creatinine Clr Calc Pharmacy 34.5; Estimated Glomerular Filt Rate 31; Glucose Random 102 mg/dL (60-115); Lactate Dehydrogenase 524 U/L (118-273); Lipase 66 U/L (8-78); Magnesium 2.3 mg/dL (1.6-2.6); Potassium 5.3 mmol/l (3.3-5.1); SLIDE REVIEW VERIFIED; Sodium 126 mmol/L (135-145); Total Protein 6.4 g/dL (6.5-8.0)
[2020-11-19 11:54] LABS: Lactic Acid 2.1 mmol/L (0.5-2.0)
[2020-11-19 11:55] LABS: Influenza A PCR NEGATIVE (Negative); Influenza B PCR NEGATIVE (Negative); Resp Syncy Virus RNA Qual PCR NEGATIVE (Negative); SARS COV2 PCR INHOUSE NEGATIVE (Negative)
[2020-11-19 11:56] LABS: Digoxin < 0.3 ng/mL (0.8-2.0)
[2020-11-19 12:02] LABS: Procalcitonin 0.52 ng/mL
[2020-11-19 12:03] LABS: TSH reflex Free T4 22.39 mIU/mL (0.32-4.0)
[2020-11-19 12:07] LABS: WBC Urine 0-2 /HPF (0-4)
[2020-11-19 12:08] LABS: Amorphous Sediment Urine 1+ /LPF; Bacteria Urine TRACE /LPF; Hyaline Casts Urine 0-2 /LPF
[2020-11-19 12:09] LABS: COVID-19 Test Negative (Negative); IDNOW Serial# 9DD0AD1C
[2020-11-19 12:11] LABS: PCO2 VBG 39 mmhg; PO2 VBG 107 mmhg; pH VBG 7.36 (7.32-7.43)
[2020-11-19 12:12] LABS: Base Excess VBG -3.7 mmol/L; HCO3 VBG 21 mmol/L; Oxygen Saturation VBG 97.4 %
--- NOTE | 2020-11-19 12:15 | PC.NURSE ---
Pt presents to the ED with c/o generalized swelling. He is alert, but vague with his complaint and history, lung sounds are diminished in the bases, he is speaking in brief statements at times garbled. He has generalized 2-3+ pitting edema throughout. Pt is hypothermic on arrival. ROSINA Tello in to asses pt, and provided orders. IV lines established, blood work, urine, and covid tests all obtained and sent, temperature monitoring wiley catheter inserted, and bear hugger applied for re-heating. TM.
[2020-11-19] MEDS: Albumin Human 25 % 100 ML IV ×2 (12:20→13:21)
[2020-11-19 12:37] LABS: Free T4 (Free Thyroxine) 0.95 ng/dL (0.71-1.85)
--- NOTE | 2020-11-19 12:51 | P.EN_ITS ---
Event Note Date of Service: 11/19/20 Event Note: I was asked to look at Mr. Ferris in the ED who presents with wors ening right heart and renal failure, hypothermia and hypothyroidism. The patient is a 60 yo male with long h/o right heart failure (altho the last echo in his chart is from 2008). Was admitted to the hospital last on November 03 for acute on chronic right heart failure and acute kidney injury. H&P from that admission reports that: ?This is a 60-year-old male with past medical history of CHF with preserved ejection fraction, AFib on warfarin, severe mitral stenosis, schizophrenia, history of TBI, history of congestive hepatic disease who presents to the hospital with complaints of lower extremity edema up to the scrotum. Patient reports that this started about a week ago, he is not cooperative although alert and oriented x3. He is also complaining of diffuse abdominal pain and distension.? Labs at that admission notable for PT of 37/3.1, sodium of 125, BUN/creat of 40/1.70 (baseline is around 0.98), bilirubin of 8.7, BNP of 2580. CT abdomen notable for moderate volume ascites, anasarca, small right pleural effusion, cardiomegaly, partially visualized pericardial effusion. His medical records also indicate that he was past cardioverted twice in September. History of alcohol abuse in the past but not currently. The patient was seen by Dr. Johnson who wrote that ?Agree with Bumex drip as he is currently on. Continue beta-blockers and digoxin for rate control. Con tinue anticoagulation. Guarded prognosis. Consider palliative care. He is not a candidate for any cardiac interventions due to mental health issues.? The patient presented to the ER today with abdominal pain. He reported that his abdomen has been getting bigger and more painful lately. He denied N/V/D, fever chills, chest pain. In the ED, his temperature was 90.1 degrees. Heart rate was 73 in atrial fibrillation, blood pressure was 96/67, respiratory rate was low, and sat was 100% on room air. He was in no distress. His abdomen was distended and tense he had pitting edema and anasarca. Labs in the ED notable for white count of 4.6 (usually runs 5-6), hemoglobin of 8.6 (usually runs about 8.6-9.4), [place] [address] (usually runs low). INR 3.7 (usually about 3). Sodium 126 (usually low), potassium 5.3, BUN and creatinine 59/2.2 (last 20/0.8), glucose 102, lactic acid 2.1, total bili 5.6 (has been as high as 8.7), AST and ALT 118/67, ammonia 32, albumin 2.7, TSH 22.3 (no prior number), free T4 0.95. Dig level is below the limits of detection. COVID-19 PCR is negative. IMPRESSION: 1. Acute on chronic right heart failure. 2. Undoubtedly has cardiorenal syndrome. 3. Clinically hypothyroid. Recommend starting Bumex drip and reevaluation by cardiology. Suggest echo if he hasn?t had one. Renal may be helpful if doesn?t respond to Bumex drip. Suggest slow and steady treatment. No aggressive/urgent moves called for. His renal indices will improve with diuresis. Also rec treatment with IV thyroid replacement (in addition to surface warming). The patient may safely be admitted to IM after he warms up to 95-96?. Please call if I may be of further assistance. Time (including extended chart rev and mult d/w ED staff): 45 min ([id number]).
[2020-11-19 13:04] LABS: Reflex Lactate? Lactic Acid Added
[2020-11-19] MEDS: Levothyroxine Sodium 100 MCG VIAL 37.5 MCG IVPUSH (13:28)
[2020-11-19] MEDS: Bumetanide 25 MG in Container,Empty 0 ML 4 MG IVCONT (13:58)
[2020-11-19 15:34] LABS: ~Lactic Acid-LAB USE ONLY 1.8 mmol/L (0.5-2.0)
[2020-11-19] MEDS: Chlorothiazide Sodium 500 MG VIAL IVPUSH (16:58)
[2020-11-19 17:11] LABS: Anion Gap 19 (12-20); Blood Urea Nitrogen 60 mg/dL (9-16); Calcium 8.6 mg/dL (8.4-10.2); Carbon Dioxide 20 mmol/L (22-29); Chloride 94 mmol/L (96-108); Creatinine Clr Calc Pharmacy 33.8; Estimated Glomerular Filt Rate 30; Glucose Random 67 mg/dL (60-115); Potassium 5.3 mmol/l (3.3-5.1); Sodium 128 mmol/L (135-145)
--- NOTE | 2020-11-19 17:32 | PM.EVENT ---
Event Note Date of Service: 11/19/20 Event Note: Patient seen and examined independently and was present during person portion of E/M service. Agree with midlevel's history, physical, assessment, and plan. 60M presented with anasarca found to have RUDY with anuria acute on chronic right sided chf and severe mitral stenosis complciated by cardiorenal rudy with anuria despite diuretics continue bumex drip renal and cardio eval discussed with guardian brother, he is aware of grave prognosis, wishes to proceed with current management. full code.
--- NOTE | 2020-11-19 18:11 | PM.IMHP ---
History of Present Illness Date of Service: 11/19/20 Chief Complaint: anasarca 60M significant past medical history of right-sided congestive heart failure with congestive hepatopathy, due to severe mitral stenosis, questionable compliance at home. Multiple admissions for fluid overload requiring Bumex drip. Patient now presenting with worsening anasarca and now inability to urinate. Patient denies any shortness of breath. Reports worsening weakness. Denies chest pain. Denies fevers, chills. In ED patient received IV Bumex and continous drip with less than 100 cc of urine output with indwelling Alegre catheter. Was also noted to be hypothyroid with hypothermia and TSH of 22. Review of Systems Review of Systems: Constitutional: Denies fever, denies Chills Eyes: denies blurry vision ENT: denies sore throat CVS: denies chest pain Respiratory: Denies dyspnea GI: abdominal pain : anuria MSK: denies neck pain Skin: denies rash Neuro: weakness Psych: denies suicidal ideation Endocrine: denies heat/cold intoleratnce Hematologic: denies easy bleeding Allergy: denies hives PMFSH Medical History Acute on chronic right heart failure Afib CHF (congestive heart failure) Hepatic encephalopathy Persistent atrial fibrillation Pulmonary hypertension Quit consuming alcohol in remote past Rheumatic mitral stenosis Schizophrenia Severe mitral valve stenosis Traumatic brain injury Family History Father No problems noted. Mother HTN (hypertension) Social History Household Members: Family Housing: House Alcohol intake: unknown Smoking Status: Current every day smoker Smoked in Last 30 Days: Yes Use of substances other than those prescribed or required for medical reasons: Unknown Advance Directives: No Advance Directives Information Provided: Yes service: No Current occupational status: unemployed Meds Allergies Allergy/AdvReac Type Severity Reaction Status Date / Time Fish Containing Products Allergy Unknown UNKNOWN Verified 09/12/20 07:09 PEPPERS, JALAPENO Allergy Unknown UNKNOWN Uncoded 09/12/20 07:09 Home Medications Medication Instructions Recorded Confirmed Type digoxin [Digitek] 125 mcg PO DAILY 09/12/20 11/04/20 History omeprazole 40 mg PO DAILY 09/12/20 11/04/20 History risperidone 2 mg PO BID 09/12/20 11/04/20 History warfarin 7.5 mg PO DAILY 09/12/20 11/05/20 History clotrimazole 1 appl TOPICAL BID 11/04/20 11/04/20 History Physical Exam Vital Signs and Narrative: Vital Signs: Last Vital Signs Temp 95.0 F L 11/19/20 15:25 Pulse 83 11/19/20 16:53 Resp 12 11/19/20 16:53 BP 108/59 L 11/19/20 16:53 Pulse Ox 100 11/19/20 16:53 Body Mass Index 22.6 General: ill appearing, anasarca HEENT: atraumatic Neck: normal to visual inspection CVS: S1, S2, RRR, murmur Resp: dminished Chest: non tender GI: soft, non tender, : no CVA tenderness Skin: no rashes Extremities: no calf tenderness Neuro: grossly intact Psych: cooperative, Results Labs CBC and Chem 7: 11/19/20 10:59 11/19/20 16:39 Labs: Laboratory Results - last 24 hr 11/19/20 11/19/20 11/19/20 10:56 10:56 10:57 MCV MCH MCHC RDW Plt Count MPV Immature Gran % (Auto) Neut % (Auto) Lymph % (Auto) [place] % (Auto) Eos % (Auto) Baso % (Auto) Lymph # (Auto) [place] # (Auto) Eos # (Auto) Baso # (Auto) Abs Immat Gran (auto) Absolute Neuts (auto) Absolute Nucleated RBC Nucleated RBC % (auto) Smear Tech's Comments PT INR APTT VBG pH VBG pCO2 VBG pO2 VBG HCO3 VBG O2 Saturation VBG Base Excess Anion Gap Estim Creat Clear Calc Estimated GFR Random Glucose Lactic Acid 2.1 H* Lactic Acid Fup @ 2Hr Calcium Magnesium Total Bilirubin Direct Bilirubin AST ALT Alkaline Phosphatase Ammonia Lactate Dehydrogenase Troponin I High Sens 20.7 B-Natriuretic Peptide 1951 H Total Protein Albumin Lipase Procalcitonin 0.52 TSH Free T4 Free Cortisol Urine Color Urine Appearance Urine pH Ur Specific [place] Urine Protein Urine Glucose (UA) Urine Ketones Urine Blood Urine Nitrite Ur Leukocyte Esterase Urine RBC Urine WBC Ur Squamous Epith Cells Amorphous Sediment Urine Bacteria Hyaline Casts Digoxin Ethyl Alcohol Coronavirus (PCR) COVID-19 ([facility]) COVID-19 Clin Com Influenza Type A (PCR) Influenza Type B (PCR) RSV RNA Qual (PCR) 11/19/20 11/19/20 11/19/20 10:58 10:58 10:59 MCV 60.8 L MCH 20.2 L MCHC 33.2 RDW 22.4 H Plt Count 59 L D MPV Not Reportable Immature Gran % (Auto) 0.2 Neut % (Auto) 70.8 Lymph % (Auto) 8.7 L [place] % (Auto) 10.6 Eos % (Auto) 9.3 H Baso % (Auto) 0.4 Lymph # (Auto) 0.4 L [place] # (Auto) 0.5 Eos # (Auto) 0.4 Baso # (Auto) 0.0 Abs Immat Gran (auto) 0.01 Absolute Neuts (auto) 3.3 Absolute Nucleated RBC 0.160 H Nucleated RBC % (auto) 3.5 H Smear Tech's Comments VERIFIED PT INR APTT VBG pH VBG pCO2 VBG pO2 VBG HCO3 VBG O2 Saturation VBG Base Excess Anion Gap Estim Creat Clear Calc Estimated GFR Random Glucose Lactic Acid Lactic Acid Fup @ 2Hr Calcium Magnesium Total Bilirubin Direct Bilirubin AST ALT Alkaline Phosphatase Ammonia Lactate Dehydrogenase Cancelled Troponin I High Sens B-Natriuretic Peptide Total Protein Albumin Lipase Procalcitonin TSH Free T4 Free Cortisol Urine Color Urine Appearance Urine pH Ur Specific [place] Urine Protein Urine Glucose (UA) Urine Ketones Urine Blood Urine Nitrite Ur Leukocyte Esterase Urine RBC Urine WBC Ur Squamous Epith Cells Amorphous Sediment Urine Bacteria Hyaline Casts Digoxin Ethyl Alcohol < 10 Coronavirus (PCR) COVID-19 ([facility]) COVID-19 Clin Com Influenza Type A (PCR) Influenza Type B (PCR) RSV RNA Qual (PCR) 11/19/20 11/19/20 11/19/20 10:59 10:59 10:59 MCV MCH MCHC RDW Plt Count MPV Immature Gran % (Auto) Neut % (Auto) Lymph % (Auto) [place] % (Auto) Eos % (Auto) Baso % (Auto) Lymph # (Auto) [place] # (Auto) Eos # (Auto) Baso # (Auto) Abs Immat Gran (auto) Absolute Neuts (auto) Absolute Nucleated RBC Nucleated RBC % (auto) Smear Tech's Comments PT INR APTT VBG pH VBG pCO2 VBG pO2 VBG HCO3 VBG O2 Saturation VBG Base Excess Anion Gap Cancelled Estim Creat Clear Calc Cancelled Estimated GFR Cancelled Random Glucose Cancelled Lactic Acid Lactic Acid Fup @ 2Hr Calcium Cancelled Magnesium Total Bilirubin Direct Bilirubin AST ALT Alkaline Phosphatase Ammonia 32 Lactate Dehydrogenase Troponin I High Sens B-Natriuretic Peptide Total Protein Albumin Lipase Procalcitonin TSH Free T4 Free Cortisol Urine Color Urine Appearance Urine pH Ur Specific [place] Urine Protein Urine Glucose (UA) Urine Ketones Urine Blood Urine Nitrite Ur Leukocyte Esterase Urine RBC Urine WBC Ur Squamous Epith Cells Amorphous Sediment Urine Bacteria Hyaline Casts Digoxin < 0.3 L Ethyl Alcohol Coronavirus (PCR) COVID-19 ([facility]) COVID-19 Clin Com Influenza Type A (PCR) Influenza Type B (PCR) RSV RNA Qual (PCR) 11/19/20 11/19/20 11/19/20 10:59 10:59 10:59 MCV MCH MCHC RDW Plt Count MPV Immature Gran % (Auto) Neut % (Auto) Lymph % (Auto) [place] % (Auto) Eos % (Auto) Baso % (Auto) Lymph # (Auto) [place] # (Auto) Eos # (Auto) Baso # (Auto) Abs Immat Gran (auto) Absolute Neuts (auto) Absolute Nucleated RBC Nucleated RBC % (auto) Smear Tech's Comments PT 44.0 H D INR 3.7 H APTT 49.0 H D VBG pH VBG pCO2 VBG pO2 VBG HCO3 VBG O2 Saturation VBG Base Excess Anion Gap 17 Estim Creat Clear Calc 34.5 Estimated GFR 31 Random Glucose 102 Lactic Acid Lactic Acid Fup @ 2Hr Calcium 8.2 L D Magnesium 2.3 Total Bilirubin 5.6 H Direct Bilirubin 4.1 H AST 118 H ALT 67 H Alkaline Phosphatase 130 H Ammonia Lactate Dehydrogenase 524 H Troponin I High Sens B-Natriuretic Peptide Total Protein 6.4 L Albumin 2.7 L Lipase 66 Procalcitonin TSH 22.39 H Free T4 0.95 Free Cortisol Cancelled Urine Color Urine Appearance Urine pH Ur Specific [place] Urine Protein Urine Glucose (UA) Urine Ketones Urine Blood Urine Nitrite Ur Leukocyte Esterase Urine RBC Urine WBC Ur Squamous Epith Cells Amorphous Sediment Urine Bacteria Hyaline Casts Digoxin Ethyl Alcohol Coronavirus (PCR) COVID-19 ([facility]) COVID-19 Clin Com Influenza Type A (PCR) Influenza Type B (PCR) RSV RNA Qual (PCR) 11/19/20 11/19/20 11/19/20 11:05 11:42 11:43 MCV MCH MCHC RDW Plt Count MPV Immature Gran % (Auto) Neut % (Auto) Lymph % (Auto) [place] % (Auto) Eos % (Auto) Baso % (Auto) Lymph # (Auto) [place] # (Auto) Eos # (Auto) Baso # (Auto) Abs Immat Gran (auto) Absolute Neuts (auto) Absolute Nucleated RBC Nucleated RBC % (auto) Smear Tech's Comments PT INR APTT VBG pH VBG pCO2 VBG pO2 VBG HCO3 VBG O2 Saturation VBG Base Excess Anion Gap Estim Creat Clear Calc Estimated GFR Random Glucose Lactic Acid Lactic Acid Fup @ 2Hr Calcium Magnesium Total Bilirubin Direct Bilirubin AST ALT Alkaline Phosphatase Ammonia Lactate Dehydrogenase Troponin I High Sens B-Natriuretic Peptide Total Protein Albumin Lipase Procalcitonin TSH Free T4 Free Cortisol Urine Color YELLOW Urine Appearance HAZY Urine pH 5.5 Ur Specific [place] 1.015 Urine Protein NEG Urine Glucose (UA) NEG Urine Ketones NEG Urine Blood 3+ H Urine Nitrite NEG Ur Leukocyte Esterase NEG Urine RBC 15-29 H Urine WBC 0-2 Ur Squamous Epith Cells NONE Amorphous Sediment 1+ Urine Bacteria TRACE Hyaline Casts 0-2 Digoxin Ethyl Alcohol Coronavirus (PCR) NEGATIVE COVID-19 ([facility]) Negative COVID-19 Clin Com See Note Influenza Type A (PCR) NEGATIVE Influenza Type B (PCR) NEGATIVE RSV RNA Qual (PCR) NEGATIVE 11/19/20 11/19/20 11/19/20 12:00 15:03 16:39 MCV MCH MCHC RDW Plt Count MPV Immature Gran % (Auto) Neut % (Auto) Lymph % (Auto) [place] % (Auto) Eos % (Auto) Baso % (Auto) Lymph # (Auto) [place] # (Auto) Eos # (Auto) Baso # (Auto) Abs Immat Gran (auto) Absolute Neuts (auto) Absolute Nucleated RBC Nucleated RBC % (auto) Smear Tech's Comments PT INR APTT VBG pH 7.36 VBG pCO2 39 VBG pO2 107 VBG HCO3 21 VBG O2 Saturation 97.4 VBG Base Excess -3.7 Anion Gap 19 Estim Creat Clear Calc 33.8 Estimated GFR 30 Random Glucose 67 Lactic Acid Lactic Acid Fup @ 2Hr 1.8 Calcium 8.6 Magnesium Total Bilirubin Direct Bilirubin AST ALT Alkaline Phosphatase Ammonia Lactate Dehydrogenase Troponin I High Sens B-Natriuretic Peptide Total Protein Albumin Lipase Procalcitonin TSH Free T4 Free Cortisol Urine Color Urine Appearance Urine pH Ur Specific [place] Urine Protein Urine Glucose (UA) Urine Ketones Urine Blood Urine Nitrite Ur Leukocyte Esterase Urine RBC Urine WBC Ur Squamous Epith Cells Amorphous Sediment Urine Bacteria Hyaline Casts Digoxin Ethyl Alcohol Coronavirus (PCR) COVID-19 ([facility]) COVID-19 Clin Com Influenza Type A (PCR) Influenza Type B (PCR) RSV RNA Qual (PCR) Imaging Radiologist's Impressions: Impressions Abdomen/Pelvis CT 11/19/20 10:24 IMPRESSION: Chest: Enlarged heart and small to moderate pericardial effusion. Large right pleural effusion. Tiny left pleural effusion. Abdomen and pelvis: Large amount of ascites. Findings diffuse soft tissue edema or anasarca. Chest CT 11/19/20 10:24 IMPRESSION: Chest: Enlarged heart and small to moderate pericardial effusion. Large right pleural effusion. Tiny left pleural effusion. Abdomen and pelvis: Large amount of ascites. Findings diffuse soft tissue edema or anasarca. Head CT 11/19/20 10:24 IMPRESSION: No acute intracranial pathology. Assessment and Plan (1) RUDY (acute kidney injury): Status: Acute (2) Acute on chronic right-sided congestive heart failure: Status: Acute (3) Hypothermia: Qualifiers: Encounter type: initial encounter Qualified Code(s): T68.XXXA - Hypothermia, initial encounter Status: Acute (4) Acute pericardial effusion: Status: Acute (5) Pleural effusion: Status: Acute (6) Medical non-compliance: Status: Acute (7) Persistent atrial fibrillation: Status: Acute (8) Rheumatic mitral stenosis: Status: Acute (9) Pulmonary hypertension: Status: Acute (10) Anasarca: Status: Acute 60M presented with anasarca Acute on chronic right-sided congestive heart failure due to severe mitral stenosis complicated by acute kidney injury and anuria Continue Bumex drip, Alegre catheter, cardio and nephrology evaluation Hypothermia warmer hypothyroid Synthroid, warmer afib with mitral stenosis coumadin, inr 2-3 grave prognosis - discussed with guardian, brother, continue full code, medical management
--- NOTE | 2020-11-19 18:37 | W.MHC.ACPN ---
Advanced Care Planning Note Advanced Care Planning Note Discussed with: family member(s) Time spent (in minutes): 18 Narrative: Discussed with patient's guardian who is was brother over the phone due to distance and COVID. We discussed patient's diagnosis of anasarca due to severe mitral stenosis and right-sided heart failure with pulmonary hypertension. Discussed progressive nature of patient's disease and that he is currently presenting worsen his presented before and is in grave situation. Goals of care were discussed as was option of palliative care. brother reiterated that he would like to continue with medical management and would pursue resuscitation and intubation if required. Problems Discussed (1) RUDY (acute kidney injury): (2) Acute on chronic right-sided congestive heart failure: (3) Hypothermia: (4) Acute pericardial effusion: (5) Pleural effusion: (6) Medical non-compliance: (7) Persistent atrial fibrillation: (8) Rheumatic mitral stenosis: (9) Pulmonary hypertension: (10) Anasarca:
[2020-11-19 21:15] LABS: Glucose, Whole Blood 50 mg/dL (60-115)
[2020-11-19 21:40] LABS: Glucose, Whole Blood 89 mg/dL (60-115)
[2020-11-19 23:55] LABS: Glucose, Whole Blood 111 mg/dL (60-115)
[2020-11-20 04:00] VITALS: BP 109/59; PULSE 70; RESP 20; TEMP 35.9; O2SAT 100
[2020-11-20] MEDS: Levothyroxine Sodium 50 MCG TABLET PO (05:07)
[2020-11-20 05:55] VITALS: BMI 23.6
[2020-11-20 06:49] LABS: Prothrombin Time 36.1 SEC (10.8-13.0)
[2020-11-20 06:50] LABS: Basophils Percent Auto 0.4 % (0-2); MANUAL DIFF FLAG SCAN; SCAN SMEAR FLAG 1
[2020-11-20 06:52] LABS: Eosinophils Absolute Auto 0.6 X10*3/uL (0.0-0.4); Eosinophils Percent Auto 11.2 % (0-4); Hematocrit 23.8 % (42-52); Hemoglobin 7.9 g/dl (14.0-18.0); Imm Gran Abs Auto 0.02 X10*3/uL (0.00-0.03); Imm Gran Pct Auto 0.4 % (0.0-0.4); Lymphocytes Absolute Auto 0.5 X10*3/uL (1.2-4.9); Mean Corpuscular HGB Conc 33.2 g/dl (31.0-36.0); Mean Corpuscular Hemoglobin 19.9 pg (27.0-33.0); Monocytes Absolute Auto 0.7 X10*3/uL (0.1-1.2); Monocytes Percent Auto 13.6 % (2-11); Neutrophils Absolute Auto 3.5 X10*3/uL (2.0-8.3); Neutrophils Percent Auto 65.4 % (45-73); Red Blood Count 3.96 X10*6/uL (4.60-5.80); Red Cell Distribution Width 21.8 % (11.0-16.0); White Blood Count 5.4 X10*3/uL (4.8-10.8)
[2020-11-20 07:04] LABS: Mean Corpuscular Volume 60.1 fL (80-98); NRBC Pct Auto 2.8 /100WBC (0.0-0.2); Platelet Count 57 X10*3/uL (160-400)
[2020-11-20 07:05] LABS: PLT ABN DIST 1
[2020-11-20 07:12] LABS: Anion Gap 18 (12-20); Blood Urea Nitrogen 61 mg/dL (9-16); Calcium 8.3 mg/dL (8.4-10.2); Carbon Dioxide 20 mmol/L (22-29); Chloride 94 mmol/L (96-108); Estimated Glomerular Filt Rate 28; Glucose Random 88 mg/dL (60-115); Potassium 4.7 mmol/l (3.3-5.1); Sodium 127 mmol/L (135-145)
[2020-11-20 07:48] VITALS: BP 95/56; PULSE 87; RESP 18; TEMP 36.6; O2SAT 96
[2020-11-20 07:55] LABS: SLIDE REVIEW VERIFIED
[2020-11-20] MEDS: 0.9 % Sodium Chloride Flush 3 ML SYRINGE IVFLUSH ×3 (08:54→23:59)
--- NOTE | 2020-11-20 09:49 | HO.PM.IMPN ---
Subjective Subjective Date of Service: 11/20/20 Interval History: a bit better today Cardiovascular Cardiovascular: Reports no additional cardiovascular complaints Gastrointestinal Gastrointestinal: Reports no additional gastrointestinal complaints Physical Exam Vital Signs: Vital Signs: Last Vital Signs Temp 97.8 F 11/20/20 07:48 Pulse 87 11/20/20 07:48 Resp 18 11/20/20 07:48 BP 95/56 L 11/20/20 07:48 Pulse Ox 96 11/20/20 07:48 Body Mass Index 23.6 General: Alert, anasarca, no acute distress, but weak appearing Resp: diminished CVS: S1,S2,RRR, murmur GI: soft, non tender, non distended Neuro: motor grossly intact Psych: appropriate affect Objective Data Current Medications Generic Name Dose Route Start Last Admin Trade Name Freq PRN Reason Stop Dose Admin Bumetanide 25 mg/ IV 100 mls @ 4 mls/hr 11/19/20 13:00 11/19/20 13:58 Miscellaneous Supplies IVCONT 1 mg/hr .Q24H EUSEBIO 4 mls/hr Administration 1 MG/HR Levothyroxine Sodium 50 mcg 11/20/20 06:00 11/20/20 05:07 Levothyroxine Sodium 50 Mcg Tablet PO 50 mcg DAILY@0600 EUSEBIO Administration Sodium Chloride 3 ml 11/20/20 00:00 11/20/20 08:54 0.9 % Sodium Chloride Flush 3 Ml Syringe IVFLUSH 3 ml QSHIFT EUSEBIO Administration Warfarin Sodium 5 mg 11/21/20 18:00 Warfarin Sodium 5 Mg Tablet PO DAILY MRX1 [facility] Labs CBC & Chem 7: 11/20/20 05:38 11/20/20 05:38 Assessment and Plan (1) RUDY (acute kidney injury): Status: Acute (2) Acute on chronic right-sided congestive heart failure: Status: Acute (3) Hypothermia: Status: Acute (4) Acute pericardial effusion: Status: Acute (5) Pleural effusion: Status: Acute (6) Medical non-compliance: Status: Acute (7) Persistent atrial fibrillation: Status: Acute (8) Rheumatic mitral stenosis: Status: Acute (9) Pulmonary hypertension: Status: Acute (10) Anasarca: Status: Acute Assessment and Plan: 60M presented with anasarca Acute on chronic right-sided congestive heart failure due to severe mitral stenosis complicated by acute kidney injury and oliguria has made about 500cc on 1mg/hr Bumex drip and diuril, cardio and nephrology evaluation Hypothermia improved hypothyroid Synthroid, afib with mitral stenosis coumadin, inr 2-3
[2020-11-20] MEDS: Bumetanide 25 MG in Container,Empty 0 ML 4 MG IVCONT (10:04)
--- NOTE | 2020-11-20 11:29 | P.PNNP_ITS ---
Subjective Subjective Date of Service: 11/20/20 Interval history: Patient seen and examined consult dictated Physical Exam Vital Signs: Vital Signs: Last Vital Signs Temp 97.8 F 11/20/20 07:48 Pulse 87 11/20/20 07:48 Resp 18 11/20/20 07:48 BP 95/56 L 11/20/20 07:48 Pulse Ox 96 11/20/20 07:48 Body Mass Index 23.6 Objective Data Labs CBC & Chem 7: 11/20/20 05:38 11/20/20 05:38 Labs: Laboratory Results - last 24 hr 11/19/20 11/19/20 11/19/20 10:56 10:56 10:57 WBC RBC Hgb Hct MCV MCH MCHC RDW Plt Count MPV Immature Gran % (Auto) Neut % (Auto) Lymph % (Auto) [place] % (Auto) Eos % (Auto) Baso % (Auto) Lymph # (Auto) [place] # (Auto) Eos # (Auto) Baso # (Auto) Abs Immat Gran (auto) Absolute Neuts (auto) Absolute Nucleated RBC Nucleated RBC % (auto) Smear Tech's Comments PT INR VBG pH VBG pCO2 VBG pO2 VBG HCO3 VBG O2 Saturation VBG Base Excess Sodium Potassium Chloride Carbon Dioxide Anion Gap BUN Creatinine Estim Creat Clear Calc Estimated GFR POC Glucose Random Glucose Lactic Acid 2.1 H* Lactic Acid Fup @ 2Hr Calcium Magnesium Total Bilirubin Direct Bilirubin AST ALT Alkaline Phosphatase Ammonia Lactate Dehydrogenase Troponin I High Sens 20.7 B-Natriuretic Peptide 1951 H Total Protein Albumin Lipase Procalcitonin 0.52 TSH Free T4 Free Cortisol Urine Color Urine Appearance Urine pH Ur Specific [place] Urine Protein Urine Glucose (UA) Urine Ketones Urine Blood Urine Nitrite Ur Leukocyte Esterase Urine RBC Urine WBC Ur Squamous Epith Cells Amorphous Sediment Urine Bacteria Hyaline Casts Digoxin Ethyl Alcohol Coronavirus (PCR) COVID-19 ([facility]) COVID-19 Clin Com Influenza Type A (PCR) Influenza Type B (PCR) RSV RNA Qual (PCR) 11/19/20 11/19/20 11/19/20 10:58 10:58 10:59 WBC RBC Hgb Hct MCV MCH MCHC RDW Plt Count MPV Immature Gran % (Auto) Neut % (Auto) Lymph % (Auto) [place] % (Auto) Eos % (Auto) Baso % (Auto) Lymph # (Auto) [place] # (Auto) Eos # (Auto) Baso # (Auto) Abs Immat Gran (auto) Absolute Neuts (auto) Absolute Nucleated RBC Nucleated RBC % (auto) Smear Tech's Comments VERIFIED PT INR VBG pH VBG pCO2 VBG pO2 VBG HCO3 VBG O2 Saturation VBG Base Excess Sodium Potassium Chloride Carbon Dioxide Anion Gap BUN Creatinine Estim Creat Clear Calc Estimated GFR POC Glucose Random Glucose Lactic Acid Lactic Acid Fup @ 2Hr Calcium Magnesium Total Bilirubin Direct Bilirubin AST ALT Alkaline Phosphatase Ammonia Lactate Dehydrogenase Cancelled Troponin I High Sens B-Natriuretic Peptide Total Protein Albumin Lipase Procalcitonin TSH Free T4 Free Cortisol Urine Color Urine Appearance Urine pH Ur Specific [place] Urine Protein Urine Glucose (UA) Urine Ketones Urine Blood Urine Nitrite Ur Leukocyte Esterase Urine RBC Urine WBC Ur Squamous Epith Cells Amorphous Sediment Urine Bacteria Hyaline Casts Digoxin Ethyl Alcohol < 10 Coronavirus (PCR) COVID-19 ([facility]) COVID-19 Clin Com Influenza Type A (PCR) Influenza Type B (PCR) RSV RNA Qual (PCR) 11/19/20 11/19/20 11/19/20 10:59 10:59 10:59 WBC RBC Hgb Hct MCV MCH MCHC RDW Plt Count MPV Immature Gran % (Auto) Neut % (Auto) Lymph % (Auto) [place] % (Auto) Eos % (Auto) Baso % (Auto) Lymph # (Auto) [place] # (Auto) Eos # (Auto) Baso # (Auto) Abs Immat Gran (auto) Absolute Neuts (auto) Absolute Nucleated RBC Nucleated RBC % (auto) Smear Tech's Comments PT INR VBG pH VBG pCO2 VBG pO2 VBG HCO3 VBG O2 Saturation VBG Base Excess Sodium Cancelled Potassium Cancelled Chloride Cancelled Carbon Dioxide Cancelled Anion Gap Cancelled BUN Cancelled Creatinine Cancelled Estim Creat Clear Calc Cancelled Estimated GFR Cancelled POC Glucose Random Glucose Cancelled Lactic Acid Lactic Acid Fup @ 2Hr Calcium Cancelled Magnesium Total Bilirubin Direct Bilirubin AST ALT Alkaline Phosphatase Ammonia 32 Lactate Dehydrogenase Troponin I High Sens B-Natriuretic Peptide Total Protein Albumin Lipase Procalcitonin TSH Free T4 Free Cortisol Urine Color Urine Appearance Urine pH Ur Specific [place] Urine Protein Urine Glucose (UA) Urine Ketones Urine Blood Urine Nitrite Ur Leukocyte Esterase Urine RBC Urine WBC Ur Squamous Epith Cells Amorphous Sediment Urine Bacteria Hyaline Casts Digoxin < 0.3 L Ethyl Alcohol Coronavirus (PCR) COVID-19 ([facility]) COVID-19 Clin Com Influenza Type A (PCR) Influenza Type B (PCR) RSV RNA Qual (PCR) 11/19/20 11/19/20 11/19/20 10:59 10:59 11:05 WBC RBC Hgb Hct MCV MCH MCHC RDW Plt Count MPV Immature Gran % (Auto) Neut % (Auto) Lymph % (Auto) [place] % (Auto) Eos % (Auto) Baso % (Auto) Lymph # (Auto) [place] # (Auto) Eos # (Auto) Baso # (Auto) Abs Immat Gran (auto) Absolute Neuts (auto) Absolute Nucleated RBC Nucleated RBC % (auto) Smear Tech's Comments PT INR VBG pH VBG pCO2 VBG pO2 VBG HCO3 VBG O2 Saturation VBG Base Excess Sodium 126 L Potassium 5.3 H D Chloride 93 L Carbon Dioxide 21 L Anion Gap 17 BUN 59 H D Creatinine 2.22 H Estim Creat Clear Calc 34.5 Estimated GFR 31 POC Glucose Random Glucose 102 Lactic Acid Lactic Acid Fup @ 2Hr Calcium 8.2 L D Magnesium 2.3 Total Bilirubin 5.6 H Direct Bilirubin 4.1 H AST 118 H ALT 67 H Alkaline Phosphatase 130 H Ammonia Lactate Dehydrogenase 524 H Troponin I High Sens B-Natriuretic Peptide Total Protein 6.4 L Albumin 2.7 L Lipase 66 Procalcitonin TSH 22.39 H Free T4 0.95 Free Cortisol Cancelled Urine Color Urine Appearance Urine pH Ur Specific [place] Urine Protein Urine Glucose (UA) Urine Ketones Urine Blood Urine Nitrite Ur Leukocyte Esterase Urine RBC Urine WBC Ur Squamous Epith Cells Amorphous Sediment Urine Bacteria Hyaline Casts Digoxin Ethyl Alcohol Coronavirus (PCR) NEGATIVE COVID-19 ([facility]) COVID-19 Clin Com Influenza Type A (PCR) NEGATIVE Influenza Type B (PCR) NEGATIVE RSV RNA Qual (PCR) NEGATIVE 11/19/20 11/19/20 11/19/20 11:42 11:43 12:00 WBC RBC Hgb Hct MCV MCH MCHC RDW Plt Count MPV Immature Gran % (Auto) Neut % (Auto) Lymph % (Auto) [place] % (Auto) Eos % (Auto) Baso % (Auto) Lymph # (Auto) [place] # (Auto) Eos # (Auto) Baso # (Auto) Abs Immat Gran (auto) Absolute Neuts (auto) Absolute Nucleated RBC Nucleated RBC % (auto) Smear Tech's Comments PT INR VBG pH 7.36 VBG pCO2 39 VBG pO2 107 VBG HCO3 21 VBG O2 Saturation 97.4 VBG Base Excess -3.7 Sodium Potassium Chloride Carbon Dioxide Anion Gap BUN Creatinine Estim Creat Clear Calc Estimated GFR POC Glucose Random Glucose Lactic Acid Lactic Acid Fup @ 2Hr Calcium Magnesium Total Bilirubin Direct Bilirubin AST ALT Alkaline Phosphatase Ammonia Lactate Dehydrogenase Troponin I High Sens B-Natriuretic Peptide Total Protein Albumin Lipase Procalcitonin TSH Free T4 Free Cortisol Urine Color YELLOW Urine Appearance HAZY Urine pH 5.5 Ur Specific [place] 1.015 Urine Protein NEG Urine Glucose (UA) NEG Urine Ketones NEG Urine Blood 3+ H Urine Nitrite NEG Ur Leukocyte Esterase NEG Urine RBC 15-29 H Urine WBC 0-2 Ur Squamous Epith Cells NONE Amorphous Sediment 1+ Urine Bacteria TRACE Hyaline Casts 0-2 Digoxin Ethyl Alcohol Coronavirus (PCR) COVID-19 ([facility]) Negative COVID-19 Clin Com See Note Influenza Type A (PCR) Influenza Type B (PCR) RSV RNA Qual (PCR) 11/19/20 11/19/20 11/19/20 15:03 16:39 21:09 WBC RBC Hgb Hct MCV MCH MCHC RDW Plt Count MPV Immature Gran % (Auto) Neut % (Auto) Lymph % (Auto) [place] % (Auto) Eos % (Auto) Baso % (Auto) Lymph # (Auto) [place] # (Auto) Eos # (Auto) Baso # (Auto) Abs Immat Gran (auto) Absolute Neuts (auto) Absolute Nucleated RBC Nucleated RBC % (auto) Smear Tech's Comments PT INR VBG pH VBG pCO2 VBG pO2 VBG HCO3 VBG O2 Saturation VBG Base Excess Sodium 128 L Potassium 5.3 H Chloride 94 L Carbon Dioxide 20 L Anion Gap 19 BUN 60 H Creatinine 2.27 H Estim Creat Clear Calc 33.8 Estimated GFR 30 POC Glucose 50 L* Random Glucose 67 Lactic Acid Lactic Acid Fup @ 2Hr 1.8 Calcium 8.6 Magnesium Total Bilirubin Direct Bilirubin AST ALT Alkaline Phosphatase Ammonia Lactate Dehydrogenase Troponin I High Sens B-Natriuretic Peptide Total Protein Albumin Lipase Procalcitonin TSH Free T4 Free Cortisol Urine Color Urine Appearance Urine pH Ur Specific [place] Urine Protein Urine Glucose (UA) Urine Ketones Urine Blood Urine Nitrite Ur Leukocyte Esterase Urine RBC Urine WBC Ur Squamous Epith Cells Amorphous Sediment Urine Bacteria Hyaline Casts Digoxin Ethyl Alcohol Coronavirus (PCR) COVID-19 ([facility]) COVID-19 Clin Com Influenza Type A (PCR) Influenza Type B (PCR) RSV RNA Qual (PCR) 11/19/20 11/19/20 11/20/20 21:36 23:47 05:38 WBC 5.4 RBC 3.96 L Hgb 7.9 L Hct 23.8 L MCV 60.1 L MCH 19.9 L MCHC 33.2 RDW 21.8 H Plt Count 57 L MPV Not Reportable Immature Gran % (Auto) 0.4 Neut % (Auto) 65.4 Lymph % (Auto) 9.0 L [place] % (Auto) 13.6 H Eos % (Auto) 11.2 H Baso % (Auto) 0.4 Lymph # (Auto) 0.5 L [place] # (Auto) 0.7 Eos # (Auto) 0.6 H Baso # (Auto) 0.0 Abs Immat Gran (auto) 0.02 Absolute Neuts (auto) 3.5 Absolute Nucleated RBC 0.150 H Nucleated RBC % (auto) 2.8 H Smear Tech's Comments VERIFIED PT INR VBG pH VBG pCO2 VBG pO2 VBG HCO3 VBG O2 Saturation VBG Base Excess Sodium Potassium Chloride Carbon Dioxide Anion Gap BUN Creatinine Estim Creat Clear Calc Estimated GFR POC Glucose 89 111 Random Glucose Lactic Acid Lactic Acid Fup @ 2Hr Calcium Magnesium Total Bilirubin Direct Bilirubin AST ALT Alkaline Phosphatase Ammonia Lactate Dehydrogenase Troponin I High Sens B-Natriuretic Peptide Total Protein Albumin Lipase Procalcitonin TSH Free T4 Free Cortisol Urine Color Urine Appearance Urine pH Ur Specific [place] Urine Protein Urine Glucose (UA) Urine Ketones Urine Blood Urine Nitrite Ur Leukocyte Esterase Urine RBC Urine WBC Ur Squamous Epith Cells Amorphous Sediment Urine Bacteria Hyaline Casts Digoxin Ethyl Alcohol Coronavirus (PCR) COVID-19 ([facility]) COVID-19 Clin Com Influenza Type A (PCR) Influenza Type B (PCR) RSV RNA Qual (PCR) 11/20/20 11/20/20 05:38 05:38 WBC RBC Hgb Hct MCV MCH MCHC RDW Plt Count MPV Immature Gran % (Auto) Neut % (Auto) Lymph % (Auto) [place] % (Auto) Eos % (Auto) Baso % (Auto) Lymph # (Auto) [place] # (Auto) Eos # (Auto) Baso # (Auto) Abs Immat Gran (auto) Absolute Neuts (auto) Absolute Nucleated RBC Nucleated RBC % (auto) Smear Tech's Comments PT 36.1 H INR 3.0 H VBG pH VBG pCO2 VBG pO2 VBG HCO3 VBG O2 Saturation VBG Base Excess Sodium 127 L Potassium 4.7 Chloride 94 L Carbon Dioxide 20 L Anion Gap 18 BUN 61 H Creatinine 2.36 H Estim Creat Clear Calc 33.0 Estimated GFR 28 POC Glucose Random Glucose 88 Lactic Acid Lactic Acid Fup @ 2Hr Calcium 8.3 L Magnesium Total Bilirubin Direct Bilirubin AST ALT Alkaline Phosphatase Ammonia Lactate Dehydrogenase Troponin I High Sens B-Natriuretic Peptide Total Protein Albumin Lipase Procalcitonin TSH Free T4 Free Cortisol Urine Color Urine Appearance Urine pH Ur Specific [place] Urine Protein Urine Glucose (UA) Urine Ketones Urine Blood Urine Nitrite Ur Leukocyte Esterase Urine RBC Urine WBC Ur Squamous Epith Cells Amorphous Sediment Urine Bacteria Hyaline Casts Digoxin Ethyl Alcohol Coronavirus (PCR) COVID-19 ([facility]) COVID-19 Clin Com Influenza Type A (PCR) Influenza Type B (PCR) RSV RNA Qual (PCR) Assessment & Plan Assessment and plan (1) RUDY (acute kidney injury): Status: Acute (2) Right heart failure (secondary to left heart failure): Status: Acute (3) Pulmonary HTN: Status: Acute (4) Hyponatremia: Status: Acute (5) Anasarca: Status: Acute Assessment and Plan: RUDY in the setting of decompensated right heart failure consistent with type 1 cardiorenal syndrome doubt he willl tolerate dialysis due to tenuous hemodynamics and right heart failure patient with severe mitral stenosis, need to discuss halfway plan with cardiology if any REC titrate bumetanide drip continue chlorothiazide consider changing to furosemide infusion follow kidney function and electrolytes goal of care discussion Thank you Time Spent With Patient Time: Total time spent is greater than 50% in coordination of care (as documented) at patient's floor/unit and/or counseling patient:
[2020-11-20 11:41] LABS: CDIFF Ag Negative (Negative); CDIFF Internal ctrl Dots and bkg OK (V); CDiff Toxin Negative (Negative)
[2020-11-20 12:00] VITALS: BP 96/61; PULSE 75; RESP 18; TEMP 36.6; O2SAT 96
--- NOTE | 2020-11-20 12:01 | P.CONCA_ITS ---
History of Present Illness History of Present Illness Date of Service: 11/20/20 Consult reason: congestive heart failure Chief complaint: chf Narrative: We are asked to see Jose in cardiology consultation today due to progressive generalized anasarca and acute kidney injury. He is not responding well to IV diuretic drip at current time with poor urine output. He lives at home. Not able to provide much history. His speech is incomprehensible. He is complaining of mostly cough right now. He also appears to be short of breath. He was brought to the emergency room, it seems like family called ambulance because of again fluid gain. He has prior history of significant right heart failure and chronic kidney disease related to cardiorenal syndrome. Also has underlying psychiatric issues. Cardiology consult was sought because of his anasarca high and underlying cardiac issues. Review of Systems Review of Systems: Yes Unobtainable due to mental condition and Unobtainable due to mental status PMFSH Past Medical History Medical History Acute on chronic right heart failure Afib CHF (congestive heart failure) Hepatic encephalopathy Persistent atrial fibrillation Pulmonary hypertension Quit consuming alcohol in remote past Rheumatic mitral stenosis Schizophrenia Severe mitral valve stenosis Traumatic brain injury Family History Family History Father No problems noted. Mother HTN (hypertension) Social History Social History Household Members: Family Housing: Apartment Alcohol intake: unknown Smoking Status: Current some day smoker Smoked in Last 30 Days: Yes Use of substances other than those prescribed or required for medical reasons: No Currently Displaying Signs/Symptoms of Drug Intoxication Withdrawal: No Have you been hit, kicked, punched, or otherwise hurt by someone within the past year? If so, by whom?: No Do you feel safe in your current relationship?: No Current Relationship Is there a partner from a previous relationship who is making you feel unsafe now?: No Are you made to feel afraid or neglected: No Advance Directives: No Advance Directives Information Provided: Yes Do you have thoughts of harming others: None Do you have a plan to hurt others: No Plan Recently lost weight without trying: Unsure service: No Current occupational status: unemployed Meds Allergies Allergy/AdvReac Type Severity Reaction Status Date / Time Fish Containing Products Allergy Unknown UNKNOWN Verified 09/12/20 07:09 PEPPERS, JALAPENO Allergy Unknown UNKNOWN Uncoded 09/12/20 07:09 Home Medications Medication Instructions Recorded Confirmed Type digoxin [Digitek] 125 mcg PO DAILY 09/12/20 11/19/20 History omeprazole 40 mg PO DAILY 09/12/20 11/19/20 History risperidone 2 mg PO BID 09/12/20 11/19/20 History clotrimazole 1 appl TOPICAL BID 11/04/20 11/19/20 History warfarin 7.5 mg PO DAILY 11/20/20 11/20/20 History Physical Exam Vital Signs: Vital Signs: Last Vital Signs Temp 97.8 F 11/20/20 07:48 Pulse 87 11/20/20 07:48 Resp 18 11/20/20 07:48 BP 95/56 L 11/20/20 07:48 Pulse Ox 96 11/20/20 07:48 Body Mass Index 23.6 Const: General: alert, awake, acute distress moderate and respiratory and ill appearing Nutritional Appearance: cachectic Limitations: other limitations (Bed-bound) HENMT: Head: Yes normocephalic and Yes atraumatic Eyes: Sclerae: scleral abnormal (Icteric) bilateral Neck: Neck: Yes trachea midline and Yes JVD (Marked jugular venous distention up to the earlobe) Chest: Chest palpation & inspection: normal inspection of the chest Resp: Effort & Inspection: decreased respiratory effort Auscultation: no rhonchi, no wheezes and diminished lung sounds Cardio: Jugular venous distension: JVD Palpation: abnormal PMI displaced PMI Rhythm: abnormal rhythm irregularly irregular Heart sounds: S1 normal heart sound present GI: Inspection: Yes distended Auscultation: normal bowel sounds Skin: General skin exam: no rashes or lesions noted Neuro: General: no focal motor deficits Extrem: General: Yes edema (Generalized anasarca) Results Labs and Meds Result diagrams: 11/20/20 05:38 11/20/20 05:38 Lab results: Laboratory Results - last 24 hr 11/19/20 11/19/20 11/19/20 10:57 10:59 10:59 WBC RBC Hgb Hct MCV MCH MCHC RDW Plt Count MPV Immature Gran % (Auto) Neut % (Auto) Lymph % (Auto) [place] % (Auto) Eos % (Auto) Baso % (Auto) Lymph # (Auto) [place] # (Auto) Eos # (Auto) Baso # (Auto) Abs Immat Gran (auto) Absolute Neuts (auto) Absolute Nucleated RBC Nucleated RBC % (auto) Smear Tech's Comments PT INR VBG pH VBG pCO2 VBG pO2 VBG HCO3 VBG O2 Saturation VBG Base Excess Sodium Potassium Chloride Carbon Dioxide Anion Gap BUN Creatinine Estim Creat Clear Calc Estimated GFR POC Glucose Random Glucose Lactic Acid Fup @ 2Hr Calcium Procalcitonin 0.52 TSH 22.39 H Free T4 0.95 Free Cortisol Cancelled Urine RBC Urine WBC Ur Squamous Epith Cells Amorphous Sediment Urine Bacteria Hyaline Casts C. difficile Toxin A&B C. difficile Antigen C. difficile Interpret COVID-19 ([facility]) COVID-MaxLinear 11/19/20 11/19/20 11/19/20 11:42 11:43 12:00 WBC RBC Hgb Hct MCV MCH MCHC RDW Plt Count MPV Immature Gran % (Auto) Neut % (Auto) Lymph % (Auto) [place] % (Auto) Eos % (Auto) Baso % (Auto) Lymph # (Auto) [place] # (Auto) Eos # (Auto) Baso # (Auto) Abs Immat Gran (auto) Absolute Neuts (auto) Absolute Nucleated RBC Nucleated RBC % (auto) Smear Tech's Comments PT INR VBG pH 7.36 VBG pCO2 39 VBG pO2 107 VBG HCO3 21 VBG O2 Saturation 97.4 VBG Base Excess -3.7 Sodium Potassium Chloride Carbon Dioxide Anion Gap BUN Creatinine Estim Creat Clear Calc Estimated GFR POC Glucose Random Glucose Lactic Acid Fup @ 2Hr Calcium Procalcitonin TSH Free T4 Free Cortisol Urine RBC 15-29 H Urine WBC 0-2 Ur Squamous Epith Cells NONE Amorphous Sediment 1+ Urine Bacteria TRACE Hyaline Casts 0-2 C. difficile Toxin A&B C. difficile Antigen C. difficile Interpret COVID-19 ([facility]) Negative TherabiolIDInductly See Note 11/19/20 11/19/20 11/19/20 15:03 16:39 21:09 WBC RBC Hgb Hct MCV MCH MCHC RDW Plt Count MPV Immature Gran % (Auto) Neut % (Auto) Lymph % (Auto) [place] % (Auto) Eos % (Auto) Baso % (Auto) Lymph # (Auto) [place] # (Auto) Eos # (Auto) Baso # (Auto) Abs Immat Gran (auto) Absolute Neuts (auto) Absolute Nucleated RBC Nucleated RBC % (auto) Smear Tech's Comments PT INR VBG pH VBG pCO2 VBG pO2 VBG HCO3 VBG O2 Saturation VBG Base Excess Sodium 128 L Potassium 5.3 H Chloride 94 L Carbon Dioxide 20 L Anion Gap 19 BUN 60 H Creatinine 2.27 H Estim Creat Clear Calc 33.8 Estimated GFR 30 POC Glucose 50 L* Random Glucose 67 Lactic Acid Fup @ 2Hr 1.8 Calcium 8.6 Procalcitonin TSH Free T4 Free Cortisol Urine RBC Urine WBC Ur Squamous Epith Cells Amorphous Sediment Urine Bacteria Hyaline Casts C. difficile Toxin A&B C. difficile Antigen C. difficile Interpret COVID-19 ([facility]) COVIDInductly 11/19/20 11/19/20 11/20/20 21:36 23:47 05:38 WBC 5.4 RBC 3.96 L Hgb 7.9 L Hct 23.8 L MCV 60.1 L MCH 19.9 L MCHC 33.2 RDW 21.8 H Plt Count 57 L MPV Not Reportable Immature Gran % (Auto) 0.4 Neut % (Auto) 65.4 Lymph % (Auto) 9.0 L [place] % (Auto) 13.6 H Eos % (Auto) 11.2 H Baso % (Auto) 0.4 Lymph # (Auto) 0.5 L [place] # (Auto) 0.7 Eos # (Auto) 0.6 H Baso # (Auto) 0.0 Abs Immat Gran (auto) 0.02 Absolute Neuts (auto) 3.5 Absolute Nucleated RBC 0.150 H Nucleated RBC % (auto) 2.8 H Smear Tech's Comments VERIFIED PT INR VBG pH VBG pCO2 VBG pO2 VBG HCO3 VBG O2 Saturation VBG Base Excess Sodium Potassium Chloride Carbon Dioxide Anion Gap BUN Creatinine Estim Creat Clear Calc Estimated GFR POC Glucose 89 111 Random Glucose Lactic Acid Fup @ 2Hr Calcium Procalcitonin TSH Free T4 Free Cortisol Urine RBC Urine WBC Ur Squamous Epith Cells Amorphous Sediment Urine Bacteria Hyaline Casts C. difficile Toxin A&B C. difficile Antigen C. difficile Interpret COVID-19 ([facility]) COVID-MaxLinear 11/20/20 11/20/20 11/20/20 05:38 05:38 10:40 WBC RBC Hgb Hct MCV MCH MCHC RDW Plt Count MPV Immature Gran % (Auto) Neut % (Auto) Lymph % (Auto) [place] % (Auto) Eos % (Auto) Baso % (Auto) Lymph # (Auto) [place] # (Auto) Eos # (Auto) Baso # (Auto) Abs Immat Gran (auto) Absolute Neuts (auto) Absolute Nucleated RBC Nucleated RBC % (auto) Smear Tech's Comments PT 36.1 H INR 3.0 H VBG pH VBG pCO2 VBG pO2 VBG HCO3 VBG O2 Saturation VBG Base Excess Sodium 127 L Potassium 4.7 Chloride 94 L Carbon Dioxide 20 L Anion Gap 18 BUN 61 H Creatinine 2.36 H Estim Creat Clear Calc 33.0 Estimated GFR 28 POC Glucose Random Glucose 88 Lactic Acid Fup @ 2Hr Calcium 8.3 L Procalcitonin TSH Free T4 Free Cortisol Urine RBC Urine WBC Ur Squamous Epith Cells Amorphous Sediment Urine Bacteria Hyaline Casts C. difficile Toxin A&B Negative C. difficile Antigen Negative C. difficile Interpret SEE NOTE COVID-19 ([facility]) COVID-19 Clin Com Assessment and Plan (1) Right heart failure: Status: Acute Patient presents with recurrent right heart failure with generalized anasarca and significant fluid overload with poor response to diuretic therapy. Patient overall clinical finding also consistent with poor forward stroke volume and perfusion. This is secondary to severe mitral stenosis with atrial fibrillation with secondary severe pulmonary hypertension and RV enlargement and failure. He has developed acute kidney injury related to congestive nephropathy as well as poor forward stroke volume. This carries extremely poor prognosis both short-term and long-term. Currently not responding to IV diuretic therapy. Nephrology is on board. If continues to have poor diuretic response, consider ultrafiltration/hemodialysis. He is a poor candidate for long-term outcome. Consider palliative care. Atrial fibrillation rate adequately controlled. Continue oxygen therapy. Continue supportive care for his cough. Will follow with the patient.
--- NOTE | 2020-11-20 12:20 | CONS_ITS ---
DATE OF SERVICE: 11/20/2020 HISTORY OF PRESENT ILLNESS: This is a 60-year-old patient with history of right-sided congestive heart failure, presented to the hospital with anasarca, and is currently with worsening kidney function and low serum sodium. The patient has had multiple admissions recently with fluid overload, requiring administration of diuretic infusion. The patient denies any shortness of breath, but complains of worsening weakness. There are no report of fever, chills, chest pain, nausea, vomiting, or diarrhea. He was started on bumetanide drip with minimal urine output. PAST MEDICAL HISTORY: Remarkable for history of acute kidney injury, congestive heart failure, atrial fibrillation, hepatic encephalopathy, pulmonary hypertension, schizophrenia, severe mitral stenosis, traumatic brain injury. CURRENT MEDICATIONS: Include Bumex drip, warfarin, albumin, ceftriaxone, levothyroxine, chlorothiazide. ALLERGIES: HE IS NOT ALLERGIC TO MEDICATIONS. SOCIAL HISTORY: He does not smoke. FAMILY HISTORY: Negative for kidney disease. REVIEW OF SYSTEMS: Ten-point systems negative except pertinent in history of present illness. PHYSICAL EXAMINATION: VITAL SIGNS: Blood pressure is 95/56, heart rate 87, respiratory rate 18, temperature 97.8. CONSTITUTIONAL: He looks his stated age. No acute distress. NEUROLOGIC: He is alert, awake. HEAD: Atraumatic, normocephalic. NECK: Supple. LUNGS: Decreased breath sounds. CARDIOVASCULAR: S1, S2. No rub. ABDOMEN: Distended, nontender. EXTREMITIES: With peripheral edema. LABORATORY DATA: Showed sodium 127, potassium 4.7, chloride 94, CO2 of 20, BUN 61, creatinine 2.36. IMPRESSION: 1. Acute kidney injury. 2. Right-sided heart failure. 3. Pulmonary hypertension. 4. Hyponatremia. This is a patient with acute kidney injury in the setting of decompensated right-sided heart failure, who has not responded so far to a bumetanide infusion. I doubt he will be able to tolerate dialysis given his tenuous hemodynamics and his right ventricular failure with underlying severe mitral stenosis. My recommendation would be to titrate his bumetanide drip and continue with chlorothiazide. We could also try furosemide infusion as well. We discussed goals of care as well with family as I do not think he will be a candidate for renal replacement therapy. Thank you for allowing me to participate in the care of this patient. Jeanne Barcenas MD GF/MODL / [id number]
--- NOTE | 2020-11-20 12:53 | CA_ITS ---
Transthoracic Echocardiogram Patient (Last, First, Middle): Jose Ferris, Gender: Male Date of : 1960 Age: 60 Procedure Date: 11/20/2020 Procedure Type: Transthoracic Echocardiogram Location: [facility] [place] Height: 172.72 cm Weight: 70.31 kg BSA: 1.83 m2 Heart Rate: bpm BP: 116 / 56 mmHg Industrial Methods Consultant: Referring MD: Elisha ALMAGUER Dehydrogenation Converter Operator: Kobe Melo MD Symptoms: right sided heart failure, pericardial effusion, hypotension Study Quality: Good ECG Rhythm: Atrial Fibrillation Conclusions: - 1. Severely increased right-sided chamber size with reduced RV systolic function 2. Low normal LV systolic function 3. Severe tricuspid regurgitation due to poor coaptation of tricuspid leaflets 4. Severely elevated right atrial pressures Findings Left Ventricle The left ventricular systolic function is low normal. The visually estimated ejection fraction is between 50-55%. There is a flattened septum in systole and diastole consistent with right ventricular pressure and volume overload. Right Ventricle Severely increased right ventricular cavity size. There is moderate to severely decreased right ventricular systolic function. Atria Severe biatrial enlargement. Mitral Valve The mitral valve appears rheumatic. Tricuspid Valve There is severe tricuspid valve regurgitation. Significantly elevated right atrial pressure. Pericardium/Pleural There is a moderate loculated pericardial effusion overlying the left ventricle. Measurements 2D Linear Measurements IVSd: 0.97 0.6-0.9/0.6-1.0 cm LVIDd: 5.93 3.9-5.3/4.2-5.9 cm LVIDd Index: 3.24 2.4-3.2/2.2-3.1 cm/m2 LVIDs: 4.37 2.0-3.6 cm LVPWd: 0.95 0.7-1.1 cm LV Mass: 285.64 67-162/88-224 g LV Mass Index: 156.09 43-95/49-115 g/m2 2D Systolic Function EF 4C: 53.80 >55% EF 2C: 52.80 >55% EF BiP: 53.70 >55% Tricuspid Valve TR Pk Zaheer: 1.91 TR Pk Grad: 15.00 Updated in Other Vendor System with Status of Final Kobe Melo MD electronically signed on 11/20/2020 2:39:24 PM with status of Final
--- NOTE | 2020-11-20 13:15 | MHC.CM.PN ---
CM met with patient at the bedside who reports he is independent and lives with his sister Michelle and nephew Syed. Patient does have a guardian brother Lisset Alcaraz [phone]. CM spoke with guardian and he is aware of patient's hospitalization. Discussed discharge plan, home no services. Marissa Lynch [phone] will provide transport. Patient has limited insurance r/t not a [place] citizen and does not cover SNF or home care. Patient does go to [facility] for MD, labs and meds. PCP is Dr Lucretia Benites. CM will continue to follow patient for discharge needs.
[2020-11-20] MEDS: guaiFENesin 100 MG/5 ML LIQUID PO (13:46)
[2020-11-20 15:16] VITALS: BP 96/55; PULSE 63; RESP 18; TEMP 36.8; O2SAT 97
[2020-11-20 19:19] VITALS: BP 106/62; PULSE 84; RESP 18; TEMP 36.6; O2SAT 99
[2020-11-20 23:33] VITALS: BP 122/80; PULSE 88; RESP 16; TEMP 36.3; O2SAT 99
[2020-11-21] MEDS: guaiFENesin 100 MG/5 ML LIQUID PO (00:01)
[2020-11-21 03:33] VITALS: BP 125/75; PULSE 83; RESP 18; TEMP 36.3; O2SAT 99
[2020-11-21] MEDS: Levothyroxine Sodium 50 MCG TABLET PO (05:51)
[2020-11-21 06:00] VITALS: BMI 22.4
[2020-11-21 06:24] LABS: Hematocrit 24.4 % (42-52); MANUAL DIFF FLAG SCAN; PLT ABN DIST 1; Red Cell Distribution Width 21.8 % (11.0-16.0); SCAN SMEAR FLAG 1
[2020-11-21 06:26] LABS: Basophils Percent Auto 0.4 % (0-2); Eosinophils Absolute Auto 0.5 X10*3/uL (0.0-0.4); Eosinophils Percent Auto 8.5 % (0-4); Hemoglobin 8.1 g/dl (14.0-18.0); Imm Gran Abs Auto 0.02 X10*3/uL (0.00-0.03); Imm Gran Pct Auto 0.4 % (0.0-0.4); Lymphocytes Absolute Auto 0.4 X10*3/uL (1.2-4.9); Lymphocytes Percent Auto 6.3 % (20-40); Mean Corpuscular HGB Conc 33.2 g/dl (31.0-36.0); Mean Corpuscular Hemoglobin 20.3 pg (27.0-33.0); Mean Corpuscular Volume 61.2 fL (80-98); Monocytes Absolute Auto 0.6 X10*3/uL (0.1-1.2); Monocytes Percent Auto 10.4 % (2-11); NRBC Pct Auto 2.3 /100WBC (0.0-0.2); Neutrophils Absolute Auto 4.2 X10*3/uL (2.0-8.3); Platelet Count 48 X10*3/uL (160-400); Red Blood Count 3.99 X10*6/uL (4.60-5.80); White Blood Count 5.7 X10*3/uL (4.8-10.8)
[2020-11-21 06:27] LABS: INTERNATIONAL NORM RATIO 2.6 (0.9-1.1); Prothrombin Time 31.1 SEC (10.8-13.0)
[2020-11-21 07:07] LABS: SLIDE REVIEW VERIFIED
[2020-11-21 07:11] LABS: Blood Urea Nitrogen 57 mg/dL (9-16); Calcium 8.3 mg/dL (8.4-10.2); Creatinine Clr Calc Pharmacy 35.8; Estimated Glomerular Filt Rate 32; Glucose Fasting 89 mg/dL (60-99)
[2020-11-21 07:30] LABS: Anion Gap 19 (12-20); Carbon Dioxide 20 mmol/L (22-29); Chloride 95 mmol/L (96-108); Potassium 3.5 mmol/l (3.3-5.1); Sodium 130 mmol/L (135-145)
[2020-11-21 07:48] VITALS: BP 110/70; PULSE 80; RESP 18; TEMP 36.7; O2SAT 98
[2020-11-21 08:14] LABS: Glucose, Whole Blood 83 mg/dL (60-115)
[2020-11-21] MEDS: Bumetanide 25 MG in Container,Empty 0 ML 4 MG IVCONT (08:14)
[2020-11-21] MEDS: 0.9 % Sodium Chloride Flush 3 ML SYRINGE IVFLUSH ×3 (08:15→21:25)
--- NOTE | 2020-11-21 10:35 | P.PNIM_ITS ---
Subjective Subjective Date of Service: 11/21/20 Interval History: cough Cardiovascular Cardiovascular: Reports no additional cardiovascular complaints Respiratory Respiratory: Reports no additional respiratory complaints Physical Exam Vital Signs: Vital Signs: Last Vital Signs Temp 98.0 F 11/21/20 07:48 Pulse 80 11/21/20 07:48 Resp 18 11/21/20 07:48 BP 110/70 11/21/20 07:48 Pulse Ox 98 11/21/20 07:48 Body Mass Index 22.4 General: Alert, no acute distress, anasarca Resp: CTA bilateral CVS: S1,S2,RRR GI: soft, non tender, non distended Neuro: motor grossly intact Psych: appropriate affect Objective Data Current Medications Generic Name Dose Route Start Last Admin Trade Name Freq PRN Reason Stop Dose Admin Guaifenesin 5 ml 11/20/20 10:44 11/21/20 00:01 Guaifenesin 100 Mg/5 Ml Liquid PO 5 ml Q6H PRN Administration Cough Bumetanide 25 mg/ IV 100 mls @ 6 mls/hr 11/19/20 13:00 11/21/20 08:14 Miscellaneous Supplies IVCONT 1 mg/hr .[id number] [facility] 4 mls/hr Administration 1.5 MG/HR Levothyroxine Sodium 50 mcg 11/20/20 06:00 11/21/20 05:51 Levothyroxine Sodium 50 Mcg Tablet PO 50 mcg DAILY@0600 [facility] Administration Sodium Chloride 3 ml 11/20/20 00:00 11/21/20 08:15 0.9 % Sodium Chloride Flush 3 Ml Syringe IVFLUSH 3 ml QSHIFT [facility] Administration Warfarin Sodium 5 mg 11/21/20 18:00 Warfarin Sodium 5 Mg Tablet PO DAILY@1800 [facility] Labs CBC & Chem 7: 11/21/20 05:26 11/21/20 05:26 Microbiology Microbiology Results: Microbiology 11/19/20 11:05 Blood - Venous Blood Culture - Preliminary No growth after 24 hours. 11/19/20 10:58 Blood - Venous Blood Culture - Preliminary No growth after 24 hours. Assessment and Plan (1) RUDY (acute kidney injury): Status: Acute (2) Acute on chronic right-sided congestive heart failure: Status: Acute (3) Hypothermia: Status: Acute (4) Acute pericardial effusion: Status: Acute (5) Pleural effusion: Status: Acute (6) Medical non-compliance: Status: Acute (7) Persistent atrial fibrillation: Status: Acute (8) Rheumatic mitral stenosis: Status: Acute (9) Pulmonary hypertension: Status: Acute (10) Anasarca: Status: Acute Assessment and Plan: 60M presented with anasarca Acute on chronic right-sided congestive heart failure due to severe rheumatic mitral stenosis complicated by acute kidney injury and oliguria, pericardial effusion continues to have poor urine output despite 1.5mg/hr bumex cardio and nephrology following grave prognosis Hypothermia improved hypothyroid Synthroid, afib with mitral stenosis coumadin, inr 2-3
--- NOTE | 2020-11-21 11:45 | P.PNCA_ITS ---
Subjective Subjective Date of Service: 11/21/20 Principal diagnosis: Congestive heart failure Interval history: Patient has diuresed somewhat with higher dose of Bumex. Currently he says his cough is better. His breathing is also improved. Creatinine has marginally improved. Echocardiogram shows wide-open TR with severely dysfunctional RV enlarged RV with low normal LV systolic function suggestion of severe mitral stenosis. Review of Systems Review of Systems Yes Unobtainable due to mental condition and Unobtainable due to mental status Physical Exam Vital Signs: Last Vital Signs Temp 98.0 F 11/21/20 07:48 Pulse 80 11/21/20 07:48 Resp 18 11/21/20 07:48 BP 110/70 11/21/20 07:48 Pulse Ox 98 11/21/20 07:48 Body Mass Index 22.4 Const General: acute distress mild and respiratory, ill appearing and lethargic Nutritional Appearance: cachectic Orientation/consciousness: lethargic HENMT Head: Yes normocephalic and Yes atraumatic Neck Neck: Yes trachea midline, Yes supple and Yes JVD Resp Effort & Inspection: decreased respiratory effort Auscultation: no rhonchi, no wheezes and breath sounds absent (At bases) bilateral Cardio Palpation: abnormal PMI displaced PMI Rhythm: abnormal rhythm irregularly irregular Heart sounds: S1 normal heart sound present and S2 normal heart sound present (Loud S2) Extrem General: Yes edema (Persistent significant anasarca) Results Labs and Meds Result diagrams: 11/21/20 05:26 11/21/20 05:26 Lab results: Laboratory Results - last 24 hr 11/19/20 11/20/20 11/21/20 10:58 05:38 05:26 WBC RBC Hgb Hct MCV MCH MCHC RDW Plt Count MPV Immature Gran % (Auto) Neut % (Auto) Lymph % (Auto) [place] % (Auto) Eos % (Auto) Baso % (Auto) Lymph # (Auto) [place] # (Auto) Eos # (Auto) Baso # (Auto) Abs Immat Gran (auto) Absolute Neuts (auto) Absolute Nucleated RBC Nucleated RBC % (auto) Smear Tech's Comments Smear Path Review SEE NOTE PT 31.1 H INR 2.6 H Sodium Potassium Chloride Carbon Dioxide Anion Gap BUN Creatinine Estim Creat Clear Calc Estimated GFR POC Glucose Fasting Glucose Calcium Cortisol 16.9 11/21/20 11/21/2011/21/20 05:26 05:26 07:50 WBC 5.7 RBC 3.99 L Hgb 8.1 L Hct 24.4 L MCV 61.2 L MCH 20.3 L MCHC 33.2 RDW 21.8 H Plt Count 48 L MPV Not Reportable Immature Gran % (Auto) 0.4 Neut % (Auto) 74.0 H Lymph % (Auto) 6.3 L [place] % (Auto) 10.4 Eos % (Auto) 8.5 H Baso % (Auto) 0.4 Lymph # (Auto) 0.4 L [place] # (Auto) 0.6 Eos # (Auto) 0.5 H Baso # (Auto) 0.0 Abs Immat Gran (auto) 0.02 Absolute Neuts (auto) 4.2 Absolute Nucleated RBC 0.130 H Nucleated RBC % (auto) 2.3 H Smear Tech's Comments VERIFIED Smear Path Review PT INR Sodium 130 L Potassium 3.5 D Chloride 95 L Carbon Dioxide 20 L Anion Gap 19 BUN 57 H Creatinine 2.12 H Estim Creat Clear Calc 35.8 Estimated GFR 32 POC Glucose 83 Fasting Glucose 89 D Calcium 8.3 L Cortisol Progress Note: A&P Assessment and plan (1) Right heart failure: Status: Acute Assessment and Plan: Advanced enhance age right heart failure, gradually progressive clinical course with secondary severe RV dysfunction and RV enlargement with wide open tricuspid regurgitation secondary to underlying severe mitral stenosis and chronic atrial fibrillation. Has responded to higher dose of Bumex. Continue such gentle diuresis daily. Continue to monitor BMP and BNP. If he fails to respond to diuretic regimen, should consider ultrafiltration or hemodialysis. His risk of cardiac tamponade is extremely low. His prognosis overall is poor. Discussion for palliative care should be made with healthcare proxy or next of kin. Continue supportive care. Will follow with the patient. Fall Risk Details Current Medications: Current Medications Generic Name Dose Route Start Last Admin Trade Name Freq PRN Reason Stop Dose Admin Guaifenesin 5 ml 11/20/20 10:44 11/21/20 00:01 Guaifenesin 100 Mg/5 Ml Liquid PO 5 ml Q6H PRN Administration Cough Bumetanide 25 mg/ IV 100 mls @ 6 mls/hr 11/19/20 13:00 11/21/20 08:14 Miscellaneous Supplies IVCONT 1 mg/hr .[id number] [facility] 4 mls/hr Administration 1.5 MG/HR Levothyroxine Sodium 50 mcg 11/20/20 06:00 11/21/20 05:51 Levothyroxine Sodium 50 Mcg Tablet PO 50 mcg DAILY@0600 [facility] Administration Sodium Chloride 3 ml 11/20/20 00:00 11/21/20 08:15 0.9 % Sodium Chloride Flush 3 Ml Syringe IVFLUSH 3 ml QSHIFT [facility] Administration Warfarin Sodium 5 mg 11/21/20 18:00 Warfarin Sodium 5 Mg Tablet PO DAILY@1800 [facility] Time Spent With Patient Time: Total time spent is greater than 50% in coordination of care (as documented) at patient's floor/unit and/or counseling patient: Time with patient: 25 - 35 minutes
[2020-11-21 12:00] VITALS: BP 122/61; PULSE 66; RESP 18; TEMP 35.8; O2SAT 95
--- NOTE | 2020-11-21 13:43 | P.PNNP_ITS ---
Subjective Subjective Date of Service: 11/21/20 Principal diagnosis: Congestive heart failure Interval history: seen and examined discussed with medical attending looks comfortable Physical Exam Vital Signs: Vital Signs: Last Vital Signs Temp 96.5 F L 11/21/20 12:00 Pulse 66 11/21/20 12:00 Resp 18 11/21/20 12:00 BP 122/61 11/21/20 12:00 Pulse Ox 95 11/21/20 12:00 Body Mass Index 22.4 Const: General: no acute distress HENMT: Head: Yes normocephalic and Yes atraumatic Neck: Neck: Yes supple Resp: Auscultation: diminished lung sounds Cardio: Heart sounds: S1 normal heart sound present and S2 normal heart sound present GI: Palpation (GI): Soft to palpation and nontender Extrem: General: Yes edema Objective Data Labs CBC & Chem 7: 11/21/20 05:26 11/21/20 05:26 Labs: Laboratory Results - last 24 hr 11/19/20 11/20/20 11/21/20 10:58 05:38 05:26 WBC RBC Hgb Hct MCV MCH MCHC RDW Plt Count MPV Immature Gran % (Auto) Neut % (Auto) Lymph % (Auto) [place] % (Auto) Eos % (Auto) Baso % (Auto) Lymph # (Auto) [place] # (Auto) Eos # (Auto) Baso # (Auto) Abs Immat Gran (auto) Absolute Neuts (auto) Absolute Nucleated RBC Nucleated RBC % (auto) Smear Tech's Comments Smear Path Review SEE NOTE PT 31.1 H INR 2.6 H Sodium Potassium Chloride Carbon Dioxide Anion Gap BUN Creatinine Estim Creat Clear Calc Estimated GFR POC Glucose Fasting Glucose Calcium Cortisol 16.9 11/21/20 11/21/20 11/21/20 05:26 05:26 07:50 WBC 5.7 RBC 3.99 L Hgb 8.1 L Hct 24.4 L MCV 61.2 L MCH 20.3 L MCHC 33.2 RDW 21.8 H Plt Count 48 L MPV Not Reportable Immature Gran % (Auto) 0.4 Neut % (Auto) 74.0 H Lymph % (Auto) 6.3 L [place] % (Auto) 10.4 Eos % (Auto) 8.5 H Baso % (Auto) 0.4 Lymph # (Auto) 0.4 L [place] # (Auto) 0.6 Eos # (Auto) 0.5 H Baso # (Auto) 0.0 Abs Immat Gran (auto) 0.02 Absolute Neuts (auto) 4.2 Absolute Nucleated RBC 0.130 H Nucleated RBC % (auto) 2.3 H Smear Tech's Comments VERIFIED Smear Path Review PT INR Sodium 130 L Potassium 3.5 D Chloride 95 L Carbon Dioxide 20 L Anion Gap 19 BUN 57 H Creatinine 2.12 H Estim Creat Clear Calc 35.8 Estimated GFR 32 POC Glucose 83 Fasting Glucose 89 D Calcium 8.3 L Cortisol Microbiology Microbiology Results: Microbiology 11/19/20 11:05 Blood - Venous Blood Culture - Preliminary No growth after 48 hours. 11/19/20 10:58 Blood - Venous Blood Culture - Preliminary No growth after 48 hours. Assessment & Plan Assessment and plan (1) RUDY (acute kidney injury): Status: Acute (2) Right heart failure (secondary to left heart failure): Status: Acute (3) Pulmonary HTN: Status: Acute (4) Hyponatremia: Status: Acute (5) Anasarca: Status: Acute Assessment and Plan: kidney function better urine output improved on higher bumetanide infusion dose RUDY in the setting of decompensated right heart failure consistent with type 1 cardiorenal syndrome doubt he will tolerate dialysis due to tenuous hemodynamics and right heart failure RV failure usually suggests poor tolerance on dialysis patient with severe mitral stenosis, 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
[2020-11-21 16:00] VITALS: BP 159/80; PULSE 75; RESP 18; TEMP 37.3; O2SAT 98
[2020-11-21] MEDS: Warfarin Sodium 5 MG TABLET PO (18:24)
[2020-11-21 20:00] VITALS: PULSE 80; RESP 20; TEMP 33.8; O2SAT 96
[2020-11-22] VITALS (7 sets, daily range): BP systolic 82–122; BP diastolic 48–93; PULSE 60–102; RESP 16–20; TEMP 33.7–37.2; O2SAT 95–100; BMI 22.1
[2020-11-22] MEDS: Bumetanide 25 MG in Container,Empty 0 ML 4 MG IVCONT (00:38)
--- NOTE | 2020-11-22 01:50 | PC.NURSE ---
0000 P-TEMP 92.9 RECTALLY, UNABLE TO GET BP ON EITHER ARM.BP-118/93 ON RIGHT THIGH. I- NOTIFIED.ORDERED WARMING BLANKET E-WILL CONTINUE TO MONITOR
[2020-11-22] MEDS: Levothyroxine Sodium 50 MCG TABLET PO (05:35)
--- NOTE | 2020-11-22 06:00 | PC.NURSE ---
0400 [facility].
[2020-11-22 06:59] LABS: INTERNATIONAL NORM RATIO 2.4 (0.9-1.1); Prothrombin Time 28.9 SEC (10.8-13.0)
[2020-11-22 07:04] LABS: Basophils Percent Auto 0.2 % (0-2); Eosinophils Absolute Auto 0.4 X10*3/uL (0.0-0.4); Eosinophils Percent Auto 10.3 % (0-4); Hematocrit 23.1 % (42-52); Hemoglobin 7.9 g/dl (14.0-18.0); Imm Gran Abs Auto 0.01 X10*3/uL (0.00-0.03); Imm Gran Pct Auto 0.2 % (0.0-0.4); Lymphocytes Absolute Auto 0.4 X10*3/uL (1.2-4.9); Lymphocytes Percent Auto 9.1 % (20-40); MANUAL DIFF FLAG SCAN; Mean Corpuscular HGB Conc 34.2 g/dl (31.0-36.0); Mean Corpuscular Hemoglobin 20.3 pg (27.0-33.0); Monocytes Absolute Auto 0.6 X10*3/uL (0.1-1.2); Neutrophils Absolute Auto 2.8 X10*3/uL (2.0-8.3); Neutrophils Percent Auto 65.2 % (45-73); Red Blood Count 3.89 X10*6/uL (4.60-5.80); Red Cell Distribution Width 21.9 % (11.0-16.0); SCAN SMEAR FLAG 1; White Blood Count 4.3 X10*3/uL (4.8-10.8)
[2020-11-22 07:07] LABS: Mean Corpuscular Volume 59.4 fL (80-98); Platelet Count 50 X10*3/uL (160-400)
[2020-11-22 07:21] LABS: Blood Urea Nitrogen 51 mg/dL (9-16); Calcium 8.1 mg/dL (8.4-10.2); Creatinine Clr Calc Pharmacy 41.8; Estimated Glomerular Filt Rate 39
[2020-11-22 07:24] LABS: SLIDE REVIEW VERIFIED
[2020-11-22] MEDS: 0.9 % Sodium Chloride Flush 3 ML SYRINGE IVFLUSH ×2 (07:45→15:59)
[2020-11-22 07:47] LABS: Anion Gap 19 (12-20); Carbon Dioxide 22 mmol/L (22-29); Chloride 93 mmol/L (96-108); Glucose Fasting 43 mg/dL (60-99); Potassium 2.8 mmol/l (3.3-5.1); Sodium 131 mmol/L (135-145)
[2020-11-22 07:55] LABS: Glucose, Whole Blood 52 mg/dL (60-115)
[2020-11-22 08:17] LABS: Glucose, Whole Blood 68 mg/dL (60-115)
[2020-11-22] MEDS: Potassium Chloride ER 20 MEQ TAB.ER.PRT 40 MEQ PO (09:15)
--- NOTE | 2020-11-22 09:23 | HO.PM.IMPN ---
Subjective Subjective Date of Service: 11/22/20 Interval History: feeling better, less swelling Cardiovascular Cardiovascular: Reports no additional cardiovascular complaints Gastrointestinal Gastrointestinal: Reports no additional gastrointestinal complaints Physical Exam Vital Signs: Vital Signs: Last Vital Signs Temp 97.6 F 11/22/20 07:55 Pulse 60 11/22/20 07:55 Resp 18 11/22/20 07:55 BP 115/77 11/22/20 07:55 Pulse Ox 95 11/22/20 07:55 Body Mass Index 22.1 General: Alert, edema improving, no acute distress Resp: CTA bilateral CVS: S1,S2,RRR GI: soft, non tender, non distended Neuro: motor grossly intact Psych: appropriate affect Objective Data Current Medications Generic Name Dose Route Start Last Admin Trade Name Freq PRN Reason Stop Dose Admin Guaifenesin 5 ml 11/20/20 10:44 11/21/20 00:01 Guaifenesin 100 Mg/5 Ml Liquid PO 5 ml Q6H PRN Administration Cough Bumetanide 25 mg/ IV 100 mls @ 6 mls/hr 11/19/20 13:00 11/22/20 00:38 Miscellaneous Supplies IVCONT 1 mg/hr .[id number] [facility] 4 mls/hr Administration 1.5 MG/HR Levothyroxine Sodium 50 mcg 11/20/20 06:00 11/22/20 05:35 Levothyroxine Sodium 50 Mcg Tablet PO 50 mcg DAILY@0600 [facility] Administration Sodium Chloride 3 ml 11/20/20 00:00 11/22/20 07:45 0.9 % Sodium Chloride Flush 3 Ml Syringe IVFLUSH 3 ml QSHIFT [facility] Administration Warfarin Sodium 5 mg 11/21/20 18:00 11/21/20 18:24 Warfarin Sodium 5 Mg Tablet PO 5 mg DAILY@1800 [facility] Administration Labs CBC & Chem 7: 11/22/20 05:49 11/22/20 05:49 Microbiology Microbiology Results: Microbiology 11/19/20 11:05 Blood - Venous Blood Culture - Preliminary No growth after 48 hours. 11/19/20 10:58 Blood - Venous Blood Culture - Preliminary No growth after 48 hours. Assessment and Plan (1) RUDY (acute kidney injury): Status: Acute (2) Acute on chronic right-sided congestive heart failure: Status: Acute (3) Hypothermia: Status: Acute (4) Acute pericardial effusion: Status: Acute (5) Pleural effusion: Status: Acute (6) Medical non-compliance: Status: Acute (7) Persistent atrial fibrillation: Status: Acute (8) Rheumatic mitral stenosis: Status: Acute (9) Pulmonary hypertension: Status: Acute (10) Anasarca: Status: Acute Assessment and Plan: 60M presented with anasarca Acute on chronic right-sided congestive heart failure due to severe rheumatic mitral stenosis complicated by acute kidney injury and oliguria, pericardial effusion urine output has picked up some, and edema improving, conitnue 1.5mg/hr bumex cardio and nephrology following grave prognosis Hypothermia had another episode last night, resolved hypothyroid Synthroid, afib with mitral stenosis coumadin, inr 2-3
[2020-11-22 09:30] LABS: Glucose, Whole Blood 109 mg/dL (60-115)
--- NOTE | 2020-11-22 13:08 | PM.PNCARD ---
Subjective Subjective Date of Service: 11/22/20 Principal diagnosis: Congestive heart failure Interval history: Jose was seen at bedside. His heart failure seems to be improving gradually. Diuresing gradually. Currently maintained on IV Bumex drip at high dose. His cough is improved. His shortness of breath seems to have improved. Remains bedbound. Remains in atrial fibrillation. Review of Systems Review of Systems Yes Unobtainable due to mental condition and Unobtainable due to mental status Reports confusion Psychiatric: Reports confusion Physical Exam Vital Signs: Last Vital Signs Temp 98.0 F 11/22/20 11:46 Pulse 99 11/22/20 11:46 Resp 16 11/22/20 11:46 BP 122/68 11/22/20 11:46 Pulse Ox 100 11/22/20 11:46 Body Mass Index 22.1 Const General: acute distress mild and respiratory, confusion and ill appearing Nutritional Appearance: malnourished Orientation/consciousness: confusion Limitations: other limitations (Bed-bound) HENMT Head: Yes normocephalic and Yes atraumatic Neck Neck: Yes JVD Resp Effort & Inspection: decreased respiratory effort Auscultation: diminished lung sounds Cardio Palpation: abnormal PMI Rhythm: abnormal rhythm irregularly irregular Heart sounds: S1 normal heart sound present and S2 normal heart sound present GI Inspection: Yes distended Neuro General: confusion Extrem General: Yes edema (Generalized anasarca) Results Labs and Meds Result diagrams: 11/22/20 05:49 11/22/20 05:49 Lab results: Laboratory Results - last 24 hr 11/22/20 11/22/20 11/22/20 05:49 05:49 05:49 WBC 4.3 L RBC 3.89 L Hgb 7.9 L Hct 23.1 L MCV 59.4 L MCH 20.3 L MCHC 34.2 RDW 21.9 H Plt Count 50 L MPV Not Reportable Immature Gran % (Auto) 0.2 Neut % (Auto) 65.2 Lymph % (Auto) 9.1 L [place] % (Auto) 15.0 H Eos % (Auto) 10.3 H Baso % (Auto) 0.2 Lymph # (Auto) 0.4 L [place] # (Auto) 0.6 Eos # (Auto) 0.4 Baso # (Auto) 0.0 Abs Immat Gran (auto) 0.01 Absolute Neuts (auto) 2.8 Absolute Nucleated RBC 0.170 H Nucleated RBC % (auto) 4.0 H Smear Tech's Comments VERIFIED PT 28.9 H INR 2.4 H Sodium 131 L Potassium 2.8 L Chloride 93 L Carbon Dioxide 22 Anion Gap 19 BUN 51 H Creatinine 1.80 H Estim Creat Clear Calc 41.8 Estimated GFR 39 POC Glucose Fasting Glucose 43 L* Calcium 8.1 L 11/22/20 11/22/20 11/22/20 07:49 08:14 09:18 WBC RBC Hgb Hct MCV MCH MCHC RDW Plt Count MPV Immature Gran % (Auto) Neut % (Auto) Lymph % (Auto) [place] % (Auto) Eos % (Auto) Baso % (Auto) Lymph # (Auto) [place] # (Auto) Eos # (Auto) Baso # (Auto) Abs Immat Gran (auto) Absolute Neuts (auto) Absolute Nucleated RBC Nucleated RBC % (auto) Smear Tech's Comments PT INR Sodium Potassium Chloride Carbon Dioxide Anion Gap BUN Creatinine Estim Creat Clear Calc Estimated GFR POC Glucose 52 L* 68 109 Fasting Glucose Calcium Progress Note: A&P Assessment and plan (1) Right heart failure: Status: Acute Assessment and Plan: Severe end-stage right-sided heart failure with significant RV enlargement and dysfunction with wide open tricuspid regurgitation with bundle right ventricle and setting of severe rheumatic mitral stenosis and prior severe pulmonary hypertension. Clinically improving gradually. His renal function is improving. Continue to maintain high dose of diuretics with gentle diuresis. Continue monitor strict I&Os Q shift. Continue to monitor BMP and BNP. Prognosis is extremely limited and guarded. Consider palliative care. Renal following with the patient. Will follow with the patient. Fall Risk Details Current Medications: Current Medications Generic Name Dose Route Start Last Admin Trade Name Freq PRN Reason Stop Dose Admin Guaifenesin 5 ml 11/20/20 10:44 11/21/20 00:01 Guaifenesin 100 Mg/5 Ml Liquid PO 5 ml Q6H PRN Administration Cough Bumetanide 25 mg/ IV 100 mls @ 6 mls/hr 11/19/20 13:00 11/22/20 00:38 Miscellaneous Supplies IVCONT 1 mg/hr .[id number] [facility] 4 mls/hr Administration 1.5 MG/HR Levothyroxine Sodium 50 mcg 11/20/20 06:00 11/22/20 05:35 Levothyroxine Sodium 50 Mcg Tablet PO 50 mcg DAILY@0600 [facility] Administration Sodium Chloride 3 ml 11/20/20 00:00 11/22/20 07:45 0.9 % Sodium Chloride Flush 3 Ml Syringe IVFLUSH 3 ml QSHIFT [facility] Administration Warfarin Sodium 5 mg 11/21/20 18:00 11/21/20 18:24 Warfarin Sodium 5 Mg Tablet PO 5 mg DAILY@1800 [facility] Administration Time Spent With Patient Time: Total time spent is greater than 50% in coordination of care (as documented) at patient's floor/unit and/or counseling patient: Time with patient: 25 - 35 minutes
--- NOTE | 2020-11-22 14:10 | PC.NURSE ---
0745- Critical fasting glucose 43, POC checked 52. Pt asymptomatic. Dr. Ortega made aware. Pt given orange juice. 0814- POC rechecked 68. Pt's breakfast tray at bedside. Pt ate 50% of breakfast. 0918- POC rechecked 109. Will continue to monitor.
--- NOTE | 2020-11-22 14:47 | PC.NURSE ---
Pt qualified for airloss bed. Order placed per protocol. No airloss pumps available at this time. Will continue to reposition pt Q2 hrs. Will pass on in report need for airloss bed.
--- NOTE | 2020-11-22 14:53 | MHC.CM.PN ---
DP NO [facility] OR SNF; BECAUSE HIS INSURANCE DOES NOT COVER. DP IS HOME WITH [facility]. HE IS ELIGABLE FOR BASIC INSURANCE ONLY DUE TO NON-CITIZEN STATUS. hE WILL GO HOME WITH FAMILY ASSIST. FAMILY WILL PROVIDE TRANSPORTATION.
--- NOTE | 2020-11-22 16:33 | P.PNNP_ITS ---
Subjective Subjective Date of Service: 11/22/20 Principal diagnosis: Congestive heart failure Interval history: seen and examiend. gen edema uE > LE Physical Exam Vital Signs: Vital Signs: Last Vital Signs Temp 98.2 F 11/22/20 15:40 Pulse 81 11/22/20 15:40 Resp 20 11/22/20 15:40 BP 82/62 L 11/22/20 15:40 Pulse Ox 100 11/22/20 15:40 Body Mass Index 22.1 Const: General: no acute distress HENMT: Head: Yes normocephalic and Yes atraumatic Neck: Neck: Yes supple Resp: Auscultation: diminished lung sounds Cardio: Heart sounds: S1 normal heart sound present and S2 normal heart sound present GI: Palpation (GI): Soft to palpation and nontender Extrem: General: Yes edema Objective Data Labs CBC & Chem 7: 11/22/20 05:49 11/22/20 05:49 Labs: Laboratory Results - last 24 hr 11/22/20 11/22/20 11/22/20 05:49 05:49 05:49 WBC 4.3 L RBC 3.89 L Hgb 7.9 L Hct 23.1 L MCV 59.4 L MCH 20.3 L MCHC 34.2 RDW 21.9 H Plt Count 50 L MPV Not Reportable Immature Gran % (Auto) 0.2 Neut % (Auto) 65.2 Lymph % (Auto) 9.1 L [place] % (Auto) 15.0 H Eos % (Auto) 10.3 H Baso % (Auto) 0.2 Lymph # (Auto) 0.4 L [place] # (Auto) 0.6 Eos # (Auto) 0.4 Baso # (Auto) 0.0 Abs Immat Gran (auto) 0.01 Absolute Neuts (auto) 2.8 Absolute Nucleated RBC 0.170 H Nucleated RBC % (auto) 4.0 H Smear Tech's Comments VERIFIED PT 28.9 H INR 2.4 H Sodium 131 L Potassium 2.8 L Chloride 93 L Carbon Dioxide 22 Anion Gap 19 BUN 51 H Creatinine 1.80 H Estim Creat Clear Calc 41.8 Estimated GFR 39 POC Glucose Fasting Glucose 43 L* Calcium 8.1 L 11/22/20 11/22/20 11/22/20 07:49 08:14 09:18 WBC RBC Hgb Hct MCV MCH MCHC RDW Plt Count MPV Immature Gran % (Auto) Neut % (Auto) Lymph % (Auto) [place] % (Auto) Eos % (Auto) Baso % (Auto) Lymph # (Auto) [place] # (Auto) Eos # (Auto) Baso # (Auto) Abs Immat Gran (auto) Absolute Neuts (auto) Absolute Nucleated RBC Nucleated RBC % (auto) Smear Tech's Comments PT INR Sodium Potassium Chloride Carbon Dioxide Anion Gap BUN Creatinine Estim Creat Clear Calc Estimated GFR POC Glucose 52 L* 68 109 Fasting Glucose Calcium Microbiology Microbiology Results: Microbiology 11/19/20 11:05 Blood - Venous Blood Culture - Preliminary No growth after 48 hours. 11/19/20 10:58 Blood - Venous Blood Culture - Preliminary No growth after 48 hours. Assessment & Plan Assessment and plan (1) RUDY (acute kidney injury): Status: Acute (2) Right heart failure (secondary to left heart failure): Status: Acute (3) Pulmonary HTN: Status: Acute (4) Hyponatremia: Status: Acute (5) Anasarca: Status: Acute Assessment and Plan: 1.RUDY: cont grad improvement w diuresis c/w CRSyn and decongestive Tx improving renal func; bsl SCr 0.9 2. TBFOL: d/t cardiac dysfunc 3. Anmeia w low MCV..ques Fe def 4. HF: ques additional card intervention options other than cont diuresis 5. HypoK REC: replaceK; cont bumex drip/diuresis; consider adding aldactone once Scr close to bsl Time Spent With Patient Time: Total time spent is greater than 50% in coordination of care (as documented) at patient's floor/unit and/or counseling patient:
[2020-11-22] MEDS: Midodrine HCl 5 MG TABLET PO (16:40)
[2020-11-22] MEDS: Warfarin Sodium 5 MG TABLET PO (17:24)
--- NOTE | 2020-11-22 18:12 | PC.NURSE ---
1615- Pt BP 82/62, pulse 81. Multiple attempts made to get another BP both automatic and manual, but unsuccessful. Dr. Ortega made aware. Ordered midodrine. 1 hour after midodrine BP 107/74. Will continue to monitor.
[2020-11-22 18:17] LABS: Iron 24 mcg/dL (45-160); Percent Iron Saturation 7 % (15-50); Total Iron Binding Capacity 326 mcg/dL (228-428); Unsaturated Iron Binding 302 ug/dL
[2020-11-22 18:37] LABS: Ferritin 143 ng/mL (20-250)
[2020-11-22] MEDS: Bumetanide 25 MG in Container,Empty 0 ML 6 MG IVCONT (20:48)
[2020-11-23] VITALS (7 sets, daily range): BP systolic 90–158; BP diastolic 48–90; PULSE 65–108; RESP 16–20; TEMP 36.1–37.2; O2SAT 96–100; BMI 22.4
[2020-11-23] MEDS: Levothyroxine Sodium 50 MCG TABLET PO (05:33)
[2020-11-23 06:04] LABS: Basophils Percent Auto 0.2 % (0-2); Imm Gran Abs Auto 0.01 X10*3/uL (0.00-0.03); Imm Gran Pct Auto 0.2 % (0.0-0.4); MANUAL DIFF FLAG SCAN; PLT ABN DIST 1; PLT CLUMP 1; SCAN SMEAR FLAG 1
[2020-11-23 06:06] LABS: Eosinophils Absolute Auto 0.4 X10*3/uL (0.0-0.4); Eosinophils Percent Auto 7.6 % (0-4); Hematocrit 25.3 % (42-52); Hemoglobin 8.2 g/dl (14.0-18.0); Lymphocytes Absolute Auto 0.5 X10*3/uL (1.2-4.9); Lymphocytes Percent Auto 9.1 % (20-40); Mean Corpuscular HGB Conc 32.4 g/dl (31.0-36.0); Mean Corpuscular Hemoglobin 19.9 pg (27.0-33.0); Mean Corpuscular Volume 61.4 fL (80-98); Monocytes Absolute Auto 0.5 X10*3/uL (0.1-1.2); Monocytes Percent Auto 9.7 % (2-11); NRBC Pct Auto 2.5 /100WBC (0.0-0.2); Neutrophils Absolute Auto 3.8 X10*3/uL (2.0-8.3); Neutrophils Percent Auto 73.2 % (45-73); Red Blood Count 4.12 X10*6/uL (4.60-5.80); Red Cell Distribution Width 22.2 % (11.0-16.0); White Blood Count 5.3 X10*3/uL (4.8-10.8)
[2020-11-23 06:08] LABS: INTERNATIONAL NORM RATIO 2.8 (0.9-1.1); Prothrombin Time 33.2 SEC (10.8-13.0)
[2020-11-23 06:36] LABS: Anion Gap 22 (12-20); Blood Urea Nitrogen 45 mg/dL (9-16); Carbon Dioxide 18 mmol/L (22-29); Chloride 98 mmol/L (96-108); Creatinine Clr Calc Pharmacy 45.7; Estimated Glomerular Filt Rate 43; Glucose Fasting 80 mg/dL (60-99); Potassium 3.6 mmol/l (3.3-5.1); Sodium 134 mmol/L (135-145)
--- NOTE | 2020-11-23 06:47 | PC.NURSE ---
bumetanide drip was running at 6 ml /hr and was documented by previous shift 4ml/hr but on pump was 6ml/hr and was veryfied with other rn MARKIE .SO THERE WAS NO MISTAKE IN DELIVERY ONLY DOCUMENTATION WAS WRONG.
[2020-11-23 06:51] LABS: Platelet Count 42 X10*3/uL (160-400)
[2020-11-23 06:52] LABS: SLIDE REVIEW VERIFIED
[2020-11-23] MEDS: 0.9 % Sodium Chloride Flush 3 ML SYRINGE IVFLUSH ×3 (08:02→22:44)
[2020-11-23] MEDS: Bumetanide 25 MG in Container,Empty 0 ML 6 MG IVCONT (09:36)
--- NOTE | 2020-11-23 09:54 | HO.PM.IMPN ---
Subjective Subjective Date of Service: 11/23/20 Interval History: a bit better Cardiovascular Cardiovascular: Reports no additional cardiovascular complaints Respiratory Respiratory: Reports no additional respiratory complaints Physical Exam Vital Signs: Vital Signs: Last Vital Signs Temp 97.2 F 11/23/20 04:15 Pulse 74 11/23/20 04:15 Resp 18 11/23/20 04:15 BP 124/81 11/23/20 08:04 Pulse Ox 100 11/23/20 04:15 Body Mass Index 22.4 General: Alert, improving edema, ill appearing, no acute distress Resp: CTA bilateral CVS: S1,S2,RRR GI: soft, non tender, non distended Neuro: motor grossly intact Psych: appropriate affect Objective Data Current Medications Generic Name Dose Route Start Last Admin Trade Name Freq PRN Reason Stop Dose Admin Guaifenesin 5 ml 11/20/20 10:44 11/21/20 00:01 Guaifenesin 100 Mg/5 Ml Liquid PO 5 ml Q6H PRN Administration Cough Bumetanide 25 mg/ IV 100 mls @ 6 mls/hr 11/19/20 13:00 11/23/20 09:36 Miscellaneous Supplies IVCONT 1.5 mg/hr .[id number] [facility] 6 mls/hr Administration 1.5 MG/HR Levothyroxine Sodium 50 mcg 11/20/20 06:00 11/23/20 05:33 Levothyroxine Sodium 50 Mcg Tablet PO 50 mcg DAILY@0600 [facility] Administration Sodium Chloride 3 ml 11/20/20 00:00 11/23/20 08:02 0.9 % Sodium Chloride Flush 3 Ml Syringe IVFLUSH 3 ml QSHIFT [facility] Administration Warfarin Sodium 5 mg 11/21/20 18:00 11/22/20 17:24 Warfarin Sodium 5 Mg Tablet PO 5 mg DAILY@1800 [facility] Administration Labs CBC & Chem 7: 11/23/20 05:02 11/23/20 05:02 Microbiology Microbiology Results: Microbiology 11/19/20 11:05 Blood - Venous Blood Culture - Preliminary No growth after 48 hours. 11/19/20 10:58 Blood - Venous Blood Culture - Preliminary No growth after 48 hours. Assessment and Plan (1) RUDY (acute kidney injury): Status: Acute (2) Acute on chronic right-sided congestive heart failure: Status: Acute (3) Hypothermia: Status: Acute (4) Acute pericardial effusion: Status: Acute (5) Pleural effusion: Status: Acute (6) Medical non-compliance: Status: Acute (7) Persistent atrial fibrillation: Status: Acute (8) Rheumatic mitral stenosis: Status: Acute (9) Pulmonary hypertension: Status: Acute (10) Anasarca: Status: Acute Assessment and Plan: 60M presented with anasarca Acute on chronic right-sided congestive heart failure due to severe rheumatic mitral stenosis complicated by acute kidney injury and oliguria, pericardial effusion urine output has picked up some, and edema improving, continue 1.5mg/hr bumex, still volume overloaded, renal function improving with diuresis cardio and nephrology following grave prognosis Hypothermia now resolved hypothyroid Synthroid, afib with mitral stenosis coumadin, inr 2-3
--- NOTE | 2020-11-23 12:07 | PM.PNCARD ---
Subjective Subjective Date of Service: 11/23/20 Principal diagnosis: Congestive heart failure Interval history: Patient diuresing gently. Mental status much improved. Breathing is improved. Cough is better. Appears less short of breath. Kidney functions improving. Review of Systems Constitutional: Denies body ache(s) and Denies fever(s) Cardiovascular: Denies chest pain, Denies lightheadedness, Denies palpitations and Reports dyspnea Respiratory: Denies cough and Reports dyspnea Gastrointestinal: Reports bloating Musculoskeletal: Reports no additional musculoskeletal complaints Reports confusion Psychiatric: Reports confusion Endocrine: Denies palpitations Physical Exam Vital Signs: Last Vital Signs Temp 97.8 F 11/23/20 11:17 Pulse 73 11/23/20 11:17 Resp 16 11/23/20 11:17 BP 158/86 H 11/23/20 11:17 Pulse Ox 96 11/23/20 11:17 Body Mass Index 22.4 Const General: alert and confusion Nutritional Appearance: Edematous Orientation/consciousness: confusion HENMT Head: Yes normocephalic and Yes atraumatic Neck Neck: Yes trachea midline, Yes supple and Yes JVD Resp Effort & Inspection: normal respiratory effort Auscultation: diminished lung sounds Cardio Palpation: abnormal PMI displaced PMI Rhythm: abnormal rhythm irregularly irregular Heart sounds: S1 normal heart sound present and S2 normal heart sound present GI Inspection: Yes distended Auscultation: normal bowel sounds Skin General skin exam: no rashes or lesions noted Neuro General: confusion Results Labs and Meds Result diagrams: 11/23/20 05:02 11/23/20 05:02 Lab results: Laboratory Results - last 24 hr 11/22/20 11/23/20 11/23/20 05:49 05:02 05:02 WBC 5.3 RBC 4.12 L Hgb 8.2 L Hct 25.3 L MCV 61.4 L MCH 19.9 L MCHC 32.4 RDW 22.2 H Plt Count 42 L MPV Not Reportable Immature Gran % (Auto) 0.2 Neut % (Auto) 73.2 H Lymph % (Auto) 9.1 L [place] % (Auto) 9.7 Eos % (Auto) 7.6 H Baso % (Auto) 0.2 Lymph # (Auto) 0.5 L [place] # (Auto) 0.5 Eos # (Auto) 0.4 Baso # (Auto) 0.0 Abs Immat Gran (auto) 0.01 Absolute Neuts (auto) 3.8 Absolute Nucleated RBC 0.130 H Nucleated RBC % (auto) 2.5 H Smear Tech's Comments VERIFIED PT 33.2 H INR 2.8 H Sodium Potassium Chloride Carbon Dioxide Anion Gap BUN Creatinine Estim Creat Clear Calc Estimated GFR Fasting Glucose Calcium Magnesium Iron 24 L TIBC 326 % Saturation 7 L Unsat Iron Binding 302 Ferritin 143 11/23/20 05:02 WBC RBC Hgb Hct MCV MCH MCHC RDW Plt Count MPV Immature Gran % (Auto) Neut % (Auto) Lymph % (Auto) [place] % (Auto) Eos % (Auto) Baso % (Auto) Lymph # (Auto) [place] # (Auto) Eos # (Auto) Baso # (Auto) Abs Immat Gran (auto) Absolute Neuts (auto) Absolute Nucleated RBC Nucleated RBC % (auto) Smear Tech's Comments PT INR Sodium 134 L Potassium 3.6 D Chloride 98 Carbon Dioxide 18 L Anion Gap 22 H BUN 45 H Creatinine 1.66 H Estim Creat Clear Calc 45.7 Estimated GFR 43 Fasting Glucose 80 D Calcium 8.0 L Magnesium 2.0 Iron TIBC % Saturation Unsat Iron Binding Ferritin Progress Note: A&P Assessment and plan (1) Right heart failure: Status: Acute Assessment and Plan: Severe right heart failure, advanced secondary to burned-out RV with significant dilatation dysfunction with secondary TR in the setting rheumatic mitral stenosis and prior pulmonary hypertension. Clinically improving gradually with IV diuresis. Continue the same. Still markedly fluid overloaded. Continue strict intake and output chart. Continue to trend BMP and BNP. Continue supportive care. Prognosis overall is guarded. Not a candidate for any interventions at current time. Will follow the patient Fall Risk Details Current Medications: Current Medications Generic Name Dose Route Start Last Admin Trade Name Freq PRN Reason Stop Dose Admin Guaifenesin 5 ml 11/20/20 10:44 11/21/20 00:01 Guaifenesin 100 Mg/5 Ml Liquid PO 5 ml Q6H PRN Administration Cough Bumetanide 25 mg/ IV 100 mls @ 6 mls/hr 11/19/20 13:00 11/23/20 09:36 Miscellaneous Supplies IVCONT 1.5 mg/hr .[id number] [facility] 6 mls/hr Administration 1.5 MG/HR Levothyroxine Sodium 50 mcg 11/20/20 06:00 11/23/20 05:33 Levothyroxine Sodium 50 Mcg Tablet PO 50 mcg DAILY@0600 [facility] Administration Sodium Chloride 3 ml 11/20/20 00:00 11/23/20 08:02 0.9 % Sodium Chloride Flush 3 Ml Syringe IVFLUSH 3 ml QSHIFT [facility] Administration Warfarin Sodium 5 mg 11/21/20 18:00 11/22/20 17:24 Warfarin Sodium 5 Mg Tablet PO 5 mg DAILY@1800 [facility] Administration Time Spent With Patient Time: Total time spent is greater than 50% in coordination of care (as documented) at patient's floor/unit and/or counseling patient: Time with patient: 25 - 35 minutes
[2020-11-23] MEDS: Warfarin Sodium 5 MG TABLET PO (17:41)
--- NOTE | 2020-11-23 18:42 | P.PNNP_ITS ---
Subjective Subjective Date of Service: 11/23/20 Principal diagnosis: Congestive heart failure Interval history: seen and examied. events noted. Cont diuresis Physical Exam Vital Signs: Vital Signs: Last Vital Signs Temp 98.9 F 11/23/20 16:00 Pulse 65 11/23/20 16:00 Resp 18 11/23/20 16:00 BP 135/90 H 11/23/20 16:00 Pulse Ox 100 11/23/20 16:00 Body Mass Index 22.4 Const: General: no acute distress HENMT: Head: Yes normocephalic and Yes atraumatic Neck: Neck: Yes supple Resp: Auscultation: diminished lung sounds Cardio: Heart sounds: S1 normal heart sound present and S2 normal heart sound present GI: Palpation (GI): Soft to palpation and nontender Extrem: General: Yes edema Objective Data Labs CBC & Chem 7: 11/23/20 05:02 11/23/20 05:02 Labs: Laboratory Results - last 24 hr 11/23/20 11/23/20 11/23/20 05:02 05:02 05:02 WBC 5.3 RBC 4.12 L Hgb 8.2 L Hct 25.3 L MCV 61.4 L MCH 19.9 L MCHC 32.4 RDW 22.2 H Plt Count 42 L MPV Not Reportable Immature Gran % (Auto) 0.2 Neut % (Auto) 73.2 H Lymph % (Auto) 9.1 L [place] % (Auto) 9.7 Eos % (Auto) 7.6 H Baso % (Auto) 0.2 Lymph # (Auto) 0.5 L [place] # (Auto) 0.5 Eos # (Auto) 0.4 Baso # (Auto) 0.0 Abs Immat Gran (auto) 0.01 Absolute Neuts (auto) 3.8 Absolute Nucleated RBC 0.130 H Nucleated RBC % (auto) 2.5 H Smear Tech's Comments VERIFIED PT 33.2 H INR 2.8 H Sodium 134 L Potassium 3.6 D Chloride 98 Carbon Dioxide 18 L Anion Gap 22 H BUN 45 H Creatinine 1.66 H Estim Creat Clear Calc 45.7 Estimated GFR 43 Fasting Glucose 80 D Calcium 8.0 L Magnesium 2.0 Microbiology Microbiology Results: Microbiology 11/19/20 11:05 Blood - Venous Blood Culture - Preliminary No growth after 48 hours. 11/19/20 10:58 Blood - Venous Blood Culture - Preliminary No growth after 48 hours. Assessment & Plan Assessment and plan (1) RUDY (acute kidney injury): Status: Acute (2) Right heart failure (secondary to left heart failure): Status: Acute (3) Pulmonary HTN: Status: Acute (4) Hyponatremia: Status: Acute (5) Anasarca: Status: Acute Assessment and Plan: 1.RUDY: cont grad improvement w diuresis c/w CRSyn and decongestive Tx improving renal func; bsl SCr 0.9 2. TBFOL: d/t cardiac dysfunc 3. Anmeia w low MCV..ques Fe def 4. HF: ques additional card intervention options other than cont diuresis 5. HypoK REC: no new recs... replaceK; cont bumex drip/diuresis; consider adding aldactone once Scr close to bsl Time Spent With Patient Time: Total time spent is greater than 50% in coordination of care (as documented) at patient's floor/unit and/or counseling patient:
--- NOTE | 2020-11-23 18:44 | PC.NURSE ---
Patient continues on bumex gtt. Refused to get OOB today. Continues to ask for PO fluids. Fluids restricted per MD Ortega. Minor nose bleed from R nare noted. Resolved on its own. Vitals stable. Will continue to monitor.
[2020-11-24] MEDS: Bumetanide 25 MG in Container,Empty 0 ML 6 MG IVCONT (01:36)
[2020-11-24 04:00] VITALS: BP 100/74; PULSE 84; RESP 18; TEMP 36.6; O2SAT 100
[2020-11-24] MEDS: Levothyroxine Sodium 50 MCG TABLET PO (05:33)
[2020-11-24 06:00] VITALS: BMI 23.1
[2020-11-24 07:07] LABS: INTERNATIONAL NORM RATIO 4.2 (0.9-1.1)
[2020-11-24 07:36] LABS: Anion Gap 16 (12-20); Blood Urea Nitrogen 34 mg/dL (9-16); Calcium 7.7 mg/dL (8.4-10.2); Carbon Dioxide 24 mmol/L (22-29); Chloride 96 mmol/L (96-108); Creatinine Clr Calc Pharmacy 63.3; Estimated Glomerular Filt Rate > 60; Glucose Fasting 77 mg/dL (60-99); Potassium 2.8 mmol/l (3.3-5.1); Sodium 133 mmol/L (135-145)
[2020-11-24 08:00] VITALS: BP 98/51; PULSE 85; RESP 18; TEMP 36.2; O2SAT 99
[2020-11-24] MEDS: Potassium Chloride ER 20 MEQ TAB.ER.PRT 40 MEQ PO (08:17)
[2020-11-24] MEDS: 0.9 % Sodium Chloride Flush 3 ML SYRINGE IVFLUSH ×2 (08:24→17:23)
--- NOTE | 2020-11-24 10:58 | HO.PM.IMPN ---
Subjective Subjective Date of Service: 11/24/20 Interval History: still with scrotal swelling but less overall edema, states he is feeling better Respiratory Respiratory: Reports no additional respiratory complaints Gastrointestinal Gastrointestinal: Reports no additional gastrointestinal complaints Physical Exam Vital Signs: Vital Signs: Last Vital Signs Temp 97.1 F 11/24/20 08:00 Pulse 85 11/24/20 08:00 Resp 18 11/24/20 08:00 BP 98/51 L 11/24/20 08:00 Pulse Ox 99 11/24/20 08:00 Body Mass Index 23.1 General: AO X 3, no acute distress Resp: CTA bilateral CVS: S1,S2,RRR, scrotal and facial edema, improving GI: soft, non tender, non distended Neuro: motor grossly intact Psych: appropriate affect , impaired insight Objective Data Current Medications Generic Name Dose Route Start Last Admin Trade Name Freq PRN Reason Stop Dose Admin Guaifenesin 5 ml 11/20/20 10:44 11/21/20 00:01 Guaifenesin 100 Mg/5 Ml Liquid PO 5 ml Q6H PRN Administration Cough Bumetanide 25 mg/ IV 100 mls @ 6 mls/hr 11/19/20 13:00 11/24/20 01:36 Miscellaneous Supplies IVCONT 1.5 mg/hr .[id number] [facility] 6 mls/hr Administration 1.5 MG/HR Levothyroxine Sodium 50 mcg 11/20/20 06:00 11/24/20 05:33 Levothyroxine Sodium 50 Mcg Tablet PO 50 mcg DAILY@0600 [facility] Administration Sodium Chloride 3 ml 11/20/20 00:00 11/24/20 08:24 0.9 % Sodium Chloride Flush 3 Ml Syringe IVFLUSH 3 ml QSHIFT [facility] Administration Warfarin Sodium 5 mg 11/21/20 18:00 11/23/20 17:41 Warfarin Sodium 5 Mg Tablet PO 5 mg DAILY@1800 [facility] Administration Labs CBC & Chem 7: 11/23/20 05:02 11/24/20 06:20 Microbiology Microbiology Results: Microbiology 11/19/20 11:05 Blood - Venous Blood Culture - Preliminary No growth after 48 hours. 11/19/20 10:58 Blood - Venous Blood Culture - Preliminary No growth after 48 hours. Assessment and Plan (1) RUDY (acute kidney injury): Status: Acute (2) Acute on chronic right-sided congestive heart failure: Status: Acute (3) Hypothermia: Status: Acute (4) Acute pericardial effusion: Status: Acute (5) Pleural effusion: Status: Acute (6) Medical non-compliance: Status: Acute (7) Persistent atrial fibrillation: Status: Acute (8) Rheumatic mitral stenosis: Status: Acute (9) Pulmonary hypertension: Status: Acute (10) Anasarca: Status: Acute Assessment and Plan: 60M presented with anasarca Acute on chronic right-sided congestive heart failure due to severe rheumatic mitral stenosis complicated by acute kidney injury and oliguria, pericardial effusion urine output and edema continue to improve continue 1.5mg/hr bumex, still volume overloaded renal function improving with diuresis, monitor closely cardio and nephrology following overall grave prognosis - brother aware Hypothermia now resolved hypothyroid Synthroid, afib with mitral stenosis coumadin, inr 2-3
--- NOTE | 2020-11-24 11:35 | PM.PNNEP ---
Subjective Subjective Date of Service: 11/24/20 Principal diagnosis: Congestive heart failure Interval history: still with scrotal swelling but less overall edema, states he is feeling better Physical Exam Vital Signs: Vital Signs: Last Vital Signs Temp 97.1 F 11/24/20 08:00 Pulse 85 11/24/20 08:00 Resp 18 11/24/20 08:00 BP 98/51 L 11/24/20 08:00 Pulse Ox 99 11/24/20 08:00 Body Mass Index 23.1 Const: General: no acute distress HENMT: Head: Yes normocephalic and Yes atraumatic Neck: Neck: Yes supple Resp: Auscultation: diminished lung sounds Cardio: Heart sounds: S1 normal heart sound present and S2 normal heart sound present GI: Palpation (GI): Soft to palpation and nontender Extrem: General: Yes edema Objective Data Labs CBC & Chem 7: 11/23/20 05:02 11/24/20 06:20 Labs: Laboratory Results - last 24 hr 11/24/20 11/24/20 06:20 06:20 PT 51.0 H D INR 4.2 H Sodium 133 L Potassium 2.8 L D Chloride 96 Carbon Dioxide 24 Anion Gap 16 BUN 34 H Creatinine 1.23 Estim Creat Clear Calc 63.3 Estimated GFR > 60 Fasting Glucose 77 Calcium 7.7 L Microbiology Microbiology Results: Microbiology 11/19/20 11:05 Blood - Venous Blood Culture - Preliminary No growth after 48 hours. 11/19/20 10:58 Blood - Venous Blood Culture - Preliminary No growth after 48 hours. Assessment & Plan Assessment and plan (1) RUDY (acute kidney injury): Status: Acute (2) Right heart failure (secondary to left heart failure): Status: Acute (3) Pulmonary HTN: Status: Acute (4) Hyponatremia: Status: Acute (5) Anasarca: Status: Acute Assessment and Plan: 1.RUDY: cont grad improvement w diuresis c/w CRSyn and decongestive Tx improving renal func; bsl SCr 0.9 2. TBFOL: d/t cardiac dysfunc 3. Anmeia w low MCV..ques Fe def 4. HF: ques additional card intervention options other than cont diuresis 5. HypoK REC: no new recs... replace K; cont bumex drip/diuresis; consider adding aldactone once Scr close to bsl Time Spent With Patient Time: Total time spent is greater than 50% in coordination of care (as documented) at patient's floor/unit and/or counseling patient:
[2020-11-24 12:00] VITALS: BP 113/76; PULSE 112; RESP 18; TEMP 36.4; O2SAT 99
--- NOTE | 2020-11-24 12:49 | P.PNCA_ITS ---
Subjective Subjective Date of Service: 11/24/20 Principal diagnosis: Congestive heart failure Interval history: Patient much more awake. Diuresing well. Creatinine is improved significantly. Denies cough. Shortness of breath is improving. Still has significant overall swelling. Review of Systems Review of Systems Yes Unobtainable due to mental status Reports confusion Psychiatric: Reports confusion Physical Exam Vital Signs: Last Vital Signs Temp 97.1 F 11/24/20 08:00 Pulse 85 11/24/20 08:00 Resp 18 11/24/20 08:00 BP 98/51 L 11/24/20 08:00 Pulse Ox 99 11/24/20 08:00 Body Mass Index 23.1 Const General: comfortable, alert, awake and confusion Nutritional Appearance: malnourished and Edematous Orientation/consciousness: confusion HENMT Head: Yes normocephalic and Yes atraumatic Neck Neck: Yes JVD Chest Chest palpation & inspection: normal inspection of the chest Resp Effort & Inspection: decreased respiratory effort Auscultation: no crackles, no rales and diminished lung sounds Cardio Palpation: abnormal PMI displaced PMI Rhythm: abnormal rhythm irregularly irregular Heart sounds: S1 normal heart sound present and S2 normal heart sound present GI Inspection: Yes distended Neuro General: no focal motor deficits and confusion Results Labs and Meds Result diagrams: 11/23/20 05:02 11/24/20 06:20 Lab results: Laboratory Results - last 24 hr 11/24/20 11/24/20 06:20 06:20 PT 51.0 H D INR 4.2 H Sodium 133 L Potassium 2.8 L D Chloride 96 Carbon Dioxide 24 Anion Gap 16 BUN 34 H Creatinine 1.23 Estim Creat Clear Calc 63.3 Estimated GFR > 60 Fasting Glucose 77 Calcium 7.7 L Progress Note: A&P Assessment and plan (1) Right heart failure: Status: Acute Assessment and Plan: Advanced right heart failure, severe and possibly end-stage with severe RV enlargement and dysfunction with wide open tricuspid regurgitation. This is secondary to rheumatic mitral stenosis, and prior pulmonary hypertension. Clinically improving gradually with improving kidney function with diuresis. Continue IV diuresis, would reduce to Bumex 1 mg an hour drip to avoid over- diuresis. Continue strict intake and output chart. Prognosis remains poor in the termination clerk. Continue to monitor BMP and BNP. Will follow the patient. Fall Risk Details Current Medications: Current Medications Generic Name Dose Route Start Last Admin Trade Name Freq PRN Reason Stop Dose Admin Guaifenesin 5 ml 11/20/20 10:44 11/21/20 00:01 Guaifenesin 100 Mg/5 Ml Liquid PO 5 ml Q6H PRN Administration Cough Bumetanide 25 mg/ IV 100 mls @ 6 mls/hr 11/19/20 13:00 11/24/20 01:36 Miscellaneous Supplies IVCONT 1.5 mg/hr .[id number] [facility] 6 mls/hr Administration 1.5 MG/HR Levothyroxine Sodium 50 mcg 11/20/20 06:00 11/24/20 05:33 Levothyroxine Sodium 50 Mcg Tablet PO 50 mcg DAILY@0600 [facility] Administration Sodium Chloride 3 ml 11/20/20 00:00 11/24/20 08:24 0.9 % Sodium Chloride Flush 3 Ml Syringe IVFLUSH 3 ml QSHIFT [facility] Administration Warfarin Sodium 5 mg 11/21/20 18:00 11/23/20 17:41 Warfarin Sodium 5 Mg Tablet PO 5 mg DAILY@1800 [facility] Administration Time Spent With Patient Time: Total time spent is greater than 50% in coordination of care (as documented) at patient's floor/unit and/or counseling patient: Time with patient: 25 - 35 minutes
[2020-11-24 16:41] VITALS: BP 115/72; PULSE 81; RESP 18; TEMP 36.6; O2SAT 100
[2020-11-24] MEDS: Bumetanide 25 MG in Container,Empty 0 ML 4 MG IVCONT (17:21)
[2020-11-24 20:00] VITALS: BP 138/76; PULSE 83; RESP 20; TEMP 37; O2SAT 98
[2020-11-24 23:54] VITALS: BP 100/52; PULSE 83; RESP 18; TEMP 36.6; O2SAT 98
[2020-11-25 03:49] VITALS: BP 110/49; PULSE 81; RESP 18; TEMP 36.2; O2SAT 98
[2020-11-25] MEDS: Levothyroxine Sodium 50 MCG TABLET PO (05:02)
[2020-11-25 06:00] VITALS: BMI 22.2
[2020-11-25 06:39] LABS: INTERNATIONAL NORM RATIO 4.8 (0.9-1.1); Prothrombin Time 58.3 SEC (10.8-13.0)
[2020-11-25 06:48] LABS: Basophils Percent Auto 0.4 % (0-2); Imm Gran Abs Auto 0.01 X10*3/uL (0.00-0.03); Imm Gran Pct Auto 0.2 % (0.0-0.4); MANUAL DIFF FLAG SCAN; Monocytes Absolute Auto 0.8 X10*3/uL (0.1-1.2); SCAN SMEAR FLAG 1
[2020-11-25 06:51] LABS: Eosinophils Absolute Auto 0.7 X10*3/uL (0.0-0.4); Eosinophils Percent Auto 12.5 % (0-4); Hematocrit 24.9 % (42-52); Hemoglobin 8.4 g/dl (14.0-18.0); Lymphocytes Absolute Auto 0.6 X10*3/uL (1.2-4.9); Lymphocytes Percent Auto 11.5 % (20-40); Mean Corpuscular HGB Conc 33.7 g/dl (31.0-36.0); Mean Corpuscular Hemoglobin 20.3 pg (27.0-33.0); Monocytes Percent Auto 14.5 % (2-11); Neutrophils Absolute Auto 3.3 X10*3/uL (2.0-8.3); Neutrophils Percent Auto 60.9 % (45-73); Red Blood Count 4.14 X10*6/uL (4.60-5.80); Red Cell Distribution Width 21.7 % (11.0-16.0); White Blood Count 5.4 X10*3/uL (4.8-10.8)
[2020-11-25 06:56] LABS: Mean Corpuscular Volume 60.1 fL (80-98); NRBC Pct Auto 2.8 /100WBC (0.0-0.2); PLT ABN DIST 1; Platelet Count 45 X10*3/uL (160-400)
[2020-11-25 07:37] LABS: Anion Gap 16 (12-20); Blood Urea Nitrogen 29 mg/dL (9-16); Calcium 7.5 mg/dL (8.4-10.2); Carbon Dioxide 25 mmol/L (22-29); Chloride 96 mmol/L (96-108); Creatinine Clr Calc Pharmacy 76.2; Estimated Glomerular Filt Rate > 60; Glucose Fasting 68 mg/dL (60-99); Magnesium 1.3 mg/dL (1.6-2.6); Potassium 2.8 mmol/l (3.3-5.1); Sodium 134 mmol/L (135-145)
[2020-11-25 07:49] LABS: SLIDE REVIEW VERIFIED
[2020-11-25] MEDS: 0.9 % Sodium Chloride Flush 3 ML SYRINGE IVFLUSH ×3 (07:51→20:06)
[2020-11-25 08:00] VITALS: BP 125/66; PULSE 90; RESP 20; TEMP 36.8; O2SAT 99
[2020-11-25 08:58] VITALS: BP 125/66; PULSE 90
[2020-11-25] MEDS: Magnesium Sulfate/H2O 2 GM/50 ML PIGGYBACK IV (08:58)
[2020-11-25] MEDS: Spironolactone 25 MG TABLET PO (08:58)
[2020-11-25] MEDS: Potassium Chloride ER 20 MEQ TAB.ER.PRT 40 MEQ PO ×2 (08:58→20:02)
--- NOTE | 2020-11-25 10:11 | PM.PNCARD ---
Subjective Subjective Date of Service: 11/25/20 Principal diagnosis: Congestive heart failure Interval history: He states that his swelling is coming down. Otherwise no specific complaints. Review of Systems Review of Systems Yes all other systems are reviewed and are negative Cardiovascular: Reports as per HPI, Reports no additional cardiovascular complaints, Denies Abdominal Cramping after Meds, Denies Abdominal Distension, Denies acrocyanosis, Denies cool extremities, Denies painful fingertips, Denies chest pain, Denies chest pain at rest, Denies chest pain with activity, Denies Epigastric Pain, Denies diaphoresis, Denies syncope, Denies rapid heart rate, Denies pedal edema, Reports edema, Denies irregular heart rhythm, Denies claudication, Reports leg edema, Denies lightheadedness, Denies Loss of Consciousness, Denies radiating jaw, neck or arm pain, Denies palpitations and Reports dyspnea on exertion Respiratory: Reports dyspnea on exertion Denies syncope Endocrine: Denies palpitations Physical Exam Vital Signs: Last Vital Signs Temp 98.2 F 11/25/20 08:00 Pulse 90 11/25/20 08:58 Resp 20 11/25/20 08:00 BP 125/66 11/25/20 08:58 Pulse Ox 99 11/25/20 08:00 Body Mass Index 22.2 Const General: cooperative, comfortable and no acute distress Orientation/consciousness: patient oriented x3 HENMT Other: Unremarkable Neck Neck: Yes normal visual inspection Chest Chest palpation & inspection: normal inspection of the chest Resp Auscultation: clear to auscultation bilaterally, no crackles and no wheezes Cardio Jugular venous distension: no JVD Palpation: normal PMI Heart sounds: S1 normal heart sound present, S2 normal heart sound present, Gallop heart sound present, no murmurs and no rubs GI Palpation (GI): Soft to palpation Back/Spine/Pelvis Other: unremarkable Skin General skin exam: no rashes or lesions noted Neuro General: patient oriented x3 Extrem General: Yes edema (1+; hands and lower extremities. ) Psych Mental Status: mental status grossly normal Results Labs and Meds Result diagrams: 11/25/20 05:55 11/25/20 05:55 Lab results: Laboratory Results - last 24 hr 11/25/20 11/25/20 11/25/20 05:55 05:55 05:55 WBC 5.4 RBC 4.14 L Hgb 8.4 L Hct 24.9 L MCV 60.1 L MCH 20.3 L MCHC 33.7 RDW 21.7 H Plt Count 45 L MPV Not Reportable Immature Gran % (Auto) 0.2 Neut % (Auto) 60.9 Lymph % (Auto) 11.5 L [place] % (Auto) 14.5 H Eos % (Auto) 12.5 H Baso % (Auto) 0.4 Lymph # (Auto) 0.6 L [place] # (Auto) 0.8 Eos # (Auto) 0.7 H Baso # (Auto) 0.0 Abs Immat Gran (auto) 0.01 Absolute Neuts (auto) 3.3 Absolute Nucleated RBC 0.150 H Nucleated RBC % (auto) 2.8 H Smear Tech's Comments VERIFIED PT 58.3 H INR 4.8 H Sodium 134 L Potassium 2.8 L Chloride 96 Carbon Dioxide 25 Anion Gap 16 BUN 29 H Creatinine 0.99 Estim Creat Clear Calc 76.2 Estimated GFR > 60 Fasting Glucose 68 Calcium 7.5 L Magnesium 1.3 L* Progress Note: A&P Assessment and plan (1) Rheumatic mitral stenosis: Status: Acute (2) Pulmonary hypertension: Status: Acute (3) Acute on chronic right heart failure: Status: Acute (4) Persistent atrial fibrillation: Status: Acute Assessment and Plan: He has advanced mitral stenosis, pulmonary hypertension with right heart failure. Due to severe psychiatric issues, he is not considered to be a candidate for any cardiac interventions. He has been on Bumex drip since admission. We can probably stop that today and give him a break as electrolytes are quite abnormal. Otherwise, his platelet counts are also down and we can hold Coumadin considering the supratherapeutic INR. Overall guarded prognosis. Fall Risk Details Current Medications: Current Medications Generic Name Dose Route Start Last Admin Trade Name Freq PRN Reason Stop Dose Admin Ferrous Sulfate 324 mg 11/25/20 12:00 Ferrous Sulfate 324 Mg Tablet.Dr PO TIDWM EUSEBIO Guaifenesin 5 ml 11/20/20 10:44 11/21/20 00:01 Guaifenesin 100 Mg/5 Ml Liquid PO 5 ml Q6H PRN Administration Cough Bumetanide 25 mg/ IV 100 mls @ 4 mls/hr 11/19/20 13:00 11/25/20 04:21 Miscellaneous Supplies IVCONT 11/25/20 11:00 0 mg/hr .Q24H EUSEBIO 0 mls/hr Infusion 1 MG/HR Bumetanide 25 mg/ IV 100 mls @ 4 mls/hr 11/25/20 11:00 Miscellaneous Supplies IVCONT .Q24H EUSEBIO 1 MG/HR Magnesium Sulfate 2 gm in 50 mls @ 25 mls/hr 11/25/20 08:17 11/25/20 08:58 IV 11/25/20 10:16 25 mls/hr ONCE ONE Administration Levothyroxine Sodium 50 mcg 11/20/20 06:00 11/25/20 05:02 Levothyroxine Sodium 50 Mcg Tablet PO 50 mcg DAILY@0600 [facility] Administration Potassium Chloride 40 meq 11/25/20 09:00 11/25/20 08:58 Potassium Chloride Er 20 Meq Tab.Er.Prt PO 40 meq BID EUSEBIO Administration Sodium Chloride 3 ml 11/20/20 00:00 11/25/20 07:51 0.9 % Sodium Chloride Flush 3 Ml Syringe IVFLUSH 3 ml QSHIFT [facility] Administration Spironolactone 25 mg 11/25/20 09:00 11/25/20 08:58 Spironolactone 25 Mg Tablet PO 25 mg DAILY EUSEBIO Administration Protocol Warfarin Sodium 5 mg 11/21/20 18:00 11/23/20 17:41 Warfarin Sodium 5 Mg Tablet PO 5 mg DAILY@1800 EUSEBIO Administration Time Spent With Patient Time: Total time spent is greater than 50% in coordination of care (as documented) at patient's floor/unit and/or counseling patient: Time with patient: less than 15 minutes
[2020-11-25 11:52] VITALS: BP 100/58; PULSE 90; RESP 20; TEMP 36.8; O2SAT 100
--- NOTE | 2020-11-25 12:05 | PM.PNNEP ---
Subjective Subjective Date of Service: 11/25/20 Principal diagnosis: Congestive heart failure Interval history: seen and examined no complaints Physical Exam Vital Signs: Vital Signs: Last Vital Signs Temp 98.2 F 11/25/20 11:52 Pulse 90 11/25/20 11:52 Resp 20 11/25/20 11:52 BP 100/58 L 11/25/20 11:52 Pulse Ox 100 11/25/20 11:52 Body Mass Index 22.2 Const: General: no acute distress HENMT: Head: Yes normocephalic and Yes atraumatic Neck: Neck: Yes supple Resp: Auscultation: diminished lung sounds Cardio: Heart sounds: S1 normal heart sound present and S2 normal heart sound present GI: Palpation (GI): Soft to palpation and nontender Extrem: Right upper extremity: edema Objective Data Labs CBC & Chem 7: 11/25/20 05:55 11/25/20 05:55 Labs: Laboratory Results - last 24 hr 11/25/20 11/25/20 11/25/20 05:55 05:55 05:55 WBC 5.4 RBC 4.14 L Hgb 8.4 L Hct 24.9 L MCV 60.1 L MCH 20.3 L MCHC 33.7 RDW 21.7 H Plt Count 45 L MPV Not Reportable Immature Gran % (Auto) 0.2 Neut % (Auto) 60.9 Lymph % (Auto) 11.5 L [place] % (Auto) 14.5 H Eos % (Auto) 12.5 H Baso % (Auto) 0.4 Lymph # (Auto) 0.6 L [place] # (Auto) 0.8 Eos # (Auto) 0.7 H Baso # (Auto) 0.0 Abs Immat Gran (auto) 0.01 Absolute Neuts (auto) 3.3 Absolute Nucleated RBC 0.150 H Nucleated RBC % (auto) 2.8 H Smear Tech's Comments VERIFIED PT 58.3 H INR 4.8 H Sodium 134 L Potassium 2.8 L Chloride 96 Carbon Dioxide 25 Anion Gap 16 BUN 29 H Creatinine 0.99 Estim Creat Clear Calc 76.2 Estimated GFR > 60 Fasting Glucose 68 Calcium 7.5 L Magnesium 1.3 L* Microbiology Microbiology Results: Microbiology 11/19/20 11:05 Blood - Venous Blood Culture - Final No growth after 5 days. 12/22/20 10:58 Blood - Venous Blood Culture - Final No growth after 5 days. Assessment & Plan Assessment and plan (1) RUDY (acute kidney injury): Status: Acute (2) Right heart failure (secondary to left heart failure): Status: Acute (3) Pulmonary HTN: Status: Acute (4) Hyponatremia: Status: Acute (5) Anasarca: Status: Acute Assessment and Plan: kidney function normalized RUDY in the setting of decompensated right heart failure consistent with type 1 cardiorenal syndrome known right heart failure with RV failure patient with severe mitral stenosis REC keep negative fluid balance replace potassium follow kidney function and electrolytes Time Spent With Patient Time: Total time spent is greater than 50% in coordination of care (as documented) at patient's floor/unit and/or counseling patient:
[2020-11-25] MEDS: Ferrous Sulfate 324 MG TABLET.DR PO ×2 (12:18→16:30)
--- NOTE | 2020-11-25 12:40 | MHC.CM.PN ---
per rounds pt not ready for dc today dc plan [facility] home pt not eligible for services as he is not a citizen
--- NOTE | 2020-11-25 12:48 | HO.PM.IMPN ---
Subjective Subjective Date of Service: 11/25/20 Interval History: Being followed for volume overload due to cardiorenal syndrome, patient feels his swelling is going down offers no acute complaints, is unable to ambulate due to shortness of breath and swelling, no acute issues overnight. Review of Systems General no headache, no dizziness, no fever chills, persistent generalized swelling but improving. CVS no chest pain, no palpitation. Respiratory shortness of breath with exertion Gastrointestinal no nausea, no vomiting, no abdominal pain Physical Exam Vital Signs: Vital Signs: Last Vital Signs Temp 98.2 F 11/25/20 11:52 Pulse 90 11/25/20 11:52 Resp 20 11/25/20 11:52 BP 100/58 L 11/25/20 11:52 Pulse Ox 100 11/25/20 11:52 Body Mass Index 22.2 General no acute distress. Neck + JVD. CVS regular rate rhythm, Respiratory lungs clear to auscultation,no respiratory distress Gastrointestinal abdomen soft, nontender, bowel sounds audible Extremities generalized edema, both upper extremities, scrotum and face. Neuro nonfocal Skin no rash Psych impaired insight Objective Data Current Medications Generic Name Dose Route Start Last Admin Trade Name Freq PRN Reason Stop Dose Admin Ferrous Sulfate 324 mg 11/25/20 12:00 11/25/20 12:18 Ferrous Sulfate 324 Mg Tablet. PO 324 mg TIDWM EUSEBIO Administration Guaifenesin 5 ml 11/20/20 10:44 11/21/20 00:01 Guaifenesin 100 Mg/5 Ml Liquid PO 5 ml Q6H PRN Administration Cough Levothyroxine Sodium 50 mcg 11/20/20 06:00 11/25/20 05:02 Levothyroxine Sodium 50 Mcg Tablet PO 50 mcg DAILY@0600 EUSE[facility] Administration Potassium Chloride 40 meq 11/25/20 09:00 11/25/20 08:58 Potassium Chloride Er 20 Meq Tab.Er.Prt PO 40 meq BID EUSEBIO Administration Sodium Chloride 3 ml 11/20/20 00:00 11/25/20 07:51 0.9 % Sodium Chloride Flush 3 Ml Syringe IVFLUSH 3 ml QSHIFT EUSEBIO Administration Spironolactone 25 mg 11/25/20 09:00 11/25/20 08:58 Spironolactone 25 Mg Tablet PO 25 mg DAILY EUSEBIO Administration Protocol Warfarin Sodium 5 mg 11/21/20 18:00 11/23/20 17:41 Warfarin Sodium 5 Mg Tablet PO 5 mg DAILY@1800 EUSEBIO Administration Labs CBC & Chem 7: 11/25/20 05:55 11/25/20 05:55 Microbiology Microbiology Results: Microbiology 11/19/20 11:05 Blood - Venous Blood Culture - Final No growth after 5 days. 11/19/20 10:58 Blood - Venous Blood Culture - Final No growth after 5 days. Assessment and Plan (1) Anasarca: Status: Acute (2) Pulmonary HTN: Status: Acute (3) Hyponatremia: Status: Acute (4) RUDY (acute kidney injury): Status: Acute (5) Acute on chronic right-sided congestive heart failure: Status: Acute (6) Persistent atrial fibrillation: Status: Acute (7) Rheumatic mitral stenosis: Status: Acute (8) Anasarca: Status: Acute Assessment and Plan: 60M presented with anasarca Acute on chronic right-sided congestive heart failure due to severe rheumatic mitral stenosis complicated by acute kidney injury and oliguria, pericardial effusion urine output and edema continue to improve, is greater than 6 L negative in last 4 days, case discussed with Cardiology they recommend to hold Bumex drip today, since renal function improving started patient on Aldactone home, will continue to follow BMP overall grave prognosis - brother aware Hypokalemia/hypomagnesemia due to diuresis will replace aggressively. Acute kidney injury in the setting of decompensated right heart failure due to type 1 cardiorenal syndrome and severe mitral stenosis Renal function normalized, will follow BMP due to electrolyte abnormality. Hypothermia resolved hypothyroid Synthroid, afib with mitral stenosis On coumadin, will hold Coumadin today due to elevated inr of 4.8
[2020-11-25 16:00] VITALS: BP 97/68; PULSE 85; RESP 16; O2SAT 100
[2020-11-25 19:23] VITALS: BP 121/54; PULSE 76; RESP 20; TEMP 36.4; O2SAT 100
[2020-11-26] VITALS (8 sets, daily range): BP systolic 98–130; BP diastolic 59–95; PULSE 71–99; RESP 16–19; TEMP 36.4–36.8; O2SAT 97–100; BMI 22.5
[2020-11-26] MEDS: Levothyroxine Sodium 50 MCG TABLET PO (05:14)
[2020-11-26 06:58] LABS: Prothrombin Time 60.5 SEC (10.8-13.0)
[2020-11-26 07:10] LABS: Anion Gap 19 (12-20); Blood Urea Nitrogen 25 mg/dL (9-16); Calcium 7.8 mg/dL (8.4-10.2); Carbon Dioxide 23 mmol/L (22-29); Chloride 95 mmol/L (96-108); Estimated Glomerular Filt Rate > 60; Glucose Random 61 mg/dL (60-115); Magnesium 1.7 mg/dL (1.6-2.6); Potassium 3.7 mmol/l (3.3-5.1); Sodium 133 mmol/L (135-145)
[2020-11-26] MEDS: 0.9 % Sodium Chloride Flush 3 ML SYRINGE IVFLUSH ×2 (07:48→16:17)
[2020-11-26] MEDS: Potassium Chloride ER 20 MEQ TAB.ER.PRT 40 MEQ PO ×2 (08:35→21:06)
[2020-11-26] MEDS: Ferrous Sulfate 324 MG TABLET.DR PO ×3 (08:35→16:17)
[2020-11-26] MEDS: Spironolactone 25 MG TABLET PO (08:42)
--- NOTE | 2020-11-26 09:50 | PM.PNCARD ---
Subjective Subjective Date of Service: 11/26/20 Principal diagnosis: Congestive heart failure Interval history: Swelling is improved but not resolved completely. Review of Systems Review of Systems Yes all other systems are reviewed and are negative Constitutional: Reports as per HPI, Reports lethargy and Reports weakness Cardiovascular: Reports as per HPI, Reports no additional cardiovascular complaints, Denies chest pain, Denies chest pain at rest, Denies syncope, Reports leg edema, Reports dyspnea, Reports dyspnea on exertion and Reports orthopnea Respiratory: Reports dyspnea and Reports dyspnea on exertion Reports confusion, Denies syncope and Reports weakness Psychiatric: Reports confusion Physical Exam Vital Signs: Last Vital Signs Temp 97.5 F 11/26/20 07:55 Pulse 96 11/26/20 08:42 Resp 19 11/26/20 07:55 BP 110/60 11/26/20 08:42 Pulse Ox 99 11/26/20 07:55 Body Mass Index 22.5 Const General: cooperative, comfortable, no acute distress and confusion Orientation/consciousness: patient oriented x3 and confusion HENMT Other: Unremarkable Neck Neck: Yes normal visual inspection Chest Chest palpation & inspection: normal inspection of the chest Resp Auscultation: clear to auscultation bilaterally, no crackles and no wheezes Cardio Jugular venous distension: no JVD Palpation: normal PMI Heart sounds: S1 normal heart sound present, S2 normal heart sound present, Gallop heart sound present, no murmurs and no rubs GI Palpation (GI): Soft to palpation Back/Spine/Pelvis Other: unremarkable Skin General skin exam: no rashes or lesions noted Neuro General: patient oriented x3 and confusion Extrem General: Yes edema (1+; hands and lower extremities. ) Psych Mental Status: mental status grossly normal Results Labs and Meds Result diagrams: 11/25/20 05:55 11/26/20 06:02 Lab results: Laboratory Results - last 24 hr 11/26/20 11/26/20 06:02 06:02 PT 60.5 H INR 5.0 H* Sodium 133 L Potassium 3.7 D Chloride 95 L Carbon Dioxide 23 Anion Gap 19 BUN 25 H Creatinine 0.97 Estim Creat Clear Calc 79.0 Estimated GFR > 60 Random Glucose 61 Calcium 7.8 L Magnesium 1.7 Progress Note: A&P Assessment and plan (1) Rheumatic mitral stenosis: Status: Acute (2) Pulmonary hypertension: Status: Acute (3) Acute on chronic right heart failure: Status: Acute (4) Persistent atrial fibrillation: Status: Acute Assessment and Plan: He has advanced mitral stenosis, pulmonary hypertension with right heart failure. Due to severe psychiatric issues, he is not considered to be a candidate for any cardiac interventions. Off Bumex drip. Start IV Bumex 3mg bid. Otherwise, his platelet counts are also down and we can hold Coumadin considering the supratherapeutic INR. Overall guarded prognosis. Fall Risk Details Current Medications: Current Medications Generic Name Dose Route Start Last Admin Trade Name Freq PRN Reason Stop Dose Admin Ferrous Sulfate 324 mg 11/25/20 12:00 11/26/20 08:35 Ferrous Sulfate 324 Mg Tablet.Dr PO 324 mg TIDWM EUSEBIO Administration Guaifenesin 5 ml 11/20/20 10:44 11/21/20 00:01 Guaifenesin 100 Mg/5 Ml Liquid PO 5 ml Q6H PRN Administration Cough Levothyroxine Sodium 50 mcg 11/20/20 06:00 11/26/20 05:14 Levothyroxine Sodium 50 Mcg Tablet PO 50 mcg DAILY@0600 EUSEBIO Administration Potassium Chloride 40 meq 11/25/20 09:00 11/26/20 08:35 Potassium Chloride Er 20 Meq Tab.Er.Prt PO 40 meq BID EUSEBIO Administration Sodium Chloride 3 ml 11/20/20 00:00 11/26/20 07:48 0.9 % Sodium Chloride Flush 3 Ml Syringe IVFLUSH 3 ml QSHIFT EUSEBIO Administration Spironolactone 25 mg 11/25/20 09:00 11/26/20 08:42 Spironolactone 25 Mg Tablet PO 25 mg DAILY EUSEBIO Administration Protocol Time Spent With Patient Time: Total time spent is greater than 50% in coordination of care (as documented) at patient's floor/unit and/or counseling patient: Time with patient: 15 - 24 minutes
--- NOTE | 2020-11-26 14:45 | PM.PNNEP ---
Subjective Subjective Date of Service: 11/26/20 Principal diagnosis: Congestive heart failure Interval history: seen and examined comfortable no complaints Physical Exam Vital Signs: Vital Signs: Last Vital Signs Temp 98.3 F 11/26/20 11:41 Pulse 84 11/26/20 11:41 Resp 19 11/26/20 11:41 BP 106/84 11/26/20 11:41 Pulse Ox 99 11/26/20 11:41 Body Mass Index 22.5 Const: General: no acute distress HENMT: Head: Yes normocephalic and Yes atraumatic Neck: Neck: Yes supple Resp: Auscultation: diminished lung sounds Cardio: Heart sounds: S1 normal heart sound present and S2 normal heart sound present GI: Palpation (GI): Soft to palpation and nontender Extrem: General: No edema Objective Data Labs CBC & Chem 7: 11/25/20 05:55 11/26/20 06:02 Labs: Laboratory Results - last 24 hr 11/26/20 11/26/20 06:02 06:02 PT 60.5 H INR 5.0 H* Sodium 133 L Potassium 3.7 D Chloride 95 L Carbon Dioxide 23 Anion Gap 19 BUN 25 H Creatinine 0.97 Estim Creat Clear Calc 79.0 Estimated GFR > 60 Random Glucose 61 Calcium 7.8 L Magnesium 1.7 Microbiology Microbiology Results: Microbiology 11/19/20 11:05 Blood - Venous Blood Culture - Final No growth after 5 days. 11/19/20 10:58 Blood - Venous Blood Culture - Final No growth after 5 days. Assessment & Plan Assessment and plan (1) RUDY (acute kidney injury): Status: Acute (2) Right heart failure (secondary to left heart failure): Status: Acute (3) Pulmonary HTN: Status: Acute (4) Hyponatremia: Status: Acute (5) Anasarca: Status: Acute Assessment and Plan: kidney function normalized volume status improved 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 patient with severe mitral stenosis REC continue spironolactone will need oral diuretic follow kidney function and electrolytes Time Spent With Patient Time: Total time spent is greater than 50% in coordination of care (as documented) at patient's floor/unit and/or counseling patient:
--- NOTE | 2020-11-26 16:48 | P.PNIM_ITS ---
Subjective Subjective Date of Service: 11/26/20 Interval History: Patient being followed for generalize edema, patient feels swelling is better complaining of shortness of breath with activity, denies chest pain, no other acute overnight issues. Review of Systems General no headache ,no dizziness no fever chills. CVS no chest pain, no palpitation. Respiratory no respiratory distress, no cough. Gastrointestinal no nausea, no vomiting, no abdominal pain Physical Exam Vital Signs: Vital Signs: Last Vital Signs Temp 97.9 F 11/26/20 15:41 Pulse 81 11/26/20 15:41 Resp 18 11/26/20 15:41 BP 130/95 H 11/26/20 15:41 Pulse Ox 99 11/26/20 15:41 Body Mass Index 22.5 General no acute distress. Neck no JVD. CVS regular rate rhythm, Respiratory lungs clear to auscultation,no respiratory distress Gastrointestinal abdomen soft, nontender, bowel sounds audible Extremities generalized edema, both upper extremities, back, scrotum and face. Neuro nonfocal Skin no rash Psych impaired insight Objective Data Current Medications Generic Name Dose Route Start Last Admin Trade Name Freq PRN Reason Stop Dose Admin Ferrous Sulfate 324 mg 11/25/20 12:00 11/26/20 16:17 Ferrous Sulfate 324 Mg Tablet.Dr PO 324 mg TIDWM EUSEBIO Administration Guaifenesin 5 ml 11/20/20 10:44 11/21/20 00:01 Guaifenesin 100 Mg/5 Ml Liquid PO 5 ml Q6H PRN Administration Cough Levothyroxine Sodium 50 mcg 11/20/20 06:00 11/26/20 05:14 Levothyroxine Sodium 50 Mcg Tablet PO 50 mcg DAILY@0600 EUSEBIO Administration Potassium Chloride 40 meq 11/25/20 09:00 11/26/20 08:35 Potassium Chloride Er 20 Meq Tab.Er.Prt PO 40 meq BID EUSEBIO Administration Sodium Chloride 3 ml 11/20/20 00:00 11/26/20 16:17 0.9 % Sodium Chloride Flush 3 Ml Syringe IVFLUSH 3 ml QSHIFT EUSEBIO Administration Spironolactone 25 mg 11/25/20 09:00 11/26/20 08:42 Spironolactone 25 Mg Tablet PO 25 mg DAILY EUSEBIO Administration Protocol Labs CBC & Chem 7: 11/25/20 05:55 11/26/20 06:02 Microbiology Microbiology Results: Microbiology 11/19/20 11:05 Blood - Venous Blood Culture - Final No growth after 5 days. 11/19/20 10:58 Blood - Venous Blood Culture - Final No growth after 5 days. Assessment and Plan (1) Anasarca: Status: Acute (2) Hyponatremia: Status: Acute (3) Pulmonary HTN: Status: Acute (4) RUDY (acute kidney injury): Status: Acute (5) Acute on chronic right-sided congestive heart failure: Status: Acute (6) Acute pericardial effusion: Status: Acute (7) Pleural effusion: Status: Acute (8) Persistent atrial fibrillation: Status: Acute (9) Rheumatic mitral stenosis: Status: Acute Assessment and Plan: 60M presented with anasarca Acute on chronic right-sided congestive heart failure due to severe rheumatic mi tral stenosis complicated by acute kidney injury, oliguria, and pericardial effusion urine output and edema continue to improve, is greater than 6 L negative in last 5 days, patient Bumex drip was discontinued yesterday, patient is 600 mL negative in last 24, case discussed with Cardiology they recommend to resume Bumex 3 mg twice daily IV, continue by mouth Aldactone,will continue to follow BMP close Hypokalemia/hypomagnesemia due to diuresis improved, follow BMP while being diuresed. Acute kidney injury in the setting of decompensated right heart failure due to type 1 cardiorenal syndrome and severe mitral stenosis Renal function normalized, will follow BMP closely. Hypothermia resolved likely due to hypothyroidism. New onset hypothyroidism Continue Synthroid, follow TSH in 6 weeks afib with mitral stenosis On coumadin, INR remains elevated therefore will discontinue Coumadin follow PT INR closely. Stable ventricular rate.
[2020-11-26] MEDS: Bumetanide 1 MG/4 ML VIAL 3 MG IVPUSH (16:59)
[2020-11-27] MEDS: 0.9 % Sodium Chloride Flush 3 ML SYRINGE IVFLUSH ×3 (00:24→16:30)
[2020-11-27 03:09] VITALS: BP 98/51; PULSE 96; RESP 18; TEMP 36.3; O2SAT 100
[2020-11-27] MEDS: Levothyroxine Sodium 50 MCG TABLET PO (05:17)
[2020-11-27 05:28] VITALS: BMI 21.9
[2020-11-27 06:08] LABS: INTERNATIONAL NORM RATIO 3.4 (0.9-1.1); Prothrombin Time 41.1 SEC (10.8-13.0)
[2020-11-27 06:25] LABS: Magnesium 1.5 mg/dL (1.6-2.6)
[2020-11-27 06:47] LABS: Anion Gap 15 (12-20); Blood Urea Nitrogen 24 mg/dL (9-16); Calcium 8.1 mg/dL (8.4-10.2); Carbon Dioxide 26 mmol/L (22-29); Chloride 94 mmol/L (96-108); Creatinine Clr Calc Pharmacy 71.7; Estimated Glomerular Filt Rate > 60; Glucose Random 89 mg/dL (60-115); Potassium 4.2 mmol/l (3.3-5.1); Sodium 131 mmol/L (135-145)
[2020-11-27 07:41] VITALS: BP 102/68; PULSE 82; RESP 18; TEMP 36.6; O2SAT 97
[2020-11-27] MEDS: Potassium Chloride ER 20 MEQ TAB.ER.PRT 40 MEQ PO (08:44)
[2020-11-27] MEDS: Spironolactone 25 MG TABLET PO (08:44)
[2020-11-27] MEDS: Bumetanide 1 MG/4 ML VIAL 3 MG IVPUSH ×2 (08:44→16:30)
[2020-11-27] MEDS: Ferrous Sulfate 324 MG TABLET.DR PO ×3 (08:44→16:30)
--- NOTE | 2020-11-27 11:16 | P.PNCA_ITS ---
Subjective Subjective Date of Service: 11/27/20 Principal diagnosis: Congestive heart failure Interval history: He states that he still having swelling in his legs and shortness of breath. Not feeling back to his normal self as yet. Review of Systems Constitutional: Reports weakness Cardiovascular: Reports as per HPI, Denies chest pain, Denies chest pain at rest, Denies chest pain with activity, Denies syncope, Reports leg edema, Denies lightheadedness, Denies Loss of Consciousness, Denies radiating jaw, neck or arm pain, Reports dyspnea and Reports dyspnea on exertion Respiratory: Reports dyspnea and Reports dyspnea on exertion Reports confusion, Denies syncope and Reports weakness Psychiatric: Reports confusion Physical Exam Vital Signs: Last Vital Signs Temp 97.8 F 11/27/20 07:41 Pulse 82 11/27/20 07:41 Resp 18 11/27/20 07:41 BP 102/68 11/27/20 07:41 Pulse Ox 97 11/27/20 07:41 Body Mass Index 21.9 Const General: cooperative, comfortable, no acute distress and confusion Orientation/consciousness: patient oriented x3 and confusion HENAL Other: Unremarkable Neck Neck: Yes normal visual inspection Chest Chest palpation & inspection: normal inspection of the chest Resp Auscultation: clear to auscultation bilaterally, no crackles and no wheezes Cardio Jugular venous distension: no JVD Palpation: normal PMI Heart sounds: S1 normal heart sound present, S2 normal heart sound present, Gallop heart sound present, no murmurs and no rubs GI Palpation (GI): Soft to palpation Back/Spine/Pelvis Other: unremarkable Skin General skin exam: no rashes or lesions noted Neuro General: patient oriented x3 and confusion Extrem General: Yes edema (1+; hands and lower extremities. ) Psych Mental Status: mental status grossly normal Results Labs and Meds Result diagrams: 11/25/20 05:55 11/27/20 05:31 Lab results: Laboratory Results - last 24 hr 11/27/20 11/27/20 11/27/20 05:31 05:31 05:31 PT 41.1 H D INR 3.4 H Sodium 131 L Potassium 4.2 Chloride 94 L Carbon Dioxide 26 Anion Gap 15 BUN 24 H Creatinine 1.04 Estim Creat Clear Calc 71.7 Estimated GFR > 60 Random Glucose 89 D Calcium 8.1 L Magnesium 1.5 L Progress Note: A&P Assessment and plan (1) Rheumatic mitral stenosis: Status: Acute (2) Pulmonary hypertension: Status: Acute (3) Acute on chronic right heart failure: Status: Acute (4) Persistent atrial fibrillation: Status: Acute Assessment and Plan: He has advanced mitral stenosis, pulmonary hypertension with right heart failure. Due to severe psychiatric issues, he is not considered to be a candid ate for any cardiac interventions. Off Bumex drip. On IV Bumex 3mg bid. He is almost 10L -ve since the time of admission. Overall guarded prognosis. Fall Risk Details Current Medications: Current Medications Generic Name Dose Route Start Last Admin Trade Name Freq PRN Reason Stop Dose Admin Bumetanide 3 mg 11/26/20 17:00 11/27/20 08:44 Bumetanide 1 Mg/4 Ml Vial IVPUSH 3 mg BIDWM EUSEBIO Administration Protocol Ferrous Sulfate 324 mg 11/25/20 12:00 11/27/20 08:44 Ferrous Sulfate 324 Mg Tablet.Dr PO 324 mg TIDWM EUSEBIO Administration Guaifenesin 5 ml 11/20/20 10:44 11/21/20 00:01 Guaifenesin 100 Mg/5 Ml Liquid PO 5 ml Q6H PRN Administration Cough Levothyroxine Sodium 50 mcg 11/20/20 06:00 11/27/20 05:17 Levothyroxine Sodium 50 Mcg Tablet PO 50 mcg DAILY@0600 EUSEBIO Administration Potassium Chloride 40 meq 11/27/20 09:00 11/27/20 08:44 Potassium Chloride Er 20 Meq Tab.Er.Prt PO 40 meq DAILY EUSEBIO Administration Sodium Chloride 3 ml 11/20/20 00:00 11/27/20 08:43 0.9 % Sodium Chloride Flush 3 Ml Syringe IVFLUSH 3 ml QSHIFT EUSEBIO Administration Spironolactone 25 mg 11/25/20 09:00 11/27/20 08:44 Spironolactone 25 Mg Tablet PO 25 mg DAILY EUSEBIO Administration Protocol Time Spent With Patient Time: Total time spent is greater than 50% in coordination of care (as documented) at patient's floor/unit and/or counseling patient: Time with patient: less than 15 minutes
--- NOTE | 2020-11-27 11:23 | PM.PNNEP ---
Subjective Subjective Date of Service: 11/27/20 Principal diagnosis: Congestive heart failure Interval history: seen and examined discussed with medical attending looks comfortable Physical Exam Vital Signs: Vital Signs: Last Vital Signs Temp 97.8 F 11/27/20 07:41 Pulse 82 11/27/20 07:41 Resp 18 11/27/20 07:41 BP 102/68 11/27/20 07:41 Pulse Ox 97 11/27/20 07:41 Body Mass Index 21.9 Const: General: no acute distress HENMT: Head: Yes normocephalic and Yes atraumatic Neck: Neck: Yes JVD Resp: Auscultation: diminished lung sounds Cardio: Heart sounds: S1 normal heart sound present and S2 normal heart sound present GI: Palpation (GI): Soft to palpation and nontender Extrem: General: Yes edema Objective Data Labs CBC & Chem 7: 11/25/20 05:55 11/27/20 05:31 Labs: Laboratory Results - last 24 hr 11/27/20 11/27/20 11/27/20 05:31 05:31 05:31 PT 41.1 H D INR 3.4 H Sodium 131 L Potassium 4.2 Chloride 94 L Carbon Dioxide 26 Anion Gap 15 BUN 24 H Creatinine 1.04 Estim Creat Clear Calc 71.7 Estimated GFR > 60 Random Glucose 89 D Calcium 8.1 L Magnesium 1.5 L Microbiology Microbiology Results: Microbiology 11/19/20 11:05 Blood - Venous Blood Culture - Final No growth after 5 days. 11/19/20 10:58 Blood - Venous Blood Culture - Final No growth after 5 days. Assessment & Plan Assessment and plan (1) RUDY (acute kidney injury): Status: Acute (2) Right heart failure (secondary to left heart failure): Status: Acute (3) Pulmonary HTN: Status: Acute (4) Hyponatremia: Status: Acute (5) Anasarca: Status: Acute Assessment and Plan: 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 patient with severe mitral stenosis REC continue spironolactone agree with IV bumetanide will need maintenance oral diuretics follow kidney function and electrolytes Time Spent With Patient Time: Total time spent is greater than 50% in coordination of care (as documented) at patient's floor/unit and/or counseling patient:
[2020-11-27 12:00] VITALS: BP 133/79; PULSE 94; RESP 20; TEMP 36.6; O2SAT 99
--- NOTE | 2020-11-27 12:42 | PM.HEMONCCN ---
Subjective - Subjective Consult date: 11/27/20 Requesting Physician: Dr. Cantrell. Primary Care Provider: Unknown Physician Medical Summary: DIAGNOSIS: 1. ANEMIA. 2. THROMBOCYTOPENIA. HPI - Consult Narrative Narrative: Jose Ferris is a pleasant 60 year old gentleman, with history of right-sided congestive heart failure, presented to the hospital with anasarca, and is currently with worsening kidney function and low serum sodium. The patient has had multiple admissions recently with fluid overload, requiring administration of diuretic infusion. The patient denies any shortness of breath, but complains of worsening weakness. There are no report of fever, chills, chest pain, nausea, vomiting, or diarrhea. He was started on bumetanide drip with minimal urine output. CBC: WBC: 5.4. Serial hemoglobin from 11/19: 8.6. 7.9. 8.1. 7.9. 8.2. 8.4. Serial platelet count: 57. 48. 50. 42. 45. He had been noted to be hypothermic. He was recently diagnosed with hypothyroidism. TSH elevated at 22. Review of Systems - Constitutional Reports system reviewed and no additional complaints, except as documented, Reports fatigue, Reports lack of energy, Reports malaise, Reports weakness, Reports weight loss, Denies fever(s) - Eyes Reports system reviewed and no additional complaints, except as documented, Denies blurry vision - ENT Reports system reviewed and no additional complaints, except as documented - Cardiovascular Reports system reviewed and no additional complaints, except as documented, Denies chest pain at rest - Respiratory Reports no additional respiratory complaints, Denies chest congestion - Gastrointestinal Reports system reviewed and no additional complaints, except as documented, Denies abdominal pain, Denies change in bowel habits - Genitourinary Genitourinary: Reports no additional male genitourinary complaints, Denies blood in urine - Musculoskeletal Reports system reviewed and no additional complaints, except as documented, Denies back pain - Integumentary/Breasts Skin/Breast: Reports no additional skin complaints, Denies bleeding lesions - Neurologic Reports confusion, Reports weakness, Denies syncope - Psychiatric Reports system reviewed and no additional complaints, except as documented - Endocrine Reports no additional endocrine complaints, Denies cold intolerance - Hematologic/Lymphatic Reports system reviewed and no additional complaints, except as documented, Reports easy bruising - Allergic/Immunologic Reports system reviewed and no additional complaints, except as documented PMFSH Medical History: Medical History (Last Updated 12/03/20 @ 10:36 by Mehdi Ortega MD) Acute retention of urine Afib CHF (congestive heart failure) Hepatic encephalopathy Persistent atrial fibrillation Quit consuming alcohol in remote past Schizophrenia Severe mitral valve stenosis Traumatic brain injury Functional capacity: wheelchair bound Patient : No Family History: Family History (Last Reviewed 11/20/20 @ 12:14 by Kobe Melo MD) Father No problems noted. Mother HTN (hypertension) Smoking status: Current some day smoker Home Medications and Allergies Current Medications: Current Medications Generic Name Dose Route Start Last Admin Trade Name Freq PRN Reason Stop Dose Admin Bumetanide 3 mg 11/26/20 17:00 11/27/20 08:44 Bumetanide 1 Mg/4 Ml Vial IVPUSH 3 mg BIDWM EUSEBIO Administration Protocol Ferrous Sulfate 324 mg 11/25/20 12:00 11/27/20 12:20 Ferrous Sulfate 324 Mg Tablet.Dr PO 324 mg TIDWM EUSEBIO Administration Guaifenesin 5 ml 11/20/20 10:44 11/21/20 00:01 Guaifenesin 100 Mg/5 Ml Liquid PO 5 ml Q6H PRN Administration Cough Levothyroxine Sodium 50 mcg 11/20/20 06:00 11/27/20 05:17 Levothyroxine Sodium 50 Mcg Tablet PO 50 mcg DAILY@0600 EUSEBIO Administration Potassium Chloride 40 meq 11/27/20 09:00 11/27/20 08:44 Potassium Chloride Er 20 Meq Tab.Er.Prt PO 40 meq DAILY EUSEBIO Administration Sodium Chloride 3 ml 11/20/20 00:00 11/27/20 08:43 0.9 % Sodium Chloride Flush 3 Ml Syringe IVFLUSH 3 ml QSHIFT EUSEBIO Administration Spironolactone 25 mg 11/25/20 09:00 11/27/20 08:44 Spironolactone 25 Mg Tablet PO 25 mg DAILY EUSEBIO Administration Protocol Home Medications Medication Instructions Recorded Confirmed Type digoxin [Digitek] 125 mcg PO DAILY 09/12/20 11/19/20 History omeprazole 40 mg PO DAILY 09/12/20 11/19/20 History risperidone 2 mg PO BID 09/12/20 11/19/20 History clotrimazole 1 appl TOPICAL BID 11/04/20 11/19/20 History warfarin 7.5 mg PO DAILY 11/20/20 11/20/20 History Allergies Allergy/AdvReac Type Severity Reaction Status Date / Time Fish Containing Products Allergy Unknown UNKNOWN Verified 09/12/20 07:09 PEPPERS, JALAPENO Allergy Unknown UNKNOWN Uncoded 09/12/20 07:09 Physical Exam Vital signs: Vital Signs Temp 97.9 F 11/27/20 12:00 Pulse 94 11/27/20 12:00 Resp 20 11/27/20 12:00 BP 133/79 11/27/20 12:00 Pulse Ox 99 11/27/20 12:00 Intake & Output 11/26/20 11/27/20 11/27/20 18:59 06:59 18:59 Intake Total 600 / 960 360 / 960 220 / 220 Output Total 400 / 1400 1000 / 1400 Balance 200 / -440 -640 / -440 220 / 220 Urine Output (Average ml/kg/hr) 0.50 1.27 1.27 Intake: Intake, Oral Amount 600 / 960 360 / 960 220 / 220 Output: Output, Urine Amount (Catheter) 400 / 1400 1000 / 1400 CAMACHO 400 / 1400 1000 / 1400 Other: Breakfast % Eaten 100% Number of Incontinent Voids 1 Number of Bowel Movements 1 Last Bowel Movement 11/27/20 Stool Bedpan Stool Amount Moderate Stool Color Brown Stool Consistency Soft Weight 65.5 kg Weight 65.5 kg - Constitutional Present: moderate distress - Routine HEENT Exam Head: Present: normal inspection ENT: Present: mucous membranes moist - Routine Neck Exam Present: supple - Routine Respiratory Exam Present: decreased breath sounds, CTAB - Routine Cardiovascular Exam Cardiovascular: Present: RRR, S1, S2 - Routine Abdominal Exam Present: soft, nontender - Routine Rectal Exam Patient deferred: digital exam - Routine Extremities Exam Present: pedal edema, nontender - Detailed Neurological Exam: Coma Scale Eye Opening: Spontaneous (4) Verbal Response: Oriented (5) Motor Response: Obeys commands (6) [place] Coma Scale Total: 15 - Routine Psychiatric Exam Present: depressed Hem/Onc Consult Result - Labs CBC & Chem 7: 12/01/20 06:01 12/03/20 05:43 Labs: BMP 11/27/20 05:31 Sodium 131 L Potassium 4.2 Chloride 94 L Carbon Dioxide 26 BUN 24 H Creatinine 1.04 Calcium 8.1 L Assessment and Plan (1) Thrombocytopenia Status: Deleted This is an unfortunate 60-year-old gentleman who presented with anasarca was noted to have right-sided heart failure. He actually has acute on chronic right-sided congestive heart failure due to severe rheumatic mitral stenosis. He had hyponatremia and oliguric renal insufficiency. Hypokalemia and hypo magnesemia, due to diuresis. He has been managed for that. In addition he has been noted to be anemic and has had falling platelet count. Serial hemoglobin from 11/19: 8.6. 7.9. 8.1. 7.9. 8.2. 8.4. Serial platelet count: 57. 48. 50. 42. 45. Differential diagnosis: 1. Medication related: 2. Hemolytic anemia: Could be microangiopathic. 3. DIC: 4. Underlying myelo infiltrative disorder: MDS versus multiple myeloma. PLAN: Will proceed with further evaluation. Check peripheral smear: Hypochromic microcytic anemia, with marked variation in red cell shape & size. Atypical forms: numerous targets, with admixed echinocytes & elliptocytes, RBC fragments. Check hemolytic screen: retic 2, Hapto 24. Check DIC screen:PT 41, INR 3.4, Fibrinogen 440. Ddimer 947. Check LDH and SIEP. Will monitor his blood count carefully. Transfuse packed RBC if hemoglobin falls below 8. Transfuse platelets if platelets fall to 15 or below, or for bleeding. Thank you for the consult,
--- NOTE | 2020-11-27 13:03 | MHC.HEMONC ---
Chemistry called for not enough serum for add-on labs. Dr Nelson notified.
[2020-11-27 13:32] LABS: Lactate Dehydrogenase 445 U/L (118-273)
[2020-11-27 13:40] LABS: Hematocrit 25.9 % (42-52); IG%MD 0.3 %
[2020-11-27 13:42] LABS: Rheumatoid Factor < 15.0 IU/mL (<15.0)
[2020-11-27 13:42] LABS: Baso%MD 0.1 %; Eos%MD 10.2 %; Hemoglobin 8.6 g/dl (14.0-18.0); Immature Retic Fraction 22.4 % (2.3-13.4); Mean Corpuscular HGB Conc 33.2 g/dl (31.0-36.0); Mean Corpuscular Hemoglobin 20.3 pg (27.0-33.0); Mono%MD 15.4 %; Red Blood Count 4.23 X10*6/uL (4.60-5.80); Red Cell Distribution Width 21.9 % (11.0-16.0); Reticulocytes Absolute 0.083 X10*6/uL (0.026-0.095); White Blood Count 7.7 X10*3/uL (4.8-10.8)
[2020-11-27 13:46] LABS: Mean Corpuscular Volume 61.2 fL (80-98); NRBC Pct Auto 1.8 /100WBC (0.0-0.2); PLT ABN DIST 1; Platelet Count 49 X10*3/uL (160-400)
[2020-11-27 13:48] LABS: Fibrinogen 440 MG/DL (259-690)
[2020-11-27 13:51] LABS: D Dimer 947 NG/ML
[2020-11-27 14:08] LABS: Basophils Abs Manual 0.2 X10*3/uL (0.0-0.3); Basophils Percent Manual 3 % (0-1); Eosinophils Absolute Manual 0.5 X10*3/UL (0.0-0.8); Eosinophils Percent Manual 7 % (0-4); Lymphocytes Absolute Manual 0.5 X10*3/uL (0.6-4.8); Lymphocytes Percent Manual 6 % (20-40); Monocytes Absolute Manual 0.4 X10*3/uL (0.0-1.2); Monocytes Percent Manual 5 % (2-11); Neutrophils Percent Manual 79 % (45-73); Nucleated Red Blood Cells 5 /100WBC (0-0)
[2020-11-27 14:09] LABS: Band Neutrophils Percent 0 % (3-5); Neutrophils Absolute Manual 6.1 X10*3/uL (2.2-7.9); RBC Morphology NOTED; Target Cells 2+
[2020-11-27 14:10] LABS: Acanthocytes 1+; Hypochromasia 1+; Ovalocytes 1+; Schistocytes 1+
[2020-11-27 14:12] LABS: Large Platelet PRESENT; Platelet Estimate DECREASED (NORMAL); Platelet Morphology Comment NOTED; Polychromasia 1+
[2020-11-27 14:28] LABS: Erythrocyte Sedimentation Rate 14 MM/HR (0-15)
--- NOTE | 2020-11-27 15:33 | P.PNIM_ITS ---
Subjective Subjective Date of Service: 11/27/20 Interval History: Patient being followed for generalized edema, patient complaining of persistent swelling, complaining of bilateral arm discomfort, denies shortness of breath , has difficulty walking due to generalized edema. Review of Systems General no headache, no dizziness, no fever chills. CVS no chest pain, no palpitation. Respiratory no respiratory distress. Gastrointestinal no nausea no vomiting, no abdominal pain Physical Exam Vital Signs: Vital Signs: Last Vital Signs Temp 97.9 F 11/27/20 12:00 Pulse 94 11/27/20 12:00 Resp 20 11/27/20 12:00 BP 133/79 11/27/20 12:00 Pulse Ox 99 11/27/20 12:00 Body Mass Index 21.9 General no acute distress. Neck is supple no JVD. CVS irregular, Respiratory lungs clear to auscultation, no respiratory distress Gastrointestinal abdomen soft, nontender, bowel sounds audible Extremities generalized edema both upper extremities lower extremities, depend ent area of back, scrotum Neuro nonfocal Psychiatry poor insight Objective Data Current Medications Generic Name Dose Route Start Last Admin Trade Name Freq PRN Reason Stop Dose Admin Bumetanide 3 mg 11/26/20 17:00 11/27/20 08:44 Bumetanide 1 Mg/4 Ml Vial IVPUSH 3 mg BIDWM EUSEBIO Administration Protocol Ferrous Sulfate 324 mg 11/25/20 12:00 11/27/20 12:20 Ferrous Sulfate 324 Mg Tablet.Dr PO 324 mg TIDWM EUSEBIO Administration Guaifenesin 5 ml 11/20/20 10:44 11/21/20 00:01 Guaifenesin 100 Mg/5 Ml Liquid PO 5 ml Q6H PRN Administration Cough Levothyroxine Sodium 50 mcg 11/20/20 06:00 11/27/20 05:17 Levothyroxine Sodium 50 Mcg Tablet PO 50 mcg DAILY@0600 EUSEBIO Administration Potassium Chloride 40 meq 11/27/20 09:00 11/27/20 08:44 Potassium Chloride Er 20 Meq Tab.Er.Prt PO 40 meq DAILY EUSEBIO Administration Sodium Chloride 3 ml 11/20/20 00:00 11/27/20 08:43 0.9 % Sodium Chloride Flush 3 Ml Syringe IVFLUSH 3 ml QSHIFT EUSEBIO Administration Spironolactone 25 mg 11/25/20 09:00 11/27/20 08:44 Spironolactone 25 Mg Tablet PO 25 mg DAILY EUSEBIO Administration Protocol Labs CBC & Chem 7: 11/27/20 13:15 11/27/20 05:31 Microbiology Microbiology Results: Microbiology 11/19/20 11:05 Blood - Venous Blood Culture - Final No growth after 5 days. 11/19/20 10:58 Blood - Venous Blood Culture - Final No growth after 5 days. Assessment and Plan (1) Thrombocytopenia: Status: Acute (2) Anasarca: Status: Acute (3) Hyponatremia: Status: Acute (4) Pulmonary HTN: Status: Acute (5) RUDY (acute kidney injury): Status: Acute (6) Acute on chronic right-sided congestive heart failure: Status: Acute (7) Hypothermia: Status: Acute (8) Acute pericardial effusion: Status: Acute (9) Persistent atrial fibrillation: Status: Acute (10) Pulmonary hypertension: Status: Acute (11) Rheumatic mitral stenosis: Status: Acute Assessment and Plan: 60M presented with anasarca Acute on chronic right-sided congestive heart failure due to severe rheumatic mitral stenosis complicated by acute kidney injury, oliguria, and pericardial effusion urine output and edema continue to improve, is greater than 10 L negative, maynor ent Bumex drip was discontinued now on Bumex 3 mg twice daily IV, and Aldactone, less urinary output in last 24 hours Will discuss additional diuretics with Cardiology will continue to follow BMP closely. Encourage out of bed to chair. Hypokalemia/hypomagnesemia due to diuresis improved, follow BMP while being diuresed. Potassium trending up will reduce dose of potassium Acute kidney injury in the setting of decompensated right heart failure due to type 1 cardiorenal syndrome and severe mitral stenosis Renal function normalized, will follow BMP closely. Being followed by Nephrology they recommend to continue diuresis Hypothermia resolved likely due to hypothyroidism. New onset hypothyroidism Continue Synthroid, follow TSH in 6 weeks afib with mitral stenosis On coumadin, INR remains elevated therefore will discontinue Coumadin follow PT INR closely. Stable ventricular rate. Thrombocytopenia, anemia will consult Hematology due to new on stat thrombocytopenia.
[2020-11-27 15:39] VITALS: BP 100/62; PULSE 107; RESP 18; TEMP 36.6; O2SAT 99
--- NOTE | 2020-11-27 16:05 | MHC.CM.PN ---
cm will eloy nue to fllow no dc date at this time
[2020-11-27 20:00] VITALS: BP 104/65; PULSE 53; RESP 18; TEMP 36.9; O2SAT 99
[2020-11-27 23:31] VITALS: BP 103/52; PULSE 61; RESP 18; TEMP 36.5; O2SAT 100
[2020-11-28] MEDS: 0.9 % Sodium Chloride Flush 3 ML SYRINGE IVFLUSH ×4 (00:04→19:58)
[2020-11-28 03:42] VITALS: BP 97/51; PULSE 84; RESP 20; TEMP 36.4; O2SAT 100
[2020-11-28] MEDS: Levothyroxine Sodium 50 MCG TABLET PO (05:04)
[2020-11-28 05:05] LABS: HIV AB/AG Nonreactive (Nonreactive); HIV Num 1 0.17 S/CO (0.00-0.99)
[2020-11-28 05:52] VITALS: BMI 22.2
[2020-11-28 07:04] LABS: INTERNATIONAL NORM RATIO 2.9 (0.9-1.1); Prothrombin Time 34.7 SEC (10.8-13.0)
[2020-11-28 07:06] LABS: Anion Gap 15 (12-20); Blood Urea Nitrogen 22 mg/dL (9-16); Calcium 8.1 mg/dL (8.4-10.2); Carbon Dioxide 25 mmol/L (22-29); Chloride 94 mmol/L (96-108); Creatinine Clr Calc Pharmacy 81.1; Estimated Glomerular Filt Rate > 60; Glucose Random 75 mg/dL (60-115); Potassium 3.8 mmol/l (3.3-5.1); Sodium 130 mmol/L (135-145)
[2020-11-28 07:07] LABS: Basophils Percent Auto 0.4 % (0-2); Hemoglobin 8.5 g/dl (14.0-18.0)
[2020-11-28 07:09] LABS: Eosinophils Absolute Auto 0.8 X10*3/uL (0.0-0.4); Eosinophils Percent Auto 10.3 % (0-4); Hematocrit 25.3 % (42-52); Imm Gran Abs Auto 0.03 X10*3/uL (0.00-0.03); Imm Gran Pct Auto 0.4 % (0.0-0.4); Lymphocytes Absolute Auto 0.8 X10*3/uL (1.2-4.9); Lymphocytes Percent Auto 10.5 % (20-40); Mean Corpuscular HGB Conc 33.6 g/dl (31.0-36.0); Mean Corpuscular Hemoglobin 20.2 pg (27.0-33.0); Monocytes Absolute Auto 1.3 X10*3/uL (0.1-1.2); Monocytes Percent Auto 16.2 % (2-11); Neutrophils Absolute Auto 4.9 X10*3/uL (2.0-8.3); Neutrophils Percent Auto 62.2 % (45-73); Red Cell Distribution Width 21.6 % (11.0-16.0); White Blood Count 7.8 X10*3/uL (4.8-10.8)
[2020-11-28 07:11] LABS: Mean Corpuscular Volume 60.2 fL (80-98); Platelet Count 58 X10*3/uL (160-400)
[2020-11-28 07:53] VITALS: BP 100/56; PULSE 86; RESP 18; TEMP 36.4; O2SAT 97
[2020-11-28] MEDS: Ferrous Sulfate 324 MG TABLET.DR PO ×3 (09:53→18:51)
[2020-11-28] MEDS: Potassium Chloride ER 20 MEQ TAB.ER.PRT 40 MEQ PO (09:53)
[2020-11-28] MEDS: Bumetanide 1 MG/4 ML VIAL 3 MG IVPUSH ×2 (09:53→18:51)
[2020-11-28] MEDS: Spironolactone 25 MG TABLET PO (09:53)
--- NOTE | 2020-11-28 10:27 | PM.PNCARD ---
Subjective Subjective Date of Service: 11/28/20 Principal diagnosis: Congestive heart failure Interval history: Still having swelling in his legs and shortness of breath. Not feeling back to his normal self as yet. Review of Systems Review of Systems Yes all other systems are reviewed and are negative Cardiovascular: Reports as per HPI, Reports no additional cardiovascular complaints, Denies chest pain, Denies chest pain at rest, Denies chest pain with activity, Reports pedal edema, Reports edema, Reports leg edema, Reports dyspnea, Reports dyspnea on exertion and Reports orthopnea Respiratory: Reports dyspnea and Reports dyspnea on exertion Physical Exam Vital Signs: Last Vital Signs Temp 97.6 F 11/28/20 07:53 Pulse 86 11/28/20 07:53 Resp 18 11/28/20 07:53 BP 100/56 L 11/28/20 07:53 Pulse Ox 97 11/28/20 07:53 Body Mass Index 22.2 Const General: cooperative, comfortable and no acute distress Orientation/consciousness: patient oriented x3 HENAK Other: Unremarkable Neck Neck: Yes normal visual inspection Chest Chest palpation & inspection: normal inspection of the chest Resp Auscultation: clear to auscultation bilaterally, no crackles and no wheezes Cardio Jugular venous distension: no JVD Palpation: normal PMI Heart sounds: S1 normal heart sound present, S2 normal heart sound present, Gallop heart sound present, no murmurs and no rubs GI Palpation (GI): Soft to palpation Back/Spine/Pelvis Other: unremarkable Skin General skin exam: no rashes or lesions noted Neuro General: patient oriented x3 Extrem General: Yes edema (1+; hands and lower extremities. ) Psych Mental Status: mental status grossly normal Results Labs and Meds Result diagrams: 11/28/20 05:45 11/28/20 05:45 Lab results: Laboratory Results - last 24 hr 11/27/20 11/27/20 11/27/20 05:31 06:11 13:01 WBC RBC Hgb Hct MCV MCH MCHC RDW Plt Count MPV Immature Gran % (Auto) Neut % (Auto) Lymph % (Auto) [place] % (Auto) Eos % (Auto) Baso % (Auto) Lymph # (Auto) [place] # (Auto) Eos # (Auto) Baso # (Auto) Abs Immat Gran (auto) Absolute Neuts (auto) Absolute Nucleated RBC Nucleated RBC % (auto) Neutrophils % (Manual) Band Neutrophils % Lymphocytes % (Manual) Monocytes % (Manual) Eosinophils % (Manual) Basophils % (Manual) Abs Neuts (Manual) Lymphocytes # (Manual) Monocytes # (Manual) Eosinophils # (Manual) Basophils # (Manual) Nucleated RBCs Platelet Estimate Large Platelets Plt Morphology Comment RBC Morphology Polychromasia Hypochromasia Target Cells Ovalocytes Acanthocytes (Spur) Schistocytes Smear Path Review ESR Absolute Retic Percent Retic Immature Retic Fraction Retic Hgb Equivalent PT INR Fibrinogen 440 D-Dimer 947 Sodium Potassium Chloride Carbon Dioxide Anion Gap BUN Creatinine Estim Creat Clear Calc Estimated GFR Random Glucose Calcium Lactate Dehydrogenase 445 H Rheumatoid Factor < 15.0 HIV 1&2 Ab/P24 Ag 4thGn Nonreactive Blood Type Antibody Screen 11/27/20 11/27/20 11/27/20 13:15 13:15 13:15 WBC 7.7 RBC 4.23 L Hgb 8.6 L Hct 25.9 L MCV 61.2 L MCH 20.3 L MCHC 33.2 RDW 21.9 H Plt Count 49 L MPV Not Reportable Immature Gran % (Auto) Neut % (Auto) Lymph % (Auto) [place] % (Auto) Eos % (Auto) Baso % (Auto) Lymph # (Auto) [place] # (Auto) Eos # (Auto) Baso # (Auto) Abs Immat Gran (auto) Absolute Neuts (auto) Absolute Nucleated RBC 0.140 H Nucleated RBC % (auto) 1.8 H Neutrophils % (Manual) 79 H Band Neutrophils % 0 L Lymphocytes % (Manual) 6 L Monocytes % (Manual) 5 Eosinophils % (Manual) 7 H Basophils % (Manual) 3 H Abs Neuts (Manual) 6.1 Lymphocytes # (Manual) 0.5 L Monocytes # (Manual) 0.4 Eosinophils # (Manual) 0.5 Basophils # (Manual) 0.2 Nucleated RBCs 5 H Platelet Estimate DECREASED Large Platelets PRESENT Plt Morphology Comment NOTED RBC Morphology NOTED Polychromasia 1+ Hypochromasia 1+ Target Cells 2+ Ovalocytes 1+ Acanthocytes (Spur) 1+ Schistocytes 1+ Smear Path Review SEE NOTE ESR 14 Absolute Retic 0.083 Percent Retic 2.0 H Immature Retic Fraction 22.4 H Retic Hgb Equivalent 22.0 L PT INR Fibrinogen D-Dimer Sodium Potassium Chloride Carbon Dioxide Anion Gap BUN Creatinine Estim Creat Clear Calc Estimated GFR Random Glucose Calcium Lactate Dehydrogenase Rheumatoid Factor HIV 1&2 Ab/P24 Ag 4thGn Blood Type B Positive Antibody Screen NEGATIVE 11/28/20 11/28/20 11/28/20 05:45 05:45 05:45 WBC 7.8 RBC 4.20 L Hgb 8.5 L Hct 25.3 L MCV 60.2 L MCH 20.2 L MCHC 33.6 RDW 21.6 H Plt Count 58 L MPV Not Reportable Immature Gran % (Auto) 0.4 Neut % (Auto) 62.2 Lymph % (Auto) 10.5 L [place] % (Auto) 16.2 H Eos % (Auto) 10.3 H Baso % (Auto) 0.4 Lymph # (Auto) 0.8 L [place] # (Auto) 1.3 H Eos # (Auto) 0.8 H Baso # (Auto) 0.0 Abs Immat Gran (auto) 0.03 Absolute Neuts (auto) 4.9 Absolute Nucleated RBC 0.160 H Nucleated RBC % (auto) 2.0 H Neutrophils % (Manual) Band Neutrophils % Lymphocytes % (Manual) Monocytes % (Manual) Eosinophils % (Manual) Basophils % (Manual) Abs Neuts (Manual) Lymphocytes # (Manual) Monocytes # (Manual) Eosinophils # (Manual) Basophils # (Manual) Nucleated RBCs Platelet Estimate Large Platelets Plt Morphology Comment RBC Morphology Polychromasia Hypochromasia Target Cells Ovalocytes Acanthocytes (Spur) Schistocytes Smear Path Review ESR Absolute Retic Percent Retic Immature Retic Fraction Retic Hgb Equivalent PT 34.7 H INR 2.9 H Fibrinogen D-Dimer Sodium 130 L Potassium 3.8 Chloride 94 L Carbon Dioxide 25 Anion Gap 15 BUN 22 H Creatinine 0.93 Estim Creat Clear Calc 81.1 Estimated GFR > 60 Random Glucose 75 Calcium 8.1 L Lactate Dehydrogenase Rheumatoid Factor HIV 1&2 Ab/P24 Ag 4thGn Blood Type Antibody Screen Progress Note: A&P Assessment and plan (1) Rheumatic mitral stenosis: Status: Acute (2) Pulmonary hypertension: Status: Acute (3) Acute on chronic right heart failure: Status: Acute (4) Persistent atrial fibrillation: Status: Acute Assessment and Plan: He has advanced mitral stenosis, pulmonary hypertension with right heart failure. Due to severe psychiatric issues, he is not considered to be a candidate for any cardiac interventions. Off Bumex drip. On IV Bumex 3mg bid. Add Metolazone 5mg PO. He is 9-10L -ve since the time of admission. On telemetry, he is in atrial fibrillation with a ventricular rate of about 100/Min. Overall guarded prognosis. Fall Risk Details Current Medications: Current Medications Generic Name Dose Route Start Last Admin Trade Name Freq PRN Reason Stop Dose Admin Bumetanide 3 mg 11/26/20 17:00 11/28/20 09:53 Bumetanide 1 Mg/4 Ml Vial IVPUSH 3 mg BIDWM [facility] Administration Protocol Ferrous Sulfate 324 mg 11/25/20 12:00 11/28/20 09:53 Ferrous Sulfate 324 Mg Tablet.Dr PO 324 mg TIDWM [facility] Administration Guaifenesin 5 ml 11/20/20 10:44 11/21/20 00:01 Guaifenesin 100 Mg/5 Ml Liquid PO 5 ml Q6H PRN Administration Cough Levothyroxine Sodium 50 mcg 11/20/20 06:00 11/28/20 05:04 Levothyroxine Sodium 50 Mcg Tablet PO 50 mcg DAILY@0600 [facility] Administration Potassium Chloride 40 meq 11/27/20 09:00 11/28/20 09:53 Potassium Chloride Er 20 Meq Tab.Er.Prt PO 40 meq DAILY [facility] Administration Sodium Chloride 3 ml 11/20/20 00:00 11/28/20 09:53 0.9 % Sodium Chloride Flush 3 Ml Syringe IVFLUSH 3 ml QSHIFT [facility] Administration Spironolactone 25 mg 11/25/20 09:00 11/28/20 09:53 Spironolactone 25 Mg Tablet PO 25 mg DAILY [facility] Administration Protocol Time Spent With Patient Time: Total time spent is greater than 50% in coordination of care (as documented) at patient's floor/unit and/or counseling patient: Time with patient: less than 15 minutes
[2020-11-28 11:36] VITALS: PULSE 82; RESP 20; TEMP 36.4; O2SAT 97
--- NOTE | 2020-11-28 12:39 | P.PNIM_ITS ---
Subjective Subjective Date of Service: 11/28/20 Interval History: Patient being followed for generalized edema, complaining of foot pain, asking when he will be discharged home, no other acute issues overnight. Review of Systems Review of Systems General no headache, no dizziness, no fever chills. CVS no chest pain, no palpitation. Respiratory sob, no cough,sob. Gastrointestinal no nausea no vomiting, no abdominal pain EXtremities foot pain/knee pain Physical Exam Vital Signs: Vital Signs: Last Vital Signs Temp 97.6 F 11/28/20 11:36 Pulse 82 11/28/20 11:36 Resp 20 11/28/20 11:36 BP 100/56 L 11/28/20 07:53 Pulse Ox 97 11/28/20 11:36 Body Mass Index 22.2 General no acute distress. Neck is supple no JVD. CVS irregular, Respiratory lungs clear to auscultation, no respiratory distress Gastrointestinal abdomen soft, nontender, bowel sounds audible Extremities generalized edema both upper extremities lower extremities, dependent area of back, scrotum unchanged since yesterday Neuro nonfocal Psychiatry poor insight Objective Data Current Medications Generic Name Dose Route Start Last Admin Trade Name Freq PRN Reason Stop Dose Admin Bumetanide 3 mg 11/26/20 17:00 11/28/20 09:53 Bumetanide 1 Mg/4 Ml Vial IVPUSH 3 mg BIDWM [facility] Administration Protocol Ferrous Sulfate 324 mg 11/25/20 12:00 11/28/20 09:53 Ferrous Sulfate 324 Mg Tablet. PO 324 mg TIDWM [facility] Administration Guaifenesin 5 ml 11/20/20 10:44 11/21/20 00:01 Guaifenesin 100 Mg/5 Ml Liquid PO 5 ml Q6H PRN Administration Cough Magnesium Sulfate 2 gm in 50 mls @ 25 mls/hr 11/28/20 12:34 IV 11/28/20 14:33 ONCE ONE Levothyroxine Sodium 50 mcg 11/20/20 06:00 11/28/20 05:04 Levothyroxine Sodium 50 Mcg Tablet PO 50 mcg DAILY@0600 [facility] Administration Magnesium Oxide 400 mg 11/28/20 17:30 Magnesium Oxide 400 Mg Tablet PO BIDPC [facility] Metolazone 5 mg 11/28/20 12:45 Metolazone 5 Mg Tablet PO QAM [facility] Potassium Chloride 40 meq 11/27/20 09:00 11/28/20 09:53 Potassium Chloride Er 20 Meq Tab.Er.Prt PO 40 meq DAILY [facility] Administration Sodium Chloride 3 ml 11/20/20 00:00 11/28/20 09:53 0.9 % Sodium Chloride Flush 3 Ml Syringe IVFLUSH 3 ml QSHIFT [facility] Administration Spironolactone 25 mg 11/25/20 09:00 11/28/20 09:53 Spironolactone 25 Mg Tablet PO 25 mg DAILY [facility]SE[facility] Administration Protocol Labs CBC & Chem 7: 11/28/20 05:45 11/28/20 05:45 Microbiology Microbiology Results: Microbiology 11/19/20 11:05 Blood - Venous Blood Culture - Final No growth after 5 days. 11/19/20 10:58 Blood - Venous Blood Culture - Final No growth after 5 days. Assessment and Plan (1) Thrombocytopenia: Status: Acute (2) Anasarca: Status: Acute (3) Hyponatremia: Status: Acute (4) Pulmonary HTN: Status: Acute (5) RUDY (acute kidney injury): Status: Acute (6) Acute on chronic right-sided congestive heart failure: Status: Acute (7) Acute pericardial effusion: Status: Acute (8) Pleural effusion: Status: Acute (9) Persistent atrial fibrillation: Status: Acute (10) Rheumatic mitral stenosis: Status: Acute Assessment and Plan: 60M presented with anasarca Acute on chronic right-sided congestive heart failure due to severe rheumatic mitral stenosis complicated by acute kidney injury, oliguria, and pericardial effusion urine output and edema continue to improve slowly, is greater than 10 L negativ e, patient Bumex drip was discontinued now on Bumex 3 mg twice daily IV, and Aldactone, less urinary output in last 24 hours case discussed with Cardiology will add metolazone 5 mg by mouth daily in addition to Bumex and Aldactone follow electrolytes closely Encourage out of bed to chair. Hypokalemia/hypomagnesemia due to diuresis improved, magnesium borderline low will replace follow BMP closely while being diuresed. Acute kidney injury in the setting of decompensated right heart failure due to type 1 cardiorenal syndrome and severe mitral stenosis Renal function normalized, will follow BMP closely. Being followed by Nephrology they recommend to continue diuresis Hypothermia resolved likely due to hypothyroidism. New onset hypothyroidism Continue Synthroid, follow TSH in 6 weeks afib with mitral stenosis On coumadin, INR remains elevated therefore will discontinue Coumadin follow PT INR closely. Stable ventricular rate. Thrombocytopenia, and anemia hematocrit and platelet remains low but stable further workup ordered by Dr. Nelson will follow labs closely.
[2020-11-28 13:53] LABS: Anion Gap 14 (12-20); Blood Urea Nitrogen 21 mg/dL (9-16); Calcium 8.2 mg/dL (8.4-10.2); Carbon Dioxide 28 mmol/L (22-29); Chloride 93 mmol/L (96-108); Creatinine Clr Calc Pharmacy 82.9; Estimated Glomerular Filt Rate > 60; Glucose Random 76 mg/dL (60-115); Sodium 131 mmol/L (135-145)
[2020-11-28] MEDS: Magnesium Sulfate/H2O 2 GM/50 ML PIGGYBACK IV (14:08)
--- NOTE | 2020-11-28 15:26 | P.PNNP_ITS ---
Subjective Subjective Date of Service: 11/28/20 Principal diagnosis: Congestive heart failure Interval history: Events noted Physical Exam Vital Signs: Vital Signs: Last Vital Signs Temp 97.6 F 11/28/20 11:36 Pulse 82 11/28/20 11:36 Resp 20 11/28/20 11:36 BP 100/56 L 11/28/20 07:53 Pulse Ox 97 11/28/20 11:36 Body Mass Index 22.2 Const: General: cooperative Orientation/consciousness: oriented to person Eyes: General: appearance normal, both eyes and all related structures Neck: Neck: Yes no JVD Resp: Auscultation: diminished lung sounds Cardio: Jugular venous distension: no JVD Heart sounds: no rubs GI: Inspection: Yes normal to inspection Auscultation: normal bowel sounds Neuro: General: oriented to person Motor exam (neuro): no asterixis Objective Data Labs CBC & Chem 7: 11/28/20 05:45 11/28/20 13:06 Labs: Laboratory Results - last 24 hr 11/27/20 11/27/20 11/28/20 06:11 13:15 05:45 WBC RBC Hgb Hct MCV MCH MCHC RDW Plt Count MPV Immature Gran % (Auto) Neut % (Auto) Lymph % (Auto) [place] % (Auto) Eos % (Auto) Baso % (Auto) Lymph # (Auto) [place] # (Auto) Eos # (Auto) Baso # (Auto) Abs Immat Gran (auto) Absolute Neuts (auto) Absolute Nucleated RBC Nucleated RBC % (auto) Smear Path Review SEE NOTE PT 34.7 H INR 2.9 H Sodium Potassium Chloride Carbon Dioxide Anion Gap BUN Creatinine Estim Creat Clear Calc Estimated GFR Random Glucose Calcium HIV 1&2 Ab/P24 Ag 4thGn Nonreactive 11/28/20 11/28/20 11/28/20 05:45 05:45 13:06 WBC 7.8 RBC 4.20 L Hgb 8.5 L Hct 25.3 L MCV 60.2 L MCH 20.2 L MCHC 33.6 RDW 21.6 H Plt Count 58 L MPV Not Reportable Immature Gran % (Auto) 0.4 Neut % (Auto) 62.2 Lymph % (Auto) 10.5 L [place] % (Auto) 16.2 H Eos % (Auto) 10.3 H Baso % (Auto) 0.4 Lymph # (Auto) 0.8 L [place] # (Auto) 1.3 H Eos # (Auto) 0.8 H Baso # (Auto) 0.0 Abs Immat Gran (auto) 0.03 Absolute Neuts (auto) 4.9 Absolute Nucleated RBC 0.160 H Nucleated RBC % (auto) 2.0 H Smear Path Review PT INR Sodium 130 L 131 L Potassium 3.8 4.0 Chloride 94 L 93 L Carbon Dioxide 25 28 Anion Gap 15 14 BUN 22 H 21 H Creatinine 0.93 0.91 Estim Creat Clear Calc 81.1 82.9 Estimated GFR > 60 > 60 Random Glucose 75 76 Calcium 8.1 L 8.2 L HIV 1&2 Ab/P24 Ag 4thGn Microbiology Microbiology Results: Microbiology 11/19/20 11:05 Blood - Venous Blood Culture - Final No growth after 5 days. 11/19/20 10:58 Blood - Venous Blood Culture - Final No growth after 5 days. 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
[2020-11-28 15:27] VITALS: PULSE 89; RESP 20; TEMP 36.6; O2SAT 97
[2020-11-28] MEDS: metOLazone 5 MG TABLET PO (15:41)
[2020-11-28 16:23] LABS: Haptoglobin 24 mg/dL (43-212)
[2020-11-28] MEDS: Magnesium Oxide 400 MG TABLET PO (18:51)
[2020-11-28 19:36] VITALS: BP 104/58; PULSE 102; RESP 18; TEMP 36.6; O2SAT 97
[2020-11-28 23:35] VITALS: BP 100/78; PULSE 100; RESP 20; TEMP 36.5; O2SAT 100
[2020-11-29] VITALS (7 sets, daily range): BP systolic 88–100; BP diastolic 58–72; PULSE 68–88; RESP 16–20; TEMP 35.4–36.6; O2SAT 97–100; BMI 22.2
[2020-11-29] MEDS: Levothyroxine Sodium 50 MCG TABLET PO (06:19)
[2020-11-29 08:03] LABS: INTERNATIONAL NORM RATIO 2.8 (0.9-1.1); Prothrombin Time 33.6 SEC (10.8-13.0)
[2020-11-29 08:21] LABS: Anion Gap 15 (12-20); Blood Urea Nitrogen 20 mg/dL (9-16); Calcium 8.1 mg/dL (8.4-10.2); Carbon Dioxide 29 mmol/L (22-29); Chloride 91 mmol/L (96-108); Creatinine Clr Calc Pharmacy 86.7; Estimated Glomerular Filt Rate > 60; Magnesium 1.7 mg/dL (1.6-2.6); Potassium 3.6 mmol/l (3.3-5.1); Sodium 131 mmol/L (135-145)
[2020-11-29] MEDS: Bumetanide 1 MG/4 ML VIAL 3 MG IVPUSH (09:21)
[2020-11-29] MEDS: Magnesium Oxide 400 MG TABLET PO ×2 (09:21→16:57)
[2020-11-29] MEDS: 0.9 % Sodium Chloride Flush 3 ML SYRINGE IVFLUSH ×2 (09:21→15:45)
[2020-11-29] MEDS: Ferrous Sulfate 324 MG TABLET.DR PO ×3 (09:21→16:57)
[2020-11-29] MEDS: Spironolactone 25 MG TABLET PO (09:21)
[2020-11-29] MEDS: metOLazone 5 MG TABLET PO (09:21)
[2020-11-29] MEDS: Potassium Chloride ER 20 MEQ TAB.ER.PRT 40 MEQ PO (09:21)
--- NOTE | 2020-11-29 09:44 | HO.PM.IMPN ---
Subjective Subjective Date of Service: 11/29/20 Interval History: Patient being followed for generalized edema, patient feels he is getting better, is mostly in bed since admission, denies chest pain, denies shortness of breath, at baseline was walking holding on to objects. Review of Systems Review of Systems General no headache, no dizziness, no fever chills. CVS no chest pain, no palpitation. Respiratory sob, no cough,sob. Gastrointestinal no nausea, no vomiting, no abdominal pain EXtremities foot pain/knee pain Physical Exam Vital Signs: Vital Signs: Last Vital Signs Temp 97.6 F 11/29/20 07:33 Pulse 68 11/29/20 07:33 Resp 18 11/29/20 07:33 BP 93/63 11/29/20 07:33 Pulse Ox 100 11/29/20 07:33 Body Mass Index 22.2 General no acute distress, resting in bed. Neck is supple no JVD. CVS irregular, Respiratory lungs clear to auscultation, no respiratory distress Gastrointestinal abdomen soft, nontender, bowel sounds audible Extremities generalized edema both upper extremities, lower extremities, dependent area of back, scrotum improving unchanged since yesterday Neuro nonfocal Psychiatry poor insight Objective Data Current Medications Generic Name Dose Route Start Last Admin Trade Name Freq PRN Reason Stop Dose Admin Bumetanide 3 mg 11/26/20 17:00 11/29/20 09:21 Bumetanide 1 Mg/4 Ml Vial IVPUSH 3 mg BIDWM [facility] Administration Protocol Ferrous Sulfate 324 mg 11/25/20 12:00 11/29/20 09:21 Ferrous Sulfate 324 Mg Tablet. PO 324 mg TIDWM [facility] Administration Guaifenesin 5 ml 11/20/20 10:44 11/21/20 00:01 Guaifenesin 100 Mg/5 Ml Liquid PO 5 ml Q6H PRN Administration Cough Levothyroxine Sodium 50 mcg 11/20/20 06:00 11/29/20 06:19 Levothyroxine Sodium 50 Mcg Tablet PO 50 mcg DAILY@0600 [facility] Administration Magnesium Oxide 400 mg 11/28/20 17:30 11/29/20 09:21 Magnesium Oxide 400 Mg Tablet PO 400 mg BIDPC [facility] Administration Metolazone 5 mg 11/28/20 12:45 11/29/20 09:21 Metolazone 5 Mg Tablet PO 5 mg DAILY [facility] Administration Potassium Chloride 40 meq 11/27/20 09:00 11/29/20 09:21 Potassium Chloride Er 20 Meq Tab.Er.Prt PO 40 meq DAILY [facility] Administration Sodium Chloride 3 ml 11/20/20 00:00 11/29/20 09:21 0.9 % Sodium Chloride Flush 3 Ml Syringe IVFLUSH 3 ml QSHIFT [facility] Administration Spironolactone 25 mg 11/25/20 09:00 11/29/20 09:21 Spironolactone 25 Mg Tablet PO 25 mg DAILY [facility] Administration Protocol Labs CBC & Chem 7: 11/28/20 05:45 11/29/20 05:54 Microbiology Microbiology Results: Microbiology 11/19/20 11:05 Blood - Venous Blood Culture - Final No growth after 5 days. 11/19/20 10:58 Blood - Venous Blood Culture - Final No growth after 5 days. Assessment and Plan (1) Thrombocytopenia: Status: Acute (2) Anasarca: Status: Acute (3) Hyponatremia: Status: Acute (4) Pulmonary HTN: Status: Acute (5) Acute on chronic right-sided congestive heart failure: Status: Acute (6) Acute pericardial effusion: Status: Acute (7) Acute on chronic right heart failure: Status: Acute (8) Rheumatic mitral stenosis: Status: Acute Assessment and Plan: 60M presented with anasarca Acute on chronic right-sided congestive heart failure due to severe rheumatic mitral stenosis complicated by acute kidney injury, oliguria, and pericardial effusion Patient responding well to addition of metolazone, is 4 L neg.in last 24 hours, will continue Bumex 3 mg b.i.d. and Aldactone Noted to have significant improvement in generalized edema, will recommend out of bed to chair follow electrolytes closely while being diuresed aggressively Encourage out of bed to chair. Being followed by Cardiology prognosis is guarded. Hypokalemia/hypomagnesemia due to diuresis improved, magnesium 1.7 and stable potassium follow BMP daily. Acute kidney injury in the setting of decompensated right heart failure due to type 1 cardiorenal syndrome and severe mitral stenosis Renal function normalized, will follow BMP closely. Being followed by Nephrology they recommend to continue diuresis Hypothermia resolved likely due to hypothyroidism. New onset hypothyroidism Continue Synthroid, follow TSH in 6 weeks afib with mitral stenosis On coumadin, INR trended down to 2.8, Coumadin on hold follow PT INR closely, resume Coumadin once INR below 2.5. Stable ventricular rate. Thrombocytopenia, and anemia hematocrit and platelet remains low but stable being followed by Dr. Nelson will transfuse if hematocrit below 8 , no bleeding noted.
[2020-11-29 09:54] LABS: Glucose Random 58 mg/dL (60-115)
--- NOTE | 2020-11-29 11:41 | PM.PNCARD ---
Subjective Subjective Date of Service: 11/29/20 Principal diagnosis: Congestive heart failure Interval history: He has diuresed a lot after adding metolazone but still has volume overload and some shortness of breath as well. Review of Systems Review of Systems Yes all other systems are reviewed and are negative Constitutional: Reports weakness Cardiovascular: Reports as per HPI, Reports no additional cardiovascular complaints, Denies chest pain, Denies chest pain at rest, Denies syncope, Reports dyspnea and Reports dyspnea on exertion Respiratory: Reports dyspnea and Reports dyspnea on exertion Reports confusion, Denies syncope and Reports weakness Psychiatric: Reports confusion Physical Exam Vital Signs: Last Vital Signs Temp 97.6 F 11/29/20 11:26 Pulse 76 11/29/20 11:26 Resp 18 11/29/20 11:26 BP 98/62 11/29/20 11:26 Pulse Ox 97 11/29/20 11:26 Body Mass Index 22.2 Const General: cooperative, comfortable, no acute distress and confusion Orientation/consciousness: patient oriented x3 and confusion HENMT Other: Unremarkable Neck Neck: Yes normal visual inspection Chest Chest palpation & inspection: normal inspection of the chest Resp Auscultation: clear to auscultation bilaterally, no crackles and no wheezes Cardio Jugular venous distension: no JVD Palpation: normal PMI Heart sounds: S1 normal heart sound present, S2 normal heart sound present, Gallop heart sound present, no murmurs and no rubs GI Palpation (GI): Soft to palpation Back/Spine/Pelvis Other: unremarkable Skin General skin exam: no rashes or lesions noted Neuro General: patient oriented x3 and confusion Extrem General: Yes edema (1+; hands and lower extremities. ) Psych Mental Status: mental status grossly normal Results Labs and Meds Result diagrams: 11/28/20 05:45 11/29/20 05:54 Lab results: Laboratory Results - last 24 hr 11/27/20 11/28/20 11/29/20 13:15 13:06 05:54 Haptoglobin 24 L PT INR Sodium 131 L Potassium 4.0 Chloride 93 L Carbon Dioxide 28 Anion Gap 14 BUN 21 H Creatinine 0.91 Estim Creat Clear Calc 82.9 Estimated GFR > 60 Random Glucose 76 Calcium 8.2 L Magnesium Cancelled 11/29/20 11/29/20 05:54 05:54 Haptoglobin PT 33.6 H INR 2.8 H Sodium 131 L Potassium 3.6 Chloride 91 L Carbon Dioxide 29 Anion Gap 15 BUN 20 H Creatinine 0.87 Estim Creat Clear Calc 86.7 Estimated GFR > 60 Random Glucose 58 L* Calcium 8.1 L Magnesium 1.7 Progress Note: A&P Assessment and plan (1) Rheumatic mitral stenosis: Status: Acute (2) Pulmonary hypertension: Status: Acute (3) Acute on chronic right heart failure: Status: Acute (4) Persistent atrial fibrillation: Status: Acute Assessment and Plan: He has advanced mitral stenosis, pulmonary hypertension with right heart failure. Due to severe psychiatric issues, he is not considered to be a candidate for any cardiac interventions. On IV Bumex 3mg bid. He also received metolazone 5 mg daily. He has diuresed almost 3.7 L since that time. Potassium and magnesium are stable. On telemetry, he is in atrial fibrillation with a ventricular rate of about 100/Min. Overall guarded prognosis. Fall Risk Details Current Medications: Current Medications Generic Name Dose Route Start Last Admin Trade Name Freq PRN Reason Stop Dose Admin Bumetanide 3 mg 11/26/20 17:00 11/29/20 09:21 Bumetanide 1 Mg/4 Ml Vial IVPUSH 3 mg BIDWM [facility] Administration Protocol Ferrous Sulfate 324 mg 11/25/20 12:00 11/29/20 09:21 Ferrous Sulfate 324 Mg Tablet. PO 324 mg TIDWM [facility] Administration Guaifenesin 5 ml 11/20/20 10:44 11/21/20 00:01 Guaifenesin 100 Mg/5 Ml Liquid PO 5 ml Q6H PRN Administration Cough Levothyroxine Sodium 50 mcg 11/20/20 06:00 11/29/20 06:19 Levothyroxine Sodium 50 Mcg Tablet PO 50 mcg DAILY@0600 [facility] Administration Magnesium Oxide 400 mg 11/28/20 17:30 11/29/20 09:21 Magnesium Oxide 400 Mg Tablet PO 400 mg BIDPC [facility] Administration Metolazone 5 mg 11/28/20 12:45 11/29/20 09:21 Metolazone 5 Mg Tablet PO 5 mg DAILY [facility] Administration Potassium Chloride 40 meq 11/27/20 09:00 11/29/20 09:21 Potassium Chloride Er 20 Meq Tab.Er.Prt PO 40 meq DAILY [facility] Administration Potassium Chloride 20 meq 11/29/20 16:00 Potassium Chloride Er 20 Meq Tab.Er.Prt PO DAILY [facility] Sodium Chloride 3 ml 11/20/20 00:00 11/29/20 09:21 0.9 % Sodium Chloride Flush 3 Ml Syringe IVFLUSH 3 ml QSHIFT [facility] Administration Spironolactone 25 mg 11/25/20 09:00 11/29/20 09:21 Spironolactone 25 Mg Tablet PO 25 mg DAILY [facility] Administration Protocol Time Spent With Patient Time: Total time spent is greater than 50% in coordination of care (as documented) at patient's floor/unit and/or counseling patient: Time with patient: less than 15 minutes
[2020-11-29] MEDS: Potassium Chloride ER 20 MEQ TAB.ER.PRT PO (15:45)
--- NOTE | 2020-11-29 15:45 | P.PNNP_ITS ---
Subjective Subjective Date of Service: 11/29/20 Principal diagnosis: Congestive heart failure Interval history: * Events noted Physical Exam Vital Signs: Vital Signs: Last Vital Signs Temp 97.8 F 11/29/20 15:36 Pulse 72 11/29/20 15:36 Resp 18 11/29/20 15:36 BP 96/58 L 11/29/20 15:36 Pulse Ox 97 11/29/20 15:36 Body Mass Index 22.2 Const: General: cooperative Orientation/consciousness: oriented to person Eyes: General: appearance normal, both eyes and all related structures Neck: Neck: Yes no JVD Resp: Auscultation: diminished lung sounds Cardio: Jugular venous distension: no JVD Heart sounds: no rubs GI: Inspection: Yes normal to inspection Auscultation: normal bowel sounds Neuro: General: oriented to person Motor exam (neuro): no asterixis Objective Data Labs CBC & Chem 7: 11/28/20 05:45 11/29/20 05:54 Labs: Laboratory Results - last 24 hr 11/27/20 11/29/20 11/29/20 13:15 05:54 05:54 Haptoglobin 24 L PT 33.6 H INR 2.8 H Sodium Potassium Chloride Carbon Dioxide Anion Gap BUN Creatinine Estim Creat Clear Calc Estimated GFR Random Glucose Calcium Magnesium Cancelled 11/29/20 05:54 Haptoglobin PT INR Sodium 131 L Potassium 3.6 Chloride 91 L Carbon Dioxide 29 Anion Gap 15 BUN 20 H Creatinine 0.87 Estim Creat Clear Calc 86.7 Estimated GFR > 60 Random Glucose 58 L* Calcium 8.1 L Magnesium 1.7 Microbiology Microbiology Results: Microbiology 11/19/20 11:05 Blood - Venous Blood Culture - Final No growth after 5 days. 11/19/20 10:58 Blood - Venous Blood Culture - Final No growth after 5 days. 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
[2020-11-29] MEDS: Acetaminophen 325 MG TABLET PO (18:28)
[2020-11-29 21:16] LABS: Glucose, Whole Blood 108 mg/dL (60-115)
[2020-11-29] MEDS: Midodrine HCl 5 MG TABLET PO (22:41)
[2020-11-30] VITALS (12 sets, daily range): BP systolic 92–133; BP diastolic 56–75; PULSE 72–94; RESP 16–20; TEMP 34.8–36.6; O2SAT 95–100; BMI 22.1
--- NOTE | 2020-11-30 | XR_ITS ---
EXAMINATION: XR CHEST CLINICAL INFORMATION: Hypothermic COMPARISON: 11/03/2020 TECHNIQUE: Portable 6:47 AM view of the chest was obtained. FINDINGS: Cardiomegaly stable. No overt CHF. Minimal dependent increased density right upper lobe likely summation shadow of normal bronchovascular structures. No interval change. XR/XR chest 1V IMPRESSION: Stable exam. No active chest disease. Cardiomegaly stable.
[2020-11-30] MEDS: 0.9 % Sodium Chloride Flush 3 ML SYRINGE IVFLUSH ×3 (00:48→17:37)
[2020-11-30] MEDS: Levothyroxine Sodium 50 MCG TABLET PO (06:14)
--- NOTE | 2020-11-30 06:32 | PM.EVENT ---
Event Note Date of Service: 11/30/20 Event Note: Patient hypotensive, thought to be secondary to Bumex but also now hypothermic, on Fransico Hugger. Will obtain labs including stat CBC, BMP, lactic acid, cultures. Pending these results will hold off starting antibiotics. No hypoxia, no urinary symptoms. I do not believe patient is septic and his hypertension is most likely secondary to the Bumex, and hypothermia is possibly secondary to hypertension.
[2020-11-30 07:12] LABS: Hemoglobin 7.8 g/dl (14.0-18.0); Imm Gran Abs Auto 0.02 X10*3/uL (0.00-0.03); Imm Gran Pct Auto 0.3 % (0.0-0.4); MANUAL DIFF FLAG SCAN; Monocytes Absolute Auto 0.9 X10*3/uL (0.1-1.2); SCAN SMEAR FLAG 1
[2020-11-30 07:14] LABS: Basophils Percent Auto 0.1 % (0-2); Eosinophils Absolute Auto 0.7 X10*3/uL (0.0-0.4); Eosinophils Percent Auto 10.4 % (0-4); Hematocrit 23.3 % (42-52); Lymphocytes Absolute Auto 0.7 X10*3/uL (1.2-4.9); Lymphocytes Percent Auto 10.2 % (20-40); Mean Corpuscular HGB Conc 33.5 g/dl (31.0-36.0); Mean Corpuscular Hemoglobin 20.3 pg (27.0-33.0); Monocytes Percent Auto 13.5 % (2-11); NRBC Pct Auto 0.9 /100WBC (0.0-0.2); Neutrophils Absolute Auto 4.5 X10*3/uL (2.0-8.3); Neutrophils Percent Auto 65.5 % (45-73); Red Blood Count 3.85 X10*6/uL (4.60-5.80); Red Cell Distribution Width 21.3 % (11.0-16.0); White Blood Count 6.9 X10*3/uL (4.8-10.8)
[2020-11-30 07:27] LABS: Lactic Acid 1.5 mmol/L (0.5-2.0)
[2020-11-30 07:37] LABS: Blood Urea Nitrogen 23 mg/dL (9-16); Calcium 8.2 mg/dL (8.4-10.2); Creatinine Clr Calc Pharmacy 85.6; Estimated Glomerular Filt Rate > 60; Glucose Random 85 mg/dL (60-115)
[2020-11-30 07:50] LABS: Anion Gap 15 (12-20); Carbon Dioxide 28 mmol/L (22-29); Chloride 88 mmol/L (96-108); Potassium 3.4 mmol/l (3.3-5.1); Sodium 128 mmol/L (135-145)
[2020-11-30 07:52] LABS: Mean Corpuscular Volume 60.5 fL (80-98); PLT ABN DIST 1; Platelet Count 82 X10*3/uL (160-400)
--- NOTE | 2020-11-30 07:52 | PC.NURSE ---
Addendum entered by Maricruz Gramajo RN 11/30/20 07:57: Orders in for CXR, Lactic acid, CBC, BC, BMP and UA. Original Note: Patient with low temp overnight. T 95.7 and 94.7, rectally - warming blanket on patient per MD order. After warming blanket was on patient for one hour, rectal temp remains 94.7, Dr. Solis notified, warming blanket remains on patient. Nursing will continue to monitor.
[2020-11-30 07:53] LABS: SLIDE REVIEW VERIFIED
[2020-11-30 07:56] LABS: Thyroid Stimulating Hormone 11.36 uIU/mL (0.32-4.0)
--- NOTE | 2020-11-30 07:59 | PC.NURSE ---
Patient with BP 88/62 at change of shift, 3-11 nurse administered PO midodrine. BP 96/65 at next check, pt is alert to baseline and asking for snacks.
[2020-11-30] MEDS: Magnesium Oxide 400 MG TABLET PO ×2 (08:11→17:37)
[2020-11-30] MEDS: Spironolactone 25 MG TABLET PO (08:11)
[2020-11-30] MEDS: Ferrous Sulfate 324 MG TABLET.DR PO ×3 (08:12→17:37)
[2020-11-30] MEDS: metOLazone 5 MG TABLET PO (08:12)
[2020-11-30] MEDS: Potassium Chloride ER 20 MEQ TAB.ER.PRT PO (08:13)
[2020-11-30] MEDS: Potassium Chloride ER 20 MEQ TAB.ER.PRT 40 MEQ PO (08:13)
[2020-11-30] MEDS: Bumetanide 1 MG/4 ML VIAL 3 MG IVPUSH (08:14)
[2020-11-30 08:21] LABS: IgA 686 mg/dL (47-310); IgG 1684 mg/dL (600-1640); IgM 141 mg/dL (50-300)
--- NOTE | 2020-11-30 11:17 | P.PNCA_ITS ---
Subjective Subjective Date of Service: 11/30/20 Principal diagnosis: Congestive heart failure Interval history: Slowly improving but still weak and deconditioned. Shortness of breath is better. Leg swelling is also better. Review of Systems Constitutional: Reports weakness Cardiovascular: Reports as per HPI, Reports no additional cardiovascular complaints, Denies chest pain, Denies chest pain at rest, Denies chest pain with activity, Denies syncope, Denies irregular heart rhythm, Reports leg edema, Denies lightheadedness, Denies palpitations, Reports dyspnea and Reports dyspnea on exertion Respiratory: Reports dyspnea and Reports dyspnea on exertion Reports confusion, Denies syncope and Reports weakness Psychiatric: Reports confusion Endocrine: Denies palpitations Physical Exam Vital Signs: Last Vital Signs Temp 97.4 F 11/30/20 11:10 Pulse 80 11/30/20 11:10 Resp 20 11/30/20 11:10 BP 110/66 11/30/20 11:10 Pulse Ox 96 11/30/20 11:10 Body Mass Index 22.1 Const General: cooperative, comfortable, no acute distress and confusion Orientation/consciousness: patient oriented x3 and confusion HENMI Other: Unremarkable Neck Neck: Yes normal visual inspection Chest Chest palpation & inspection: normal inspection of the chest Resp Auscultation: clear to auscultation bilaterally, no crackles and no wheezes Cardio Jugular venous distension: no JVD Palpation: normal PMI Heart sounds: S1 normal heart sound present, S2 normal heart sound present, Gallop heart sound present, no murmurs and no rubs GI Palpation (GI): Soft to palpation Back/Spine/Pelvis Other: unremarkable Skin General skin exam: no rashes or lesions noted Neuro General: patient oriented x3 and confusion Extrem General: Yes edema (1+; hands and lower extremities. ) Psych Mental Status: mental status grossly normal Results Labs and Meds Result diagrams: 11/30/20 06:40 11/30/20 05:55 Lab results: Laboratory Results - last 24 hr 11/27/20 11/27/20 11/29/20 13:15 13:15 21:04 WBC RBC Hgb Hct MCV MCH MCHC RDW Plt Count MPV Immature Gran % (Auto) Neut % (Auto) Lymph % (Auto) [place] % (Auto) Eos % (Auto) Baso % (Auto) Lymph # (Auto) [place] # (Auto) Eos # (Auto) Baso # (Auto) Abs Immat Gran (auto) Absolute Neuts (auto) Absolute Nucleated RBC Nucleated RBC % (auto) Smear Tech's Comments Sodium Potassium Chloride Carbon Dioxide Anion Gap BUN Creatinine Estim Creat Clear Calc Estimated GFR POC Glucose 108 Random Glucose Lactic Acid Calcium TSH IgG Total 1684 H IgA Total 686 H IgM 141 HIRA Interpretation SEE NOTE Blood Type B Positive Antibody Screen NEGATIVE Crossmatch See Detail 11/30/20 11/30/20 11/30/20 05:55 06:40 06:40 WBC 6.9 RBC 3.85 L Hgb 7.8 L Hct 23.3 L MCV 60.5 L MCH 20.3 L MCHC 33.5 RDW 21.3 H Plt Count 82 L D MPV Not Reportable Immature Gran % (Auto) 0.3 Neut % (Auto) 65.5 Lymph % (Auto) 10.2 L [place] % (Auto) 13.5 H Eos % (Auto) 10.4 H Baso % (Auto) 0.1 Lymph # (Auto) 0.7 L [place] # (Auto) 0.9 Eos # (Auto) 0.7 H Baso # (Auto) 0.0 Abs Immat Gran (auto) 0.02 Absolute Neuts (auto) 4.5 Absolute Nucleated RBC 0.060 H Nucleated RBC % (auto) 0.9 H Smear Tech's Comments VERIFIED Sodium 128 L Cancelled Potassium 3.4 Cancelled Chloride 88 L Cancelled Carbon Dioxide 28 Cancelled Anion Gap 15 Cancelled BUN 23 H Cancelled Creatinine 0.88 Cancelled Estim Creat Clear Calc 85.6 Cancelled Estimated GFR > 60 Cancelled POC Glucose Random Glucose 85 D Cancelled Lactic Acid Calcium 8.2 L Cancelled TSH 11.36 H IgG Total IgA Total IgM HIRA Interpretation Blood Type Antibody Screen Crossmatch 11/30/20 06:40 WBC RBC Hgb Hct MCV MCH MCHC RDW Plt Count MPV Immature Gran % (Auto) Neut % (Auto) Lymph % (Auto) [place] % (Auto) Eos % (Auto) Baso % (Auto) Lymph # (Auto) [place] # (Auto) Eos # (Auto) Baso # (Auto) Abs Immat Gran (auto) Absolute Neuts (auto) Absolute Nucleated RBC Nucleated RBC % (auto) Smear Tech's Comments Sodium Potassium Chloride Carbon Dioxide Anion Gap BUN Creatinine Estim Creat Clear Calc Estimated GFR POC Glucose Random Glucose Lactic Acid 1.5 Calcium TSH IgG Total IgA Total IgM HIRA Interpretation Blood Type Antibody Screen Crossmatch Imaging Radiologist's impression: Impressions Chest X-Ray 11/30/20 00:00 IMPRESSION: Stable exam. No active chest disease. Cardiomegaly stable. Progress Note: A&P Assessment and plan (1) Rheumatic mitral stenosis: Status: Acute (2) Pulmonary hypertension: Status: Acute (3) Acute on chronic right heart failure: Status: Acute (4) Persistent atrial fibrillation: Status: Acute Assessment and Plan: He has advanced mitral stenosis, pulmonary hypertension with right heart failure. Due to severe psychiatric issues, he is not considered to be a candidate for any cardiac interventions. Continues to be on IV Bumex and metolazone. He has diuresed almost 15 L since admission. We can hold diuretics for a day or so. Keep lytes corrected. On telemetry, he is in atrial fibrillation with a ventricular rate of about 100/Min. Overall guarded prognosis. Fall Risk Details Current Medications: Current Medications Generic Name Dose Route Start Last Admin Trade Name Freq PRN Reason Stop Dose Admin Acetaminophen 325 mg 11/29/20 17:21 11/29/20 18:28 Acetaminophen 325 Mg Tablet PO 325 mg Q6H PRN Administration Pain, Mild (Pain Scale 1-3) Ferrous Sulfate 324 mg 11/25/20 12:00 11/30/20 08:12 Ferrous Sulfate 324 Mg Tablet. PO 324 mg TIDWM EUSEBIO Administration Guaifenesin 5 ml 11/20/20 10:44 11/21/20 00:01 Guaifenesin 100 Mg/5 Ml Liquid PO 5 ml Q6H PRN Administration Cough Levothyroxine Sodium 50 mcg 11/20/20 06:00 11/30/20 06:14 Levothyroxine Sodium 50 Mcg Tablet PO 50 mcg DAILY@0600 EUSEBIO Administration Magnesium Oxide 400 mg 11/28/20 17:30 11/30/20 08:11 Magnesium Oxide 400 Mg Tablet PO 400 mg BIDPC EUSEBIO Administration Potassium Chloride 40 meq 11/27/20 09:00 11/30/20 08:13 Potassium Chloride Er 20 Meq Tab.Er.Prt PO 40 meq DAILY EUSEBIO Administration Potassium Chloride 20 meq 11/29/20 16:00 11/30/20 08:13 Potassium Chloride Er 20 Meq Tab.Er.Prt PO 20 meq DAILY EUSEBIO Administration Sodium Chloride 3 ml 11/20/20 00:00 11/30/20 08:14 0.9 % Sodium Chloride Flush 3 Ml Syringe IVFLUSH 3 ml QSHIFT EUSEBIO Administration Spironolactone 25 mg 11/25/20 09:00 11/30/20 08:11 Spironolactone 25 Mg Tablet PO 25 mg DAILY EUSEBIO Administration Protocol Time Spent With Patient Time: Total time spent is greater than 50% in coordination of care (as documented) at patient's floor/unit and/or counseling patient: Time with patient: less than 15 minutes
--- NOTE | 2020-11-30 12:24 | HO.PM.IMPN ---
Subjective Subjective Date of Service: 11/30/20 Interval History: Patient being followed for generalized edema, patient feels he is getting better, is mostly in bed since admission, denies chest pain, denies shortness of breath, at baseline was walking holding on to objects. Review of Systems Review of Systems General no headache, no dizziness, no fever chills. CVS no chest pain, no palpitation. Respiratory sob, no cough,sob. Gastrointestinal no nausea, no vomiting, no abdominal pain EXtremities complaining of leg swelling Physical Exam Vital Signs: Vital Signs: Last Vital Signs Temp 97.8 F 11/30/20 11:48 Pulse 78 11/30/20 11:48 Resp 20 11/30/20 11:48 BP 92/64 11/30/20 11:48 Pulse Ox 96 11/30/20 11:10 Body Mass Index 22.1 Const: Other: General patient resting comfortably in no acute distress, edema to back and upper extremities improving. Neck is supple no JVD. CVS irregular Respiratory lungs clear to auscultation, no respiratory distress. Gastrointestinal abdomen soft, nontender, bowel sounds audible Extremities generalize edema. Neuro moving all 4 extremity speech clear. Skin no rash Objective Data Current Medications Generic Name Dose Route Start Last Admin Trade Name Freq PRN Reason Stop Dose Admin Acetaminophen 325 mg 11/29/20 17:21 11/29/20 18:28 Acetaminophen 325 Mg Tablet PO 325 mg Q6H PRN Administration Pain, Mild (Pain Scale 1-3) Ferrous Sulfate 324 mg 11/25/20 12:00 11/30/20 11:40 Ferrous Sulfate 324 Mg Tablet.Dr PO 324 mg TIDWM EUSEBIO Administration Guaifenesin 5 ml 11/20/20 10:44 11/21/20 00:01 Guaifenesin 100 Mg/5 Ml Liquid PO 5 ml Q6H PRN Administration Cough Levothyroxine Sodium 50 mcg 11/20/20 06:00 11/30/20 06:14 Levothyroxine Sodium 50 Mcg Tablet PO 50 mcg DAILY@0600 EUSEBIO Administration Magnesium Oxide 400 mg 11/28/20 17:30 11/30/20 08:11 Magnesium Oxide 400 Mg Tablet PO 400 mg BIDPC EUSEBIO Administration Potassium Chloride 40 meq 11/27/20 09:00 11/30/20 08:13 Potassium Chloride Er 20 Meq Tab.Er.Prt PO 40 meq DAILY EUSEBIO Administration Potassium Chloride 20 meq 11/29/20 16:00 11/30/20 08:13 Potassium Chloride Er 20 Meq Tab.Er.Prt PO 20 meq DAILY EUSEBIO Administration Sodium Chloride 3 ml 11/20/20 00:00 11/30/20 08:14 0.9 % Sodium Chloride Flush 3 Ml Syringe IVFLUSH 3 ml QSHIFT EUSEBIO Administration Spironolactone 25 mg 11/25/20 09:00 11/30/20 08:11 Spironolactone 25 Mg Tablet PO 25 mg DAILY EUSEBIO Administration Protocol Labs CBC & Chem 7: 11/30/20 06:40 11/30/20 05:55 Microbiology Microbiology Results: Microbiology 11/19/20 11:05 Blood - Venous Blood Culture - Final No growth after 5 days. 11/19/20 10:58 Blood - Venous Blood Culture - Final No growth after 5 days. Assessment and Plan (1) Thrombocytopenia: Status: Acute (2) Anasarca: Status: Acute (3) Hyponatremia: Status: Acute (4) Pulmonary HTN: Status: Acute (5) Acute on chronic right-sided congestive heart failure: Status: Acute (6) Acute pericardial effusion: Status: Acute (7) Acute on chronic right heart failure: Status: Acute (8) Rheumatic mitral stenosis: Status: Acute Assessment and Plan: 60M presented with anasarca Acute on chronic right-sided congestive heart failure due to severe rheumatic mitral stenosis complicated by acute kidney injury, oliguria, and pericardial effusion Patient responding well to addition of metolazone, is 6 L neg.in last 48 hours, on Bumex iv 3 mg b.i.d. and Aldactone. Case discussed with Cardiology will hold IV diuretic today and hold metolazone. Noted to have significant improvement in generalized edema, will recommend out of bed to chair follow electrolytes closely while being diuresed aggressively Encourage out of bed to chair. Being followed by Cardiology prognosis is guarded. Consult physical therapy Hypokalemia/hypomagnesemia due to diuresis improved, magnesium 1.7 and stable potassium follow BMP daily. Acute kidney injury in the setting of decompensated right heart failure due to type 1 cardiorenal syndrome and severe mitral stenosis Renal function normalized, will follow BMP closely. Being followed by Nephrology they recommend to continue diuresis Hypothermia resolved likely due to hypothyroidism. New onset hypothyroidism Continue Synthroid, repeat TSH improving down to 11.36 from 22.39. afib with mitral stenosis On coumadin, INR trended down to 2.8, Coumadin on hold follow PT INR closely, resume Coumadin once INR below 2.5. Stable ventricular rate. Thrombocytopenia, and anemia hematocrit and platelet remains low but stable being followed by Dr. Nelson will transfuse if hematocrit below 8 , no bleeding noted.
--- NOTE | 2020-11-30 12:57 | P.PNNP_ITS ---
Subjective Subjective Date of Service: 11/30/20 Principal diagnosis: Congestive heart failure Interval history: Events noted I/Os noted Physical Exam Vital Signs: Vital Signs: Last Vital Signs Temp 97.8 F 11/30/20 11:48 Pulse 78 11/30/20 11:48 Resp 20 11/30/20 11:48 BP 92/64 11/30/20 11:48 Pulse Ox 96 11/30/20 11:10 Body Mass Index 22.1 Const: General: cooperative Orientation/consciousness: oriented to person Eyes: General: appearance normal, both eyes and all related structures Neck: Neck: Yes no JVD Resp: Auscultation: diminished lung sounds Cardio: Jugular venous distension: no JVD Heart sounds: no rubs GI: Inspection: Yes normal to inspection Auscultation: normal bowel sounds Neuro: General: oriented to person Motor exam (neuro): no asterixis Objective Data Labs CBC & Chem 7: 11/30/20 06:40 11/30/20 05:55 Labs: Laboratory Results - last 24 hr 11/27/20 11/27/20 11/29/20 13:15 13:15 21:04 WBC RBC Hgb Hct MCV MCH MCHC RDW Plt Count MPV Immature Gran % (Auto) Neut % (Auto) Lymph % (Auto) [place] % (Auto) Eos % (Auto) Baso % (Auto) Lymph # (Auto) [place] # (Auto) Eos # (Auto) Baso # (Auto) Abs Immat Gran (auto) Absolute Neuts (auto) Absolute Nucleated RBC Nucleated RBC % (auto) Smear Tech's Comments Sodium Potassium Chloride Carbon Dioxide Anion Gap BUN Creatinine Estim Creat Clear Calc Estimated GFR POC Glucose 108 Random Glucose Lactic Acid Calcium TSH IgG Total 1684 H IgA Total 686 H IgM 141 HIRA Interpretation SEE NOTE Blood Type B Positive Antibody Screen NEGATIVE Crossmatch See Detail 11/30/20 11/30/20 11/30/20 05:55 06:40 06:40 WBC 6.9 RBC 3.85 L Hgb 7.8 L Hct 23.3 L MCV 60.5 L MCH 20.3 L MCHC 33.5 RDW 21.3 H Plt Count 82 L D MPV Not Reportable Immature Gran % (Auto) 0.3 Neut % (Auto) 65.5 Lymph % (Auto) 10.2 L [place] % (Auto) 13.5 H Eos % (Auto) 10.4 H Baso % (Auto) 0.1 Lymph # (Auto) 0.7 L [place] # (Auto) 0.9 Eos # (Auto) 0.7 H Baso # (Auto) 0.0 Abs Immat Gran (auto) 0.02 Absolute Neuts (auto) 4.5 Absolute Nucleated RBC 0.060 H Nucleated RBC % (auto) 0.9 H Smear Tech's Comments VERIFIED Sodium 128 L Cancelled Potassium 3.4 Cancelled Chloride 88 L Cancelled Carbon Dioxide 28 Cancelled Anion Gap 15 Cancelled BUN 23 H Cancelled Creatinine 0.88 Cancelled Estim Creat Clear Calc 85.6 Cancelled Estimated GFR > 60 Cancelled POC Glucose Random Glucose 85 D Cancelled Lactic Acid Calcium 8.2 L Cancelled TSH 11.36 H IgG Total IgA Total IgM HIRA Interpretation Blood Type Antibody Screen Crossmatch 11/30/20 06:40 WBC RBC Hgb Hct MCV MCH MCHC RDW Plt Count MPV Immature Gran % (Auto) Neut % (Auto) Lymph % (Auto) [place] % (Auto) Eos % (Auto) Baso % (Auto) Lymph # (Auto) [place] # (Auto) Eos # (Auto) Baso # (Auto) Abs Immat Gran (auto) Absolute Neuts (auto) Absolute Nucleated RBC Nucleated RBC % (auto) Smear Tech's Comments Sodium Potassium Chloride Carbon Dioxide Anion Gap BUN Creatinine Estim Creat Clear Calc Estimated GFR POC Glucose Random Glucose Lactic Acid 1.5 Calcium TSH IgG Total IgA Total IgM HIRA Interpretation Blood Type Antibody Screen Crossmatch Microbiology Microbiology Results: Microbiology 11/19/20 11:05 Blood - Venous Blood Culture - Final No growth after 5 days. 11/19/20 10:58 Blood - Venous Blood Culture - Final No growth after 5 days. Assessment & Plan Assessment and plan (1) RUDY (acute kidney injury): Problem details: 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 patient with severe mitral stenosis REC continue spironolactone agree with bumetanide and continue to diurese Watch pNa; Restrict PO water intake follow kidney function and electrolytes Status: Acute Time Spent With Patient Time: Total time spent is greater than 50% in coordination of care (as documented) at patient's floor/unit and/or counseling patient:
[2020-11-30 15:16] LABS: INTERNATIONAL NORM RATIO 2.9 (0.9-1.1); Prothrombin Time 34.6 SEC (10.8-13.0)
[2020-11-30 16:44] LABS: Glucose, Whole Blood 98 mg/dL (60-115)
[2020-11-30 20:43] LABS: Glucose, Whole Blood 125 mg/dL (60-115)
[2020-12-01] VITALS (8 sets, daily range): BP systolic 96–156; BP diastolic 63–100; PULSE 73–90; RESP 18–20; TEMP 36.1–36.9; O2SAT 97–100
[2020-12-01] MEDS: 0.9 % Sodium Chloride Flush 3 ML SYRINGE IVFLUSH ×4 (00:38→23:19)
[2020-12-01] MEDS: Levothyroxine Sodium 50 MCG TABLET PO (06:24)
[2020-12-01 06:33] LABS: Hemoglobin 9.5 g/dl (14.0-18.0); Imm Gran Abs Auto 0.02 X10*3/uL (0.00-0.03); Imm Gran Pct Auto 0.3 % (0.0-0.4); MANUAL DIFF FLAG SCAN; Mean Corpuscular Hemoglobin 21.2 pg (27.0-33.0); SCAN SMEAR FLAG 1
[2020-12-01 06:34] LABS: Basophils Percent Auto 0.4 % (0-2); Eosinophils Absolute Auto 0.7 X10*3/uL (0.0-0.4); Eosinophils Percent Auto 8.8 % (0-4); Hematocrit 28.4 % (42-52); Lymphocytes Absolute Auto 0.9 X10*3/uL (1.2-4.9); Lymphocytes Percent Auto 11.7 % (20-40); Mean Corpuscular HGB Conc 33.5 g/dl (31.0-36.0); Monocytes Percent Auto 13.6 % (2-11); NRBC Pct Auto 0.9 /100WBC (0.0-0.2); Neutrophils Absolute Auto 4.9 X10*3/uL (2.0-8.3); Neutrophils Percent Auto 65.2 % (45-73); Platelet Count 109 X10*3/uL (160-400); Red Blood Count 4.49 X10*6/uL (4.60-5.80); Red Cell Distribution Width 24.5 % (11.0-16.0); White Blood Count 7.5 X10*3/uL (4.8-10.8)
[2020-12-01 06:45] LABS: Mean Corpuscular Volume 63.3 fL (80-98)
[2020-12-01 06:46] LABS: PLT ABN DIST 1
[2020-12-01 06:59] LABS: Anion Gap 17 (12-20); Blood Urea Nitrogen 24 mg/dL (9-16); Calcium 8.4 mg/dL (8.4-10.2); Carbon Dioxide 28 mmol/L (22-29); Chloride 87 mmol/L (96-108); Creatinine Clr Calc Pharmacy 90.8; Estimated Glomerular Filt Rate > 60; Glucose Random 75 mg/dL (60-115); Magnesium 1.7 mg/dL (1.6-2.6); Potassium 3.6 mmol/l (3.3-5.1); Sodium 128 mmol/L (135-145)
[2020-12-01 07:58] LABS: SLIDE REVIEW VERIFIED
[2020-12-01] MEDS: Spironolactone 25 MG TABLET PO (09:02)
[2020-12-01] MEDS: Potassium Chloride ER 20 MEQ TAB.ER.PRT PO (09:02)
[2020-12-01] MEDS: Magnesium Oxide 400 MG TABLET PO ×2 (09:02→16:43)
[2020-12-01] MEDS: Potassium Chloride ER 20 MEQ TAB.ER.PRT 40 MEQ PO (09:02)
[2020-12-01] MEDS: Ferrous Sulfate 324 MG TABLET.DR PO ×3 (09:02→16:42)
--- NOTE | 2020-12-01 12:22 | PM.PNCARD ---
Subjective Subjective Date of Service: 12/01/20 Principal diagnosis: Congestive heart failure Interval history: Patient looks somewhat lethargic today. Not answering questions as much. Appears sleepy. He is in a recliner. Review of Systems Review of Systems Yes all other systems are reviewed and are negative Constitutional: Reports weakness Cardiovascular: Reports as per HPI, Reports no additional cardiovascular complaints, Denies chest pain, Denies chest pain at rest, Denies chest pain with activity, Denies Epigastric Pain, Denies syncope, Denies lightheadedness, Reports dyspnea and Reports dyspnea on exertion Respiratory: Reports dyspnea and Reports dyspnea on exertion Reports confusion, Denies syncope and Reports weakness Psychiatric: Reports confusion Physical Exam Vital Signs: Last Vital Signs Temp 97.5 F 12/01/20 08:00 Pulse 88 12/01/20 09:02 Resp 18 12/01/20 08:00 BP 100/63 12/01/20 09:02 Pulse Ox 99 12/01/20 08:00 Body Mass Index 22.1 Const General: cooperative, comfortable, no acute distress and confusion Orientation/consciousness: patient oriented x3 and confusion HENID Other: Unremarkable Neck Neck: Yes normal visual inspection Chest Chest palpation & inspection: normal inspection of the chest Resp Auscultation: clear to auscultation bilaterally, no crackles and no wheezes Cardio Jugular venous distension: no JVD Palpation: normal PMI Heart sounds: S1 normal heart sound present, S2 normal heart sound present, Gallop heart sound present, no murmurs and no rubs GI Palpation (GI): Soft to palpation Back/Spine/Pelvis Other: unremarkable Skin General skin exam: no rashes or lesions noted Neuro General: patient oriented x3 and confusion Extrem General: Yes edema (1+; hands and lower extremities. ) Psych Mental Status: mental status grossly normal Results Labs and Meds Result diagrams: 12/01/20 06:01 12/01/20 06:01 Lab results: Laboratory Results - last 24 hr 11/27/20 11/30/20 11/30/20 13:15 15:01 16:32 WBC RBC Hgb Hct MCV MCH MCHC RDW Plt Count MPV Immature Gran % (Auto) Neut % (Auto) Lymph % (Auto) [place] % (Auto) Eos % (Auto) Baso % (Auto) Lymph # (Auto) [place] # (Auto) Eos # (Auto) Baso # (Auto) Abs Immat Gran (auto) Absolute Neuts (auto) Absolute Nucleated RBC Nucleated RBC % (auto) Smear Tech's Comments PT 34.6 H INR 2.9 H Sodium Potassium Chloride Carbon Dioxide Anion Gap BUN Creatinine Estim Creat Clear Calc Estimated GFR POC Glucose 98 Random Glucose Calcium Magnesium Crossmatch See Detail 11/30/20 12/01/20 12/01/20 20:40 06:01 06:01 WBC 7.5 RBC 4.49 L Hgb 9.5 L D Hct 28.4 L D MCV 63.3 L MCH 21.2 L MCHC 33.5 RDW 24.5 H Plt Count 109 L D MPV TNP Immature Gran % (Auto) 0.3 Neut % (Auto) 65.2 Lymph % (Auto) 11.7 L [place] % (Auto) 13.6 H Eos % (Auto) 8.8 H Baso % (Auto) 0.4 Lymph # (Auto) 0.9 L [place] # (Auto) 1.0 Eos # (Auto) 0.7 H Baso # (Auto) 0.0 Abs Immat Gran (auto) 0.02 Absolute Neuts (auto) 4.9 Absolute Nucleated RBC 0.070 H Nucleated RBC % (auto) 0.9 H Smear Tech's Comments VERIFIED PT INR Sodium 128 L Potassium 3.6 Chloride 87 L Carbon Dioxide 28 Anion Gap 17 BUN 24 H Creatinine 0.83 Estim Creat Clear Calc 90.8 Estimated GFR > 60 POC Glucose 125 H Random Glucose 75 Calcium 8.4 Magnesium 1.7 Crossmatch Progress Note: A&P Assessment and plan (1) Rheumatic mitral stenosis: Status: Acute (2) Pulmonary hypertension: Status: Acute (3) Acute on chronic right heart failure: Status: Acute (4) Persistent atrial fibrillation: Status: Acute Assessment and Plan: He has advanced mitral stenosis, pulmonary hypertension with right heart failure. Due to severe psychiatric issues, he is not considered to be a candidate for any cardiac interventions. Continues to be on Bumex and metolazone. He is almost -16L since admission. Discharge diuretic can be Bumex 3 mg b.i.d. along with metolazone 3 times a week or so. He will need follow-up basic metabolic panels as an outpatient. He is also on a small dose of spironolactone. Overall prognosis is guarded. Fall Risk Details Current Medications: Current Medications Generic Name Dose Route Start Last Admin Trade Name Freq PRN Reason Stop Dose Admin Acetaminophen 325 mg 11/29/20 17:21 11/29/20 18:28 Acetaminophen 325 Mg Tablet PO 325 mg Q6H PRN Administration Pain, Mild (Pain Scale 1-3) Ferrous Sulfate 324 mg 11/25/20 12:00 12/01/20 12:14 Ferrous Sulfate 324 Mg Tablet.Dr PO 324 mg TIDWM EUSEBIO Administration Guaifenesin 5 ml 11/20/20 10:44 11/21/20 00:01 Guaifenesin 100 Mg/5 Ml Liquid PO 5 ml Q6H PRN Administration Cough Levothyroxine Sodium 50 mcg 11/20/20 06:00 12/01/20 06:24 Levothyroxine Sodium 50 Mcg Tablet PO 50 mcg DAILY@0600 [facility] Administration Magnesium Oxide 400 mg 11/28/20 17:30 12/01/20 09:02 Magnesium Oxide 400 Mg Tablet PO 400 mg BIDPC EUSEBIO Administration Potassium Chloride 40 meq 11/27/20 09:00 12/01/20 09:02 Potassium Chloride Er 20 Meq Tab.Er.Prt PO 40 meq DAILY EUSEBIO Administration Potassium Chloride 20 meq 11/29/20 16:00 12/01/20 09:02 Potassium Chloride Er 20 Meq Tab.Er.Prt PO 20 meq DAILY EUSEBIO Administration Sodium Chloride 3 ml 11/20/20 00:00 12/01/20 09:02 0.9 % Sodium Chloride Flush 3 Ml Syringe IVFLUSH 3 ml QSHIFT EUSEBIO Administration Spironolactone 25 mg 11/25/20 09:00 12/01/20 09:02 Spironolactone 25 Mg Tablet PO 25 mg DAILY EUSEBIO Administration Protocol Time Spent With Patient Time: Total time spent is greater than 50% in coordination of care (as documented) at patient's floor/unit and/or counseling patient: Time with patient: less than 15 minutes
--- NOTE | 2020-12-01 12:50 | HO.PM.IMPN ---
Subjective Subjective Date of Service: 12/01/20 Interval History: Patient being followed for generalized edema, patient feels he is getting better, is mostly in bed since admission, denies chest pain, denies shortness of breath, at baseline was walking holding on to objects. Review of Systems Review of Systems General weakness, no headache, no dizziness, no fever chills. CVS no chest pain, no palpitation. Respiratory no sob, no cough. Gastrointestinal no nausea, no vomiting, no abdominal pain Physical Exam Vital Signs: Vital Signs: Last Vital Signs Temp 97.5 F 12/01/20 08:00 Pulse 88 12/01/20 09:02 Resp 18 12/01/20 08:00 BP 100/63 12/01/20 09:02 Pulse Ox 99 12/01/20 08:00 Body Mass Index 22.1 Const: Other: General patient resting comfortably,no acute distress, edema to back and lower extremities improving. Neck is supple no JVD. CVS irregular Respiratory lungs clear to auscultation, no respiratory distress. Gastrointestinal abdomen soft, nontender, bowel sounds audible Extremities significant left upper extremity edema, less scrotal edema and generalized edema Neuro moving all 4 extremity speech clear. Skin no rash Objective Data Current Medications Generic Name Dose Route Start Last Admin Trade Name Freq PRN Reason Stop Dose Admin Acetaminophen 325 mg 11/29/20 17:21 11/29/20 18:28 Acetaminophen 325 Mg Tablet PO 325 mg Q6H PRN Administration Pain, Mild (Pain Scale 1-3) Bumetanide 3 mg 12/01/20 17:00 Bumetanide 1 Mg Tablet PO BID@0800,1700 [facility] Protocol Ferrous Sulfate 324 mg 11/25/20 12:00 12/01/20 12:14 Ferrous Sulfate 324 Mg Tablet. PO 324 mg TIDWM [facility] Administration Guaifenesin 5 ml 11/20/20 10:44 11/21/20 00:01 Guaifenesin 100 Mg/5 Ml Liquid PO 5 ml Q6H PRN Administration Cough Levothyroxine Sodium 50 mcg 11/20/20 06:00 12/01/20 06:24 Levothyroxine Sodium 50 Mcg Tablet PO 50 mcg DAILY@0600 [facility] Administration Magnesium Oxide 400 mg 11/28/20 17:30 12/01/20 09:02 Magnesium Oxide 400 Mg Tablet PO 400 mg BIDPC EUSEBIO Administration Potassium Chloride 40 meq 11/27/20 09:00 12/01/20 09:02 Potassium Chloride Er 20 Meq Tab.Er.Prt PO 40 meq DAILY EUSEBIO Administration Potassium Chloride 20 meq 11/29/20 16:00 12/01/20 09:02 Potassium Chloride Er 20 Meq Tab.Er.Prt PO 20 meq DAILY EUSEBIO Administration Sodium Chloride 3 ml 11/20/20 00:00 12/01/20 09:02 0.9 % Sodium Chloride Flush 3 Ml Syringe IVFLUSH 3 ml QSHIFT EUSEBIO Administration Spironolactone 25 mg 11/25/20 09:00 12/01/20 09:02 Spironolactone 25 Mg Tablet PO 25 mg DAILY EUSEBIO Administration Protocol Labs CBC & Chem 7: 12/01/20 06:01 12/01/20 06:01 Microbiology Microbiology Results: Microbiology 11/30/20 06:40 Blood - Venous Blood Culture - Preliminary No growth after 24 hours. 11/30/20 06:40 Blood - Venous Blood Culture - Preliminary No growth after 24 hours. 11/19/20 11:05 Blood - Venous Blood Culture - Final No growth after 5 days. 11/19/20 10:58 Blood - Venous Blood Culture - Final No growth after 5 days. Assessment and Plan (1) Thrombocytopenia: Status: Acute (2) Anasarca: Status: Acute (3) Hyponatremia: Status: Acute (4) Pulmonary HTN: Status: Acute (5) Acute on chronic right-sided congestive heart failure: Status: Acute (6) Acute pericardial effusion: Status: Acute (7) Acute on chronic right heart failure: Status: Acute (8) Rheumatic mitral stenosis: Status: Acute Assessment and Plan: 60M presented with anasarca Acute on chronic right-sided congestive heart failure due to severe rheumatic mitral stenosis complicated by acute kidney injury, oliguria, and pericardial effusion Patient responded well to IV Bumex drip, currently on metolazone 5 mg, and Bumex iv 3 mg b.i.d. and Aldactone 25 mg by mouth had a diuretic holiday yesterday is 16 L negative since admit. Noted to have significant improvement in generalized edema, will recommend out of bed to chair follow electrolytes closely while being diuresed aggressively Will DC Alegre catheter Change diuretics to by mouth Bumex 3 mg b.i.d. metolazone 2.5 mg Wednesday and Wednesday and continue Aldactone Need close outpatient BMP follow up Keep left arm elevated prognosis is guarded. Consult physical therapy due to weak Acute on chronic anemia Patient noted to have drop in hematocrit to 23.3 on 11/30/20 1 unit of packed RBC given repeat hematocrit today is 28.4 recent iron studies suggestive of anemia of chronic disease Hypokalemia/hypomagnesemia due to diuresis improved, magnesium 1.7 and stable potassium follow BMP daily. Mag oxide 400 mg b.i.d. and potassium 60 meq daily Acute kidney injury in the setting of decompensated right heart failure due to type 1 cardiorenal syndrome and severe mitral stenosis Renal function normalized, will follow BMP closely. Being followed by Nephrology they recommend to continue diuresis Hypothermia resolved likely due to hypothyroidism. New onset hypothyroidism Continue Synthroid, repeat TSH improving down to 11.36 from 22.39. afib with mitral stenosis On coumadin, INR trended down to 2.9, Coumadin on hold follow PT INR closely, resume Coumadin once INR below 2.5. Stable ventricular rate. Was on metoprolol 12.5 mg and digoxin 0.125 mg daily due to low blood pressure hold metoprolol and resume digoxin Thrombocytopenia, platelet improved .
[2020-12-01] MEDS: Digoxin 0.125 MG TABLET PO (13:39)
--- NOTE | 2020-12-01 15:08 | PM.PNNEP ---
Subjective Subjective Date of Service: 12/01/20 Principal diagnosis: Congestive heart failure Interval history: Events noted. Lying flat without dyspnea Physical Exam Vital Signs: Vital Signs: Last Vital Signs Temp 97.5 F 12/01/20 08:00 Pulse 89 12/01/20 13:39 Resp 20 12/01/20 12:00 BP 120/89 12/01/20 12:00 Pulse Ox 100 12/01/20 12:00 Body Mass Index 22.1 Const: General: cooperative Orientation/consciousness: oriented to person Eyes: General: appearance normal, both eyes and all related structures Neck: Neck: Yes no JVD Resp: Auscultation: diminished lung sounds Cardio: Jugular venous distension: no JVD Heart sounds: no rubs GI: Inspection: Yes normal to inspection Auscultation: normal bowel sounds Neuro: General: oriented to person Motor exam (neuro): no asterixis Objective Data Labs CBC & Chem 7: 12/01/20 06:01 12/01/20 06:01 Labs: Laboratory Results - last 24 hr 11/30/20 11/30/20 11/30/20 15:01 16:32 20:40 WBC RBC Hgb Hct MCV MCH MCHC RDW Plt Count MPV Immature Gran % (Auto) Neut % (Auto) Lymph % (Auto) [place] % (Auto) Eos % (Auto) Baso % (Auto) Lymph # (Auto) [place] # (Auto) Eos # (Auto) Baso # (Auto) Abs Immat Gran (auto) Absolute Neuts (auto) Absolute Nucleated RBC Nucleated RBC % (auto) Smear Tech's Comments PT 34.6 H INR 2.9 H Sodium Potassium Chloride Carbon Dioxide Anion Gap BUN Creatinine Estim Creat Clear Calc Estimated GFR POC Glucose 98 125 H Random Glucose Calcium Magnesium 12/01/20 12/01/20 06:01 06:01 WBC 7.5 RBC 4.49 L Hgb 9.5 L D Hct 28.4 L D MCV 63.3 L MCH 21.2 L MCHC 33.5 RDW 24.5 H Plt Count 109 L D MPV TNP Immature Gran % (Auto) 0.3 Neut % (Auto) 65.2 Lymph % (Auto) 11.7 L [place] % (Auto) 13.6 H Eos % (Auto) 8.8 H Baso % (Auto) 0.4 Lymph # (Auto) 0.9 L [place] # (Auto) 1.0 Eos # (Auto) 0.7 H Baso # (Auto) 0.0 Abs Immat Gran (auto) 0.02 Absolute Neuts (auto) 4.9 Absolute Nucleated RBC 0.070 H Nucleated RBC % (auto) 0.9 H Smear Tech's Comments VERIFIED PT INR Sodium 128 L Potassium 3.6 Chloride 87 L Carbon Dioxide 28 Anion Gap 17 BUN 24 H Creatinine 0.83 Estim Creat Clear Calc 90.8 Estimated GFR > 60 POC Glucose Random Glucose 75 Calcium 8.4 Magnesium 1.7 Microbiology Microbiology Results: Microbiology 11/30/20 06:40 Blood - Venous Blood Culture - Preliminary No growth after 24 hours. 11/30/20 06:40 Blood - Venous Blood Culture - Preliminary No growth after 24 hours. 11/19/20 11:05 Blood - Venous Blood Culture - Final No growth after 5 days. 11/19/20 10:58 Blood - Venous Blood Culture - Final No growth after 5 days. Assessment & Plan Assessment and plan (1) RUDY (acute kidney injury): Problem details: 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 patient with severe mitral stenosis Still with hyponatremia REC continue spironolactone agree with bumetanide and continue to diurese Watch pNa; Restrict PO water intake follow kidney function and electrolytes Status: Acute Time Spent With Patient Time: Total time spent is greater than 50% in coordination of care (as documented) at patient's floor/unit and/or counseling patient:
[2020-12-01] MEDS: Bumetanide 1 MG TABLET 3 MG PO (16:42)
[2020-12-02] VITALS (10 sets, daily range): BP systolic 108–132; BP diastolic 66–98; PULSE 58–126; RESP 16–20; TEMP 35.4–36.8; O2SAT 99; BMI 21.0
[2020-12-02 07:07] LABS: INTERNATIONAL NORM RATIO 2.2 (0.9-1.1); Prothrombin Time 26.4 SEC (10.8-13.0)
[2020-12-02 07:08] LABS: Anion Gap 18 (12-20); Blood Urea Nitrogen 22 mg/dL (9-16); Calcium 8.4 mg/dL (8.4-10.2); Carbon Dioxide 27 mmol/L (22-29); Chloride 86 mmol/L (96-108); Creatinine Clr Calc Pharmacy 86.3; Estimated Glomerular Filt Rate > 60; Glucose Random 104 mg/dL (60-115); Potassium 4.2 mmol/l (3.3-5.1); Sodium 127 mmol/L (135-145)
[2020-12-02] MEDS: Bumetanide 1 MG TABLET 3 MG PO ×2 (08:33→18:05)
[2020-12-02] MEDS: Digoxin 0.125 MG TABLET PO (08:33)
[2020-12-02] MEDS: Spironolactone 25 MG TABLET PO (08:34)
[2020-12-02] MEDS: Magnesium Oxide 400 MG TABLET PO ×2 (08:34→18:05)
[2020-12-02] MEDS: Ferrous Sulfate 324 MG TABLET.DR PO ×3 (08:34→18:05)
[2020-12-02] MEDS: 0.9 % Sodium Chloride Flush 3 ML SYRINGE IVFLUSH ×3 (08:35→23:44)
[2020-12-02] MEDS: Potassium Chloride ER 20 MEQ TAB.ER.PRT PO (08:35)
[2020-12-02] MEDS: Potassium Chloride ER 20 MEQ TAB.ER.PRT 40 MEQ PO (08:35)
[2020-12-02] MEDS: metOLazone 2.5 MG TABLET PO (11:58)
[2020-12-02] MEDS: Levothyroxine Sodium 50 MCG TABLET PO (11:58)
--- NOTE | 2020-12-02 12:47 | P.PNIM_ITS ---
Subjective Subjective Date of Service: 12/02/20 Interval History: weak Cardiovascular Cardiovascular: Reports no additional cardiovascular complaints Genitourinary Genitourinary: Reports no additional male genitourinary complaints Physical Exam Vital Signs: Vital Signs: Last Vital Signs Temp 98.2 F 12/02/20 12:00 Pulse 98 12/02/20 12:00 Resp 18 12/02/20 12:00 BP 125/66 12/02/20 12:00 Pulse Ox 99 12/02/20 12:00 Body Mass Index 21.0 General: alert, edema much better, no acute distress Resp: CTA bilateral CVS: S1,S2,RRR GI: soft, non tender, non distended Neuro: motor grossly intact Psych: appropriate affect Objective Data Current Medications Generic Name Dose Route Start Last Admin Trade Name Freq PRN Reason Stop Dose Admin Acetaminophen 325 mg 11/29/20 17:21 11/29/20 18:28 Acetaminophen 325 Mg Tablet PO 325 mg Q6H PRN Administration Pain, Mild (Pain Scale 1-3) Bumetanide 3 mg 12/01/20 17:00 12/02/20 08:33 Bumetanide 1 Mg Tablet PO 3 mg BID@0800,1700 [facility] Administration Protocol Digoxin 0.125 mg 12/01/20 13:00 12/02/20 08:33 Digoxin 0.125 Mg Tablet PO 0.125 mg DAILY EUSEBIO Administration Ferrous Sulfate 324 mg 11/25/20 12:00 12/02/20 11:58 Ferrous Sulfate 324 Mg Tablet. PO 324 mg TIDWM EUSEBIO Administration Guaifenesin 5 ml 11/20/20 10:44 11/21/20 00:01 Guaifenesin 100 Mg/5 Ml Liquid PO 5 ml Q6H PRN Administration Cough Levothyroxine Sodium 50 mcg 11/20/20 06:00 12/02/20 11:58 Levothyroxine Sodium 50 Mcg Tablet PO 50 mcg DAILY@0600 [facility] Administration Magnesium Oxide 400 mg 11/28/20 17:30 12/02/20 08:34 Magnesium Oxide 400 Mg Tablet PO 400 mg BIDPC EUSEBIO Administration Metolazone 2.5 mg 12/02/20 09:00 12/02/20 11:58 Metolazone 2.5 Mg Tablet PO 2.5 mg MoWeFr@0900 [facility] Administration Potassium Chloride 40 meq 11/27/20 09:00 12/02/20 08:35 Potassium Chloride Er 20 Meq Tab.Er.Prt PO 40 meq DAILY [facility]SE[facility] Administration Potassium Chloride 20 meq 11/29/20 16:00 12/02/20 08:35 Potassium Chloride Er 20 Meq Tab.Er.Prt PO 20 meq DAILY EUSEBIO Administration Sodium Chloride 3 ml 11/20/20 00:00 12/02/20 08:35 0.9 % Sodium Chloride Flush 3 Ml Syringe IVFLUSH 3 ml QSHIFT [facility]SEBIO Administration Spironolactone 25 mg 11/25/20 09:00 12/02/20 08:34 Spironolactone 25 Mg Tablet PO 25 mg DAILY EUSEBIO Administration Protocol Labs CBC & Chem 7: 12/01/20 06:01 12/02/20 05:41 Microbiology Microbiology Results: Microbiology 11/30/20 06:40 Blood - Venous Blood Culture - Preliminary No growth after 48 hours. 11/30/20 06:40 Blood - Venous Blood Culture - Preliminary No growth after 48 hours. 11/19/20 11:05 Blood - Venous Blood Culture - Final No growth after 5 days. 11/19/20 10:58 Blood - Venous Blood Culture - Final No growth after 5 days. Assessment and Plan (1) RUDY (acute kidney injury): Problem details: 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 patient with severe mitral stenosis Still with hyponatremia REC continue spironolactone agree with bumetanide and continue to diurese Watch pNa; Restrict PO water intake follow kidney function and electrolytes Status: Acute Assessment and Plan: 60M presented with anasarca Acute on chronic right-sided congestive heart failure due to severe rheumatic mitral stenosis complicated by acute kidney injury, oliguria, and pericardial effusion Patient responded well to IV Bumex drip, currently on metolazone 5 mg, and Bumex iv 3 mg b.i.d. and Aldactone 25 mg by mouth had a diuretic holiday 2 days back is 16 L negative since admit. dced Alegre catheter and urinating Change diuretics to by mouth Bumex 3 mg b.i.d. metolazone 2.5 mg Wednesday and Wednesday and continue Aldactone Need close outpatient BMP follow up Keep left arm elevated prognosis is guarded. improving, if stable likely dc tomorrow Acute kidney injury in the setting of decompensated right heart failure due to type 1 cardiorenal syndrome and severe mitral stenosis Renal function normalized, will follow BMP closely. Being followed by Nephrolog y they recommend to continue diuresis Hypothermia resolved likely due to hypothyroidism. New onset hypothyroidism Continue Synthroid, repeat TSH improving down to 11.36 from 22.39. afib with mitral stenosis On coumadin, INR trended down to 2.9, Coumadin on hold follow PT INR closely, resume Coumadin once INR below 2.5. Stable ventricular rate. Was on metoprolol 12.5 mg and digoxin 0.125 mg daily due to low blood pressure hold metoprolol and resume digoxin Thrombocytopenia, platelet improved .
--- NOTE | 2020-12-02 15:13 | MHC.CM.PN ---
pt to be dcd 12/03 will go home with family
[2020-12-02 15:17] LABS: Anti Nuclear Antibody Screen NEGATIVE (NEGATIVE)
--- NOTE | 2020-12-02 17:05 | PM.PNNEP ---
Subjective Subjective Date of Service: 12/02/20 Principal diagnosis: Congestive heart failure Interval history: Feels improved but weak Physical Exam Vital Signs: Vital Signs: Last Vital Signs Temp 97.1 F 12/02/20 16:00 Pulse 99 12/02/20 16:00 Resp 20 12/02/20 16:00 BP 125/66 12/02/20 16:00 Pulse Ox 99 12/02/20 16:00 Body Mass Index 21.0 Const: General: awake Orientation/consciousness: patient oriented x3 Neck: Neck: Yes supple Resp: Auscultation: diminished lung sounds Cardio: Rate: regular rate GI: Palpation (GI): Soft to palpation Neuro: General: patient oriented x3 Objective Data Labs CBC & Chem 7: 12/01/20 06:01 12/02/20 05:41 Labs: Laboratory Results - last 24 hr 11/27/20 12/02/20 12/02/20 13:15 05:41 05:41 PT 26.4 H D INR 2.2 H Sodium 127 L Potassium 4.2 Chloride 86 L Carbon Dioxide 27 Anion Gap 18 BUN 22 H Creatinine 0.83 Estim Creat Clear Calc 86.3 Estimated GFR > 60 Random Glucose 104 D Calcium 8.4 CELI Screen NEGATIVE Microbiology Microbiology Results: Microbiology 11/30/20 06:40 Blood - Venous Blood Culture - Preliminary No growth after 48 hours. 11/30/20 06:40 Blood - Venous Blood Culture - Preliminary No growth after 48 hours. 11/19/20 11:05 Blood - Venous Blood Culture - Final No growth after 5 days. 11/19/20 10:58 Blood - Venous Blood Culture - Final No growth after 5 days. Assessment & Plan Assessment and plan (1) RUDY (acute kidney injury): Problem details: 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 patient with severe mitral stenosis Hyponatremia improved; C/W diuresis/supportive care Status: Acute Time Spent With Patient Time: Total time spent is greater than 50% in coordination of care (as documented) at patient's floor/unit and/or counseling patient:
[2020-12-02] MEDS: Acetaminophen 325 MG TABLET PO (18:09)
--- NOTE | 2020-12-02 22:41 | PC.NURSE ---
Pt has rectal temp 95.7 at 2100. Warming blanket already ordered and in room, placed on pt. Rectal temp at 2230 96.3, will continue to monitor rectal temps, all other vital signs stable.
[2020-12-03 03:50] VITALS: BP 104/54; PULSE 81; RESP 18; TEMP 36.9; O2SAT 97
[2020-12-03 05:27] VITALS: BMI 20.8
[2020-12-03] MEDS: Levothyroxine Sodium 50 MCG TABLET PO (05:45)
[2020-12-03 07:38] LABS: Anion Gap 22 (12-20); Blood Urea Nitrogen 22 mg/dL (9-16); Calcium 8.2 mg/dL (8.4-10.2); Carbon Dioxide 26 mmol/L (22-29); Chloride 85 mmol/L (96-108); Creatinine Clr Calc Pharmacy 75.2; Estimated Glomerular Filt Rate > 60; Glucose Fasting 41 mg/dL (60-99); Potassium 4.7 mmol/l (3.3-5.1); Sodium 128 mmol/L (135-145)
[2020-12-03 07:48] VITALS: BP 107/63; PULSE 99; RESP 18; TEMP 36.6; O2SAT 100
[2020-12-03] MEDS: Potassium Chloride ER 20 MEQ TAB.ER.PRT PO (08:17)
[2020-12-03] MEDS: Potassium Chloride ER 20 MEQ TAB.ER.PRT 40 MEQ PO (08:17)
[2020-12-03 08:18] VITALS: PULSE 98
[2020-12-03] MEDS: Bumetanide 1 MG TABLET 3 MG PO (08:18)
[2020-12-03] MEDS: Digoxin 0.125 MG TABLET PO (08:18)
[2020-12-03 08:19] VITALS: BP 107/63; PULSE 99
[2020-12-03] MEDS: Ferrous Sulfate 324 MG TABLET.DR PO (08:19)
[2020-12-03] MEDS: Spironolactone 25 MG TABLET PO (08:19)
[2020-12-03] MEDS: Magnesium Oxide 400 MG TABLET PO (08:19)
[2020-12-03] MEDS: 0.9 % Sodium Chloride Flush 3 ML SYRINGE IVFLUSH (08:19)
--- NOTE | 2020-12-03 09:56 | PM.PNNEP ---
Subjective Subjective Date of Service: 12/03/20 Principal diagnosis: Congestive heart failure Interval history: Events noted. All recent data reviewed Physical Exam Vital Signs: Vital Signs: Last Vital Signs Temp 97.8 F 12/03/20 07:48 Pulse 99 12/03/20 08:19 Resp 18 12/03/20 07:48 BP 107/63 12/03/20 08:19 Pulse Ox 100 12/03/20 07:48 Body Mass Index 20.8 Const: General: comfortable Orientation/consciousness: patient oriented x3 Neck: Neck: Yes supple Resp: Auscultation: diminished lung sounds Cardio: Heart sounds: no rubs Neuro: General: patient oriented x3 Objective Data Labs CBC & Chem 7: 12/01/20 06:01 12/03/20 05:43 Labs: Laboratory Results - last 24 hr 11/27/20 12/03/20 13:15 05:43 Sodium 128 L Potassium 4.7 Chloride 85 L Carbon Dioxide 26 Anion Gap 22 H BUN 22 H Creatinine 0.94 Estim Creat Clear Calc 75.2 Estimated GFR > 60 Fasting Glucose 41 L* Calcium 8.2 L CELI Screen NEGATIVE Microbiology Microbiology Results: Microbiology 11/30/20 06:40 Blood - Venous Blood Culture - Preliminary No growth after 48 hours. 11/30/20 06:40 Blood - Venous Blood Culture - Preliminary No growth after 48 hours. 11/19/20 11:05 Blood - Venous Blood Culture - Final No growth after 5 days. 11/19/20 10:58 Blood - Venous Blood Culture - Final No growth after 5 days. Assessment & Plan Assessment and plan (1) RUDY (acute kidney injury): Problem details: 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 patient with severe mitral stenosis Hyponatremia improved/stable; C/W diuresis/supportive care Shall arrange follow up when D/[place] Status: Acute Time Spent With Patient Time: Total time spent is greater than 50% in coordination of care (as documented) at patient's floor/unit and/or counseling patient:
--- NOTE | 2020-12-03 10:32 | PM.DS ---
DS: Providers Provider Date of admission: 11/19/20 17:27 Primary care physician: Unknown Physician Consults: 11/19/20 18:52 Consult to Cardiology Routine Consulting Provider: Kobe Melo Reason for consultation: chf Consult to Nephrology Routine Consulting Provider: Yoon Barcenas Reason for consultation: rudy, anuric, chf 11/27/20 15:47 Consult to Hematology / Oncology Routine Consulting Provider: Lulú Nelson Reason for consultation: anemia thrombocytopenia DS: Diagnosis Discharge Diagnosis (1) RUDY (acute kidney injury): Status: Acute Problem details: 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 patient with severe mitral stenosis Hyponatremia improved/stable; C/W diuresis/supportive care Shall arrange follow up when D/Maicol (2) Right heart failure: Status: Deleted (3) Anasarca: Status: Acute (4) Hyponatremia: Status: Acute (5) Pulmonary HTN: Status: Acute (6) Right heart failure (secondary to left heart failure): Status: Acute (7) Acute on chronic right-sided congestive heart failure: Status: Acute (8) Hypothermia: Status: Acute (9) Acute pericardial effusion: Status: Acute (10) Persistent atrial fibrillation: Status: Acute (11) Rheumatic mitral stenosis: Status: Deleted (12) Severe mitral valve stenosis: Status: Acute (13) Medical non-compliance: Status: Acute DS: Medications Discharge Medications Home Medications: Home Medications Medication Instructions Recorded Confirmed digoxin [Digitek] 125 mcg PO DAILY 09/12/20 11/19/20 omeprazole 40 mg PO DAILY 09/12/20 11/19/20 risperidone 2 mg PO BID 09/12/20 11/19/20 clotrimazole 1 appl TOPICAL BID 11/04/20 11/19/20 warfarin 7.5 mg PO DAILY 11/20/20 11/20/20 Previous Rx's Medication Instructions Recorded cetirizine 10 mg PO DAILY #30 tab 10/08/20 epinephrine [EpiPen 2-Sumeet] 0.3 mg IM Q10M PRN #2 ea 10/08/20 metoprolol succinate 12.5 mg PO DAILY #15 tab 10/08/20 bumetanide 3 mg PO BID@0800,1700 #60 tab 11/09/20 magnesium oxide 800 mg PO DAILY #30 tab 11/09/20 potassium chloride [Klor-Con M20] 20 meq PO BID #60 tab 11/09/20 levothyroxine 50 mcg PO DAILY@0600 #30 tab 12/03/20 metolazone 2.5 mg PO MoWeFr@0900 #30 tab 12/03/20 DS: Summary Hospital Course Hospital Course: Patient was admitted for acute on chronic right-sided heart failure due to severe mitral stenosis complicated by cardiorenal type 1 with acute kidney injury and oliguria, complicated by hypothermia and hyponatremia and hypotension. Also noted to bed hypothyroid. Patient was diuresed with IV continuous Bumex. He was started on Synthroid. His renal function improved with diuresis, his anasarca improved with diuresis. His hypothermia and hyponatremia resolved. Patient's disease is very advanced and non curable. Patient's guardian, his brother, is aware. He is currently optimized and will be discharged home on Bumex 3 mg b.i.d. and metolazone 3 times per week, but is expected to continue to have recurrent admissions until end of life. Time Spent with Patient Time attestation: Total time spent providing and/or coordinating discharge services: Physical Exam Vital Signs: Vital Signs: Last Vital Signs Temp 97.8 F 12/03/20 07:48 Pulse 99 12/03/20 08:19 Resp 18 12/03/20 07:48 BP 107/63 12/03/20 08:19 Pulse Ox 100 12/03/20 07:48 Body Mass Index 20.8 DS: Data Data Completed and Pending Labs on day of discharge: 11/19/20 10:15 Insert/maintain urinary catheter NOW 11/19/20 10:16 ECG 12 lead EKG Stat EKG Documentation DIRECTED 11/19/20 10:24 CT abdomen pelvis wo con Stat CT chest wo con Stat CT head/brain wo con Stat 11/19/20 10:53 Bumetanide [Bumex] 2 mg IVPUSH ONCE ONE 11/19/20 10:56 B Type Natriuretic Peptide Stat Lactic Acid Stat Troponin-I High Sensitivity Stat 11/19/20 10:57 Procalcitonin Stat 11/19/20 10:58 Cortisol Routine Ethanol Stat 11/19/20 10:59 Ammonia Stat Basic Metabolic Panel Stat Complete Blood Count Auto Diff Stat Digoxin Stat Free T4 (Free Thyroxine) Stat Lactate Dehydrogenase Stat Lipase Stat Liver Panel Stat Magnesium Stat Partial Thromboplastin Time Stat Prothrombin Time INR Stat SLIDE REVIEW Stat TSH reflex Free T4 Stat 11/19/20 11:00 Albumin Human 25 % [Kedbumin 25 %] 50 ml IV ONCE 11/19/20 11:05 SARS-CoV2/FLU/RSV Stat Blood Culture X2 [BC] Stat 11/19/20 11:14 cefTRIAXone sodium [Rocephin] 1 gm 0.9 % Sodium Chloride [Ns] 50 ml IV ONCE 11/19/20 11:25 cefTRIAXone sodium [Rocephin] 1 gm .ROUTE .STK-MED ONE 11/19/20 11:43 COVID-19 ID NOW (Covarrubias) Stat 11/19/20 12:00 Venous Blood Gas Stat 11/19/20 12:15 Albumin Human 25 % [Kedbumin 25 %] 100 ml IV Q1H 11/19/20 12:53 Add Laboratory Test Stat 11/19/20 13:00 Container,Empty 0 ml Bumetanide [Bumex] 25 mg IVCONT 1 mg/hr 11/19/20 13:16 Levothyroxine Sodium [Synthroid] 37.5 mcg IVPUSH ONCE ONE 11/19/20 15:03 ~Lactic Acid-LAB USE ONLY Stat 11/19/20 16:20 Chlorothiazide Sodium [Diuril] 500 mg IVPUSH ONCE ONE 11/19/20 16:39 Basic Metabolic Panel Stat 11/19/20 17:23 Transfer Order Routine 11/19/20 17:24 Code Status Routine 11/19/20 18:52 Intake and Output QSHIFTE Vital Signs Q4HR 11/19/20 21:09 Glucose, Whole Blood Routine 11/19/20 21:36 Glucose, Whole Blood Routine 11/19/20 23:47 Glucose, Whole Blood Routine 11/20/20 05:38 Basic Metabolic Panel DAILY@0600 Complete Blood Count Auto Diff DAILY@0600 Prothrombin Time INR DAILY@0600 SLIDE REVIEW Routine 11/20/20 10:40 CDiff with Reflex to PCR Routine 11/20/20 12:53 CA echo limited Stat 11/21/20 05:26 BMP [Basic Metabolic Panel Fasting] Routine Complete Blood Count Auto Diff Routine Prothrombin Time INR DAILY@0600 SLIDE REVIEW Routine 11/21/20 07:50 Glucose, Whole Blood Routine 11/21/20 18:00 Warfarin Sodium [Coumadin] 5 mg PO DAILY@1800 11/22/20 05:49 BMP [Basic Metabolic Panel Fasting] Routine Complete Blood Count Auto Diff Routine Ferritin Routine IRON PROFILE Routine Prothrombin Time INR DAILY@0600 SLIDE REVIEW Routine 11/22/20 07:49 Glucose, Whole Blood Routine 11/22/20 08:14 Glucose, Whole Blood Routine 11/22/20 08:16 Potassium Chloride ER [Klor-con] 40 meq PO ONCE ONE 11/22/20 09:18 Glucose, Whole Blood Routine 11/22/20 16:17 Midodrine HCl [ProAmatine] 5 mg PO ONCE ONE 11/22/20 18:03 Add Laboratory Test Urgent 11/23/20 05:02 BMP [Basic Metabolic Panel Fasting] Routine Complete Blood Count Auto Diff Routine Magnesium Routine Prothrombin Time INR DAILY@0600 SLIDE REVIEW Routine 11/24/20 06:20 BMP [Basic Metabolic Panel Fasting] Routine Prothrombin Time INR DAILY@0600 11/24/20 07:48 Potassium Chloride ER [Klor-con] 40 meq PO ONCE ONE 11/24/20 23:45 Container,Empty 0 ml Bumetanide [Bumex] 25 mg IVCONT 1 mg/hr 11/25/20 05:55 BMP [Basic Metabolic Panel Fasting] Routine Complete Blood Count Auto Diff Routine Magnesium Routine Prothrombin Time INR DAILY@0600 SLIDE REVIEW Routine 11/25/20 08:17 Magnesium Sulfate/H2O 2 gm in 50 ml IV ONCE 11/25/20 09:00 Potassium Chloride ER [Klor-con] 40 meq PO BID 11/25/20 11:15 Container,Empty 0 ml Bumetanide [Bumex] 25 mg IVCONT 1 mg/hr 11/26/20 06:02 Basic Metabolic Panel Routine Magnesium Routine Prothrombin Time INR DAILY@0600 11/26/20 17:00 Bumetanide [Bumex] 3 mg IVPUSH BIDWM 11/27/20 05:31 Basic Metabolic Panel Routine Lactate Dehydrogenase Routine Magnesium Routine Prothrombin Time INR DAILY@0600 Rheumatoid Factor Routine 11/27/20 06:11 HIV Ab/Ag Routine 11/27/20 13:01 D Dimer Routine Fibrinogen Routine 11/27/20 13:09 Add Laboratory Test Routine 11/27/20 13:15 Type and Screen Routine Complete Blood Count Man Dif Routine Erythrocyte Sedimentation Rate Routine Haptoglobin Routine Immunofixation Pnl, Serum Routine Reticulocyte Count Routine 11/28/20 05:45 Basic Metabolic Panel Routine Complete Blood Count Auto Diff Routine Prothrombin Time INR DAILY@0600 11/28/20 12:34 Magnesium Sulfate/H2O 2 gm in 50 ml IV ONCE 11/28/20 12:45 metOLazone [Zaroxolyn] 5 mg PO DAILY 11/28/20 13:06 Basic Metabolic Panel Routine 11/29/20 05:54 Basic Metabolic Panel Routine Magnesium Routine Prothrombin Time INR DAILY@0600 11/29/20 21:04 Glucose, Whole Blood Routine 11/29/20 21:33 Midodrine HCl [ProAmatine] 5 mg PO ONCE ONE 11/30/20 XR chest 1V Stat 11/30/20 05:55 Basic Metabolic Panel Routine 11/30/20 06:40 Complete Blood Count Auto Diff Stat Lactic Acid Stat SLIDE REVIEW Stat Thyroid Stimulating Hormone Stat 11/30/20 08:13 Red Blood Cells Routine 11/30/20 15:01 Prothrombin Time INR Routine 11/30/20 16:32 Glucose, Whole Blood Routine 11/30/20 20:40 Glucose, Whole Blood Routine 12/01/20 06:01 Basic Metabolic Panel Routine Complete Blood Count Auto Diff Routine Magnesium Routine SLIDE REVIEW Routine 12/02/20 05:41 Basic Metabolic Panel Routine Prothrombin Time INR Routine 12/03/20 05:43 BMP [Basic Metabolic Panel Fasting] Routine Laboratory Last Values WBC 7.5 X10*3/uL (4.8-10.8) 12/01/20 06:01 RBC 4.49 X10*6/uL (4.60-5.80) L 12/01/20 06:01 Hgb 9.5 g/dl (14.0-18.0) L D 12/01/20 06:01 Hct 28.4 % (42-52) L D 12/01/20 06:01 MCV 63.3 fL (80-98) L 12/01/20 06:01 MCH 21.2 pg (27.0-33.0) L 12/01/20 06:01 MCHC 33.5 g/dl (31.0-36.0) 12/01/20 06:01 RDW 24.5 % (11.0-16.0) H 12/01/20 06:01 Plt Count 109 X10*3/uL (160-400) L D 12/01/20 06:01 MPV TNP 12/01/20 06:01 Immature Gran % (Auto) 0.3 % (0.0-0.4) 12/01/20 06:01 Neut % (Auto) 65.2 % (45-73) 12/01/20 06:01 Lymph % (Auto) 11.7 % (20-40) L 12/01/20 06:01 [place] % (Auto) 13.6 % (2-11) H 12/01/20 06:01 Eos % (Auto) 8.8 % (0-4) H 12/01/20 06:01 Baso % (Auto) 0.4 % (0-2) 12/01/20 06:01 Lymph # (Auto) 0.9 X10*3/uL (1.2-4.9) L 12/01/20 06:01 [place] # (Auto) 1.0 X10*3/uL (0.1-1.2) 12/01/20 06:01 Eos # (Auto) 0.7 X10*3/uL (0.0-0.4) H 12/01/20 06:01 Baso # (Auto) 0.0 X10*3/uL (0.0-0.2) 12/01/20 06:01 Abs Immat Gran (auto) 0.02 X10*3/uL (0.00-0.03) 12/01/20 06:01 Absolute Neuts (auto) 4.9 X10*3/uL (2.0-8.3) 12/01/20 06:01 Absolute Nucleated RBC 0.070 X10*3/uL (0.0-0.012) H 12/01/20 06:01 Nucleated RBC % (auto) 0.9 /100WBC (0.0-0.2) H 12/01/20 06:01 Neutrophils % (Manual) 79 % (45-73) H 11/27/20 13:15 Band Neutrophils % 0 % (3-5) L 11/27/20 13:15 Lymphocytes % (Manual) 6 % (20-40) L 11/27/20 13:15 Monocytes % (Manual) 5 % (2-11) 11/27/20 13:15 Eosinophils % (Manual) 7 % (0-4) H 11/27/20 13:15 Basophils % (Manual) 3 % (0-1) H 11/27/20 13:15 Abs Neuts (Manual) 6.1 X10*3/uL (2.2-7.9) 11/27/20 13:15 Lymphocytes # (Manual) 0.5 X10*3/uL (0.6-4.8) L 11/27/20 13:15 Monocytes # (Manual) 0.4 X10*3/uL (0.0-1.2) 11/27/20 13:15 Eosinophils # (Manual) 0.5 X10*3/UL (0.0-0.8) 11/27/20 13:15 Basophils # (Manual) 0.2 X10*3/uL (0.0-0.3) 11/27/20 13:15 Nucleated RBCs 5 /100WBC (0-0) H 11/27/20 13:15 Platelet Estimate DECREASED (NORMAL) 11/27/20 13:15 Large Platelets PRESENT 11/27/20 13:15 Plt Morphology Comment NOTED 11/27/20 13:15 RBC Morphology NOTED 11/27/20 13:15 Polychromasia 1+ 11/27/20 13:15 Hypochromasia 1+ 11/27/20 13:15 Target Cells 2+ 11/27/20 13:15 Ovalocytes 1+ 11/27/20 13:15 Acanthocytes (Spur) 1+ 11/27/20 13:15 Schistocytes 1+ 11/27/20 13:15 Smear Tech's Comments VERIFIED 12/01/20 06:01 Smear Path Review SEE NOTE 11/27/20 13:15 ESR 14 MM/HR (0-15) 11/27/20 13:15 Absolute Retic 0.083 X10*6/uL (0.026-0.095) 11/27/20 13:15 Percent Retic 2.0 % (0.5-1.8) H 11/27/20 13:15 Immature Retic Fraction 22.4 % (2.3-13.4) H 11/27/20 13:15 Retic Hgb Equivalent 22.0 pg (30.0-35.0) L 11/27/20 13:15 Haptoglobin 24 mg/dL (43-212) L 11/27/20 13:15 PT 26.4 SEC (10.8-13.0) H D 12/02/20 05:41 INR 2.2 (0.9-1.1) H 12/02/20 05:41 APTT 49.0 SEC (24.1-38.0) H D 11/19/20 10:59 Fibrinogen 440 MG/DL (259-690) 11/27/20 13:01 D-Dimer 947 NG/ML 11/27/20 13:01 VBG pH 7.36 (7.32-7.43) 11/19/20 12:00 VBG pCO2 39 mmhg 11/19/20 12:00 VBG pO2 107 mmhg 11/19/20 12:00 VBG HCO3 21 mmol/L 11/19/20 12:00 VBG O2 Saturation 97.4 % 11/19/20 12:00 VBG Base Excess -3.7 mmol/L 11/19/20 12:00 Sodium 128 mmol/L (135-145) L 12/03/20 05:43 Potassium 4.7 mmol/l (3.3-5.1) 12/03/20 05:43 Chloride 85 mmol/L (96-108) L 12/03/20 05:43 Carbon Dioxide 26 mmol/L (22-29) 12/03/20 05:43 Anion Gap 22 (12-20) H 12/03/20 05:43 BUN 22 mg/dL (9-16) H 12/03/20 05:43 Creatinine 0.94 mg/dL (0.5-1.4) 12/03/20 05:43 Estim Creat Clear Calc 75.2 12/03/20 05:43 Estimated GFR > 60 12/03/20 05:43 POC Glucose 125 mg/dL (60-115) H 11/30/20 20:40 Random Glucose 104 mg/dL (60-115) D 12/02/20 05:41 Fasting Glucose 41 mg/dL (60-99) L* 12/03/20 05:43 Lactic Acid 1.5 mmol/L (0.5-2.0) 11/30/20 06:40 Lactic Acid Fup @ 2Hr 1.8 mmol/L (0.5-2.0) 11/19/20 15:03 Calcium 8.2 mg/dL (8.4-10.2) L 12/03/20 05:43 Magnesium 1.7 mg/dL (1.6-2.6) 12/01/20 06:01 Iron 24 mcg/dL (45-160) L 11/22/20 05:49 TIBC 326 mcg/dL (228-428) 11/22/20 05:49 % Saturation 7 % (15-50) L 11/22/20 05:49 Unsat Iron Binding 302 ug/dL 11/22/20 05:49 Ferritin 143 ng/mL (20-250) 11/22/20 05:49 Total Bilirubin 5.6 mg/dL (0.0-1.0) H 11/19/20 10:59 Direct Bilirubin 4.1 mg/dL (0.0-0.5) H 11/19/20 10:59 AST 118 U/L (5-37) H 11/19/20 10:59 ALT 67 U/L (0-40) H 11/19/20 10:59 Alkaline Phosphatase 130 U/L (39-117) H 11/19/20 10:59 Ammonia 32 umol/L (13-55) 11/19/20 10:59 Lactate Dehydrogenase 445 U/L (118-273) H 11/27/20 05:31 Troponin I High Sens 20.7 ng/L (<3.5-35.0) 11/19/20 10:56 B-Natriuretic Peptide 1951 pg/mL (<100) H 11/19/20 10:56 Total Protein 6.4 g/dL (6.5-8.0) L 11/19/20 10:59 Albumin 2.7 g/dL (3.5-5.0) L 11/19/20 10:59 Lipase 66 U/L (8-78) 11/19/20 10:59 Procalcitonin 0.52 ng/mL 11/19/20 10:57 TSH 11.36 uIU/mL (0.32-4.0) H 11/30/20 06:40 Free T4 0.95 ng/dL (0.71-1.85) 11/19/20 10:59 Cortisol 16.9 mcg/dL 11/19/20 10:58 Free Cortisol Cancelled 11/19/20 10:59 Urine Color YELLOW 11/19/20 11:42 Urine Appearance HAZY 11/19/20 11:42 Urine pH 5.5 (5.0-8.0) 11/19/20 11:42 Ur Specific [place] 1.015 (1.005-1.025) 11/19/20 11:42 Urine Protein NEG MG/DL (NEG-TRACE) 11/19/20 11:42 Urine Glucose (UA) NEG MG/DL (NEG) 11/19/20 11:42 Urine Ketones NEG MG/DL (NEG) 11/19/20 11:42 Urine Blood 3+ (NEG) H 11/19/20 11:42 Urine Nitrite NEG (NEG) 11/19/20 11:42 Ur Leukocyte Esterase NEG (NEG) 11/19/20 11:42 Urine RBC 15-29 /HPF (0) H 11/19/20 11:42 Urine WBC 0-2 /HPF (0-4) 11/19/20 11:42 Ur Squamous Epith Cells NONE /LPF 11/19/20 11:42 Amorphous Sediment 1+ /LPF 11/19/20 11:42 Urine Bacteria TRACE /LPF 11/19/20 11:42 Hyaline Casts 0-2 /LPF 11/19/20 11:42 Digoxin < 0.3 ng/mL (0.8-2.0) L 11/19/20 10:59 Ethyl Alcohol < 10 mg/dL 11/19/20 10:58 IgG Total 1684 mg/dL (600-1640) H 11/27/20 13:15 IgA Total 686 mg/dL (47-310) H 11/27/20 13:15 IgM 141 mg/dL (50-300) 11/27/20 13:15 HIRA Interpretation SEE NOTE 11/27/20 13:15 Rheumatoid Factor < 15.0 IU/mL (<15.0) 11/27/20 05:31 PEGGY Screen NEGATIVE (NEGATIVE) 11/27/20 13:15 C. difficile Toxin A&B Negative (Negative) 11/20/20 10:40 C. difficile Antigen Negative (Negative) 11/20/20 10:40 C. difficile Interpret SEE NOTE 11/20/20 10:40 Coronavirus (PCR) NEGATIVE (Negative) 11/19/20 11:05 COVID-19 (MATTEO) Negative (Negative) 11/19/20 11:43 COVID-19 Clin Com See Note 11/19/20 11:43 HIV 1&2 Ab/P24 Ag 4thGn Nonreactive (Nonreactive) 11/27/20 06:11 Influenza Type A (PCR) NEGATIVE (Negative) 11/19/20 11:05 Influenza Type B (PCR) NEGATIVE (Negative) 11/19/20 11:05 RSV RNA Qual (PCR) NEGATIVE (Negative) 11/19/20 11:05 Blood Type B Positive 11/27/20 13:15 Antibody Screen NEGATIVE 11/27/20 13:15 Crossmatch See Detail 11/27/20 13:15 Preliminary micro results at discharge 11/30/20 06:40 Blood Culture - Preliminary Blood - Venous No growth after 48 hours. 11/30/20 06:40 Blood Culture - Preliminary Blood - Venous No growth after 48 hours. Discharge Plan Discharge Patient Disposition: Home Health Service Referrals: Peggy Benites MD [Physician] - 1 Week (Please call and call and schedule a follow up appointment within 1 week office closed due to Holiday.) Discharge Medications: New metolazone 2.5 mg Tablet 2.5 mg PO MoWeFr@0900 Qty: 30 RF: 0 levothyroxine 50 mcg Tablet 50 mcg PO DAILY@0600 Qty: 30 RF: 0 Continued clotrimazole 1 % Cream 1 appl TOPICAL BID RF: 0 potassium chloride [Klor-Con M20] 20 mEq Tablet,Er Particles/Crystals 20 meq PO BID Qty: 60 RF: 0 magnesium oxide 400 mg (241.3 mg magnesium) Tablet 800 mg PO DAILY Qty: 30 RF: 0 bumetanide 1 mg Tablet 3 mg PO BID@0800,1700 Qty: 60 RF: 0 omeprazole 40 mg Capsule,Delayed Release(Dr/Ec) 40 mg PO DAILY RF: 0 risperidone 2 mg Tablet 2 mg PO BID RF: 0 digoxin [Digitek] 125 mcg (0.125 mg) Tablet 125 mcg PO DAILY RF: 0 metoprolol succinate 25 mg tablet extended release 24 hr 12.5 mg PO DAILY Qty: 15 RF: 1 cetirizine 10 mg tablet 10 mg PO DAILY Qty: 30 RF: 0 epinephrine [EpiPen 2-Sumeet] 0.3 mg/0.3 mL auto-injector 0.3 mg IM Q10M PRN (Reason: anaphylaxis) Qty: 2 RF: 0 warfarin 7.5 mg Tablet 7.5 mg PO DAILY RF: 0 Discharge Orders: Discharge Order (Routine); Ordered 12/03/20 Ordered By: Mehdi Ortega Diet: advance to usual diet Activity on Discharge: As tolerated Visit Report Forms: Patient Portal Discharge page Care Plan Goals: keep weight down, avoid hospitalization as much as possible, consider palliative care Health Concerns: severe mitral stenosis, right heart failure Plan of Treatment: fluid restrict, salt restrict, continue bumex 3mg twice daily, metolazone 3 times weekly, follow up with Mds.
== END 2020-12-03 14:05 | disposition home health service (06) | DRG 194 ==
LOC: HO.ED 16:27 → HO.IMC 18:04
PROVIDERS: Hospitalist; Internal Medicine; Internal Medicine Medical Oncology; Internal Medicine Nephrology; Physician Assistant; Admitting Provider Internal Medicine; Emergency Provider Emergency Medicine; Visit Provider Internal Medicine
DX: I13.0 Hypertensive heart and chronic kidney disease with heart failure and stage 1 through stage 4 chronic kidney disease, or unspecified chronic kidney disease (principal); N17.9 Acute kidney failure, unspecified; D69.6 Thrombocytopenia, unspecified; I27.29 Other secondary pulmonary hypertension; I48.19 Other persistent atrial fibrillation; E83.42 Hypomagnesemia; I05.0 Rheumatic mitral stenosis; N18.9 Chronic kidney disease, unspecified; I50.813 Acute on chronic right heart failure; E03.9 Hypothyroidism, unspecified; R68.0 Hypothermia, not associated with low environmental temperature; F17.210 Nicotine dependence, cigarettes, uncomplicated; I95.2 Hypotension due to drugs; T50.1X5A Adverse effect of loop [high-ceiling] diuretics, initial encounter; Y92.9 Unspecified place or not applicable; E87.6 Hypokalemia; Z71.6 Tobacco abuse counseling; Z91.14 Patient's other noncompliance with medication regimen; Z20.828 Contact with and (suspected) exposure to other viral communicable diseases; Z87.820 Personal history of traumatic brain injury; Z79.01 Long term (current) use of anticoagulants; Z79.890 Hormone replacement therapy; Z79.899 Other long term (current) drug therapy
CPT/HCPCS: 0241U; 36415; 70450; 71045; 71250; 74176; 80048; 80076; 80162; 80320; 81001; 82140; 82530; 82533; 82728; 82784; 82803; 82947; 83010; 83540; 83605; 83615; 83690; 83735; 83880; 84145; 84439; 84443; 84484; 85007; 85025; 85027; 85045; 85060; 85379; 85384; 85610; 85652; 85730; 86038; 86039; 86334; 86431; 86850; 86900; 86901; 86920; 87040; 87324; 87389; 87449; 87635; 93005; 93308; 96365; 96366; 96375; 97162; 99225; 99232; 99285; 99291; J0696; J1205; J3475; P9016; P9047

== ENCOUNTER 2020-12-11 08:39 | Inpatient (IN) | payer MEDICAID, OTHER, SELFPAY ==
[2020-12-11] VITALS (10 sets, daily range): BP systolic 99–131; BP diastolic 63–86; PULSE 70–97; RESP 14–19; TEMP 33.1–36.8; O2SAT 94–100; BMI 21.4
--- NOTE | 2020-12-11 08:46 | ED_ITS ---
HPI - General Adult General Chief complaint: General Medical Stated complaint: Edema Time Seen by Provider: 12/11/20 08:45 Source: patient Mode of arrival: EMS Limitations: other (Limited mentally) History of Present Illness HPI narrative: Patient not taking his medications comes in for increasing swelling. He is endstage cardiomyopathy Onset (ago): day(s) Location: lower extremity Severity: moderate Associated symptoms: denies other symptoms Related Data Home Medications Medication Instructions Recorded Confirmed digoxin [Digitek] 125 mcg PO DAILY 09/12/20 12/11/20 omeprazole 40 mg PO DAILY 09/12/20 12/11/20 risperidone 2 mg PO BID 09/12/20 12/11/20 clotrimazole 1 appl TOPICAL BID 11/04/20 12/11/20 warfarin 7.5 mg PO DAILY 11/20/20 12/11/20 Previous Rx's Medication Instructions Recorded cetirizine 10 mg PO DAILY #30 tab 10/08/20 epinephrine [EpiPen 2-Sumeet] 0.3 mg IM Q10M PRN #2 ea 10/08/20 metoprolol succinate 12.5 mg PO DAILY #15 tab 10/08/20 bumetanide 3 mg PO BID@0800,1700 #60 tab 11/09/20 magnesium oxide 800 mg PO DAILY #30 tab 11/09/20 potassium chloride [Klor-Con M20] 20 meq PO BID #60 tab 11/09/20 levothyroxine 50 mcg PO DAILY@0600 #30 tab 12/03/20 metolazone 2.5 mg PO MoWeFr@0900 #30 tab 12/03/20 walker #1 ea 12/03/20 Allergies Allergy/AdvReac Type Severity Reaction Status Date / Time Fish Containing Products Allergy Unknown UNKNOWN Verified 09/12/20 07:09 PEPPERS, JALAPENO Allergy Unknown UNKNOWN Uncoded 09/12/20 07:09 Review of Systems Review of Systems: Patient able to state that he is swelling with back, leg and abdominal pain Yes all other systems are reviewed and are negative and Unobtainable due to mental status Neurologic: Denies Sensory deficit (Neuro) [facility] Past Medical History Medical History Acute retention of urine Afib CHF (congestive heart failure) Hepatic encephalopathy Persistent atrial fibrillation Quit consuming alcohol in remote past Schizophrenia Severe mitral valve stenosis Traumatic brain injury Family History Family History Father No problems noted. Mother HTN (hypertension) Social History Social History Household Members: Family Housing: House Alcohol intake: never Smoking Status: Never smoker service: No Current occupational status: unemployed Physical Exam Vital Signs: Vital Signs: Last Vital Signs Temp 98.5 F 12/15/20 11:56 Pulse 93 12/15/20 11:56 Resp 20 12/15/20 11:56 BP 102/62 12/15/20 11:56 Pulse Ox 99 12/15/20 11:56 Body Mass Index 21.4 Const: Other: chronically ill appearing Nutritional Appearance: cachectic Orientation/consciousness: oriented to person and patient oriented x3 Limitations: no limitations HENMT: Head: Yes normal to inspection Ears: external ears normal General nose exam: Normal external nose present Mouth: Normal oral and palatal mucosa present and oropharynx normal Throat: Yes posterior oropharynx normal Eyes: Other: jaundiced General: appearance normal, both eyes and all related structures Neck: Other: supple, jvd Neck: Yes normal visual inspection Chest: Chest palpation & inspection: normal inspection of the chest Resp: Auscultation: clear to auscultation bilaterally Cardio: Jugular venous distension: no JVD Rate: Other (irregular rate and rhythm) Heart sounds: S1 normal heart sound present and S2 normal heart sound present GI: Other: edema to abdomen Inspection: Yes normal to inspection Palpation (GI): Soft to palpation, nontender and No hepatosplenomegaly present Auscult ation: normal bowel sounds : General: Yes no CVA tenderness Back/Spine/Pelvis: Back: no CVA tenderness Skin: General skin exam: no rashes or lesions noted Neuro: General: oriented to person and patient oriented x3 Cranial nerves: Yes CN's II-XII intact bilaterally Motor exam (neuro): 5/5 motor strength present throughout Sensory Exam: No Sensory deficit (Neuro) Extrem: Other: chronic edema with skin changes to lower extremities, hard skin changes Psych: Appearance: grossly normal Course Course Course Narrative: temperature 91, will send blood CX, UA, and CXR. will give a dose of thyroxine Medical Decision Making [facility] Narrative Medical decision making narrative: patient the same episode a few weeks ago, jaramillo cultured, no source of infection, my impression from prior visit is the patient is severly hypothyroid, with renal failure Differential Diagnosis Differential Diagnosis: renal failure, hypothyroidism, sepsis, Lab Data Result diagrams: 12/11/20 10:15 12/15/20 04:54 Labs: Lab Results 12/11/20 12/11/20 12/11/20 Range/Units 10:15 10:15 10:15 WBC 5.1 (4.8-10.8) X10*3/uL RBC 4.20 L (4.60-5.80) X10*6/uL Hgb 9.1 L (14.0-18.0) g/dl Hct 27.1 L (42-52) % MCV 64.5 L (80-98) fL MCH 21.7 L (27.0-33.0) pg MCHC 33.6 (31.0-36.0) g/dl RDW 24.3 H (11.0-16.0) % Plt Count 54 L D (160-400) X10*3/uL MPV Not Reportable Immature Gran % (Auto) 0.2 (0.0-0.4) % Neut % (Auto) 71.5 (45-73) % Lymph % (Auto) 9.8 L (20-40) % Carson % (Auto) 11.4 H (2-11) % Eos % (Auto) 6.3 H (0-4) % Baso % (Auto) 0.8 (0-2) % Lymph # (Auto) 0.5 L (1.2-4.9) X10*3/uL Carson # (Auto) 0.6 (0.1-1.2) X10*3/uL Eos # (Auto) 0.3 (0.0-0.4) X10*3/uL Baso # (Auto) 0.0 (0.0-0.2) X10*3/uL Abs Immat Gran (auto) 0.01 (0.00-0.03) X10*3/uL Absolute Neuts (auto) 3.7 (2.0-8.3) X10*3/uL Absolute Nucleated RBC 0.060 H (0.0-0.012) X10*3/uL Nucleated RBC % (auto) 1.2 H (0.0-0.2) /100WBC Smear Tech's Comments VERIFIED PT 23.5 H (10.8-13.0) SEC INR 2.0 H (0.9-1.1) Sodium 132 L (135-145) mmol/L Potassium 3.4 D (3.3-5.1) mmol/l Chloride 93 L (96-108) mmol/L Carbon Dioxide 25 (22-29) mmol/L Anion Gap 17 (12-20) BUN 30 H (9-16) mg/dL Creatinine 1.59 H (0.5-1.4) mg/dL Estim Creat Clear Calc 44.4 Estimated GFR 45 POC Glucose (60-115) mg/dL Random Glucose 41 L* (60-115) mg/dL Calcium 8.4 (8.4-10.2) mg/dL Troponin I High Sens (<3.5-35.0) ng/L TSH (0.32-4.0) mIU/mL Free T4 (0.71-1.85) ng/dL Urine Color Urine Appearance Urine pH (5.0-8.0) Ur Specific [place] (1.005-1.025) Urine Protein (NEG-TRACE) MG/DL Urine Glucose (UA) (NEG) MG/DL Urine Ketones (NEG) MG/DL Urine Blood (NEG) Urine Nitrite (NEG) Ur Leukocyte Esterase (NEG) Urine RBC (0) /HPF Urine WBC (0-4) /HPF Urine WBC Clumps Ur Squamous Epith Cells /LPF Ur Renal Epithelial Cell /LPF Urine Bacteria /LPF Epithelial Casts /LPF Hyaline Casts /LPF Urine Mucus /LPF Digoxin (0.8-2.0) ng/mL COVID-19 ([facility]TEO) (Negative) COVID-19 Clin Com 12/11/20 12/11/20 12/11/20 Range/Units 10:15 10:15 10:15 WBC (4.8-10.8) X10*3/uL RBC (4.60-5.80) X10*6/uL Hgb (14.0-18.0) g/dl Hct (42-52) % MCV (80-98) fL MCH (27.0-33.0) pg MCHC (31.0-36.0) g/dl RDW (11.0-16.0) % Plt Count (160-400) X10*3/uL MPV Immature Gran % (Auto) (0.0-0.4) % Neut % (Auto) (45-73) % Lymph % (Auto) (20-40) % Carson % (Auto) (2-11) % Eos % (Auto) (0-4) % Baso % (Auto) (0-2) % Lymph # (Auto) (1.2-4.9) X10*3/uL [place] # (Auto) (0.1-1.2) X10*3/uL Eos # (Auto) (0.0-0.4) X10*3/uL Baso # (Auto) (0.0-0.2) X10*3/uL Abs Immat Gran (auto) (0.00-0.03) X10*3/uL Absolute Neuts (auto) (2.0-8.3) X10*3/uL Absolute Nucleated RBC (0.0-0.012) X10*3/uL Nucleated RBC % (auto) (0.0-0.2) /100WBC Smear Tech's Comments PT (10.8-13.0) SEC INR (0.9-1.1) Sodium (135-145) mmol/L Potassium (3.3-5.1) mmol/l Chloride (96-108) mmol/L Carbon Dioxide (22-29) mmol/L Anion Gap (12-20) BUN (9-16) mg/dL Creatinine (0.5-1.4) mg/dL Estim Creat Clear Calc Estimated GFR POC Glucose (60-115) mg/dL Random Glucose (60-115) mg/dL Calcium (8.4-10.2) mg/dL Troponin I High Sens 14.9 (<3.5-35.0) ng/L TSH 15.31 H (0.32-4.0) mIU/mL Free T4 1.05 (0.71-1.85) ng/dL Urine Color Urine Appearance Urine pH (5.0-8.0) Ur Specific [place] (1.005-1.025) Urine Protein (NEG-TRACE) MG/DL Urine Glucose (UA) (NEG) MG/DL Urine Ketones (NEG) MG/DL Urine Blood (NEG) Urine Nitrite (NEG) Ur Leukocyte Esterase (NEG) Urine RBC (0) /HPF Urine WBC (0-4) /HPF Urine WBC Clumps Ur Squamous Epith Cells /LPF Ur Renal Epithelial Cell /LPF Urine Bacteria /LPF Epithelial Casts /LPF Hyaline Casts /LPF Urine Mucus /LPF Digoxin 0.6 L (0.8-2.0) ng/mL COVID-19 ([facility]) (Negative) COVID-19 Clin Com 12/11/20 12/11/20 12/11/20 Range/Units 11:07 12:19 13:25 WBC (4.8-10.8) X10*3/uL RBC (4.60-5.80) X10*6/uL Hgb (14.0-18.0) g/dl Hct (42-52) % MCV (80-98) fL MCH (27.0-33.0) pg MCHC (31.0-36.0) g/dl RDW (11.0-16.0) % Plt Count (160-400) X10*3/uL MPV Immature Gran % (Auto) (0.0-0.4) % Neut % (Auto) (45-73) % Lymph % (Auto) (20-40) % Carson % (Auto) (2-11) % Eos % (Auto) (0-4) % Baso % (Auto) (0-2) % Lymph # (Auto) (1.2-4.9) X10*3/uL [place] # (Auto) (0.1-1.2) X10*3/uL Eos # (Auto) (0.0-0.4) X10*3/uL Baso # (Auto) (0.0-0.2) X10*3/uL Abs Immat Gran (auto) (0.00-0.03) X10*3/uL Absolute Neuts (auto) (2.0-8.3) X10*3/uL Absolute Nucleated RBC (0.0-0.012) X10*3/uL Nucleated RBC % (auto) (0.0-0.2) /100WBC Smear Tech's Comments PT (10.8-13.0) SEC INR (0.9-1.1) Sodium (135-145) mmol/L Potassium (3.3-5.1) mmol/l Chloride (96-108) mmol/L Carbon Dioxide (22-29) mmol/L Anion Gap (12-20) BUN (9-16) mg/dL Creatinine (0.5-1.4) mg/dL Estim Creat Clear Calc Estimated GFR POC Glucose 67 61 (60-115) mg/dL Random Glucose (60-115) mg/dL Calcium (8.4-10.2) mg/dL Troponin I High Sens (<3.5-35.0) ng/L TSH (0.32-4.0) mIU/mL Free T4 (0.71-1.85) ng/dL Urine Color Urine Appearance Urine pH (5.0-8.0) Ur Specific [place] (1.005-1.025) Urine Protein (NEG-TRACE) MG/DL Urine Glucose (UA) (NEG) MG/DL Urine Ketones (NEG) MG/DL Urine Blood (NEG) Urine Nitrite (NEG) Ur Leukocyte Esterase (NEG) Urine RBC (0) /HPF Urine WBC (0-4) /HPF Urine WBC Clumps Ur Squamous Epith Cells /LPF Ur Renal Epithelial Cell /LPF Urine Bacteria /LPF Epithelial Casts /LPF Hyaline Casts /LPF Urine Mucus /LPF Digoxin (0.8-2.0) ng/mL COVID-19 ([facility]TEO) Negative (Negative) COVID-19 Clin Com See Note 12/11/20 12/11/20 12/11/20 Range/Units 14:53 15:24 15:26 WBC (4.8-10.8) X10*3/uL RBC (4.60-5.80) X10*6/uL Hgb (14.0-18.0) g/dl Hct (42-52) % MCV (80-98) fL MCH (27.0-33.0) pg MCHC (31.0-36.0) g/dl RDW (11.0-16.0) % Plt Count (160-400) X10*3/uL MPV Immature Gran % (Auto) (0.0-0.4) % Neut % (Auto) (45-73) % Lymph % (Auto) (20-40) % [place] % (Auto) (2-11) % Eos % (Auto) (0-4) % Baso % (Auto) (0-2) % Lymph # (Auto) (1.2-4.9) X10*3/uL [place] # (Auto) (0.1-1.2) X10*3/uL Eos # (Auto) (0.0-0.4) X10*3/uL Baso # (Auto) (0.0-0.2) X10*3/uL Abs Immat Gran (auto) (0.00-0.03) X10*3/uL Absolute Neuts (auto) (2.0-8.3) X10*3/uL Absolute Nucleated RBC (0.0-0.012) X10*3/uL Nucleated RBC % (auto) (0.0-0.2) /100WBC Smear Tech's Comments PT (10.8-13.0) SEC INR (0.9-1.1) Sodium (135-145) mmol/L Potassium (3.3-5.1) mmol/l Chloride (96-108) mmol/L Carbon Dioxide (22-29) mmol/L Anion Gap (12-20) BUN (9-16) mg/dL Creatinine (0.5-1.4) mg/dL Estim Creat Clear Calc Estimated GFR POC Glucose 51 L* 43 L* (60-115) mg/dL Random Glucose (60-115) mg/dL Calcium (8.4-10.2) mg/dL Troponin I High Sens (<3.5-35.0) ng/L TSH (0.32-4.0) mIU/mL Free T4 (0.71-1.85) ng/dL Urine Color YELLOW Urine Appearance HAZY Urine pH 6.0 (5.0-8.0) Ur Specific [place] 1.020 (1.005-1.025) Urine Protein NEG (NEG-TRACE) MG/DL Urine Glucose (UA) NEG (NEG) MG/DL Urine Ketones NEG (NEG) MG/DL Urine Blood 2+ H (NEG) Urine Nitrite NEG (NEG) Ur Leukocyte Esterase NEG (NEG) Urine RBC 10-14 H (0) /HPF Urine WBC 5-9 H (0-4) /HPF Urine WBC Clumps NOTED Ur Squamous Epith Cells NONE /LPF Ur Renal Epithelial Cell 2+ /LPF Urine Bacteria 2+ /LPF Epithelial Casts 0-2 /LPF Hyaline Casts 5-9 /LPF Urine Mucus 2+ /LPF Digoxin (0.8-2.0) ng/mL COVID-19 ([facility]) (Negative) COVID-19 Clin Com 12/11/20 Range/Units 16:22 WBC (4.8-10.8) X10*3/uL RBC (4.60-5.80) X10*6/uL Hgb (14.0-18.0) g/dl Hct (42-52) % MCV (80-98) fL MCH (27.0-33.0) pg MCHC (31.0-36.0) g/dl RDW (11.0-16.0) % Plt Count (160-400) X10*3/uL MPV Immature Gran % (Auto) (0.0-0.4) % Neut % (Auto) (45-73) % Lymph % (Auto) (20-40) % [place] % (Auto) (2-11) % Eos % (Auto) (0-4) % Baso % (Auto) (0-2) % Lymph # (Auto) (1.2-4.9) X10*3/uL [place] # (Auto) (0.1-1.2) X10*3/uL Eos # (Auto) (0.0-0.4) X10*3/uL Baso # (Auto) (0.0-0.2) X10*3/uL Abs Immat Gran (auto) (0.00-0.03) X10*3/uL Absolute Neuts (auto) (2.0-8.3) X10*3/uL Absolute Nucleated RBC (0.0-0.012) X10*3/uL Nucleated RBC % (auto) (0.0-0.2) /100WBC Smear Tech's Comments PT (10.8-13.0) SEC INR (0.9-1.1) Sodium (135-145) mmol/L Potassium (3.3-5.1) mmol/l Chloride (96-108) mmol/L Carbon Dioxide (22-29) mmol/L Anion Gap (12-20) BUN (9-16) mg/dL Creatinine (0.5-1.4) mg/dL Estim Creat Clear Calc Estimated GFR POC Glucose 137 H (60-115) mg/dL Random Glucose (60-115) mg/dL Calcium (8.4-10.2) mg/dL Troponin I High Sens (<3.5-35.0) ng/L TSH (0.32-4.0) mIU/mL Free T4 (0.71-1.85) ng/dL Urine Color Urine Appearance Urine pH (5.0-8.0) Ur Specific [place] (1.005-1.025) Urine Protein (NEG-TRACE) MG/DL Urine Glucose (UA) (NEG) MG/DL Urine Ketones (NEG) MG/DL Urine Blood (NEG) Urine Nitrite (NEG) Ur Leukocyte Esterase (NEG) Urine RBC (0) /HPF Urine WBC (0-4) /HPF Urine WBC Clumps Ur Squamous Epith Cells /LPF Ur Renal Epithelial Cell /LPF Urine Bacteria /LPF Epithelial Casts /LPF Hyaline Casts /LPF Urine Mucus /LPF Digoxin (0.8-2.0) ng/mL COVID-19 ([facility]) (Negative) COVID-19 Clin Com Imaging Data Chest x-ray: Radiologist's impression: right base edema ECG Data Attestation: I personally reviewed and interpreted this ECG as follows: Interpretation: atrial fibrillation rate of 85, no st or twave changes Critical Care Time Critical Care Time Attestation: I spent 40 minutes of critical care, with interventions, assessments, speaking to patient, consultants, and family. Discharge Plan Discharge Clinical Impression: RUDY (acute kidney injury), Anasarca, Hypoglycemia Hypothermia Qualifiers: Encounter type: initial encounter Qualified Code(s): T68.XXXA - Hypothermia, initial encounter Hypothyroid Qualifiers: Hypothyroidism type: unspecified Qualified Code(s): E03.9 - Hypothyroidism, unspecified Patient Disposition: Admitted As Inpatient Interventions: Admission Worksheet (ED) Last Done: 12/12/20 11:32 Discharge Date/Time: 12/12/20 11:33
--- NOTE | 2020-12-11 08:49 | ECG_ITS ---
Test Reason : WEAKNESS Blood Pressure : / mmHG Vent. Rate : 085 BPM Atrial Rate : 084 BPM P-R Int : 000 ms QRS Dur : 116 ms QT Int : 438 ms P-R-T Axes : 000 104 003 degrees QTc Int : 521 ms Atrial fibrillation with a competing junctional pacemaker Rightward axis Low voltage QRS Abnormal ECG When compared with ECG of 19-NOV-2020 10:46, No significant change was found Referred By: Zhen Antony Electronically Signed By:THOMAS JIMENEZ MD
--- NOTE | 2020-12-11 08:49 | XR_ITS ---
EXAMINATION: XR CHEST CLINICAL INFORMATION: Increasing edema and congestive heart failure COMPARISON: November 30, 2020 and November 19, 2020 TECHNIQUE: AP portable view of the chest was obtained. FINDINGS: There is a small increasing right pleural effusion since previous study. There is also some increasing consolidation within the right middle lobe. No definite evidence of airspace edema is seen. No pneumothorax. The cardiopericardial silhouette is mildly enlarged. XR/XR chest 1V IMPRESSION: Small increasing right pleural effusion. Increase in right base consolidation. No airspace edema appreciated.
[2020-12-11] MEDS: Bumetanide 1 MG TABLET 3 MG PO (09:21)
[2020-12-11] MEDS: metOLazone 2.5 MG TABLET PO (09:22)
[2020-12-11] MEDS: Digoxin 0.125 MG TABLET PO (09:22)
[2020-12-11 10:25] LABS: Eosinophils Percent Auto 6.3 % (0-4); MANUAL DIFF FLAG SCAN; SCAN SMEAR FLAG 1
[2020-12-11 10:26] LABS: Basophils Percent Auto 0.8 % (0-2); Eosinophils Absolute Auto 0.3 X10*3/uL (0.0-0.4); Hematocrit 27.1 % (42-52); Hemoglobin 9.1 g/dl (14.0-18.0); Imm Gran Abs Auto 0.01 X10*3/uL (0.00-0.03); Imm Gran Pct Auto 0.2 % (0.0-0.4); Lymphocytes Absolute Auto 0.5 X10*3/uL (1.2-4.9); Lymphocytes Percent Auto 9.8 % (20-40); Mean Corpuscular HGB Conc 33.6 g/dl (31.0-36.0); Mean Corpuscular Hemoglobin 21.7 pg (27.0-33.0); Monocytes Absolute Auto 0.6 X10*3/uL (0.1-1.2); Monocytes Percent Auto 11.4 % (2-11); Neutrophils Absolute Auto 3.7 X10*3/uL (2.0-8.3); Neutrophils Percent Auto 71.5 % (45-73); Red Cell Distribution Width 24.3 % (11.0-16.0); White Blood Count 5.1 X10*3/uL (4.8-10.8)
[2020-12-11 10:29] LABS: Prothrombin Time 23.5 SEC (10.8-13.0)
[2020-12-11 10:45] LABS: Mean Corpuscular Volume 64.5 fL (80-98); NRBC Pct Auto 1.2 /100WBC (0.0-0.2); PLT ABN DIST 1; Platelet Count 54 X10*3/uL (160-400)
[2020-12-11] MEDS: Warfarin Sodium 7.5 MG TABLET PO (10:52)
[2020-12-11] MEDS: Levothyroxine Sodium 75 MCG TABLET PO (10:52)
[2020-12-11 11:04] LABS: Anion Gap 17 (12-20); Blood Urea Nitrogen 30 mg/dL (9-16); Calcium 8.4 mg/dL (8.4-10.2); Carbon Dioxide 25 mmol/L (22-29); Chloride 93 mmol/L (96-108); Creatinine Clr Calc Pharmacy 44.4; Estimated Glomerular Filt Rate 45; Glucose Random 41 mg/dL (60-115); Potassium 3.4 mmol/l (3.3-5.1); Sodium 132 mmol/L (135-145)
[2020-12-11 11:06] LABS: Troponin-I High Sensitivity 14.9 ng/L (<3.5-35.0)
--- NOTE | 2020-12-11 11:10 | PC.NURSE ---
POC 67, PT ALERT IN STRETCHER AT THIS TIME.
[2020-12-11 11:11] LABS: Glucose, Whole Blood 67 mg/dL (60-115)
[2020-12-11 11:11] LABS: SLIDE REVIEW VERIFIED
[2020-12-11 11:22] LABS: TSH reflex Free T4 15.31 mIU/mL (0.32-4.0)
[2020-12-11 11:32] LABS: Digoxin 0.6 ng/mL (0.8-2.0)
[2020-12-11 12:08] LABS: Free T4 (Free Thyroxine) 1.05 ng/dL (0.71-1.85)
--- NOTE | 2020-12-11 12:27 | PC.NURSE ---
NO BM PASSED OF YET. PT DIFFICULT TO ROUSE, BY NOXIOUS STIMULI ONLY, FOLLOWING COMMANDS BUT NOT COUGHING TO CLEAR HER OWN AIRWAY. LS WET THOUGH SPO2 IS WNL, REMAINS ON 2L O2. PRIMARY RN KATIA AND MD JENSEN AWARE. SECOND DOSE OF LACTULOSE TO BE GIVEN.
[2020-12-11 12:30] LABS: Glucose, Whole Blood 61 mg/dL (60-115)
[2020-12-11] MEDS: Levothyroxine Sodium 100 MCG VIAL 75 MCG IVPUSH (12:30)
[2020-12-11 13:51] LABS: COVID-19 Test Negative (Negative)
[2020-12-11 14:57] LABS: Glucose, Whole Blood 51 mg/dL (60-115)
[2020-12-11 15:44] LABS: Glucose, Whole Blood 43 mg/dL (60-115)
[2020-12-11 15:55] LABS: Glucose Urine UA NEG (NEG); Leukocyte Esterase Urine NEG (NEG); Nitrite Urine NEG (NEG); Urine Blood 2+ (NEG); Urine Ketones NEG (NEG); Urine Protein NEG (NEG-TRACE)
[2020-12-11 16:01] LABS: Appearance Urine HAZY; Color Urine YELLOW
[2020-12-11 16:25] LABS: UACC CULT YES
[2020-12-11 16:26] LABS: Bacteria Urine 2+ /LPF; Epith (RTE) Cast 0-2 /LPF; Mucus Urine 2+ /LPF; Renal Epithelial Cells Urine 2+ /LPF; WBC Clumps Urine NOTED
[2020-12-11 16:26] LABS: Glucose, Whole Blood 137 mg/dL (60-115)
[2020-12-11] MEDS: cefTRIAXone sodium 1 GM in 0.9 % Sodium Chloride 50 ML IV (17:59)
--- NOTE | 2020-12-11 18:03 | PC.NURSE ---
patient medicated per order
[2020-12-11 18:20] LABS: Glucose, Whole Blood 88 mg/dL (60-115)
--- NOTE | 2020-12-11 18:41 | HP_ITS ---
DATE OF SERVICE: 12/11/2020 CHIEF COMPLAINT: Generalized edema. HISTORY OF PRESENTING ILLNESS: This is a 60-year-old gentleman who was recently discharged from [facility] on December 03, 2020, after being treated for cardiorenal syndrome. The patient required treatment with IV Bumex drip with good response. The patient during that hospitalization was also diagnosed to have hypothyroidism, was placed on Synthroid. The patient has generalized edema as well as hypothermia, hypoglycemia improved and the patient was subsequently discharged home. The patient returned to [facility] this morning due to worsening edema. According to the patient and his brother who is the healthcare proxy, the patient has been taking his medications as prescribed. In the emergency room, the patient was noticed to be hypoglycemic with a blood sugar of 41. He was hypothermic with a temp around 91. The patient's creatinine was slightly elevated at 1.59, sodium 132. TSH improved to 15.31 from level of 22.39 that went down to 11.36. The patient's INR is close to therapeutic range of 2 that seems the patient has been taking his medication. The patient in the emergency room was treated with a dose of Bumex, Coumadin, IV levothyroxine. Franisco Hugger was used. The patient's temperature gradually improved from a level of 91 to 96.6 at the present time. The patient is awake, alert, denies any shortness of breath, but complaining of generalized weakness and swelling of lower extremities and difficulty in urination due to scrotal swelling. The patient is now being admitted to [facility] due to generalized anasarca with worsening renal function. The patient's creatinine improved to normal at 0.94 upon discharge on December 03, now bumped up to 1.59. PAST MEDICAL HISTORY: 1. Significant for history of atrial fibrillation, on Coumadin with therapeutic INR. 2. History of congestive heart failure. 3. History of hepatic encephalopathy. 4. History of severe mitral stenosis. 5. History of schizophrenia. 6. History of traumatic brain injury. SOCIAL HISTORY: The patient quit consuming alcohol in remote past. The patient lives at home with family. The patient's ambulatory status is declining due to recurrent bout of hospitalization, weakness and edema. The patient is a former smoker. FAMILY HISTORY: The patient's father is . Mother has hypertension. MEDICATIONS: On admission, metolazone 2.5 mg Wednesday, Wednesdays, and Fridays; levothyroxine 50 mcg daily; clotrimazole 1 application topically b.i.d.; potassium chloride 20 mEq b.i.d.; magnesium 800 mg daily; Bumex 3 mg p.o. b.i.d.; omeprazole 40 mg daily; risperidone 2 mg b.i.d.; digoxin 0.125 mg daily; metoprolol 12.5 mg b.i.d.; cetirizine 10 mg daily; EpiPen 0.3 mg intramuscular to 10 minutes p.r.n. for anaphylaxis and warfarin 7.5 mg by mouth daily. ALLERGIES: THE PATIENT IS ALLERGIC TO FISH CONTAINING PRODUCTS, UNKNOWN REACTION AND PEPPERS INCLUDING JALAPENO, UNKNOWN REACTION. REVIEW OF SYSTEMS: The patient is unable to provide a detailed review of system, however: BLOOD SPLATTER ANALYST: He denies any headache, dizziness. CVS: He denies any chest pain. RESPIRATORY: He denies any shortness of breath. GI: He has no nausea, vomiting, diarrhea. EXTREMITIES: The patient is complaining of worsening edema. : He is complaining of difficulty with urination. LABORATORY DATA: The patient's COVID test is negative. His urinalysis showed 2+ blood, 10-14 rbc's, 5-9 wbc count, 2+ bacteria. Urine wbc clumps were noted. The nitrite is negative. Sodium 132, chloride of 93, BUN 30, worsening creatinine since last admission to 1.59. Blood sugar on arrival 41, improved to 137 with IV fluids and D50. TSH on November 19 was 22.39, dropped down to 11.36 on November 30 and today trending up to 15.31. IMAGING STUDIES: Included a chest x-ray that showed right pleural effusion, increase in right base consolidation. No edema. Urine culture as well as blood cultures have been sent. Reports are pending. EKG today showed atrial fibrillation with a complete junctional pacemaker. No significant change was found from the recent EKG of November 19. ASSESSMENT AND PLAN: This is a 60-year-old gentleman with past medical history significant for right-sided heart failure, pulmonary hypertension, severe mitral stenosis, recently discharged from [facility] 1 week ago, presented to [facility] due to generalized anasarca and significant fluid overload. The patient will be admitted to intermediate care unit for continued monitoring and treatment. PROBLEM LIST: 1. Acute on chronic right-sided congestive heart failure due to severe mitral stenosis complicated by acute kidney injury. We will place the patient on IV Bumex. During his previous hospitalization, the patient did not respond to twice daily IV Bumex and required Bumex drip. We will discuss further treatment plan with Cardiology and Nephrology. We will place a Alegre catheter for good I's and O's. We will follow BMP closely while being diuresed. Continue metolazone 3 times per week. 2. Acute kidney injury. It was felt that the patient has poor forward stroke volume and perfusion related to severe mitral stenosis with atrial fibrillation with secondary severe pulmonary hypertension and right ventricular enlargement that causes cardiorenal syndrome. The patient and his family have been informed about extremely poor prognosis for the patient. The patient will be treated with IV diuretic therapy. Consult Nephrology and Cardiology and follow clinical course. I spoke with the patient's brother, Katy at phone #[phone]. Discussed code status with him. He wishes patient to be DNR DNI. If the patient does not respond to treatment, then we will consider palliative care. 3. Atrial fibrillation. The patient's rate is adequately controlled, currently on digoxin and low-dose metoprolol 12.5 mg b.i.d. The patient is also on Coumadin. We will continue home medication and continue telemonitor. 4. History of hypothermia, likely related to hypothyroidism. The patient's temperature has improved with Fransico Hugger. We will increase the dose of Synthroid. 5. Newly diagnosed hypothyroidism. We will increase the dose of Synthroid. The patient received 1 dose of IV levothyroxine today. We will convert to by mouth from tomorrow morning. 6. Mitral stenosis, severe. 7. Code status is DNR DNI. Family is aware of poor prognosis. 8. History of thrombocytopenia and anemia. The patient's hematocrit remains stable. Platelet low around 54,000 that needs to be monitored closely. 9. Abnormal urinalysis, likely urinary tract infection. We will follow urine cultures as well as blood culture with empirically place the patient on IV ceftriaxone. MD JAX Benitez/DEYANIRA / [id number]
--- NOTE | 2020-12-11 18:46 | PC.NURSE ---
patient alert to his baseline, patient very dependent and wanting staff to feed him, pt is being encouraged to eat on his own. when patient is given bites of food he states he doesnt like the food and requests something different to eat and then again states he dislikes the food. Patient has been given multiple gingerales and tea with milk and sugar per his request. vitals continue to be stable, will continue to monitor.
--- NOTE | 2020-12-11 19:09 | PC.NURSE ---
patient continues to ring wanting pain medication, patient also continuously requesting for staff to feed him, pt also upset about the blood pressure cuff on his arm and requested it to be taken off
[2020-12-11] MEDS: oxyCODONE HCl Immed Release 5 MG TABLET PO (19:25)
--- NOTE | 2020-12-11 19:31 | PC.NURSE ---
patient medicated per order
--- NOTE | 2020-12-11 21:20 | PC.NURSE ---
patient a&o, digital measurement advisor intact, vitals stable, patients temp is 97.4 orally- pts core temp continues to read 96.3-, pt remains on hema hugger for time being, will reassess, currently patient is calm at this time, will continue to monitor.
[2020-12-11] MEDS: Bumetanide 1 MG/4 ML VIAL IVPUSH (21:50)
[2020-12-11] MEDS: Potassium Chloride ER 20 MEQ TAB.ER.PRT PO (21:50)
[2020-12-11 21:52] LABS: Glucose, Whole Blood 121 mg/dL (60-115)
--- NOTE | 2020-12-11 21:55 | PC.NURSE ---
PATMENT MEDICATED PER ORDER, VSS, WILL CONTINUE TO MONITOR.
--- NOTE | 2020-12-11 22:13 | PC.NURSE ---
called pharmacy for missing med
[2020-12-11] MEDS: Clotrimazole 1 % Cream 15 GM TUBE 1 APPL TOPICAL (22:47)
[2020-12-12] VITALS (8 sets, daily range): BP systolic 97–125; BP diastolic 44–83; PULSE 68–89; RESP 15–20; TEMP 36.1–36.6; O2SAT 97–99
--- NOTE | 2020-12-12 00:11 | PC.NURSE ---
PATIENT IN BED COMFORTABLY, PLAN OF CARE FOR ADMISSION TO HOSPITAL. AWAITING BED ASSIGNMENT. NON AVAILABLE UNTIL THE MORNING.
--- NOTE | 2020-12-12 01:16 | PC.NURSE ---
PATIENT REMOVED OFF OF THE BEAR HUGGER, PATIENT CORE TEMP IS 98.3 USING THE TEMP SENSING [place]. PATIENT IS ALERT WITH NO DISTRESS NOTED AWAITING BED ASSIGNMENT PLACEMENT.
[2020-12-12 06:53] LABS: INTERNATIONAL NORM RATIO 1.9 (0.9-1.1); Prothrombin Time 22.6 SEC (10.8-13.0)
[2020-12-12 06:56] LABS: Anion Gap 18 (12-20); Blood Urea Nitrogen 32 mg/dL (9-16); Calcium 8.4 mg/dL (8.4-10.2); Carbon Dioxide 23 mmol/L (22-29); Chloride 94 mmol/L (96-108); Creatinine Clr Calc Pharmacy 40.8; Estimated Glomerular Filt Rate 41; Glucose Random 72 mg/dL (60-115); Sodium 131 mmol/L (135-145)
[2020-12-12] MEDS: Omeprazole 40 MG CAPSULE.DR PO (08:59)
[2020-12-12] MEDS: Potassium Chloride ER 20 MEQ TAB.ER.PRT PO ×2 (08:59→20:58)
[2020-12-12] MEDS: Loratadine 10 MG TABLET PO (08:59)
[2020-12-12] MEDS: Magnesium Oxide 400 MG TABLET 800 MG PO (08:59)
[2020-12-12] MEDS: Digoxin 0.125 MG TABLET PO (08:59)
[2020-12-12] MEDS: Bumetanide 1 MG/4 ML VIAL IVPUSH (09:00)
--- NOTE | 2020-12-12 09:50 | PM.CNCAR ---
History of Present Illness History of Present Illness Date of Service: 12/12/20 Requesting physician: Jose Luis Cantrell Chief complaint: generalized edema, hypothermia Narrative: We were consulted on this case due to recurrent admission with generalized anasarca and hypothermia. Patient was recently discharged from the hospital about 8 days ago with higher dose of Bumex as well as metolazone. Comes back to the hospital with increasing swelling, hypothermia and hypoglycemia. In the ED noted to be quite hypothermic CAD to be warmed up with a warming blanket. His temperature is improved. He was given Bumex, intake and output not clear. Patient noted to have elevated creatinine consistent with cardiorenal syndrome, similar to the presentation last time. However it appears that he is in earlier stage of decompensation compared to when he came in last time. Patient complains of some discomfort in the penis. He also has discomfort in his back. He also is short of breath. Denies any chest pain. Denies any palpitations. Remains in atrial fibrillation. As recorded in the chart seems like patient has been compliant with his medication. However not sure as to the kind of care he is receiving at home. Review of Systems Review of Systems: Yes Unobtainable due to mental condition PMFSH Past Medical History Medical History Acute retention of urine Afib CHF (congestive heart failure) Hepatic encephalopathy Persistent atrial fibrillation Quit consuming alcohol in remote past Schizophrenia Severe mitral valve stenosis Traumatic brain injury Family History Family History Father No problems noted. Mother HTN (hypertension) Social History Social History Household Members: Family Housing: Apartment Alcohol intake: never Smoking Status: Never smoker Use of substances other than those prescribed or required for medical reasons: No Advance Directives: No Advance Directives Information Provided: Yes service: No Current occupational status: unemployed Meds Allergies Allergy/AdvReac Type Severity Reaction Status Date / Time Fish Containing Products Allergy Unknown UNKNOWN Verified 09/12/20 07:09 PEPPERS, JALAPENO Allergy Unknown UNKNOWN Uncoded 09/12/20 07:09 Home Medications Medication Instructions Recorded Confirmed Type digoxin [Digitek] 125 mcg PO DAILY 09/12/20 12/11/20 History omeprazole 40 mg PO DAILY 09/12/20 12/11/20 History risperidone 2 mg PO BID 09/12/20 12/11/20 History clotrimazole 1 appl TOPICAL BID 11/04/20 12/11/20 History warfarin 7.5 mg PO DAILY 11/20/20 12/11/20 History Physical Exam Vital Signs: Vital Signs: Last Vital Signs Temp 97.4 F 12/12/20 06:00 Pulse 88 12/12/20 08:59 Resp 16 12/12/20 06:00 BP 104/64 12/12/20 06:00 Pulse Ox 99 12/12/20 06:00 Body Mass Index 21.4 Const: General: alert, awake, acute distress moderate and respiratory and ill appearing Nutritional Appearance: cachectic Neck: Neck: Yes JVD Chest: Chest palpation & inspection: normal inspection of the chest Resp: Effort & Inspection: decreased respiratory effort Auscultation: diminished lung sounds Cardio: Palpation: abnormal PMI displaced PMI Rhythm: abnormal rhythm irregularly irregular Heart sounds: S1 normal heart sound present GI: Inspection: Yes distended Auscultation: normal bowel sounds Skin: General skin exam: no rashes or lesions noted Extrem: General: Yes edema Results Labs and Meds Result diagrams: 12/11/20 10:15 12/12/20 06:29 Lab results: Laboratory Results - last 24 hr 12/11/20 12/11/20 12/11/20 10:15 10:15 10:15 WBC 5.1 RBC 4.20 L Hgb 9.1 L Hct 27.1 L MCV 64.5 L MCH 21.7 L MCHC 33.6 RDW 24.3 H Plt Count 54 L D MPV Not Reportable Immature Gran % (Auto) 0.2 Neut % (Auto) 71.5 Lymph % (Auto) 9.8 L [place] % (Auto) 11.4 H Eos % (Auto) 6.3 H Baso % (Auto) 0.8 Lymph # (Auto) 0.5 L [place] # (Auto) 0.6 Eos # (Auto) 0.3 Baso # (Auto) 0.0 Abs Immat Gran (auto) 0.01 Absolute Neuts (auto) 3.7 Absolute Nucleated RBC 0.060 H Nucleated RBC % (auto) 1.2 H Smear Tech's Comments VERIFIED PT 23.5 H INR 2.0 H Sodium 132 L Potassium 3.4 D Chloride 93 L Carbon Dioxide 25 Anion Gap 17 BUN 30 H Creatinine 1.59 H Estim Creat Clear Calc 44.4 Estimated GFR 45 POC Glucose Random Glucose 41 L* Calcium 8.4 Troponin I High Sens TSH Free T4 Urine Color Urine Appearance Urine pH Ur Specific [place] Urine Protein Urine Glucose (UA) Urine Ketones Urine Blood Urine Nitrite Ur Leukocyte Esterase Urine RBC Urine WBC Urine WBC Clumps Ur Squamous Epith Cells Ur Renal Epithelial Cell Urine Bacteria Epithelial Casts Hyaline Casts Urine Mucus Digoxin COVID-19 ([facility]) COVID-19 Clin Com 12/11/20 12/11/20 12/11/20 10:15 10:15 10:15 WBC RBC Hgb Hct MCV MCH MCHC RDW Plt Count MPV Immature Gran % (Auto) Neut % (Auto) Lymph % (Auto) [place] % (Auto) Eos % (Auto) Baso % (Auto) Lymph # (Auto) [place] # (Auto) Eos # (Auto) Baso # (Auto) Abs Immat Gran (auto) Absolute Neuts (auto) Absolute Nucleated RBC Nucleated RBC % (auto) Smear Tech's Comments PT INR Sodium Potassium Chloride Carbon Dioxide Anion Gap BUN Creatinine Estim Creat Clear Calc Estimated GFR POC Glucose Random Glucose Calcium Troponin I High Sens 14.9 TSH 15.31 H Free T4 1.05 Urine Color Urine Appearance Urine pH Ur Specific [place] Urine Protein Urine Glucose (UA) Urine Ketones Urine Blood Urine Nitrite Ur Leukocyte Esterase Urine RBC Urine WBC Urine WBC Clumps Ur Squamous Epith Cells Ur Renal Epithelial Cell Urine Bacteria Epithelial Casts Hyaline Casts Urine Mucus Digoxin 0.6 L COVID-19 ([facility]) COVID-19 Clin Com 12/11/20 12/11/20 12/11/20 11:07 12:19 13:25 WBC RBC Hgb Hct MCV MCH MCHC RDW Plt Count MPV Immature Gran % (Auto) Neut % (Auto) Lymph % (Auto) [place] % (Auto) Eos % (Auto) Baso % (Auto) Lymph # (Auto) [place] # (Auto) Eos # (Auto) Baso # (Auto) Abs Immat Gran (auto) Absolute Neuts (auto) Absolute Nucleated RBC Nucleated RBC % (auto) Smear Tech's Comments PT INR Sodium Potassium Chloride Carbon Dioxide Anion Gap BUN Creatinine Estim Creat Clear Calc Estimated GFR POC Glucose 67 61 Random Glucose Calcium Troponin I High Sens TSH Free T4 Urine Color Urine Appearance Urine pH Ur Specific [place] Urine Protein Urine Glucose (UA) Urine Ketones Urine Blood Urine Nitrite Ur Leukocyte Esterase Urine RBC Urine WBC Urine WBC Clumps Ur Squamous Epith Cells Ur Renal Epithelial Cell Urine Bacteria Epithelial Casts Hyaline Casts Urine Mucus Digoxin COVID-19 ([facility]) Negative COVID-19 Clin Com See Note 12/11/20 12/11/20 12/11/20 14:53 15:24 15:26 WBC RBC Hgb Hct MCV MCH MCHC RDW Plt Count MPV Immature Gran % (Auto) Neut % (Auto) Lymph % (Auto) [place] % (Auto) Eos % (Auto) Baso % (Auto) Lymph # (Auto) [place] # (Auto) Eos # (Auto) Baso # (Auto) Abs Immat Gran (auto) Absolute Neuts (auto) Absolute Nucleated RBC Nucleated RBC % (auto) Smear Tech's Comments PT INR Sodium Potassium Chloride Carbon Dioxide Anion Gap BUN Creatinine Estim Creat Clear Calc Estimated GFR POC Glucose 51 L* 43 L* Random Glucose Calcium Troponin I High Sens TSH Free T4 Urine Color YELLOW Urine Appearance HAZY Urine pH 6.0 Ur Specific [place] 1.020 Urine Protein NEG Urine Glucose (UA) NEG Urine Ketones NEG Urine Blood 2+ H Urine Nitrite NEG Ur Leukocyte Esterase NEG Urine RBC 10-14 H Urine WBC 5-9 H Urine WBC Clumps NOTED Ur Squamous Epith Cells NONE Ur Renal Epithelial Cell 2+ Urine Bacteria 2+ Epithelial Casts 0-2 Hyaline Casts 5-9 Urine Mucus 2+ Digoxin COVID-19 ([facility]) COVID-19 Clin Com 12/11/20 12/11/20 12/11/20 16:22 18:17 21:11 WBC RBC Hgb Hct MCV MCH MCHC RDW Plt Count MPV Immature Gran % (Auto) Neut % (Auto) Lymph % (Auto) [place] % (Auto) Eos % (Auto) Baso % (Auto) Lymph # (Auto) [place] # (Auto) Eos # (Auto) Baso # (Auto) Abs Immat Gran (auto) Absolute Neuts (auto) Absolute Nucleated RBC Nucleated RBC % (auto) Smear Tech's Comments PT INR Sodium Potassium Chloride Carbon Dioxide Anion Gap BUN Creatinine Estim Creat Clear Calc Estimated GFR POC Glucose 137 H 88 121 H Random Glucose Calcium Troponin I High Sens TSH Free T4 Urine Color Urine Appearance Urine pH Ur Specific [place] Urine Protein Urine Glucose (UA) Urine Ketones Urine Blood Urine Nitrite Ur Leukocyte Esterase Urine RBC Urine WBC Urine WBC Clumps Ur Squamous Epith Cells Ur Renal Epithelial Cell Urine Bacteria Epithelial Casts Hyaline Casts Urine Mucus Digoxin COVID-19 ([facility]) COVID-19 [employer] Com 12/12/20 12/12/20 06:29 06:29 WBC RBC Hgb Hct MCV MCH MCHC RDW Plt Count MPV Immature Gran % (Auto) Neut % (Auto) Lymph % (Auto) [place] % (Auto) Eos % (Auto) Baso % (Auto) Lymph # (Auto) [place] # (Auto) Eos # (Auto) Baso # (Auto) Abs Immat Gran (auto) Absolute Neuts (auto) Absolute Nucleated RBC Nucleated RBC % (auto) Smear Tech's Comments PT 22.6 H INR 1.9 H Sodium 131 L Potassium 4.0 Chloride 94 L Carbon Dioxide 23 Anion Gap 18 BUN 32 H Creatinine 1.73 H Estim Creat Clear Calc 40.8 Estimated GFR 41 POC Glucose Random Glucose 72 D Calcium 8.4 Troponin I High Sens TSH Free T4 Urine Color Urine Appearance Urine pH Ur Specific [place] Urine Protein Urine Glucose (UA) Urine Ketones Urine Blood Urine Nitrite Ur Leukocyte Esterase Urine RBC Urine WBC Urine WBC Clumps Ur Squamous Epith Cells Ur Renal Epithelial Cell Urine Bacteria Epithelial Casts Hyaline Casts Urine Mucus Digoxin COVID-19 ([facility]) COVID-19 Clin Com Assessment and Plan (1) Hypothermia: Qualifiers: Encounter type: initial encounter Qualified Code(s): T68.XXXA - Hypothermia, initial encounter Status: Acute Hypothermia likely due to poor perfusion and hypothyroidism as well as probably poor living conditions. Temperature is improved with therapy. Continue to provide supportive care. (2) Anasarca: Status: Acute Generalized anasarca due to right heart failure. 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 Continue aggressive diuresis as before, creatinine improved with diuresis. Renal consult should be considered. (4) Acute on chronic right-sided congestive heart failure: Status: Acute Acute right heart failure secondary to severe pulmonary hypertension secondary severe mitral stenosis. Has had recurrent hospitalization related to right heart failure syndrome and generalized anasarca leading to poor cardiac output as well as renal injury due to poor perfusion. Continue diuresis. Should be on a Bumex drip. Strict intake and output chart should be pursued. Continue to monitor creatinine on a daily basis. In the past he has been considered not a candidate for any intervention from cardiac perspective due to his overall poor medical condition and psychosocial support. Given his significant RV enlargement, even cardiac perspective he is not a good candidate now for any intervention. Should consider palliative care. [facility] with a can not give him IV therapy. (5) Persistent atrial fibrillation: Status: Acute Atrial fibrillation, chronic. Unlikely that he would ever achieved rhythm control. Continue Coumadin with INR between 2 and 3. Continue rate control. (6) Severe mitral valve stenosis: Status: Acute Severe rheumatic mitral stenosis with now advanced right heart failure with significant RV enlargement is significant tricuspid regurgitation. His right heart failure as well unlikely to improve with correction of his mitral stenosis at this point in time. Extremely poor prognosis. Should discuss with family for palliative care. Will follow with the patient.
--- NOTE | 2020-12-12 11:25 | MHC.CM.PN ---
CM met with patient who reports he is independent and lives with his sister Michelle and nephew Syed. Patient has limitied insurance and does not qualify for SNF or home care. Patient does have a guardian brother Lisset [phone], a copy is on file. Discharge plan is home no services. jess Lynch [phone] will provide transport. PCP is Dr Lucretia Benites at [facility]. CM will continue to follow patient for discharge needs.
--- NOTE | 2020-12-12 12:05 | P.CONNP_ITS ---
History of Present Illness Reason for Consult Consult date: 12/12/20 Chief Complaint Chief complaint: generalized edema, hypothermia History of Present Illness Narrative: 60y/o m well known to renal service re-adm with diuretic resist TBFOL with h/o severe card dysfunc. admfor management of anasraca. C/O of urine and stool incontenece. no cP/SOB. Feels swollen Review of Systems Review of Systems Patient able to state that he is swelling with back, leg and abdominal pain Yes all other systems are reviewed and are negative, Unobtainable due to mental condition and Unobtainable due to mental status Denies Sensory deficit (Neuro) [facility] Past Medical History Medical History Acute retention of urine Afib CHF (congestive heart failure) Hepatic encephalopathy Persistent atrial fibrillation Quit consuming alcohol in remote past Schizophrenia Severe mitral valve stenosis Traumatic brain injury Family History Family History Father No problems noted. Mother HTN (hypertension) Social History Social History Household Members: Family Housing: Apartment Alcohol intake: never Smoking Status: Never smoker service: No Current occupational status: unemployed Meds Allergies Allergy/AdvReac Type Severity Reaction Status Date / Time Fish Containing Products Allergy Unknown UNKNOWN Verified 09/12/20 07:09 PEPPERS, JALAPENO Allergy Unknown UNKNOWN Uncoded 09/12/20 07:09 Home Medications Medication Instructions Recorded Confirmed Type digoxin [Digitek] 125 mcg PO DAILY 09/12/20 12/11/20 History omeprazole 40 mg PO DAILY 09/12/20 12/11/20 History risperidone 2 mg PO BID 09/12/20 12/11/20 History clotrimazole 1 appl TOPICAL BID 11/04/20 12/11/20 History warfarin 7.5 mg PO DAILY 11/20/20 12/11/20 History Physical Exam Vital Signs: Last Vital Signs Temp 97.4 F 12/12/20 06:00 Pulse 88 12/12/20 08:59 Resp 16 12/12/20 06:00 BP 104/64 12/12/20 06:00 Pulse Ox 99 12/12/20 06:00 Body Mass Index 21.4 Const Other: chronically ill appearing General: alert, awake, acute distress moderate and respiratory and ill appearing Nutritional Appearance: cachectic Orientation/consciousness: oriented to person and patient oriented x3 Limitations: no limitations HENMT Head: Yes normal to inspection Ears: external ears normal General nose exam: Normal external nose present Mouth: Normal oral and palatal mucosa present and oropharynx normal Throat: Yes posterior oropharynx normal Eyes Other: jaundiced General: appearance normal, both eyes and all related structures Neck Other: supple, jvd Neck: Yes normal visual inspection and Yes JVD Chest Chest palpation & inspection: normal inspection of the chest Resp Effort & Inspection: decreased respiratory effort Auscultation: clear to auscultation bilaterally and diminished lung sounds Cardio Other: chronically ill appearing Jugular venous distension: no JVD Palpation: abnormal PMI displaced PMI Rate: Other (irregular rate and rhythm) Rhythm: abnormal rhythm irregularly irregular Heart sounds: S1 normal heart sound present and S2 normal heart sound present GI Other: edema to abdomen Inspection: Yes normal to inspection and Yes distended Palpation (GI): Soft to palpation, nontender and No hepatosplenomegaly present Auscultation: normal bowel sounds General: Yes no CVA tenderness Back/Spine/Pelvis Back: no CVA tenderness Skin General skin exam: no rashes or lesions noted Neuro General: oriented to person and patient oriented x3 Cranial nerves: Yes CN's II-XII intact bilaterally Motor exam (neuro): 5/5 motor strength present throughout Sensory Exam: No Sensory deficit (Neuro) Extrem Other: chronic edema with skin changes to lower extremities, hard skin changes General: Yes edema Psych Appearance: grossly normal Results Lab Results Result Diagrams: 12/11/20 10:15 12/12/20 06:29 Lab results: Chemistry 12/11/20 12/12/20 10:15 06:29 Sodium 132 L 131 L Potassium 3.4 D 4.0 Carbon Dioxide 25 23 BUN 30 H 32 H Creatinine 1.59 H 1.73 H Calcium 8.4 8.4 Hematology 12/11/20 10:15 WBC 5.1 Hgb 9.1 L Plt Count 54 L D Urinalysis 12/11/20 15:26 Urine Color YELLOW Urine Appearance HAZY Urine pH 6.[address] [place] 1.020 Urine Protein NEG Urine Glucose (UA) NEG Urine Ketones NEG Urine Blood 2+ H Urine Nitrite NEG Ur Leukocyte Esterase NEG Urine RBC 10-14 H Urine WBC 5-9 H Ur Squamous Epith Cells NONE Hyaline Casts 5-9 Laboratory Tests 11/20/20 12/03/20 12/11/20 05:38 05:43 10:15 Creatinine 2.36 H 0.94 1.59 H 12/12/20 06:29 Creatinine 1.73 H Assessment and Plan (1) Hypothermia: Qualifiers: Encounter type: initial encounter Qualified Code(s): T68.XXXA - Hypothermia, initial encounter Status: Acute (2) Anasarca: Status: Acute (3) RUDY (acute kidney injury): Problem details: 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 RUDY;c/w CRSyndrome and with diuresis he may decongest and get improved renal function 2. TBFOL; d/t severe MS and card dysfunction 3. Anemia disc; appears to be relative diuretic resistantand may need farr and then outpt iV diuretics daily or 3-4x/wk as a means to avoid fluid recumlation and re-hosp rec; agree with bumex drip and zaroxlyn and track renal func/k and uop; avoid ntoxins; card to see and ques any additional interventions re severe MS; consider placement of farr for outpt IV diuretics; palliative care invovlement if indeed he is not a candidate for any additional card interventions
[2020-12-12] MEDS: Levothyroxine Sodium 75 MCG TABLET PO (12:07)
[2020-12-12] MEDS: Bumetanide 25 MG in Container,Empty 0 ML 6 MG IVCONT (12:43)
--- NOTE | 2020-12-12 15:31 | P.PNIM_ITS ---
Subjective Subjective Date of Service: 12/12/20 Interval History: Patient admitted with generalized edema, patient complaining of discomfort due to Alegre catheter, complaining of weakness, no other acute issues overnight. Review of Systems General no headache, no dizziness no fever chills. CVS no chest pain, no palpitation. Respiratory no cough, mild shortness of breath Gastrointestinal no nausea no vomiting, no abdominal pain Physical Exam Vital Signs: Vital Signs: Last Vital Signs Temp 97.9 F 12/12/20 12:00 Pulse 68 12/12/20 12:00 Resp 18 12/12/20 12:00 BP 101/66 12/12/20 12:00 Pulse Ox 97 12/12/20 12:00 Body Mass Index 21.4 General no acute distress. Puffy face Neck supple no JVD. CVS irregular Respiratory lungs clear to auscultation, no respiratory distress, no wheeze, no rhonchi. Gastrointestinal abdomen soft, nontender, bowel sounds audible,. Extremities generalized edema mostly both legs and thighs as well as scrotum, some clotted blood at urethral meatus Neuro nonfocal, moving all 4 extremities. Skin no rash Psych poor insight Objective Data Current Medications Generic Name Dose Route Start Last Admin Trade Name Freq PRN Reason Stop Dose Admin Acetaminophen 650 mg 12/11/20 16:54 Acetaminophen 325 Mg Tablet PO Q6H PRN PAIN Clotrimazole 1 appl 12/11/20 21:00 12/12/20 12:43 Clotrimazole 1 % Cream 15 Gm Tube TOPICAL Not Given BID EUSEBIO Digoxin 0.125 mg 12/12/20 09:00 12/12/20 08:59 Digoxin 0.125 Mg Tablet PO 0.125 mg DAILY EUSEBIO Administration Ceftriaxone Sodium 1 gm/ 50 mls @ 100 mls/hr 12/11/20 17:15 12/11/20 18:30 Sodium Chloride IV Infused Q24H EUSEBIO Infusion Bumetanide 25 mg/ IV 100 mls @ 6 mls/hr 12/12/20 11:00 12/12/20 12:43 Miscellaneous Supplies IVCONT 1.5 mg/hr .[id number] EUSEBIO 6 mls/hr Administration 1.5 MG/HR Levothyroxine Sodium 75 mcg 12/12/20 11:00 12/12/20 12:07 Levothyroxine Sodium 75 Mcg Tablet PO 75 mcg DAILY@0600 EUSEBIO Administration Loratadine 10 mg 12/12/20 09:00 12/12/20 08:59 Loratadine 10 Mg Tablet PO 10 mg DAILY [facility] Administration Magnesium Oxide 800 mg 12/12/20 09:00 12/12/20 08:59 Magnesium Oxide 400 Mg Tablet PO 800 mg DAILY EUSEBIO Administration Metolazone 2.5 mg 12/13/20 09:00 Metolazone 2.5 Mg Tablet PO DAILY [facility] Omeprazole 40 mg 12/12/20 09:00 12/12/20 08:59 Omeprazole 40 Mg Capsule.Dr PO 40 mg DAILY [facility] Administration Ondansetron HCl 4 mg 12/11/20 16:54 Ondansetron Hcl 4 Mg/2 Ml Vial IVPUSH Q8H PRN Nausea Pharmacy Consult 1 each 12/11/20 15:16 Consult Rx Perform Med Rec MISCELLANE ONCE PRN Consult order Potassium Chloride 20 meq 12/11/20 21:00 12/12/20 08:59 Potassium Chloride Er 20 Meq Tab.Er.Prt PO 20 meq BID [facility] Administration Warfarin Sodium 7.5 mg 12/12/20 18:00 Warfarin Sodium 7.5 Mg Tablet PO DAILY@1800 [facility] Labs CBC & Chem 7: 12/11/20 10:15 12/12/20 06:29 Microbiology Microbiology Results: Microbiology 12/11/20 10:16 Blood - Venous Blood Culture - Preliminary No growth after 24 hours. 12/11/20 10:15 Blood - Venous Blood Culture - Preliminary No growth after 24 hours. 12/11/20 16:30 Urine clean catch - Clean Catch Midstream Urine Culture - Preliminary Assessment and Plan (1) Hypothyroid: Status: Acute (2) Hypoglycemia: Status: Acute (3) Anasarca: Status: Acute (4) Right heart failure (secondary to left heart failure): Status: Acute (5) Acute on chronic right-sided congestive heart failure: Status: Acute (6) Hypothermia: Status: Acute (7) Severe mitral valve stenosis: Status: Acute (8) Persistent atrial fibrillation: Status: Acute Assessment and Plan: 60-year-old gentleman with past medical history significant for right-sided heart failure, pulmonary hypertension, severe mitral stenosis, recently discharged from [facility] 1 week ago, presented to [facility] due to generalized anasarca and significant fluid overload. The patient will be admitted to intermediate care unit for continued monitoring and treatment. 1. Acute on chronic right-sided congestive heart failure with generalized anasarca, due to severe mitral stenosis , severe pulmonary hypertension, recurrent hospitalization related to to right heart failure Is 1 L negative on iv Bumex bid and every other day metolazone Will place patient on IV Bumex drip and increase dose of metolazone to 2.5 mg daily Case discussed with Dr. Arteaga will need to increase dose of diuretics upon discharge, due to overall poor medical condition and lack off psychosocial support patient was considered not a candidate for any cardiac intervention Monitor daily weight Is&Os and follow BMP closely. 2. Acute kidney injury. Due to cardiorenal syndrome continue to diurese patient and follow renal function, being followed by Nephrology. 3. Atrial fibrillation. Stable ventricular rate continue digoxin, will hold metoprolol 12.5 b.i.d. to avoid hypotension while being aggressively diuresed continue tele monitor Continue Coumadin 7.5 mg INR 1.9 today follow INR daily 4. Hypothermia, likely related to hypothyroidism, poor cardiac output, hypoglycemia, now resolved. 5. Newly diagnosed hypothyroidism. Patient was diagnosed with hypothyroidism during last admission TSH trending up will increase dose of levothyroxine to 75 mcg 6. Mitral stenosis, severe. 7. History of thrombocytopenia and anemia. Stage hematocrit and platelet 8. Abnormal urinalysis, likely urinary tract infection/penile pain, continue IV ceftriaxone day 2, blood cultures x2 negative consult urology. 9. Code status is DNR DNI. Family is aware of poor prognosis. Spoke with sheyrl wasserman's brother Katy on phone #[phone]. Discussed code status with him. He wishes patient to be DNR DNI. If the patient does not respond to above treatment, then we will consider palliative care.
[2020-12-12] MEDS: Acetaminophen 325 MG TABLET 650 MG PO ×2 (15:56→22:38)
[2020-12-12] MEDS: cefTRIAXone sodium 1 GM in 0.9 % Sodium Chloride 50 ML IV (17:41)
[2020-12-12] MEDS: Warfarin Sodium 7.5 MG TABLET PO (17:42)
[2020-12-12] MEDS: Clotrimazole 1 % Cream 15 GM TUBE 1 APPL TOPICAL (20:58)
[2020-12-13] VITALS (8 sets, daily range): BP systolic 92–158; BP diastolic 63–93; PULSE 68–82; RESP 18–19; TEMP 35.9–36.8; O2SAT 95–100
[2020-12-13] MEDS: Bumetanide 25 MG in Container,Empty 0 ML 6 MG IVCONT ×2 (04:38→20:30)
[2020-12-13] MEDS: Levothyroxine Sodium 75 MCG TABLET PO (05:06)
[2020-12-13 06:45] LABS: INTERNATIONAL NORM RATIO 2.8 (0.9-1.1); Prothrombin Time 33.1 SEC (10.8-13.0)
[2020-12-13 07:15] LABS: Anion Gap 17 (12-20); Blood Urea Nitrogen 31 mg/dL (9-16); Calcium 8.5 mg/dL (8.4-10.2); Carbon Dioxide 27 mmol/L (22-29); Chloride 93 mmol/L (96-108); Creatinine Clr Calc Pharmacy 46.4; Estimated Glomerular Filt Rate 47; Glucose Random 45 mg/dL (60-115); Potassium 3.3 mmol/l (3.3-5.1); Sodium 134 mmol/L (135-145)
[2020-12-13 08:35] LABS: Glucose, Whole Blood 73 mg/dL (60-115)
[2020-12-13] MEDS: Clotrimazole 1 % Cream 15 GM TUBE 1 APPL TOPICAL ×2 (08:39→20:32)
[2020-12-13] MEDS: Magnesium Oxide 400 MG TABLET 800 MG PO (08:39)
[2020-12-13] MEDS: Omeprazole 40 MG CAPSULE.DR PO (08:39)
[2020-12-13] MEDS: Potassium Chloride ER 20 MEQ TAB.ER.PRT PO ×2 (08:39→20:30)
[2020-12-13] MEDS: metOLazone 2.5 MG TABLET PO (08:40)
[2020-12-13] MEDS: Digoxin 0.125 MG TABLET PO (08:40)
[2020-12-13] MEDS: Loratadine 10 MG TABLET PO (08:40)
--- NOTE | 2020-12-13 11:07 | P.PNNP_ITS ---
Subjective Subjective Date of Service: 12/13/20 Interval history: Seen and examined. Events noted Physical Exam Vital Signs: Vital Signs: Last Vital Signs Temp 97.5 F 12/13/20 08:29 Pulse 82 12/13/20 08:40 Resp 18 12/13/20 08:29 BP 92/69 12/13/20 08:29 Pulse Ox 98 12/13/20 08:29 Body Mass Index 21.4 Const: Other: chronically ill appearing General: alert, awake, acute distress moderate and respiratory and ill appearing Nutritional Appearance: cachectic Orientation/consciousness: oriented to person and patient oriented x3 Limitations: no limitations HENMT: Head: Yes normal to inspection Ears: external ears normal General nose exam: Normal external nose present Mouth: Normal oral and palatal mucosa present and oropharynx normal Throat: Yes posterior oropharynx normal Eyes: Other: jaundiced General: appearance normal, both eyes and all related structures Neck: Other: supple, jvd Neck: Yes normal visual inspection and Yes JVD Chest: Chest palpation & inspection: normal inspection of the chest Resp: Effort & Inspection: decreased respiratory effort Auscultation: clear to auscultation bilaterally and diminished lung sounds Cardio: Other: chronically ill appearing Jugular venous distension: no JVD Palpation: abnormal PMI displaced PMI Rate: Other (irregular rate and rhythm) Rhythm: abnormal rhythm irregularly irregular Heart sounds: S1 normal heart sound present and S2 normal heart sound present GI: Other: edema to abdomen Inspection: Yes normal to inspection and Yes distended Palpation (GI): Soft to palpation, nontender and No hepatos plenomegaly present Auscultation: normal bowel sounds : General: Yes no CVA tenderness Back/Spine/Pelvis: Back: no CVA tenderness Skin: General skin exam: no rashes or lesions noted Neuro: General: oriented to person and patient oriented x3 Cranial nerves: Yes CN's II-XII intact bilaterally Motor exam (neuro): 5/5 motor strength present throughout Sensory Exam: No Sensory deficit (Neuro) Extrem: Other: chronic edema with skin changes to lower extremities, hard skin changes General: Yes edema Psych: Appearance: grossly normal Objective Data Labs CBC & Chem 7: 12/11/20 10:15 12/13/20 05:59 Labs: Laboratory Results - last 24 hr 12/13/20 12/13/20 12/13/20 05:59 05:59 08:31 PT 33.1 H D INR 2.8 H Sodium 134 L Potassium 3.3 Chloride 93 L Carbon Dioxide 27 Anion Gap 17 BUN 31 H Creatinine 1.52 H Estim Creat Clear Calc 46.4 Estimated GFR 47 POC Glucose 73 Random Glucose 45 L* Calcium 8.5 Microbiology Microbiology Results: Microbiology 12/11/20 10:16 Blood - Venous Blood Culture - Preliminary No growth after 24 hours. 12/11/20 10:15 Blood - Venous Blood Culture - Preliminary No growth after 24 hours. 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 RUDY;c/w CRSyndrome and with diuresis he may decongest and get improved renal function 1.7 L net neg past 24 hrs on bumex drip/zaroxlyn 2. TBFOL; d/t severe MS and card dysfunction 3. Anemia disc; appears to be relative diuretic resistantand may need farr and then outpt iV diuretics daily or 3-4x/wk as a means to avoid fluid recumlation and re-hosp rec; cont with bumex drip and zaroxlyn and add aldactone 25 qd; track renal func/k and uop; avoid ntoxins; card to see and ques any additional interventions re severe MS; consider placement of farr for outpt IV diuretics to avoid readmissions; palliative care invovlement if indeed he is not a candidate for any additional card interventions Time Spent With Patient Time: Total time spent is greater than 50% in coordination of care (as do cumented) at patient's floor/unit and/or counseling patient:
--- NOTE | 2020-12-13 12:58 | PM.UROCN ---
History of Present Illness Consult details Consult date: 12/12/20 Narrative: ATSP re hydronephrosis No imaging evidence for hydronephrosis Managed by [facility] for BPH per outside documents Has hepato-renal issues No acute urology intervention required Review of Systems Review of Systems: Yes all other systems are reviewed and are negative Neurologic: Denies Sensory deficit (Neuro) [facility] Past Medical History Medical History Acute retention of urine Afib CHF (congestive heart failure) Hepatic encephalopathy Persistent atrial fibrillation Quit consuming alcohol in remote past Schizophrenia Severe mitral valve stenosis Traumatic brain injury Family History Family History Father No problems noted. Mother HTN (hypertension) Social History Social History Household Members: Family Housing: House Alcohol intake: never Smoking Status: Never smoker service: No Current occupational status: unemployed Meds Allergies Allergy/AdvReac Type Severity Reaction Status Date / Time Fish Containing Products Allergy Unknown UNKNOWN Verified 09/12/20 07:09 PEPPERS, JALAPENO Allergy Unknown UNKNOWN Uncoded 09/12/20 07:09 Home Medications Medication Instructions Recorded Confirmed Type digoxin [Digitek] 125 mcg PO DAILY 09/12/20 12/11/20 History omeprazole 40 mg PO DAILY 09/12/20 12/11/20 History risperidone 2 mg PO BID 09/12/20 12/11/20 History clotrimazole 1 appl TOPICAL BID 11/04/20 12/11/20 History warfarin 7.5 mg PO DAILY 11/20/20 12/11/20 History Physical Exam Vital Signs: Vital Signs: Last Vital Signs Temp 97.9 F 12/13/20 12:47 Pulse 76 12/13/20 12:47 Resp 18 12/13/20 12:47 BP 105/68 12/13/20 12:47 Pulse Ox 98 12/13/20 12:47 Body Mass Index 21.4 Const: General: comfortable and no acute distress; No healthy appearing Nutritional Appearance: average body habitus and cachectic Orientation/consciousness: oriented to place and oriented to time Eyes: General: appearance normal, both eyes and all related structures Chest: Chest palpation & inspection: normal inspection of the chest Resp: Effort & Inspection: normal respiratory effort Cardio: Rate: regular rate GI: Inspection: Yes normal to inspection Skin: Hair: normal Neuro: General: oriented to place and oriented to time Sensory Exam: No Sensory deficit (Neuro) Extrem: General: Yes normal to inspection Results Labs Result diagrams: 12/11/20 10:15 12/13/20 05:59 Labs: Abnormal lab results 12/13/20 12/13/20 Range/Units 05:59 05:59 PT 33.1 H D (10.8-13.0) SEC INR 2.8 H (0.9-1.1) Sodium 134 L (135-145) mmol/L Chloride 93 L (96-108) mmol/L BUN 31 H (9-16) mg/dL Creatinine 1.52 H (0.5-1.4) mg/dL Random Glucose 45 L* (60-115) mg/dL BMP 12/13/20 05:59 Sodium 134 L Potassium 3.3 Chloride 93 L Carbon Dioxide 27 BUN 31 H Creatinine 1.52 H Calcium 8.5 Urine 12/11/20 Range/Units 15:26 Urine Color YELLOW Urine Appearance HAZY Urine pH 6.0 (5.0-8.0) Ur Specific [place] 1.020 (1.005-1.025) Urine Protein NEG (NEG-TRACE) MG/DL Urine Glucose (UA) NEG (NEG) MG/DL All other labs normal. Assessment and Plan (1) Hydronephrosis: Status: Acute See above No urologic issues currently
--- NOTE | 2020-12-13 14:18 | P.PNCA_ITS ---
Subjective Subjective Date of Service: 12/13/20 Principal diagnosis: Right heart failure, acute kidney injury Interval history: Patient is diuresing with IV Bumex drip. Creatinine is improved slightly. Leg edema improving. Review of Systems Review of Systems Yes Unobtainable due to mental condition Denies Sensory deficit (Neuro) Physical Exam Vital Signs: Last Vital Signs Temp 97.9 F 12/13/20 12:47 Pulse 76 12/13/20 12:47 Resp 18 12/13/20 12:47 BP 105/68 12/13/20 12:47 Pulse Ox 98 12/13/20 12:47 Body Mass Index 21.4 Const General: alert, awake, acute distress mild and respiratory and ill appearing Nutritional Appearance: cachectic Neck Neck: Yes trachea midline, Yes supple and Yes JVD Resp Effort & Inspection: decreased respiratory effort Auscultation: diminished lung sounds Cardio Palpation: abnormal PMI displaced PMI Rhythm: abnormal rhythm irregularly irregular Heart sounds: S1 normal heart sound present and S2 normal heart sound present Skin General skin exam: ecchymosis Neuro Sensory Exam: No Sensory deficit (Neuro) Extrem General: Yes edema Results Labs and Meds Result diagrams: 12/11/20 10:15 12/13/20 05:59 Lab results: Laboratory Results - last 24 hr 12/13/20 12/13/20 12/13/20 05:59 05:59 08:31 PT 33.1 H D INR 2.8 H Sodium 134 L Potassium 3.3 Chloride 93 L Carbon Dioxide 27 Anion Gap 17 BUN 31 H Creatinine 1.52 H Estim Creat Clear Calc 46.4 Estimated GFR 47 POC Glucose 73 Random Glucose 45 L* Calcium 8.5 Progress Note: A&P Assessment and plan (1) Right heart failure (secondary to left heart failure): Status: Acute Assessment and Plan: Advanced right heart failure secondary to RV enlargement secondary severe pulmonary hypertension secondary severe mitral stenosis. Not a candidate for any interventional cardiac therapy with valve replacement given significant adv anced RV dysfunction. Has had multiple recurrent hospitalizations related to the same. Continue IV Bumex drip. Creatinine slowly improving. Continue strict I's and nose Q shift. Continue to trend BMP. Will continue to follow the patient. Prognosis extremely limited. To avoid repeated hospitalization, need to discuss with visiting nurses whether he can be given IV diuretics at home. Continue metolazone therapy. 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 Continue diuresis. Creatinine is gradually improving. (3) Persistent atrial fibrillation: Status: Acute Assessment and Plan: Atrial fibrillation, currently rate controlled. Continue current rate control strategy. Continue warfarin therapy with INR between 2 and 3. Will follow the patient. Fall Risk Details Current Medications: Current Medications Generic Name Dose Route Start Last Admin Trade Name Freq PRN Reason Stop Dose Admin Acetaminophen 650 mg 12/11/20 16:54 12/12/20 22:38 Acetaminophen 325 Mg Tablet PO 650 mg Q6H PRN Administration PAIN Clotrimazole 1 appl 12/11/20 21:00 12/13/20 08:39 Clotrimazole 1 % Cream 15 Gm Tube TOPICAL 1 appl BID EUSEBIO Administration Digoxin 0.125 mg 12/12/20 09:00 12/13/20 08:40 Digoxin 0.125 Mg Tablet PO 0.125 mg DAILY EUSEBIO Administration Ceftriaxone Sodium 1 gm/ 50 mls @ 100 mls/hr 12/11/20 17:15 12/12/20 18:18 Sodium Chloride IV Infused Q24H EUSEBIO Infusion Bumetanide 25 mg/ IV 100 mls @ 6 mls/hr 12/12/20 11:00 12/13/20 04:38 Miscellaneous Supplies IVCONT 1.5 mg/hr .[id number] EUSEBIO 6 mls/hr Administration 1.5 MG/HR Levothyroxine Sodium 75 mcg 12/12/20 11:00 12/13/20 05:06 Levothyroxine Sodium 75 Mcg Tablet PO 75 mcg DAILY@0600 EUSEBIO Administration Loratadine 10 mg 12/12/20 09:00 12/13/20 08:40 Loratadine 10 Mg Tablet PO 10 mg DAILY EUSEBIO Administration Magnesium Oxide 800 mg 12/12/20 09:00 12/13/20 08:39 Magnesium Oxide 400 Mg Tablet PO 800 mg DAILY EUSEBIO Administration Metolazone 2.5 mg 12/13/20 09:00 12/13/20 08:40 Metolazone 2.5 Mg Tablet PO 2.5 mg DAILY EUSEBIO Administration Omeprazole 40 mg 12/12/20 09:00 12/13/20 08:39 Omeprazole 40 Mg Capsule.Dr PO 40 mg DAILY EUSEBIO Administration Ondansetron HCl 4 mg 12/11/20 16:54 Ondansetron Hcl 4 Mg/2 Ml Vial IVPUSH Q8H PRN Nausea Pharmacy Consult 1 each 12/11/20 15:16 Consult Rx Perform Med Rec MISCELLANE ONCE PRN Consult order Potassium Chloride 20 meq 12/11/20 21:00 12/13/20 08:39 Potassium Chloride Er 20 Meq Tab.Er.Prt PO 20 meq BID EUSEBIO Administration Warfarin Sodium 7.5 mg 12/12/20 18:00 12/12/20 17:42 Warfarin Sodium 7.5 Mg Tablet PO 7.5 mg DAILY@1800 EUSEBIO Administration Time Spent With Patient Time: Total time spent is greater than 50% in coordination of care (as documented) at patient's floor/unit and/or counseling patient: Time with patient: 25 - 35 minutes
--- NOTE | 2020-12-13 15:30 | P.PNIM_ITS ---
Subjective Subjective Date of Service: 12/13/20 Interval History: Patient admitted with generalized edema, remains confuse denies any complaint Review of Systems General no headache, no dizziness no fever chills. CVS no chest pain, no palpitation. Respiratory no cough, mild shortness of breath Gastrointestinal no nausea no vomiting, no abdominal pain Neurologic Neurologic: Denies Sensory deficit (Neuro) Physical Exam Vital Signs: Vital Signs: Last Vital Signs Temp 96.6 F L 12/13/20 15:17 Pulse 80 12/13/20 15:17 Resp 19 12/13/20 15:17 BP 134/93 H 12/13/20 15:17 Pulse Ox 99 12/13/20 15:17 Body Mass Index 21.4 Const: Other: chronically ill appearing General: comfortable, no acute distress, alert, awake, acute distress mild and respiratory and ill appearing; No healthy appearing Nutritional Appearance: average body habitus and cachectic Orientation/consciousness: oriented to person, oriented to place, oriented to time and patient oriented x3 Limitations: no limitations HENMT: Head: Yes normal to inspection Ears: external ears normal General nose exam: Normal external nose present Mouth: Normal oral and palatal mucosa present and oropharynx normal Throat: Yes posterior oropharynx normal Eyes: Other: jaundiced General: appearance normal, both eyes and all related structures Neck: Other: supple, jvd Neck: Yes normal visual inspection, Yes trachea midline, Yes supple and Yes JVD Chest: Chest palpation & inspection: normal inspection of the chest Resp: Effort & Inspection: normal respiratory effort and decreased respiratory effort Auscultation: clear to auscultation bilaterally and diminished lung sounds Cardio: Other: chronically ill appearing Jugular venous distension: no JVD Palpation: abnormal PMI displaced PMI Rate: regular rate and Other (irregular rate and rhythm) Rhythm: abnormal rhythm irregularly irregular Heart sounds: S1 normal heart sound present and S2 normal heart sound present GI: Other: edema to abdomen Inspection: Yes normal to inspection and Yes distended Palpation (GI): Soft to palpation, nontender and No he patosplenomegaly present Auscultation: normal bowel sounds : General: Yes no CVA tenderness Back/Spine/Pelvis: Back: no CVA tenderness Skin: General skin exam: no rashes or lesions noted and ecchymosis Hair: normal Neuro: General: oriented to person, oriented to place, oriented to time and patient oriented x3 Cranial nerves: Yes CN's II-XII intact bilaterally Motor exam (neuro): 5/5 motor strength present throughout Sensory Exam: No Sensory deficit (Neuro) Extrem: Other: chronic edema with skin changes to lower extremities, hard skin changes General: Yes normal to inspection and Yes edema Psych: Appearance: grossly normal Objective Data Current Medications Generic Name Dose Route Start Last Admin Trade Name Freq PRN Reason Stop Dose Admin Acetaminophen 650 mg 12/11/20 16:54 12/12/20 22:38 Acetaminophen 325 Mg Tablet PO 650 mg Q6H PRN Administration PAIN Clotrimazole 1 appl 12/11/20 21:00 12/13/20 08:39 Clotrimazole 1 % Cream 15 Gm Tube TOPICAL 1 appl BID EUSEBIO Administration Digoxin 0.125 mg 12/12/20 09:00 12/13/20 08:40 Digoxin 0.125 Mg Tablet PO 0.125 mg DAILY EUSEBIO Administration Ceftriaxone Sodium 1 gm/ 50 mls @ 100 mls/hr 12/11/20 17:15 12/12/20 18:18 Sodium Chloride IV Infused Q24H EUSEBIO Infusion Bumetanide 25 mg/ IV 100 mls @ 6 mls/hr 12/12/20 11:00 12/13/20 04:38 Miscellaneous Supplies IVCONT 1.5 mg/hr .[id number] EUSEBIO 6 mls/hr Administration 1.5 MG/HR Levothyroxine Sodium 75 mcg 12/12/20 11:00 12/13/20 05:06 Levothyroxine Sodium 75 Mcg Tablet PO 75 mcg DAILY@0600 EUSEBIO Administration Loratadine 10 mg 12/12/20 09:00 12/13/20 08:40 Loratadine 10 Mg Tablet PO 10 mg DAILY EUSEBIO Administration Magnesium Oxide 800 mg 12/12/20 09:00 12/13/20 08:39 Magnesium Oxide 400 Mg Tablet PO 800 mg DAILY EUSEBIO Administration Metolazone 2.5 mg 12/13/20 09:00 12/13/20 08:40 Metolazone 2.5 Mg Tablet PO 2.5 mg DAILY EUSEBIO Administration Omeprazole 40 mg 12/12/20 09:00 12/13/20 08:39 Omeprazole 40 Mg Capsule.Dr PO 40 mg DAILY EUSEBIO Administration Ondansetron HCl 4 mg 12/11/20 16:54 Ondansetron Hcl 4 Mg/2 Ml Vial IVPUSH Q8H PRN Nausea Pharmacy Consult 1 each 12/11/20 15:16 Consult Rx Perform Med Rec MISCELLANE ONCE PRN Consult order Potassium Chloride 20 meq 12/11/20 21:00 12/13/20 08:39 Potassium Chloride Er 20 Meq Tab.Er.Prt PO 20 meq BID EUSEBIO Administration Warfarin Sodium 7.5 mg 12/12/20 18:00 12/12/20 17:42 Warfarin Sodium 7.5 Mg Tablet PO 7.5 mg DAILY@1800 EUSEBIO Administration Labs CBC & Chem 7: 12/11/20 10:15 12/13/20 05:59 Microbiology Microbiology Results: Microbiology 12/11/20 10:16 Blood - Venous Blood Culture - Preliminary No growth after 48 hours. 12/11/20 10:15 Blood - Venous Blood Culture - Preliminary No growth after 48 hours. 12/11/20 16:30 Urine clean catch - Clean Catch Midstream Urine Culture - Preliminary Enterococcus/Streptococcus sp Assessment and Plan (1) Hypothyroid: Status: Acute (2) Hypoglycemia: Status: Acute (3) Anasarca: Status: Acute (4) Right heart failure (secondary to left heart failure): Status: Acute (5) Acute on chronic right-sided congestive heart failure: Status: Acute (6) Hypothermia: Status: Acute (7) Severe mitral valve stenosis: Status: Acute (8) Persistent atrial fibrillation: Status: Acute Assessment and Plan: 60-year-old gentleman with past medical history significant for right-sided heart failure, pulmonary hypertension, severe mitral stenosis, recently discharged from [facility] 1 week ago, presented to [facility] due to generalized anasarca and significant fluid overload. The patient will be admitted to intermediate care unit for continued monitoring and treatment. 1. Acute on chronic right-sided congestive heart failure with generalized anasarca, due to severe mitral stenosis , severe pulmonary hypertension, recurrent hospitalization related to to right heart failure Is 1 L negative on iv Bumex bid and every other day metolazone continue IV Bumex drip and increase dose of metolazone to 2.5 mg daily cardiology following Monitor daily weight Is&Os and follow BMP closely. 2. Acute kidney injury. Due to cardiorenal syndrome continue to diurese patient monitor renal function, being followed by Nephrology. 3. Atrial fibrillation. Stable ventricular rate continue digoxin, lopressor on hold avoid hypotension Continue Coumadin 7.5 mg INR 1.9 today follow INR daily 4. Hypothermia, likely related to hypothyroidism, poor cardiac output, hypoglycemia, now resolved. 5. Newly diagnosed hypothyroidism. Patient was diagnosed with hypothyroidism during last admission TSH trending up will increase dose of levothyroxine to 75 mcg 7. History of thrombocytopenia and anemia. Stage hematocrit and platelet 8. Abnormal urinalysis, likely urinary tract infection/penile pain, continue IV ceftriaxone day 2, blood cultures x2 negative consult urology. 9. Code status is DNR DNI. Family is aware of poor prognosis. Spoke with patient's brother Katy on phone #[phone]. Discussed code status with him. He wishes patient to be DNR DNI. If the patient does not respond to above treatment, then we will consider palliative care.
[2020-12-13] MEDS: cefTRIAXone sodium 1 GM in 0.9 % Sodium Chloride 50 ML IV (17:13)
[2020-12-13] MEDS: Acetaminophen 325 MG TABLET 650 MG PO (17:48)
[2020-12-14] VITALS (7 sets, daily range): BP systolic 99–146; BP diastolic 49–89; PULSE 72–96; RESP 18–20; TEMP 36.2–37.1; O2SAT 93–99
[2020-12-14] MEDS: Levothyroxine Sodium 75 MCG TABLET PO (05:58)
[2020-12-14 08:40] LABS: INTERNATIONAL NORM RATIO 4.3 (0.9-1.1); Prothrombin Time 51.4 SEC (10.8-13.0)
[2020-12-14 09:08] LABS: Anion Gap 15 (12-20); Blood Urea Nitrogen 27 mg/dL (9-16); Calcium 8.5 mg/dL (8.4-10.2); Carbon Dioxide 33 mmol/L (22-29); Chloride 88 mmol/L (96-108); Creatinine Clr Calc Pharmacy 50.7; Estimated Glomerular Filt Rate 52; Glucose Random 49 mg/dL (60-115); Potassium 2.9 mmol/l (3.3-5.1); Sodium 133 mmol/L (135-145)
[2020-12-14 09:21] LABS: Glucose, Whole Blood 56 mg/dL (60-115)
[2020-12-14 09:54] LABS: Glucose, Whole Blood 101 mg/dL (60-115)
[2020-12-14] MEDS: Clotrimazole 1 % Cream 15 GM TUBE 1 APPL TOPICAL ×2 (10:07→21:56)
[2020-12-14] MEDS: Magnesium Oxide 400 MG TABLET 800 MG PO (10:07)
[2020-12-14] MEDS: Loratadine 10 MG TABLET PO (10:07)
[2020-12-14] MEDS: Digoxin 0.125 MG TABLET PO (10:07)
[2020-12-14] MEDS: Omeprazole 40 MG CAPSULE.DR PO (10:07)
[2020-12-14] MEDS: Potassium Chloride ER 20 MEQ TAB.ER.PRT PO ×2 (10:07→21:51)
[2020-12-14] MEDS: metOLazone 2.5 MG TABLET PO (10:08)
[2020-12-14] MEDS: Bumetanide 25 MG in Container,Empty 0 ML 6 MG IVCONT (10:15)
--- NOTE | 2020-12-14 11:00 | P.PNCA_ITS ---
Subjective Subjective Date of Service: 12/14/20 Principal diagnosis: Right heart failure, acute kidney injury Interval history: Patient diuresing well. Kidney function improving. Much more alert. Not short of breath. Says he feels tired and weak Review of Systems Constitutional: Denies body ache(s), Denies chills, Reports fatigue, Denies fever(s), Reports lethargy and Reports malaise Cardiovascular: Reports no additional cardiovascular complaints Respiratory: Reports no additional respiratory complaints Musculoskeletal: Reports no additional musculoskeletal complaints Denies Sensory deficit (Neuro) Endocrine: Reports fatigue Allergic/Immunologic: Reports no additional allergic/immunologic complaints Physical Exam Vital Signs: Last Vital Signs Temp 97.3 F 12/14/20 08:00 Pulse 92 12/14/20 10:07 Resp 20 12/14/20 08:00 BP 114/62 12/14/20 08:00 Pulse Ox 98 12/14/20 08:00 Body Mass Index 21.4 Const General: alert, awake and ill appearing Nutritional Appearance: cachectic Neck Neck: Yes trachea midline, Yes supple and Yes JVD Resp Effort & Inspection: decreased respiratory effort Auscultation: no rales and no wheezes Cardio Rhythm: abnormal rhythm irregularly irregular Heart sounds: S1 normal heart sound present and S2 normal heart sound present Skin General skin exam: no rashes or lesions noted and erythema Neuro Sensory Exam: No Sensory deficit (Neuro) Extrem General: Yes edema Results Labs and Meds Result diagrams: 12/11/20 10:15 12/14/20 08:13 Lab results: Laboratory Results - last 24 hr 12/14/20 12/14/20 12/14/20 08:13 08:13 09:18 PT 51.4 H D INR 4.3 H Sodium 133 L Potassium 2.9 L Chloride 88 L Carbon Dioxide 33 H Anion Gap 15 BUN 27 H Creatinine 1.39 Estim Creat Clear Calc 50.7 Estimated GFR 52 POC Glucose 56 L* Random Glucose 49 L* Calcium 8.5 12/14/20 09:50 PT INR Sodium Potassium Chloride Carbon Dioxide Anion Gap BUN Creatinine Estim Creat Clear Calc Estimated GFR POC Glucose 101 Random Glucose Calcium Progress Note: A&P Assessment and plan (1) Right heart failure (secondary to left heart failure): Status: Acute Assessment and Plan: Right heart failure secondary to significant RV enlargement secondary to pulmonary hypertension secondary to severe mitral stenosis. Advanced right heart failure symptoms. Has had multiple hospitalization related to decompensat ion. Improving with IV Bumex drip. Future management will be difficult. If continues to diurese in kidney functions are better tomorrow will switch to IV Bumex b.i.d. 3 mg. If this can be pursued as outpatient with the central line would be most ideal to avoid recurrent hospitalization. Will need to work with case management about the same. Continue metolazone therapy. Continue to trend BMP. Strict intake and output chart needs to be pursued. Prognosis extremely poor and guarded. (2) RUDY (acute kidney injury): Problem details: 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 patient with severe mitral stenosis Hyponatremia improved/stable; C/W diuresis/supportive care Shall arrange follow up when D/Maicol Status: Acute Assessment and Plan: Acute kidney injury related to cardiorenal syndrome due to renal capsule congestion as well as poor stroke volume with RV enlargement. Improving with diuresis. Continue the same. Continue to trend BMP (3) Persistent atrial fibrillation: Status: Acute Assessment and Plan: Atrial fibrillation with adequate rate control. Continue warfarin therapy. Continue current rate control. Maintain target INR between 2 and 3. Will sign of the case. Please feel free to contact us Fall Risk Details Current Medications: Current Medications Generic Name Dose Route Start Last Admin Trade Name Freq PRN Reason Stop Dose Admin Acetaminophen 650 mg 12/11/20 16:54 12/13/20 17:48 Acetaminophen 325 Mg Tablet PO 650 mg Q6H PRN Administration PAIN Clotrimazole 1 appl 12/11/20 21:00 12/14/20 10:07 Clotrimazole 1 % Cream 15 Gm Tube TOPICAL 1 appl BID EUSEBIO Administration Digoxin 0.125 mg 12/12/20 09:00 12/14/20 10:07 Digoxin 0.125 Mg Tablet PO 0.125 mg DAILY EUSEBIO Administration Ceftriaxone Sodium 1 gm/ 50 mls @ 100 mls/hr 12/11/20 17:15 12/13/20 17:51 Sodium Chloride IV Infused Q24H EUSEBIO Infusion Bumetanide 25 mg/ IV 100 mls @ 6 mls/hr 12/12/20 11:00 12/14/20 10:15 Miscellaneous Supplies IVCONT 1.5 mg/hr .[id number] EUSEBIO 6 mls/hr Administration 1.5 MG/HR Levothyroxine Sodium 75 mcg 12/12/20 11:00 12/14/20 05:58 Levothyroxine Sodium 75 Mcg Tablet PO 75 mcg DAILY@0600 EUSEBIO Administration Loratadine 10 mg 12/12/20 09:00 12/14/20 10:07 Loratadine 10 Mg Tablet PO 10 mg DAILY EUSEBIO Administration Magnesium Oxide 800 mg 12/12/20 09:00 12/14/20 10:07 Magnesium Oxide 400 Mg Tablet PO 800 mg DAILY EUSEBIO Administration Metolazone 2.5 mg 12/13/20 09:00 12/14/20 10:08 Metolazone 2.5 Mg Tablet PO 2.5 mg DAILY EUSEBIO Administration Omeprazole 40 mg 12/12/20 09:00 12/14/20 10:07 Omeprazole 40 Mg Capsule.Dr PO 40 mg DAILY EUSEBIO Administration Ondansetron HCl 4 mg 12/11/20 16:54 Ondansetron Hcl 4 Mg/2 Ml Vial IVPUSH Q8H PRN Nausea Pharmacy Consult 1 each 12/11/20 15:16 Consult Rx Perform Med Rec MISCELLANE ONCE PRN Consult order Potassium Chloride 20 meq 12/11/20 21:00 12/14/20 10:07 Potassium Chloride Er 20 Meq Tab.Er.Prt PO 20 meq BID EUSEBIO Administration Warfarin Sodium 7.5 mg 12/12/20 18:00 12/12/20 17:42 Warfarin Sodium 7.5 Mg Tablet PO 7.5 mg DAILY@1800 EUSEBIO Administration Time Spent With Patient Time: Total time spent is greater than 50% in coordination of care (as documented) at patient's floor/unit and/or counseling patient: Time with patient: 25 - 35 minutes
[2020-12-14 11:39] LABS: Glucose, Whole Blood 122 mg/dL (60-115)
[2020-12-14] MEDS: Potassium Chloride Packet 20 MEQ PACKET 40 MEQ PO (11:48)
--- NOTE | 2020-12-14 13:04 | P.PNIM_ITS ---
Subjective Subjective Date of Service: 12/14/20 Interval History: Patient admitted with generalized edema, remains confuse denies any complaint Review of Systems General no headache, no dizziness no fever chills. CVS no chest pain, no palpitation. Respiratory no cough, mild shortness of breath Gastrointestinal no nausea no vomiting, no abdominal pain Neurologic Neurologic: Denies Sensory deficit (Neuro) Physical Exam Vital Signs: Vital Signs: Last Vital Signs Temp 97.7 F 12/14/20 11:54 Pulse 93 12/14/20 11:54 Resp 18 12/14/20 11:54 BP 114/65 12/14/20 11:54 Pulse Ox 99 12/14/20 11:54 Body Mass Index 21.4 Const: Other: chronically ill appearing General: comfortable, no acute distress, alert, awake, acute distress mild and respiratory and ill appearing; No healthy appearing Nutritional Appearance: average body habitus and cachectic Orientation/consciousness: oriented to person, oriented to place, oriented to time and patient oriented x3 Limitations: no limitations HENMT: Head: Yes normal to inspection Ears: external ears normal General nose exam: Normal external nose present Mouth: Normal oral and palatal mucosa present and oropharynx normal Throat: Yes posterior oropharynx normal Eyes: Other: jaundiced General: appearance normal, both eyes and all related structures Neck: Other: supple, jvd Neck: Yes normal visual inspection, Yes trachea midline, Yes supple and Yes JVD Chest: Chest palpation & inspection: normal inspection of the chest Resp: Effort & Inspection: normal respiratory effort and decreased respiratory effort Auscultation: clear to auscultation bilaterally and diminished lung sounds Cardio: Other: chronically ill appearing Jugular venous distension: no JVD Palpation: abnormal PMI displaced PMI Rate: regular rate and Other (irregular rate and rhythm) Rhythm: abnormal rhythm irregularly irregular Heart sounds: S1 normal heart sound present and S2 normal heart sound present GI: Other: edema to abdomen Inspection: Yes normal to inspection and Yes distended Palpation (GI): Soft to palpation, nontender and No he patosplenomegaly present Auscultation: normal bowel sounds : General: Yes no CVA tenderness Back/Spine/Pelvis: Back: no CVA tenderness Skin: General skin exam: no rashes or lesions noted and ecchymosis Hair: normal Neuro: General: oriented to person, oriented to place, oriented to time and patient oriented x3 Cranial nerves: Yes CN's II-XII intact bilaterally Motor exam (neuro): 5/5 motor strength present throughout Sensory Exam: No Sensory deficit (Neuro) Extrem: Other: chronic edema with skin changes to lower extremities, hard skin changes General: Yes normal to inspection and Yes edema Psych: Appearance: grossly normal Objective Data Current Medications Generic Name Dose Route Start Last Admin Trade Name Freq PRN Reason Stop Dose Admin Acetaminophen 650 mg 12/11/20 16:54 12/13/20 17:48 Acetaminophen 325 Mg Tablet PO 650 mg Q6H PRN Administration PAIN Clotrimazole 1 appl 12/11/20 21:00 12/14/20 10:07 Clotrimazole 1 % Cream 15 Gm Tube TOPICAL 1 appl BID EUSEBIO Administration Digoxin 0.125 mg 12/12/20 09:00 12/14/20 10:07 Digoxin 0.125 Mg Tablet PO 0.125 mg DAILY EUSEBIO Administration Ceftriaxone Sodium 1 gm/ 50 mls @ 100 mls/hr 12/11/20 17:15 12/13/20 17:51 Sodium Chloride IV Infused Q24H EUSEBIO Infusion Bumetanide 25 mg/ IV 100 mls @ 6 mls/hr 12/12/20 11:00 12/14/20 12:56 Miscellaneous Supplies IVCONT Not Given .[id number] EUSEBIO 1.5 MG/HR Levothyroxine Sodium 75 mcg 12/12/20 11:00 12/14/20 05:58 Levothyroxine Sodium 75 Mcg Tablet PO 75 mcg DAILY@0600 EUSEBIO Administration Loratadine 10 mg 12/12/20 09:00 12/14/20 10:07 Loratadine 10 Mg Tablet PO 10 mg DAILY EUSEBIO Administration Magnesium Oxide 800 mg 12/12/20 09:00 12/14/20 10:07 Magnesium Oxide 400 Mg Tablet PO 800 mg DAILY EUSEBIO Administration Metolazone 2.5 mg 12/13/20 09:00 12/14/20 10:08 Metolazone 2.5 Mg Tablet PO 2.5 mg DAILY EUSEBIO Administration Omeprazole 40 mg 12/12/20 09:00 12/14/20 10:07 Omeprazole 40 Mg Capsule. PO 40 mg DAILY EUSEBIO Administration Ondansetron HCl 4 mg 12/11/20 16:54 Ondansetron Hcl 4 Mg/2 Ml Vial IVPUSH Q8H PRN Nausea Pharmacy Consult 1 each 12/11/20 15:16 Consult Rx Perform Med Rec MISCELLANE ONCE PRN Consult order Potassium Chloride 20 meq 12/11/20 21:00 12/14/20 10:07 Potassium Chloride Er 20 Meq Tab.Er.Prt PO 20 meq BID EUSEBIO Administration Warfarin Sodium 7.5 mg 12/12/20 18:00 12/12/20 17:42 Warfarin Sodium 7.5 Mg Tablet PO 7.5 mg DAILY@1800 EUSEBIO Administration Labs CBC & Chem 7: 12/11/20 10:15 12/14/20 08:13 Microbiology Microbiology Results: Microbiology 12/11/20 16:30 Urine clean catch - Clean Catch Midstream Urine Culture - Final Enterococcus faecalis 12/11/20 10:16 Blood - Venous Blood Culture - Preliminary No growth after 48 hours. 12/11/20 10:15 Blood - Venous Blood Culture - Preliminary No growth after 48 hours. Assessment and Plan (1) Hypothyroid: Status: Acute (2) Hypoglycemia: Status: Acute (3) Anasarca: Status: Acute (4) Right heart failure (secondary to left heart failure): Status: Acute (5) Acute on chronic right-sided congestive heart failure: Status: Acute (6) Hypothermia: Status: Acute (7) Severe mitral valve stenosis: Status: Acute (8) Persistent atrial fibrillation: Status: Acute Assessment and Plan: 60-year-old gentleman with past medical history significant for right-sided heart failure, pulmonary hypertension, severe mitral stenosis, recently discharged from [facility] 1 week ago, presented to [facility] due to generalized anasarca and significant fluid overload. The patient will be a dmitted to intermediate care unit for continued monitoring and treatment. Acute on chronic right-sided congestive heart failure with generalized anasarca, due to severe mitral stenosis , severe pulmonary hypertension, recurrent hospitalization related to to right heart failure Edema slowly improving continue IV Bumex drip and increase dose of metolazone to 2.5 mg daily cardiology following Monitor daily weight Is&Os and follow BMP closely. Abnormal urinalysis, likely urinary tract infection/penile pain, continue IV ceftriaxone day 2, blood cultures x2 negative consult urology. Acute kidney injury. Due to cardiorenal syndrome continue to diurese patient monitor renal function, being followed by Nephrology. Atrial fibrillation. Stable ventricular rate continue digoxin, lopressor on hold avoid hypotension Continue Coumadin 7.5 mg INR 1.9 today follow INR daily Hypothermia, likely related to hypothyroidism, poor cardiac output, hypoglycemia, now resolved. Newly diagnosed hypothyroidism. Patient was diagnosed with hypothyroidism during last admission TSH trending up will increase dose of levothyroxine to 75 mcg History of thrombocytopenia and anemia. Monitor H&H Code status is DNR DNI. Family is aware of poor prognosis. Spoke with syeda jones's brother Katy on phone #[phone]. Discussed code status with him. He wishes patient to be DNR DNI. If the patient does not respond to above treatment, then we will consider palliative care.
[2020-12-14] MEDS: cefTRIAXone sodium 1 GM in 0.9 % Sodium Chloride 50 ML IV (16:17)
[2020-12-14 16:24] LABS: Glucose, Whole Blood 105 mg/dL (60-115)
--- NOTE | 2020-12-14 18:03 | PC.NURSE ---
Patient INR 4.3 on 12/14, Dr. Crowder notified and orders received to hold evening Coumadin.
--- NOTE | 2020-12-14 22:35 | PM.PNNEP ---
Subjective Subjective Date of Service: 12/14/20 Principal diagnosis: Right heart failure, acute kidney injury Interval history: Patient admitted with generalized edema, remains confuse denies any complaint Physical Exam Vital Signs: Vital Signs: Last Vital Signs Temp 97.7 F 12/14/20 19:26 Pulse 89 12/14/20 19:26 Resp 19 12/14/20 19:26 BP 100/49 L 12/14/20 19:26 Pulse Ox 93 12/14/20 19:26 Body Mass Index 21.4 Const: Other: chronically ill appearing General: alert, awake, acute distress moderate and respiratory and ill appearing Nutritional Appearance: cachectic Orientation/consciousness: oriented to person and patient oriented x3 Limitations: no limitations HENMT: Head: Yes normal to inspection Ears: external ears normal General nose exam: Normal external nose present Mouth: Normal oral and palatal mucosa present and oropharynx normal Throat: Yes posterior oropharynx normal Eyes: Other: jaundiced General: appearance normal, both eyes and all related structures Neck: Other: supple, jvd Neck: Yes normal visual inspection and Yes JVD Chest: Chest palpation & inspection: normal inspection of the chest Resp: Effort & Inspection: decreased respiratory effort Auscultation: clear to auscultation bilaterally and diminished lung sounds Cardio: Other: chronically ill appearing Jugular venous distension: no JVD Palpation: abnormal PMI displaced PMI Rate: Other (irregular rate and rhythm) Rhythm: abnormal rhythm irregularly irregular Heart sounds: S1 normal heart sound present and S2 normal heart sound present GI: Other: edema to abdomen Inspection: Yes normal to inspection and Yes distended Palpation (GI): Soft to palpation, nontender and No hepatosplenomegaly present Auscultation: normal bowel sounds : General: Yes no CVA tenderness Back/Spine/Pelvis: Back: no CVA tenderness Skin: General skin exam: no rashes or lesions noted Neuro: General: oriented to person and patient oriented x3 Cranial nerves: Yes CN's II-XII intact bilaterally Motor exam (neuro): 5/5 motor strength present throughout Sensory Exam: No Sensory deficit (Neuro) Extrem: Other: chronic edema with skin changes to lower extremities, hard skin changes General: Yes edema Psych: Appearance: grossly normal Objective Data Labs CBC & Chem 7: 12/11/20 10:15 12/14/20 08:13 Labs: Laboratory Results - last 24 hr 12/14/20 12/14/20 12/14/20 08:13 08:13 09:18 PT 51.4 H D INR 4.3 H Sodium 133 L Potassium 2.9 L Chloride 88 L Carbon Dioxide 33 H Anion Gap 15 BUN 27 H Creatinine 1.39 Estim Creat Clear Calc 50.7 Estimated GFR 52 POC Glucose 56 L* Random Glucose 49 L* Calcium 8.5 12/14/20 12/14/20 12/14/20 09:50 11:30 16:21 PT INR Sodium Potassium Chloride Carbon Dioxide Anion Gap BUN Creatinine Estim Creat Clear Calc Estimated GFR POC Glucose 101 122 H 105 Random Glucose Calcium Microbiology Microbiology Results: Microbiology 12/11/20 16:30 Urine clean catch - Clean Catch Midstream Urine Culture - Final Enterococcus faecalis 12/11/20 10:16 Blood - Venous Blood Culture - Preliminary No growth after 48 hours. 12/11/20 10:15 Blood - Venous Blood Culture - Preliminary No growth after 48 hours. Assessment & Plan Assessment and plan (1) Hypothyroid: Status: Acute (2) Hypoglycemia: Status: Acute (3) Anasarca: Status: Acute (4) Right heart failure (secondary to left heart failure): Status: Acute (5) Acute on chronic right-sided congestive heart failure: Status: Acute (6) Hypothermia: Status: Acute (7) Severe mitral valve stenosis: Status: Acute (8) Persistent atrial fibrillation: Status: Acute Assessment and Plan: 60-year-old gentleman with past medical history significant for right-sided heart failure, pulmonary hypertension, severe mitral stenosis, recently discharged from [facility] 1 week ago, presented to [facility] due to generalized anasarca and significant fluid overload. The patient will be admitted to intermediate care unit for continued monitoring and treatment. Acute on chronic right-sided congestive heart failure with generalized anasarca, due to severe mitral stenosis , severe pulmonary hypertension, recurrent hospitalization related to to right heart failure Edema slowly improving continue IV Bumex drip and increase dose of metolazone to 2.5 mg daily cardiology following Monitor daily weight Is&Os and follow BMP closely. Metolazone as ordered PO KCl Time Spent With Patient Time: Total time spent is greater than 50% in coordination of care (as documented) at patient's floor/unit and/or counseling patient:
[2020-12-15 04:00] VITALS: BP 118/92; PULSE 86; RESP 18; TEMP 37; O2SAT 94
[2020-12-15] MEDS: Bumetanide 25 MG in Container,Empty 0 ML 6 MG IVCONT (04:02)
[2020-12-15] MEDS: Levothyroxine Sodium 75 MCG TABLET PO (06:23)
[2020-12-15 07:23] LABS: Anion Gap 18 (12-20); Blood Urea Nitrogen 25 mg/dL (9-16); Calcium 8.8 mg/dL (8.4-10.2); Carbon Dioxide 37 mmol/L (22-29); Chloride 85 mmol/L (96-108); Estimated Glomerular Filt Rate 59; Glucose Random 46 mg/dL (60-115); Potassium 3.1 mmol/l (3.3-5.1); Sodium 137 mmol/L (135-145)
[2020-12-15 07:31] LABS: Glucose, Whole Blood 55 mg/dL (60-115)
[2020-12-15 08:00] VITALS: BP 94/57; PULSE 97; RESP 20; TEMP 36.6; O2SAT 97
[2020-12-15 08:13] LABS: Glucose, Whole Blood 102 mg/dL (60-115)
[2020-12-15 08:17] LABS: INTERNATIONAL NORM RATIO 3.3 (0.9-1.1); Prothrombin Time 39.5 SEC (10.8-13.0)
[2020-12-15] MEDS: metOLazone 2.5 MG TABLET PO (11:01)
[2020-12-15] MEDS: Loratadine 10 MG TABLET PO (11:01)
[2020-12-15] MEDS: Magnesium Oxide 400 MG TABLET 800 MG PO (11:01)
[2020-12-15] MEDS: Potassium Chloride Packet 20 MEQ PACKET 40 MEQ PO (11:01)
[2020-12-15] MEDS: Digoxin 0.125 MG TABLET PO (11:01)
[2020-12-15] MEDS: Potassium Chloride ER 20 MEQ TAB.ER.PRT PO ×2 (11:01→20:58)
[2020-12-15] MEDS: Omeprazole 40 MG CAPSULE.DR PO (11:01)
[2020-12-15] MEDS: Clotrimazole 1 % Cream 15 GM TUBE 1 APPL TOPICAL ×2 (11:07→20:58)
[2020-12-15 11:46] LABS: Glucose, Whole Blood 133 mg/dL (60-115)
[2020-12-15 11:56] VITALS: BP 102/62; PULSE 93; RESP 20; TEMP 36.9; O2SAT 99
--- NOTE | 2020-12-15 12:20 | P.PNIM_ITS ---
Subjective Subjective Date of Service: 12/15/20 Interval History: Patient admitted with generalized edema, Patient remains confused Denies any complaint Review of Systems General no headache, no dizziness no fever chills. CVS no chest pain, no palpitation. Respiratory no cough, mild shortness of breath Gastrointestinal no nausea no vomiting, no abdominal pain Neurologic Neurologic: Denies Sensory deficit (Neuro) Physical Exam Vital Signs: Vital Signs: Last Vital Signs Temp 97.9 F 12/15/20 08:00 Pulse 97 12/15/20 08:00 Resp 20 12/15/20 08:00 BP 94/57 L 12/15/20 08:00 Pulse Ox 97 12/15/20 08:00 Body Mass Index 21.4 Const: Other: chronically ill appearing General: comfortable, no acute d istress, alert, awake, acute distress mild and respiratory and ill appearing; No healthy appearing Nutritional Appearance: average body habitus and cachectic Orientation/consciousness: oriented to person, oriented to place, oriented to time and patient oriented x3 Limitations: no limitations HENMT: Head: Yes normal to inspection Ears: external ears normal General nose exam: Normal external nose present Mouth: Normal oral and palatal mucosa present and oropharynx normal Throat: Yes posterior oropharynx normal Eyes: Other: jaundiced General: appearance normal, both eyes and all related structures Neck: Other: supple, jvd Neck: Yes normal visual inspection, Yes trachea midline, Yes supple and Yes JVD Chest: Chest palpation & inspection: normal inspection of the chest Resp: Effort & Inspection: normal respiratory effort and decreased respiratory effort Auscultation: clear to auscultation bilaterally and diminished lung sounds Cardio: Other: chronically ill appearing Jugular venous distension: no JVD Palpation: abnormal PMI displaced PMI Rate: regular rate and Other (irregular rate and rhythm) Rhythm: abnormal rhythm irregularly irregular Heart sounds: S1 normal heart sound present and S2 normal heart sound present GI: Other: edema to abdomen Inspection: Yes normal to inspection and Yes distended Palpation (GI): Soft to palpation, nontender and No hepatosplenomegaly present Auscultation: normal bowel sounds : General: Yes no CVA tenderness Back/Spine/Pelvis: Back: no CVA tenderness Skin: General skin exam: no rashes or lesions noted and ecchymosis Hair: normal Neuro: General: oriented to person, oriented to place, oriented to time and patient oriented x3 Cranial nerves: Yes CN's II-XII intact bilaterally Motor exam (neuro): 5/5 motor strength present throughout Sensory Exam: No Sensory deficit (Neuro) Extrem: Other: chronic edema with skin changes to lower extremities, hard skin changes General: Yes normal to inspection and Yes edema Psych: Appearance: grossly normal Objective Data Current Medications Generic Name Dose Route Start Last Admin Trade Name Freq PRN Reason Stop Dose Admin Acetaminophen 650 mg 12/11/20 16:54 12/13/20 17:48 Acetaminophen 325 Mg Tablet PO 650 mg Q6H PRN Administration PAIN Clotrimazole 1 appl 12/11/20 21:00 12/15/20 11:07 Clotrimazole 1 % Cream 15 Gm Tube TOPICAL 1 appl BID EUSEBIO Administration Digoxin 0.125 mg 12/12/20 09:00 12/15/20 11:01 Digoxin 0.125 Mg Tablet PO 0.125 mg DAILY EUSEBIO Administration Ceftriaxone Sodium 1 gm/ 50 mls @ 100 mls/hr 12/11/20 17:15 12/14/20 16:53 Sodium Chloride IV Infused Q24H EUSEBIO Infusion Bumetanide 25 mg/ IV 100 mls @ 6 mls/hr 12/12/20 11:00 12/15/20 04:02 Miscellaneous Supplies IVCONT 1.5 mg/hr .[id number] EUSEBIO 6 mls/hr Administration 1.5 MG/HR Levothyroxine Sodium 75 mcg 12/12/20 11:00 12/15/20 06:23 Levothyroxine Sodium 75 Mcg Tablet PO 75 mcg DAILY@0600 EUSEBIO Administration Loratadine 10 mg 12/12/20 09:00 12/15/20 11:01 Loratadine 10 Mg Tablet PO 10 mg DAILY EUSEBIO Administration Magnesium Oxide 800 mg 12/12/20 09:00 12/15/20 11:01 Magnesium Oxide 400 Mg Tablet PO 800 mg DAILY EUSEBIO Administration Metolazone 2.5 mg 12/13/20 09:00 12/15/20 11:01 Metolazone 2.5 Mg Tablet PO 2.5 mg DAILY EUSEBIO Administration Omeprazole 40 mg 12/12/20 09:00 12/15/20 11:01 Omeprazole 40 Mg Capsule.Dr PO 40 mg DAILY EUSEBIO Administration Ondansetron HCl 4 mg 12/11/20 16:54 Ondansetron Hcl 4 Mg/2 Ml Vial IVPUSH Q8H PRN Nausea Pharmacy Consult 1 each 12/11/20 15:16 Consult Rx Perform Med Rec MISCELLANE ONCE PRN Consult order Potassium Chloride 20 meq 12/11/20 21:00 12/15/20 11:01 Potassium Chloride Er 20 Meq Tab.Er.Prt PO 20 meq BID EUSEBIO Administration Warfarin Sodium 7.5 mg 12/12/20 18:00 12/14/20 17:24 Warfarin Sodium 7.5 Mg Tablet PO Not Given DAILY@1800 [facility] Labs CBC & Chem 7: 12/11/20 10:15 12/15/20 04:54 Microbiology Microbiology Results: Microbiology 12/11/20 16:30 Urine clean catch - Clean Catch Midstream Urine Culture - Final Enterococcus faecalis 12/11/20 10:16 Blood - Venous Blood Culture - Preliminary No growth after 48 hours. 12/11/20 10:15 Blood - Venous Blood Culture - Preliminary No growth after 48 hours. Assessment and Plan (1) Hypothyroid: Status: Acute (2) Hypoglycemia: Status: Acute (3) Anasarca: Status: Acute (4) Right heart failure (secondary to left heart failure): Status: Acute (5) Acute on chronic right-sided congestive heart failure: Status: Acute (6) Hypothermia: Status: Acute (7) Severe mitral valve stenosis: Status: Acute (8) Persistent atrial fibrillation: Status: Acute Assessment and Plan: 60-year-old gentleman with past medical history significant for right-sided hea rt failure, pulmonary hypertension, severe mitral stenosis, recently discharged from [facility] 1 week ago, presented to [facility] due to generalized anasarca and significant fluid overload. The patient will be admitted to intermediate care unit for continued monitoring and treatment. Acute on chronic right-sided congestive heart failure with generalized anasarca, due to severe mitral stenosis , severe pulmonary hypertension, recurrent hospitalization related to to right heart failure Edema slowly improving received IV Bumex drip will switch to IV Bumex continue metolazone to 2.5 mg daily cardiology following Monitor daily weight Is&Os and follow BMP closely. Abnormal urinalysis, likely urinary tract infection/penile pain, continue IV antibiotics blood cultures x2 negative urine culture growing Enterococcus will get ID consult for antibiotic consult urology. Acute kidney injury. Due to cardiorenal syndrome continue to diurese patient monitor renal function, being followed by Nephrology. Atrial fibrillation. Stable ventricular rate continue digoxin, lopressor on hold avoid hypotension Continue Coumadin 7.5 mg INR 1.9 today follow INR daily Hypothermia, likely related to hypothyroidism, poor cardiac output, hypoglycemia, now resolved. Newly diagnosed hypothyroidism. Patient was diagnosed with hypothyroidism during last admission TSH trending up will increase dose of levothyroxine to 75 mcg History of thrombocytopenia and anemia. Monitor H&H Code status is DNR DNI. Family is aware of poor prognosis. Spoke with shanita torres's brother Katy on phone #[phone]. Discussed code status with him. He wishes patient to be DNR DNI. If the patient does not respond to above treatment, then we will consider palliative care.
[2020-12-15 16:00] VITALS: BP 123/63; PULSE 91; RESP 20; TEMP 37.1; O2SAT 97
[2020-12-15] MEDS: cefTRIAXone sodium 1 GM in 0.9 % Sodium Chloride 50 ML IV (16:33)
[2020-12-15] MEDS: Bumetanide 1 MG TABLET 3 MG PO (16:34)
[2020-12-15] MEDS: Acetaminophen 325 MG TABLET 650 MG PO (16:34)
[2020-12-15 19:07] VITALS: BP 101/66; PULSE 61; RESP 18; TEMP 36.2; O2SAT 99
--- NOTE | 2020-12-15 22:00 | P.PNNP_ITS ---
Subjective Subjective Date of Service: 12/15/20 Principal diagnosis: Right heart failure, acute kidney injury Interval history: Patient admitted with generalized edema, Patient remains confused Denies any complaint Edema is better On PO bumex Physical Exam Vital Signs: Vital Signs: Last Vital Signs Temp 97.1 F 12/15/20 19:07 Pulse 61 12/15/20 19:07 Resp 18 12/15/20 19:07 BP 101/66 12/15/20 19:07 Pulse Ox 99 12/15/20 19:07 Body Mass Index 21.4 Const: Other: chronically ill appearing General: alert, awake, acute distress moderate and respiratory and ill appearing Nutritional Appearance: cachectic Orientation/consciousness: oriented to person and patient oriented x3 Limitations: no limitations HENMT: Head: Yes normal to inspection Ears: external ears normal General nose exam: Normal external nose present Mouth: Normal oral and palatal mucosa present and oropharynx normal Throat: Yes posterior oropharynx normal Eyes: Other: jaundiced General: appearance normal, both eyes and all related structures Neck: Other: supple, jvd Neck: Yes normal visual inspection and Yes JVD Chest: Chest palpation & inspection: normal inspection of the chest Resp: Effort & Inspection: decreased respiratory effort Auscultation: clear to auscultation bilaterally and diminished lung sounds Cardio: Other: chronically ill appearing Jugular venous distension: no JVD Palpation: abnormal PMI displaced PMI Rate: Other (irregular rate and rhythm) Rhythm: abnormal rhythm irregularly irregular Heart sounds: S1 normal h eart sound present and S2 normal heart sound present GI: Other: edema to abdomen Inspection: Yes normal to inspection and Yes distended Palpation (GI): Soft to palpation, nontender and No hepatosplenomegaly present Auscultation: normal bowel sounds : General: Yes no CVA tenderness Back/Spine/Pelvis: Back: no CVA tenderness Skin: General skin exam: no rashes or lesions noted Neuro: General: oriented to person and patient oriented x3 Cranial nerves: Yes CN's II-XII intact bilaterally Motor exam (neuro): 5/5 motor strength present throughout Sensory Exam: No Sensory deficit (Neuro) Extrem: Other: chronic edema with skin changes to lower extremities, hard skin changes General: Yes edema Psych: Appearance: grossly normal Objective Data Labs CBC & Chem 7: 12/11/20 10:15 12/15/20 04:54 Labs: Laboratory Results - last 24 hr 12/15/20 12/15/20 12/15/20 04:54 07:25 07:36 PT 39.5 H D INR 3.3 H Sodium 137 Potassium 3.1 L Chloride 85 L Carbon Dioxide 37 H Anion Gap 18 BUN 25 H Creatinine 1.26 Estim Creat Clear Calc 56.0 Estimated GFR 59 POC Glucose 55 L* Random Glucose 46 L* Calcium 8.8 12/15/20 12/15/20 08:10 11:29 PT INR Sodium Potassium Chloride Carbon Dioxide Anion Gap BUN Creatinine Estim Creat Clear Calc Estimated GFR POC Glucose 102 133 H Random Glucose Calcium Microbiology Microbiology Results: Microbiology 12/11/20 16:30 Urine clean catch - Clean Catch Midstream Urine Culture - Final Enterococcus faecalis 12/11/20 10:16 Blood - Venous Blood Culture - Preliminary No growth after 48 hours. 12/11/20 10:15 Blood - Venous Blood Culture - Preliminary No growth after 48 hours. Assessment & Plan Assessment and plan (1) Hypothyroid: Status: Acute (2) Hypoglycemia: Status: Acute (3) Anasarca: Status: Acute (4) Right heart failure (secondary to left heart failure): Status: Acute (5) Acute on chronic right-sided congestive heart failure: Status: Acute (6) Hypothermia: Status: Acute (7) Severe mitral valve stenosis: Status: Acute (8) Persistent atrial fibrillation: Status: Acute Assessment and Plan: 60-year-old gentleman with past medical history significant for right-sided heart failure, pulmonary hypertension, severe mitral stenosis, recently discharged from [facility] 1 week ago, presented to [facility] due to generalized anasarca and significant fluid overload. The patient will be admitted to intermediate care unit for continued monitoring and treatment. 1. RUDY in the setting of CHF 2. Mild CKD at baseline 3. Acute on chronic right-sided congestive heart failure with generalized anasarca, due to severe mitral stenosis , severe pulmonary hypertension, recurrent hospitalization related to to right heart failure Edema slowly improving Off IV Bumex drip PO Bumex as ordered- 3 mg BID metolazone to 2.5 mg daily cardiology following Monitor daily weight Is&Os and follow BMP closely. Mag Po PO KCl Code status is DNR DNI. Family is aware of poor prognosis. Time Spent With Patient Time: Total time spent is greater than 50% in coordination of care (as documented) at patient's floor/unit and/or counseling patient:
[2020-12-16] VITALS (8 sets, daily range): BP systolic 93–120; BP diastolic 53–69; PULSE 76–118; RESP 16–20; TEMP 36.3–37; O2SAT 96–100; BMI 17.4
[2020-12-16 05:35] LABS: Anion Gap 18 (12-20); Blood Urea Nitrogen 25 mg/dL (9-16); Carbon Dioxide 38 mmol/L (22-29); Chloride 85 mmol/L (96-108); Creatinine Clr Calc Pharmacy 55.1; Estimated Glomerular Filt Rate 58; Glucose Random 111 mg/dL (60-115); Sodium 138 mmol/L (135-145)
[2020-12-16] MEDS: Levothyroxine Sodium 75 MCG TABLET PO (06:30)
[2020-12-16 07:41] LABS: INTERNATIONAL NORM RATIO 2.9 (0.9-1.1); Prothrombin Time 34.3 SEC (10.8-13.0)
[2020-12-16] MEDS: Bumetanide 1 MG TABLET 3 MG PO ×2 (08:48→17:10)
[2020-12-16] MEDS: Potassium Chloride Packet 20 MEQ PACKET 40 MEQ PO (08:48)
[2020-12-16] MEDS: Magnesium Oxide 400 MG TABLET 800 MG PO (08:49)
[2020-12-16] MEDS: Potassium Chloride ER 20 MEQ TAB.ER.PRT PO ×2 (08:49→21:22)
[2020-12-16] MEDS: Digoxin 0.125 MG TABLET PO (08:49)
[2020-12-16] MEDS: Loratadine 10 MG TABLET PO (08:49)
[2020-12-16] MEDS: metOLazone 2.5 MG TABLET PO (08:49)
[2020-12-16] MEDS: Omeprazole 40 MG CAPSULE.DR PO (08:49)
[2020-12-16] MEDS: Clotrimazole 1 % Cream 15 GM TUBE 1 APPL TOPICAL ×2 (08:57→21:22)
--- NOTE | 2020-12-16 11:23 | PM.PNNEP ---
Subjective Subjective Date of Service: 12/16/20 Principal diagnosis: Right heart failure, acute kidney injury Interval history: Patient admitted with generalized edema,t Edema is better On PO bumex Physical Exam Vital Signs: Vital Signs: Last Vital Signs Temp 97.8 F 12/16/20 07:41 Pulse 97 12/16/20 08:49 Resp 20 12/16/20 07:41 BP 93/55 L 12/16/20 07:41 Pulse Ox 98 12/16/20 07:41 Body Mass Index 17.4 Const: General: no acute distress Objective Data Labs CBC & Chem 7: 12/11/20 10:15 12/16/20 04:21 Labs: Laboratory Results - last 24 hr 12/15/20 12/16/20 12/16/20 11:29 04:21 07:15 PT 34.3 H INR 2.9 H Sodium 138 Potassium 3.0 L Chloride 85 L Carbon Dioxide 38 H Anion Gap 18 BUN 25 H Creatinine 1.28 Estim Creat Clear Calc 55.1 Estimated GFR 58 POC Glucose 133 H Random Glucose 111 D Calcium 9.0 Microbiology Microbiology Results: Microbiology 12/11/20 16:30 Urine clean catch - Clean Catch Midstream Urine Culture - Final Enterococcus faecalis 12/11/20 10:16 Blood - Venous Blood Culture - Preliminary No growth after 48 hours. 12/11/20 10:15 Blood - Venous Blood Culture - Preliminary No growth after 48 hours. Assessment & Plan Assessment and plan (1) RUDY (acute kidney injury): Problem details: URDY consistent with type 1 cardio renal syndrome resolved known right heart failure with RV failure patient with severe mitral stenosis Hyponatremia improved/stable; C/W diuresis/supportive care Shall arrange follow up when D/Maicol Status: Acute Time Spent With Patient Time: Total time spent is greater than 50% in coordination of care (as documented) at patient's floor/unit and/or counseling patient:
[2020-12-16] MEDS: Acetaminophen 325 MG TABLET 650 MG PO (12:22)
--- NOTE | 2020-12-16 12:57 | P.PNIM_ITS ---
Subjective Subjective Date of Service: 12/16/20 Interval History: Patient admitted with generalized edema Patient remains confused Denies any complaint Review of Systems General no headache, no dizziness no fever chills. CVS no chest pain, no palpitation. Respiratory no cough, mild shortness of breath Gastrointestinal no nausea no vomiting, no abdominal pain Neurologic Neurologic: Denies Sensory deficit (Neuro) Physical Exam Vital Signs: Vital Signs: Last Vital Signs Temp 97.3 F 12/16/20 11:37 Pulse 118 H 12/16/20 11:37 Resp 16 12/16/20 11:37 BP 98/63 12/16/20 11:37 Pulse Ox 98 12/16/20 11:37 Body Mass Index 17.4 Const: Other: chronically ill appearing General: comfortable, no acute di stress, alert, awake, acute distress mild and respiratory and ill appearing; No healthy appearing Nutritional Appearance: average body habitus and cachectic Orientation/consciousness: oriented to person, oriented to place, oriented to time and patient oriented x3 Limitations: no limitations HENMT: Head: Yes normal to inspection Ears: external ears normal General nose exam: Normal external nose present Mouth: Normal oral and palatal mucosa present and oropharynx normal Throat: Yes posterior oropharynx normal Eyes: Other: jaundiced General: appearance normal, both eyes and all related structures Neck: Other: supple, jvd Neck: Yes normal visual inspection, Yes trachea midline, Yes supple and Yes JVD Chest: Chest palpation & inspection: normal inspection of the chest Resp: Effort & Inspection: normal respiratory effort and decreased respiratory effort Auscultation: clear to auscultation bilaterally and diminished lung sounds Cardio: Other: chronically ill appearing Jugular venous distension: no JVD Palpation: abnormal PMI displaced PMI Rate: regular rate and Other (irregular rate and rhythm) Rhythm: abnormal rhythm irregularly irregular Heart sounds: S1 normal heart sound present and S2 normal heart sound present GI: Other: edema to abdomen Inspection: Yes normal to inspection and Yes distended Palpation (GI): Soft to palpation, nontender and No hepatosplenomegaly present Auscultation: normal bowel sounds : General: Yes no CVA tenderness Back/Spine/Pelvis: Back: no CVA tenderness Skin: General skin exam: no rashes or lesions noted and ecchymosis Hair: normal Neuro: General: oriented to person, oriented to place, oriented to time and patient oriented x3 Cranial nerves: Yes CN's II-XII intact bilaterally Motor exam (neuro): 5/5 motor strength present throughout Sensory Exam: No Sensory deficit (Neuro) Extrem: Other: chronic edema with skin changes to lower extremities, hard skin changes General: Yes normal to inspection and Yes edema Psych: Appearance: grossly normal Objective Data Current Medications Generic Name Dose Route Start Last Admin Trade Name Freq PRN Reason Stop Dose Admin Acetaminophen 650 mg 12/11/20 16:54 12/16/20 12:22 Acetaminophen 325 Mg Tablet PO 650 mg Q6H PRN Administration PAIN Bumetanide 3 mg 12/15/20 17:00 12/16/20 08:48 Bumetanide 1 Mg Tablet PO 3 mg BID@0800,1700 EUSEBIO Administration Protocol Clotrimazole 1 appl 12/11/20 21:00 12/16/20 08:57 Clotrimazole 1 % Cream 15 Gm Tube TOPICAL 1 appl BID EUSEBIO Administration Digoxin 0.125 mg 12/12/20 09:00 12/16/20 08:49 Digoxin 0.125 Mg Tablet PO 0.125 mg DAILY EUSEBIO Administration Ceftriaxone Sodium 1 gm/ 50 mls @ 100 mls/hr 12/11/20 17:15 12/15/20 17:25 Sodium Chloride IV Infused Q24H EUSEBIO Infusion Levothyroxine Sodium 75 mcg 12/12/20 11:00 12/16/20 06:30 Levothyroxine Sodium 75 Mcg Tablet PO 75 mcg DAILY@0600 EUSEBIO Administration Loratadine 10 mg 12/12/20 09:00 12/16/20 08:49 Loratadine 10 Mg Tablet PO 10 mg DAILY EUSEBIO Administration Magnesium Oxide 800 mg 12/12/20 09:00 12/16/20 08:49 Magnesium Oxide 400 Mg Tablet PO 800 mg DAILY EUSEBIO Administration Metolazone 2.5 mg 12/13/20 09:00 12/16/20 08:49 Metolazone 2.5 Mg Tablet PO 2.5 mg DAILY EUSEBIO Administration Omeprazole 40 mg 12/12/20 09:00 12/16/20 08:49 Omeprazole 40 Mg Capsule. PO 40 mg DAILY EUSEBIO Administration Ondansetron HCl 4 mg 12/11/20 16:54 Ondansetron Hcl 4 Mg/2 Ml Vial IVPUSH Q8H PRN Nausea Pharmacy Consult 1 each 12/11/20 15:16 Consult Rx Perform Med Rec MISCELLANE ONCE PRN Consult order Potassium Chloride 20 meq 12/11/20 21:00 12/16/20 08:49 Potassium Chloride Er 20 Meq Tab.Er.Prt PO 20 meq BID EUSEBIO Administration Warfarin Sodium 7.5 mg 12/12/20 18:00 12/14/20 17:24 Warfarin Sodium 7.5 Mg Tablet PO Not Given DAILY@1800 [facility] Labs CBC & Chem 7: 12/11/20 10:15 12/16/20 04:21 Microbiology Microbiology Results: Microbiology 12/11/20 10:16 Blood - Venous Blood Culture - Final No growth after 5 days. 12/11/20 10:15 Blood - Venous Blood Culture - Final No growth after 5 days. 12/11/20 16:30 Urine clean catch - Clean Catch Midstream Urine Culture - Final Enterococcus faecalis Assessment and Plan (1) Hypothyroid: Status: Acute (2) Hypoglycemia: Status: Acute (3) Anasarca: Status: Acute (4) Right heart failure (secondary to left heart failure): Status: Acute (5) Acute on chronic right-sided congestive heart failure: Status: Acute (6) Hypothermia: Status: Acute (7) Severe mitral valve stenosis: Status: Acute (8) Persistent atrial fibrillation: Status: Acute Assessment and Plan: 60-year-old gentleman with past medical history significant for right-sided heart failure, pulmonary hypertension, severe mitral stenosis, recently discharged from [facility] 1 week ago, presented to [facility] due to generalized anasarca and significant fluid overload. The patient will be admitted to intermediate care unit for continued monitoring and treatment. Acute on chronic right-sided congestive heart failure with generalized anasarca, due to severe mitral stenosis , severe pulmonary hypertension, recurrent hospitalization related to to right heart failure Edema slowly improving Received IV Bumex drip will switch to IV Bumex continue metolazone to 2.5 mg daily cardiology following Monitor daily weight Is&Os and follow BMP closely. uti penile pain continue IV antibiotics blood cultures x2 negative urine culture growing Enterococcus will get ID consult for antibiotic consult urology. Acute kidney injury. Due to cardiorenal syndrome continue to diurese patient monitor renal function, being followed by Nephrology. Atrial fibrillation. Stable ventricular rate continue digoxin, lopressor on hold avoid hypotension Continue Coumadin 7.5 mg INR 1.9 today follow INR daily Hypothermia, likely related to hypothyroidism, poor cardiac output, hypoglycemia, now resolved. Newly diagnosed hypothyroidism. Patient was diagnosed with hypothyroidism during last admission TSH trending up will increase dose of levothyroxine to 75 mcg History of thrombocytopenia and anemia. Monitor H&H Code status is DNR DNI. Family is aware of poor prognosis. Spoke with patient's brother Katy on phone #[phone]. Discussed code status with him. He wishes patient to be DNR DNI.
--- NOTE | 2020-12-16 15:39 | P.CNID_ITS ---
History of Present Illness Data of Consult Service Date: 12/16/20 Requesting physician: Remy Crowder Primary Care Provider: Unknown Physician HPI Reason for consult: edema?infection He presents with weakness and swelling legs He has has no fever or chills now He has had symptoms for several days Review of Systems Review of Systems: Yes all other systems are reviewed and are negative Neurologic: Denies Sensory deficit (Neuro) [facility] Past Medical History Medical History Acute retention of urine Afib CHF (congestive heart failure) Hepatic encephalopathy Persistent atrial fibrillation Quit consuming alcohol in remote past Schizophrenia Severe mitral valve stenosis Traumatic brain injury Family History Family History Father No problems noted. Mother HTN (hypertension) Family history: reviewed and not pertinent Social History Social History Household Members: Family Housing: House Alcohol intake: never Smoking Status: Never smoker service: No Current occupational status: unemployed Meds Allergies Allergy/AdvReac Type Severity Reaction Status Date / Time Fish Containing Products Allergy Unknown UNKNOWN Verified 09/12/20 07:09 PEPPERS, JALAPENO Allergy Unknown UNKNOWN Uncoded 09/12/20 07:09 Home Medications Medication Instructions Recorded Confirmed Type digoxin [Digitek] 125 mcg PO DAILY 09/12/20 12/11/20 History omeprazole 40 mg PO DAILY 09/12/20 12/11/20 History risperidone 2 mg PO BID 09/12/20 12/11/20 History clotrimazole 1 appl TOPICAL BID 11/04/20 12/11/20 History warfarin 7.5 mg PO DAILY 11/20/20 12/11/20 History Physical Exam Vital Signs: Vital Signs: Last Vital Signs Temp 98.2 F 12/16/20 15:28 Pulse 76 12/16/20 15:28 Resp 20 12/16/20 15:28 BP 101/60 12/16/20 15:28 Pulse Ox 96 12/16/20 15:28 Body Mass Index 17.4 Const: General: cooperative HENMT: Head: Yes normal to inspection Mouth: Normal oral and palatal mucosa present Eyes: General: appearance normal, both eyes and all related structures Resp: Effort & Inspection: normal respiratory effort Cardio: Rate: regular rate Rhythm: regular rhythm GI: Palpation (GI): Soft to palpation and nontender : General: Yes no CVA tenderness Back/Spine/Pelvis: Back: no CVA tenderness Skin: General skin exam: no rashes or lesions noted Neuro: Sensory Exam: No Sensory deficit (Neuro) Extrem: General: Yes normal to inspection Assessment and Plan (1) Hydronephrosis: Problem details: There is no bacteremia at this time He has chronic leg swelling Status: Acute Await cultures No specific antibiotics at this time (2) Anasarca: Status: Resolved Results Labs CBC & Chem 7: 12/11/20 10:15 12/18/20 05:38 Labs: BMP 12/16/20 04:21 Sodium 138 Potassium 3.0 L Chloride 85 L Carbon Dioxide 38 H BUN 25 H Creatinine 1.28 Calcium 9.0 Microbiology Microbiology Results: Microbiology 12/11/20 10:16 Blood - Venous Blood Culture - Final No growth after 5 days. 12/11/20 10:15 Blood - Venous Blood Culture - Final No growth after 5 days. 12/11/20 16:30 Urine clean catch - Clean Catch Midstream Urine Culture - Final Enterococcus faecalis
[2020-12-16] MEDS: Amoxicillin 500 MG CAPSULE PO ×2 (17:10→23:34)
[2020-12-16] MEDS: Warfarin Sodium 7.5 MG TABLET PO (18:38)
[2020-12-17] VITALS (7 sets, daily range): BP systolic 96–111; BP diastolic 51–63; PULSE 70–84; RESP 16–20; TEMP 36.2–36.9; O2SAT 93–99
[2020-12-17] MEDS: Levothyroxine Sodium 75 MCG TABLET PO (06:08)
[2020-12-17 07:10] LABS: Anion Gap 16 (12-20); Blood Urea Nitrogen 24 mg/dL (9-16); Calcium 8.6 mg/dL (8.4-10.2); Carbon Dioxide 40 mmol/L (22-29); Chloride 82 mmol/L (96-108); Creatinine Clr Calc Pharmacy 51.7; Estimated Glomerular Filt Rate > 60; Glucose Random 64 mg/dL (60-115); Sodium 135 mmol/L (135-145)
[2020-12-17 07:34] LABS: INTERNATIONAL NORM RATIO 3.1 (0.9-1.1); Prothrombin Time 37.1 SEC (10.8-13.0)
[2020-12-17] MEDS: Potassium Chloride ER 20 MEQ TAB.ER.PRT PO ×2 (08:07→21:31)
[2020-12-17] MEDS: Magnesium Oxide 400 MG TABLET 800 MG PO (08:07)
[2020-12-17] MEDS: Digoxin 0.125 MG TABLET PO (08:08)
[2020-12-17] MEDS: Omeprazole 40 MG CAPSULE.DR PO (08:08)
[2020-12-17] MEDS: Amoxicillin 500 MG CAPSULE PO ×3 (08:08→23:20)
[2020-12-17] MEDS: Loratadine 10 MG TABLET PO (08:08)
[2020-12-17] MEDS: Clotrimazole 1 % Cream 15 GM TUBE 1 APPL TOPICAL ×2 (08:22→21:32)
[2020-12-17] MEDS: Potassium Chloride ER 20 MEQ TAB.ER.PRT 40 MEQ PO (08:26)
--- NOTE | 2020-12-17 13:03 | P.PNIM_ITS ---
Subjective Subjective Date of Service: 12/17/20 Interval History: Patient admitted with generalized edema Patient remains confused Denies any complaint Review of Systems General no headache, no dizziness no fever chills. CVS no chest pain, no palpitation. Respiratory no cough, mild shortness of breath Gastrointestinal no nausea no vomiting, no abdominal pain Neurologic Neurologic: Denies Sensory deficit (Neuro) Physical Exam Vital Signs: Vital Signs: Last Vital Signs Temp 98.2 F 12/17/20 11:31 Pulse 84 12/17/20 11:31 Resp 20 12/17/20 11:31 BP 100/60 12/17/20 11:31 Pulse Ox 97 12/17/20 11:31 Body Mass Index 17.4 Const: Other: chronically ill appearing General: comfortable, no acute di stress, alert, awake, acute distress mild and respiratory and ill appearing; No healthy appearing Nutritional Appearance: average body habitus and cachectic Orientation/consciousness: oriented to person, oriented to place, oriented to time and patient oriented x3 Limitations: no limitations HENMT: Head: Yes normal to inspection Ears: external ears normal General nose exam: Normal external nose present Mouth: Normal oral and palatal mucosa present and oropharynx normal Throat: Yes posterior oropharynx normal Eyes: Other: jaundiced General: appearance normal, both eyes and all related structures Neck: Other: supple, jvd Neck: Yes normal visual inspection, Yes trachea midline, Yes supple and Yes JVD Chest: Chest palpation & inspection: normal inspection of the chest Resp: Effort & Inspection: normal respiratory effort and decreased respiratory effort Auscultation: clear to auscultation bilaterally and diminished lung sounds Cardio: Other: chronically ill appearing Jugular venous distension: no JVD Palpation: abnormal PMI displaced PMI Rate: regular rate and Other (irregular rate and rhythm) Rhythm: abnormal rhythm irregularly irregular Heart sounds: S1 normal heart sound present and S2 normal heart sound present GI: Other: edema to abdomen Inspection: Yes normal to inspection and Yes distended Palpation (GI): Soft to palpation, nontender and No hepatosplenomegaly present Auscultation: normal bowel sounds : General: Yes no CVA tenderness Back/Spine/Pelvis: Back: no CVA tenderness Skin: General skin exam: no rashes or lesions noted and ecchymosis Hair: normal Neuro: General: oriented to person, oriented to place, oriented to time and patient oriented x3 Cranial nerves: Yes CN's II-XII intact bilaterally Motor exam (neuro): 5/5 motor strength present throughout Sensory Exam: No Sensory deficit (Neuro) Extrem: Other: chronic edema with skin changes to lower extremities, hard skin changes General: Yes normal to inspection and Yes edema Psych: Appearance: grossly normal Objective Data Current Medications Generic Name Dose Route Start Last Admin Trade Name Freq PRN Reason Stop Dose Admin Acetaminophen 650 mg 12/11/20 16:54 12/16/20 12:22 Acetaminophen 325 Mg Tablet PO 650 mg Q6H PRN Administration PAIN Amoxicillin 500 mg 12/16/20 16:00 12/17/20 08:08 Amoxicillin 500 Mg Capsule PO 500 mg Q8H EUSEBIO Administration Clotrimazole 1 appl 12/11/20 21:00 12/17/20 08:22 Clotrimazole 1 % Cream 15 Gm Tube TOPICAL 1 appl BID EUSEBIO Administration Digoxin 0.125 mg 12/12/20 09:00 12/17/20 08:08 Digoxin 0.125 Mg Tablet PO 0.125 mg DAILY EUSEBIO Administration Levothyroxine Sodium 75 mcg 12/12/20 11:00 12/17/20 06:08 Levothyroxine Sodium 75 Mcg Tablet PO 75 mcg DAILY@0600 EUSEBIO Administration Loratadine 10 mg 12/12/20 09:00 12/17/20 08:08 Loratadine 10 Mg Tablet PO 10 mg DAILY EUSEBIO Administration Magnesium Oxide 800 mg 12/12/20 09:00 12/17/20 08:07 Magnesium Oxide 400 Mg Tablet PO 800 mg DAILY EUSEBIO Administration Metolazone 2.5 mg 12/13/20 09:00 12/17/20 08:17 Metolazone 2.5 Mg Tablet PO Not Given DAILY [facility] Omeprazole 40 mg 12/12/20 09:00 12/17/20 08:08 Omeprazole 40 Mg Capsule.Dr PO 40 mg DAILY EUSEBIO Administration Ondansetron HCl 4 mg 12/11/20 16:54 Ondansetron Hcl 4 Mg/2 Ml Vial IVPUSH Q8H PRN Nausea Pharmacy Consult 1 each 12/11/20 15:16 Consult Rx Perform Med Rec MISCELLANE ONCE PRN Consult order Potassium Chloride 20 meq 12/11/20 21:00 12/17/20 08:07 Potassium Chloride Er 20 Meq Tab.Er.Prt PO 20 meq BID EUSEBIO Administration Warfarin Sodium 7.5 mg 12/12/20 18:00 12/16/20 18:38 Warfarin Sodium 7.5 Mg Tablet PO 7.5 mg DAILY@1800 EUSEBIO Administration Labs CBC & Chem 7: 12/11/20 10:15 12/17/20 05:21 Microbiology Microbiology Results: Microbiology 12/11/20 10:16 Blood - Venous Blood Culture - Final No growth after 5 days. 12/11/20 10:15 Blood - Venous Blood Culture - Final No growth after 5 days. 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 The patient will be admitted to intermediate care unit for continued monitoring and treatment. Acute on chronic right-sided congestive heart failure with generalized anasarca, due to severe mitral stenosis , severe pulmonary hypertension, recurrent hospitalization related to to right heart failure Edema improving Received IV Bumex drip Bicarb trending up developed metabolic alkalosis likely over-diuresis Will hold Bumex and metolazone Monitor BMP cardiology following Monitor daily weight Is&Os and follow BMP closely. uti continue IV antibiotics blood cultures x2 negative urine culture growing Enterococcus Id consulted recommended awaiting cultures consult urology. Acute kidney injury. Due to cardiorenal syndrome continue to diurese patient monitor renal function, being followed by Nephrology. Atrial fibrillation. Stable ventricular rate continue digoxin, lopressor on hold avoid hypotension Continue Coumadin 7.5 mg INR 1.9 today follow INR daily Hypothermia, likely related to hypothyroidism, poor cardiac output, hypoglycemia, now resolved. Newly diagnosed hypothyroidism. Patient was diagnosed with hypothyroidism during last admission TSH trending up will increase dose of levothyroxine to 75 mcg History of thrombocytopenia and anemia. Monitor H&H Code status is DNR DNI. Family is aware of poor prognosis. Spoke with patient's brother Katy on phone #[phone]. Discussed code status with him. He wishes patient to be DNR DNI.
--- NOTE | 2020-12-17 18:03 | PC.NURSE ---
New order to remove wiley catheter from . wiley discontinued at 1700. patient due to void at 2300.
--- NOTE | 2020-12-17 18:17 | PM.PNNEP ---
Subjective Subjective Date of Service: 12/17/20 Principal diagnosis: Right heart failure, acute kidney injury Interval history: Events noted Physical Exam Vital Signs: Vital Signs: Last Vital Signs Temp 97.2 F 12/17/20 15:38 Pulse 74 12/17/20 15:38 Resp 20 12/17/20 15:38 BP 100/63 12/17/20 15:38 Pulse Ox 99 12/17/20 15:38 Body Mass Index 17.4 Const: General: no acute distress Objective Data Labs CBC & Chem 7: 12/11/20 10:15 12/17/20 05:21 Labs: Laboratory Results - last 24 hr 12/17/20 12/17/20 05:21 07:12 PT 37.1 H INR 3.1 H Sodium 135 Potassium 3.0 L Chloride 82 L Carbon Dioxide 40 H* Anion Gap 16 BUN 24 H Creatinine 1.11 Estim Creat Clear Calc 51.7 Estimated GFR > 60 Random Glucose 64 D Calcium 8.6 Microbiology Microbiology Results: Microbiology 12/11/20 10:16 Blood - Venous Blood Culture - Final No growth after 5 days. 12/11/20 10:15 Blood - Venous Blood Culture - Final No growth after 5 days. 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
[2020-12-18 03:34] VITALS: BP 101/66; PULSE 80; RESP 16; TEMP 36.3; O2SAT 97
[2020-12-18] MEDS: Levothyroxine Sodium 75 MCG TABLET PO (05:52)
[2020-12-18 07:43] LABS: Anion Gap 13 (12-20); Blood Urea Nitrogen 22 mg/dL (9-16); Calcium 8.4 mg/dL (8.4-10.2); Carbon Dioxide 40 mmol/L (22-29); Chloride 87 mmol/L (96-108); Creatinine Clr Calc Pharmacy 61.7; Estimated Glomerular Filt Rate > 60; Glucose Random 62 mg/dL (60-115); Potassium 3.5 mmol/l (3.3-5.1); Sodium 136 mmol/L (135-145)
[2020-12-18 08:00] VITALS: BP 101/61; PULSE 88; RESP 18; TEMP 36.4; O2SAT 98
[2020-12-18 09:05] LABS: INTERNATIONAL NORM RATIO 3.3 (0.9-1.1); Prothrombin Time 39.4 SEC (10.8-13.0)
[2020-12-18 09:20] VITALS: PULSE 88
[2020-12-18] MEDS: Omeprazole 40 MG CAPSULE.DR PO (09:20)
[2020-12-18] MEDS: Loratadine 10 MG TABLET PO (09:20)
[2020-12-18] MEDS: acetaZOLAMIDE 250 MG TABLET PO (09:20)
[2020-12-18] MEDS: Amoxicillin 500 MG CAPSULE PO ×2 (09:20→16:09)
[2020-12-18] MEDS: Potassium Chloride ER 20 MEQ TAB.ER.PRT PO (09:20)
[2020-12-18] MEDS: Magnesium Oxide 400 MG TABLET 800 MG PO (09:20)
[2020-12-18] MEDS: Digoxin 0.125 MG TABLET PO (09:20)
[2020-12-18] MEDS: Clotrimazole 1 % Cream 15 GM TUBE 1 APPL TOPICAL (09:21)
[2020-12-18 11:43] VITALS: BP 101/57; PULSE 98; RESP 18; TEMP 36.8; O2SAT 97
--- NOTE | 2020-12-18 12:10 | MHC.CM.PN ---
DC today. Male 60 dx EDEMA Hypothermia. Pt with HF in fluid overload has been diuresed. He is DC to home no home services or STR;because his insurance does not provide post hospital services. His Sister was notified of DC today. He will transport via ambulance.
[2020-12-18 12:46] VITALS: BP 101/57; PULSE 98; O2SAT 97
--- NOTE | 2020-12-18 13:49 | PM.DS ---
DS: Providers Provider Date of Service: 12/18/20 Date of admission: 12/11/20 16:54 Primary care physician: Unknown Physician Consults: 12/11/20 16:54 Consult to Cardiology Routine Consulting Provider: Kobe Melo Reason for consultation: Cardiorenal syndrome Has provider been notified: No Consult to Nephrology Routine Consulting Provider: Brett Cox Reason for consultation: rudy 12/12/20 10:48 Consult to Urology Routine Consulting Provider: Aniceto Norman Reason for consultation: rt hydronephrosis Has provider been notified: No 12/15/20 12:27 Consult to Infectious Diseases Routine Consulting Provider: Saranya Sales Reason for consultation: enterococcal UTI DS: Diagnosis Discharge Diagnosis (1) RUDY (acute kidney injury): Status: Acute Problem details: 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 patient with severe mitral stenosis Hyponatremia improved/stable; C/W diuresis/supportive care Bicarb is 40 - keep Diamox Shall arrange follow up when D/Maicol DS: Medications Discharge Medications Home Medications: Home Medications Medication Instructions Recorded Confirmed digoxin [Digitek] 125 mcg PO DAILY 09/12/20 12/11/20 omeprazole 40 mg PO DAILY 09/12/20 12/11/20 risperidone 2 mg PO BID 09/12/20 12/11/20 clotrimazole 1 appl TOPICAL BID 11/04/20 12/11/20 warfarin 7.5 mg PO DAILY 11/20/20 12/11/20 Previous Rx's Medication Instructions Recorded cetirizine 10 mg PO DAILY #30 tab 10/08/20 epinephrine [EpiPen 2-Sumeet] 0.3 mg IM Q10M PRN #2 ea 10/08/20 metoprolol succinate 12.5 mg PO DAILY #15 tab 10/08/20 bumetanide 3 mg PO BID@0800,1700 #60 tab 11/09/20 magnesium oxide 800 mg PO DAILY #30 tab 11/09/20 potassium chloride [Klor-Con M20] 20 meq PO BID #60 tab 11/09/20 metolazone 2.5 mg PO MoWeFr@0900 #30 tab 12/03/20 walker #1 ea 12/03/20 amoxicillin 500 mg PO Q8H #21 cap 12/18/20 levothyroxine 75 mcg PO DAILY@0600 #30 tab 12/18/20 DS: Summary Hospital Course Hospital Course: HPI 60-year-old gentleman who was recently discharged from [facility] on December 03, 2020, after being treated for cardiorenal syndrome. The patient required treatment with IV Bumex drip with good response. The patient during that hospitalization was also diagnosed to have hypothyroidism, was placed on Synthroid. The patient has generalized edema as well as hypothermia, hypoglycemia improved and the patient was subsequently discharged home. The patient returned to [facility] this morning due to worsening edema. According to the patient and his brother who is the healthcare proxy, the patient has been taking his medications as prescribed. In the emergency room, the patient was noticed to be hypoglycemic with a blood sugar of 41. He was hypothermic with a temp around 91. The patient's creatinine was slightly elevated at 1.59, sodium 132. TSH improved to 15.31 from level of 22.39 that went down to 11.36. The patient's INR is close to therapeutic range of 2 that seems the patient has been taking his medication. The patient in the emergency room was treated with a dose of Bumex, Coumadin, IV levothyroxine. Fransico Hugger was used. The patient's temperature gradually improved from a level of 91 to 96.6 at the present time. The patient is awake, alert, denies any shortness of breath, but complaining of generalized weakness and swelling of lower extremities and difficulty in urination due to scrotal swelling. The patient is now being admitted to [facility] due to generalized anasarca with worsening renal function. The patient's creatinine improved to normal at 0.94 upon discharge on December 03, now bumped up to 1.59. Hospital course 60-year-old male admitted with acute on chronic CHF exacerbation, patient was started on IV Bumex drip, and metolazone p.o., cardiology was consulted, patient was diuresed well, patient was in negative balance, patient developed mild metabolic alkalosis likely secondary to over-diuresis received Diamox, patient was stable cleared by Cardiology discharged home on p.o. Bumex 3 mg b.i.d. and metolazone Patient also had UTI started on IV antibiotic, blood cultures were negative, urine culture grew enterococcal faecalis, id recommended p.o. amoxicillin. Codey catheter was removed, patient was able to void Patient was stable evaluated by Physical therapy recommended home with 24 x 7 care, patient was discharged home, not able to sent with VNS given insurance issue Time Spent with Patient Time attestation: Total time spent providing and/or coordinating discharge services: Discharge coordination time: Greater than 30 minutes Physical Exam Vital Signs: Vital Signs: Last Vital Signs Temp 98.2 F 12/18/20 11:43 Pulse 98 12/18/20 12:46 Resp 18 12/18/20 11:43 BP 101/57 L 12/18/20 12:46 Pulse Ox 97 12/18/20 12:46 Body Mass Index 17.4 DS: Data Data Completed and Pending Completed studies during hospitalization [Text1]: Procedures Transfusion of Nonautologous Red Blood Cells into Peripheral Vein, Percutaneous Approach (11/19/20) Labs on day of discharge: Laboratory Tests 12/11/20 12/11/20 12/11/20 10:15 10:15 10:15 WBC 5.1 RBC 4.20 L Hgb 9.1 L Hct 27.1 L MCV 64.5 L MCH 21.7 L MCHC 33.6 RDW 24.3 H Plt Count 54 L D MPV Not Reportable Immature Gran % (Auto) 0.2 Neut % (Auto) 71.5 Lymph % (Auto) 9.8 L [place] % (Auto) 11.4 H Eos % (Auto) 6.3 H Baso % (Auto) 0.8 Lymph # (Auto) 0.5 L [place] # (Auto) 0.6 Eos # (Auto) 0.3 Baso # (Auto) 0.0 Abs Immat Gran (auto) 0.01 Absolute Neuts (auto) 3.7 Absolute Nucleated RBC 0.060 H Nucleated RBC % (auto) 1.2 H Smear Tech's Comments VERIFIED PT 23.5 H INR 2.0 H Sodium 132 L Potassium 3.4 D Chloride 93 L Carbon Dioxide 25 Anion Gap 17 BUN 30 H Creatinine 1.59 H Estim Creat Clear Calc 44.4 Estimated GFR 45 POC Glucose Random Glucose 41 L* Calcium 8.4 Troponin I High Sens TSH Free T4 Urine Color Urine Appearance Urine pH Ur Specific [place] Urine Protein Urine Glucose (UA) Urine Ketones Urine Blood Urine Nitrite Ur Leukocyte Esterase Urine RBC Urine WBC Urine WBC Clumps Ur Squamous Epith Cells Ur Renal Epithelial Cell Urine Bacteria Epithelial Casts Hyaline Casts Urine Mucus Digoxin COVID-19 ([facility]) COVID-19 [facility] 12/11/20 12/11/20 12/11/20 10:15 10:15 10:15 WBC RBC Hgb Hct MCV MCH MCHC RDW Plt Count MPV Immature Gran % (Auto) Neut % (Auto) Lymph % (Auto) [place] % (Auto) Eos % (Auto) Baso % (Auto) Lymph # (Auto) [place] # (Auto) Eos # (Auto) Baso # (Auto) Abs Immat Gran (auto) Absolute Neuts (auto) Absolute Nucleated RBC Nucleated RBC % (auto) Smear Tech's Comments PT INR Sodium Potassium Chloride Carbon Dioxide Anion Gap BUN Creatinine Estim Creat Clear Calc Estimated GFR POC Glucose Random Glucose Calcium Troponin I High Sens 14.9 TSH 15.31 H Free T4 1.05 Urine Color Urine Appearance Urine pH Ur Specific [place] Urine Protein Urine Glucose (UA) Urine Ketones Urine Blood Urine Nitrite Ur Leukocyte Esterase Urine RBC Urine WBC Urine WBC Clumps Ur Squamous Epith Cells Ur Renal Epithelial Cell Urine Bacteria Epithelial Casts Hyaline Casts Urine Mucus Digoxin 0.6 L COVID-19 ([facility]) COVID-[facility] 12/11/20 12/11/20 12/11/20 11:07 12:19 13:25 WBC RBC Hgb Hct MCV MCH MCHC RDW Plt Count MPV Immature Gran % (Auto) Neut % (Auto) Lymph % (Auto) [place] % (Auto) Eos % (Auto) Baso % (Auto) Lymph # (Auto) [place] # (Auto) Eos # (Auto) Baso # (Auto) Abs Immat Gran (auto) Absolute Neuts (auto) Absolute Nucleated RBC Nucleated RBC % (auto) Smear Tech's Comments PT INR Sodium Potassium Chloride Carbon Dioxide Anion Gap BUN Creatinine Estim Creat Clear Calc Estimated GFR POC Glucose 67 61 Random Glucose Calcium Troponin I High Sens TSH Free T4 Urine Color Urine Appearance Urine pH Ur Specific [place] Urine Protein Urine Glucose (UA) Urine Ketones Urine Blood Urine Nitrite Ur Leukocyte Esterase Urine RBC Urine WBC Urine WBC Clumps Ur Squamous Epith Cells Ur Renal Epithelial Cell Urine Bacteria Epithelial Casts Hyaline Casts Urine Mucus Digoxin COVID-19 ([facility]) Negative COVID-[facility] See Note 12/11/20 12/11/20 12/11/20 14:53 15:24 15:26 WBC RBC Hgb Hct MCV MCH MCHC RDW Plt Count MPV Immature Gran % (Auto) Neut % (Auto) Lymph % (Auto) [place] % (Auto) Eos % (Auto) Baso % (Auto) Lymph # (Auto) [place] # (Auto) Eos # (Auto) Baso # (Auto) Abs Immat Gran (auto) Absolute Neuts (auto) Absolute Nucleated RBC Nucleated RBC % (auto) Smear Tech's Comments PT INR Sodium Potassium Chloride Carbon Dioxide Anion Gap BUN Creatinine Estim Creat Clear Calc Estimated GFR POC Glucose 51 L* 43 L* Random Glucose Calcium Troponin I High Sens TSH Free T4 Urine Color YELLOW Urine Appearance HAZY Urine pH 6.0 Ur Specific [place] 1.020 Urine Protein NEG Urine Glucose (UA) NEG Urine Ketones NEG Urine Blood 2+ H Urine Nitrite NEG Ur Leukocyte Esterase NEG Urine RBC 10-14 H Urine WBC 5-9 H Urine WBC Clumps NOTED Ur Squamous Epith Cells NONE Ur Renal Epithelial Cell 2+ Urine Bacteria 2+ Epithelial Casts 0-2 Hyaline Casts 5-9 Urine Mucus 2+ Digoxin COVID-19 ([facility]) COVID-[facility] 12/11/20 12/11/20 12/11/20 16:22 18:17 21:11 WBC RBC Hgb Hct MCV MCH MCHC RDW Plt Count MPV Immature Gran % (Auto) Neut % (Auto) Lymph % (Auto) [place] % (Auto) Eos % (Auto) Baso % (Auto) Lymph # (Auto) [place] # (Auto) Eos # (Auto) Baso # (Auto) Abs Immat Gran (auto) Absolute Neuts (auto) Absolute Nucleated RBC Nucleated RBC % (auto) Smear Tech's Comments PT INR Sodium Potassium Chloride Carbon Dioxide Anion Gap BUN Creatinine Estim Creat Clear Calc Estimated GFR POC Glucose 137 H 88 121 H Random Glucose Calcium Troponin I High Sens TSH Free T4 Urine Color Urine Appearance Urine pH Ur Specific [place] Urine Protein Urine Glucose (UA) Urine Ketones Urine Blood Urine Nitrite Ur Leukocyte Esterase Urine RBC Urine WBC Urine WBC Clumps Ur Squamous Epith Cells Ur Renal Epithelial Cell Urine Bacteria Epithelial Casts Hyaline Casts Urine Mucus Digoxin COVID-19 ([facility]) COVID-19 [facility] 12/12/20 12/12/20 12/13/20 06:29 06:29 05:59 WBC RBC Hgb Hct MCV MCH MCHC RDW Plt Count MPV Immature Gran % (Auto) Neut % (Auto) Lymph % (Auto) [place] % (Auto) Eos % (Auto) Baso % (Auto) Lymph # (Auto) [place] # (Auto) Eos # (Auto) Baso # (Auto) Abs Immat Gran (auto) Absolute Neuts (auto) Absolute Nucleated RBC Nucleated RBC % (auto) Smear Tech's Comments PT 22.6 H 33.1 H D INR 1.9 H 2.8 H Sodium 131 L Potassium 4.0 Chloride 94 L Carbon Dioxide 23 Anion Gap 18 BUN 32 H Creatinine 1.73 H Estim Creat Clear Calc 40.8 Estimated GFR 41 POC Glucose Random Glucose 72 D Calcium 8.4 Troponin I High Sens TSH Free T4 Urine Color Urine Appearance Urine pH Ur Specific [place] Urine Protein Urine Glucose (UA) Urine Ketones Urine Blood Urine Nitrite Ur Leukocyte Esterase Urine RBC Urine WBC Urine WBC Clumps Ur Squamous Epith Cells Ur Renal Epithelial Cell Urine Bacteria Epithelial Casts Hyaline Casts Urine Mucus Digoxin COVID-19 ([facility]) COVID-19 [facility] 12/13/20 12/13/20 12/14/20 05:59 08:31 08:13 WBC RBC Hgb Hct MCV MCH MCHC RDW Plt Count MPV Immature Gran % (Auto) Neut % (Auto) Lymph % (Auto) [place] % (Auto) Eos % (Auto) Baso % (Auto) Lymph # (Auto) [place] # (Auto) Eos # (Auto) Baso # (Auto) Abs Immat Gran (auto) Absolute Neuts (auto) Absolute Nucleated RBC Nucleated RBC % (auto) Smear Tech's Comments PT INR Sodium 134 L 133 L Potassium 3.3 2.9 L Chloride 93 L 88 L Carbon Dioxide 27 33 H Anion Gap 17 15 BUN 31 H 27 H Creatinine 1.52 H 1.39 Estim Creat Clear Calc 46.4 50.7 Estimated GFR 47 52 POC Glucose 73 Random Glucose 45 L* 49 L* Calcium 8.5 8.5 Troponin I High Sens TSH Free T4 Urine Color Urine Appearance Urine pH Ur Specific [place] Urine Protein Urine Glucose (UA) Urine Ketones Urine Blood Urine Nitrite Ur Leukocyte Esterase Urine RBC Urine WBC Urine WBC Clumps Ur Squamous Epith Cells Ur Renal Epithelial Cell Urine Bacteria Epithelial Casts Hyaline Casts Urine Mucus Digoxin COVID-19 ([facility]) COVID-19 [facility] 01/16/21 01/16/21 01/16/21 08:13 09:18 09:50 WBC RBC Hgb Hct MCV MCH MCHC RDW Plt Count MPV Immature Gran % (Auto) Neut % (Auto) Lymph % (Auto) [place] % (Auto) Eos % (Auto) Baso % (Auto) Lymph # (Auto) [place] # (Auto) Eos # (Auto) Baso # (Auto) Abs Immat Gran (auto) Absolute Neuts (auto) Absolute Nucleated RBC Nucleated RBC % (auto) Smear Tech's Comments PT 51.4 H D INR 4.3 H Sodium Potassium Chloride Carbon Dioxide Anion Gap BUN Creatinine Estim Creat Clear Calc Estimated GFR POC Glucose 56 L* 101 Random Glucose Calcium Troponin I High Sens TSH Free T4 Urine Color Urine Appearance Urine pH Ur Specific [place] Urine Protein Urine Glucose (UA) Urine Ketones Urine Blood Urine Nitrite Ur Leukocyte Esterase Urine RBC Urine WBC Urine WBC Clumps Ur Squamous Epith Cells Ur Renal Epithelial Cell Urine Bacteria Epithelial Casts Hyaline Casts Urine Mucus Digoxin COVID-19 ([facility]) [facility] 12/14/20 12/14/20 12/15/20 11:30 16:21 04:54 WBC RBC Hgb Hct MCV MCH MCHC RDW Plt Count MPV Immature Gran % (Auto) Neut % (Auto) Lymph % (Auto) [place] % (Auto) Eos % (Auto) Baso % (Auto) Lymph # (Auto) [place] # (Auto) Eos # (Auto) Baso # (Auto) Abs Immat Gran (auto) Absolute Neuts (auto) Absolute Nucleated RBC Nucleated RBC % (auto) Smear Tech's Comments PT INR Sodium 137 Potassium 3.1 L Chloride 85 L Carbon Dioxide 37 H Anion Gap 18 BUN 25 H Creatinine 1.26 Estim Creat Clear Calc 56.0 Estimated GFR 59 POC Glucose 122 H 105 Random Glucose 46 L* Calcium 8.8 Troponin I High Sens TSH Free T4 Urine Color Urine Appearance Urine pH Ur Specific [place] Urine Protein Urine Glucose (UA) Urine Ketones Urine Blood Urine Nitrite Ur Leukocyte Esterase Urine RBC Urine WBC Urine WBC Clumps Ur Squamous Epith Cells Ur Renal Epithelial Cell Urine Bacteria Epithelial Casts Hyaline Casts Urine Mucus Digoxin COVID-19 ([facility]) COVID-19 [facility] 12/15/20 12/15/20 12/15/20 07:25 07:36 08:10 WBC RBC Hgb Hct MCV MCH MCHC RDW Plt Count MPV Immature Gran % (Auto) Neut % (Auto) Lymph % (Auto) [place] % (Auto) Eos % (Auto) Baso % (Auto) Lymph # (Auto) [place] # (Auto) Eos # (Auto) Baso # (Auto) Abs Immat Gran (auto) Absolute Neuts (auto) Absolute Nucleated RBC Nucleated RBC % (auto) Smear Tech's Comments PT 39.5 H D INR 3.3 H Sodium Potassium Chloride Carbon Dioxide Anion Gap BUN Creatinine Estim Creat Clear Calc Estimated GFR POC Glucose 55 L* 102 Random Glucose Calcium Troponin I High Sens TSH Free T4 Urine Color Urine Appearance Urine pH Ur Specific [place] Urine Protein Urine Glucose (UA) Urine Ketones Urine Blood Urine Nitrite Ur Leukocyte Esterase Urine RBC Urine WBC Urine WBC Clumps Ur Squamous Epith Cells Ur Renal Epithelial Cell Urine Bacteria Epithelial Casts Hyaline Casts Urine Mucus Digoxin COVID-19 ([facility]) COVID-19 [facility] 12/15/20 12/16/20 12/16/20 11:29 04:21 07:15 WBC RBC Hgb Hct MCV MCH MCHC RDW Plt Count MPV Immature Gran % (Auto) Neut % (Auto) Lymph % (Auto) [place] % (Auto) Eos % (Auto) Baso % (Auto) Lymph # (Auto) [place] # (Auto) Eos # (Auto) Baso # (Auto) Abs Immat Gran (auto) Absolute Neuts (auto) Absolute Nucleated RBC Nucleated RBC % (auto) Smear Tech's Comments PT 34.3 H INR 2.9 H Sodium 138 Potassium 3.0 L Chloride 85 L Carbon Dioxide 38 H Anion Gap 18 BUN 25 H Creatinine 1.28 Estim Creat Clear Calc 55.1 Estimated GFR 58 POC Glucose 133 H Random Glucose 111 D Calcium 9.0 Troponin I High Sens TSH Free T4 Urine Color Urine Appearance Urine pH Ur Specific [place] Urine Protein Urine Glucose (UA) Urine Ketones Urine Blood Urine Nitrite Ur Leukocyte Esterase Urine RBC Urine WBC Urine WBC Clumps Ur Squamous Epith Cells Ur Renal Epithelial Cell Urine Bacteria Epithelial Casts Hyaline Casts Urine Mucus Digoxin COVID-19 ([facility]) COVID-19 [facility] 12/17/20 12/17/20 12/18/20 05:21 07:12 05:38 WBC RBC Hgb Hct MCV MCH MCHC RDW Plt Count MPV Immature Gran % (Auto) Neut % (Auto) Lymph % (Auto) [place] % (Auto) Eos % (Auto) Baso % (Auto) Lymph # (Auto) [place] # (Auto) Eos # (Auto) Baso # (Auto) Abs Immat Gran (auto) Absolute Neuts (auto) Absolute Nucleated RBC Nucleated RBC % (auto) Smear Tech's Comments PT 37.1 H INR 3.1 H Sodium 135 136 Potassium 3.0 L 3.5 Chloride 82 L 87 L Carbon Dioxide 40 H* 40 H* Anion Gap 16 13 BUN 24 H 22 H Creatinine 1.11 0.93 Estim Creat Clear Calc 51.7 61.7 Estimated GFR > 60 > 60 POC Glucose Random Glucose 64 D 62 Calcium 8.6 8.4 Troponin I High Sens TSH Free T4 Urine Color Urine Appearance Urine pH Ur Specific [place] Urine Protein Urine Glucose (UA) Urine Ketones Urine Blood Urine Nitrite Ur Leukocyte Esterase Urine RBC Urine WBC Urine WBC Clumps Ur Squamous Epith Cells Ur Renal Epithelial Cell Urine Bacteria Epithelial Casts Hyaline Casts Urine Mucus Digoxin COVID-19 ([facility]) COVID-19 [facility] 12/18/20 08:13 WBC RBC Hgb Hct MCV MCH MCHC RDW Plt Count MPV Immature Gran % (Auto) Neut % (Auto) Lymph % (Auto) [place] % (Auto) Eos % (Auto) Baso % (Auto) Lymph # (Auto) [place] # (Auto) Eos # (Auto) Baso # (Auto) Abs Immat Gran (auto) Absolute Neuts (auto) Absolute Nucleated RBC Nucleated RBC % (auto) Smear Tech's Comments PT 39.4 H INR 3.3 H Sodium Potassium Chloride Carbon Dioxide Anion Gap BUN Creatinine Estim Creat Clear Calc Estimated GFR POC Glucose Random Glucose Calcium Troponin I High Sens TSH Free T4 Urine Color Urine Appearance Urine pH Ur Specific [place] Urine Protein Urine Glucose (UA) Urine Ketones Urine Blood Urine Nitrite Ur Leukocyte Esterase Urine RBC Urine WBC Urine WBC Clumps Ur Squamous Epith Cells Ur Renal Epithelial Cell Urine Bacteria Epithelial Casts Hyaline Casts Urine Mucus Digoxin COVID-19 ([facility]) COVID-19 [facility] Discharge Plan Discharge Anticipated Discharge Date/Time: 12/18/20 11:45 Patient Disposition: Home, Self-Care Referrals: Peggy Benites MD [Physician] - 1 Week (Please call and schedule a follow up appointment.) Discharge Medications: New amoxicillin 500 mg Capsule 500 mg PO Q8H Qty: 21 RF: 0 levothyroxine 75 mcg Tablet 75 mcg PO DAILY@0600 Qty: 30 RF: 0 (DME) kati [facility] [place] See Rx Instructions .ROUTE .MEDSUPPLY Qty: 1 RF: 0 Continued clotrimazole 1 % Cream 1 appl TOPICAL BID RF: 0 potassium chloride [Klor-Con M20] 20 mEq Tablet,Er Particles/Crystals 20 meq PO BID Qty: 60 RF: 0 magnesium oxide 400 mg (241.3 mg magnesium) Tablet 800 mg PO DAILY Qty: 30 RF: 0 bumetanide 1 mg Tablet 3 mg PO BID@0800,1700 Qty: 60 RF: 0 omeprazole 40 mg Capsule,Delayed Release(Dr/Ec) 40 mg PO DAILY RF: 0 risperidone 2 mg Tablet 2 mg PO BID RF: 0 digoxin [Digitek] 125 mcg (0.125 mg) Tablet 125 mcg PO DAILY RF: 0 metoprolol succinate 25 mg tablet extended release 24 hr 12.5 mg PO DAILY Qty: 15 RF: 1 cetirizine 10 mg tablet 10 mg PO DAILY Qty: 30 RF: 0 epinephrine [EpiPen 2-Sumeet] 0.3 mg/0.3 mL auto-injector 0.3 mg IM Q10M PRN (Reason: anaphylaxis) Qty: 2 RF: 0 warfarin 7.5 mg Tablet 7.5 mg PO DAILY RF: 0 metolazone 2.5 mg Tablet 2.5 mg PO MoWeFr@0900 Qty: 30 RF: 0 (DME) kati [facility] [place] See Rx Instructions .ROUTE .MEDSUPPLY Qty: 1 RF: 0 Discontinued levothyroxine 50 mcg Tablet 50 mcg PO DAILY@0600 Qty: 30 RF: 0 Discharge Orders: Discharge Order (Routine); Ordered 12/18/20 Ordered By: Remy Crowder Diet: low salt diet Activity on Discharge: As tolerated Stand Alone Forms: Patient Portal Discharge page Visit Report Forms: Patient Portal Discharge page Care Plan Goals: prevent chf exacerbation Health Concerns: chf Plan of Treatment: po bumex
--- NOTE | 2020-12-18 15:52 | PM.PNNEP ---
Subjective Subjective Date of Service: 12/20/20 Principal diagnosis: Right heart failure, acute kidney injury Interval history: Events noted Physical Exam Vital Signs: Vital Signs: Last Vital Signs Temp 98.2 F 12/18/20 11:43 Pulse 98 12/18/20 12:46 Resp 18 12/18/20 11:43 BP 101/57 L 12/18/20 12:46 Pulse Ox 97 12/18/20 12:46 Body Mass Index 17.4 Const: General: no acute distress Objective Data Labs CBC & Chem 7: 12/11/20 10:15 12/18/20 05:38 Labs: Laboratory Results - last 24 hr 12/18/20 12/18/20 05:38 08:13 PT 39.4 H INR 3.3 H Sodium 136 Potassium 3.5 Chloride 87 L Carbon Dioxide 40 H* Anion Gap 13 BUN 22 H Creatinine 0.93 Estim Creat Clear Calc 61.7 Estimated GFR > 60 Random Glucose 62 Calcium 8.4 Microbiology Microbiology Results: Microbiology 12/11/20 10:16 Blood - Venous Blood Culture - Final No growth after 5 days. 12/11/20 10:15 Blood - Venous Blood Culture - Final No growth after 5 days. 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
== END 2020-12-18 17:00 | disposition home or self-care (01) | DRG 194 ==
LOC: HO.ED 12:13 → HO.EDOVER 18:42 → HO.IMC 12-12 08:05
PROVIDERS: Admitting Provider Hospitalist; Emergency Provider Emergency Medicine; Visit Provider Internal Medicine
DX: I13.0 Hypertensive heart and chronic kidney disease with heart failure and stage 1 through stage 4 chronic kidney disease, or unspecified chronic kidney disease (principal); N17.9 Acute kidney failure, unspecified; E87.3 Alkalosis; I27.29 Other secondary pulmonary hypertension; I50.813 Acute on chronic right heart failure; N13.30 Unspecified hydronephrosis; I48.20 Chronic atrial fibrillation, unspecified; I05.0 Rheumatic mitral stenosis; N18.9 Chronic kidney disease, unspecified; B95.2 Enterococcus as the cause of diseases classified elsewhere; E03.9 Hypothyroidism, unspecified; R68.0 Hypothermia, not associated with low environmental temperature; Z20.822 Contact with and (suspected) exposure to COVID-19; Z79.01 Long term (current) use of anticoagulants; Z79.890 Hormone replacement therapy; Z79.899 Other long term (current) drug therapy; Z66 Do not resuscitate
CPT/HCPCS: 36415; 71045; 80048; 80162; 81001; 81003; 82947; 84439; 84443; 84484; 85025; 85610; 87040; 87086; 87088; 87186; 87635; 93005; 96374; 97162; 99232; 99285; J0696

== ENCOUNTER 2021-01-06 08:15 | Inpatient (IN) | payer MEDICAID, OTHER, SELFPAY ==
[2021-01-06] VITALS (14 sets, daily range): BP systolic 64–111; BP diastolic 28–72; PULSE 72–125; RESP 8–22; TEMP 30.2–36.5; O2SAT 97–100; BMI 18.4
--- NOTE | ~2021-01-06 | CT_ITS ---
EXAMINATION: HEAD AND CERVICAL SPINE CT WITHOUT CONTRAST CLINICAL INFORMATION: Fall. COMPARISON: Previous head CT, most recent October 2020. TECHNIQUE: Axial images through the head and cervical spine without contrast. Sagittal and coronal reconstructions on the technologist workstation were performed. Patient dose 617+236 mGy-cm. FINDINGS: HEAD CT: Exam is limited due to motion. There is no evidence of an extra-axial collection. There is no evidence of intra-axial or extra-axial hemorrhage. The ventricles and extra-axial CSF spaces are slightly prominent suggestive of mild generalized atrophy. There is nonspecific periventricular white matter disease. No mass, mass effect or infarct is seen. There is soft tissue swelling adjacent to the left parietal bone. No skull fracture is seen. There is increased sclerosis and soft tissue opacification of the right mastoid air cells. CERVICAL SPINE: There is head tilt to the left. There is curvature of the proximal cervical spine to the right and lower cervical spine to the left. Bone alignment is otherwise normal. No acute fracture or dislocation is seen. There are well corticated soft tissue ossifications posterior to the left of C1 and C2 lamina. 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 There is mild degenerative spondylosis at C5-C6. Disc spaces are normal. Prevertebral soft tissues are normal. CT/CT head/brain wo con IMPRESSION: HEAD CT: Limited exam due to motion artifact. Generalized atrophy and nonspecific periventricular white matter disease. Soft tissue swelling adjacent to the left parietal bone. CERVICAL SPINE: Curvature of the cervical spine. 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 Mild degenerative changes.
--- NOTE | ~2021-01-06 | CT_ITS ---
EXAMINATION: HEAD AND CERVICAL SPINE CT WITHOUT CONTRAST CLINICAL INFORMATION: Fall. COMPARISON: Previous head CT, most recent October 2020. TECHNIQUE: Axial images through the head and cervical spine without contrast. Sagittal and coronal reconstructions on the technologist workstation were performed. Patient dose 617+236 mGy-cm. FINDINGS: HEAD CT: Exam is limited due to motion. There is no evidence of an extra-axial collection. There is no evidence of intra-axial or extra-axial hemorrhage. The ventricles and extra-axial CSF spaces are slightly prominent suggestive of mild generalized atrophy. There is nonspecific periventricular white matter disease. No mass, mass effect or infarct is seen. There is soft tissue swelling adjacent to the left parietal bone. No skull fracture is seen. There is increased sclerosis and soft tissue opacification of the right mastoid air cells. CERVICAL SPINE: There is head tilt to the left. There is curvature of the proximal cervical spine to the right and lower cervical spine to the left. Bone alignment is otherwise normal. No acute fracture or dislocation is seen. There are well corticated soft tissue ossifications posterior to the left of C1 and C2 lamina. 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 There is mild degenerative spondylosis at C5-C6. Disc spaces are normal. Prevertebral soft tissues are normal. CT/CT cervical spine wo con IMPRESSION: HEAD CT: Limited exam due to motion artifact. Generalized atrophy and nonspecific periventricular white matter disease. Soft tissue swelling adjacent to the left parietal bone. CERVICAL SPINE: Curvature of the cervical spine. 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 Mild degenerative changes.
--- NOTE | ~2021-01-06 | CT_ITS ---
EXAMINATION: CT HEAD WITHOUT CONTRAST CLINICAL INFORMATION: Seizure COMPARISON: CT head 11/19/2020 TECHNIQUE: Contiguous axial imaging was performed from the skull base to vertex without intravenous administration of contrast. Coronal and sagittal reformatted images are performed at the CT scanner This CT examination was performed using dose optimization techniques as appropriate, variously including the following: *Automated exposure control *Adjustment of mA and/or kV according to patient size (this includes techniques or standardized protocols for targeted exams where dose is matched to indication/reason for exam; i.e. extremities or head) *Use of iterative reconstruction technique DLP: 697 mGy-cm FINDINGS: There is no evidence of acute intracranial hemorrhage or territorial infarction. No abnormal mass effect or midline shift is seen. Rosen to white matter differentiation is well preserved. No extra-axial fluid collections are identified. The ventricles are normal in size. There is no abnormal attenuation within the brain parenchyma. The osseous structures and soft tissues are normal. The mastoid air cells and visualized portions of the paranasal sinuses are well aerated. CT/CT head/brain wo con IMPRESSION: No acute intracranial pathology.
--- NOTE | ~2021-01-06 | CT_ITS ---
EXAMINATION: CT CHEST WITHOUT CONTRAST CLINICAL INFORMATION: Fall COMPARISON: Previous chest x-ray most recent 12/11/[address] October 2020 TECHNIQUE: Multidetector volumetric CT imaging of the chest was done. Axial MIP volume rendering provided. Sagittal and coronal reformatted images were obtained. This CT examination was performed using dose optimization techniques as appropriate, variously including the following: *Automated exposure control *Adjustment of mA and/or kV according to patient size (this includes techniques or standardized protocols for targeted exams where dose is matched to indication/reason for exam; i.e. extremities or head) *Use of iterative reconstruction technique DLP: 231 mGy-cm FINDINGS: IT ACCOUNT MANAGER: LUNGS: There are scattered areas of increased attenuation seen throughout the lungs. There is subsegmental atelectasis at the lung bases. MEDIASTINUM: The heart is very enlarged. There is a moderate pericardial effusion. This is similar to October 2020 exam. The pulmonary arteries are enlarged, main pulmonary artery measuring 3.2 cm. The thoracic aorta is normal in caliber. There are small mediastinal lymph nodes. PLEURA: There is a moderate right pleural effusion that is similar to previous exam. There is a small left pleural effusion that is new or increased compared to previous October 2020 exam. There is no pneumothorax. AXILLA: No chest wall mass is seen. There is a air seen in the right axilla likely related to intravenous air probably from IV. There is edema/anasarca.. UPPER ABDOMEN: There is a small amount of ascites. OSSEOUS STRUCTURES: There is a right anterior third rib fracture. This appears similar to previous exam. No acute fracture is seen. CT/CT chest wo con IMPRESSION: Very enlarged cardiac silhouette. Moderate-sized pericardial effusion similar to previous exam. Enlarged pulmonary arteries. Increased attenuation in the lungs are questionable for mild pulmonary edema or pneumonitis. Bilateral pleural effusions, right greater than left. No pneumothorax. Small amount of ascites similar to previous exam. Right anterior third rib fractures similar to previous exam. No acute fracture seen.
--- NOTE | 2021-01-06 08:26 | ECG_ITS ---
Test Reason : WEAKNESS Blood Pressure : / mmHG Vent. Rate : 070 BPM Atrial Rate : 070 BPM P-R Int : 000 ms QRS Dur : 126 ms QT Int : 506 ms P-R-T Axes : 000 097 024 degrees QTc Int : 546 ms Atrial fibrillation Rightward axis Non-specific intra-ventricular conduction block Abnormal ECG When compared with ECG of 11-DEC-2020 10:20, No significant change was found Referred By: Fela Viera Electronically Signed By:MELONY CAMPA
--- NOTE | 2021-01-06 08:30 | PC.NURSE ---
PT NON RESPONSIVE, HYPOTHERMIC. LOW BLOOD GLUCOSE DEXTROSE GIVEN LABS OBTAINED
--- NOTE | 2021-01-06 08:38 | ED_ITS ---
HPI - Altered Mental Status General Chief Complaint: Fall Stated Complaint: PAIN Time Seen by Provider: 01/06/21 08:24 Source: patient, EMS and old records reviewed Mode of arrival: EMS Limitations: altered mental status History of Present Illness HPI narrative: 60 yo male with weakness, right heart failure, non compliance, afib on digoxin and coumadin , severe mitral valve stenosis - reportedly fell and has been on the floor since 5am he is altered and hypotensive, review of records note that family has made him DNR/DNI and that his prognosis is guarded and he should be palliate, will call family as soon as possible MD complaint: altered mental status, confusion and other (fall ) Onset (ago): hour(s) (started at 5am) Timing confirmed by: family member Severity: severe Consistency of symptoms: getting Worse Context: history of similar presentation and other (CHF, noncompliance, afib on coumadin, UTI) Associated symptoms: other (patient is mumbling cannot understand) Related Data Home Medications Medication Instructions Recorded Confirmed digoxin [Digitek] 125 mcg PO DAILY 09/12/20 01/06/21 omeprazole 40 mg PO DAILY@0630 09/12/20 01/06/21 risperidone 2 mg PO BID 09/12/20 01/06/21 clotrimazole 1 appl TOPICAL BID 11/04/20 01/06/21 warfarin 7.5 mg PO DAILY 11/20/20 01/06/21 magnesium oxide 400 mg PO BID 01/06/21 01/06/21 potassium chloride [Klor-Con M20] 20 meq PO DAILY 01/06/21 01/06/21 Previous Rx's Medication Instructions Recorded cetirizine 10 mg PO DAILY #30 tab 10/08/20 epinephrine [EpiPen 2-Sumeet] 0.3 mg IM Q10M PRN #2 ea 10/08/20 metoprolol succinate 12.5 mg PO DAILY #15 tab 10/08/20 bumetanide 3 mg PO BID@0800,1700 #60 tab 11/09/20 metolazone 2.5 mg PO MoWeFr@0900 #30 tab 12/03/20 walker #1 ea 12/03/20 levothyroxine 75 mcg PO DAILY@0600 #30 tab 12/18/20 kati #1 ea 12/18/20 Allergies Allergy/AdvReac Type Severity Reaction Status Date / Time Fish Containing Products Allergy Unknown UNKNOWN Verified 09/12/20 07:09 PEPPERS, JALAPENO Allergy Unknown UNKNOWN Uncoded 09/12/20 07:09 Review of Systems Review of Systems: ROS unable to be obtained due to altered mental status [facility] Past Medical History Attestation statement: The following information was validated with the patient. Medical History Acute retention of urine Afib CHF (congestive heart failure) Hepatic encephalopathy Persistent atrial fibrillation Quit consuming alcohol in remote past Schizophrenia Severe mitral valve stenosis Traumatic brain injury Family History Family History Father No problems noted. Mother HTN (hypertension) Social History Social History Household Members: Family Housing: House Alcohol intake: never Smoking Status: Never smoker Advance Directives: No Advance Directives Information Provided: Yes service: No Current occupational status: unemployed Physical Exam Vital Signs: Vital Signs: Last Vital Signs Temp 90.5 F L 01/06/21 11:26 Pulse 72 01/06/21 11:26 Resp 8 L 01/06/21 11:26 BP 104/68 01/06/21 11:26 Pulse Ox 100 01/06/21 11:26 Body Mass Index 18.4 Appearance: Somnolent, confused, follows some commands, moderate distress Eyes: Pupils equal, round and reactive to light. scleral icterus ENT: Pharynx normal. Neck: Normal inspection. Neck supple. CVS: bradycardic heart rate and rhythm. Pulses decreased Respiratory: No respiratory distress. Breath sounds decreased but poor effort Abdomen: Soft and nontender. small ascites Skin: Skin cool to touch and dry. yellowish and pale, skin is dry and flaking Extremities: no anasarca, non pitting LE edema, mild sweling of scrotum no cellulitis Neuro: Confused moves all extremities, mumbling incoherent. Course Course Course Narrative: call to family [phone] brother who is at home and is sick - made aware that Summer BP is very low, no pressors at this time, okay to make NUTRITION SERVICES WORKER if he does not respond to initial treatments. on warming blanket, empiric cefepime, BS low given IV dextrose no change in mental status no source at time of infection, placed on D5NS - has had two amps of dextrose, he is still altered, conservative treatment only, CM states he cannot be placed from ED, given derangement plan to admit to hospital IVF 30 cc/ kg bolus held he is DNR/DNI and NUTRITION SERVICES WORKER if he does not respond to conservative management - he has sig CHF and will go into pulm edema he cannot mentally handle bipap - at this time due to impending worsening resp status if he received too much fluids and I have no way to treat his respiratory distress from volume overload I have held 30cc/kg bolus MDM - Altered Mental Status MDM Narrative Medical decision making narrative: 60 yo male with hx of R sided heart failure, afib, anasarca, UTI weakness here after fall at home unsure what caused fall labs, head CT for ICH, CT cspine, CT chest, he does not appear fluid overloaded he is hypotensive, will obtain labs, cultures, EKG, IV albumin, slow IVF, he is DNR/DNI and brother does not want him to go on pressors if conservative measures fail he wants him to be NUTRITION SERVICES WORKER. Lab Data Result diagrams: 01/06/21 08:56 01/06/21 08:55 Labs: Lab Results 01/06/21 01/06/21 01/06/21 Range/Units 08:55 08:55 08:55 WBC (4.8-10.8) X10*3/uL RBC (4.60-5.80) X10*6/uL Hgb (14.0-18.0) g/dl Hct (42-52) % MCV (80-98) fL MCH (27.0-33.0) pg MCHC (31.0-36.0) g/dl RDW (11.0-16.0) % Plt Count (160-400) X10*3/uL MPV Immature Gran % (Auto) (0.0-0.4) % Neut % (Auto) (45-73) % Lymph % (Auto) (20-40) % [place] % (Auto) (2-11) % Eos % (Auto) (0-4) % Baso % (Auto) (0-2) % Lymph # (Auto) (1.2-4.9) X10*3/uL [place] # (Auto) (0.1-1.2) X10*3/uL Eos # (Auto) (0.0-0.4) X10*3/uL Baso # (Auto) (0.0-0.2) X10*3/uL Abs Immat Gran (auto) (0.00-0.03) X10*3/uL Absolute Neuts (auto) (2.0-8.3) X10*3/uL Absolute Nucleated RBC (0.0-0.012) X10*3/uL Nucleated RBC % (auto) (0.0-0.2) /100WBC Smear Tech's Comments PT (10.8-13.0) SEC INR (0.9-1.1) APTT (24.1-38.0) SEC VBG pH (7.32-7.43) VBG pCO2 mmHg VBG pO2 mmHg VBG HCO3 mmol/L VBG O2 Saturation % VBG Base Excess mmol/L Sodium 132 L (135-145) mmol/L Potassium 4.5 (3.3-5.1) mmol/L Chloride 99 (96-108) mmol/L Carbon Dioxide 20 L (22-29) mmol/L Anion Gap 18 (12-20) BUN 51 H D (9-16) mg/dL Creatinine 1.58 H (0.5-1.4) mg/dL Estim Creat Clear Calc 39.6 Estimated GFR 45 POC Glucose (60-115) mg/dL Random Glucose 23 L* (60-115) mg/dL Lactic Acid 1.7 (0.5-2.0) mmol/L Calcium 8.9 (8.4-10.2) mg/dL Magnesium 2.3 (1.6-2.6) mg/dL Total Bilirubin 4.9 H (0.0-1.0) mg/dL Direct Bilirubin 3.4 H (0.0-0.5) mg/dL AST 77 H (5-37) U/L ALT 26 (0-40) U/L Alkaline Phosphatase 134 H (39-117) U/L Ammonia 32 (13-55) umol/L Total Creatine Kinase 269 H (38-174) U/L Troponin I High Sens (<3.5-35.0) ng/L B-Natriuretic Peptide (<100) pg/mL Total Protein 7.2 (6.5-8.0) g/dL Albumin 3.0 L (3.5-5.0) g/dL Lipase 69 (8-78) U/L TSH 22.92 H (0.32-4.0) uIU/mL Digoxin (0.8-2.0) ng/mL COVID-19 ([facility]) (Negative) COVID-19 Clin Com 01/06/21 01/06/21 01/06/21 Range/Units 08:55 08:55 08:56 WBC 5.0 (4.8-10.8) X10*3/uL RBC 4.09 L (4.60-5.80) X10*6/uL Hgb 8.9 L (14.0-18.0) g/dl Hct 26.4 L (42-52) % MCV 64.5 L (80-98) fL MCH 21.8 L (27.0-33.0) pg MCHC 33.7 (31.0-36.0) g/dl RDW 22.5 H (11.0-16.0) % Plt Count 53 L (160-400) X10*3/uL MPV Not Reportable Immature Gran % (Auto) 0.2 (0.0-0.4) % Neut % (Auto) 80.5 H (45-73) % Lymph % (Auto) 7.2 L (20-40) % [place] % (Auto) 8.5 (2-11) % Eos % (Auto) 3.2 (0-4) % Baso % (Auto) 0.4 (0-2) % Lymph # (Auto) 0.4 L (1.2-4.9) X10*3/uL [place] # (Auto) 0.4 (0.1-1.2) X10*3/uL Eos # (Auto) 0.2 (0.0-0.4) X10*3/uL Baso # (Auto) 0.0 (0.0-0.2) X10*3/uL Abs Immat Gran (auto) 0.01 (0.00-0.03) X10*3/uL Absolute Neuts (auto) 4.1 (2.0-8.3) X10*3/uL Absolute Nucleated RBC 0.130 H (0.0-0.012) X10*3/uL Nucleated RBC % (auto) 2.6 H (0.0-0.2) /100WBC Smear Tech's Comments VERIFIED PT (10.8-13.0) SEC INR (0.9-1.1) APTT (24.1-38.0) SEC VBG pH (7.32-7.43) VBG pCO2 mmHg VBG pO2 mmHg VBG HCO3 mmol/L VBG O2 Saturation % VBG Base Excess mmol/L Sodium (135-145) mmol/L Potassium (3.3-5.1) mmol/L Chloride (96-108) mmol/L Carbon Dioxide (22-29) mmol/L Anion Gap (12-20) BUN (9-16) mg/dL Creatinine (0.5-1.4) mg/dL Estim Creat Clear Calc Estimated GFR POC Glucose (60-115) mg/dL Random Glucose (60-115) mg/dL Lactic Acid (0.5-2.0) mmol/L Calcium (8.4-10.2) mg/dL Magnesium (1.6-2.6) mg/dL Total Bilirubin (0.0-1.0) mg/dL Direct Bilirubin (0.0-0.5) mg/dL AST (5-37) U/L ALT (0-40) U/L Alkaline Phosphatase (39-117) U/L Ammonia (13-55) umol/L Total Creatine Kinase (38-174) U/L Troponin I High Sens 22.9 D (<3.5-35.0) ng/L B-Natriuretic Peptide 2508 H (<100) pg/mL Total Protein (6.5-8.0) g/dL Albumin (3.5-5.0) g/dL Lipase (8-78) U/L TSH (0.32-4.0) uIU/mL Digoxin (0.8-2.0) ng/mL COVID-19 ([facility]) Negative (Negative) COVID-19 Clin Com See Note 01/06/21 01/06/21 01/06/21 Range/Units 08:56 09:44 09:44 WBC (4.8-10.8) X10*3/uL RBC (4.60-5.80) X10*6/uL Hgb (14.0-18.0) g/dl Hct (42-52) % MCV (80-98) fL MCH (27.0-33.0) pg MCHC (31.0-36.0) g/dl RDW (11.0-16.0) % Plt Count (160-400) X10*3/uL MPV Immature Gran % (Auto) (0.0-0.4) % Neut % (Auto) (45-73) % Lymph % (Auto) (20-40) % [place] % (Auto) (2-11) % Eos % (Auto) (0-4) % Baso % (Auto) (0-2) % Lymph # (Auto) (1.2-4.9) X10*3/uL [place] # (Auto) (0.1-1.2) X10*3/uL Eos # (Auto) (0.0-0.4) X10*3/uL Baso # (Auto) (0.0-0.2) X10*3/uL Abs Immat Gran (auto) (0.00-0.03) X10*3/uL Absolute Neuts (auto) (2.0-8.3) X10*3/uL Absolute Nucleated RBC (0.0-0.012) X10*3/uL Nucleated RBC % (auto) (0.0-0.2) /100WBC Smear Tech's Comments PT 38.0 H (10.8-13.0) SEC INR 3.2 H (0.9-1.1) APTT 49.8 H (24.1-38.0) SEC VBG pH 7.40 (7.32-7.43) VBG pCO2 28 mmHg VBG pO2 104 mmHg VBG HCO3 18 mmol/L VBG O2 Saturation 98.0 % VBG Base Excess -5.5 mmol/L Sodium (135-145) mmol/L Potassium (3.3-5.1) mmol/L Chloride (96-108) mmol/L Carbon Dioxide (22-29) mmol/L Anion Gap (12-20) BUN (9-16) mg/dL Creatinine (0.5-1.4) mg/dL Estim Creat Clear Calc Estimated GFR POC Glucose (60-115) mg/dL Random Glucose (60-115) mg/dL Lactic Acid (0.5-2.0) mmol/L Calcium (8.4-10.2) mg/dL Magnesium (1.6-2.6) mg/dL Total Bilirubin (0.0-1.0) mg/dL Direct Bilirubin (0.0-0.5) mg/dL AST (5-37) U/L ALT (0-40) U/L Alkaline Phosphatase (39-117) U/L Ammonia (13-55) umol/L Total Creatine Kinase (38-174) U/L Troponin I High Sens (<3.5-35.0) ng/L B-Natriuretic Peptide (<100) pg/mL Total Protein (6.5-8.0) g/dL Albumin (3.5-5.0) g/dL Lipase (8-78) U/L TSH (0.32-4.0) uIU/mL Digoxin < 0.3 L (0.8-2.0) ng/mL COVID-19 ([facility]) (Negative) COVID-19 Clin Com 01/06/21 01/06/21 01/06/21 Range/Units 10:01 11:09 12:40 WBC (4.8-10.8) X10*3/uL RBC (4.60-5.80) X10*6/uL Hgb (14.0-18.0) g/dl Hct (42-52) % MCV (80-98) fL MCH (27.0-33.0) pg MCHC (31.0-36.0) g/dl RDW (11.0-16.0) % Plt Count (160-400) X10*3/uL MPV Immature Gran % (Auto) (0.0-0.4) % Neut % (Auto) (45-73) % Lymph % (Auto) (20-40) % [place] % (Auto) (2-11) % Eos % (Auto) (0-4) % Baso % (Auto) (0-2) % Lymph # (Auto) (1.2-4.9) X10*3/uL [place] # (Auto) (0.1-1.2) X10*3/uL Eos # (Auto) (0.0-0.4) X10*3/uL Baso # (Auto) (0.0-0.2) X10*3/uL Abs Immat Gran (auto) (0.00-0.03) X10*3/uL Absolute Neuts (auto) (2.0-8.3) X10*3/uL Absolute Nucleated RBC (0.0-0.012) X10*3/uL Nucleated RBC % (auto) (0.0-0.2) /100WBC Smear Tech's Comments PT (10.8-13.0) SEC INR (0.9-1.1) APTT (24.1-38.0) SEC VBG pH (7.32-7.43) VBG pCO2 mmHg VBG pO2 mmHg VBG HCO3 mmol/L VBG O2 Saturation % VBG Base Excess mmol/L Sodium (135-145) mmol/L Potassium (3.3-5.1) mmol/L Chloride (96-108) mmol/L Carbon Dioxide (22-29) mmol/L Anion Gap (12-20) BUN (9-16) mg/dL Creatinine (0.5-1.4) mg/dL Estim Creat Clear Calc Estimated GFR POC Glucose 155 H 73 117 H (60-115) mg/dL Random Glucose (60-115) mg/dL Lactic Acid (0.5-2.0) mmol/L Calcium (8.4-10.2) mg/dL Magnesium (1.6-2.6) mg/dL Total Bilirubin (0.0-1.0) mg/dL Direct Bilirubin (0.0-0.5) mg/dL AST (5-37) U/L ALT (0-40) U/L Alkaline Phosphatase (39-117) U/L Ammonia (13-55) umol/L Total Creatine Kinase (38-174) U/L Troponin I High Sens (<3.5-35.0) ng/L B-Natriuretic Peptide (<100) pg/mL Total Protein (6.5-8.0) g/dL Albumin (3.5-5.0) g/dL Lipase (8-78) U/L TSH (0.32-4.0) uIU/mL Digoxin (0.8-2.0) ng/mL COVID-19 ([facility]) (Negative) COVID-19 Clin Com ECG Data ECG #1: Attestation: I personally reviewed and interpreted this ECG as follows: ECG interpretation date: 01/06/21 ECG interpretation time: 09:12 Interpretation: Rate: 70s Rhythm: afib [place]: right Normal P waves. Normal DINESH. widened QRS complex. ST T wave : nonspecific, no ERICK qTC: prolonged prior studies: no acute ischemia The study has been interpreted contemporaneously by me. . Critical Care Time Critical Care Time Critical Care Time: Yes Total Critical Care Time: 60 Attestation: IV dextrose x 2, warming blanket, review of records. I attest to this time spent taking care of the patient Discharge Plan Discharge Clinical Impression: Medical non-compliance, Acute alteration in mental status, Elevated liver function tests, Acute hypotension Hypothyroid Qualifiers: Hypothyroidism type: unspecified Qualified Code(s): E03.9 - Hypothyroidism, unspecified Hypothermia Qualifiers: Encounter type: initial encounter Qualified Code(s): T68.XXXA - Hypothermia, initial encounter Acute renal failure Qualifiers: Acute renal failure type: unspecified Qualified Code(s): N17.9 - Acute kidney failure, unspecified Prescriptions: No Action clotrimazole 1 % Cream 1 appl TOPICAL BID RF: 0 bumetanide 1 mg Tablet 3 mg PO BID@0800,1700 Qty: 60 RF: 0 potassium chloride [Klor-Con M20] 20 mEq tablet,ER particles/crystals 20 meq PO DAILY RF: 0 magnesium oxide 400 mg (241.3 mg magnesium) tablet 400 mg PO BID RF: 0 omeprazole 40 mg Capsule,Delayed Release(Dr/Ec) 40 mg PO DAILY@0630 RF: 0 risperidone 2 mg Tablet 2 mg PO BID RF: 0 digoxin [Digitek] 125 mcg (0.125 mg) Tablet 125 mcg PO DAILY RF: 0 metoprolol succinate 25 mg tablet extended release 24 hr 12.5 mg PO DAILY Qty: 15 RF: 1 cetirizine 10 mg tablet 10 mg PO DAILY Qty: 30 RF: 0 epinephrine [EpiPen 2-Sumeet] 0.3 mg/0.3 mL auto-injector 0.3 mg IM Q10M PRN (Reason: anaphylaxis) Qty: 2 RF: 0 warfarin 7.5 mg Tablet 7.5 mg PO DAILY RF: 0 metolazone 2.5 mg Tablet 2.5 mg PO MoWeFr@0900 Qty: 30 RF: 0 (DME) kati Peralta See Rx Instructions .ROUTE .MEDSUPPLY Qty: 1 RF: 0 levothyroxine 75 mcg Tablet 75 mcg PO DAILY@0600 Qty: 30 RF: 0 (KHLOE) kati Peralta See Rx Instructions .ROUTE .MEDSUPPLY Qty: 1 RF: 0
[2021-01-06] MEDS: cefEPime HCl 1 GM in 0.9 % Sodium Chloride 50 ML IV (09:05)
[2021-01-06] MEDS: 0.9 % Sodium Chloride 500 ML IV (09:05)
[2021-01-06 09:11] LABS: INTERNATIONAL NORM RATIO 3.2 (0.9-1.1)
[2021-01-06 09:13] LABS: Eosinophils Absolute Auto 0.2 X10*3/uL (0.0-0.4); Hemoglobin 8.9 g/dl (14.0-18.0); MANUAL DIFF FLAG SCAN; Partial Thromboplastin Time 49.8 SEC (24.1-38.0); SCAN SMEAR FLAG 1
[2021-01-06] MEDS: Albumin Human 25 % 100 ML IV (09:13)
[2021-01-06 09:14] LABS: Basophils Percent Auto 0.4 % (0-2); Eosinophils Percent Auto 3.2 % (0-4); Hematocrit 26.4 % (42-52); Imm Gran Abs Auto 0.01 X10*3/uL (0.00-0.03); Imm Gran Pct Auto 0.2 % (0.0-0.4); Lymphocytes Absolute Auto 0.4 X10*3/uL (1.2-4.9); Lymphocytes Percent Auto 7.2 % (20-40); Mean Corpuscular HGB Conc 33.7 g/dl (31.0-36.0); Mean Corpuscular Hemoglobin 21.8 pg (27.0-33.0); Monocytes Absolute Auto 0.4 X10*3/uL (0.1-1.2); Monocytes Percent Auto 8.5 % (2-11); Neutrophils Absolute Auto 4.1 X10*3/uL (2.0-8.3); Neutrophils Percent Auto 80.5 % (45-73); Red Blood Count 4.09 X10*6/uL (4.60-5.80); Red Cell Distribution Width 22.5 % (11.0-16.0)
[2021-01-06 09:16] LABS: Mean Corpuscular Volume 64.5 fL (80-98); NRBC Pct Auto 2.6 /100WBC (0.0-0.2); PLT ABN DIST 1; Platelet Count 53 X10*3/uL (160-400)
[2021-01-06 09:18] LABS: COVID-19 Test Negative (Negative)
[2021-01-06 09:25] LABS: Ammonia 32 umol/L (13-55)
[2021-01-06 09:29] LABS: Lactic Acid 1.7 mmol/L (0.5-2.0)
[2021-01-06 09:37] LABS: Alanine Aminotransferase 26 U/L (0-40); Alkaline Phosphatase 134 U/L (39-117); Anion Gap 18 (12-20); Aspartate Amino Transferase 77 U/L (5-37); Bilirubin Direct 3.4 mg/dL (0.0-0.5); Bilirubin Total 4.9 mg/dL (0.0-1.0); Blood Urea Nitrogen 51 mg/dL (9-16); Calcium 8.9 mg/dL (8.4-10.2); Carbon Dioxide 20 mmol/L (22-29); Chloride 99 mmol/L (96-108); Creatinine Clr Calc Pharmacy 39.6; Estimated Glomerular Filt Rate 45; Glucose Random 23 mg/dL (60-115); Lipase 69 U/L (8-78); Magnesium 2.3 mg/dL (1.6-2.6); Potassium 4.5 mmol/L (3.3-5.1); Sodium 132 mmol/L (135-145); Total Protein 7.2 g/dL (6.5-8.0)
[2021-01-06 09:38] LABS: B Type Natriuretic Peptide 2508 pg/mL (<100); Troponin-I High Sensitivity 22.9 ng/L (<3.5-35.0)
[2021-01-06] MEDS: Dextrose 50 % 25 GM/50 ML SYRINGE IVPUSH ×3 (09:38→20:30)
[2021-01-06 09:53] LABS: PCO2 VBG 28 mmHg
[2021-01-06 09:54] LABS: Base Excess VBG -5.5 mmol/L; HCO3 VBG 18 mmol/L; PO2 VBG 104 mmHg
[2021-01-06 09:57] LABS: Thyroid Stimulating Hormone 22.92 uIU/mL (0.32-4.0)
[2021-01-06 10:04] LABS: Glucose, Whole Blood 155 mg/dL (60-115)
[2021-01-06 10:35] LABS: Digoxin < 0.3 ng/mL (0.8-2.0)
[2021-01-06 10:37] LABS: SLIDE REVIEW VERIFIED
[2021-01-06 11:13] LABS: Glucose, Whole Blood 73 mg/dL (60-115)
[2021-01-06 12:55] LABS: Glucose, Whole Blood 117 mg/dL (60-115)
[2021-01-06] MEDS: Dextrose 5 % and 0.9 % NaCl 1,000 ML 42 ML IVCONT (12:58)
--- NOTE | 2021-01-06 15:06 | PC.NURSE ---
PT IS MORE ALERT ABLE TO ANSWER QUESTIONS
--- NOTE | 2021-01-06 15:37 | PM.IMHP ---
History of Present Illness Date of Service: 01/06/21 Chief Complaint: Fall This is a 60-year-old male with multiple medical problems and frequent admissions to the hospital presented to the ED after a fall. Patient says he fell because it was dark and he could not get up, it is unclear how long he was on the ground. In the emergency department he was found to have multiple abnormalities. BUN/creatinine was 51/1.58 up from 22/0.93 on his previous discharge. He was hypoglycemic with random hypoglycemia of 23. He received an amp of dextrose. He was started on D5 normal saline to maintain sugars. He was also noted to be hypothermic with a temperature of 86.3 and was started on Fransico Hugger. His core temperature has improved to 94.2 at this time. He was hypotensive on arrival with blood pressure of 60 for over 28. He received albumin and 500 cc bolus of normal saline. His blood pressure has increased to the high 80s-low 90s. Although patient is a poor historian he seems to be asymptomatic at this time. His complaints are limited to hunger at this time. Patient has had similar to previous presentations in the past. He has a poor prognosis given heart failure, severe mitral stenosis and palliative care has been discussed in the past. The emergency room provider called his healthcare proxy today who confirmed he would be willing to make the patient [employer] FE[employer]ER if medical management was unsuccessful. Review of Systems Review of Systems: Yes Unobtainable due to mental condition [facility] Medical History Acute retention of urine Afib CHF (congestive heart failure) Hepatic encephalopathy Persistent atrial fibrillation Quit consuming alcohol in remote past Schizophrenia Severe mitral valve stenosis Traumatic brain injury Family History Father No problems noted. Mother HTN (hypertension) Social History Household Members: Family Housing: House Alcohol intake: never Smoking Status: Never smoker Use of substances other than those prescribed or required for medical reasons: No Advance Directives: No Advance Directives Information Provided: Yes service: No Current occupational status: unemployed Meds Allergies Allergy/AdvReac Type Severity Reaction Status Date / Time Fish Containing Products Allergy Unknown UNKNOWN Verified 09/12/20 07:09 PEPPERS, JALAPENO Allergy Unknown UNKNOWN Uncoded 09/12/20 07:09 Home Medications Medication Instructions Recorded Confirmed Type digoxin [Digitek] 125 mcg PO DAILY 09/12/20 01/06/21 History omeprazole 40 mg PO DAILY@0630 09/12/20 01/06/21 History risperidone 2 mg PO BID 09/12/20 01/06/21 History clotrimazole 1 appl TOPICAL BID 11/04/20 01/06/21 History warfarin 7.5 mg PO DAILY 11/20/20 01/06/21 History magnesium oxide 400 mg PO BID 01/06/21 01/06/21 History potassium chloride [Klor-Con M20] 20 meq PO DAILY 01/06/21 01/06/21 History Physical Exam Vital Signs and Narrative: Vital Signs: Last Vital Signs Temp 94.2 F L 01/06/21 12:00 Pulse 82 01/06/21 15:18 Resp 12 01/06/21 15:18 BP 96/50 L 01/06/21 15:18 Pulse Ox 100 01/06/21 15:18 Body Mass Index 18.4 Const: General: alert Nutritional Appearance: well nourished HENMT: Head: Yes normocephalic and Yes atraumatic Eyes: Sclerae: sclerae normal Chest: Chest palpation & inspection: normal inspection of the chest Resp: Effort & Inspection: normal respiratory effort and no respiratory distress Cardio: Rhythm: abnormal rhythm irregularly irregular GI: Palpation (GI): Soft to palpation and nontender Skin: Other: warm and dry General skin exam: no rashes or lesions noted Neuro: Cranial nerves: Yes CN's II-XII intact bilaterally and Yes Bilaterally intact EOM present Extrem: Other: trace edema b/l lower extremities Results Labs CBC and Chem 7: 01/06/21 08:56 01/06/21 08:55 Labs: Laboratory Results - last 24 hr 01/06/21 01/06/21 01/06/21 08:55 08:55 08:55 MCV MCH MCHC RDW Plt Count MPV Immature Gran % (Auto) Neut % (Auto) Lymph % (Auto) [place] % (Auto) Eos % (Auto) Baso % (Auto) Lymph # (Auto) [place] # (Auto) Eos # (Auto) Baso # (Auto) Abs Immat Gran (auto) Absolute Neuts (auto) Absolute Nucleated RBC Nucleated RBC % (auto) Smear Tech's Comments PT INR APTT VBG pH VBG pCO2 VBG pO2 VBG HCO3 VBG O2 Saturation VBG Base Excess Anion Gap 18 Estim Creat Clear Calc 39.6 Estimated GFR 45 POC Glucose Random Glucose 23 L* Lactic Acid 1.7 Calcium 8.9 Magnesium 2.3 Total Bilirubin 4.9 H Direct Bilirubin 3.4 H AST 77 H ALT 26 Alkaline Phosphatase 134 H Ammonia 32 Total Creatine Kinase 269 H Troponin I High Sens B-Natriuretic Peptide Total Protein 7.2 Albumin 3.0 L Lipase 69 TSH 22.92 H Digoxin COVID-19 ([facility]) COVID-ImageTag 01/06/21 01/06/21 01/06/21 08:55 08:55 08:56 MCV 64.5 L MCH 21.8 L MCHC 33.7 RDW 22.5 H Plt Count 53 L MPV Not Reportable Immature Gran % (Auto) 0.2 Neut % (Auto) 80.5 H Lymph % (Auto) 7.2 L [place] % (Auto) 8.5 Eos % (Auto) 3.2 Baso % (Auto) 0.4 Lymph # (Auto) 0.4 L [place] # (Auto) 0.4 Eos # (Auto) 0.2 Baso # (Auto) 0.0 Abs Immat Gran (auto) 0.01 Absolute Neuts (auto) 4.1 Absolute Nucleated RBC 0.130 H Nucleated RBC % (auto) 2.6 H Smear Tech's Comments VERIFIED PT INR APTT VBG pH VBG pCO2 VBG pO2 VBG HCO3 VBG O2 Saturation VBG Base Excess Anion Gap Estim Creat Clear Calc Estimated GFR POC Glucose Random Glucose Lactic Acid Calcium Magnesium Total Bilirubin Direct Bilirubin AST ALT Alkaline Phosphatase Ammonia Total Creatine Kinase Troponin I High Sens 22.9 D B-Natriuretic Peptide 2508 H Total Protein Albumin Lipase TSH Digoxin COVID-19 ([facility]) Negative COVID-19 [employer] See Note 01/06/21 01/06/21 01/06/21 08:56 09:44 09:44 MCV MCH MCHC RDW Plt Count MPV Immature Gran % (Auto) Neut % (Auto) Lymph % (Auto) [place] % (Auto) Eos % (Auto) Baso % (Auto) Lymph # (Auto) [place] # (Auto) Eos # (Auto) Baso # (Auto) Abs Immat Gran (auto) Absolute Neuts (auto) Absolute Nucleated RBC Nucleated RBC % (auto) Smear Tech's Comments PT 38.0 H INR 3.2 H APTT 49.8 H VBG pH 7.40 VBG pCO2 28 VBG pO2 104 VBG HCO3 18 VBG O2 Saturation 98.0 VBG Base Excess -5.5 Anion Gap Estim Creat Clear Calc Estimated GFR POC Glucose Random Glucose Lactic Acid Calcium Magnesium Total Bilirubin Direct Bilirubin AST ALT Alkaline Phosphatase Ammonia Total Creatine Kinase Troponin I High Sens B-Natriuretic Peptide Total Protein Albumin Lipase TSH Digoxin < 0.3 L COVID-19 ([facility]) COVID-19 [facility] [place] 01/06/21 01/06/21 01/06/21 10:01 11:09 12:40 MCV MCH MCHC RDW Plt Count MPV Immature Gran % (Auto) Neut % (Auto) Lymph % (Auto) [place] % (Auto) Eos % (Auto) Baso % (Auto) Lymph # (Auto) [place] # (Auto) Eos # (Auto) Baso # (Auto) Abs Immat Gran (auto) Absolute Neuts (auto) Absolute Nucleated RBC Nucleated RBC % (auto) Smear Tech's Comments PT INR APTT VBG pH VBG pCO2 VBG pO2 VBG HCO3 VBG O2 Saturation VBG Base Excess Anion Gap Estim Creat Clear Calc Estimated GFR POC Glucose 155 H 73 117 H Random Glucose Lactic Acid Calcium Magnesium Total Bilirubin Direct Bilirubin AST ALT Alkaline Phosphatase Ammonia Total Creatine Kinase Troponin I High Sens B-Natriuretic Peptide Total Protein Albumin Lipase TSH Digoxin COVID-19 ([facility]) COVID-19 Clin Com Imaging Radiologist's Impressions: Impressions Cervical Spine CT 01/06/21 08:26 IMPRESSION: HEAD CT: Limited exam due to motion artifact. Generalized atrophy and nonspecific periventricular white matter disease. Soft tissue swelling adjacent to the left parietal bone. CERVICAL SPINE: Curvature of the cervical spine. 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 Mild degenerative changes. Chest CT 01/06/21 08:26 IMPRESSION: Very enlarged cardiac silhouette. Moderate-sized pericardial effusion similar to previous exam. Enlarged pulmonary arteries. Increased attenuation in the lungs are questionable for mild pulmonary edema or pneumonitis. Bilateral pleural effusions, right greater than left. No pneumothorax. Small amount of ascites similar to previous exam. Right anterior third rib fractures similar to previous exam. No acute fracture seen. Head CT 01/06/21 08:26 IMPRESSION: HEAD CT: Limited exam due to motion artifact. Generalized atrophy and nonspecific periventricular white matter disease. Soft tissue swelling adjacent to the left parietal bone. CERVICAL SPINE: Curvature of the cervical spine. 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 Mild degenerative changes. Assessment and Plan (1) Hypothermia: Qualifiers: Encounter type: initial encounter Qualified Code(s): T68.XXXA - Hypothermia, initial encounter Status: Acute (2) Acute renal failure: Qualifiers: Acute renal failure type: unspecified Qualified Code(s): N17.9 - Acute kidney failure, unspecified Status: Acute (3) Acute hypotension: Status: Acute This is a 52 a a.m. with a history of right heart failure, atrial fibrillation Coumadin, severe mitral stenosis, TBI, frequent admissions who presented to the ED after fall found to have numerous abnormalities RUDY Likely related to hypotension h/o cardiorenal syndrome. does not appear significantly fluid overloaded at this time -hold diuretics and follow renal function closely Hypotension No evidence of infection at this time Blood pressure has improved somewhat after fluid, albumin in the ED -monitor blood pressure closely -check ACTH Hypothermia Temperature improved from 86.3-94 with Fransico Hugger May be related to underlying hypothyroidism Hypoglycemia continue D5NS, frequent POC until stabilized h/o recurrent hypoglycemia hypothyroidism TSH 22 on last admission will check free t3, free t4 Atrial fibrillation Continue digoxin, metoprolol if BP allows Coumadin on hold, INR 3.2 follow INR daily prolonged qt chronic tele monitoring repeat ekg in am anemia & TCP chronic and at baseline CHF hold diuretics for hypotension, RUDY follow fluid status closely dvt ppx - coumadin code status - dnr/dni This case was discussed with Dr. Crowder
--- NOTE | 2021-01-06 19:06 | PC.NURSE ---
patient noted in stone cold starte. patient not verbally responding. poc 17. 2 amps of dextrose given. patient presently up and more alert.
[2021-01-06 19:16] LABS: Glucose, Whole Blood 17 mg/dL (60-115)
[2021-01-06 19:56] LABS: Glucose, Whole Blood 202 mg/dL (60-115)
--- NOTE | 2021-01-06 20:11 | PM.EVENT ---
Event Note Date of Service: 01/06/21 Event Note: Called for patient having seizure. Given 2 mg ativan by ED provider. POC checked 202. Currently post-ictal CT head done earlier in day without ischemia or bleed Stat cortisol, ACTH, BMP ordered. Seizure precautions, prn ativan added. If recurrent seizure activity will consider loading with keppra and neuro consult Will give 6 mg IV dexamethasone now Will repeat brain CT Pt examined & discussed with Dr. Solis
[2021-01-06] MEDS: LORazepam 2 MG/ML VIAL IVPUSH (20:31)
--- NOTE | 2021-01-06 20:42 | MHC.CM.PN ---
Pt condition grave. Unable to speak with pt. Spoke with Jaskaranhankcharlienrique Barrington, Guardian,([phone]), aware of how ill pt is and has already spoken with MD to make pt. 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 Pt is DNR. Instructed to call sister for other information. CM spoke with sister, Michelle, who tells CM that pt hasn't eaten for days, despite her making him good food. Has help from family to care for him. Her son bathes pt. Has walker, cane and wheelchair for him. Does not have any services.Aware that pt is very ill and will be admitted to the floor. d/c plan depending on medical condition. CM to follow for d/c needs.
[2021-01-06] MEDS: Dextrose 10 % 1,000 ML 50 ML IVCONT (20:48)
[2021-01-06 21:05] LABS: Glucose, Whole Blood 136 mg/dL (60-115)
[2021-01-06 21:25] LABS: Alanine Aminotransferase 28 U/L (0-40); Albumin Level 3.4 g/dL (3.5-5.0); Alkaline Phosphatase 129 U/L (39-117); Anion Gap 19 (12-20); Aspartate Amino Transferase 78 U/L (5-37); Bilirubin Total 5.1 mg/dL (0.0-1.0); Blood Urea Nitrogen 53 mg/dL (9-16); Calcium 8.9 mg/dL (8.4-10.2); Carbon Dioxide 18 mmol/L (22-29); Chloride 100 mmol/L (96-108); Creatinine Clr Calc Pharmacy 31.7; Estimated Glomerular Filt Rate 35; Glucose Random 135 mg/dL (60-115); Potassium 4.8 mmol/L (3.3-5.1); Sodium 132 mmol/L (135-145); Total Protein 7.6 g/dL (6.5-8.0)
[2021-01-06 22:12] LABS: Glucose, Whole Blood 117 mg/dL (60-115)
[2021-01-07 00:48] LABS: Free T4 (Free Thyroxine) 0.95 ng/dL (0.71-1.85)
--- NOTE | 2021-01-07 01:09 | PC.NURSE ---
PT AT THIS TIME. HOSPITALIST AWARE. MD AT BEDSIDE.
--- NOTE | 2021-01-07 01:10 | PC.NURSE ---
CONTACTED [facility] AND WILL RETURN CALL.
--- NOTE | 2021-01-07 01:36 | PC.NURSE ---
SPOKE WITH [place] SISTER. FAMILY UNSURE WHICH HOME TO SEND PT TO. FAMILY UNABLE TO VIEW BODY AND WILL SEE PT AT HOME. PT MOVED TO [facility] [place] AT THIS TIME.
--- NOTE | 2021-01-07 01:58 | PC.NURSE ---
SPOKE WITH FAMILY IN WAITING ROOM REGARDING PT.
--- NOTE | 2021-01-07 02:18 | PC.NURSE ---
[facility] RETURNED CALL AND DECLINED PT.
--- NOTE | 2021-01-07 07:39 | PM.DS ---
DS: Providers Provider Date of Service: 01/09/21 Date of admission: 01/06/21 15:36 Primary care physician: [facility] DS: Diagnosis Discharge Diagnosis (1) Hypothermia: Status: Acute (2) Acute renal failure: Status: Acute (3) Acute hypotension: Status: Acute DS: Medications Discharge Medications Home Medications: Home Medications Medication Instructions Recorded Confirmed digoxin [Digitek] 125 mcg PO DAILY 09/12/20 01/06/21 omeprazole 40 mg PO DAILY@0630 09/12/20 01/06/21 risperidone 2 mg PO BID 09/12/20 01/06/21 clotrimazole 1 appl TOPICAL BID 11/04/20 01/06/21 warfarin 7.5 mg PO DAILY 11/20/20 01/06/21 magnesium oxide 400 mg PO BID 01/06/21 01/06/21 potassium chloride [Klor-Con M20] 20 meq PO DAILY 01/06/21 01/06/21 Previous Rx's Medication Instructions Recorded cetirizine 10 mg PO DAILY #30 tab 10/08/20 epinephrine [EpiPen 2-Sumeet] 0.3 mg IM Q10M PRN #2 ea 10/08/20 metoprolol succinate 12.5 mg PO DAILY #15 tab 10/08/20 bumetanide 3 mg PO BID@0800,1700 #60 tab 11/09/20 metolazone 2.5 mg PO MoWeFr@0900 #30 tab 12/03/20 walker #1 ea 12/03/20 levothyroxine 75 mcg PO DAILY@0600 #30 tab 12/18/20 walker #1 ea 12/18/20 DS: Summary Hospital Course Hospital Course: HPI 60-year-old male with multiple medical problems and frequent admissions to the hospital presented to the ED after a fall. Patient says he fell because it was dark and he could not get up, it is unclear how long he was on the ground. In the emergency department he was found to have multiple abnormalities. BUN/creatinine was 51/1.58 up from 22/0.93 on his previous discharge. He was hypoglycemic with random hypoglycemia of 23. He received an amp of dextrose. He was started on D5 normal saline to maintain sugars. He was also noted to be hypothermic with a temperature of 86.3 and was started on Colin Hugger. His core temperature has improved to 94.2 at this time. He was hypotensive on arrival with blood pressure of 60 for over 28. He received albumin and 500 cc bolus of normal saline. His blood pressure has increased to the high 80s-low 90s. Although patient is a poor historian he seems to be asymptomatic at this time. His complaints are limited to hunger at this time. Patient has had similar to previous presentations in the past. He has a poor prognosis given heart failure, severe mitral stenosis and palliative care has been discussed in the past. The emergency room provider called his healthcare proxy today who confirmed he would be willing to make the patient [employer] if medical management was unsuccessful. hospital course 60 year old male with multiple medical problems and recurrent admission admitted with status post fall admitted with hypotension hypothermia and hypoglycemia, blood pressure improved with IV fluid, hypoglycemia was resolved with IV dextrose , hypothermia was resolved with colin hugger , during the hospital course patient again became hypoglycemia received IV dextrose, hypoglycemia was resolved, patient has episode of seizure received Ativan for siezure , CT head on admission shows no acute abnormality, patient became bradycardic and went into asystole, patient was DNR DNI resuscitation was not attempted, patient on 01/08 at 12.48 am.family was notified. Time Spent with Patient Time attestation: Total time spent providing and/or coordinating discharge services: Discharge coordination time: Greater than 30 minutes Physical Exam Vital Signs: Vital Signs: Last Vital Signs Temp 94.1 F L 01/06/21 23:34 Pulse 91 01/06/21 23:34 Resp 22 H 01/06/21 23:34 BP 111/60 01/06/21 23:34 Pulse Ox 97 01/06/21 19:17 Body Mass Index 18.4 DS: Data Data Completed and Pending Completed studies during hospitalization [Text1]: Procedures Transfusion of Nonautologous Red Blood Cells into Peripheral Vein, Percutaneous Approach (11/19/20) Labs on day of discharge: Laboratory Tests 01/06/21 01/06/21 01/06/21 08:55 08:55 08:55 WBC RBC Hgb Hct MCV MCH MCHC RDW Plt Count MPV Immature Gran % (Auto) Neut % (Auto) Lymph % (Auto) Alpine % (Auto) Eos % (Auto) Baso % (Auto) Lymph # (Auto) Alpine # (Auto) Eos # (Auto) Baso # (Auto) Abs Immat Gran (auto) Absolute Neuts (auto) Absolute Nucleated RBC Nucleated RBC % (auto) Smear Tech's Comments PT INR APTT VBG pH VBG pCO2 VBG pO2 VBG HCO3 VBG O2 Saturation VBG Base Excess Sodium 132 L Potassium 4.5 Chloride 99 Carbon Dioxide 20 L Anion Gap 18 BUN 51 H D Creatinine 1.58 H Estim Creat Clear Calc 39.6 Estimated GFR 45 POC Glucose Random Glucose 23 L* Lactic Acid 1.7 Calcium 8.9 Magnesium 2.3 Total Bilirubin 4.9 H Direct Bilirubin 3.4 H AST 77 H ALT 26 Alkaline Phosphatase 134 H Ammonia 32 Total Creatine Kinase 269 H Troponin I High Sens B-Natriuretic Peptide Total Protein 7.2 Albumin 3.0 L Lipase 69 TSH 22.92 H Free T4 Free Cortisol Digoxin COVID-19 ([facility]) [employer] 01/06/21 01/06/21 01/06/21 08:55 08:55 08:56 WBC 5.0 RBC 4.09 L Hgb 8.9 L Hct 26.4 L MCV 64.5 L MCH 21.8 L MCHC 33.7 RDW 22.5 H Plt Count 53 L MPV Not Reportable Immature Gran % (Auto) 0.2 Neut % (Auto) 80.5 H Lymph % (Auto) 7.2 L Alpine % (Auto) 8.5 Eos % (Auto) 3.2 Baso % (Auto) 0.4 Lymph # (Auto) 0.4 L Alpine # (Auto) 0.4 Eos # (Auto) 0.2 Baso # (Auto) 0.0 Abs Immat Gran (auto) 0.01 Absolute Neuts (auto) 4.1 Absolute Nucleated RBC 0.130 H Nucleated RBC % (auto) 2.6 H Smear Tech's Comments VERIFIED PT INR APTT VBG pH VBG pCO2 VBG pO2 VBG HCO3 VBG O2 Saturation VBG Base Excess Sodium Potassium Chloride Carbon Dioxide Anion Gap BUN Creatinine Estim Creat Clear Calc Estimated GFR POC Glucose Random Glucose Lactic Acid Calcium Magnesium Total Bilirubin Direct Bilirubin AST ALT Alkaline Phosphatase Ammonia Total Creatine Kinase Troponin I High Sens 22.9 D B-Natriuretic Peptide 2508 H Total Protein Albumin Lipase TSH Free T4 Free Cortisol Digoxin COVID-19 ([facility]) Negative COVID-ciValue Com See Note 01/06/21 01/06/2121 08:56 09:44 09:44 WBC RBC Hgb Hct MCV MCH MCHC RDW Plt Count MPV Immature Gran % (Auto) Neut % (Auto) Lymph % (Auto) Alpine % (Auto) Eos % (Auto) Baso % (Auto) Lymph # (Auto) Alpine # (Auto) Eos # (Auto) Baso # (Auto) Abs Immat Gran (auto) Absolute Neuts (auto) Absolute Nucleated RBC Nucleated RBC % (auto) Smear Tech's Comments PT 38.0 H INR 3.2 H APTT 49.8 H VBG pH 7.40 VBG pCO2 28 VBG pO2 104 VBG HCO3 18 VBG O2 Saturation 98.0 VBG Base Excess -5.5 Sodium Potassium Chloride Carbon Dioxide Anion Gap BUN Creatinine Estim Creat Clear Calc Estimated GFR POC Glucose Random Glucose Lactic Acid Calcium Magnesium Total Bilirubin Direct Bilirubin AST ALT Alkaline Phosphatase Ammonia Total Creatine Kinase Troponin I High Sens B-Natriuretic Peptide Total Protein Albumin Lipase TSH Free T4 Free Cortisol Digoxin < 0.3 L COVID-19 ([facility]) COVID-[facility] 01/06/21 01/06/21 01/06/21 10:01 11:09 12:40 WBC RBC Hgb Hct MCV MCH MCHC RDW Plt Count MPV Immature Gran % (Auto) Neut % (Auto) Lymph % (Auto) Alpine % (Auto) Eos % (Auto) Baso % (Auto) Lymph # (Auto) Alpine # (Auto) Eos # (Auto) Baso # (Auto) Abs Immat Gran (auto) Absolute Neuts (auto) Absolute Nucleated RBC Nucleated RBC % (auto) Smear Tech's Comments PT INR APTT VBG pH VBG pCO2 VBG pO2 VBG HCO3 VBG O2 Saturation VBG Base Excess Sodium Potassium Chloride Carbon Dioxide Anion Gap BUN Creatinine Estim Creat Clear Calc Estimated GFR POC Glucose 155 H 73 117 H Random Glucose Lactic Acid Calcium Magnesium Total Bilirubin Direct Bilirubin AST ALT Alkaline Phosphatase Ammonia Total Creatine Kinase Troponin I High Sens B-Natriuretic Peptide Total Protein Albumin Lipase TSH Free T4 Free Cortisol Digoxin COVID-19 ([facility]) [facility] 01/06/21 01/06/21 01/06/21 18:58 19:53 20:43 WBC RBC Hgb Hct MCV MCH MCHC RDW Plt Count MPV Immature Gran % (Auto) Neut % (Auto) Lymph % (Auto) Alpine % (Auto) Eos % (Auto) Baso % (Auto) Lymph # (Auto) Alpine # (Auto) Eos # (Auto) Baso # (Auto) Abs Immat Gran (auto) Absolute Neuts (auto) Absolute Nucleated RBC Nucleated RBC % (auto) Smear Tech's Comments PT INR APTT VBG pH VBG pCO2 VBG pO2 VBG HCO3 VBG O2 Saturation VBG Base Excess Sodium Potassium Chloride Carbon Dioxide Anion Gap BUN Creatinine Estim Creat Clear Calc Estimated GFR POC Glucose 17 L* 202 H Random Glucose Lactic Acid Calcium Magnesium Total Bilirubin Direct Bilirubin AST ALT Alkaline Phosphatase Ammonia Total Creatine Kinase Troponin I High Sens B-Natriuretic Peptide Total Protein Albumin Lipase TSH Free T4 Free Cortisol Cancelled Digoxin COVID-19 ([facility]) [facility]GL/[facility] 01/06/21 01/06/21 01/06/21 20:43 21:02 22:08 WBC RBC Hgb Hct MCV MCH MCHC RDW Plt Count MPV Immature Gran % (Auto) Neut % (Auto) Lymph % (Auto) Alpine % (Auto) Eos % (Auto) Baso % (Auto) Lymph # (Auto) Alpine # (Auto) Eos # (Auto) Baso # (Auto) Abs Immat Gran (auto) Absolute Neuts (auto) Absolute Nucleated RBC Nucleated RBC % (auto) Smear Tech's Comments PT INR APTT VBG pH VBG pCO2 VBG pO2 VBG HCO3 VBG O2 Saturation VBG Base Excess Sodium 132 L Potassium 4.8 Chloride 100 Carbon Dioxide 18 L Anion Gap 19 BUN 53 H Creatinine 1.97 H Estim Creat Clear Calc 31.7 Estimated GFR 35 POC Glucose 136 H 117 H Random Glucose 135 H D Lactic Acid Calcium 8.9 Magnesium Total Bilirubin 5.1 H Direct Bilirubin AST 78 H ALT 28 Alkaline Phosphatase 129 H Ammonia Total Creatine Kinase Troponin I High Sens B-Natriuretic Peptide Total Protein 7.6 Albumin 3.4 L Lipase TSH Free T4 0.95 Free Cortisol Digoxin COVID-19 ([facility]) [facility] Discharge Plan Discharge Date/Time: 01/07/21 00:58 Patient Disposition: Discharge Medications: No Action clotrimazole 1 % Cream 1 appl TOPICAL BID RF: 0 bumetanide 1 mg Tablet 3 mg PO BID@0800,1700 Qty: 60 RF: 0 potassium chloride [Klor-Con M20] 20 mEq tablet,ER particles/crystals 20 meq PO DAILY RF: 0 magnesium oxide 400 mg (241.3 mg magnesium) tablet 400 mg PO BID RF: 0 omeprazole 40 mg Capsule,Delayed Release(Dr/Ec) 40 mg PO DAILY@0630 RF: 0 risperidone 2 mg Tablet 2 mg PO BID RF: 0 digoxin [Digitek] 125 mcg (0.125 mg) Tablet 125 mcg PO DAILY RF: 0 metoprolol succinate 25 mg tablet extended release 24 hr 12.5 mg PO DAILY Qty: 15 RF: 1 cetirizine 10 mg tablet 10 mg PO DAILY Qty: 30 RF: 0 epinephrine [EpiPen 2-Sumeet] 0.3 mg/0.3 mL auto-injector 0.3 mg IM Q10M PRN (Reason: anaphylaxis) Qty: 2 RF: 0 warfarin 7.5 mg Tablet 7.5 mg PO DAILY RF: 0 metolazone 2.5 mg Tablet 2.5 mg PO MoWeFr@0900 Qty: 30 RF: 0 (DME) kati Peralta See Rx Instructions .ROUTE .MEDSUPPLY Qty: 1 RF: 0 levothyroxine 75 mcg Tablet 75 mcg PO DAILY@0600 Qty: 30 RF: 0 (DME) kati Peralta See Rx Instructions .ROUTE .MEDSUPPLY Qty: 1 RF: 0 Discharge Date/Time: 01/07/21 01:45
[2021-01-08 09:07] LABS: Triiodothyronine T3 Free 1.9 pg/mL (2.3-4.2)
--- NOTE | 2021-01-09 19:07 | P.EN_ITS ---
Event Note Date of Service: 01/08/21 Event Note: Received a call from ED nurse that pt bradying down and close to e xpiring. by the time I reached the ED pt had . Pt excpired in the ED at 12:48 am on 01/08/2021 as a result of cardiac arrest possibly 2/2 respiratory decline.
== END 2021-01-07 01:45 | disposition expired | DRG 207 ==
LOC: HO.ED 08:35 → HO.EDOVER 15:55
PROVIDERS: Physician Assistant Medical; Admitting Provider Internal Medicine; Emergency Provider Emergency Medicine; Visit Provider Internal Medicine
DX: I95.9 Hypotension, unspecified (principal); N17.9 Acute kidney failure, unspecified; R56.9 Unspecified convulsions; R68.0 Hypothermia, not associated with low environmental temperature; I48.91 Unspecified atrial fibrillation; E03.9 Hypothyroidism, unspecified; R94.31 Abnormal electrocardiogram [ECG] [EKG]; Z20.822 Contact with and (suspected) exposure to COVID-19; Z87.820 Personal history of traumatic brain injury; Z91.19 Patient's noncompliance with other medical treatment and regimen; Z79.01 Long term (current) use of anticoagulants; Z79.890 Hormone replacement therapy; Z79.899 Other long term (current) drug therapy; Z66 Do not resuscitate
CPT/HCPCS: 36415; 70450; 71250; 72125; 80048; 80053; 80076; 80162; 82140; 82550; 82803; 82947; 83605; 83690; 83735; 83880; 84439; 84443; 84481; 84484; 85025; 85610; 85730; 87040; 87635; 93005; 96365; 96366; 96367; 96375; 96376; 99285; 99291; J0692; J2060; P9047